=== PATIENT | male | born 1935 | race Caucasian/White ===

== ENCOUNTER → 2020-03-15 09:49 | Outpatient (CLI) | payer MEDICARE, BC, SELFPAY ==
--- NOTE | 2020-03-15 09:55 | US_ITS ---
PROCEDURE: US SOFT TISSUE HEAD AND NECK CLINICAL INDICATION: RT NECK MASS COMPARISON: No exams were available for comparison FINDINGS: A large palpable mass within the area of the right anterior cervical triangle demonstrated a nonvascular solid echogenic lesion measuring 52 millimeters x 24 millimeters x 35 millimeters. 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
== END ==
PROVIDERS: PCP Internal Medicine Adolescent Medicine; Visit Provider Nurse Practitioner Family
DX: R22.1 Localized swelling, mass and lump, neck (principal)
CPT/HCPCS: 76536

== ENCOUNTER → 2022-06-25 10:18 | Outpatient (CLI) | payer MEDICARE, BC, SELFPAY ==
[2022-06-26 13:00] LABS: Hemoglobin A1C 7.1 % (4.0-6.0)
== END ==
PROVIDERS: PCP Family Medicine; Visit Provider Nurse Practitioner Family
DX: R73.09 Other abnormal glucose (principal)
CPT/HCPCS: 83036

== ENCOUNTER → 2022-06-25 11:23 | Outpatient (CLI) | payer MEDICARE, BC, SELFPAY ==
--- NOTE | 2022-06-25 11:34 | XR_ITS ---
FINAL REPORT CLINICAL HISTORY: neck pain FINDINGS: CERVICAL SPINE 2 views were obtained. There is no acute fracture. There is no malalignment. There are moderate and severe degenerative changes with large disc osteophyte complexes at C5-6 and C6-7. There is no soft tissue abnormality. IMPRESSION: Moderate and severe degenerative changes at C5-6 and C6-7. No acute bony abnormality. Reviewed, Interpreted and Dictated by Jabier Santana III, MD Transcribed by Delmy Rodriguez Authenticated and [facility]
--- NOTE | 2022-06-25 11:34 | XR_ITS ---
FINAL REPORT CLINICAL HISTORY: Mid and upper back pain FINDINGS: THORACIC SPINE 2 views were obtained. There is no acute fracture. There is mild rightward curvature. There are moderate degenerative changes with osteophytes. There is no soft tissue abnormality. IMPRESSION: Degenerative change with no acute bony abnormality. Reviewed, Interpreted and Dictated by Jabier Santana III, MD Transcribed by Delmy Rodriguez Authenticated and [facility]
[2022-06-25 18:10] LABS: MANUAL DIFFERENTIAL MANUAL DIFFERENTIAL (MANUAL DIFF)
[2022-06-25 18:18] LABS: Chloride 103 mmol/L (98-107); Potassium 4.7 mmoL/L (3.5-5.1); Sodium 137 mmol/L (136-145)
[2022-06-25 18:21] LABS: Alanine Aminotransferase 24 U/L (12-78); Albumin Level 4.2 g/dl (3.5-5.0); Alkaline Phosphatase 139 U/L (38-126); Anion Gap 13.7 mEq/L (5-15); Aspartate Amino Transferase 35 U/L (17-59); Bilirubin,Total 0.5 mg/dl (0.2-1.3); Blood Urea Nitrogen 13 mg/dl (9-20); Carbon Dioxide 25 mmol/L (22.0-30.0); Estimated Glomerular Filt Rate 92 ml/min (>60); GFR (African American) 111 ML/MIN (>60); Globulin 2.1 g/dL (1.3-3.2); Total Protein,Serum 6.3 g/dl (6.3-8.2)
[2022-06-25 18:22] LABS: Glucose 144 mg/dl (74-100)
[2022-06-25 18:38] LABS: Basophils % 0.5 % (0.1-2.0); Eosinophils # 0.1 K/mm3 (0.0-0.4); Eosinophils % 0.5 % (0.1-12.0); Hematocrit 46.7 % (42.0-52.0); Hemoglobin 15.3 g/dL (14.1-18.0); Lymphocytes % 11.9 % (10-50); Mean Corpuscular HGB Conc 32.8 g/dL (31.8-35.4); Mean Corpuscular Hemoglobin 31.3 pg (27.0-31.2); Mean Corpuscular Volume 95.6 fl (80-94); Mean Platelet Volume 11.6 fl (7.4-10.4); Monocytes # 0.7 K/mm3 (0.1-1.0); Monocytes % 8.8 % (1.7-9.3); Neutrophils # 6.6 K/mm3 (1.8-7.8); Neutrophils % 78.3 % (37.0-80.0); Platelet Count 208 K/mm3 (142-424); Red Blood Count 4.88 M/mm3 (4.60-6.20); White Blood Count 8.4 K/mm3 (4.8-10.8)
[2022-06-25 20:26] LABS: Eosinophils % 2 % (0-3); Lymphocytes % 19 % (10-50); Monocytes % 7 % (2-9); Neutrophils % 72 % (42-76); Platelet Estimate Normal; RBC Morphology Normal; Total Cells Counted 100
== END ==
PROVIDERS: Nurse Practitioner Family; PCP Internal Medicine Adolescent Medicine; Visit Provider Family Medicine
DX: M54.2 Cervicalgia (principal); R73.09 Other abnormal glucose
CPT/HCPCS: 72040; 72070; 80053; 83036; 85007; 85014; 85018; 85048; 85049

== ENCOUNTER → 2022-07-02 08:16 | Outpatient (CLI) | payer MEDICARE, BC, SELFPAY ==
--- NOTE | 2022-07-02 08:16 | CT_ITS ---
FINAL REPORT CLINICAL HISTORY: neck pain, severe degenerative changes on x ray FINDINGS: Axial CT images of the cervical spine were obtained without contrast. Sagittal and coronal reformatted images were also obtained. This study was performed with techniques to keep radiation doses as low as reasonably achievable (ALARA). Individualized dose reduction techniques using automated exposure control or adjustment of mA and/or kV according to the patient's size were employed. There is no evidence of fracture or dislocation. There is mild anterolisthesis of C3 on C4. There are moderate and severe degenerative changes are seen. There are disc osteophyte complexes at C4-5, C5-6, and C6-7 with moderate to severe neural foraminal narrowing at these levels. There is no evidence of canal stenosis. No paraspinous soft tissue abnormality is seen. Limited images of the upper thorax are unremarkable. IMPRESSION: Multilevel degenerative disc disease and spondylosis as above. Reviewed, Interpreted and Dictated by Jabier Santana III, MD Transcribed by Delmy Rodriguez Authenticated and [facility]
== END ==
PROVIDERS: PCP Family Medicine; Visit Provider Nurse Practitioner Family
DX: M54.2 Cervicalgia (principal)
CPT/HCPCS: 72125

== ENCOUNTER 2024-07-08 10:00 | Outpatient (RCR) | payer MEDICARE, BC, SELFPAY | END 2024-07-28 15:00 | disposition home or self-care (01) | LOC: PT 10:00 | PROVIDERS: Visit Provider Nurse Practitioner Family | DX: M54.6 Pain in thoracic spine (principal) | CPT/HCPCS: 97110; 97140; 97163; 97164; 97530 ==

== ENCOUNTER 2025-02-08 15:10 | Outpatient (CLI) | payer MEDICARE, OTHER, SELFPAY ==
--- NOTE | 2025-02-08 15:30 | CT_ITS ---
FINAL REPORT TECHNIQUE: multiple axial CT images were performed from the foramen magnum to the vertex without enhancement. This study was performed with techniques to keep radiation doses as low as reasonably achievable (ALARA). Individualized dose reduction techniques using automated exposure control or adjustment of mA and/or kV according to the patient's size were employed. CLINICAL HISTORY: Encephalopathy COMPARISON: None FINDINGS: The ventricles are enlarged. There is moderate diffuse atrophy. There is periventricular white matter change likely related to small vessel disease. There is no evidence of hemorrhage. No masses are identified. No extra-axial fluid is seen. The sinuses are normal. IMPRESSION: Moderate atrophy and chronic changes without acute process. Reviewed, Interpreted and Dictated by Rainer Drew MD Transcribed by Isabella Machuca Authenticated and . [facility]
[2025-02-08 15:50] LABS: Basophils % 0.5 % (0.1-2.0); Eosinophils # 0.1 Kmm3 (0.0-0.4); Eosinophils % 1.4 % (0.1-12.0); Hematocrit 42.2 % (42.0-52.0); Hemoglobin 13.6 g/dL (14.1-18.0); Immature Granulocytes # 0.02 10^3uL; Immature Granulocytes % 0.4 %; Lymphocytes # 0.9 K/mm3 (0.7-4.5); Lymphocytes % 16.7 % (10-50); Mean Corpuscular HGB Conc 32.2 g/dL (31.8-35.4); Mean Corpuscular Hemoglobin 28.4 pg (27.0-31.2); Mean Corpuscular Volume 88.1 fl (80-94); Mean Platelet Volume 11.7 fl (7.4-10.4); Monocytes # 0.8 K/mm3 (0.1-1.0); Monocytes % 13.9 % (1.7-9.3); Neutrophils # 3.8 K/mm3 (1.8-7.8); Neutrophils % 67.1 % (37.0-80.0); Nucleated Red Blood Cells # 0 10^3/uL; Nucleated Red Blood Cells % 0 %; Platelet Count 184 K/mm3 (142-424); Red Blood Count 4.79 M/mm3 (4.60-6.20); Red Cell Distribution Width 14.3 % (11.5-17.5); Red Cell Distribution Width-SD 45.6 fL; White Blood Count 5.6 K/mm3 (4.8-10.8)
[2025-02-08 15:59] LABS: Alanine Aminotransferase 19 U/L (12-78); Albumin/Globulin Ratio 2.1 (1.1-1.8); Alkaline Phosphatase 109 U/L (38-126); Anion Gap 10.8 mEq/L (5-15); Aspartate Amino Transferase 26 U/L (17-59); Bilirubin,Total 0.6 mg/dl (0.2-1.3); Blood Urea Nitrogen 16 mg/dl (9-20); Calcium 9.4 mg/dl (8.4-10.2); Carbon Dioxide 27 mmol/L (22.0-30.0); Chloride 104 mmol/L (98-107); Estimated Glomerular Filt Rate 48 ml/min (>60); GFR (African American) 58 ML/MIN (>60); Globulin 1.9 g/dL (1.3-3.2); Glucose 108 mg/dl (74-100); Potassium 4.8 mmoL/L (3.5-5.1); Sodium 137 mmol/L (136-145); Total Protein,Serum 5.9 g/dl (6.3-8.2)
[2025-02-08 16:31] LABS: Thyroid Stimulating Hormone 2.78 uIU/mL (0.465-4.68)
[2025-02-08 16:37] LABS: RPR W/RFX Titers Nonreactive (Nonreactive)
[2025-02-08 16:50] LABS: Vitamin B12 603 pg/mL (239-931)
[2025-02-08 16:51] LABS: Erythrocyte Sedimentation Rate 10 mm/hr (0-20)
[2025-02-08 19:03] LABS: Folate 7.19 ng/mL
[2025-02-09 13:17] LABS: Anti-Centromere B Antibodies <0.2 AI (0.0-0.9); Anti-DNA (DS) Ab Qn <1 IU/mL (0-9); Anti-Jo-1 <0.2 AI (0.0-0.9); Anti-Smith Antibody <0.2 AI (0.0-0.9); Antichromatin Antibodies <0.2 AI (0.0-0.9); Antiscleroderma-70 Antibodies <0.2 AI (0.0-0.9); RNP Antibodies <0.2 AI (0.0-0.9); Sjogren's Anti-SS-A <0.2 AI (0.0-0.9); Sjogren's Anti-SS-B <0.2 AI (0.0-0.9)
== END 2025-02-08 23:59 | disposition home or self-care (01) ==
LOC: RAD 15:11
PROVIDERS: PCP Nurse Practitioner Family; Visit Provider Specialist
DX: G31.9 Degenerative disease of nervous system, unspecified (principal); G93.40 Encephalopathy, unspecified; I10 Essential (primary) hypertension
CPT/HCPCS: 36415; 70450; 80053; 82607; 82746; 84443; 85025; 85651; 86225; 86235; 86592

== ENCOUNTER 2025-09-11 09:44 | Inpatient (IN) | payer MEDICARE, OTHER, SELFPAY ==
--- OUTSIDE RECORDS SUMMARY | 2025-07-26 08:56 | XMS_ITS | Continuity of Care Document ---
Author Organization [facility] Phone Care Team Providers Care Support Services Specialist Name Role Phone MIMI ORTEGA Unavailable MIMI ORTEGA Primary Attending [phone] MIMI ORTEGA Admitting JESUS DAVEY Primary Care ALLERGIES AND ADVERSE REACTIONS ALLERGIES AND ADVERSE REACTIONS Code System Allergy Substance Adverse Reaction Date Reaction (Severity) Comment Status Reported By Updated [place] [id number] SNOMED CT Penicillins Adverse reaction to substance Not Specified active [id number] on July 23, 2025 4:40:24 PM [place] [id number] SNOMED CT Penicillins Adverse reaction to substance Not Specified active [id number] on July 23, 2025 4:40:24 PM UTC statins (Free Text Allergy) Adverse reaction to substance Not Specified active [id number] on July 23, 2025 4:40:23 PM UTC RESULTS Patient: VICE FRANCI NATION Date of : [birth year] LABORATORY RESULTS ORDER 100: CBC AUTO W DIFF ( LOINC: 72526-5) ORDER DATE: July 23, 2025 4:36:00 PM UTC Specimen Source: Whole Blood Specimen Type: Whole blood s ample PERFORMING LAB: [address] [id number] Result Comment: Final Result Date: July 23, 2025 4:42:00 PM UTC (TECH: LT) LOINC TEST FLAG RESULT REFERENCE RANGE UPDA FITZ BY 6690-2 Leukocytes [#/volume] in Blood by Automated count N 5.0 10^3/uL 4.5 10^3/uL - 11.5 10^3/uL July 23, 2025 4:42:00 PM UTC (TECH: LT) 789-8 Erythrocytes [#/volume] in Blood by Automated count N 4.28 10^6/uL 4.25 10^6/uL - 5.57 10^6/uL July 23, 2025 4:42:00 PM UTC (TECH: LT) 718-7 Hemoglobin [Mass/volume] in Blood L 12.2 g/dL 13.5 g/dL - 17.2 g/dL July 23, 2025 4:42:00 PM UTC (TECH: LT) 39068-5 Hematocrit [Volume Fraction] of Blood L 37.4 % 42.0 % - 52.0 % July 23, 2025 4:42:00 PM UTC (TECH: LT) 787-2 Erythrocyte mean corpuscular volume [Entitic volume] by Automated count N 87.4 fl 80 fl - 95 fl July 23, 2025 4:42:00 PM UTC (TECH: LT) 40160-1 Erythrocyte mean corpuscular hemoglobin [Entitic mass] in Blood from Fetus by Automated count N 28.5 pg 27.0 pg - 34.0 pg July 23, 2025 4:42:00 PM UTC (TECH: LT) 60696-7 Erythrocyte mean corpuscular hemoglobin concentration [Mass/volume] in Blood from Fetus by Automated count N 32.6 g/dL 32.0 g/dL - 36.0 g/dL July 23, 2025 4:42:00 PM UTC (TECH: LT) 78267-1 Platelets [#/volume] in Blood N 174 10^3/uL 150 10^3/uL - 450 10^3/uL July 23, 2025 4:42:00 PM UTC (TECH: LT) 66642-2 Erythrocyte distribution width [Ratio] N 14.1 % 12.3 % - 15.1 % July 23, 2025 4:42:00 PM UTC (TECH: LT) 75169-3 Platelet mean volume [Entitic volume] in Blood by Automated count H 11.6 fl 7.4 fl - 10.4 fl July 23, 2025 4:42:00 PM UTC (TECH: LT) 18410-1 Granulocytes/100 leukocytes in Blood by Automated count N 72.7 % 40 % - 75 % July 23, 2025 4:42:00 PM UTC (TECH: LT) 736-9 Lymphocytes/100 leukocytes in Blood by Automated count L 14.9 % 15 % - 57 % July 23, 2025 4:42:00 PM UTC (TECH: LT) 5905-5 Monocytes/100 leukocytes in Blood by Automated count N 10.4 % 4.0 % - 12.0 % July 23, 2025 4:42:00 PM UTC (TECH: LT) 713-8 Eosinophils/100 leukocytes in Blood by Automated count N 1.4 % 0.0 % - 4.0 % July 23, 2025 4:42:00 PM UTC (TECH: LT) 706-2 Basophils/100 leukocytes in Blood by Automated count N 0.4 % 0.0 % - 1.0 % July 23, 2025 4:42:00 PM UTC (TECH: LT) 46476-2 Immature granulocytes [#/volume] in Blood N 0.2 % 0.0 % - 0.8 % July 23, 2025 4:42:00 PM UTC (TECH: LT) 52138-4 Granulocytes [#/volume] in Blood by Automated count N 3.62 10^3/uL July 23, 2025 4:42:00 PM UTC (TECH: LT) 731-0 Lymphocytes [#/volume] in Blood by Automated count N 0.74 10^3/uL July 23, 2025 4:42:00 PM UTC (TECH: LT) 742-7 Monocytes [#/volume] in Blood by Automated count N 0.52 10^3/uL July 23, 2025 4:42:00 PM UTC (TECH: LT) 711-2 Eosinophils [#/volume] in Blood by Automated count N 0.07 10^3/uL July 23, 2025 4:42:00 PM UTC (TECH: LT) 704-7 Basophils [#/volume] in Blood by Automated count N 0.02 10^3/uL July 23, 2025 4:42:00 PM UTC (TECH: LT) 65646-0 Immature granulocytes [#/volume] in Blood N 0.01 10^3/uL July 23, 2025 4:42:00 PM UTC (TECH: LT) 63343-4 Manual differential performed [Presence] in Blood N NO July 23, 2025 4:42:00 PM UTC (TECH: LT) ORDER 200: COMP METABOLIC PA SONIA (LOINC: 45428-4) ORDER DATE: July 23, 2025 4:36:00 PM UTC Specimen Source: Plasma Specimen Type: Plasma specim en PERFORMING LAB: [address] [id number] Result Comment: Final Result Date: July 23, 2025 4:55:00 PM UTC (TECH: LT) LOINC TEST FLAG RESULT REFERENCE RANGE UPDA FITZ BY 2951-2 Sodium [Moles/volume ] in Serum or Plasma N 141 mmol/L 136 mmol/L - 145 mmol/L July 23, 2025 4:55:00 PM UTC (TECH: LT) 2823-3 Potassium [Moles/volume] in Serum or Plasma N 4.2 mmol/L 3.5 mmol/L - 5.1 mmol/L July 23, 2025 4:55:00 PM UTC (TECH: LT) 2075-0 Chloride [Moles/volu me] in Serum or Plasma N 107 mmol/L 98 mmol/L - 107 mmol/L July 23, 2025 4:55:00 PM UTC (TECH: LT) 8-9 Carbon dioxide, tota l [Moles/volume] in Serum or Plasma N 26 mmol/L 21 mmol/L - 32 mmol/L July 23, 2025 4:55:00 PM UTC (TECH: LT) 99985-8 Anion gap 3 in Serum or Plasma N 8.0 July 23, 2025 4:55:00 PM UTC (TECH: LT) 2345-7 Glucose [Mass/volume ] in Serum or Plasma H 137 mg/dL 70 mg/dL - 110 mg/dL July 23, 2025 4:55:00 PM UTC (TECH: LT) 3094-0 Urea nitrogen [Mass/volume] in Serum or Plasma N 15 mg/dL 7 mg/dL - 18 mg/dL July 23, 2025 4:55:00 PM UTC (TECH: LT) 2160-0 Creatinine [Mass/volume] in Serum or Plasma N 1.0 mg/dL 0.8 mg/dL - 1.3 mg/dL July 23, 2025 4:55:00 PM UT (TECH: LT) 3097-3 Urea nitrogen/Creatinine [Mass Ratio] in Serum or Plasma N 15.0 9 - July 23, 2025 4:55:00 PM UT (TECH: LT) 61225-5 Glomerular filtratio n rate/1.73 sq M.predicted by Creatinine-based formula (MDRD) N 73 mL/min >60 July 23, 2025 4:55:00 PM UT (TECH: LT) 65276-3 Osmolality of Serum or Plasma by calculated by sum of electrolytes N 296 mosm/kg 275 mosm/kg - 301 mosm/kg July 23, 2025 4:55:00 PM UT (TECH: LT) 2885-2 Protein [Mass/volume ] in Serum or Plasma N 6.4 g/dL 6.4 g/dL - 8.2 g/dL July 23, 2025 4:55:00 PM UT (TECH: LT) 1751-7 Albumin [Mass/volume ] in Serum or Plasma N 3.7 g/dL 3.4 g/dL - 5.0 g/dL July 23, 2025 4:55:00 PM UT (TECH: LT) 34758-7 Calcium [Mass/volume ] in Serum or Plasma N 9.2 mg/dL 8.5 mg/dL - 10.1 mg/dL July 23, 2025 4:55:00 PM UT (TECH: LT) 24556-5 Calcium [Mass/volume ] corrected for total protein in Serum or Plasma N 9.4 mg/dL 8.5 mg/dL - 10.1 mg/dL July 23, 2025 4:55:00 PM UT (TECH: LT) 1975-2 Bilirubin.total [Mass/volume] in Serum or Plasma N 0.8 mg/dL 0.4 mg/dL - 1.5 mg/dL July 23, 2025 4:55:00 PM UT (TECH: LT) 1920-8 Aspartate aminotransferase [Enzymatic activity/volume] in Serum or Plasma N 16 U/L 15 U/L - 37 U/L July 23, 2025 4:55:00 PM UTC (TECH: LT) 1742-6 Alanine aminotransferase [Enzymatic activity/volume] in Serum or Plasma N 18 U/L 12 U/L - 78 U/L July 23, 2025 4:55:00 PM UTC (TECH: LT) 6768-6 Alkaline phosphatase [Enzymatic activity/volume] in Serum or Plasma N 137 U/L July 23, 2025 4:55:00 PM UTC (TECH: LT) ORDER 300: TROPONIN QUANT (L OINC: 35273-7) ORDER DATE: July 23, 2025 4:36:00 PM UTC Specimen Source: Plasma Specimen Type: Plasma specim en PERFORMING LAB: [address] [id number] Result Comment: Final Result Date: July 23, 2025 4:55:00 PM UTC (TECH: LT) LOINC TEST [place] [address]-6 Troponin I.cardiac panel - Serum or Plasma by High sensitivity method N 15 ng/L 0 ng/L - 76 ng/L July 23, 2025 4:55:00 PM UTC (TECH: LT) ORDER 800: GLUCOSE BLD METER (LOINC: 01292-2) ORDER DATE: July 23, 2025 4:51:00 PM UTC Specimen Source: Whole Blood Specimen Type: Whole blood s ample PERFORMING LAB: [address] [id number] Result Comment: July 23, 2025 4:52:00 PM UTC Test performed by: [id number] ; Instrument: [id number] Final Result Date: July 23, 2025 4:51:00 PM UTC (TECH: HL7) LOINC TEST FLAG [place] [address]-8 Glucose [Mass/volume ] in Capillary blood by Glucometer H 134 mg/dl 70 mg/dl - 115 mg/dl July 23, 2025 4:51:00 PM UTC (TECH: HL7) LABORATORY NARRATIVE RESULTS Information is not available RADIOLOGY RESULTS ORDER 400: CT BRAIN HEAD WO (LOINC: 76672-4) ORDER DATE: July 23, 2025 4:36:00 PM UTC PERFORMING LAB: [address] [id number] Final Result Date: June 252024 5:39:43 PM UTC [address] [place] [address] Name: FRANCI MCGOWAN Exam Date: 07/23/2025 : 1935 Age 89 years Gender: M Physician: MIMI ORTEGA Facility: [facility] Facility HSV: Outpatient Exam: CT BRAIN HEAD WO EXAM DESCRIPTION: CT BRAIN HEAD WO CLINICAL HISTORY: 89 years Male, Dizziness COMPARISON: None. TECHNIQUE: Helical CT was performed from skull base to vertex without contrast. One or more of the following dose-optimizing techniques was utilized for this exam: automated exposure control, adjustment of the mA and/or kV according to patient size, and/or use of iterative reconstruction technique. FINDINGS:Ventricle size and sulcal pattern show central greater than cortical atrophy. Intracranial vascular calcifications are present. No intracranial mass, mass effect, hemorrhage, or established acute cortical infarct is demonstrated. No calvarial fracture is identified. The included paranasal sinuses and mastoid air cells are grossly aerated. IMPRESSION: 1. No acute brain abnormality is identified. 2. Cerebral atrophy. Electronically signed by: Daniel Russo MD 07/23/2025 01:43 PM EDT RP Dictated By: Daniel Russo Transcribed By: Transcribed On: 07/23/2025 1:39 PM Electronically signed by: Daniel Russo 07/23/2025 Thank you for referring FRANCI MCGOWAN to [facility]. Legally authenticated by BHAVIK VALENTE MD 2025-07-23 13:39:43 ORDER 900: CT ANGIO CHEST (L OINC: 37314-8) ORDER DATE: July 23, 2025 5:29:00 PM [facility] PERFORMING LAB: [address] [id number] Final Result Date: June 252024 5:45:[address] [place] [address] Name: FRANCI MCGOWAN Exam Date: 07/23/2025 : 1935 Age 89 years Gender: M Physician: MIMI ORTEGA Facility: [facility] Facility HSV: Outpatient Exam: CT ANGIO CHEST EXAMINATION: CTA chest and abdomen CLINICAL INDICATION: Dizziness, near syncope. Rule out aortic dissection. TECHNIQUE: This examination was performed according to an angiographic protocol with 3D post-processing. This involves 3D reconstructions, MIPs, volume rendered images and/or shaded surface rendering. One or more of the following dose reduction techniques were used: Automated exposure control, adjustment of the mA and/or kV according to patient size, and/or iterative reconstruction. Unless otherwise specified, incidental findings do not require dedicated imaging follow-up. [id number]. COMPARISON: CT scan of the chest from 03/05/2020 FINDINGS: CHEST: LUNGS AND AIRWAYS: No nodules or infiltrates. No airspace disease or consolidation. No pleural effusion or pneumothorax. Central airways are patent. MEDIASTINUM AND LYMPH NODES: No mediastinal, hilar or axillary lymphadenopathy. THORACIC AORTA: The thoracic aorta appears to be of normal caliber without evidence of aneurysmal dilatation. No aortic dissection. There is 3 vessel configuration of the aortic arch with marked tortuosity of the proximal brachiocephalic artery. PULMONARY ARTERIES: The pulmonary trunk appears unremarkable. No evidence of pulmonary emboli to the level of the subsegmental arteries. HEART: The heart is not enlarged and without evidence of pericardial effusion. Patient status post CABG. No evidence of right heart strain. Left-sided pacemaker. There is reflux of the contrast into the inferior vena cava and right hepatic veins suggestive of right heart dysfunction. OSSEOUS STRUCTURES AND CHEST WALL: No acute osseous abnormalities are seen. Mild degenerative changes of the risk spine. Abdomen: Mild diffuse hypoattenuation of the liver which appears normal in shape, size and contour. No focal masses are seen. Gallbladder: Calcified stone in the gallbladder. No intrahepatic or extrahepatic biliary dilatation. Pancreas: Unremarkable. Spleen: Unremarkable. Adrenal glands: Unremarkable. Kidneys: No renal stones or hydronephrosis bilaterally. Large renal cyst project at the lateral aspect of the right mid to lower kidney measuring 11 cm Legally authenticated by DAVID LEE MD 2025-07-23 13:45:19 x 8.3 cm. GI system: Small hiatal hernia. No bowel obstruction. No bowel wall thickening. Colonic diverticulosis is seen without CT scan evidence of diverticulitis. Small fat-containing umbilical hernia. No ascites. Lymphatics: No lymphadenopathy. Blood vessels: The abdominal aorta appears to be of normal caliber without evidence of aneurysmal dilatation or dissection. The celiac artery, superior mesenteric artery, inferior mesenteric artery and bilateral renal arteries are patent. Musculoskeletal: No acute osseous abnormalities are seen. Mild degenerative changes of the lumbar spine. IMPRESSION: No evidence of thoracic and abdominal aortic aneurysmal dilatation or dissection. No acute abnormalities are seen. Reflux of the contrast from the heart into the right hepatic vein suggestive of right heart dysfunction. Please correlate clinically. Fatty liver. Cholelithiasis. Large right renal cyst. Colonic diverticulosis. Small fat-containing umbilical hernia. Other chronic and incidental findings as described above. Electronically signed by: William Marquis MD 07/23/2025 02:00 PM EDT RP Dictated By: William Marquis Transcribed By: Transcribed On: 07/23/2025 1:45 PM Electronically signed by: William Marquis 07/23/2025 Thank you for referring FRANCI MCGOWAN to [facility]. Legally authenticated by DAVID LEE MD 2025-07-23 13:45:19 ORDER 1000: CT ANGIO ABDOMEN (LOINC: 80469-5) ORDER DATE: July 23, 2025 5:29:00 PM [facility] PERFORMING LAB: [address] [id number] Final Result Date: June 252024 5:41:[address] [place] [address] Name: FRANCI MCGOWAN Exam Date: 07/23/2025 : 1935 Age 89 years Gender: M Physician: MIMI ORTEGA Facility: [facility] Facility HSV: Outpatient Exam: CT ANGIO ABDOMEN EXAMINATION: CTA chest and abdomen CLINICAL INDICATION: Dizziness, near syncope. Rule out aortic dissection. TECHNIQUE: This examination was performed according to an angiographic protocol with 3D post-processing. This involves 3D reconstructions, MIPs, volume rendered images and/or shaded surface rendering. One or more of the following dose reduction techniques were used: Automated exposure control, adjustment of the mA and/or kV according to patient size, and/or iterative reconstruction. Unless otherwise specified, incidental findings do not require dedicated imaging follow-up. [id number]. COMPARISON: CT scan of the chest from 03/05/2020 FINDINGS: CHEST: LUNGS AND AIRWAYS: No nodules or infiltrates. No airspace disease or consolidation. No pleural effusion or pneumothorax. Central airways are patent. MEDIASTINUM AND LYMPH NODES: No mediastinal, hilar or axillary lymphadenopathy. THORACIC AORTA: The thoracic aorta appears to be of normal caliber without evidence of aneurysmal dilatation. No aortic dissection. There is 3 vessel configuration of the aortic arch with marked tortuosity of the proximal brachiocephalic artery. PULMONARY ARTERIES: The pulmonary trunk appears unremarkable. No evidence of pulmonary emboli to the level of the subsegmental arteries. HEART: The heart is not enlarged and without evidence of pericardial effusion. Patient status post CABG. No evidence of right heart strain. Left-sided pacemaker. There is reflux of the contrast into the inferior vena cava and right hepatic veins suggestive of right heart dysfunction. OSSEOUS STRUCTURES AND CHEST WALL: No acute osseous abnormalities are seen. Mild degenerative changes of the risk spine. Abdomen: Mild diffuse hypoattenuation of the liver which appears normal in shape, size and contour. No focal masses are seen. Gallbladder: Calcified stone in the gallbladder. No intrahepatic or extrahepatic biliary dilatation. Pancreas: Unremarkable. Spleen: Unremarkable. Adrenal glands: Unremarkable. Kidneys: No renal stones or hydronephrosis bilaterally. Large renal cyst project at the lateral aspect of the right mid to lower kidney measuring 11 cm Legally authenticated by DAVID LEE MD 2025-07-23 13:41:59 x 8.3 cm. GI system: Small hiatal hernia. No bowel obstruction. No bowel wall thickening. Colonic diverticulosis is seen without CT scan evidence of diverticulitis. Small fat-containing umbilical hernia. No ascites. Lymphatics: No lymphadenopathy. Blood vessels: The abdominal aorta appears to be of normal caliber without evidence of aneurysmal dilatation or dissection. The celiac artery, superior mesenteric artery, inferior mesenteric artery and bilateral renal arteries are patent. Musculoskeletal: No acute osseous abnormalities are seen. Mild degenerative changes of the lumbar spine. IMPRESSION: No evidence of thoracic and abdominal aortic aneurysmal dilatation or dissection. No acute abnormalities are seen. Reflux of the contrast from the heart into the right hepatic vein suggestive of right heart dysfunction. Please correlate clinically. Fatty liver. Cholelithiasis. Large right renal cyst. Colonic diverticulosis. Small fat-containing umbilical hernia. Other chronic and incidental findings as described above. Electronically signed by: William Marquis MD 07/23/2025 02:00 PM EDT RP Dictated By: William Marquis Transcribed By: Transcribed On: 07/23/2025 1:41 PM Electronically signed by: William Marquis 07/23/2025 Thank you for referring FRANCI MCGOWAN to [facility]. Legally authenticated by DAVID LEE MD 2025-07-23 13:41:59 PATHOLOGY NARRATIVE RESULTS Information is not available MICROBIOLOGY RESULTS No Micro Labs/Results Exist for Patient BLOOD ADMIN RESULTS Information is not available MEDICATIONS HOME MEDICATIONS Status RXNORM NDC Medication Dose Route Frequency Dates Comments Reported By Updated By Active [id number] [id number] 4002 aspirin 81 mg tablet 0.0 ORAL Last Dose: [id number] on July 23, 2025 4:40:26 PM [facility] Active 021506 4713735 1900 carvedilol 25 mg tablet 0.0 ORAL Last Dose: [id number] on July 23, 2025 4:40:26 PM [facility] Active 635110 7609291 4011 tamsulosin 0.4 mg capsule 0.0 MG ORAL Last Dose: [id number] on July 23, 2025 4:40:26 PM [facility] Active FreeTex tMed Aricept oral unknown 0.0 Last Dose: [id number] on July 23, 2025 4:40:26 PM [facility] DISCHARGE MEDICATIONS Status RXNORM NDC Medication Dose Route Frequency Dates Dis pense Data Comments Physician Updated By No Discharge Medication Info rmation Available INPATIENT MEDICATIONS Status RXNORM NDC Medication Dose Route Frequency Rat e Quantity Dates Indication Dispense Data Comments Physician Updated By No Inpatient Medication Info rmation Available SOCIAL HISTORY SOCIAL HISTORY - Smoking Status SNOMED-CT Social History Element Description Effective Dates Offered Cessation Comment Updated By [id number] Current Tobacco smoking status Never Smoked [id number] on July 23, 2025 4:41:31 PM [facility] SOCIAL HISTORY - Gender Sex: Male SOCIAL HISTORY - Status : status i nformation is not available Intention in Next Year: intention information is not available SOCIAL HISTORY - Assessments Code System Description Status Date Value of Assessment Updated By Comment Assessment Information is no t available SOCIAL HISTORY - [place] Affiliation [place] information is not av ailable SOCIAL HISTORY - Legal Sex Legal Sex information is not available SOCIAL HISTORY - Sexual Behavior Sexual Orientation Gender Identity SNOMED-CT Description SNO MED -CT Description Activity Level No of Partners Partner Type UpdatedBy Information is not available SOCIAL HISTORY - Occupation Occupation information is no t available VITAL SIGNS PATIENT VITAL SIGNS This section displays the mo st recent value for each vital sign as of July 26, 2025 1:56:14 PM UTC Loinc Code Vital Sign Activity Date Result Updated By 8310-5 Body temperature July 23 4:17:00 PM UTC 98.4 [degF] 46453-5 Body weight Measured July 23, 2025 4:34:44 PM UTC 68.2 kg (150.0 lb) [id number] on July 23, 2025 4:34:44 PM UTC 8462-4 Diastolic blood pressure July 23, 2025 7:00:00 PM UTC 74.0 mm[Hg] 8867-4 Heart rate July 23, 2025 7:02:00 PM UTC 81 /min 31169-3 Oxygen saturation in Arterial blood by Pulse oximetry July 23, 2025 7:02:00 PM UTC 100.0 % 9279-1 Respiratory rate July 23 4:17:00 PM UTC 18 /min 8480-6 Systolic blood pressure July 23, 2025 7:00:00 PM UTC 156.0 mm[Hg] PEDIATRIC GROWTH CHART - VITAL SIGNS This section displays Head C ircumference Percentile, Weight for Length Percentile and BMI Percentile Loinc Code Pediatric Measure Age (Months) Result Updat ed By No Pediatric Growth Chart Pe rcentile Information Available. HEALTH CONCERNS Problems Concern Status Health Concern problem infor mation not available. Smoking Status Status Years Used Consumed packs p er day Health Concern smoking histo ry information not available. Family History Concern Status Health Concern family histor y information not available. ENCOUNTERS ENCOUNTER INFORMATION Reason for Visit WEAKNESS Admission July 23, 2025 4:16:[address] [id number] Discharge July 23, 2025 7:24:00 PM [facility] DISCHARGED TO HOME OR SELF CARE ENCOUNTER DIAGNOSES Notes information is not marcial ilable. Code System Diagnosis Onset Date Diagnosis information is not available. 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 QHI3 291 on July 26, 2025 1:55:52 PM UTC I10 ICD10 ESSENTIAL (PRIMA RY) HYPERTENSION [id number] on July 26, 2025 1:55:52 PM UTC Z88.0 ICD10 ALLERGY STATUS TO PENICILLIN [id number] on July 26, 2025 1:55:52 PM UTC Z79.899 ICD10 OTHER [facility] (CURRENT) DRUG THERAPY [id number] on July 26, 2025 1:55:52 PM UTC CARE TEAM Care Support Services Specialist Role MIMI ORTEGA Referring MIMI ORTEGA Primary Attending MIMI ORTEGA Admitting JESUS DAVEY Primary Care CARE TEAM CARE marketer Role on Team Location Telecom Status Start Date End Thang e Updated By JORDAN LE MD, MD Referring normal July 23, 2025 4:59:39 PM UTC July 23, 2025 7:24:00 PM UTC [id number] on July 23, 2025 4:59:39 PM UTC JORDAN LE MD, MD Attending normal July 23, 2025 4:59:39 PM UTC July 23, 2025 7:24:00 PM UTC [id number] on July 23, 2025 4:59:39 PM UTC JORDAN LE MD, MD Admitting normal July 23, 2025 4:59:39 PM UTC July 23, 2025 7:24:00 PM UTC [id number] on July 23, 2025 4:59:39 PM UTC PETAR NORIEGA APRN PCP normal July 23, 2025 4:16:46 PM UTC July 23, 2025 7:24:00 PM UTC [id number] on July 23, 2025 4:59:39 PM UTC
--- OUTSIDE RECORDS SUMMARY | 2025-07-27 11:30 | XMS_ITS | Encounter Summary ---
[facility] Address [address] [place] [address] Care Team Providers Care Drug Safety Data Management Specialist Name Role Phone Danisha Nguyen Kimberlyn TR Primary Care Provider [phone] Reason for Visit * Reason Comments Hypertension Encounter Details Date Type Department Care Team (Late st Contact Info) Description 07/27/2025 11:30 AM EST Office Visit [facility] [address] [place] [address] Eliza Sandhu APRN [address] [place], [place] [id number] Persistent atrial fibrillation (Primary Dx); Coronary artery disease involving chickahominy indian tribe heart without angina pectoris, unspecified vessel or lesion type; Pacemaker [Z95.0]; Nonrheumatic mitral valve regurgitation; Hypertension, essential; Pure hypercholesterolemia, unspecified Social History Tobacco Use Types Packs/Day Years Used Date Smoking Tobacco: Former Cigarettes 1 20 Passive Smoke Exposure: Past Smokeless Tobacco: Never Alcohol Use Standard Drinks/Week Comments Never 0 (1 standard drink = 0.6 oz pur e alcohol) Sex and Gender Information Value Date Recorded Sex Assigned at Not on file Legal Sex Male 1:10 PM EST Gender Identity Not on file Sexual Orientation Not on file documented as of this encounter Last Filed Vital Signs Vital Sign Reading Time Taken Comments Blood Pressure 110/68 07/27/2025 11:15 AM EST Pulse 59 07/27/2025 11:15 AM EST Temperature - - Respiratory Rate - - Oxygen Saturation 100% 07/27/2025 11:15 AM EST Inhaled Oxygen Concentration - - Weight 66.2 kg (146 lb) 07/27/2025 11:15 AM EST Height 165.1 cm (5' 5 ) 07/27/2025 11:15 AM EST Body Mass Index 24.3 07/27/2025 11:15 AM EST documented in this encounter Progress Notes * Eliza Sandhu APRN - 07/27/2025 11:30 AM ESTAssociated Problem(s): CAD (coronary artery disease) {Coronary Artery Disease (OPTIONAL):64694} * Eliza Sandhu APRN - 07/27/2025 11:30 AM ESTAssociated Problem(s): Pacemaker * Eliza Sandhu APRN - 07/27/2025 11:30 AM ESTAssociated Problem(s): Nonrheumatic mitral valve regurgitation * Eliza Sandhu APRN - 07/27/2025 11:30 AM ESTAssociated Problem(s): Hypertension, essential {Hypertension is (optional):0020875388} * Eliza Sandhu APRN - 07/27/2025 11:30 AM ESTAssociated Problem(s): Pure hypercholesterolemia, unspecified {Hyperlipidemia A/P Block (Optional):9340951899} Atrial fibrillation - Remote transmission on 07/20/2025 revealed new onset A-fib rate 70s to 90s -Remote transmission today reveals patient continues to be in A-fib rate 70s to 90s - Continue Eliquis 5 mg twice daily and Carvedilol 37.5 mg bid 2. Coronary artery disease - He denies any chest pain or shortness of breath - Continue aspirin 81 mg daily, Eliquis 5 mg twice daily, carvedilol 37.5 mg twice daily 3. Pacemaker - Remote today revealed patient continues to be in A-fib rate 70s to 90s - Patient has a follow-up scheduled on 09/06/2025 for pacemaker interrogation 4. Mitral valve regurgitation - Echo was updated on 03/08/2025 revealed moderate mitral valve regurgitation 5. Hypertension - Blood pressure today 110/68 - Continue carvedilol 37.5 mg twice daily 6. Hypercholesterolemia - Lipid panel in 03/08/2025 revealed LDL 21, total cholesterol 77, and triglycerides 65 - Continue Repatha * Eliza Sandhu APRN - 07/27/2025 11:30 AM EST Images from the original note were not included. [facility] Provider Note Date: 07/27/2025 Name: Valdez Grier : 1935 PCP: Danisha Nguyen APRN Chief Complaint Patient presents with Hypertension Subjective History of Present Illness Valdez Grier is a 89 y.o. male who presents today for followu p of Afib and hospital follow up. Remote transmission on 07/20/2025 revealed new onset atrial fibs with rate 70-90. Patient was started on Eliquis 5 mg twice daily. Patient went to [facility] on 07/23/2025 with weakness via EMS. On arrival to ER symptoms had improved. CT of the brain revealed no acute brain abnormality, cerebral atrophy noted. CT of the chest and abdomen was done revealing reflux of the contrast from the heart into the right hepatic vein suggestive of right heart dysfunction. Patient with history of coronary artery disease, pacemaker, moderate mitral regurgitation, HTN, andHLD. He denies any chest pain, shortness of breath, dizziness, or lower extremity swelling. Patient with dementia, has seen neurologist with started on Aricept. Pt lives at home by himself. Pts ex- is here with pt at visit. Lipid panel in 03/08/2025 revealed LDL 21, total cholesterol 77, triglycerides was 65. reports patient has a history of sleep apnea that was diagnosed years ago however he was not tolerant to PAP therapy. Cardiology History -Coronary artery disease with history of CABG in 1986 and stenting to mid LAD in 2005 and XIMENA to distal SVG-PDA and PTCA to proximal ISR of SVG-PDA in 2018. -[facility] 07/20/22 LMCA: Distal smooth plaque with mild stenosis 25-50%. LAD: Proximal segment pre-existing stent with mild diffuse ISR and associated mild in-stent and in-segment stenosis 0-25%. LCx: [id number] stenosis 70-90%. This a small-moderate sized artery with there are 2 acute angulations proximal to the artery. Circumflex continuation is a small artery with proximal focal stenosis 70-90%. RCA: Proximal occlusion. Coronary Grafts There is a Vein graft that originates at the Aorta Left and attaches to the 1st Ob Olga. Graft is occluded in proximal segment. There is a Vein graft that originates at the Aorta Right and attaches to the R PDA. Pre-existing stents in the proximal, middle and distal segments are patent. There is mild ISR of the proximal stent with mild diffuse stenosis 25-50% (this is identical to 2018). Target artery has a large distribution and no significant antegradestenosis. There is a AMES graft that originates at the AMES and attaches to the Dist LAD. AMES known to be occluded so was not engaged. -St Jl pacemaker implanted 2016 for sick sinus syndrome/sinus node dysfunction. -moderate mitral regurgitation - last echo 03/08/25 *Carotid duplex 02/05/24 - mild bilateral <50% Allergies Allergen Reactions Niacin Unknown - Low Severity Penicillins Unknown - Low Severity 1per pt to RN pt states that he hasn't taken it for 50 years, but it caused a high temp & high fever Pitavastatin Unknown - Low Severity Other reaction(s): Muscle spasm, Muscle stiffness 3Info obtained from Dr Pitts' office [place], [place] Pravastatin Unknown - Low Severity Other reaction(s): muscle weakness, muscle weakness Rosuvastatin Unknown - Low Severity Other reaction(s): Muscle spasm, Muscle stiffness 2Info obtained from Dr Castillo office [place], [place] Simvastatin Unknown - Low Severity Other reaction(s): elevated lft s, elevated lft s Tetracycline Nausea And Vomiting Welchol [Colesevelam] Unknown - Low Severity Current Outpatient Medications: alfuzosin (UROXATRAL) 10 MG 24 hr tablet, Take 1 tablet by mouth Daily., Disp: , Rfl: apixaban (ELIQUIS) 5 MG tablet tablet, Take 1 tablet by mouth 2 (Two) Times a Day., Disp: 60 tablet, Rfl: 3 aspirin 81 MG EC tablet, Take 1 tablet by mouth Daily., Disp: , Rfl: carvedilol (COREG) 25 MG tablet, TAKE 1 AND 1/2 TABLETS TWICE DAILY, Disp: 270 tablet, Rfl: 3 donepezil (ARICEPT) 5 MG tablet, TAKE ONE TABLET BY MOUTH EVERY DAY FOR memory loss, Disp: , Rfl: Evolocumab (Repatha SureClick) solution auto-injector SureClick injection, INJECT 140MG (1 PEN) SUBCUTANEOUSLY EVERY TWO WEEKS, Disp: 2 mL, Rfl: 11 nitroglycerin (NITROSTAT) 0.4 MG SL tablet, Place 1 tablet under the tongue Every 5 (Five) Minutes As Needed for Chest Pain., Disp: 30 tablet, Rfl: 5 tamsulosin (FLOMAX) 0.4 MG capsule 24 hr capsule, , Disp: , Rfl: Past Medical History: Diagnosis Date Anemia CAD (coronary artery disease) Hyperlipidemia Hypertension Mitral valve prolapse Pacemaker Sleep apnea ABH 9; intolerant to CPAP/BiPAP Past Surgical History: Procedure Laterality Date CAROTID STENT CORONARY ARTERY BYPASS GRAFT CYSTOSCOPY W/ LASER LITHOTRIPSY HERNIA REPAIR Family History Problem Relation Name Age of Onset Alzheimer's disease Mother Social History Socioeconomic History Marital status: Tobacco Use Smoking status: Former Current packs/day: 1.00 Average packs/day: 1 pack/day for 20.0 years (20.0 ttl pk-yrs) Types: Cigarettes Passive exposure: Past Smokeless tobacco: Never Vaping Use Vaping status: Never Used Substance and Sexual Activity Alcohol use: Never Drug use: Never Sexual activity: Defer Objective Vital Signs: BP 110/68 (BP Location: Right arm, Patient Position: Sitting, Cuff Size: Adult) Pulse 59 Ht 165.1 cm (65 ) Wt 66.2 kg (146 lb) SpO2 100% BMI 24.30 kg/m?? Estimated body mass index is 24.3 kg/m?? as calculated from the following: Height as of this encounter: 165.1 cm (65 ). Weight as of this encounter: 66.2 kg (146 lb). Physical Exam Constitutional: Appearance: Normal appearance. He is well-developed. HENT: Head: Normocephalic and atraumatic. Eyes: General: No scleral icterus. Pupils: Pupils are equal, round, and reactive to light. Cardiovascular: Rate and Rhythm: Normal rate. Rhythm irregular. Heart sounds: Normal heart sounds. No murmur heard. Pulmonary: Breath sounds: Normal breath sounds. No wheezing or rhonchi. Musculoskeletal: Right lower leg: No edema. Left lower leg: No edema. Skin: Capillary Refill: Capillary refill takes less than 2 seconds. Coloration: Skin is not cyanotic. Nails: There is no clubbing. Neurological: Mental Status: He is alert and oriented to person, place, and time. Motor: No weakness. Gait: Gait normal. Psychiatric: Mood and Affect: Mood normal. Behavior: Behavior is cooperative. Thought Content: Thought content normal. Cognition and Memory: Memory normal. Assessment and Plan Assessment & Plan Persistent atrial fibrillation Coronary artery disease involving chick[place]om[place] indian tribe heart without angina pectoris, unspecified vessel or lesion type Pacemaker [Z95.0] Nonrheumatic mitral valve regurgitation Hypertension, essential Pure hypercholesterolemia, unspecified Atrial fibrillation - Remote transmission on 07/20/2025 revealed new onset A-fib rate 70s to 90s -Remote transmission today reveals patient continues to be in A-fib rate 70s to 90s - Continue Eliquis 5 mg twice daily and Carvedilol 37.5 mg bid 2. Coronary artery disease - He denies any chest pain or shortness of breath - Continue aspirin 81 mg daily, Eliquis 5 mg twice daily, carvedilol 37.5 mg twice daily 3. Pacemaker - Remote today revealed patient continues to be in A-fib rate 70s to 90s - Patient has a follow-up scheduled on 09/06/2025 for pacemaker interrogation 4. Mitral valve regurgitation - Echo was updated on 03/08/2025 revealed moderate mitral valve regurgitation 5. Hypertension - Blood pressure today 110/68 - Continue carvedilol 37.5 mg twice daily 6. Hypercholesterolemia - Lipid panel in 03/08/2025 revealed LDL 21, total cholesterol 77, and triglycerides 65 - Continue Repatha Recommendations: Report if any new/changing symptoms immediately Follow Up No follow-ups on file. Eliza Sandhu APRN Cardiology and Sleep [facility] 07/27/2025 Please note that this explicitly excludes time spent on other separate billable services such as performing procedures or test interpretation, when applicable. documented in this encounter Plan of Treatment Upcoming Encounters Date Type Department Care Team (Late st Contact Info) Description 09/20/2025 1:15 PM EST Office Visit [facility] [address] [place] [address] [place] [id number] Huang Valdez MD [address] [place] [address] [place] [address] 09/29/2025 2:45 PM EST Office Visit [facility] C[facility] [address] [place] [address] [place] [phone] Willow Rodgers APRN [address] [place] [id number] 09/29/2025 2:45 PM EST Clinical Support No Requirements [facility] [address] [place] [address] [place] [address] documented as of this encounter Visit Diagnoses Diagnosis Persistent atrial fibrillation- Primary Atrial fibrillation Coronary artery disease involving chickahominy indian tribe heart without angina pectoris, unspecified vessel or lesion type Pacemaker [Z95.0] Cardiac pacemaker in situ Nonrheumatic mitral valve regurgitation Hypertension, essential Unspecified essential hypertension Pure hypercholesterolemia, unspecified documented in this encounter Care Teams Drug Safety Data Management Specialist Relationship Specialty Start Date End Date Danisha Nguyen APRN [address] [place], [place] [id number] PCP - General Family Medicine 02/05/24 documented as of this encounter
--- OUTSIDE RECORDS SUMMARY | 2025-08-19 14:44 | XMS_ITS | Encounter Summary ---
Author Organization [facility] Address [address] [place] [address] Care Team Providers Care Emergency Room Tech Name Role Phone Danisha Nguyen TR Primary Care Provider [phone] Reason for Visit * Reason Comments Syncope * Auth/Cert Specialty Diagnoses / Procedures Referred By Contac t Referred To Contact Referral ID Status Reason Start Date Expiration Date Visits Re quested Visits Authorized [id number] 1 1 Encounter Details Date Type Department Care Team (Late st Contact Info) Description 08/19/2025 2:44 PM EST - 08/25/2025 11:37 AM EST Hospital Encounter [address] [place] [id number] Daniel Mackey MD [address] [place] [address] Nancy Vail MD [address] [place] [address] James Tineo MD [address] [place] [address] Thomas Segura MD [address] [place] [address] Brandon Clements MD [address] [facility] [place] [address] [place] [address] Acute GI bleeding (Primary Dx); Acute blood loss anemia; Hypotension, unspecified hypotension type; Anticoagulated Discharge Disposition: Home or Self Care Social History Tobacco Use Types Packs/Day Years Used Date Smoking Tobacco: Former Cigarettes 1 20 Passive Smoke Exposure: Past Smokeless Tobacco: Never Alcohol Use Standard Drinks/Week Comments Never 0 (1 standard drink = 0.6 oz pur e alcohol) AUDIT-C Answer Date Recorded Q1: How often do you have a drink containing alcohol? Never 08/19/2025 Q2: How many drinks containi ng alcohol do you have on a typical day when you are drinking? Patient does not drink Q3: How often do you have si x or more drinks on one occasion? Never 08/19/2025 Abuse Screen Answer Date Recorded Feels Unsafe at Home or Work/School no 08/19/2025 Feels Threatened by Someone no 07/25 Does Anyone Try to Keep You From Having Contact with Others or Doing Things Outside Your Home? no 08/19/2025 Physical Signs of Abuse Present no 08/19/2025 Housing Stability Answer Date Recorded Current Living Arrangements home 10/2024 Potentially Unsafe Housing Conditions Not on bryce e 08/24/2025 Disabilities Answer Date Recorded Difficulty Concentrating, Remembering or Making Decisions yes 08/19/2025 Difficulty Managing Errands Independently yes 08/19/2025 Education Answer Date Recorded Help with school or training? Not on file Preferred Language Finnish 08/23/2025 Sex and Gender Information Value Date Recorded Sex Assigned at Not on file Legal Sex Male 1:10 PM EST Gender Identity Not on file Sexual Orientation Not on file documented as of this encounter Last Filed Vital Signs Vital Sign Reading Time Taken Comments Blood Pressure 126/76 08/25/2025 4:30 AM EST Pulse 82 08/25/2025 4:30 AM EST Temperature 36.9 C (98.4 F) 08/25/2025 4:30 AM EST Respiratory Rate 18 08/25/2025 4:30 AM EST Oxygen Saturation 93% 08/25/2025 4:30 AM EST Inhaled Oxygen Concentration - - Weight 65.1 kg (143 lb 8 oz) 08/25/2025 5:45 AM EST Height 167.6 cm (5' 6 ) 08/19/2025 2:51 PM EST Body Mass Index 23.16 08/19/2025 2:51 PM EST documented in this encounter Functional Status * AUDIT-C (Alcohol Use Disorders Identification Test) Question Answer Date of Assessment Author AUDIT-C Score 0 08/19/2025 10:52 PM Rosario Lea RN Q1: How often do you have a drink containing alcohol? Never 08/19/2025 10:52 PM Rosario Lea RN Q2: How many drinks containing alcohol do you have on a typical day when you are drinking? Patient does not drink 08/19/2025 10:52 PM Rosario Lea RN Q3: How often do you have six or more drinks on one occasion? Never 08/19/2025 10:52 PM Rosario Lea RN * Calculated C-SSRS Risk Score (Lifetime/Recent) Answer Date of Assessment Author No Risk Indicated 08/19/2025 2:55 PM Briseida Carter RN * [place] Suicide Severity Rating Scale (Screener/Recent Self-Report) Question Answer Date of Assessment Author 1. Wish to be (Past 1 Month) No 025 2:55 PM Michelle Carter RN 2. Non-Specific Active Suici laurel Thoughts (Past 1 Month) No 08/19/2025 2:55 PM Michelle Carter RN 6. Suicidal Behavior (Lifetime) No 2:55 PM Michelle Carter RN documented as of this encounter Discharge Summaries * Brandon Clements MD - 08/25/2025 8:24 AM EST Images from the original note were not included. [facility] DISCHARGE SUMMARY Patient Name: Valdez Grier : 1935 Date of Admission: 08/19/2025 2:44 PM Date of Discharge: 08/25/2025 Primary Care Physician: Danisha Nguyen APRN Consults Date and Time Order Name Status Description 08/19/2025 5:55 PM Inpatient Gastroenterology Consult Completed Hospital Course Presenting Problem: GIB Active Hospital Problems Diagnosis POA GI bleed [K92.2] Yes Resolved Hospital Problems No resolved problems to display. Hospital Course: Valdez Grier is an 89-year-old male with a history of coronary artery disease status post CABG, hypertension, dyslipidemia, atrial fibrillation, sick sinus syndrome status post pacemaker, and obstructive sleep apnea intolerant of CPAP, who was admitted with acute gastrointestinal bleeding after presenting with multiple episodes of melena and a near syncopal episode at home. On admission, he wasfound to have severe anemia with hemoglobin as low as 5.7 g/dL, and was hypotensive, prompting ICU admission. Initial evaluation included laboratory studies confirming acute blood loss anemia and mild thrombocytopenia, as well as CT imaging of the chest, abdomen, and pelvis, which excluded aortic dissection and other acute intra-abdominal pathology but noted several incidental findings including groundglass pulmonary nodules, cholelithiasis, and prostatomegaly. He received volume resuscitation, Kcentra, and transfusion of two units of packed red blood cells, with subsequent stabilization of hemoglobin above 7 g/dL. Anticoagulation and aspirin were held on admission. Gastroenterology was consulted, and esophagogastroduodenoscopy (EGD) was performed, revealing a non- obstructing Schatzki ring, small hiatal hernia, a single angioectasia in the stomach with contact bleeding (treated with argon beam coagulation and hemostatic clips), duodenal erosions without bleeding, and a single non-bleeding angioectasia in the duodenum (also treated with argon beam coagulation). He was managed with intravenous PPI transitioned to oral pantoprazole and sucralfate following endoscopic therapy. Following an appropriate observation period his apixaban was resumed with stability of his anemia noted. He will be discharged on PPI/carafate with PCP follow up. Discharge Follow Up Recommendations for outpatient labs/diagnostics: As written Day of Discharge HPI: Denies pain. No bleeding. Tolerating PO. Review of Systems As abvoe Vital Signs: Temp: [97.9 ??F (36.6 ??C)-98.4 ??F (36.9 ??C)] 98.4 ??F (36.9 ??C) Heart Rate: [82-129] 82 Resp: [16-18] 18 BP: (111-163)/(55-125) 126/76 Physical Exam: NAD, alert OP clear, dry MM Neck supple RRR CTAB +BS, soft ADAMS Normal affect Pertinent and/or Most Recent Results LAB RESULTS: Lab 08/25/25 0548 08/24/25 0536 08/23/25 0722 08/23/25 0257 08/22/25 1912 08/21/25 1231 08/21/25 0314 08/20/25 1218 08/20/25 0735 08/20/25 0033 08/19/25 1833 08/19/25 1814 08/19/25 1508 WBC 7.91 5.94 -- 6.73 -- -- 6.69 -- 6.49 5.88 -- -- 7.47 HEMOGLOBIN 8.7* 8.2* 7.7* 7.3* 8.0* < > 7.7* < > 7.4* 6.8* 5.9* < > 6.8* HEMATOCRIT 27.9* 26.1* 24.1* 23.5* 26.9* < > 23.9* < > 23.3* 22.7* 19.4* < > 22.1* PLATELETS 175 150 -- 141 -- -- 130* -- 130* 137* -- -- 201 NEUTROS ABS 5.36 4.12 -- 4.32 -- -- 4.66 -- 4.71 -- -- -- 5.93 IMMATURE GRANS (ABS) 0.02 0.03 -- 0.03 -- -- 0.02 -- 0.03 -- -- -- 0.02 LYMPHS ABS 1.12 0.80 -- 1.05 -- -- 1.00 -- 0.80 -- -- -- 0.74 MONOS ABS 1.23* 0.82 -- 1.18* -- -- 0.90 -- 0.93* -- -- -- 0.75 EOS ABS 0.15 0.15 -- 0.13 -- -- 0.08 -- 0.01 -- -- -- 0.02 MCV 90.0 88.8 -- 89.7 -- -- 89.8 -- 88.3 90.4 -- -- 87.0 PROCALCITONIN -- -- -- -- -- -- -- -- -- -- -- -- 0.05 LACTATE -- -- -- -- -- -- -- -- -- 1.3 2.3* -- 3.5* PROTIME -- -- -- -- -- -- -- -- -- -- -- -- 23.8* < > = values in this interval not displayed. Lab 08/24/25 0536 08/23/25 0257 08/22/25 1611 08/22/25 0638 08/21/25 0314 08/20/25 0735 08/20/25 0033 SODIUM 140 140 -- 140 144 142 143 POTASSIUM 3.9 4.1 4.8 3.6 4.2 4.3 4.4 CHLORIDE 107 109* -- 109* 114* 113* 113* CO2 25.1 24.1 -- 22.6 20.5* 19.5* 21.4* ANION GAP 7.9 6.9 -- 8.4 9.5 9.5 8.6 BUN 12.1 13.0 -- 11.4 19.5 22.9 24.9* CREATININE 0.75* 0.90 -- 0.85 0.98 0.95 1.05 EGFR 87.3 82.7 -- 84.1 74.6 77.5 68.7 GLUCOSE 97 100* -- 122* 80 87 98 CALCIUM 8.8 8.5* -- 8.8 8.6 8.8 9.0 IONIZED CALCIUM -- -- -- -- -- -- 1.22 MAGNESIUM -- 2.2 -- 2.1 2.4 2.1 2.1 PHOSPHORUS -- -- -- 2.5 3.2 3.3 3.7 Lab 08/20/25 0735 08/19/25 1508 TOTAL PROTEIN 4.9* 5.6* ALBUMIN 3.6 3.8 GLOBULIN 1.3 1.8 ALT (SGPT) 8 9 AST (SGOT) 16 20 BILIRUBIN 2.1* 0.9 ALK PHOS 86 116 Lab 08/19/25 1608 08/19/25 1508 HSTROP T 24* 25* PROTIME -- 23.8* INR -- 1.98* Lab 08/19/25 1717 08/19/25 1600 ABO TYPING A A RH TYPING Negative Negative ANTIBODY SCREEN -- Negative Brief Urine Lab Results (Last result in the past 365 days) Color Clarity Blood Leuk Est Nitrite Protein CREAT Urine HCG 08/19/25 1825 Dark Yellow Cloudy Negative Trace Negative Trace Microbiology Results (last 10 days) Procedure Component Value - Date/Time Blood Culture - Blood, Arm, Right [[id number]] (Normal) Collected: 08/19/251725 Lab Status: Final result Specimen: Blood from Arm, Right Updated: 08/24/251945 Blood Culture No growth at 5 days Blood Culture - Blood, Hand, Right [[id number]] (Normal) Collected: 08/19/251716 Lab Status: Final result Specimen: Blood from Hand, Right Updated: 08/24/251945 Blood Culture No growth at 5 days Narrative: Aerobic Bottle Only CT Angiogram Chest Result Date: 08/19/2025 CT ANGIOGRAM CHEST, CT ANGIOGRAM ABDOMEN PELVIS Date of Exam: 08/19/2025 3:28 PM EST Indication: Suspect Dissection. Comparison: None available. Technique: CTA of the chest was performed after the uneventful intravenous administration of iodinated contrast. Reconstructed coronal and sagittal imageswere also obtained. In addition, a 3-D volume rendered image was created for interpretation. Automated exposure control and iterative reconstruction methods were used. Findings: Chest: Initial noncontrast imaging demonstrates no aortic intramural hematoma. Hypodense cardiac blood pool compatible with anemia. Left-sided AICD noted. 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 Subsequently postcontrast images obtained. Normal opacification of the aortic arch without aortic dissection. Aortic arch branch vasculature patent. No pericardial or pleural effusion. Negative for mediastinal, hilar, or axillary adenopathy. No pulmonary embolus. Moderate atherosclerotic calcification of the aortic arch and descending thoracic aorta. Negative for pneumothorax. The tra gray and mainstem bronchi are patent. No hemothorax. No consolidation or findings to indicate pneumonia. There are few scattered areas of groundglass opacity for example in the right upper lobe measuring 16 mm (5/39 and the right lower lobe measuring 9 mm (5/51). Groundglass area of nodularity in the left upper lobe measures 18 mm (5/22). No suspicious solid pulmonary nodule. Thoracic vertebral bodies are maintained in height. The posterior spinous processes are intact. No aggressive osseous lesion or acute fracture. Abdomen and pelvis: Initial noncontrast imaging of the abdomen and pelvis demonstrates no renal calculus or ureteral calculus. Pelvic calcifications compatible with phleboliths. Small calcified gallstones. Subsequently postcontrast images were obtained. Liver is normal in size and contour. Reflux of contrast to the hepatic veins likely related to right heart insufficiency. Normal caliber common bile duct. No pericholecystic inflammation. Normal spleen. Normal adrenal glands. No abnormality of the pancreas. There is a large exophytic cyst at the lateral aspect of the right kidney which measures up to 10 cm. Negative for hydronephrosis or hydroureter. Bladder unremarkable. Prostatomegaly with the prostate measuring 6 cm in transverse diameter. Negative for pneumoperitoneum. No bowel obstruction. Colonic diverticulosis without diverticulitis. No findings of appendicitis. Moderate atherosclerotic calcification of the abdominal aorta. The celiac artery is patent. Thesuperior mesenteric artery is patent. Bilateral renal arteries are patent. Moderate atheroscleroticcalcification of the proximal right renal artery. The inferior mesenteric artery is patent. Negative for abdominal aortic aneurysm or dissection. The bilateral common and external iliac arteries are patent. Left and right internal iliac branches are diminutive., Femoral arteries patent bilaterally.Visualized proximal portions of the superficial femoral and deep profunda femoral arteries are patent. The lumbar vertebral bodies are maintained in height. No aggressive osseous lesion or acute fracture. The posterior spinous processes are intact. The transverse spinous processes are intact. Moderate bilateral hip osteoarthritis. No pelvic fracture. Impression: 1. Negative for aortic dissection. 2. No acute traumatic findings in the chest, abdomen, or pelvis. 3. Several groundglass pulmonary nodules largest 18 mm in the left upper lobe. These are nonspecific, correlation with any prior outside imaging recommended if available, otherwise consider 6-month follow-up. 4. Prostatomegaly, cholelithiasis and additional incidental findings above. Chr onic findings above. Electronically Signed: Dion Rai MD 08/19/2025 4:24 PM EST Workstation ID: [id number] CT Angiogram Abdomen Pelvis Result Date: 08/19/2025 CT ANGIOGRAM CHEST, CT ANGIOGRAM ABDOMEN PELVIS Date of Exam: 08/19/2025 3:28 PM EST Indication: Suspect Dissection. Comparison: None available. Technique: CTA of the chest was performed after the uneventful intravenous administration of iodinated contrast. Reconstructed coronal and sagittal imageswere also obtained. In addition, a 3-D volume rendered image was created for interpretation. Automated exposure control and iterative reconstruction methods were used. Findings: Chest: Initial noncontrast imaging demonstrates no aortic intramural hematoma. Hypodense cardiac blood pool compatible with anemia. Left-sided AICD noted. 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 Subsequently postcontrast images obtained. Normal opacification of the aortic arch without aortic dissection. Aortic arch branch vasculature patent. No pericardial or pleural effusion. Negative for mediastinal, hilar, or axillary adenopathy. No pulmonary embolus. Moderate atherosclerotic calcification of the aortic arch and descending thoracic aorta. Negative for pneumothorax. The tra gray and mainstem bronchi are patent. No hemothorax. No consolidation or findings to indicate pneumonia. There are few scattered areas of groundglass opacity for example in the right upper lobe measuring 16 mm (5/39 and the right lower lobe measuring 9 mm (5/51). Groundglass area of nodularity in the left upper lobe measures 18 mm (5/22). No suspicious solid pulmonary nodule. Thoracic vertebral bodies are maintained in height. The posterior spinous processes are intact. No aggressive osseous lesion or acute fracture. Abdomen and pelvis: Initial noncontrast imaging of the abdomen and pelvis demonstrates no renal calculus or ureteral calculus. Pelvic calcifications compatible with phleboliths. Small calcified gallstones. Subsequently postcontrast images were obtained. Liver is normal in size and contour. Reflux of contrast to the hepatic veins likely related to right heart insufficiency. Normal caliber common bile duct. No pericholecystic inflammation. Normal spleen. Normal adrenal glands. No abnormality of the pancreas. There is a large exophytic cyst at the lateral aspect of the right kidney which measures up to 10 cm. Negative for hydronephrosis or hydroureter. Bladder unremarkable. Prostatomegaly with the prostate measuring 6 cm in transverse diameter. Negative for pneumoperitoneum. No bowel obstruction. Colonic diverticulosis without diverticulitis. No findings of appendicitis. Moderate atherosclerotic calcification of the abdominal aorta. The celiac artery is patent. Thesuperior mesenteric artery is patent. Bilateral renal arteries are patent. Moderate atheroscleroticcalcification of the proximal right renal artery. The inferior mesenteric artery is patent. Negative for abdominal aortic aneurysm or dissection. The bilateral common and external iliac arteries are patent. Left and right internal iliac branches are diminutive., Femoral arteries patent bilaterally.Visualized proximal portions of the superficial femoral and deep profunda femoral arteries are patent. The lumbar vertebral bodies are maintained in height. No aggressive osseous lesion or acute fracture. The posterior spinous processes are intact. The transverse spinous processes are intact. Moderate bilateral hip osteoarthritis. No pelvic fracture. Impression: 1. Negative for aortic dissection. 2. No acute traumatic findings in the chest, abdomen, or pelvis. 3. Several groundglass pulmonary nodules largest 18 mm in the left upper lobe. These are nonspecific, correlation with any prior outside imaging recommended if available, otherwise consider 6-month follow-up. 4. Prostatomegaly, cholelithiasis and additional incidental findings above. Chr onic findings above. Electronically Signed: Dion Rai MD 08/19/2025 4:24 PM EST Workstation ID: [id number] CT Head Without Contrast Result Date: 08/19/2025 CT HEAD WO CONTRAST, CT CERVICAL SPINE WO CONTRAST Date of Exam: 08/19/2025 3:36 PM EST Indication:fall, head injury. Comparison: None available. Technique: Axial CT images were obtained of the headand cervical spine without contrast administration. Automated exposure control and iterative construction methods were used. Findings: Head: Generalized cerebral volume loss. Dilatation of the lateral ventricles most compatible with central atrophy. Mild white matter findings suggesting chronic microvascular disease. No intraventricular hemorrhage. No abnormal extra-axial fluid collection. The posterior fossa is without acute abnormality. The globes are intact and symmetric. There is no retro-orbital abnormality. The mastoid air cells are well-aerated. Negative for calvarial fracture. Visualized sinuses are clear. Cervical spine: Straightening of the cervical lordosis. Negative for acute fracture. Severe disc narrowing at C4-5, C5-6 and C6-7. Posterior spinous processes are intact. No locked or perched facet. The dens is intact. The occipital condyles are intact bilaterally. Lateral masses of C1 are normally aligned on C2. Small posterior disc osteophytes noted at C4-5, C5-6 and C6-7 contribute to mild canal stenosis. Uncovertebral spurring and facet contributes to moderate bilateral foraminal stenosis at C4-5, C5-6 and C6-7. The included lung apices are clear. No apical pneumothorax. Bilateral carotid bulb atherosclerotic calcifications. Noncontrast soft tissues of the neck arewithout acute abnormality. Impression: HEAD: 1.No intracranial hemorrhage or acute intracranial abnormality. 2.Generalized cerebral atrophy with white matter findings of chronic microvascular disease. CERVICAL SPINE: 3.Negative for cervical spine fracture. 4.Multilevel cervical spondylosis above. Electronically Signed: Dion uribe MD 08/19/2025 4:00 PM EST Workstation ID: [id number] CT Cervical Spine Without Contrast Result Date: 08/19/2025 CT HEAD WO CONTRAST, CT CERVICAL SPINE WO CONTRAST Date of Exam: 08/19/2025 3:36 PM EST Indication:fall, head injury. Comparison: None available. Technique: Axial CT images were obtained of the headand cervical spine without contrast administration. Automated exposure control and iterative construction methods were used. Findings: Head: Generalized cerebral volume loss. Dilatation of the lateral ventricles most compatible with central atrophy. Mild white matter findings suggesting chronic microvascular disease. No intraventricular hemorrhage. No abnormal extra-axial fluid collection. The posterior fossa is without acute abnormality. The globes are intact and symmetric. There is no retro-orbital abnormality. The mastoid air cells are well-aerated. Negative for calvarial fracture. Visualized sinuses are clear. Cervical spine: Straightening of the cervical lordosis. Negative for acute fracture. Severe disc narrowing at C4-5, C5-6 and C6-7. Posterior spinous processes are intact. No locked or perched facet. The dens is intact. The occipital condyles are intact bilaterally. Lateral masses of C1 are normally aligned on C2. Small posterior disc osteophytes noted at C4-5, C5-6 and C6-7 contribute to mild canal stenosis. Uncovertebral spurring and facet contributes to moderate bilateral foraminal stenosis at C4-5, C5-6 and C6-7. The included lung apices are clear. No apical pneumothorax. Bilateral carotid bulb atherosclerotic calcifications. Noncontrast soft tissues of the neck arewithout acute abnormality. Impression: HEAD: 1.No intracranial hemorrhage or acute intracranial abnormality. 2.Generalized cerebral atrophy with white matter findings of chronic microvascular disease. CERVICAL SPINE: 3.Negative for cervical spine fracture. 4.Multilevel cervical spondylosis above. Electronically Signed: Dion uribe MD 08/19/2025 4:00 PM EST Workstation ID: [id number] Results for orders placed in visit on 02/05/24 Duplex Carotid Ultrasound CAR 02/07/2024 3:44 PM Interpretation Summary Right internal carotid artery demonstrates a less than 50% stenosis. Left internal carotid artery demonstrates a less than 50% stenosis. Normal vertebral artery doppler flow bilaterally. Results for orders placed in visit on 02/05/24 Duplex Carotid Ultrasound CAR 02/07/2024 3:44 PM Interpretation Summary Right internal carotid artery demonstrates a less than 50% stenosis. Left internal carotid artery demonstrates a less than 50% stenosis. Normal vertebral artery doppler flow bilaterally. Results for orders placed in visit on 03/08/25 Adult Transthoracic Echo Complete W/ Cont if Necessary Per Protocol 03/08/2025 12:46 PM Interpretation Summary Left ventricular systolic function is normal. Calculated left ventricular EF = 60.4% Left ventricular ejection fraction appears to be 56 - 60%. Left ventricular diastolic function is consistent with (grade III w/high LAP) reversible restrictive pattern. Moderate mitral valve regurgitation is present. Moderate pulmonary hypertension is present. I have personally reviewed the therapy plans: [] PT/OT/ ST Therapy Plans Plan for Follow-up of Pending Labs/Results: Reviewed Discharge Details Discharge Medications New Medications Instructions Start Date pantoprazole 40 MG EC tablet Commonly known as: PROTONIX 40 mg, Oral, Daily sucralfate 1 g tablet Commonly known as: CARAFATE 1 g, Oral, 4 Times Daily Before Meals & Nightly Continue These Medications Instructions Start Date alfuzosin 10 MG 24 hr tablet Commonly known as: UROXATRAL 10 mg, Daily aspirin 81 MG EC tablet 81 mg, Daily carvedilol 25 MG tablet Commonly known as: COREG 37.5 mg, Oral, 2 Times Daily donepezil 5 MG tablet Commonly known as: ARICEPT TAKE ONE TABLET BY MOUTH EVERY DAY FOR memory loss nitroglycerin 0.4 MG SL tablet Commonly known as: NITROSTAT 0.4 mg, Sublingual, Every 5 Minutes PRN Repatha SureClick solution auto-injector SureClick injection Generic drug: Evolocumab INJECT 140MG (1 PEN) SUBCUTANEOUSLY EVERY TWO WEEKS tamsulosin 0.4 MG capsule 24 hr capsule Commonly known as: FLOMAX ASK your doctor about these medications Instructions Start Date apixaban 5 MG tablet tablet Commonly known as: ELIQUIS 5 mg, Oral, 2 Times Daily Allergies Allergen Reactions Niacin Unknown - Low Severity Penicillins Unknown - Low Severity 1per pt to RN pt states that he hasn't taken it for 50 years, but it caused a high temp & high fever Pitavastatin Unknown - Low Severity Other reaction(s): Muscle spasm, Muscle stiffness 3Info obtained from Dr Pitts' office [place] Pravastatin Unknown - Low Severity Other reaction(s): muscle weakness, muscle weakness Rosuvastatin Unknown - Low Severity Other reaction(s): Muscle spasm, Muscle stiffness 2Info obtained from Dr [facility] [place] [place] Simvastatin Unknown - Low Severity Other reaction(s): elevated lft s, elevated lft s Tetracycline Nausea And Vomiting Welchol [Colesevelam] Unknown - Low Severity Discharge Disposition: Home or Self Care Diet: Hospital: Diet Order Procedures Diet: Gastrointestinal; Fiber-Restricted; Texture: Soft to Chew (NDD 3); Soft to Chew: Whole Meat; Fluid Consistency: Thin (IDDSI 0) Standing Status: Standing Number of Occurrences: 1 Diets:: Gastrointestinal Gastrointestinal Diet:: Fiber-Restricted Texture:: Soft to Chew (NDD 3) Soft to Chew:: Whole Meat Fluid Consistency:: Thin (IDDSI 0) Activity: Restrictions or Other Recommendations: CODE STATUS: There are no questions and answers to display. Future Appointments Date Time Provider Department Center 09/06/2025 12:30 PM Anita Alvaregna MD [facility] 09/06/2025 12:30 PM [facility] DEVICE [facility] Additional Instructions for the Follow-ups that You Need to Schedule Discharge Follow-up with PCP As directed Currently Documented PCP: Danisha Nguyen APRN PCP Follow Up Details: Next week with BLAS Clements MD 08/25/25 Time Spent on Discharge: I spent 40 minutes on this discharge activity which included: [id number] with the patient, reviewing the data in the system, coordination of the care with the nursing staff as well as consultants, documentation, and entering orders. documented in this encounter Medications at Time of Discharge alfuzosin (UROXATRAL) 10 MG 24 hr tabletIndication s:Pure hypercholesterol emia, unspecified Take 1 tablet by mouth Daily. 06/14/2023 apixaban (ELIQUIS) 5 MG tablet tablet Take 1 tablet by mouth 2 (Two) Times a Day. 180 tablet 3 08/13/2025 aspirin 81 MG EC tabletIndication s:Pure hypercholesterol emia, unspecified Take 1 tablet by mouth Daily. carvedilol (COREG) 25 MG tablet TAKE 1 AND 1/2 TABLETS TWICE DAILY 270 tablet 3 02/17/2025 nitroglycerin (NITROSTAT) 0.[address] 1 tablet under the tongue Every 5 (Five) Minutes As Needed for Chest Pain. 30 tablet 5 03/19/2023 pantoprazole (PROTONIX) 40 MG EC tablet Take 1 tablet by mouth Daily for 90 days. 30 tablet 2 08/25/2025 10:49 AM EST 08/25/2025 11/24/19 26 tamsulosin (FLOMAX) 0.4 MG capsule 24 hr capsule 12/28/2024 Evolocumab (Repatha SureClick) solution auto-injector SureClick injectionIndicat ions:Pure hypercholesterol emia, unspecified INJECT 140MG (1 PEN) SUBCUTANEOUSLY EVERY TWO WEEKS 2 mL 11 11/09/2024 09/06/20 25 sucralfate (CARAFATE) 1 g tablet Take 1 tablet by mouth 4 (Four) Times a Day Before Meals & at Bedtime for 10 doses. 10 tablet 08/25/2025 10:49 AM EST 08/25/2025 08/28/20 25 donepezil (ARICEPT) 5 MG tablet TAKE ONE TABLET BY MOUTH EVERY DAY FOR memory loss 01/26/2025 09/06/20 25 documented as of this encounter Progress Notes * Brandon Clements MD - 08/24/2025 8:56 AM EST Images from the original note were not included. [facility] PROGRESS NOTE Patient Name: Valdez Grier : 1935 Date of Admission: 08/19/2025 Primary Care Physician: Danisha Nguyen APRN Subjective Subjective CC: GIB HPI: No issues. Constipated now. Objective Objective Vital Signs: Temp: [96.8 ??F (36 ??C)-98.1 ??F (36.7 ??C)] 97.9 ??F (36.6 ??C) Heart Rate: [81-131] 101 Resp: [18] 18 BP: (92-163)/(60-87) 163/87 Physical Exam: NAD, alert, POA/caregiver at bedside OP clear, dry MM Neck supple Tachy CTAB +BS, soft ADAMS Results Reviewed: LAB RESULTS: Lab 08/24/25 0536 08/23/25 0722 08/23/25 0257 08/22/25 1912 08/22/25 0638 08/21/25 1231 08/21/25 0314 08/20/25 1218 08/20/25 0735 08/20/25 0033 08/19/25 1833 08/19/25 1814 08/19/25 1608 08/19/25 1508 WBC 5.94 -- 6.73 -- -- -- 6.69 -- 6.49 5.88 -- -- -- 7.47 HEMOGLOBIN 8.2* 7.7* 7.3* 8.0* 8.5* < > 7.7* < > 7.4* 6.8* 5.9* < > -- 6.8* HEMATOCRIT 26.1* 24.1* 23.5* 26.9* 26.9* < > 23.9* < > 23.3* 22.7* 19.4* < > -- 22.1* PLATELETS 150 -- 141 -- -- -- 130* -- 130* 137* -- -- -- 201 NEUTROS ABS 4.12 -- 4.32 -- -- -- 4.66 -- 4.71 -- -- -- -- 5.93 IMMATURE GRANS (ABS) 0.03 -- 0.03 -- -- -- 0.02 -- 0.03 -- -- -- -- 0.02 LYMPHS ABS 0.80 -- 1.05 -- -- -- 1.00 -- 0.80 -- -- -- -- 0.74 MONOS ABS 0.82 -- 1.18* -- -- -- 0.90 -- 0.93* -- -- -- -- 0.75 EOS ABS 0.15 -- 0.13 -- -- -- 0.08 -- 0.01 -- -- -- -- 0.02 MCV 88.8 -- 89.7 -- -- -- 89.8 -- 88.3 90.4 -- -- -- 87.0 PROCALCITONIN -- -- -- -- -- -- -- -- -- -- -- -- -- 0.05 LACTATE -- -- -- -- -- -- -- -- -- 1.3 2.3* -- -- 3.5* PROTIME -- -- -- -- -- -- -- -- -- -- -- -- -- 23.8* HSTROP T -- -- -- -- -- -- -- -- -- -- -- -- 24* 25* < > = values in this interval not displayed. Lab 08/24/25 0536 08/23/25 0257 08/22/25 1611 08/22/25 0638 08/21/25 0314 08/20/25 0735 08/20/25 0033 SODIUM 140 140 -- 140 144 142 143 POTASSIUM 3.9 4.1 4.8 3.6 4.2 4.3 4.4 CHLORIDE 107 109* -- 109* 114* 113* 113* CO2 25.1 24.1 -- 22.6 20.5* 19.5* 21.4* ANION GAP 7.9 6.9 -- 8.4 9.5 9.5 8.6 BUN 12.1 13.0 -- 11.4 19.5 22.9 24.9* CREATININE 0.75* 0.90 -- 0.85 0.98 0.95 1.05 EGFR 87.3 82.7 -- 84.1 74.6 77.5 68.7 GLUCOSE 97 100* -- 122* 80 87 98 CALCIUM 8.8 8.5* -- 8.8 8.6 8.8 9.0 IONIZED CALCIUM -- -- -- -- -- -- 1.22 MAGNESIUM -- 2.2 -- 2.1 2.4 2.1 2.1 PHOSPHORUS -- -- -- 2.5 3.2 3.3 3.7 Lab 08/20/25 0735 08/19/25 1508 TOTAL PROTEIN 4.9* 5.6* ALBUMIN 3.6 3.8 GLOBULIN 1.3 1.8 ALT (SGPT) 8 9 AST (SGOT) 16 20 BILIRUBIN 2.1* 0.9 ALK PHOS 86 116 Lab 08/19/25 1608 08/19/25 1508 HSTROP T 24* 25* PROTIME -- 23.8* INR -- 1.98* Lab 08/19/25 1717 08/19/25 1600 ABO TYPING A A RH TYPING Negative Negative ANTIBODY SCREEN -- Negative Brief Urine Lab Results (Last result in the past 365 days) Color Clarity Blood Leuk Est Nitrite Protein CREAT Urine HCG 08/19/25 1825 Dark Yellow Cloudy Negative Trace Negative Trace Microbiology Results Abnormal None No radiology results from the last 24 hrs Results for orders placed in visit on 03/08/25 Adult Transthoracic Echo Complete W/ Cont if Necessary Per Protocol 03/08/2025 12:46 PM Interpretation Summary Left ventricular systolic function is normal. Calculated left ventricular EF = 60.4% Left ventricular ejection fraction appears to be 56 - 60%. Left ventricular diastolic function is consistent with (grade III w/high LAP) reversible restrictive pattern. Moderate mitral valve regurgitation is present. Moderate pulmonary hypertension is present. I have personally reviewed the therapy plans: [] PT/OT/ ST Therapy Plans Current medications: Scheduled Meds:carvedilol, 12.5 mg, Oral, BID With Meals donepezil, 5 mg, Oral, Nightly pantoprazole, 40 mg, Oral, Q AM sucralfate, 1 g, Oral, 4x Daily AC & at Bedtime Continuous Infusions: PRN Meds:. acetaminophen OR [DISCONTINUED] acetaminophen senna-docusate sodium AND polyethylene glycol AND bisacodyl AND bisacodyl melatonin nitroglycerin ondansetron Potassium Replacement - Follow Nurse / BPA Driven Protocol Assessment & Plan Assessment & Plan Active Hospital Problems Diagnosis POA GI bleed [K92.2] Yes Resolved Hospital Problems No resolved problems to display. Brief Hospital Course to date: Valdez Grier is an 89-year-old male with a history of coronary artery disease status post CABG, hypertension, dyslipidemia, atrial fibrillation, sick sinus syndrome status post pacemaker, and obstructive sleep apnea intolerant of CPAP, who presented with acute gastrointestinal bleeding GIB -EGD on 08/20 revealed a non-obstructing Schatzki ring, small hiatal hernia, a single angioectasia in the stomach with contact bleeding treated with argon beam coagulation and hemostatic clips, duodenal erosions without bleeding, and a single non-bleeding angioectasia in the duodenum also treated with argon beam coagulation -PPI/carafate Anemia -stable Atrial fibrillation -resume apixaban and monitor H&H HTN SSS/PPM DL MCI/on aricept Expected Discharge Location and Transportation: Home Expected Discharge TBD Expected discharge date/ time has not been documented. VTE Prophylaxis: No VTE prophylaxis order currently exists. AM-PAC 6 Clicks Score (PT): 23 (08/23/25 1806) CODE STATUS: There are no questions and answers to display. Brandon Clements MD 08/24/25 * Thomas Segura MD - 08/23/2025 8:36 AM EST Images from the original note were not included. 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 male is followed for: Syncope GI bleed As an [employer], we have completed an accredited Critical Care program and maintain Board Certification and dedicate most of our professional work to critical/intensive care. We serve as the sales floor team leader or member of an interprofessional team, coordinating and guiding healthcare professionals to pr ovide specialized care for critically ill patients. We manage and resuscitate patients with, or at risk for, critical illness and organ failure and initiate interventions to prevent imminent deterioration. (2023 Consensus Statement from the Society of Critical Care Medicine Defining Reconnaissance Man Task Force. [facility] 2024. DOI: 10.1097/[facility].[id number] Interval History: POD: 3 Days Post-Op Procedure(s) (LRB): ESOPHAGOGASTRODUODENOSCOPY (N/A) Doing well. Walking with PT/RN. No active bleeding. Temp Min: 97.7 ??F (36.5 ??C) Max: 98.3 ??F (36.8 ??C) History Last Reviewed by Thomas Segura MD on 08/23/2025 at 8:36 AM Sections Reviewed Medical, Surgical, Family, Tobacco, Alcohol, Drug Use, Sexual Activity, Social Documentation Problem list reviewed by Thomas Segura MD on 08/23/2025 at 8:36 AM Medicines reviewed by Thomas Segura MD on 08/23/2025 at 8:36 AM Allergies reviewed by Thomas Segura MD on 08/23/2025 at 8:36 AM The patient's relevant past medical, surgical and social history were reviewed and updated in Epic as appropriate. OBJECTIVE Physical Examination Vitals: Temp: 97.7 ??F (36.5 ??C) (08/23/25399) Temp Min: 97.7 ??F (36.5 ??C) Max: 98.3 ??F (36.8 ??C) Temp core: BP: 130/93 (08/23/25826) BP Min: 94/61 Max: 159/99 MAP (non-invasive) Noninvasive MAP (mmHg): 105 (08/23/25599) Noninvasive MAP (mmHg) Av.4 Min: 56 Max: 122 Pulse: 93 (08/23/25826) Pulse Min: 80 Max: 138 Resp: 20 (08/23/25399) Resp Min: 16 Max: 20 SpO2: 100 % (08/23/25599) SpO2 Min: 87 % Max: 100 % Device: room air (08/23/25599) Flow Rate: 3 (08/20/252299) No data recorded Intake/Ouptut 24 hrs (7:00AM - 6:59 AM) Intake & Output (last 2 days) 08/21 P.O. 420 380 I.V. (mL/kg) 46.3 (0.7) Total Intake(mL/kg) 466.3 (6.9) 380 (6) Urine (mL/kg/hr) 2175 (1.3) 1450 (1) Total Output 2175 1450 Net -1708.7 -1070 Medications (drips): 08/20/2559908/23/25526 Weight: 67.3 kg (148 lb 5.9 oz) 63.5 kg (139 lb 15.9 oz) Telemetry: Rhythm: atrial rhythm, paced rhythm (08/23/25599) Atrial Rhythm: atrial fibrillation (08/23/25599) Constitutional: No acute distress. Cardiovascular: RRR. Respiratory: Normal breath sounds No adventitious sounds Abdominal: Soft with no tenderness. Extremities: No Edema Neurological: Alert, Oriented, Cooperative. Best Eye Response: 4-->(E4) spontaneous (08/23/25599) Best Motor Response: 6-->(M6) obeys commands (08/23/25599) Best Verbal Response: 4-->(V4) confused (08/23/25599) Marlen Coma Scale Score: 14 (08/23/25599) Lines, Drains & Airways Active LDAs Name Placement date Placement time Site Days Peripheral IV 08/22/25 1010 20 G Distal;Posterior;Right Forearm 08/22/25 1010 Forearm less than 1 Results Reviewed: Laboratory Microbiology Radiology Pathology Hematology: Results from last 7 days Lab Units 08/23/25 0722 08/23/2525608/22/25 1912 08/21/25 1231 08/21/25 0314 08/20/25 1218 08/20/25 0735 WBC 10*3/mm3 -- 6.73 -- -- 6.69 -- 6.49 HEMOGLOBIN g/dL 7.7* 7.3* 8.0* < > 7.7* < > 7.4* MCV fL -- 89.7 -- -- 89.8 -- 88.3 PLATELETS 10*3/mm3 -- 141 -- -- 130* -- 130* < > = values in this interval not displayed. Results from last 7 days Lab Units 08/23/2525608/21/25 0314 08/20/25 0735 NEUTROS ABS 10*3/mm3 4.32 4.66 4.71 LYMPHS ABS 10*3/mm3 1.05 1.00 0.80 EOS ABS 10*3/mm3 0.13 0.08 0.01 Chemistry: Estimated Creatinine Clearance: 51.9 mL/min (by C-G formula based on SCr of 0.9 mg/dL). Results from last 7 days Lab Units 08/23/2525608/22/25 1611 08/22/25 0638 SODIUM mmol/L 140 -- 140 POTASSIUM mmol/L 4.1 4.8 3.6 CHLORIDE mmol/L 109* -- 109* CO2 mmol/L 24.1 -- 22.6 BUN mg/dL 13.0 -- 11.4 CREATININE mg/dL 0.90 -- 0.85 GLUCOSE mg/dL 100* -- 122* Results from last 7 days Lab Units 08/23/25 0257 08/22/25 0638 08/21/25 0314 08/20/25 0735 08/20/25 0033 IONIZED CALCIUM mmol/L -- -- -- -- 1.22 CALCIUM mg/dL 8.5* 8.8 8.6 < > 9.0 MAGNESIUM mg/dL 2.2 2.1 2.4 < > 2.1 PHOSPHORUS mg/dL -- 2.5 3.2 < > 3.7 < > = values in this interval not displayed. Hepatic Panel: Results from last 7 days Lab Units 08/20/25 0735 08/19/25 1508 ALBUMIN g/dL 3.6 3.8 TOTAL PROTEIN g/dL 4.9* 5.6* BILIRUBIN mg/dL 2.1* 0.9 AST (SGOT) U/L 16 20 ALT (SGPT) U/L 8 9 ALK PHOS U/L 86 116 Coagulation Labs: Results from last 7 days Lab Units 08/19/25 1508 PROTIME Seconds 23.8* INR 1.98* Cardiac Labs: Results from last 7 days Lab Units 08/19/25 1608 08/19/25 1508 HSTROP T ng/L 24* 25* Biomarkers: Results from last 7 days Lab Units 08/20/25 0033 08/19/25 1833 08/19/25 1508 LACTATE mmol/L 1.3 2.3* 3.5* PROCALCITONIN ng/mL -- -- 0.05 U/A Results from last 7 days Lab Units 08/19/25 1825 COLOR UA Dark Yellow* CLARITY UA Cloudy* PH, URINE 5.5 SPECIFIC GRAVITY, URINE >1.030* GLUCOSE UA Negative KETONES UA Trace* BILIRUBIN UA Negative PROTEIN UA Trace* BLOOD UA Negative LEUKOCYTES UA Trace* NITRITE UA Negative UROBILINOGEN UA 2.0 E.U./dL* Results from last 7 days Lab Units 08/19/25 1825 RBC UA /HPF 3-5* WBC UA /HPF 0-2 BACTERIA UA /HPF None Seen SQUAM EPITHEL UA /HPF 0-2 HYALINE CASTS UA /LPF 13-20 Images: No radiology results for the last day Echo: Results for orders placed in visit on 03/08/25 Adult Transthoracic Echo Complete W/ Cont if Necessary Per Protocol Interpretation Summary Left ventricular systolic function is normal. Calculated left ventricular EF = 60.4% Left ventricular ejection fraction appears to be 56 - 60%. Left ventricular diastolic function is consistent with (grade III w/high LAP) reversible restrictive pattern. Moderate mitral valve regurgitation is present. Moderate pulmonary hypertension is present. Results: Reviewed. I reviewed the patient's new laboratory and imaging results. I independently reviewed the patient's new images. Medications: Reviewed. Assessment A/P Assessment/Management/Treatment Plan: Hospital: LOS: 4 days ICU: 3d 11h Active Hospital Problems Diagnosis POA GI bleed [K92.2] Yes Valdez is a 89 y.o. male admitted on 08/19/2025 with GI bleed [K92.2] 2 days prior to admission, he had multiple episodes of black tarry stools. He had a near syncopal episode at home and was brought to the emergency room. Initial hemoglobin was 6.8, and then dropped to 5.7. In February of this year his hemoglobin was 13. He received fluids, Kcentra and PRBCs. CT Chest and A/P: some gallstones without cholecystitis and an enlarged prostate. He did have a left upper lobe lung nodule. He denies fever. He denies abdominal pain or hematemesis. He does take a baby aspirin every day. Hedoes not consume alcohol. He has a remote history of tobacco abuse. He denies a previous history ofulcer disease. Comorbidities: hypertension, dyslipidemia, sick sinus syndrome status post pacer, atrial fibrillation, sleep apnea intolerant of CPAP, who was placed on Eliquis 1 week prior to admission for atrial fibrillation. GIB EGD 08/20: Non-obstructing Schatzki ring. Small hiatal hernia. A single angioectasia in the stomach with contact bleeding. Treated with argon beam coagulation. Clips (MR conditional) were placed. Duodenal erosions without bleeding. A single non-bleeding angioectasia in the duodenum. Treated with argon beam coagulation. Sleep Medicine ADAM, intolerant to CPAP. Cardiovascular A Fib, recently started on APIxaban (currently on hold). HTN Dyslipidemia SSS s/p PPM Cognitive impairment on Donepezil. Endocrine Body mass index is 22.6 kg/m??. Normal: 18.5-24.9kg/m2 No history of Diabetes No results found for: HGBA1C Results from last 7 days Lab Units 08/22/25 0531 08/21/25 0520 08/20/25 2314 08/20/25 1723 08/20/25 1204 08/20/25 0621 08/19/25 2357 08/19/25 1519 GLUCOSE mg/dL 110 86 95 81 88 86 96 138* VTE Prophylaxis: No VTE prophylaxis order currently exists. Diet: Diet: Gastrointestinal; Fiber-Restricted; Texture: Soft to Chew (NDD 3); Soft to Chew: Whole Meat; Fluid Consistency: Thin (IDDSI 0) In brief: Follow up Hb in AM PPI and carafate as per Dr. Wagner. Goal: Glucose < 180 mg/dL. Disposition: Transfer to Telemetry Unit Need to re-start APIxaban, tomorrow if not signs of bleeding. Plan of care and goals reviewed during interdisciplinary rounds. I discussed the patient's findings and my recommendations with patient and nursing staff MDM: Problem(s) High due to: Acute or Chronic illness or injury that may poses a threat to life or bodily function Data: Moderate due to: Review of prior external records from each unique source, Review or results of each unique test, and Ordering of each unique test Moderate [x] Primary Attending Intensive Care Medicine - Nutrition Support [] Maintenance Helper Copied text in this note has been reviewed and is accurate as of 08/23/25 * James Tineo MD - 08/22/2025 11:29 AM EST Images from the original note were not included. Intensive Care Follow-up Hospital: LOS: 3 days Mr. Vadlez Grier, 89 y.o. male is followed for: GI bleed History of present illness: 89 y.o. male with hypertension, dyslipidemia, sick sinus syndrome status post pacer, atrial fibrillation, sleep apnea intolerant of CPAP, who was placed on Eliquis 1 week ago for atrial fibrillation.Over the last 2 days he has had multiple episodes of black tarry stools. He had a near syncopal episode at home and was brought to the emergency room. Initial hemoglobin was 6.8, and then dropped to 5.7. In February of this year his hemoglobin was 13. He received fluids, Kcentra and 2 units of packed cells has been ordered. He was having some rigors so CT of the chest and abdomen was done. He has no pneumonia, some gallstones without cholecystitis and an enlarged prostate. He did have a left upper lobe lung nodule. He denies fever. He denies abdominal pain or hematemesis. He does take a baby aspirin every day. He does not consume alcohol. He has a remote history of tobacco abuse. He denies a previous history of ulcer disease. Subjective Interval History: Overnight had rapid ventricular rate. Also apparently was delirious per family and did not sleep well last night. Today morning calm and cooperative. No further bleeding noted. Hemoglobin is stable. Blood pressure is acceptable. The patient's past medical, surgical and social history were reviewed and updated in [facility] as appropriate. Objective Infusions: Medications: donepezil, 5 mg, Oral, Nightly mupirocin, 1 Application, Each Nare, BID pantoprazole, 40 mg, Oral, Q AM potassium chloride, 40 mEq, Oral, Q4H sucralfate, 1 g, Oral, 4x Daily AC & at Bedtime Vital Sign Min/Max for last 24 hours Temp Min: 98 ??F (36.7 ??C) Max: 98.8 ??F (37.1 ??C) BP Min: 104/52 Max: 149/91 Pulse Min: 73 Max: 126 Resp Min: 16 Max: 18 SpO2 Min: 81 % Max: 100 % No data recorded Input/Output for last 24 hour shift 08/21 0701 - 08/22 0700 In: 466.3 [P.O.:420; I.V.:46.3] Out: 2175 [Urine:2175] Objective: Vital signs: (most recent): Blood pressure 127/82, pulse 98, temperature 98.8 ??F (37.1 ??C), temperature source Axillary, resp. rate 16, height 167.6 cm (66 ), weight 67.3 kg (148 lb 5.9 oz), SpO2 98%. General Appearance: Awake, alert, in no acute distress Lungs: B/L Breath sounds present with decreased breath sounds on bases, no wheezing heard, no crackles. Heart: S1 and S2 present, no murmur Abdomen: Soft, nontender, no guarding or rigidity, bowel sounds positive. Extremities: no edema, warm to touch. Neurologic: Moving all four extremities. Good strength bilaterally. Psychological: Normal affect, Cooperative Results from last 7 days Lab Units 08/22/25 0638 08/21/25 2340 08/21/25 1814 08/21/25 1231 08/21/25 0314 08/20/25 1218 08/20/25 0735 08/20/25 0033 WBC 10*3/mm3 -- -- -- -- 6.69 -- 6.49 5.88 HEMOGLOBIN g/dL 8.5* 8.0* 7.9* < > 7.7* < > 7.4* 6.8* PLATELETS 10*3/mm3 -- -- -- -- 130* -- 130* 137* < > = values in this interval not displayed. Results from last 7 days Lab Units 08/22/25 0638 08/21/25 0314 08/20/25 0735 SODIUM mmol/L 140 144 142 POTASSIUM mmol/L 3.6 4.2 4.3 CO2 mmol/L 22.6 20.5* 19.5* BUN mg/dL 11.4 19.5 22.9 CREATININE mg/dL 0.85 0.98 0.95 MAGNESIUM mg/dL 2.1 2.4 2.1 PHOSPHORUS mg/dL 2.5 3.2 3.3 GLUCOSE mg/dL 122* 80 87 Estimated Creatinine Clearance: 58.3 mL/min (by C-G formula based on SCr of 0.85 mg/dL). Images: CT chest abdomen pelvis reviewed Impression: 1. Negative for aortic dissection. 2. No acute traumatic findings in the chest, abdomen, or pelvis. 3. Several groundglass pulmonary nodules largest 18 mm in the left upper lobe. These are nonspecific, correlation with any prior outside imaging recommended if available, otherwise consider 6-month follow-up. 4. Prostatomegaly, cholelithiasis and additional incidental findings above. Chronic findings above. Electronically Signed: Dion Rai MD 08/19/2025 4:24 PM EST ... I reviewed the patient's results and images. CT head reviewed CT Head Without Contrast Final result 08/19/2025 CT HEAD WO CONTRAST, CT CERVICAL SPINE WO CONTRAST Date of Exam: 08/19/2025 3:36 PM EST Indication: fall, head injury. Comparison: None available. Technique: Axial CT images were obtained of the head and cervical spine without contrast administration. Automated exposure control and iterative construction methods were used. ... Impression: HEAD: 1.No intracranial hemorrhage or acute intracranial abnormality. 2.Generalized cerebral atrophy with white matter findings of chronic microvascular disease. CERVICAL SPINE: 3.Negative for cervical spine fracture. 4.Multilevel cervical spondylosis above. Assessment & Plan Impression GI bleed Plan 1. Patient presented with severe symptomatic anemia resulting in syncopal episode and fall. No intracranial pathology noted otherwise. Symptomatically getting better after blood transfusion. Continueto monitor closely. Change hemoglobin checks to every 12 hours. No further bleeding noted. 2. Recent start of Eliquis and now presenting with black tarry stools suggesting upper GI source ofbleeding. Patient was given Kcentra and fluids as well as antibiotics. No indication to continue antibiotics at this point. Underwent endoscopy and found to have 2 angioectasia which were treated. Nofurther bleeding. Continue PPI. If remained stable hopefully Eliquis can be started tomorrow with close monitoring. 3. Mild thrombocytopenia likely consumptive thrombocytopenia. Stable. 4. Patient having issues with A-fib with rapid ventricular rate. Has been on carvedilol at home andwe will go ahead and slowly resume that as tolerated hemodynamically. 5. Underlying cognitive impairment and has been on donepezil. Continue donepezil. Having problems sleeping at night will use as needed melatonin. Continue to reorient frequently. 6. Tolerating full liquid diet. Will Lopez to soft diet today. Discussed plan of care with patient and family. Will continue close monitoring in ICU. Plan of care and goals reviewed with multidisciplinary/antibiotic stewardship team during rounds. I discussed the patient's findings and my recommendations with patient and nursing staff Time spent 34min (exclusive of procedure time) including high complexity decision making to assess,manipulate, and support vital organ system failure in this individual who has impairment of one or more vital organ systems such that there is a high probability of imminent or life threatening deterioration in the patient???s condition. Above documentation reviewed and reflect accurate information as of 08/22/2025 including copied elements of the note. James Tineo MD, [facility] Pulmonary, Critical care and Sleep Medicine * James Tineo MD - 08/21/2025 11:18 AM EST Images from the original note were not included. Intensive Care Follow-up Hospital: LOS: 2 days Mr. Valdez Grier, 89 y.o. male is followed for: GI bleed History of present illness: 89 y.o. male with hypertension, dyslipidemia, sick sinus syndrome status post pacer, atrial fibrillation, sleep apnea intolerant of CPAP, who was placed on Eliquis 1 week ago for atrial fibrillation.Over the last 2 days he has had multiple episodes of black tarry stools. He had a near syncopal episode at home and was brought to the emergency room. Initial hemoglobin was 6.8, and then dropped to 5.7. In February of this year his hemoglobin was 13. He received fluids, Kcentra and 2 units of packed cells has been ordered. He was having some rigors so CT of the chest and abdomen was done. He has no pneumonia, some gallstones without cholecystitis and an enlarged prostate. He did have a left upperlobe lung nodule. He denies fever. He denies abdominal pain or hematemesis. He does take a baby aspirin every day. He does not consume alcohol. He has a remote history of tobacco abuse. He denies a previous history of ulcer disease. Subjective Interval History: Overnight no acute events. No further episodes of bleeding. Patient received 2 units of blood transfusion on arrival. 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 Argon beam coagulation for hemostasis was done and 3 hemostatic clips were placed as well. Another angioectasia and second portion of duodenum was noted and argon beam hemostasis wasachieved. The patient's past medical, surgical and social history were reviewed and updated in [facility] as appropriate. Objective Infusions: lactated ringers, 9 mL/hr, Last Rate: 9 mL/hr (08/21/25 0307) Medications: mupirocin, 1 Application, Each Nare, BID pantoprazole, 40 mg, Oral, Q AM sucralfate, 1 g, Oral, 4x Daily AC & at Bedtime Vital Sign Min/Max for last 24 hours Temp Min: 97.8 ??F (36.6 ??C) Max: 98.6 ??F (37 ??C) BP Min: 102/73 Max: 159/93 Pulse Min: 73 Max: 137 Resp Min: 16 Max: 20 SpO2 Min: 82 % Max: 100 % Flow (L/min) (Oxygen Therapy) Min: 2 Max: 3 Input/Output for last 24 hour shift 08/20 701 - 08/21 700 In: 1084 [P.O.:880; I.V.:204] Out: 725 [Urine:725] Objective: Vital signs: (most recent): Blood pressure 102/73, pulse 89, temperature 97.8 ??F (36.6 ??C), temperature source Axillary, resp. rate 18, height 167.6 cm (66 ), weight 67.3 kg (148 lb 5.9 oz), SpO2 98%. General Appearance: Awake, alert, in no acute distress Lungs: B/L Breath sounds present with decreased breath sounds on bases, no wheezing heard, no crackles. Heart: S1 and S2 present, no murmur Abdomen: Soft, nontender, no guarding or rigidity, bowel sounds positive. Extremities: no edema, warm to touch. Neurologic: Moving all four extremities. Good strength bilaterally. Psychological: Normal affect, Cooperative Results from last 7 days Lab Units 08/21/2531308/21/25 0026 08/20/25 1940 08/20/25 1218 08/20/2535 08/20/25 0033 WBC 10*3/mm3 6.69 -- -- -- 6.49 5.88 HEMOGLOBIN g/dL 7.7* 7.2* 7.6* < > 7.4* 6.8* PLATELETS 10*3/mm3 130* -- -- -- 130* 137* < > = values in this interval not displayed. Results from last 7 days Lab Units 08/21/2531308/20/25 0735 08/20/25 0033 SODIUM mmol/L 144 142 143 POTASSIUM mmol/L 4.2 4.3 4.4 CO2 mmol/L 20.5* 19.5* 21.4* BUN mg/dL 19.5 22.9 24.9* CREATININE mg/dL 0.98 0.95 1.05 MAGNESIUM mg/dL 2.4 2.1 2.1 PHOSPHORUS mg/dL 3.2 3.3 3.7 GLUCOSE mg/dL 80 87 98 Estimated Creatinine Clearance: 50.6 mL/min (by C-G formula based on SCr of 0.98 mg/dL). Images: CT chest abdomen pelvis reviewed Impression: 1. Negative for aortic dissection. 2. No acute traumatic findings in the chest, abdomen, or pelvis. 3. Several groundglass pulmonary nodules largest 18 mm in the left upper lobe. These are nonspecific, correlation with any prior outside imaging recommended if available, otherwise consider 6-month follow-up. 4. Prostatomegaly, cholelithiasis and additional incidental findings above. Chronic findings above. Electronically Signed: Dion Rai MD 08/19/2025 4:24 PM EST ... I reviewed the patient's results and images. CT head reviewed CT Head Without Contrast Final result 08/19/2025 CT HEAD WO CONTRAST, CT CERVICAL SPINE WO CONTRAST Date of Exam: 08/19/2025 3:36 PM EST Indication: fall, head injury. Comparison: None available. Technique: Axial CT images were obtained of the head and cervical spine without contrast administration. Automated exposure control and iterative construction methods were used. ... Impression: HEAD: 1.No intracranial hemorrhage or acute intracranial abnormality. 2.Generalized cerebral atrophy with white matter findings of chronic microvascular disease. CERVICAL SPINE: 3.Negative for cervical spine fracture. 4.Multilevel cervical spondylosis above. Assessment & Plan Impression GI bleed Plan 1. Patient presented with severe symptomatic anemia resulting in syncopal episode and fall. No intracranial pathology noted otherwise. Symptomatically getting better after blood transfusion. Continueto monitor closely. Follow H&H every 6 hours. Hemoglobin remained stable no further bleeding. 2. Recent start of Eliquis and now presenting with black tarry stools suggesting upper GI source ofbleeding. Patient was given Kcentra and fluids as well as antibiotics. No indication to continue antibiotics at this point. Underwent endoscopy and found to have 2 angioectasia which were treated. Nofurther bleeding. Continue PPI. Recommendation is to hold anticoagulation for 48 to 72 hours and ifremains stable will resume anticoagulation and monitor closely. 3. Mild thrombocytopenia likely consumptive thrombocytopenia. Will trend for now. Levels are stable. 4. Patient has been on carvedilol at home. Will resume once hemodynamically more stable. 5. Underlying cognitive impairment and has been on donepezil. Resume donepezil today. 6. Tolerating full liquid diet. Further advancement as per GI team. Discussed plan of care with patient and family. Will continue close monitoring in ICU. Plan of care and goals reviewed with multidisciplinary/antibiotic stewardship team during rounds. I discussed the patient's findings and my recommendations with patient and nursing staff Time spent 32 min (exclusive of procedure time) including high complexity decision making to assess, manipulate, and support vital organ system failure in this individual who has impairment of one ormore vital organ systems such that there is a high probability of imminent or life threatening deterioration in the patient???s condition. Above documentation reviewed and reflect accurate information as of 08/21/2025 including copied elements of the note. James Tineo MD, [facility] Pulmonary, Critical care and Sleep Medicine * James Tineo MD - 08/20/2025 1:02 PM EST Images from the original note were not included. Intensive Care Follow-up Hospital: LOS: 1 day Mr. Valdez Grier, 89 y.o. male is followed for: GI bleed History of present illness: 89 y.o. male with hypertension, dyslipidemia, sick sinus syndrome status post pacer, atrial fibrillation, sleep apnea intolerant of CPAP, who was placed on Eliquis 1 week ago for atrial fibrillation.Over the last 2 days he has had multiple episodes of black tarry stools. He had a near syncopal episode at home and was brought to the emergency room. Initial hemoglobin was 6.8, and then dropped to 5.7. In February of this year his hemoglobin was 13. He received fluids, Kcentra and 2 units of packed cells has been ordered. He was having some rigors so CT of the chest and abdomen was done. He has no pneumonia, some gallstones without cholecystitis and an enlarged prostate. He did have a left upper lobe lung nodule. He denies fever. He denies abdominal pain or hematemesis. He does take a baby aspirin every day. He does not consume alcohol. He has a remote history of tobacco abuse. He denies a previous history of ulcer disease. Subjective Interval History: Overnight no acute events. No further episodes of bleeding. 2 units of PRBC given and hemoglobin improved above 7. Patient is hemodynamically stable. Plan is for endoscopy today. The patient's past medical, surgical and social history were reviewed and updated in [facility] as appropriate. Objective Infusions: [START ON 08/21/2025] lactated ringers, 9 mL/hr pantoprazole, 8 mg/hr, Last Rate: 8 mg/hr (08/20/25 1144) Medications: famotidine, 20 mg, Intravenous, Once famotidine, 20 mg, Oral, Once mupirocin, 1 Application, Each Nare, BID Vital Sign Min/Max for last 24 hours Temp Min: 97.4 ??F (36.3 ??C) Max: 98.6 ??F (37 ??C) BP Min: 78/51 Max: 160/71 Pulse Min: 73 Max: 102 Resp Min: 16 Max: 20 SpO2 Min: 95 % Max: 100 % Flow (L/min) (Oxygen Therapy) Min: 2 Max: 2 Input/Output for last 24 hour shift 08/19 0701 - 08/20 0700 In: 2589.9 [I.V.:786] Out: 700 [Urine:700] Objective: Vital signs: (most recent): Blood pressure 122/87, pulse 80, temperature 97.8 ??F (36.6 ??C), temperature source Oral, resp. rate 18, height 167.6 cm (66 ), weight 67.3 kg (148 lb 5.9 oz), SpO2 98%. General Appearance: Awake, alert, in no acute distress Lungs: B/L Breath sounds present with decreased breath sounds on bases, no wheezing heard, no crackles. Heart: S1 and S2 present, no murmur Abdomen: Soft, nontender, no guarding or rigidity, bowel sounds positive. Extremities: no edema, warm to touch. Neurologic: Moving all four extremities. Good strength bilaterally. Psychological: Normal affect, Cooperative Results from last 7 days Lab Units 08/20/25 1218 08/20/25 0735 08/20/25 0033 08/19/25 1814 08/19/25 1508 WBC 10*3/mm3 -- 6.49 5.88 -- 7.47 HEMOGLOBIN g/dL 7.8* 7.4* 6.8* < > 6.8* PLATELETS 10*3/mm3 -- 130* 137* -- 201 < > = values in this interval not displayed. Results from last 7 days Lab Units 08/20/25 0735 08/20/25 0033 08/19/25 1516 08/19/25 1508 SODIUM mmol/L 142 143 -- 141 POTASSIUM mmol/L 4.3 4.4 -- 5.4* CO2 mmol/L 19.5* 21.4* -- 20.1* BUN mg/dL 22.9 24.9* -- 27.2* CREATININE mg/dL 0.95 1.05 1.20 1.23 MAGNESIUM mg/dL 2.1 2.1 -- 2.3 PHOSPHORUS mg/dL 3.3 3.7 -- -- GLUCOSE mg/dL 87 98 -- 165* Estimated Creatinine Clearance: 52.1 mL/min (by C-G formula based on SCr of 0.95 mg/dL). Images: CT chest abdomen pelvis reviewed Impression: 1. Negative for aortic dissection. 2. No acute traumatic findings in the chest, abdomen, or pelvis. 3. Several groundglass pulmonary nodules largest 18 mm in the left upper lobe. These are nonspecific, correlation with any prior outside imaging recommended if available, otherwise consider 6-month follow-up. 4. Prostatomegaly, cholelithiasis and additional incidental findings above. Chronic findings above. Electronically Signed: Dion Rai MD 08/19/2025 4:24 PM EST ... I reviewed the patient's results and images. CT head reviewed CT Head Without Contrast Final result 08/19/2025 CT HEAD WO CONTRAST, CT CERVICAL SPINE WO CONTRAST Date of Exam: 08/19/2025 3:36 PM EST Indication: fall, head injury. Comparison: None available. Technique: Axial CT images were obtained of the head and cervical spine without contrast administration. Automated exposure control and iterative construction methods were used. ... Impression: HEAD: 1.No intracranial hemorrhage or acute intracranial abnormality. 2.Generalized cerebral atrophy with white matter findings of chronic microvascular disease. CERVICAL SPINE: 3.Negative for cervical spine fracture. 4.Multilevel cervical spondylosis above. Assessment & Plan Impression GI bleed Plan 1. Patient presented with severe symptomatic anemia resulting in syncopal episode and fall. No intracranial pathology noted otherwise. Symptomatically getting better after blood transfusion. Continueto monitor closely. Follow H&H every 6 hours. 2. Recent start of Eliquis and now presenting with black tarry stools suggesting upper GI source ofbleeding. Patient was given Kcentra and fluids as well as antibiotics. No indication to continue antibiotics at this point. Continue PPI infusion. GI team has been consulted and plan is for endoscopytoday. 3. Depending on endoscopy finding will need resumption of anticoagulation. 4. Mild thrombocytopenia likely consumptive thrombocytopenia. Will trend for now. 5. Patient has been on carvedilol at home. Will resume once hemodynamically more stable. 6. Underlying cognitive impairment and has been on donepezil. Will resume after endoscopy. 7. N.p.o. for now. Discussed plan of care with patient and nursing staff. Remains at risk of decline. continue close monitoring in ICU Plan of care and goals reviewed with multidisciplinary/antibiotic stewardship team during rounds. I discussed the patient's findings and my recommendations with patient and nursing staff Time spent 35 min (exclusive of procedure time) including high complexity decision making to assess, manipulate, and support vital organ system failure in this individual who has impairment of one ormore vital organ systems such that there is a high probability of imminent or life threatening deterioration in the patient???s condition. James Tineo MD, [facility] Pulmonary, Critical care and Sleep Medicine documented in this encounter H&P Notes * Nancy Vail MD - 08/19/2025 6:24 PM EST Images from the original note were not included. ICU ADMISSION NOTE Chief complaint Acute GI bleed Sick sinus syndrome status post pacemaker Atrial fibrillation on Eliquis Coronary artery disease with previous CABG Subjective Patient is a 89 y.o. male with hypertension, dyslipidemia, sick sinus syndrome status post pacer, atrial fibrillation, sleep apnea intolerant of CPAP, who was placed on Eliquis 1 week ago for atrial fibrillation. Over the last 2 days he has had multiple episodes of black tarry stools. He had a nearsyncopal episode at home and was brought to the emergency room. Initial hemoglobin was 6.8, and then dropped to 5.7. In February of this year his hemoglobin was 13. He received fluids, Kcentra and 2 units of packed cells has been ordered. He was having some rigors so CT of the chest and abdomen was done. He has no pneumonia, some gallstones without cholecystitis and an enlarged prostate. He did have a left upper lobe lung nodule. He denies fever. He denies abdominal pain or hematemesis. He does take a baby aspirin every day. He does not consume alcohol. He has a remote history of tobacco abuse. He denies a previous history of ulcer disease. Review of Systems Review of Systems Constitutional: Positive for activity change and chills. Negative for fever. HENT: Negative for congestion, sore throat and trouble swallowing. Eyes: Negative for visual disturbance. Respiratory: Negative for chest tightness, shortness of breath and wheezing. Cardiovascular: Positive for palpitations. Negative for chest pain and leg swelling. Gastrointestinal: Positive for nausea. Negative for abdominal pain and vomiting. Endocrine: Positive for cold intolerance. Genitourinary: Positive for difficulty urinating. Musculoskeletal: Positive for arthralgias. Skin: Negative for rash. Allergic/Immunologic: Negative for immunocompromised state. Neurological: Positive for light-headedness. Negative for headaches. Hematological: Bruises/bleeds easily. Psychiatric/Behavioral: Negative. Home Medications (Not in a hospital admission) Prior to Admission medications Medication Sig Start Date End Date Taking? Authorizing Provider alfuzosin (UROXATRAL) 10 MG 24 hr tablet Take 1 tablet by mouth Daily. 06/14/23 Citlali Bhandari MD apixaban (ELIQUIS) 5 MG tablet tablet Take 1 tablet by mouth 2 (Two) Times a Day. 08/13/25 Eliza Sandhu APRN aspirin 81 MG EC tablet Take 1 tablet by mouth Daily. Citlali Bhandari MD carvedilol (COREG) 25 MG tablet TAKE 1 AND 1/2 TABLETS TWICE DAILY 02/17/25 Anita Alvarenga MD donepezil (ARICEPT) 5 MG tablet TAKE ONE TABLET BY MOUTH EVERY DAY FOR memory loss 01/26/25 Citlali Bhandari MD Evolocumab (Repatha SureClick) solution auto-injector SureClick injection INJECT 140MG (1 PEN) SUBCUTANEOUSLY EVERY TWO WEEKS 11/09/24 Anita Alvarenga MD nitroglycerin (NITROSTAT) 0.[address] 1 tablet under the tongue Every 5 (Five) Minutes As Needed for Chest Pain. 03/19/23 Anita Alvarenga MD tamsulosin (FLOMAX) 0.4 MG capsule 24 hr capsule 12/28/24 Citlali Bhandari MD History Past Medical History: Diagnosis Date Anemia CAD (coronary artery disease) Hyperlipidemia Hypertension Mitral valve prolapse Pacemaker Sleep apnea ABH 9; intolerant to CPAP/BiPAP Past Surgical History: Procedure Laterality Date CAROTID STENT CORONARY ARTERY BYPASS GRAFT CYSTOSCOPY W/ LASER LITHOTRIPSY HERNIA REPAIR Family History Problem Relation Name Age of Onset Alzheimer's disease Mother Social History Tobacco Use Smoking status: Former Current packs/day: 1.00 Average packs/day: 1 pack/day for 20.0 years (20.0 ttl pk-yrs) Types: Cigarettes Passive exposure: Past Smokeless tobacco: Never Vaping Use Vaping status: Never Used Substance Use Topics Alcohol use: Never Drug use: Never (Not in a hospital admission) Allergies: Niacin, Penicillins, Pitavastatin, Pravastatin, Rosuvastatin, Simvastatin, Tetracycline,and Welchol [colesevelam] Objective Vital Signs Blood pressure 117/70, pulse 84, temperature 97.4 ??F (36.3 ??C), temperature source Oral, resp. rate 16, height 167.6 cm (66 ), weight 72.6 kg (160 lb), SpO2 100%. Physical Exam: General Appearance: Thin elderly gentleman on the stretcher covered in blankets Head: Alopecia Eyes: Conjunctiva pale Ears: Throat: No thrush Neck: Trachea midline Back: Lungs: Clear to auscultation Heart: Irregular rhythm, S1, S2 auscultated Abdomen: Nondistended, bowel sounds present, soft Rectal: Deferred Extremities: No pretibial edema Pulses: Palpable distal pulses though thready Skin: No rash Lymph nodes: Neurologic: Alert, speech fluent, face symmetric, country manager equal Results Review: Lab Results (last 24 hours) Procedure Component Value Units Date/Time Lactic Acid, Plasma [[id number]] (Abnormal) Collected: 08/19/25 1508 Specimen: Blood Updated: 08/19/25 1823 Lactate 3.5 mmol/L Comment: Falsely depressed results may occur on samples drawn from patients receiving N-Acetylcysteine (NAC) or Metamizole. Hemoglobin & Hematocrit, Blood [[id number]] Collected: 08/19/25 1814 Specimen: Blood Updated: 08/19/25 1819 Protime-INR [[id number]] (Abnormal) Collected: 08/19/25 1508 Specimen: Blood Updated: 08/19/25 1802 Protime 23.8 Seconds INR 1.98 Procalcitonin [[id number]] Collected: 08/19/25 1508 Specimen: Blood Updated: 08/19/25 1753 High Sensitivity Troponin T 1Hr [[id number]] (Abnormal) Collected: 08/19/25 1608 Specimen: Blood Updated: 08/19/25 1636 HS Troponin T 24 ng/L Troponin T Numeric Delta -1 ng/L Troponin T % Delta -4 Narrative: High Sensitive Troponin T Reference Range: <14.0 ng/L- Negative Female for AMI <22.0 ng/L- Negative Male for AMI >=14 - Abnormal Female indicating possible myocardial injury. >=22 - Abnormal Male indicating possible myocardial injury. Clinicians would have to utilize clinical acumen, EKG, Troponin, and serial changes to determine if it is an Acute Myocardial Infarctionor myocardial injury due to an underlying chronic condition. Comprehensive Metabolic Panel [[id number]] (Abnormal) Collected: 08/19/25 1508 Specimen: Blood Updated: 08/19/25 1543 Glucose 165 mg/dL BUN 27.2 mg/dL Creatinine 1.23 mg/dL Sodium 141 mmol/L Potassium 5.4 mmol/L Comment: Specimen hemolyzed. Result may be falsely elevated. Chloride 109 mmol/L CO2 20.1 mmol/L Calcium 9.1 mg/dL Total Protein 5.6 g/dL Albumin 3.8 g/dL ALT (SGPT) 9 U/L AST (SGOT) 20 U/L Comment: Specimen hemolyzed. Result may be falsely elevated. Alkaline Phosphatase 116 U/L Total Bilirubin 0.9 mg/dL Globulin 1.8 gm/dL Comment: Calculated Result A/G Ratio 2.1 g/dL BUN/Creatinine Ratio 22.1 Anion Gap 11.9 mmol/L eGFR 56.8 mL/min/1.73 Narrative: GFR Categories in Chronic Kidney Disease (CKD) GFR Category GFR (mL/min/1.73) Interpretation G1 90 or greater Normal or high (1) G2 60-89 Mild decrease (1) G3a 45-59 Mild to moderate decrease G3b 30-44 Moderate to severe decrease G4 15-29 Severe decrease G5 14 or less Kidney failure (1)In the absence of evidence of kidney disease, neither GFR category G1 or G2 fulfill the criteriafor CKD. eGFR calculation 2020 CKD-EPI creatinine equation, which does not include race as a factor Magnesium [[id number]] (Normal) Collected: 08/19/25 150 Specimen: Blood Updated: 08/19/25 154 Magnesium 2.3 mg/dL High Sensitivity Troponin T [[id number]] (Abnormal) Collected: 08/19/25 150 Specimen: Blood Updated: 08/19/25 154 HS Troponin T 25 ng/L Narrative: High Sensitive Troponin T Reference Range: <14.0 ng/L- Negative Female for AMI <22.0 ng/L- Negative Male for AMI >=14 - Abnormal Female indicating possible myocardial injury. >=22 - Abnormal Male indicating possible myocardial injury. Clinicians would have to utilize clinical acumen, EKG, Troponin, and serial changes to determine if it is an Acute Myocardial Infarctionor myocardial injury due to an underlying chronic condition. POC Creatinine [[id number]] (Normal) Collected: 08/19/25 1516 Specimen: Blood Updated: 08/19/25 153 Creatinine 1.20 mg/dL Comment: Serial Number: [id number] [place] Draw [[id number]] Collected: 08/19/25 150 Specimen: Blood Updated: 08/19/25 1531 Narrative: The following orders were created for panel order [place] Draw. Procedure Abnormality Status --------- ------ Green Top (Gel)[[id number]] Final result Lavender Top[[id number]] Final result Gold Top - SST[[id number]] Final result Hwang Top[[id number]] Final result Light Blue Top[[id number]] Final result Please view results for these tests on the individual orders. Green Top (Gel) [[id number]] Collected: 08/19/25 1508 Specimen: Blood Updated: 08/19/25 1531 Extra Tube Hold for add-ons. Comment: Auto resulted. Lavender Top [[id number]] Collected: 08/19/25 1508 Specimen: Blood Updated: 08/19/25 1531 Extra Tube hold for add-on Comment: Auto resulted Gold Top - SST [[id number]] Collected: 08/19/25 1508 Specimen: Blood Updated: 08/19/25 1531 Extra Tube Hold for add-ons. Comment: Auto resulted. Hwang Top [[id number]] Collected: 08/19/25 1508 Specimen: Blood Updated: 08/19/25 1531 Extra Tube Hold for add-ons. Comment: Auto resulted. Light Blue Top [[id number]] Collected: 08/19/25 1508 Specimen: Blood Updated: 08/19/25 1531 Extra Tube Hold for add-ons. Comment: Auto resulted CBC & Differential [[id number]] (Abnormal) Collected: 08/19/25 1508 Specimen: Blood Updated: 08/19/25 1526 Narrative: The following orders were created for panel order CBC & Differential. Procedure Abnormality Status --------- ------ CBC Auto Differential[[id number]] Abnormal Final result Please view results for these tests on the individual orders. CBC Auto Differential [[id number]] (Abnormal) Collected: 08/19/25 1508 Specimen: Blood Updated: 08/19/25 1526 WBC 7.47 10*3/mm3 RBC 2.54 10*6/mm3 Hemoglobin 6.8 g/dL Hematocrit 22.1 % MCV 87.0 fL MCH 26.8 pg MCHC 30.8 g/dL RDW 14.4 % RDW-SD 45.7 fl MPV 12.2 fL Platelets 201 10*3/mm3 Neutrophil % 79.4 % Lymphocyte % 9.9 % Monocyte % 10.0 % Eosinophil % 0.3 % Basophil % 0.1 % Immature Grans % 0.3 % Neutrophils, Absolute 5.93 10*3/mm3 Lymphocytes, Absolute 0.74 10*3/mm3 Monocytes, Absolute 0.75 10*3/mm3 Eosinophils, Absolute 0.02 10*3/mm3 Basophils, Absolute 0.01 10*3/mm3 Immature Grans, Absolute 0.02 10*3/mm3 nRBC 0.3 /100 WBC POC Glucose Once [[id number]] (Abnormal) Collected: 08/19/25 1519 Specimen: Blood Updated: 08/19/25 1521 Glucose 138 mg/dL Comment: Serial Number: [id number]: [id number] Angie Comment 1 Follow unit protocol Imaging Results (Last 24 Hours) Procedure Component Value Units Date/Time CT Angiogram Chest [[id number]] Collected: 08/19/25 1600 Updated: 08/19/25 1627 Narrative: CT ANGIOGRAM CHEST, CT ANGIOGRAM ABDOMEN PELVIS Date of Exam: 08/19/2025 3:28 PM EST Indication: Suspect Dissection. Comparison: None available. Technique: CTA of the chest was performed after the uneventful intravenous administration of iodinated contrast. Reconstructed coronal and sagittal images were also obtained. In addition, a 3-D volume rendered image was created for interpretation. Automated exposure control and iterative reconstruction methods were used. Findings: Chest: Initial noncontrast imaging demonstrates no aortic intramural hematoma. Hypodense cardiac blood pool compatible with anemia. Left-sided AICD noted. 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 Subsequently postcontrast images obtained. Normal opacification of the aortic arch without aortic dissection. Aortic arch branch vasculature patent. No pericardial or pleural effusion. Negative for mediastinal, hilar, or axillary adenopathy. No pulmonary embolus. Moderate atherosclerotic calcification of the aortic arch and descending thoracic aorta. Negative for pneumothorax. The trachea and mainstem bronchi are patent. No hemothorax. No consolidation or findings to indicate pneumonia. There are few scattered areas of groundglass opacity for example in the right upper lobe measuring 16 mm (5/39 and the right lower lobe measuring 9 mm (5/51). Gr oundglass area of nodularity in the left upper lobe measures 18 mm (5/22). No suspicious solid pulmonary nodule. Thoracic vertebral bodies are maintained in height. The posterior spinous processes are intact. No aggressive osseous lesion or acute fracture. Abdomen and pelvis: Initial noncontrast imaging of the abdomen and pelvis demonstrates no renal calculus or ureteral calculus. Pelvic calcifications compatible with phleboliths. Small calcified gallstones. Subsequently postcontrast images were obtained. Liver is normal in size and contour. Reflux of contrast to the hepatic veins likely related to right heart insufficiency. Normal caliber common bile duct. No pericholecystic inflammation. Normal spleen. Normal adrenal glands. No abnormality of the pancreas. There is a large exophytic cyst at the lateral aspect of the right kidney which measures up to 10 cm. Negative for hydronephrosis or hydroureter. Bladder unremarkable. Prostatomegaly with the prostate measuring 6 cm in transverse diameter. Negative for pneumoperitoneum. No bowel obstruction. Colonic diverticulosis without diverticulitis.No findings of appendicitis. Moderate atherosclerotic calcification of the abdominal aorta. The celiac artery is patent. The superior mesenteric artery is patent. Bilateral renal arteries are patent. Moderate atherosclerotic calcification of the proximal right renal artery. The inferior mesenteric artery is patent. Negative for abdominal aortic aneurysm or dissection. The bilateral common and external iliac arteries are patent. Left and right internal iliac branches are diminutive., Femoral arteries patent bilaterally. Visualized proximal portions of the superficial femoral and deep profunda femoral arteries are patent. The lumbar vertebral bodies are maintained in height. No aggressive osseous lesion or acute fracture. The posterior spinous processes are intact. The transverse spinous processes are intact. Moderatebilateral hip osteoarthritis. No pelvic fracture. Impression: Impression: 1. Negative for aortic dissection. 2. No acute traumatic findings in the chest, abdomen, or pelvis. 3. Several groundglass pulmonary nodules largest 18 mm in the left upper lobe. These are nonspecific, correlation with any prior outside imaging recommended if available, otherwise consider 6-month follow-up. 4. Prostatomegaly, cholelithiasis and additional incidental findings above. Chronic findings above. Electronically Signed: Dion Rai MD 08/19/2025 4:24 PM EST Workstation ID: [id number] CT Angiogram Abdomen Pelvis [[id number]] Collected: 08/19/25 1600 Updated: 08/19/25 162 Narrative: CT ANGIOGRAM CHEST, CT ANGIOGRAM ABDOMEN PELVIS Date of Exam: 08/19/2025 3:28 PM EST Indication: Suspect Dissection. Comparison: None available. Technique: CTA of the chest was performed after the uneventful intravenous administration of iodinated contrast. Reconstructed coronal and sagittal images were also obtained. In addition, a 3-D volume rendered image was created for interpretation. Automated exposure control and iterative reconstruction methods were used. Findings: Chest: Initial noncontrast imaging demonstrates no aortic intramural hematoma. Hypodense cardiac blood pool compatible with anemia. Left-sided AICD noted. 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 Subsequently postcontrast images obtained. Normal opacification of the aortic arch without aortic dissection. Aortic arch branch vasculature patent. No pericardial or pleural effusion. Negative for mediastinal, hilar, or axillary adenopathy. No pulmonary embolus. Moderate atherosclerotic calcification of the aortic arch and descending thoracic aorta. Negative for pneumothorax. The trachea and mainstem bronchi are patent. No hemothorax. No consolidation or findings to indicate pneumonia. There are few scattered areas of groundglass opacity for example in the right upper lobe measuring 16 mm (5/39 and the right lower lobe measuring 9 mm (5/51). Gr oundglass area of nodularity in the left upper lobe measures 18 mm (5/22). No suspicious solid pulmonary nodule. Thoracic vertebral bodies are maintained in height. The posterior spinous processes are intact. No aggressive osseous lesion or acute fracture. Abdomen and pelvis: Initial noncontrast imaging of the abdomen and pelvis demonstrates no renal calculus or ureteral calculus. Pelvic calcifications compatible with phleboliths. Small calcified gallstones. Subsequently postcontrast images were obtained. Liver is normal in size and contour. Reflux of contrast to the hepatic veins likely related to right heart insufficiency. Normal caliber common bile duct. No pericholecystic inflammation. Normal spleen. Normal adrenal glands. No abnormality of the pancreas. There is a large exophytic cyst at the lateral aspect of the right kidney which measures up to 10 cm. Negative for hydronephrosis or hydroureter. Bladder unremarkable. Prostatomegaly with the prostate measuring 6 cm in transverse diameter. Negative for pneumoperitoneum. No bowel obstruction. Colonic diverticulosis without diverticulitis.No findings of appendicitis. Moderate atherosclerotic calcification of the abdominal aorta. The celiac artery is patent. The superior mesenteric artery is patent. Bilateral renal arteries are patent. Moderate atherosclerotic calcification of the proximal right renal artery. The inferior mesenteric artery is patent. Negative for abdominal aortic aneurysm or dissection. The bilateral common and external iliac arteries are patent. Left and right internal iliac branches are diminutive., Femoral arteries patent bilaterally. Visualized proximal portions of the superficial femoral and deep profunda femoral arteries are patent. The lumbar vertebral bodies are maintained in height. No aggressive osseous lesion or acute fracture. The posterior spinous processes are intact. The transverse spinous processes are intact. Moderatebilateral hip osteoarthritis. No pelvic fracture. Impression: Impression: 1. Negative for aortic dissection. 2. No acute traumatic findings in the chest, abdomen, or pelvis. 3. Several groundglass pulmonary nodules largest 18 mm in the left upper lobe. These are nonspecific, correlation with any prior outside imaging recommended if available, otherwise consider 6-month follow-up. 4. Prostatomegaly, cholelithiasis and additional incidental findings above. Chronic findings above. Electronically Signed: Dion Rai MD 08/19/2025 4:24 PM EST Workstation ID: [id number] CT Head Without Contrast [[id number]] Collected: 08/19/25 1549 Updated: 08/19/25 1603 Narrative: CT HEAD WO CONTRAST, CT CERVICAL SPINE WO CONTRAST Date of Exam: 08/19/2025 3:36 PM EST Indication: fall, head injury. Comparison: None available. Technique: Axial CT images were obtained of the head and cervical spine without contrast administration. Automated exposure control and iterative construction methods were used. Findings: Head: Generalized cerebral volume loss. Dilatation of the lateral ventricles most compatible with centralatrophy. Mild white matter findings suggesting chronic microvascular disease. No intraventricular hemorrhage. No abnormal extra-axial fluid collection. The posterior fossa is without acute abnormality. The globes are intact and symmetric. There is no retro-orbital abnormality. The mastoid air cellsare well-aerated. Negative for calvarial fracture. Visualized sinuses are clear. Cervical spine: Straightening of the cervical lordosis. Negative for acute fracture. Severe disc narrowing at C4-5,C5-6 and C6-7. Posterior spinous processes are intact. No locked or perched facet. The dens is intact. The occipital condyles are intact bilaterally. Lateral masses of C1 are normally aligned on C2. Small posterior disc osteophytes noted at C4-5, C5-6 and C6-7 contribute to mild canal stenosis. Uncovertebral spurring and facet contributes to moderate bilateral foraminal stenosis at C4-5, C5-6 and C6-7. The included lung apices are clear. No apical pneumothorax. Bilateral carotid bulb atherosclerotic calcifications. Noncontrast soft tissues of the neck are without acute abnormality. Impression: Impression: HEAD: 1.No intracranial hemorrhage or acute intracranial abnormality. 2.Generalized cerebral atrophy with white matter findings of chronic microvascular disease. CERVICAL SPINE: 3.Negative for cervical spine fracture. 4.Multilevel cervical spondylosis above. Electronically Signed: Dion Rai MD 08/19/2025 4:00 PM EST Workstation ID: [id number] CT Cervical Spine Without Contrast [[id number]] Collected: 08/19/25 1549 Updated: 08/19/25 1603 Narrative: CT HEAD WO CONTRAST, CT CERVICAL SPINE WO CONTRAST Date of Exam: 08/19/2025 3:36 PM EST Indication: fall, head injury. Comparison: None available. Technique: Axial CT images were obtained of the head and cervical spine without contrast administration. Automated exposure control and iterative construction methods were used. Findings: Head: Generalized cerebral volume loss. Dilatation of the lateral ventricles most compatible with centralatrophy. Mild white matter findings suggesting chronic microvascular disease. No intraventricular hemorrhage. No abnormal extra-axial fluid collection. The posterior fossa is without acute abnormality. The globes are intact and symmetric. There is no retro-orbital abnormality. The mastoid air cellsare well-aerated. Negative for calvarial fracture. Visualized sinuses are clear. Cervical spine: Straightening of the cervical lordosis. Negative for acute fracture. Severe disc narrowing at C4-5,C5-6 and C6-7. Posterior spinous processes are intact. No locked or perched facet. The dens is intact. The occipital condyles are intact bilaterally. Lateral masses of C1 are normally aligned on C2. Small posterior disc osteophytes noted at C4-5, C5-6 and C6-7 contribute to mild canal stenosis. Uncovertebral spurring and facet contributes to moderate bilateral foraminal stenosis at C4-5, C5-6 and C6-7. The included lung apices are clear. No apical pneumothorax. Bilateral carotid bulb atherosclerotic calcifications. Noncontrast soft tissues of the neck are without acute abnormality. Impression: Impression: HEAD: 1.No intracranial hemorrhage or acute intracranial abnormality. 2.Generalized cerebral atrophy with white matter findings of chronic microvascular disease. CERVICAL SPINE: 3.Negative for cervical spine fracture. 4.Multilevel cervical spondylosis above. Electronically Signed: Dion Rai MD 08/19/2025 4:00 PM EST Workstation ID: [id number] PROBLEM LIST Upper GI bleed Acute blood loss anemia Atrial fibrillation on Eliquis Coronary disease with previous CABG Assessment & Plan Chronically ill 89-year-old gentleman with coronary artery disease, hypertension, dyslipidemia, atrial fibrillation, sick sinus syndrome with pacemaker presenting with black tarry stools and syncope.Hemoglobin is now 5.7 after volume resuscitation. He received Kcentra, 1 L of fluid, Zosyn in the em ergency room. This is likely an upper GI source. Differential includes erosive esophagitis, peptic ulcer disease, gastritis. He had some chills in the emergency room but no fever. White count is normal. Imaging of his chest and abdomen was benign. He did receive a dose of Zosyn. I will monitor and if he becomes febrile will continue antibiotics. I am still waiting on a urinalysis Transfused 2 units of packed red cells H&H after transfusion and every 6 hours Continue transfusion for hemoglobin less than 7 Protonix drip GI consult Hold anticoagulation Hold antihypertensive medications Hold aspirin Patient has lost over half his blood volume and is hypotensive and at risk for hemorrhagic shock and in need of ongoing ICU monitoring and care I discussed the patients findings and my recommendations with patient, Nancy Goins. MD Genna 08/19/25 18:24 EST Time: Critical care 40 min Please note that portions of this note were completed with a voice recognition program. documented in this encounter Consult Notes * Yair Wagner MD - 08/20/2025 11:50 AM ESTAssociated Order(s): IP CONSULT TO GASTROENTEROLOGY [facility] [place] Gastroenterology Consult Referring Provider: No ref. provider found PCP: Danisha Nguyen APRN Reason for Consultation: melena Chief complaint: Melena History of present illness: Valdez Grier is a 89 y.o. male with history of sick sinus syndrome status post pacemaker, A-fib recently started on Eliquis a week ago (per admitting HPI, although patient reports he has been Eliquis longer than this) who presents with near syncopal episode at home along with melena. Patient reports he noticed black stools about a week ago. He denies any abdominal pain nausea or vomiting. He denies any heartburn or reflux. Outside of aspirin he denies any NSAID use. He denies any history of GIbleeding. He denies any previous upper endoscopy. He reports having a colonoscopy remotely and doesnot recall any significant findings. He denies any known family history of GI related cancers. He does not drink alcohol. CT angiogram chest abdomen pelvis obtained on presentation with ground glass area nodularity left upper lobe, few scattered areas of ground glass opacity in the right upper lobe, normal size liver with normal contour, noted reflux of contrast into hepatic veins likely related to right heart insufficiency, colonic diverticulosis without diverticulitis, moderate atherosclerotic calcification of the abdominal aorta, patent celiac and superior mesenteric artery as well as inferior mesenteric artery. He was hypotensive on presentation and required admission to the ICU. He is not on pressors this morning. He received 2 units of blood for hemoglobin of 5.9 with posttransfusion hemoglobin 7.4 this morning. He also received Kcentra on presentation. Allergies: Niacin, Penicillins, Pitavastatin, Pravastatin, Rosuvastatin, Simvastatin, Tetracycline, and Welchol [colesevelam] Scheduled Meds: famotidine, 20 mg, Intravenous, Once famotidine, 20 mg, Oral, Once mupirocin, 1 Application, Each Nare, BID Infusions: [START ON 08/21/2025] lactated ringers, 9 mL/hr pantoprazole, 8 mg/hr, Last Rate: 8 mg/hr (08/20/25 1144) PRN Meds: acetaminophen OR acetaminophen albuterol senna-docusate sodium AND polyethylene glycol AND bisacodyl AND bisacodyl Calcium Replacement - Follow Nurse / BPA Driven Protocol lidocaine PF 1% Magnesium Standard Dose Replacement - Follow Nurse / BPA Driven Protocol midazolam nitroglycerin ondansetron Phosphorus Replacement - Follow Nurse / BPA Driven Protocol Potassium Replacement - Follow Nurse / BPA Driven Protocol sodium chloride Home Meds: Medications Prior to Admission Medication Sig Dispense Refill Last Dose/Taking alfuzosin (UROXATRAL) 10 MG 24 hr tablet Take 1 tablet by mouth Daily. apixaban (ELIQUIS) 5 MG tablet tablet Take 1 tablet by mouth 2 (Two) Times a Day. 180 tablet 3 aspirin 81 MG EC tablet Take 1 tablet by mouth Daily. carvedilol (COREG) 25 MG tablet TAKE 1 AND 1/2 TABLETS TWICE DAILY 270 tablet 3 donepezil (ARICEPT) 5 MG tablet TAKE ONE TABLET BY MOUTH EVERY DAY FOR memory loss Evolocumab (Repatha SureClick) solution auto-injector SureClick injection INJECT 140MG (1 PEN) SUBCUTANEOUSLY EVERY TWO WEEKS 2 mL 11 nitroglycerin (NITROSTAT) 0.[address] 1 tablet under the tongue Every 5 (Five) Minutes As Needed for Chest Pain. 30 tablet 5 tamsulosin (FLOMAX) 0.4 MG capsule 24 hr capsule ROS: Review of Systems Constitutional: Negative for chills and fever. Respiratory: Negative for cough and shortness of breath. Gastrointestinal: Positive for blood in stool. Negative for abdominal distention, abdominal pain, nausea and vomiting. Skin: Negative for color change and rash. All other systems reviewed and are negative. PAST MED HX: Past Medical History: Diagnosis Date Anemia CAD (coronary artery disease) Hyperlipidemia Hypertension Mitral valve prolapse Pacemaker Sleep apnea ABH 9; intolerant to CPAP/BiPAP PAST SURG HX: Past Surgical History: Procedure Laterality Date CAROTID STENT CORONARY ARTERY BYPASS GRAFT CYSTOSCOPY W/ LASER LITHOTRIPSY HERNIA REPAIR FAM HX: Family History Problem Relation Name Age of Onset Alzheimer's disease Mother SOC HX: Social History Socioeconomic History Marital status: Tobacco Use Smoking status: Former Current packs/day: 1.00 Average packs/day: 1 pack/day for 20.0 years (20.0 ttl pk-yrs) Types: Cigarettes Passive exposure: Past Smokeless tobacco: Never Vaping Use Vaping status: Never Used Substance and Sexual Activity Alcohol use: Never Drug use: Never Sexual activity: Defer PHYSICAL EXAM BP 141/89 Pulse 85 Temp 97.8 ??F (36.6 ??C) (Oral) Resp 18 Ht 167.6 cm (66 ) Wt 67.3 kg (148 lb 5.9 oz) SpO2 98% BMI 23.95 kg/m?? Wt Readings from Last 3 Encounters: 08/20/25 67.3 kg (148 lb 5.9 oz) 07/27/25 66.2 kg (146 lb) 03/08/25 70.8 kg (156 lb) ,body mass index is 23.95 kg/m??. Physical Exam General: Patient awake, alert and cooperative Eyes: Normal lids and lashes, no scleral icterus Neck: Supple, normal ROM Skin: Warm and dry, not jaundiced Cardiovascular: Regular rate, well-perfused extremities Pulm: Equal expansion bilaterally, no increased WOB Abdomen: Soft, nontender, nondistended; Extremities: No rash or edema Neuro: A&O to person and situation Psychiatric: Normal mood and behavior; Results Review: I reviewed the patient's new clinical results. Lab Results Component Value Date WBC 6.49 08/20/2025 HGB 7.4 (L) 08/20/2025 HGB 6.8 (C) 08/20/2025 HGB 5.9 (C) 08/19/2025 HCT 23.3 (L) 08/20/2025 MCV 88.3 08/20/2025 PLT 130 (L) 08/20/2025 Lab Results Component Value Date INR 1.98 (H) 08/19/2025 Lab Results Component Value Date GLUCOSE 87 08/20/2025 BUN 22.9 08/20/2025 CREATININE 0.95 08/20/2025 BCR 24.1 08/20/2025 NA 142 08/20/2025 K 4.3 08/20/2025 CO2 19.5 (L) 08/20/2025 CALCIUM 8.8 08/20/2025 ALBUMIN 3.6 08/20/2025 ALKPHOS 86 08/20/2025 BILITOT 2.1 (H) 08/20/2025 ALT 8 08/20/2025 AST 16 08/20/2025 Impression: Impression: 1. Negative for aortic dissection. 2. No acute traumatic findings in the chest, abdomen, or pelvis. 3. Several groundglass pulmonary nodules largest 18 mm in the left upper lobe. These are nonspecific, correlation with any prior outside imaging recommended if available, otherwise consider 6-month follow-up. 4. Prostatomegaly, cholelithiasis and additional incidental findings above. Chronic findings above. ASSESSMENTS/PLANS Impression: Melena Near syncope Normocytic anemia, acute blood loss Mild thrombocytopenia CT image findings suggestive of right-sided heart insufficiency Sick sinus syndrome status post pacemaker A-fib on Eliquis Mildly Elevated Bilirubin (following transfusion) Plan: - Monitor H&H, transfuse keep hemoglobin above 7 unless cardiology feels a higher threshold of 8 is warranted - IV PPI drip - N.p.o. - Plan for EGD today I discussed the patient's findings and my recommendations with patient and nursing staff Yair Wagner MD 08/20/25 11:50 EST documented in this encounter Nursing Notes * Joe Vickers RN - 08/25/2025 5:31 AM EST Problem: Adult Inpatient Plan of Care Goal: Plan of Care Review Outcome: Progressing Goal: Patient-Specific Goal (Individualized) Outcome: Progressing Goal: Absence of Hospital-Acquired Illness or Injury Outcome: Progressing Intervention: Identify and Manage Fall Risk Recent Flowsheet Documentation Taken 08/25/2025 0400 by Joe Vickers RN Safety Promotion/Fall Prevention: activity supervised assistive device/personal items within reach clutter free environment maintained fall prevention program maintained nonskid shoes/slippers when out of bed safety round/check completed toileting scheduled Taken 08/25/2025 0000 by Joe Vickers RN Safety Promotion/Fall Prevention: activity supervised assistive device/personal items within reach clutter free environment maintained fall prevention program maintained nonskid shoes/slippers when out of bed safety round/check completed toileting scheduled room organization consistent Taken 08/24/2025 193 by Joe Vickers RN Safety Promotion/Fall Prevention: activity supervised assistive device/personal items within reach clutter free environment maintained fall prevention program maintained nonskid shoes/slippers when out of bed room organization consistent safety round/check completed Intervention: Prevent Skin Injury Recent Flowsheet Documentation Taken 08/25/2025 0400 by Joe Vickers RN Body Position: position changed independently Skin Protection: incontinence pads utilized protective footwear used silicone border foam - sacrum/coccyx Taken 08/25/2025 0000 by Joe Vickers RN Body Position: position changed independently Skin Protection: incontinence pads utilized protective footwear used Taken 08/24/2025 193 by Joe Vickers RN Body Position: position changed independently Skin Protection: incontinence pads utilized protective footwear used Intervention: Prevent and Manage VTE (Venous Thromboembolism) Risk Recent Flowsheet Documentation Taken 08/24/20251934 by Joe Vickers RN VTE Prevention/Management: SCDs (sequential compression devices) off Intervention: Prevent Infection Recent Flowsheet Documentation Taken 08/25/2025 0400 by Joe Vickers RN Infection Prevention: rest/sleep promoted environmental surveillance performed Taken 08/25/2025 0000 by Joe Vickers RN Infection Prevention: rest/sleep promoted environmental surveillance performed Taken 08/24/2025 193 by Joe Vickers RN Infection Prevention: environmental surveillance performed rest/sleep promoted Goal: Optimal Comfort and Wellbeing Outcome: Progressing Intervention: Provide Person-Centered Care Recent Flowsheet Documentation Taken 08/24/20251934 by Joe Vickers RN Trust Relationship/Rapport: care explained choices provided Goal: Readiness for Transition of Care Outcome: Progressing Problem: Skin Injury Risk Increased Goal: Skin Health and Integrity Outcome: Progressing Intervention: Optimize Skin Protection Recent Flowsheet Documentation Taken 08/25/2025 0400 by Joe Vickers RN Activity Management: activity encouraged Pressure Reduction Techniques: frequent weight shift encouraged positioned off wounds pressure points protected rest period provided between sit times Head of Bed (HOB) Positioning: HOB elevated Pressure Reduction Devices: heel offloading device utilized positioning supports utilized pressure-redistributing mattress utilized Skin Protection: incontinence pads utilized protective footwear used silicone border foam - sacrum/coccyx Taken 08/25/2025 0000 by Joe Vickers RN Activity Management: activity encouraged Pressure Reduction Techniques: frequent weight shift encouraged pressure points protected Head of Bed (HOB) Positioning: HOB elevated Pressure Reduction Devices: pressure-redistributing mattress utilized Skin Protection: incontinence pads utilized protective footwear used Taken 08/24/20251934 by Joe Vickers RN Activity Management: activity encouraged Pressure Reduction Techniques: frequent weight shift encouraged pressure points protected Head of Bed (HOB) Positioning: HOB elevated Pressure Reduction Devices: pressure-redistributing mattress utilized Skin Protection: incontinence pads utilized protective footwear used Problem: Fall Injury Risk Goal: Absence of Fall and Fall-Related Injury Outcome: Progressing Intervention: Identify and Manage Contributors Recent Flowsheet Documentation Taken 08/25/2025 0400 by Joe Vickers RN Self-Care Promotion: independence encouraged BADL personal objects within reach Taken 08/25/2025 0000 by Joe Vickers RN Self-Care Promotion: independence encouraged BADL personal objects within reach Taken 08/24/20251934 by Joe Vickers RN Self-Care Promotion: independence encouraged BADL personal objects within reach Intervention: Promote Injury-Free Environment Recent Flowsheet Documentation Taken 08/25/2025 0400 by Joe Vickers RN Safety Promotion/Fall Prevention: activity supervised assistive device/personal items within reach clutter free environment maintained fall prevention program maintained nonskid shoes/slippers when out of bed safety round/check completed toileting scheduled Taken 08/25/2025 0000 by Joe Vickers RN Safety Promotion/Fall Prevention: activity supervised assistive device/personal items within reach clutter free environment maintained fall prevention program maintained nonskid shoes/slippers when out of bed safety round/check completed toileting scheduled room organization consistent Taken 08/24/20251934 by Joe Vickers RN Safety Promotion/Fall Prevention: activity supervised assistive device/personal items within reach clutter free environment maintained fall prevention program maintained nonskid shoes/slippers when out of bed room organization consistent safety round/check completed Problem: Self-Care Deficit Goal: Improved Ability to Complete Activities of Daily Living Outcome: Progressing Intervention: Promote Activity and Functional [place] Recent Flowsheet Documentation Taken 08/25/2025 0400 by Joe Vickers RN Activity Assistance Provided: assistance, 1 person Self-Care Promotion: independence encouraged BADL personal objects within reach Taken 08/25/2025 0000 by Joe Vickers RN Activity Assistance Provided: assistance, 1 person Self-Care Promotion: independence encouraged BADL personal objects within reach Taken 08/24/20251934 by Joe Vickers RN Activity Assistance Provided: assistance, 1 person Self-Care Promotion: independence encouraged BADL personal objects within reach Problem: Dementia Signs/Symptoms Goal: Improved Behavioral Control (Dementia Signs/Symptoms) Outcome: Progressing Intervention: Manage Behavior Recent Flowsheet Documentation Taken 08/24/20251934 by Joe Vickers RN Environmental Support: calm environment promoted Goal: Optimized Cognitive Function (Dementia Signs/Symptoms) Outcome: Progressing Goal: Optimized Oral Intake (Dementia Signs/Symptoms) Outcome: Progressing Goal: Improved Sleep (Dementia Signs/Symptoms) Outcome: Progressing Goal: Enhanced Social or Functional Skills and Ability (Dementia Signs/Symptoms) Outcome: Progressing Intervention: Promote Social and Functional Ability Recent Flowsheet Documentation Taken 08/24/20251934 by Joe Vickers RN Trust Relationship/Rapport: care explained choices provided Goal Outcome Evaluation: * Phillip Ordonez, PT - 08/24/2025 10:55 AM EST Goal Outcome Evaluation: Plan of Care Reviewed With: patient Progress: no change Outcome Evaluation: PT initial eval completed. Pt amb 250' with RW and 50' without AD. pt present below baseline with deficits in endurance and strength. Further IPPT warranted to progress pt towardsbaseline. PT rec d/c home with HHPT for improvement back to baseline Anticipated Discharge Disposition (PT): home with home health * Heydi Montano RN - 08/23/2025 5:58 PM EST Goal Outcome Evaluation: Plan of Care Reviewed With: patient Progress: improving Outcome Evaluation: Hgb remains greater than 7. A&Ox2-4 this shift. AFib/ paced on tele with controlled rates. Bowel regimen given. No s/s of bleeding. Transfer to telemetry, report given to Cece SOTO. * Chaitanya Bourgeois RN - 08/23/2025 6:06 AM EST Problem: Adult Inpatient Plan of Care Goal: Plan of Care Review Outcome: Progressing Flowsheets (Taken 08/23/2025 0605) Progress: improving Outcome Evaluation: Pt on RA. A&Ox1-3 throughout shift. Remains Afib/paced on tele. Continues to experience HR: 90s-110s w/ nonsustained HR: 120s-140s. PRN melatonin given, rested well during night. UOP: 475. No BM during shift. Plan of Care Reviewed With: patient * Heydi Montano RN - 08/22/2025 6:01 PM EST Goal Outcome Evaluation: Plan of Care Reviewed With: patient Progress: improving Outcome Evaluation: Afib/paced on tele, HR 90-100s with nonsustained HR 120- 130s, home coreg restarted this evening. Diet advanced, tolerating well. Bowel regimen started. H&H stable.Patient moslty A&Ox4, some intermittent confusion to place and situation. Potassium replaced, 4.8 when rechecked. Ambulated in murillo with minimal assist. * Yari Cardenas RN - 08/22/2025 6:16 AM EST Goal Outcome Evaluation: Progress: no change Outcome Evaluation: Pt continues to be in Afib with paced and paused beats. H&H currenlty stable and no signs of bleeding. * Heydi Montano RN - 08/21/2025 6:42 PM EST Goal Outcome Evaluation: Plan of Care Reviewed With: patient Progress: no change H&H stable, no s/s of bleeding, no bm or reported abdominal discomfort. A&Ox4 throughout the day. BP stable. Afib/paced rhythm on tele. Back pain relieved with heating pad. * Rosario Murillo RN - 08/20/2025 5:03 AM EST Goal Outcome Evaluation: Plan of Care Reviewed With: patient Outcome Evaluation: VSS overnight, pt received 2 units PRBC, continues to be in Afib with pauses and paced beats. No bowel movement overnight or signs of bleeding noted.. Awaiting AM H&H post transfusion. documented in this encounter ED Notes * Dainel Mackey MD - 08/19/2025 2:51 PM EST Images from the original note were not included. [facility] Pt Name: Valdez Grier Birthdate: 1935 Date of evaluation: 08/19/2025 Provider: Daniel Mackey MD CHIEF COMPLAINT Chief Complaint Patient presents with Syncope HISTORY OF PRESENT ILLNESS History of Present Illness The patient is an 89-year-old male who presents after a syncopal episode that occurred just prior to arrival. He reports that he was ambulating when he experienced lightheadedness, prompting him to sit down marlo chair where he subsequently lost consciousness for a brief period. This episode was witnessed, and there were no reports of any convulsive activity or falls. He does not report any preceding symptoms such as chest pain or discomfort, respiratory distress, abdominal pain, headache, visual disturban therese, peripheral weakness or numbness, or difficulty with speech or swallowing. He currently feels back to his baseline health status. He has a known history of coronary artery disease and is equipped with a pacemaker. He is also on anticoagulation therapy with Eliquis. He has been experiencing persistent sharp back pain localized between his shoulder blades for several months, but notes no change in the intensity of this pain today. Nursing notes were reviewed. REVIEW OF SYSTEMS ROS: A chief complaint appropriate review of systems was completed and is negative except as noted in the HPI. PAST MEDICAL HISTORY Past Medical History: Diagnosis Date Anemia CAD (coronary artery disease) Hyperlipidemia Hypertension Mitral valve prolapse Pacemaker Sleep apnea ABH 9; intolerant to CPAP/BiPAP SURGICAL HISTORY Past Surgical History: Procedure Laterality Date CAROTID STENT CORONARY ARTERY BYPASS GRAFT CYSTOSCOPY W/ LASER LITHOTRIPSY HERNIA REPAIR CURRENT MEDICATIONS Current Facility-Administered Medications: albumin human 5 % solution 500 mL, 500 mL, Intravenous, Once, Nancy Vail MD pantoprazole (PROTONIX) injection 40 mg, 40 mg, Intravenous, Once AND pantoprazole (PROTONIX) 40 mg in sodium chloride 0.9 % 100 mL (0.4 mg/mL) MBP, 8 mg/hr, Intravenous, Continuous, Nancy Vail MD piperacillin-tazobactam (ZOSYN) 3.375 g IVPB in 100 mL NS MBP (CD), 3.375 g, Intravenous, Once, Daniel Mackey MD, 3.375 g at 08/19/25 1810 sodium chloride 0.9 % flush 10 mL, 10 mL, Intravenous, PRN, Daniel Mackey MD sodium chloride 0.9 % flush 10 mL, 10 mL, Intravenous, PRN, Nancy Vail MD Current Outpatient Medications: alfuzosin (UROXATRAL) 10 MG 24 hr tablet, Take 1 tablet by mouth Daily., Disp: , Rfl: apixaban (ELIQUIS) 5 MG tablet tablet, Take 1 tablet by mouth 2 (Two) Times a Day., Disp: 180 tablet, Rfl: 3 aspirin 81 MG EC [...] 24 hr capsule, , Disp: , Rfl: ALLERGIES Niacin, Penicillins, Pitavastatin, Pravastatin, Rosuvastatin, Simvastatin, Tetracycline, and Welchol [colesevelam] FAMILY HISTORY Family History Problem Relation Name Age of Onset Alzheimer's disease Mother SOCIAL HISTORY Social History Socioeconomic History Marital status: Tobacco Use Smoking status: Former Current packs/day: 1.00 Average packs/day: 1 pack/day for 20.0 years (20.0 ttl pk-yrs) Types: Cigarettes Passive exposure: Past Smokeless tobacco: Never Vaping Use Vaping status: Never Used Substance and Sexual Activity Alcohol use: Never Drug use: Never Sexual activity: Defer PHYSICAL EXAM (up to 7 for level 4, 8 or more for level 5) Vitals: 08/19/25 1630 08/19/25 1700 08/19/25 1730 08/19/25 1800 BP: 102/81 (!) 78/51 103/56 117/70 BP Location: Patient Position: Pulse: 86 74 78 84 Resp: Temp: TempSrc: SpO2: 100% 100% 98% 100% Weight: Height: Neurological: Patient is normocephalic and atraumatic. Pupils are equal and reactive. Full range ofextraocular movements is maintained. Cranial nerves are grossly intact. Strength is 5 out of 5 in all four extremities with intact sensation throughout. HEENT: Normocephalic and atraumatic. Pupils are equal and reactive. Full range of extraocular movements is maintained. Cardiovascular: Heart rate and rhythm are regular with no appreciable murmur. Respiratory: Lungs are clear to auscultation bilaterally with no focal lung findings. Gastrointestinal: Abdomen is soft and nontender without any distention. Musculoskeletal: Neck is supple with no midline cervical spinal tenderness. Back, including midline, thoracic, and lumbar spine, is nontender. DIAGNOSTIC RESULTS EKG: All EKGs are interpreted by the Emergency Department Physician who either signs or Co-signs this chart in the absence of a outside residential sales professional. ECG 12 Lead Syncope Preliminary Result Test Reason : Syncope Blood Pressure : */* mmHG Vent. Rate : 89 BPM Atrial Rate : 227 BPM P-R Int : * ms QRS Dur : 80 ms QT Int : 382 ms P-R-T Axes : * 52 244 degrees QTcB Int : 464 ms Suspect unspecified pacemaker failure Atrial fibrillation with occasional ventricular-paced complexes ST & T wave abnormality, consider inferior ischemia ST & T wave abnormality, consider anterolateral ischemia Prolonged QT Abnormal ECG When compared with ECG of 19-Aug-2025 15:01, (Unconfirmed) Vent. rate has increased by 3 bpm Referred By: ED Confirmed By: ECG 12 Lead Syncope Preliminary Result Test Reason : Syncope Blood Pressure : */* mmHG Vent. Rate : 86 BPM Atrial Rate : 75 BPM P-R Int : * ms QRS Dur : 76 ms QT Int : 380 ms P-R-T Axes : * 21 250 degrees QTcB Int : 454 ms Atrial fibrillation with occasional ventricular-paced complexes ST & T wave abnormality, consider inferior ischemia ST & T wave abnormality, consider anterolateral ischemia Abnormal ECG No previous ECGs available Referred By: ED Confirmed By: Telemetry Scan Final Result RADIOLOGY: [x] Radiologist's Report Reviewed: CT Angiogram Chest Final Result Impression: 1. Negative for aortic dissection. 2. No acute traumatic findings in the chest, abdomen, or pelvis. 3. Several groundglass pulmonary nodules largest 18 mm in the left upper lobe. These are nonspecific, correlation with any prior outside imaging recommended if available, otherwise consider 6-month follow-up. 4. Prostatomegaly, cholelithiasis and additional incidental findings above. Chronic findings above. Electronically Signed: Dion Rai MD 08/19/2025 4:24 PM EST Workstation ID: [id number] CT Angiogram Abdomen Pelvis Final Result Impression: 1. Negative for aortic dissection. 2. No acute traumatic findings in the chest, abdomen, or pelvis. 3. Several groundglass pulmonary nodules largest 18 mm in the left upper lobe. These are nonspecific, correlation with any prior outside imaging recommended if available, otherwise consider 6-month follow-up. 4. Prostatomegaly, cholelithiasis and additional incidental findings above. Chronic findings above. Electronically Signed: Dion Rai MD 08/19/2025 4:24 PM EST Workstation ID: [id number] CT Head Without Contrast Final Result Impression: HEAD: 1.No intracranial hemorrhage or acute intracranial abnormality. 2.Generalized cerebral atrophy with white matter findings of chronic microvascular disease. CERVICAL SPINE: 3.Negative for cervical spine fracture. 4.Multilevel cervical spondylosis above. Electronically Signed: Dion Rai MD 08/19/2025 4:00 PM EST Workstation ID: [id number] CT Cervical Spine Without Contrast Final Result Impression: HEAD: 1.No intracranial hemorrhage or acute intracranial abnormality. 2.Generalized cerebral atrophy with white matter findings of chronic microvascular disease. CERVICAL SPINE: 3.Negative for cervical spine fracture. 4.Multilevel cervical spondylosis above. Electronically Signed: Dion Rai MD 08/19/2025 4:00 PM EST Workstation ID: [id number] I ordered and independently reviewed the above noted radiographic studies. LABS: I have reviewed and interpreted all of the currently available lab results from this visit (if applicable): Results for orders placed or performed during the hospital encounter of 08/19/25 ECG 12 Lead Syncope Collection Time: 08/19/25 3:01 PM Result Value Ref Range QT Interval 380 ms QTC Interval 454 ms Comprehensive Metabolic Panel Collection Time: 08/19/25 3:08 PM Specimen: Blood Result Value Ref Range Glucose 165 (H) 65 - 99 mg/dL BUN 27.2 (H) 8.0 - 23.0 mg/dL Creatinine 1.23 0.76 - 1.27 mg/dL Sodium 141 136 - 145 mmol/L Potassium 5.4 (H) 3.5 - 5.2 mmol/L Chloride 109 (H) 98 - 107 mmol/L CO2 20.1 (L) 22.0 - 29.0 mmol/L Calcium 9.1 8.6 - 10.5 mg/dL Total Protein 5.6 (L) 6.0 - 8.5 g/dL Albumin 3.8 3.5 - 5.2 g/dL ALT (SGPT) 9 1 - 41 U/L AST (SGOT) 20 1 - 40 U/L Alkaline Phosphatase 116 39 - 117 U/L Total Bilirubin 0.9 0.0 - 1.2 mg/dL Globulin 1.8 gm/dL A/G Ratio 2.1 g/dL BUN/Creatinine Ratio 22.1 7.0 - 25.0 Anion Gap 11.9 5.0 - 15.0 mmol/L eGFR 56.8 (L) >60.0 mL/min/1.73 Magnesium Collection Time: 08/19/25 3:08 PM Specimen: Blood Result Value Ref Range Magnesium 2.3 1.6 - 2.4 mg/dL High Sensitivity Troponin T Collection Time: 08/19/25 3:08 PM Specimen: Blood Result Value Ref Range HS Troponin T 25 (H) <22 ng/L CBC Auto Differential Collection Time: 08/19/25 3:08 PM Specimen: Blood Result Value Ref Range WBC 7.47 3.40 - 10.80 10*3/mm3 RBC 2.54 (L) 4.14 - 5.80 10*6/mm3 Hemoglobin 6.8 (C) 13.0 - 17.7 g/dL Hematocrit 22.1 (L) 37.5 - 51.0 % MCV 87.0 79.0 - 97.0 fL MCH 26.8 26.6 - 33.0 pg MCHC 30.8 (L) 31.5 - 35.7 g/dL RDW 14.4 12.3 - 15.4 % RDW-SD 45.7 37.0 - 54.0 fl MPV 12.2 (H) 6.0 - 12.0 fL Platelets 201 140 - 450 10*3/mm3 Neutrophil % 79.4 (H) 42.7 - 76.0 % Lymphocyte % 9.9 (L) 19.6 - 45.3 % Monocyte % 10.0 5.0 - 12.0 % Eosinophil % 0.3 0.3 - 6.2 % Basophil % 0.1 0.0 - 1.5 % Immature Grans % 0.3 0.0 - 0.5 % Neutrophils, Absolute 5.93 1.70 - 7.00 10*3/mm3 Lymphocytes, Absolute 0.74 0.70 - 3.10 10*3/mm3 Monocytes, Absolute 0.75 0.10 - 0.90 10*3/mm3 Eosinophils, Absolute 0.02 0.00 - 0.40 10*3/mm3 Basophils, Absolute 0.01 0.00 - 0.20 10*3/mm3 Immature Grans, Absolute 0.02 0.00 - 0.05 10*3/mm3 nRBC 0.3 (H) 0.0 - 0.2 /100 WBC Protime-INR Collection Time: 08/19/25 3:08 PM Specimen: Blood Result Value Ref Range Protime 23.8 (H) 12.2 - 15.3 Seconds INR 1.98 (H) 0.89 - 1.12 Green Top (Gel) Collection Time: 08/19/25 3:08 PM Result Value Ref Range Extra Tube Hold for add-ons. Lavender Top Collection Time: 08/19/25 3:08 PM Result Value Ref Range Extra Tube hold for add-on Gold Top - SST Collection Time: 08/19/25 3:08 PM Result Value Ref Range Extra Tube Hold for add-ons. Hwang Top Collection Time: 08/19/25 3:08 PM Result Value Ref Range Extra Tube Hold for add-ons. Light Blue Top Collection Time: 08/19/25 3:08 PM Result Value Ref Range Extra Tube Hold for add-ons. POC Creatinine Collection Time: 08/19/25 3:16 PM Specimen: Blood Result Value Ref Range Creatinine 1.20 0.60 - 1.30 mg/dL POC Glucose Once Collection Time: 08/19/25 3:19 PM Specimen: Blood Result Value Ref Range Glucose 138 (H) 70 - 130 mg/dL Nova Comment 1 Follow unit protocol Type & Screen Collection Time: 08/19/25 4:00 PM Specimen: Blood Result Value Ref Range ABO Type A RH type Negative Antibody Screen Negative T&S Expiration Date 08/22/2025 11:59:59 PM High Sensitivity Troponin T 1Hr Collection Time: 08/19/25 4:08 PM Specimen: Blood Result Value Ref Range HS Troponin T 24 (H) <22 ng/L Troponin T Numeric Delta -1 ng/L Troponin T % Delta -4 Abnormal if >/= 20% ECG 12 Lead Syncope Collection Time: 08/19/25 4:09 PM Result Value Ref Range QT Interval 382 ms QTC Interval 464 ms ABO RH Specimen Verification Collection Time: 08/19/25 5:17 PM Specimen: Blood Result Value Ref Range ABO Type A RH type Negative Prepare RBC, 2 Units Collection Time: 08/19/25 5:42 PM Result Value Ref Range Product Code Y3976P79 Unit Number [id number] UNIT ABO A UNIT RH NEG Crossmatch Interpretation Compatible Dispense Status XM Blood Expiration Date Blood Type Barcode 0600 Product Code I0588B06 Unit Number [id number] UNIT ABO A UNIT RH NEG Crossmatch Interpretation Compatible Dispense Status XM Blood Expiration Date Blood Type Barcode 0600 If labs were ordered, I independently reviewed the results and considered them in treating the patient. EMERGENCY DEPARTMENT COURSE and DIFFERENTIAL DIAGNOSIS/MDM: Vitals: OF 18:21 EST BP - 117/70 HR - 84 TEMP - 97.4 ??F (36.3 ??C) (Oral) O2 SATS - 100% Discussion below represents my analysis of pertinent findings related to patient's condition, differential diagnosis, treatment plan and final disposition. Differential diagnosis: The differential diagnosis associated with the patient's presentation includes: Gastritis, PUD, ACS, dysrhythmia, anemia, pneumonia, pneumothorax, bacteremia, UTI, pneumonia Independent interpretations (ECG/rhythm strip/X-ray/US/CT scan): I independently interpreted the patient's head CT and CTA chest. There is no evidence of pulmonary embolism or dissection, no evidenceof ICA ED Course: ED Course as of 08/19/251820 [facility] Aug 19, 2025 1530 The last hemoglobin value I can find for this patient in our system was from 2021 and was 14. [NS] 1818 This patient presented with syncope, black stools over the course the past several days, hypotension in the ED, significant anemia. Suspect upper GI source. Given his hypotension, provided 1 L of fluids, have ordered blood transfusion, also ordered emergent reversal of Eliquis with Kcentra. During the course of patient's ED stay, he developed rigors with intense shaking but no fever or leukocytosis. I empirically collected blood cultures on him as well, again given his hypotension associated with this, and empirically ordered Zosyn. CT head, chest, abdomen/pelvis demonstrate no acute pathology. Patient is being admitted to the ICU for further management. [NS] ED Course User Index [NS] Daniel Mackey MD CRITICAL CARE TIME Approximately 75 minutes of discontinuous critical care time was provided to this patient by myselfabsent of any time spent performing procedures. Patient presents critically ill with acute GI bleeding with hypotension in the setting of underlying anticoagulation on Eliquis with a history of significant cardiac disease placing the cardiovascular, respiratory, neurologic, renal systems at risk requiring the following interventions: IV fluids, blood transfusion, emergent reversal of Eliquis withKcentra, interpretation of lab/ECG/imaging, frequent reassessment, coordination of ICU admission with the following response: Hemodynamic stabilization. Patient at high risk of deterioration and possibly without these interventions. FINAL IMPRESSION 1. Acute GI bleeding 2. Acute blood loss anemia 3. Hypotension, unspecified hypotension type 4. Anticoagulated DISPOSITION/PLAN ED Disposition ED Disposition Decision to Admit Condition -- Comment Level of Care: Critical Care [6] Admitting Physician: NANCY VAIL [[id number]] Attending Physician: NANCY VAIL [[id number]] Comment: Please note this report has been produced using speech recognition software. Daniel Mackey MD Attending Emergency Physician Daniel Mackey MD 08/19/251820 documented in this encounter Miscellaneous Notes * Case Management/Social Work - Leila Fernandez MSW - 08/25/2025 11:27 AM EST Case Management Discharge Note Final Note: SW met with pt at bedside this morning. He hopes to discharge home today. Pt stated hisfamily will provide his transportation. Pt denies having any discharge needs. IMM was delivered on 08/23/25. Selected Continued Care - Admitted Since 08/19/2025 Destination No services have been selected for the patient. Durable Medical Equipment No services have been selected for the patient. Dialysis/Infusion No services have been selected for the patient. Home Medical Care No services have been selected for the patient. Therapy No services have been selected for the patient. Community & DME No services have been selected for the patient. Community Resources No active community resources. Final Discharge Disposition Code: 01 - home or self-care * Case Management/Social Work - Neri Marion RN - 08/24/2025 12:21 PM EST Continued Stay Note [facility] Patient Name: Valdez Grier Today's Date: 08/24/2025 Admit Date: 08/19/2025 Plan: Home Discharge Plan Row Name 08/24/25 1216 Plan Plan Home Patient/Family in Agreement with Plan yes Plan Comments I met w/Mr. Grier in room w/his POA/ex spouse as well to discuss d/c planning. She states that it is mainly her who assists him, they have a daughter but she is disabled. She described Mr. Grier as very private does not do well w/strange people coming in home like HH or caregivers. Maribelhave discussed selling both of their homes and moving in together, but he does not want to leave his home. PT saw today and recs are home w/HH, they want to hold off @ this time. I explained that once they get home, and f/u w/his PCP, if they feel there is a need, PCP can arrange @ that time. I provided his exspouse a Roadmap to Recovery to describe all types of facilities and what is private payvs insurance coverage. I also provided contact information for [facility] for any assistance if needed in the future. DC plan @ this time is home, ex spouse will transport. No other d/c needs expressed @ this time. Final Discharge Disposition Code 01 - home or self-care Discharge Codes No documentation. Expected Discharge Date and Time Expected Discharge Date Expected Discharge Time Aug 26, 2025 Neri Marion RN * Therapy Evaluation - Phillip Ordonez, PT - 08/24/2025 10:55 AM EST Images from the original note were not included. Patient Name: Valdez Grier : 1935 Today's Date: 08/24/2025 Admit Date: 08/19/2025 Visit Dx: ICD-10-CM ICD-9-CM 1. Acute GI bleeding K92.2 578.9 2. Acute blood loss anemia D62 285.1 3. Hypotension, unspecified hypotension type I95.9 458.9 4. Anticoagulated Z79.01 V58.61 Patient Active Problem List Diagnosis Sleep apnea Hypertension Hyperlipidemia CAD (coronary artery disease) Encounter for pre-operative cardiovascular clearance Pacemaker Nonrheumatic mitral valve regurgitation Bilateral carotid artery stenosis Hypertension, essential Pure hypercholesterolemia, unspecified GI bleed Past Medical History: Diagnosis Date Anemia CAD (coronary artery disease) Hyperlipidemia Hypertension Mitral valve prolapse Pacemaker Sleep apnea ABH 9; intolerant to CPAP/BiPAP Past Surgical History: Procedure Laterality Date CAROTID STENT CORONARY ARTERY BYPASS GRAFT CYSTOSCOPY W/ LASER LITHOTRIPSY ENDOSCOPY N/A 08/20/2025 Procedure: ESOPHAGOGASTRODUODENOSCOPY; Surgeon: Yair Wagner MD; Location: [facility]; Service: Gastroenterology; Laterality: N/A; APC to stomach - effect 2, max knapp 30. APC to small bowel - effect 2, max knapp 20. HERNIA REPAIR General Information Row Name 08/24/25 1128 Physical Therapy Time and Intention Document Type evaluation -AG Mode of Treatment physical therapy -AG Row Name 08/24/25 1127 General Information Patient Profile Reviewed yes -AG Prior Level of Function independent:;all household mobility;community mobility;gait;transfer;bed mobility;driving -AG Existing Precautions/Restrictions no known precautions/restrictions -AG Barriers to Rehab none identified -AG Row Name 08/24/25 1121 Living Environment Current Living Arrangements home -AG People in Home alone -AG Row Name 08/24/25 1128 Home Main Entrance Number of Stairs, Main Entrance one -AG Row Name 08/24/25 1128 Cognition Orientation Status (Cognition) oriented x 3 -AG Row Name 08/24/25 1128 Safety Issues/Impairments Affecting Functional Mobility Safety Issues Affecting Function (Mobility) safety precaution awareness;positioning of assistive device -AG Impairments Affecting Function (Mobility) endurance/activity tolerance -AG User Woodard (r) = Recorded By, (t) = Taken By, (c) = Cosigned By Initials Name Provider Type AG Phillip Ordonez PT Physical Therapist Mobility Row Name 08/24/25 1129 Bed Mobility Bed Mobility supine-sit;sit-supine;scooting/bridging -AG Scooting/Bridging Kinney (Bed Mobility) supervision;verbal cues -AG Supine-Sit Kinney (Bed Mobility) standby assist -AG Sit-Supine Kinney (Bed Mobility) standby assist -AG Assistive Device (Bed Mobility) bed rails;head of bed elevated -AG Comment, (Bed Mobility) SBA for supine<>sit. Vc for improved sequencing for scooting up in bed. -AG Row Name 08/24/25 1129 Sit-Stand Transfer Sit-Stand Kinney (Transfers) contact guard -AG Assistive Device (Sit-Stand Transfers) walker, front-wheeled -AG Comment, (Sit-Stand Transfer) EOBx2 -AG Row Name 08/24/25 1129 Gait/Stairs (Locomotion) Kinney Level (Gait) contact guard -AG Assistive Device (Gait) walker, front-wheeled -AG Patient was able to Ambulate yes -AG Distance in Feet (Gait) 300 -AG Comment, (Gait/Stairs) pt amb 250' c RW and 50' c no AD. CGA d/t pt coming in for fall from anemia.Pt amb with sstep through gait pattern at a normal pace. -AG User Woodard (r) = Recorded By, (t) = Taken By, (c) = Cosigned By Initials Name Provider Type Phillip De La Cruz PT Physical Therapist Obj/Interventions Row Name 08/24/25 1132 Range of Motion Comprehensive General Range of Motion bilateral lower extremity ROM WFL -AG Row Name 08/24/25 1132 Strength Comprehensive (MMT) General Manual Muscle Testing (MMT) Assessment lower extremity strength deficits identified -AG Comment, General Manual Muscle Testing (MMT) Assessment BLE grossly 4/5 -AG Row Name 08/24/25 1132 Balance Balance Assessment sitting static balance;sitting dynamic balance;standing static balance;standing dynamic balance -AG Static Sitting Balance standby assist -AG Dynamic Sitting Balance standby assist -AG Position, Sitting Balance unsupported;sitting edge of bed -AG Static Standing Balance contact guard -AG Dynamic Standing Balance contact guard -AG Position/Device Used, Standing Balance supported;unsupported -AG Balance Interventions sitting;standing;sit to stand;supported;static;dynamic;occupation based/functional task -AG Comment, Balance no overt LOB or buckling -AG User Woodard (r) = Recorded By, (t) = Taken By, (c) = Cosigned By Initials Name Provider Type Phillip De La Cruz, PT Physical Therapist Goals/Plan Row Name 08/24/25 113 Bed Mobility Goal 1 (PT) Activity/Assistive Device (Bed Mobility Goal 1, PT) sit to supine/supine to sit;scooting -AG Kinney Level/Cues Needed (Bed Mobility Goal 1, PT) independent -AG Time Frame (Bed Mobility Goal 1, PT) short term goal (STG);5 days -AG Row Name 08/24/25 113 Transfer Goal 1 (PT) Activity/Assistive Device (Transfer Goal 1, PT) [id number]-[id number]-is-lpi;ifd-pc-rwuyb/phvzl-yt-lwu-AG Kinney Level/Cues Needed (Transfer Goal 1, PT) standby assist -AG Time Frame (Transfer Goal 1, PT) longterm goal (LTG);10 days -AG Row Name 08/24/25 113 Gait Training Goal 1 (PT) Activity/Assistive Device (Gait Training Goal 1, PT) gait (walking locomotion);improve balance and speed;increase endurance/gait distance -AG Kinney Level (Gait Training Goal 1, PT) standby assist -AG Distance (Gait Training Goal 1, PT) 500' -AG Time Frame (Gait Training Goal 1, PT) longterm goal (LTG);10 days -AG Row Name 08/24/25 1135 Stairs Goal 1 (PT) Activity/Assistive Device (Stairs Goal 1, PT) ascending stairs;descending stairs -AG Kinney Level/Cues Needed (Stairs Goal 1, PT) standby assist -AG Number of Stairs (Stairs Goal 1, PT) 1 -AG Time Frame (Stairs Goal 1, PT) terminologist goal (LTG);10 days -AG Row Name 08/24/25 1139 Therapy Assessment/Plan (PT) Planned Therapy Interventions (PT) balance training;bed mobility training;gait training;home exercise program;patient/family education;postural re- education;stair training;strengthening;stretching;transfer training -AG User Woodard (r) = Recorded By, (t) = Taken By, (c) = Cosigned By Initials Name Provider Type AG Phillip Ordonez PT Physical Therapist Clinical Impression Row Name 08/24/25 1134 Pain Pretreatment Pain Rating 0/10 - no pain -AG Posttreatment Pain Rating 0/10 - no pain -AG Row Name 08/24/25 1134 Plan of Care Review Plan of Care Reviewed With patient -AG Progress no change -AG Outcome Evaluation PT initial eval completed. Pt amb 250' with RW and 50' without AD. pt present below baseline with deficits in endurance and strength. Further IPPT warranted to progress pt towards baseline. PT rec d/c home with HHPT for improvement back to baseline -AG Row Name 08/24/25 1134 Therapy Assessment/Plan (PT) Patient/Family Therapy Goals Statement (PT) to go home -AG Rehab Potential (PT) good -AG Criteria for Skilled Interventions Met (PT) no;no problems identified which require skilled intervention -AG Row Name 08/24/25 1134 Vital Signs Post Systolic BP Rehab 150 -AG Post Treatment Diastolic BP 125 RN notified -AG Pretreatment Heart Rate (beats/min) 107 -AG O2 Delivery Pre Treatment room air -AG O2 Delivery Intra Treatment room air -AG Post SpO2 (%) 99 -AG O2 Delivery Post Treatment room air -AG Pre Patient Position Supine -AG Intra Patient Position Standing -AG Post Patient Position Supine -AG Row Name 08/24/25 1134 Positioning and Restraints Pre-Treatment Position in bed -AG Post Treatment Position bed -AG In Bed notified nsg;call light within reach;encouraged to call for assist;exit alarm on;with family/caregiver;side rails up x3;supine -AG User Woodard (r) = Recorded By, (t) = Taken By, (c) = Cosigned By Initials Name Provider Type Phillip De La Cruz PT Physical Therapist Outcome Measures Row Name 08/24/25 1140 How much help from another person do you currently need... Turning from your back to your side while in flat bed without using bedrails? 4 -AG Moving from lying on back to sitting on the side of a flat bed without bedrails? 4 -AG Moving to and from a bed to a chair (including a wheelchair)? 3 -AG Standing up from a chair using your arms (e.g., wheelchair, bedside chair)? 3 -AG Climbing 3-5 steps with a railing? 3 -AG To walk in hospital room? 3 -AG AM-PAC 6 Clicks Score (PT) 20 -AG Highest Level of Mobility Goal Walk 10 Steps or More-6 -AG Row Name 08/24/25 1140 Functional Assessment Outcome Measure Options AM-PAC 6 Clicks Basic Mobility (PT) - User Woodard (r) = Recorded By, (t) = Taken By, (c) = Cosigned By Initials Name Provider Type Phillip Ordonez PT Physical Therapist Physical Therapy Education Title: PT OT CONSUMER EDUCATOR Therapies (In Progress) Topic: Physical Therapy (In Progress) Point: Mobility training (Done) Learning Progress Summary Patient Acceptance, E, VU by at 08/24/2025 1140 Family Acceptance, E, VU by at 08/24/2025 1140 Point: Home exercise program (Not Started) Learner Progress: Not documented in this visit. Point: Body mechanics (Done) Learning Progress Summary Patient Acceptance, E, VU by at 08/24/2025 1140 Family Acceptance, E, VU by at 08/24/2025 1140 Point: Precautions (Done) Learning Progress Summary Patient Acceptance, E, VU by at 08/24/2025 1140 Family Acceptance, E, VU by at 08/24/2025 1140 User Woodard Initials Effective Dates Name Provider Type Discipline 06/15/25 - Phillip Ordonez PT Physical Therapist PT PT Recommendation and Plan Recommended discharge disposition is based on the functional assessment performed by PT/OT/Speech therapy (as applicable) and may not reflect the medical necessity determined by your provider or services covered by an individual patient's insurance plan or patient resource. Planned Therapy Interventions (PT): balance training, bed mobility training, gait training, home exercise program, patient/family education, postural re- education, stair training, strengthening, stretching, transfer training Progress: no change Outcome Evaluation: PT initial eval completed. Pt amb 250' with RW and 50' without AD. pt present below baseline with deficits in endurance and strength. Further IPPT warranted to progress pt towardsbaseline. PT rec d/c home with HHPT for improvement back to baseline Time Calculation: PT Evaluation Complexity History, PT Evaluation Complexity: 1-2 personal factors and/or comorbidities Examination of Body Systems (PT Eval Complexity): total of 3 or more elements Clinical Presentation (PT Evaluation Complexity): stable Clinical Decision Making (PT Evaluation Complexity): low complexity Overall Complexity (PT Evaluation Complexity): low complexity PT Charges Row Name 08/24/25 1141 Time Calculation Start Time 1055 -AG PT Received On 08/24/25 -AG PT Goal Re-Cert Due Date 09/03/25 -AG Untimed Charges PT Eval/Re-eval Minutes 55 -AG Total Minutes Untimed Charges Total Minutes 55 -AG Total Minutes 55 -AG User Woodard (r) = Recorded By, (t) = Taken By, (c) = Cosigned By Initials Name Provider Type AG Phillip Ordonez PT Physical Therapist Therapy Charges for Today Code Description Service Date Service Provider Modifiers Qty [id number] HC PT EVAL LOW COMPLEXITY 4 08/24/2025 Phillip Ordonez, PT GP 1 PT G-Codes Outcome Measure Options: AM-PAC 6 Clicks Basic Mobility (PT) AM-PAC 6 Clicks Score (PT): 20 PT Discharge Summary Anticipated Discharge Disposition (PT): home with home health Phillip Ordonez PT 08/24/2025 * Case Management/Social Work - Madonna Steinberg RN - 08/23/2025 3:02 PM EST Images from the original note were not included. Discharge Planning Assessment [place] Patient Name: Valdez Grier Today's Date: 08/23/2025 Admit Date: 08/19/2025 Plan: Home Discharge Needs Assessment Row Name 08/23/25 1450 Living Environment People in Home alone Current Living Arrangements home Primary Care Provided by self Provides Primary Care For no one Family Caregiver if Needed other (see comments) Ex and POA Arabella Grier Quality of Family Relationships supportive Able to Return to Prior Arrangements yes Resource/Environmental Concerns Transportation Concerns none Transition Planning Patient/Family Anticipates Transition to home Transportation Anticipated family or friend will provide Discharge Needs Assessment Readmission Within the Last 30 Days no previous admission in last 30 days Equipment Currently Used at Home none Discharge Plan Row Name 08/23/25 1457 Plan Plan Home Patient/Family in Agreement with Plan yes Plan Comments Spoke with Mr. Grier and Caregiver (POA) at the bedside to complete IDP. Mr. Grier [facility]. Patient's (POA) assists Mr. Grier when needed and checks on him daily. Heis independent with ADL's and still drives. He has a CPAP machine at home, but does not use. He does not use home health services. He has advance directives filed. His preferred Pharmacy is [facility]. His PCP is Danisha Nguyen and he has Medicare A and B and [employer] insurance. Discharge plan is home. CM will continue to follow and assist with discharge needs as recommendations become available. Final Discharge Disposition Code 01 - home or self-care Continued Care and Services - Admitted Since 08/19/2025 No active coordination exists. 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 Abuse/Neglect No documentation. Legal No documentation. Substance Abuse No documentation. Patient Forms No documentation. Madonna Steinberg RN documented in this encounter Plan of Treatment Upcoming Encounters Date Type Department Care Team (Late st Contact Info) Description 09/20/2025 1:15 PM EST Office Visit [facility] [address] [place] [address] [place] [phone] Huang aVldez MD [address] [place] [address] [place] [id number] 09/29/2025 2:45 PM EST Office Visit [facility] [address] [place] [address] [address] [place], [place] [phone] Willow Rodgers APRN [address] [place] [id number] 09/29/2025 2:45 PM EST Clinical Support No Requirements [facility] [address] [place] [address] [address] [place], [place] [phone] Pending Results Name Type Priority Associated Diagnoses Date /Time ECG 12 Lead Rhythm Change ECG STAT 08/25/2025 2:40 AM EST documented as of this encounter Procedures Procedure Name Priority Date/Time Associated Diagnosis Comments CBC WITH AUTO DIFFERENTIAL Routine 08/25 5:48 AM EST CBC AND DIFFERENTIAL Routine 08/25/2025 5:48 AM EST ECG 12-LEAD STAT 08/25/2025 2:40 AM EST Procedure Note - 08/25/2025 2:40 AM ESTThis note is in progress. Test Reason : Rhythm Change Blood Pressure : */* mmHG Vent. Rate : 98 BPM Atrial Rate : 73 BPM P-R Int : * ms QRS Dur : 76 ms QT Int : 328 ms P-R-T Axes : * 11 -66 degrees QTcB Int : [address] & T wave abnormality, consider lateral ischemia Abnormal ECG When compared with ECG of 22-Aug-2025 03:03, T wave inversion less evident in Lateral leads Referred By: Confirmed By: CBC WITH AUTO DIFFERENTIAL Routine 08/24 5:36 AM EST CBC AND DIFFERENTIAL Routine 08/24/2025 5:36 AM EST BASIC METABOLIC PANEL Routine 08/24/2025 5:36 AM EST SCANNED - TELEMETRY 08/23/2025 10:05 AM EST HEMOGLOBIN AND HEMATOCRIT, BLOOD Timed 08/23/2025 7:22 AM EST CBC WITH AUTO DIFFERENTIAL Routine 08/23 2:57 AM EST CBC AND DIFFERENTIAL Routine 08/23/2025 2:57 AM EST MAGNESIUM Routine 08/23/2025 2:57 AM EST BASIC METABOLIC PANEL Routine 08/23/2025 2:57 AM EST SCANNED - TELEMETRY 08/22/2025 7:19 PM EST HEMOGLOBIN AND HEMATOCRIT, BLOOD Timed 08/22/2025 7:12 PM EST SCANNED - TELEMETRY 08/22/2025 5:21 PM EST POTASSIUM Timed 08/22/2025 4:11 PM EST HEMOGLOBIN AND HEMATOCRIT, BLOOD Timed 08/22/2025 6:38 AM EST PHOSPHORUS Routine 08/22/2025 6:38 AM EST MAGNESIUM Routine 08/22/2025 6:38 AM EST BASIC METABOLIC PANEL Routine 08/22/2025 6:38 AM EST POCT GLUCOSE FINGERSTICK Routine 025 5:31 AM EST ECG 12-LEAD Routine 08/22/2025 3:03 AM EST HEMOGLOBIN AND HEMATOCRIT, BLOOD Timed 08/21/2025 11:40 PM EST HEMOGLOBIN AND HEMATOCRIT, BLOOD Timed 08/21/2025 6:14 PM EST HEMOGLOBIN AND HEMATOCRIT, BLOOD Timed 08/21/2025 12:31 PM EST PREPARE RBC STAT 08/21/2025 12:10 PM EST SCANNED - TELEMETRY 08/21/2025 9:42 AM EST POCT GLUCOSE FINGERSTICK Routine 025 5:20 AM EST CBC WITH AUTO DIFFERENTIAL Routine 08/21 3:14 AM EST CBC AND DIFFERENTIAL Routine 08/21/2025 3:14 AM EST PHOSPHORUS Routine 08/21/2025 3:14 AM EST MAGNESIUM Routine 08/21/2025 3:14 AM EST BASIC METABOLIC PANEL Routine 08/21/2025 3:14 AM EST HEMOGLOBIN AND HEMATOCRIT, BLOOD Timed 08/21/2025 12:26 AM EST POCT GLUCOSE FINGERSTICK Routine 11:14 PM EST HEMOGLOBIN AND HEMATOCRIT, BLOOD Timed 08/20/2025 7:40 PM EST POCT GLUCOSE FINGERSTICK Routine 5:23 PM EST MD ESOPHAGOGASTRODUODENOSCOP Y TRANSORAL DIAGNOSTIC 08/20/2025 3:28 PM EST UPPER GI ENDOSCOPY 08/20/2025 3:03 PM EST HEMOGLOBIN AND HEMATOCRIT, BLOOD Timed 08/20/2025 12:18 PM EST POCT GLUCOSE FINGERSTICK Routine 12:04 PM EST CBC WITH AUTO DIFFERENTIAL STAT 08/20 7:35 AM EST CBC AND DIFFERENTIAL STAT 08/20/2025 7:35 AM EST PHOSPHORUS Routine 08/20/2025 7:35 AM EST MAGNESIUM Routine 08/20/2025 7:35 AM EST COMPREHENSIVE METABOLIC PANEL Routine 7:35 AM EST POCT GLUCOSE FINGERSTICK Routine 025 6:21 AM EST TRANSFUSE RED BLOOD CELLS STAT 2024 1:39 AM EST LACTIC ACID, REFLEX STAT 08/20/2025 12:33 AM EST CBC (NO DIFF) STAT 08/20/2025 12:33 AM EST PHOSPHORUS STAT 08/20/2025 12:33 AM EST MAGNESIUM STAT 08/20/2025 12:33 AM EST CALCIUM, IONIZED STAT 08/20/2025 12:33 AM EST BASIC METABOLIC PANEL STAT 08/20/2025 12:33 AM EST POCT GLUCOSE FINGERSTICK Routine 025 11:57 PM EST TRANSFUSE RED BLOOD CELLS STAT 2024 7:33 PM EST LACTIC ACID, REFLEX STAT 08/19/2025 6:33 PM EST HEMOGLOBIN AND HEMATOCRIT, BLOOD STAT 08/19/2025 6:33 PM EST URINALYSIS, MICROSCOPIC ONLY STAT 6:25 PM EST URINALYSIS W/ MICROSCOPIC IF INDICATED (NO CULTURE) STAT 08/19/2025 6:25 PM EST HEMOGLOBIN AND HEMATOCRIT, BLOOD STAT 08/19/2025 6:14 PM EST BLOOD CULTURE STAT 08/19/2025 5:26 PM EST ABORH 2ND SPECIMEN VERIFICATION STAT 08/19/2025 5:17 PM EST BLOOD CULTURE STAT 08/19/2025 5:17 PM EST ECG 12-LEAD STAT 08/19/2025 4:09 PM EST HIGH SENSITIVITIY TROPONIN T 1HR STAT 08/19/2025 4:08 PM EST TYPE AND SCREEN STAT 08/19/2025 4:[address] ANGIOGRAM ABDOMEN PELVIS STAT 07/25 3:[address] ANGIOGRAM CHEST W WO CONTRAST STAT 08/19/2025 3:[address] CERVICAL SPINE WO CONTRAST STAT 3:[address] HEAD WO CONTRAST STAT 08/19/2025 3:47 PM EST POCT GLUCOSE FINGERSTICK STAT 025 3:19 PM EST POCT CREATININE STAT 08/19/2025 3:16 PM EST HWANG TOP STAT 08/19/2025 3:08 PM EST GOLD TOP - SST STAT 08/19/2025 3:08 PM EST DK GREEN TOP STAT 08/19/2025 3:08 PM EST PROCALCITONIN STAT 08/19/2025 3:08 PM EST CBC WITH AUTO DIFFERENTIAL STAT 08/19 3:08 PM EST LAVENDER TOP STAT 08/19/2025 3:08 PM EST LIGHT BLUE TOP STAT 08/19/2025 3:08 PM EST RAINBOW DRAW STAT 08/19/2025 3:08 PM EST TROPONIN STAT 08/19/2025 3:08 PM EST PROTIME-INR STAT 08/19/2025 3:08 PM EST CBC AND DIFFERENTIAL STAT 08/19/2025 3:08 PM EST MAGNESIUM STAT 08/19/2025 3:08 PM EST LACTIC ACID, PLASMA STAT 08/19/2025 3:08 PM EST COMPREHENSIVE METABOLIC PANEL STAT 3:08 PM EST ECG 12-LEAD STAT 08/19/2025 3:01 PM EST SCANNED - TELEMETRY 08/19/2025 3:01 PM EST documented in this encounter Results * (ABNORMAL) CBC Auto Differential (08/25/2025 5:48 AM EST) WBC 7.91 3.40 - 10.80 10*3/mm3 08/25/2025 6:19 AM EST [facility] RBC 3.10(L) 4.14 - 5.80 10*6/mm3 08/25/2025 6:19 AM [facility] Hemoglobin 8.7(L) 13.0 - 17.7 g/dL 08/25/2025 6:19 AM [facility] Hematocrit 27.9(L) 37.5 - 51.0 % 08/25/2025 6:19 AM [facility] MCV 90.0 79.0 - 97.0 fL 08/25/2025 6:19 AM [facility] MCH 28.1 26.6 - 33.0 pg 08/25/2025 6:19 AM [facility] MCHC 31.2(L) 31.5 - 35.7 g/dL 08/25/2025 6:19 AM [facility] RDW 15.0 12.3 - 15.4 % 08/25/2025 6:19 AM [facility] RDW-SD 48.2 37.0 - 54.0 fl 08/25/2025 6:19 AM [facility] MPV 12.2(H) 6.0 - 12.0 fL 08/25/2025 6:19 AM [facility] Platelets 175 140 - 450 10*3/mm3 08/25/2025 6:19 AM [facility] Neutrophil % 67.7 42.7 - 76.0 % 08/25/2025 6:19 AM [facility] Lymphocyte % 14.2(L) 19.6 - 45.3 % 08/25/2025 6:19 AM [facility] Monocyte % 15.5(H) 5.0 - 12.0 % 08/25/2025 6:19 AM [facility] Eosinophil % 1.9 0.3 - 6.2 % 08/25/2025 6:19 AM [facility] Basophil % 0.4 0.0 - 1.5 % 08/25/2025 6:19 AM [facility] Immature Grans % 0.3 0.0 - 0.5 % 08/25/2025 6:19 AM [facility] Neutrophils, Absolute 5.36 1.70 - 7.00 10*3/mm3 08/25/2025 6:19 AM [facility] Lymphocytes, Absolute 1.12 0.70 - 3.10 10*3/mm3 08/25/2025 6:19 AM [facility] Monocytes, Absolute 1.23(H) 0.10 - 0.90 10*3/mm3 08/25/2025 6:19 AM [facility] Eosinophils, Absolute 0.15 0.00 - 0.40 10*3/mm3 08/25/2025 6:19 AM [facility] Basophils, Absolute 0.03 0.00 - 0.20 10*3/mm3 08/25/2025 6:19 AM [facility] Immature Grans, Absolute 0.02 0.00 - 0.05 10*3/mm3 08/25/2025 6:19 AM [facility] nRBC 0.0 0.0 - 0.2 /100 WBC 08/25/2025 6:19 AM [facility] Blood Venipuncture / Unknown 08/25/2025 5:48 AM EST 08/25/2025 6:08 AM EST us Thomas Segura MD LAB BLOOD ORDERABLES Final Resu lt [facility]
[address] [place] [address], * (ABNORMAL) CBC Auto Differential (08/24/2025 5:36 AM EST) WBC 5.94 3.40 - 10.80 10*3/mm3 08/24/2025 6:47 AM EST [facility] RBC 2.94(L) 4.14 - 5.80 10*6/mm3 08/24/2025 6:47 AM [facility] Hemoglobin 8.2(L) 13.0 - 17.7 g/dL 08/24/2025 6:47 AM [facility] Hematocrit 26.1(L) 37.5 - 51.0 % 08/24/2025 6:47 AM [facility] MCV 88.8 79.0 - 97.0 fL 08/24/2025 6:47 AM [facility] MCH 27.9 26.6 - 33.0 pg 08/24/2025 6:47 AM [facility] MCHC 31.4(L) 31.5 - 35.7 g/dL 08/24/2025 6:47 AM [facility] RDW 15.0 12.3 - 15.4 % 08/24/2025 6:47 AM [facility] RDW-SD 47.2 37.0 - 54.0 fl 08/24/2025 6:47 AM [facility] MPV 12.4(H) 6.0 - 12.0 fL 08/24/2025 6:47 AM [facility] Platelets 150 140 - 450 10*3/mm3 08/24/2025 6:47 AM [facility] Neutrophil % 69.4 42.7 - 76.0 % 08/24/2025 6:47 AM [facility] Lymphocyte % 13.5(L) 19.6 - 45.3 % 08/24/2025 6:47 AM [facility] Monocyte % 13.8(H) 5.0 - 12.0 % 08/24/2025 6:47 AM [facility] Eosinophil % 2.5 0.3 - 6.2 % 08/24/2025 6:47 AM [facility] Basophil % 0.3 0.0 - 1.5 % 08/24/2025 6:47 AM [facility] Immature Grans % 0.5 0.0 - 0.5 % 08/24/2025 6:47 AM [facility] Neutrophils, Absolute 4.12 1.70 - 7.00 10*3/mm3 08/24/2025 6:47 AM [facility] Lymphocytes, Absolute 0.80 0.70 - 3.10 10*3/mm3 08/24/2025 6:47 AM [facility] Monocytes, Absolute 0.82 0.10 - 0.90 10*3/mm3 08/24/2025 6:47 AM [facility] Eosinophils, Absolute 0.15 0.00 - 0.40 10*3/mm3 08/24/2025 6:47 AM [facility] Basophils, Absolute 0.02 0.00 - 0.20 10*3/mm3 08/24/2025 6:47 AM [facility] Immature Grans, Absolute 0.03 0.00 - 0.05 10*3/mm3 08/24/2025 6:47 AM [facility] nRBC 0.0 0.0 - 0.2 /100 WBC 08/24/2025 6:47 AM [facility] Blood Venipuncture / Unknown 08/24/2025 5:36 AM EST 08/24/2025 6:36 AM EST us Thomas Segura MD LAB BLOOD ORDERABLES Final Resu lt [facility]
[address] [place] [address], * (ABNORMAL) Basic Metabolic Panel (08/24/2025 5:36 AM EST) Glucose 97 65 - 99 mg/dL 08/24/2025 7:08 AM EST [facility] BUN 12.1 8.0 - 23.0 mg/dL 08/24/2025 7:08 AM [facility] Creatinine 0.75(L) 0.76 - 1.27 mg/dL 08/24/2025 7:08 AM [facility] Sodium 140 136 - 145 mmol/L 08/24/2025 7:08 AM [facility] Potassium 3.9 3.5 - 5.2 mmol/L 08/24/2025 7:08 AM [facility] Chloride 107 98 - 107 mmol/L 08/24/2025 7:08 AM [facility] CO2 25.1 22.0 - 29.0 mmol/L 08/24/2025 7:08 AM [facility] Calcium 8.8 8.6 - 10.5 mg/dL 08/24/2025 7:08 AM [facility] LABORATORY BUN/Creatinine Ratio 16.1 7.0 - 25.0 08/24/2025 7:08 AM [facility] Anion Gap 7.9 5.0 - 15.0 mmol/L 08/24/2025 7:08 AM [facility] eGFR 87.3 >60.0 mL/min/1.7 3 08/24/2025 7:08 AM [facility] Blood Venipuncture / Unknown 08/24/2025 5:36 AM EST 08/24/2025 6:37 AM EST Narrative [facility] - 08/24/2025 7:08 AM EST GFR Categories in Chronic Kidney Disease (CKD) GFR Category GFR (mL/min/1.73) Interpretation G1 90 or greater Normal or high (1) G2 60-89 Mild decrease (1) G3a 45-59 Mild to moderate decrease G3b 30-44 Moderate to severe decrease G4 15-29 Severe decrease G5 14 or less Kidney failure (1)In the absence of evidence of kidney disease, neither GFR category G1 or G2 fulfill the criteria for CKD. eGFR calculation 2020 CKD-EPI creatinine equation, which does not include race as a factor Thomas Segura MD LAB BLOOD ORDERABLES Final Resu lt [facility]
[address] [place] [address], * Telemetry Scan (08/23/2025 10:05 AM EST) [facility] ECG ORDERABLES Final Result * (ABNORMAL) Hemoglobin & Hematocrit, Blood (08/23/2025 7:22 AM EST) Hemoglobin 7.7(L) 13.0 - 17.7 g/dL 08/23/2025 8:05 AM EST [facility] Hematocrit 24.1(L) 37.5 - 51.0 % 08/23/2025 8:05 AM EST [facility] Blood Venipuncture / Unknown 08/23/2025 7:22 AM EST 08/23/2025 8:01 AM EST James Tineo MD LAB BLOOD ORDERABLES Final Re sult [facility]
[address] [place] [address], * (ABNORMAL) CBC Auto Differential (08/23/2025 2:57 AM EST) WBC 6.73 3.40 - 10.80 10*3/mm3 08/23/2025 3:55 AM [facility] RBC 2.62(L) 4.14 - 5.80 10*6/mm3 08/23/2025 3:55 AM [facility] Hemoglobin 7.3(L) 13.0 - 17.7 g/dL 08/23/2025 3:55 AM [facility] Hematocrit 23.5(L) 37.5 - 51.0 % 08/23/2025 3:55 AM [facility] MCV 89.7 79.0 - 97.0 fL 08/23/2025 3:55 AM [facility] MCH 27.9 26.6 - 33.0 pg 08/23/2025 3:55 AM [facility] MCHC 31.1(L) 31.5 - 35.7 g/dL 08/23/2025 3:55 AM [facility] RDW 14.6 12.3 - 15.4 % 08/23/2025 3:55 AM [facility] RDW-SD 46.5 37.0 - 54.0 fl 08/23/2025 3:55 AM [facility] MPV 12.8(H) 6.0 - 12.0 fL 08/23/2025 3:55 AM [facility] Platelets 141 140 - 450 10*3/mm3 08/23/2025 3:55 AM [facility] Neutrophil % 64.3 42.7 - 76.0 % 08/23/2025 3:55 AM [facility] Lymphocyte % 15.6(L) 19.6 - 45.3 % 08/23/2025 3:55 AM [facility] Monocyte % 17.5(H) 5.0 - 12.0 % 08/23/2025 3:55 AM [facility] Eosinophil % 1.9 0.3 - 6.2 % 08/23/2025 3:55 AM [facility] Basophil % 0.3 0.0 - 1.5 % 08/23/2025 3:55 AM EST [facility] Immature Grans % 0.4 0.0 - 0.5 % 08/23/2025 3:55 AM EST [facility] Neutrophils, Absolute 4.32 1.70 - 7.00 10*3/mm3 08/23/2025 3:55 AM EST [facility] Lymphocytes, Absolute 1.05 0.70 - 3.10 10*3/mm3 08/23/2025 3:55 AM EST [facility] Monocytes, Absolute 1.18(H) 0.10 - 0.90 10*3/mm3 08/23/2025 3:55 AM EST [facility] Eosinophils, Absolute 0.13 0.00 - 0.40 10*3/mm3 08/23/2025 3:55 AM [facility] Basophils, Absolute 0.02 0.00 - 0.20 10*3/mm3 08/23/2025 3:55 AM EST [facility] Immature Grans, Absolute 0.03 0.00 - 0.05 10*3/mm3 08/23/2025 3:55 AM [facility] nRBC 0.0 0.0 - 0.2 /100 WBC 08/23/2025 3:55 AM [facility] Blood Venipuncture / Unknown 08/23/2025 2:57 AM EST 08/23/2025 3:48 AM EST us James Tineo MD LAB BLOOD ORDERABLES Final Re sult [facility]
[address] [place] [address], * Magnesium (08/23/2025 2:57 AM EST) Magnesium 2.2 1.6 - 2.4 mg/dL 08/23/2025 4:17 AM EST [facility] Blood Venipuncture / Unknown 08/23/2025 2:57 AM EST 08/23/2025 3:47 AM EST us James Tineo MD LAB BLOOD ORDERABLES Final Re sult [facility]
[address] [place] [address], * (ABNORMAL) Basic Metabolic Panel (08/23/2025 2:57 AM EST) Pathologist [facility] [place] Glucose 100(H) 65 - 99 mg/dL 08/23/2025 4:17 AM EST [facility] BUN 13.0 8.0 - 23.0 mg/dL 08/23/2025 4:17 AM EST [facility] Creatinine 0.90 0.76 - 1.27 mg/dL 08/23/2025 4:17 AM EST [facility] Sodium 140 136 - 145 mmol/L 08/23/2025 4:17 AM EST [facility] Potassium 4.1 3.5 - 5.2 mmol/L 08/23/2025 4:17 AM [facility] Chloride 109(H) 98 - 107 mmol/L 08/23/2025 4:17 AM EST [facility] CO2 24.1 22.0 - 29.0 mmol/L 08/23/2025 4:17 AM EST [facility] Calcium 8.5(L) 8.6 - 10.5 mg/dL 08/23/2025 4:17 AM EST [facility] BUN/Creatinine Ratio 14.4 7.0 - 25.0 08/23/2025 4:17 AM [facility] Anion Gap 6.9 5.0 - 15.0 mmol/L 08/23/2025 4:17 AM EST [facility] eGFR 82.7 >60.0 mL/min/1.7 3 08/23/2025 4:17 AM [facility] Blood Venipuncture / Unknown 08/23/2025 2:57 AM EST 08/23/2025 3:47 AM EST Narrative [facility] - 08/23/2025 4:17 AM EST GFR Categories in Chronic Kidney Disease (CKD) GFR Category GFR (mL/min/1.73) Interpretation G1 90 or greater Normal or high (1) G2 60-89 Mild decrease (1) G3a 45-59 Mild to moderate decrease G3b 30-44 Moderate to severe decrease G4 15-29 Severe decrease G5 14 or less Kidney failure (1)In the absence of evidence of kidney disease, neither GFR category G1 or G2 fulfill the criteria for CKD. eGFR calculation 2020 CKD-EPI creatinine equation, which does not include race as a factor James Tineo MD LAB BLOOD ORDERABLES Final Re sult [facility]
[address] [place] [address], * Telemetry Scan (08/22/2025 7:19 PM EST) [facility] ECG ORDERABLES Final Result * (ABNORMAL) Hemoglobin & Hematocrit, Blood (08/22/2025 7:12 PM EST) Hemoglobin 8.0(L) 13.0 - 17.7 g/dL 08/22/2025 7:21 PM EST [facility] Hematocrit 26.9(L) 37.5 - 51.0 % 08/22/2025 7:21 PM EST [facility] Blood Venipuncture / Unknown 08/22/2025 7:12 PM EST 08/22/2025 7:19 PM EST James Tineo MD LAB BLOOD ORDERABLES Final Re sult Performing Organization Address City/[facility]/ZIP Co de Phone Number [facility]
[address] [place] [address], * Telemetry Scan (08/22/2025 5:21 PM EST) [facility] ECG ORDERABLES Final Result * Potassium (08/22/2025 4:11 PM EST) Potassium 4.8 3.5 - 5.2 mmol/L 08/22/2025 4:47 PM EST [facility] Blood Venipuncture / Unknown 08/22/2025 4:11 PM EST 08/22/2025 4:19 PM EST James Tineo MD LAB BLOOD ORDERABLES Final Re sult Performing Organization Address City/[facility]/ZIP Co de Phone Number [facility]
[address] [place] [address], * (ABNORMAL) Hemoglobin & Hematocrit, Blood (08/22/2025 6:38 AM EST) Pathologist [facility] [place] Hemoglobin 8.5(L) 13.0 - 17.7 g/dL 08/22/2025 6:54 AM EST [facility] Hematocrit 26.9(L) 37.5 - 51.0 % 08/22/2025 6:54 AM EST [facility] Blood Venipuncture / Unknown 08/22/2025 6:38 AM EST 08/22/2025 6:49 AM EST Magalie Avery APRN LAB BLOOD ORDERABLES Final Result Performing Organization Address City/[facility]/ZIP Co de Phone Number [facility]
[address] [place] [address], * Phosphorus (08/22/2025 6:38 AM EST) Phosphorus 2.5 2.5 - 4.5 mg/dL 08/22/2025 7:14 AM EST [facility] Blood Venipuncture / Unknown 08/22/2025 6:38 AM EST 08/22/2025 6:49 AM EST us Yair Wagner MD LAB BLOOD ORDERABLES Final Resul t Performing Organization Address City/[facility] Co de Phone Number [facility]
[address] [place] [address], * Magnesium (08/22/2025 6:38 AM EST) Magnesium 2.1 1.6 - 2.4 mg/dL 08/22/2025 7:14 AM EST [facility] Blood Venipuncture / Unknown 08/22/2025 6:38 AM EST 08/22/2025 6:49 AM EST us Yair Wagner MD LAB BLOOD ORDERABLES Final Resul t Performing Organization Address [facility] de Phone Number [facility]
[address] [place] [address], * (ABNORMAL) Basic Metabolic Panel (08/22/2025 6:38 AM EST) Glucose 122(H) 65 - 99 mg/dL 08/22/2025 7:14 AM EST [facility] BUN 11.4 8.0 - 23.0 mg/dL 08/22/2025 7:14 AM EST [facility] Creatinine 0.85 0.76 - 1.27 mg/dL 08/22/2025 7:14 AM EST [facility] Sodium 140 136 - 145 mmol/L 08/22/2025 7:14 AM EST [facility] Potassium 3.6 3.5 - 5.2 mmol/L 08/22/2025 7:14 AM [facility] Chloride 109(H) 98 - 107 mmol/L 08/22/2025 7:14 AM EST [facility] CO2 22.6 22.0 - 29.0 mmol/L 08/22/2025 7:14 AM EST [facility] Calcium 8.8 8.6 - 10.5 mg/dL 08/22/2025 7:14 AM EST [facility] BUN/Creatinine Ratio 13.4 7.0 - 25.0 08/22/2025 7:14 AM EST [facility] Anion Gap 8.4 5.0 - 15.0 mmol/L 08/22/2025 7:14 AM EST [facility] eGFR 84.1 >60.0 mL/min/1.7 3 08/22/2025 7:14 AM EST [facility] Blood Venipuncture / Unknown 08/22/2025 6:38 AM EST 08/22/2025 6:49 AM EST Narrative [facility] - 08/22/2025 7:14 AM EST GFR Categories in Chronic Kidney Disease (CKD) GFR Category GFR (mL/min/1.73) Interpretation G1 90 or greater Normal or high (1) G2 60-89 Mild decrease (1) G3a 45-59 Mild to moderate decrease G3b 30-44 Moderate to severe decrease G4 15-29 Severe decrease G5 14 or less Kidney failure (1)In the absence of evidence of kidney disease, neither GFR category G1 or G2 fulfill the criteria for CKD. eGFR calculation 2020 CKD-EPI creatinine equation, which does not include race as a factor Yair Wagner MD LAB BLOOD ORDERABLES Final Resul t [facility]
[address] [place] [address], * POC Glucose Once (08/22/2025 5:31 AM EST) Glucose 110 70 - 130 mg/dL 08/22/2025 5:33 AM EST [facility] Comment:Serial Number: [id number] Blood 08/22/2025 5:31 AM EST 08/22/2025 5:33 AM EST us James Tineo MD POINT OF CARE TEST ORDERABLES Final Result [facility]
[address] [place] [address], * ECG 12 Lead Pre-Op / Pre-Procedure (08/22/2025 3:03 AM EST) QT Interval 322 ms BH ECG QTC Interval 431 ms ECG 08/22/2025 3:03 AM EST 08/22/2025 4:19 PM EST Narrative ECG - 08/22/2025 4:19 PM EST Test Reason : Pre-Op / Pre-Procedure Blood Pressure : */* mmHG Vent. Rate : 108 BPM Atrial Rate : * BPM P-R Int : * ms QRS Dur : 80 ms QT Int : 322 ms P-R-T Axes : * 24 251 degrees QTcB Int : 431 ms Atrial fibrillation with rapid ventricular response ST & T wave abnormality, consider inferior ischemia ST & T wave abnormality, consider anterolateral ischemia Abnormal ECG When compared with ECG of 19-Aug-2025 16:09, (Unconfirmed) Atrial fibrillation has replaced Electronic ventricular pacemaker Confirmed by RAMIN ZAPATA MD ([id number]) on 08/22/2025 4:19:06 PM Referred By: Confirmed By: RAMIN ZAPATA MD Procedure Note Ramin Zapata MD - 08/22/2025 Test Reason : Pre-Op / Pre-Procedure Blood Pressure : */* mmHG Vent. Rate : 108 BPM Atrial Rate : * BPM P-R Int : * ms QRS Dur : 80 ms QT Int : 322 ms P-R-T Axes : * 24 251 degrees QTcB Int : 431 ms Atrial fibrillation with rapid ventricular response ST & T wave abnormality, consider inferior ischemia ST & T wave abnormality, consider anterolateral ischemia Abnormal ECG When compared with ECG of 19-Aug-2025 16:09, (Unconfirmed) Atrial fibrillation has replaced Electronic ventricular pacemaker Confirmed by RAMIN ZAPATA MD ([id number]) on 08/22/2025 4:19:06 PM Referred By: Confirmed By: RAMIN ZAPATA MD Hao Fajardo MD ECG ORDERABLES Final Result Performing Organization Address City/[facility]/ZIP Co de Phone Number [facility] ECG * (ABNORMAL) Hemoglobin & Hematocrit, Blood (08/21/2025 11:40 PM EST) Hemoglobin 8.0(L) 13.0 - 17.7 g/dL 08/22/2025 12:40 AM EST [facility] Hematocrit 25.1(L) 37.5 - 51.0 % 08/22/2025 12:40 AM EST [facility] Blood Venipuncture / Unknown 08/21/2025 11:40 PM EST 08/22/2025 12:37 AM EST Magalie Avery APRN LAB BLOOD ORDERABLES Final Result Performing Organization Address [facility] Co de Phone Number [facility]
[address] [place] [address], * (ABNORMAL) Hemoglobin & Hematocrit, Blood (08/21/2025 6:14 PM EST) Hemoglobin 7.9(L) 13.0 - 17.7 g/dL 08/21/2025 6:51 PM EST [facility] Hematocrit 24.9(L) 37.5 - 51.0 % 08/21/2025 6:51 PM EST [facility] Blood Venipuncture / Unknown 08/21/2025 6:14 PM EST 08/21/2025 6:48 PM EST Magalie Avery [employer] LAB BLOOD ORDERABLES Final Result Performing Organization Address City/[facility] Co de Phone Number [facility]
[address] [place] [address], * (ABNORMAL) Hemoglobin & Hematocrit, Blood (08/21/2025 12:31 PM EST) Hemoglobin 8.2(L) 13.0 - 17.7 g/dL 08/21/2025 12:46 PM EST [facility] Hematocrit 26.2(L) 37.5 - 51.0 % 08/21/2025 12:46 PM EST [facility] Blood Venipuncture / Unknown 08/21/2025 12:31 PM EST 08/21/2025 12:41 PM EST Magalie Avery APRN LAB BLOOD ORDERABLES Final Result Performing Organization Address City/[facility] Co de Phone Number [facility]
[address] [phone] * Prepare RBC, 2 Units (08/21/2025 12:10 PM EST) Product Code [id number] [facility] LABORATORY Unit Number [id number] BA [facility] BB LABORATORY UNIT ABO A [facility] BB LABORATORY UNIT RH NEG [facility] LABORATORY Crossmatch Interpretation Compatible [facility] LABORATORY Dispense Status PT [facility] BB LABORATORY Blood Expiration Date [facility] LABORATORY Blood Type Barcode 0600 [facility] LABORATORY Product Code [id number] [facility] LABORATORY Unit Number [id number] [facility] BB LABORATORY UNIT ABO A [facility] BB LABORATORY UNIT NEG [facility] LABORATORY Crossmatch Interpretation Compatible [facility] LABORATORY Dispense Status PT [facility] BB LABORATORY Blood Expiration Date [facility] LABORATORY Blood Type Barcode 0600 [facility] LABORATORY Other Topography unknown / Unknown 08/19/2025 4:44 PM EST Daniel Mackey MD BLOOD BANK PRODUCT ORDERABLE S Edited Result - Final Performing Organization Address [facility] Co de Phone Number [facility] LABORATORY
[address] [place] [address], * Telemetry Scan (08/21/2025 9:42 AM EST) [facility] Onbase ECG ORDERABLES Final Result * POC Glucose Once (08/21/2025 5:20 AM EST) Pathologist [facility] Glucose 86 70 - 130 mg/dL 08/21/2025 5:22 AM [facility] Comment:Serial Number: [id number] Blood 08/21/2025 5:20 AM EST 08/21/2025 5:22 AM EST James Tineo MD POINT OF CARE TEST ORDERABLES Final Result [facility]
[address] [place] [address], * (ABNORMAL) CBC Auto Differential (08/21/2025 3:14 AM EST) Pathologist [facility] WBC 6.69 3.40 - 10.80 10*3/mm3 08/21/2025 4:01 AM [facility] RBC 2.66(L) 4.14 - 5.80 10*6/mm3 08/21/2025 4:01 AM [facility] Hemoglobin 7.7(L) 13.0 - 17.7 g/dL 08/21/2025 4:01 AM [facility] Hematocrit 23.9(L) 37.5 - 51.0 % 08/21/2025 4:01 AM [facility] MCV 89.8 79.0 - 97.0 fL 08/21/2025 4:01 AM [facility] MCH 28.9 26.6 - 33.0 pg 08/21/2025 4:01 AM [facility] MCHC 32.2 31.5 - 35.7 g/dL 08/21/2025 4:01 AM [facility] RDW 14.2 12.3 - 15.4 % 08/21/2025 4:01 AM [facility] RDW-SD 45.6 37.0 - 54.0 fl 08/21/2025 4:01 AM [facility] MPV 12.6(H) 6.0 - 12.0 fL 08/21/2025 4:01 AM [facility] Platelets 130(L) 140 - 450 10*3/mm3 08/21/2025 4:01 AM [facility] Neutrophil % 69.7 42.7 - 76.0 % 08/21/2025 4:01 AM [facility] Lymphocyte % 14.9(L) 19.6 - 45.3 % 08/21/2025 4:01 AM [facility] Monocyte % 13.5(H) 5.0 - 12.0 % 08/21/2025 4:01 AM [facility] Eosinophil % 1.2 0.3 - 6.2 % 08/21/2025 4:01 AM [facility] Basophil % 0.4 0.0 - 1.5 % 08/21/2025 4:01 AM [facility] Immature Grans % 0.3 0.0 - 0.5 % 08/21/2025 4:01 AM [facility] Neutrophils, Absolute 4.66 1.70 - 7.00 10*3/mm3 08/21/2025 4:01 AM [facility] Lymphocytes, Absolute 1.00 0.70 - 3.10 10*3/mm3 08/21/2025 4:01 AM [facility] Monocytes, Absolute 0.90 0.10 - 0.90 10*3/mm3 08/21/2025 4:01 AM [facility] Eosinophils, Absolute 0.08 0.00 - 0.40 10*3/mm3 08/21/2025 4:01 AM [facility] Basophils, Absolute 0.03 0.00 - 0.20 10*3/mm3 08/21/2025 4:01 AM EST [facility] Immature Grans, Absolute 0.02 0.00 - 0.05 10*3/mm3 08/21/2025 4:01 AM EST [facility] nRBC 0.0 0.0 - 0.2 /100 WBC 08/21/2025 4:01 AM EST [facility] Blood Venipuncture / Unknown 08/21/2025 3:14 AM EST 08/21/2025 3:49 AM EST James Tineo MD LAB BLOOD ORDERABLES Final Re sult Performing Organization Address City/[facility] de Phone Number [facility]
[address] [place] [address], * Phosphorus (08/21/2025 3:14 AM EST) Phosphorus 3.2 2.5 - 4.5 mg/dL 08/21/2025 4:21 AM EST [facility] Blood Venipuncture / Unknown 08/21/2025 3:14 AM EST 08/21/2025 3:51 AM EST Yair Wagner MD LAB BLOOD ORDERABLES Final Resul t Performing Organization Address [facility] de Phone Number [facility]
[address] [place] [address], * Magnesium (08/21/2025 3:14 AM EST) Magnesium 2.4 1.6 - 2.4 mg/dL 08/21/2025 4:21 AM EST [facility] Blood Venipuncture / Unknown 08/21/2025 3:14 AM EST 08/21/2025 3:51 AM EST us Yair Wagner MD LAB BLOOD ORDERABLES Final Resul t [facility]
[address] [place] [address], * (ABNORMAL) Basic Metabolic Panel (08/21/2025 3:14 AM EST) Glucose 80 65 - 99 mg/dL 08/21/2025 4:21 AM EST [facility] BUN 19.5 8.0 - 23.0 mg/dL 08/21/2025 4:21 AM EST [facility] Creatinine 0.98 0.76 - 1.27 mg/dL 08/21/2025 4:21 AM EST [facility] Sodium 144 136 - 145 mmol/L 08/21/2025 4:21 AM EST [facility] Potassium 4.2 3.5 - 5.2 mmol/L 08/21/2025 4:21 AM EST [facility] Chloride 114(H) 98 - 107 mmol/L 08/21/2025 4:21 AM EST [facility] CO2 20.5(L) 22.0 - 29.0 mmol/L 08/21/2025 4:21 AM EST [facility] Calcium 8.6 8.6 - 10.5 mg/dL 08/21/2025 4:21 AM EST [facility] BUN/Creatinine Ratio 19.9 7.0 - 25.0 08/21/2025 4:21 AM EST [facility] Anion Gap 9.5 5.0 - 15.0 mmol/L 08/21/2025 4:21 AM EST [facility] eGFR 74.6 >60.0 mL/min/1.7 3 08/21/2025 4:21 AM [facility] Blood Venipuncture / Unknown 08/21/2025 3:14 AM EST 08/21/2025 3:51 AM EST [facility] LABORATORY - 08/21/2025 4:21 AM EST GFR Categories in Chronic Kidney Disease (CKD) GFR Category GFR (mL/min/1.73) Interpretation G1 90 or greater Normal or high (1) G2 60-89 Mild decrease (1) G3a 45-59 Mild to moderate decrease G3b 30-44 Moderate to severe decrease G4 15-29 Severe decrease G5 14 or less Kidney failure (1)In the absence of evidence of kidney disease, neither GFR category G1 or G2 fulfill the criteria for CKD. eGFR calculation 2020 CKD-EPI creatinine equation, which does not include race as a factor Yair Wagner MD LAB BLOOD ORDERABLES Final Resul t Performing Organization Address City/[facility] de Phone Number [facility]
[address] [place] [address], * (ABNORMAL) Hemoglobin & Hematocrit, Blood (08/21/2025 12:26 AM EST) Hemoglobin 7.2(L) 13.0 - 17.7 g/dL 08/21/2025 12:40 AM EST [facility] Hematocrit 23.0(L) 37.5 - 51.0 % 08/21/2025 12:40 AM EST [facility] Blood Venipuncture / Unknown 08/21/2025 12:26 AM EST 08/21/2025 12:35 AM EST us Yair Wagner MD LAB BLOOD ORDERABLES Final Resul t Performing Organization Address [facility] de Phone Number [facility]
[address] [place] [address], * POC Glucose Once (08/20/2025 11:14 PM EST) Glucose 95 70 - 130 mg/dL 08/20/2025 11:16 PM EST [facility] Comment:Serial Number: [id number]: [id number] Blood 08/20/2025 11:1 4 PM EST 08/20/2025 11:16 PM EST James Tineo MD POINT OF CARE TEST ORDERABLES Final Result Performing Organization Address City/[facility] de Phone Number [facility]
[address] [place] [address], * (ABNORMAL) Hemoglobin & Hematocrit, Blood (08/20/2025 7:40 PM EST) Hemoglobin 7.6(L) 13.0 - 17.7 g/dL 08/20/2025 8:17 PM EST [facility] Hematocrit 24.1(L) 37.5 - 51.0 % 08/20/2025 8:17 PM EST [facility] Blood Venipuncture / Unknown 08/20/2025 7:40 PM EST 08/20/2025 8:14 PM EST Yair Wagner MD LAB BLOOD ORDERABLES Final Resul t Performing Organization Address City/[facility] Co de Phone Number [facility]
[address] [place], [place] [id number], * POC Glucose Once (08/20/2025 5:23 PM EST) Glucose 81 70 - 130 mg/dL 08/20/2025 5:28 PM EST [facility] Comment:Serial Number: [id number] Blood 08/20/2025 5:23 PM EST 08/20/2025 5:28 PM EST James Tineo MD POINT OF CARE TEST ORDERABLES Final Result Performing Organization Address City/[facility]/ZIP Co de Phone Number [facility]
[address] [place] [address], * Upper GI Endoscopy (08/20/2025 3:03 PM EST) us Yair Wagner MD INTERFACE NEEDS Final Result * (ABNORMAL) Hemoglobin & Hematocrit, Blood (08/20/2025 12:18 PM EST) Pathologist [facility] [place] Hemoglobin 7.8(L) 13.0 - 17.7 g/dL 08/20/2025 12:36 PM EST [facility] Hematocrit 25.0(L) 37.5 - 51.0 % 08/20/2025 12:36 PM EST [facility] Blood Venipuncture / Unknown 08/20/2025 12:18 PM EST 08/20/2025 12:32 PM EST Yair Wagner MD LAB BLOOD ORDERABLES Final Resul t [facility]
[address] [place] [address], * POC Glucose Once (08/20/2025 12:04 PM EST) Pathologist [facility] [place] Glucose 88 70 - 130 mg/dL 08/20/2025 12:06 PM EST [facility] Comment:Serial Number: [id number] Blood 08/20/2025 12:0 4 PM EST 08/20/2025 12:06 PM EST James Tineo MD POINT OF CARE TEST ORDERABLES Final Result [facility]
[address] [place] [address], * (ABNORMAL) CBC Auto Differential (08/20/2025 7:35 AM EST) Pathologist [facility] [place] WBC 6.49 3.40 - 10.80 10*3/mm3 08/20/2025 8:42 AM EST [facility] RBC 2.64(L) 4.14 - 5.80 10*6/mm3 08/20/2025 8:42 AM EST [facility] Hemoglobin 7.4(L) 13.0 - 17.7 g/dL 08/20/2025 8:42 AM [facility] Hematocrit 23.3(L) 37.5 - 51.0 % 08/20/2025 8:42 AM [facility] MCV 88.3 79.0 - 97.0 fL 08/20/2025 8:42 AM [facility] MCH 28.0 26.6 - 33.0 pg 08/20/2025 8:42 AM [facility] MCHC 31.8 31.5 - 35.7 g/dL 08/20/2025 8:42 AM [facility] RDW 13.9 12.3 - 15.4 % 08/20/2025 8:42 AM [facility] RDW-SD 44.7 37.0 - 54.0 fl 08/20/2025 8:42 AM [facility] MPV 12.9(H) 6.0 - 12.0 fL 08/20/2025 8:42 AM [facility] Platelets 130(L) 140 - 450 10*3/mm3 08/20/2025 8:42 AM [facility] Neutrophil % 72.5 42.7 - 76.0 % 08/20/2025 8:42 AM [facility] Lymphocyte % 12.3(L) 19.6 - 45.3 % 08/20/2025 8:42 AM [facility] Monocyte % 14.3(H) 5.0 - 12.0 % 08/20/2025 8:42 AM [facility] Eosinophil % 0.2(L) 0.3 - 6.2 % 08/20/2025 8:42 AM [facility] Basophil % 0.2 0.0 - 1.5 % 08/20/2025 8:42 AM [facility] Immature Grans % 0.5 0.0 - 0.5 % 08/20/2025 8:42 AM [facility] Neutrophils, Absolute 4.71 1.70 - 7.00 10*3/mm3 08/20/2025 8:42 AM [facility] Lymphocytes, Absolute 0.80 0.70 - 3.10 10*3/mm3 08/20/2025 8:42 AM EST [facility] Monocytes, Absolute 0.93(H) 0.10 - 0.90 10*3/mm3 08/20/2025 8:42 AM EST [facility] Eosinophils, Absolute 0.01 0.00 - 0.40 10*3/mm3 08/20/2025 8:42 AM EST [facility] Basophils, Absolute 0.01 0.00 - 0.20 10*3/mm3 08/20/2025 8:42 AM EST [facility] Immature Grans, Absolute 0.03 0.00 - 0.05 10*3/mm3 08/20/2025 8:42 AM EST [facility] nRBC 0.3(H) 0.0 - 0.2 /100 WBC 08/20/2025 8:42 AM EST [facility] Blood Venipuncture / Unknown 08/20/2025 7:35 AM EST 08/20/2025 7:39 AM EST Magalie Avery APRN LAB BLOOD ORDERABLES Final Result Performing Organization Address City/[facility]/ZIP Co de Phone Number [facility]
[address] [place] [address], * Phosphorus (08/20/2025 7:35 AM EST) Phosphorus 3.3 2.5 - 4.5 mg/dL 08/20/2025 7:59 AM EST [facility] Blood Venipuncture / Unknown 08/20/2025 7:35 AM EST 08/20/2025 7:39 AM EST Yair Wagner MD LAB BLOOD ORDERABLES Final Resul t Performing Organization Address City/[facility]/ZIP Co de Phone Number [facility]
[address] [place] [address], * Magnesium (08/20/2025 7:35 AM EST) Magnesium 2.1 1.6 - 2.4 mg/dL 08/20/2025 7:59 AM EST [facility] Blood Venipuncture / Unknown 08/20/2025 7:35 AM EST 08/20/2025 7:39 AM EST Yair Wagner MD LAB BLOOD ORDERABLES Final Resul t [facility]
[address] [place] [address], * (ABNORMAL) Comprehensive Metabolic Panel (08/20/2025 7:35 AM EST) Pathologist [facility] [place] Glucose 87 65 - 99 mg/dL 08/20/2025 7:59 AM [facility] BUN 22.9 8.0 - 23.0 mg/dL 08/20/2025 7:59 AM [facility] Creatinine 0.95 0.76 - 1.27 mg/dL 08/20/2025 7:59 AM [facility] Sodium 142 136 - 145 mmol/L 08/20/2025 7:59 AM [facility] Potassium 4.3 3.5 - 5.2 mmol/L 08/20/2025 7:59 AM [facility] Chloride 113(H) 98 - 107 mmol/L 08/20/2025 7:59 AM [facility] CO2 19.5(L) 22.0 - 29.0 mmol/L 08/20/2025 7:59 AM [facility] Calcium 8.8 8.6 - 10.5 mg/dL 08/20/2025 7:59 AM [facility] Total Protein 4.9(L) 6.0 - 8.5 g/dL 08/20/2025 7:59 AM [facility] Albumin 3.6 3.5 - 5.2 g/dL 08/20/2025 7:59 AM [facility] ALT (SGPT) 8 1 - 41 U/L 08/20/2025 7:59 AM EST [facility] AST (SGOT) 16 1 - 40 U/L 08/20/2025 7:59 AM [facility] Alkaline Phosphatase 86 39 - 117 U/L 08/20/2025 7:59 AM [facility] Total Bilirubin 2.1(H) 0.0 - 1.2 mg/dL 08/20/2025 7:59 AM [facility] Globulin 1.3 gm/dL 08/20/2025 7:59 AM [facility] Comment:Calculated Result A/G Ratio 2.8 g/dL 08/20/2025 7:59 AM [facility] BUN/Creatinine Ratio 24.1 7.0 - 25.0 08/20/2025 7:59 AM [facility] Anion Gap 9.5 5.0 - 15.0 mmol/L 08/20/2025 7:59 AM [facility] eGFR 77.5 >60.0 mL/min/1.7 3 08/20/2025 7:59 AM [facility] Blood Venipuncture / Unknown 08/20/2025 7:35 AM EST 08/20/2025 7:39 AM EST [facility] - 08/20/2025 7:59 AM EST GFR Categories in Chronic Kidney Disease (CKD) GFR Category GFR (mL/min/1.73) Interpretation G1 90 or greater Normal or high (1) G2 60-89 Mild decrease (1) G3a 45-59 Mild to moderate decrease G3b 30-44 Moderate to severe decrease G4 15-29 Severe decrease G5 14 or less Kidney failure (1)In the absence of evidence of kidney disease, neither GFR category G1 or G2 fulfill the criteria for CKD. eGFR calculation 2020 CKD-EPI creatinine equation, which does not include race as a factor us Nancy Vail MD LAB BLOOD ORDERABLES Fin al Result [facility]
[address] [place] [address], * POC Glucose Once (08/20/2025 6:21 AM EST) [facility] Glucose 86 70 - 130 mg/dL 08/20/2025 6:23 AM EST [facility] Comment:Serial Number: [id number] Blood 08/20/2025 6:21 AM EST 08/20/2025 6:23 AM EST Nancy Vail MD POINT OF CARE TEST ORDER AURA Final Result Performing Organization Address City/[facility]/ZIP Co de Phone Number [facility]
[address] [place] [address], * Transfuse RBC Infuse Each Unit Over: 2H (08/20/2025 3:50 AM EST) Daniel Mackey MD BLOOD TRANSFUSION ORDERABLES Final Result * Transfuse RBC, 2 Units Infuse Each Unit Over: 2H (08/20/2025 3:50 AM EST) Daniel Mackey MD BLOOD TRANSFUSION ORDERABLES Edited Result - Final * Calcium, Ionized (08/20/2025 12:33 AM EST) [facility] Ionized Calcium 1.22 1.15 - 1.30 mmol/L 08/20/2025 1:46 AM EST [facility] Blood Venipuncture / Unknown 08/20/2025 12:33 AM EST 08/20/2025 12:49 AM EST Marcela Graves MD LAB BLOOD ORDERABLES Final Result Performing Organization Address City/[facility]/ZIP Co de Phone Number [facility]
[address] [place] [address], * Phosphorus (08/20/2025 12:33 AM EST) [facility] Phosphorus 3.7 2.5 - 4.5 mg/dL 08/20/2025 1:18 AM EST [facility] Blood Venipuncture / Unknown 08/20/2025 12:33 AM EST 08/20/2025 12:49 AM EST Marcela Graves MD LAB BLOOD ORDERABLES Final Result [facility]
[address] [place] [address], * Magnesium (08/20/2025 12:33 AM EST) [facility] Magnesium 2.1 1.6 - 2.4 mg/dL 08/20/2025 1:18 AM EST [facility] Blood Venipuncture / Unknown 08/20/2025 12:33 AM EST 08/20/2025 12:49 AM EST Marcela Graves MD LAB BLOOD ORDERABLES Final Result Performing Organization Address City/[facility]/ZIP Co de Phone Number [facility]
[address] [place] [address], * (ABNORMAL) Basic Metabolic Panel (08/20/2025 12:33 AM EST) [facility] Glucose 98 65 - 99 mg/dL 08/20/2025 1:18 AM EST [facility] BUN 24.9(H) 8.0 - 23.0 mg/dL 08/20/2025 1:18 AM EST [facility] Creatinine 1.05 0.76 - 1.27 mg/dL 08/20/2025 1:18 AM EST [facility] Sodium 143 136 - 145 mmol/L 08/20/2025 1:18 AM EST [facility] Potassium 4.4 3.5 - 5.2 mmol/L 08/20/2025 1:18 AM EST [facility] Chloride 113(H) 98 - 107 mmol/L 08/20/2025 1:18 AM EST [facility] CO2 21.4(L) 22.0 - 29.0 mmol/L 08/20/2025 1:18 AM EST [facility] Calcium 9.0 8.6 - 10.5 mg/dL 08/20/2025 1:18 AM EST [facility] BUN/Creatinine Ratio 23.7 7.0 - 25.0 08/20/2025 1:18 AM EST [facility] Anion Gap 8.6 5.0 - 15.0 mmol/L 08/20/2025 1:18 AM EST [facility] eGFR 68.7 >60.0 mL/min/1.7 3 08/20/2025 1:18 AM EST [facility] Blood Venipuncture / Unknown 08/20/2025 12:33 AM EST 08/20/2025 12:49 AM EST [facility] - 08/20/2025 1:18 AM EST GFR Categories in Chronic Kidney Disease (CKD) GFR Category GFR (mL/min/1.73) Interpretation G1 90 or greater Normal or high (1) G2 60-89 Mild decrease (1) G3a 45-59 Mild to moderate decrease G3b 30-44 Moderate to severe decrease G4 15-29 Severe decrease G5 14 or less Kidney failure (1)In the absence of evidence of kidney disease, neither GFR category G1 or G2 fulfill the criteria for CKD. eGFR calculation 2020 CKD-EPI creatinine equation, which does not include race as a factor us Marcela Graves MD LAB BLOOD ORDERABLES Final Result [facility]
[address] [place] [address], * (ABNORMAL) CBC (No Diff) (08/20/2025 12:33 AM EST) WBC 5.88 3.40 - 10.80 10*3/mm3 08/20/2025 1:00 AM EST [facility] RBC 2.51(L) 4.14 - 5.80 10*6/mm3 08/20/2025 1:00 AM [facility] Hemoglobin 6.8(LL) 13.0 - 17.7 g/dL 08/20/2025 1:00 AM [facility] Hematocrit 22.7(L) 37.5 - 51.0 % 08/20/2025 1:00 AM [facility] MCV 90.4 79.0 - 97.0 fL 08/20/2025 1:00 AM [facility] MCH 27.1 26.6 - 33.0 pg 08/20/2025 1:00 AM [facility] MCHC 30.0(L) 31.5 - 35.7 g/dL 08/20/2025 1:00 AM [facility] RDW 14.2 12.3 - 15.4 % 08/20/2025 1:00 AM [facility] RDW-SD 46.2 37.0 - 54.0 fl 08/20/2025 1:00 AM [facility] MPV 12.1(H) 6.0 - 12.0 fL 08/20/2025 1:00 AM [facility] Platelets 137(L) 140 - 450 10*3/mm3 08/20/2025 1:00 AM [facility] Blood Venipuncture / Unknown 08/20/2025 12:33 AM EST 08/20/2025 12:50 AM EST us Marcela Graves MD LAB BLOOD ORDERABLES Final Result [facility]
[address] [place] [address], * STAT Lactic Acid, Reflex (08/20/2025 12:33 AM EST) Lactate 1.3 0.5 - 2.0 mmol/L 08/20/2025 1:17 AM [facility] Comment:Falsely depressed re sults may occur on samples drawn from patients receiving N-Acetylcysteine (NAC) or Metamizole. Blood Venipuncture / Unknown 08/20/2025 12:33 AM EST 08/20/2025 12:49 AM EST Daniel Mackey MD LAB BLOOD ORDERABLES Final R esult Performing Organization Address City/[facility]/ZIP Co de Phone Number [facility]
[address] [place] [address], * POC Glucose Once (08/19/2025 11:57 PM EST) Glucose 96 70 - 130 mg/dL 08/19/2025 11:59 PM EST [facility] Comment:Serial Number: [id number] Blood 08/19/2025 11:5 7 PM EST 08/19/2025 11:59 PM EST Nancy Vail MD POINT OF CARE TEST ORDER AURA Final Result Performing Organization Address City/[facility] Co de Phone Number [facility]
[address] [place] [address], * Transfuse RBC Infuse Each Unit Over: 2H (08/19/2025 11:00 PM EST) Daniel Mackey MD BLOOD TRANSFUSION ORDERABLES Final Result * (ABNORMAL) STAT Lactic Acid, Reflex (08/19/2025 6:33 PM EST) Lactate 2.3(HH) 0.5 - 2.0 mmol/L 08/19/2025 7:19 PM EST [facility] Comment:Falsely depressed re sults may occur on samples drawn from patients receiving N-Acetylcysteine (NAC) or Metamizole. Blood Venipuncture / Unknown 08/19/2025 6:33 PM EST 08/19/2025 6:42 PM EST Daniel Mackey MD LAB BLOOD ORDERABLES Final R esult Performing Organization Address City/[facility]/ZIP Co de Phone Number [facility]
[address] [place] [address], * (ABNORMAL) Hemoglobin & Hematocrit, Blood (08/19/2025 6:33 PM EST) Hemoglobin 5.9(LL) 13.0 - 17.7 g/dL 08/19/2025 6:57 PM EST [facility] Hematocrit 19.4(LL) 37.5 - 51.0 % 08/19/2025 6:57 PM EST [facility] Blood Venipuncture / Unknown 08/19/2025 6:33 PM EST 08/19/2025 6:42 PM EST Yair Wagner MD LAB BLOOD ORDERABLES Final Resul t Performing Organization Address [facility]/ZIP Co de Phone Number [facility]
[address] [place] [address], * (ABNORMAL) Urinalysis, Microscopic Only - Urine, Catheter (08/19/2025 6:25 PM EST) RBC, UA 3-5(A) None Seen, 0-2 /HPF 08/19/2025 7:22 PM EST [facility] WBC, UA 0-2 None Seen, 0-2 /HPF 08/19/2025 7:22 PM EST [facility] Bacteria, UA None Seen None Seen /HPF 08/19/2025 7:22 PM EST [facility] Squamous Epithelial Cells, UA 0-2 None Seen, 0-2 /HPF 08/19/2025 7:22 PM EST [facility] Hyaline Casts, UA 13-20 None Seen /LPF 08/19/2025 7:22 PM EST [facility] Mucus, UA Moderate/2+(A) None Seen, Trace /HPF 08/19/2025 7:22 PM [facility] Methodology Manual Light Microscopy 08/19/2025 7:22 PM [facility] Urine Urinary catheter / Unknown Collection / Unknown 08/19/2025 6:25 PM EST 08/19/2025 6:42 PM EST us Daniel Mackey MD URINE ORDERABLES Final Resul t [facility]
[address] [place] [address], * (ABNORMAL) Urinalysis With Microscopic If Indicated (No Culture) - Urine, Catheter (08/19/2025 6:25PM EST) Color, UA Dark Yellow(A) Yellow, Straw 08/19/2025 7:12 PM [facility] Appearance, UA Cloudy(A) Clear 08/19/2025 7:12 PM [facility] pH, UA 5.5 5.0 - 8.0 08/19/2025 7:12 PM [facility] Specific [place], UA >1.030(H) 1.005 - 1.030 08/19/2025 7:12 PM [facility] Glucose, UA Negative Negative 08/19/2025 7:12 PM [facility] Ketones, UA Trace(A) Negative 08/19/2025 7:12 PM [facility] Bilirubin, UA Negative Negative 08/19/2025 7:12 PM [facility] Blood, UA Negative Negative 08/19/2025 7:12 PM [facility] Protein, UA Trace(A) Negative 08/19/2025 7:12 PM [facility] Leuk Esterase, UA Trace(A) Negative 08/19/2025 7:12 PM [facility] Nitrite, UA Negative Negative 08/19/2025 7:12 PM [facility] Urobilinogen, UA 2.0 E.U./dL(A) 0.2 - 1.0 E.U./dL 08/19/2025 7:12 PM EST [facility] Urine Urinary catheter / Unknown Collection / Unknown 08/19/2025 6:25 PM EST 08/19/2025 6:42 PM EST Daniel Mackey MD URINE ORDERABLES Final Resul t Performing Organization Address City/[facility]/ZIP Co de Phone Number [facility]
[address] [place] [address], * (ABNORMAL) Hemoglobin & Hematocrit, Blood (08/19/2025 6:14 PM EST) Hemoglobin 5.7(LL) 13.0 - 17.7 g/dL 08/19/2025 6:27 PM EST [facility] Hematocrit 18.8(LL) 37.5 - 51.0 % 08/19/2025 6:27 PM EST [facility] Blood Line / Unknown 08/19/2025 6: 14 PM EST 08/19/2025 6:19 PM EST Yair Wagner MD LAB BLOOD ORDERABLES Final Resul t Performing Organization Address [facility] de Phone Number [facility]
[address] [place] [address], * Blood Culture - Blood, Arm, Right (08/19/2025 5:26 PM EST) Blood Culture No growth at 5 days 08/24/2025 7:46 PM EST [facility] Blood Structure of right upper limb / Unknown Venipuncture / Unknown 08/19/2025 5:26 PM EST 08/19/2025 7:41 PM EST Daniel Mackey MD MICROBIOLOGY - GENERAL ORDER AURA Final Result Performing Organization Address City/[facility]/ZIP Co de Phone Number [facility]
[address] [place] [address], * Blood Culture - Blood, Hand, Right (08/19/2025 5:17 PM EST) Blood Culture No growth at 5 days 08/24/2025 7:46 PM EST [facility] Blood Structure of right hand / Unknown Venipuncture / Unknown 08/19/2025 5:17 PM EST 08/19/2025 7:38 PM EST Narrative [facility] - 08/24/2025 7:46 PM EST Aerobic Bottle Only Daniel Mackey MD MICROBIOLOGY - GENERAL ORDER AURA Final Result Performing Organization Address [facility] Phone Number [facility]
[address] [place] [address], * ABO RH Specimen Verification (08/19/2025 5:17 PM EST) Pathologist [facility] [place] ABO Type A 08/19/2025 5:41 PM EST [facility] RH type Negative 08/19/2025 5:41 PM EST [facility] Blood Venipuncture / Unknown 08/19/2025 5:17 PM EST 08/19/2025 5:31 PM EST Daniel Mackey MD BLOOD BANK TEST ORDERABLES F inal Result Performing Organization Address [facility] Co de Phone Number [facility]
[address] [place] [address], * ECG 12 Lead Syncope (08/19/2025 4:09 PM EST) QT Interval 382 ms BH ECG QTC Interval 464 ms ECG 08/19/2025 4:09 PM EST 08/23/2025 10:38 PM EST Narrative BH ECG - 08/23/2025 10:38 PM EST Test Reason : Syncope Blood Pressure : */* mmHG Vent. Rate : 89 BPM Atrial Rate : 227 BPM P-R Int : * ms QRS Dur : 80 ms QT Int : 382 ms P-R-T Axes : * 52 244 degrees QTcB Int : 464 ms Suspect unspecified pacemaker failure Atrial fibrillation with occasional ventricular-paced complexes ST & T wave abnormality, consider inferior ischemia ST & T wave abnormality, consider anterolateral ischemia Prolonged QT Abnormal ECG When compared with ECG of 19-Aug-2025 15:01, (Unconfirmed) Vent. rate has increased by 3 bpm Confirmed by DANIEL MACKEY ([id number]) on 08/23/2025 10:38:30 PM Referred By: NAHUM EDGAR Confirmed By: DANIEL MACKEY Procedure Note Daniel Mackey MD - 08/23/2025 Test Reason : Syncope Blood Pressure : */* mmHG Vent. Rate : 89 BPM Atrial Rate : 227 BPM P-R Int : * ms QRS Dur : 80 ms QT Int : 382 ms P-R-T Axes : * 52 244 degrees QTcB Int : 464 ms Suspect unspecified pacemaker failure Atrial fibrillation with occasional ventricular-paced complexes ST & T wave abnormality, consider inferior ischemia ST & T wave abnormality, consider anterolateral ischemia Prolonged QT Abnormal ECG When compared with ECG of 19-Aug-2025 15:01, (Unconfirmed) Vent. rate has increased by 3 bpm Confirmed by DANIEL MACKEY ([id number]) on 08/23/2025 10:38:30 PM Referred By: NAHUM EDGAR Confirmed By: DANIEL MACKEY us Daniel Mackey MD ECG ORDERABLES Final Result ECG * (ABNORMAL) High Sensitivity Troponin T 1Hr (08/19/2025 4:08 PM EST) HS Troponin T 24(H) <22 ng/L 08/19/2025 4:36 PM EST [facility] Troponin T Numeric Delta -1 ng/L 08/19/2025 4:36 PM EST [facility] Troponin T % Delta -4 Abnormal if >/= 20% 08/19/2025 4:36 PM EST [facility] Blood Venipuncture / Unknown 08/19/2025 4:08 PM EST 08/19/2025 4:14 PM EST Narrative [facility] - 08/19/2025 4:36 PM EST High Sensitive Troponin T Reference Range: <14.0 ng/L- Negative Female for AMI <22.0 ng/L- Negative Male for AMI >=14 - Abnormal Female indicating possible myocardial injury. >=22 - Abnormal Male indicating possible myocardial injury. Clinicians would have to utilize clinical acumen, EKG, Troponin, and serial changes to determine if it is an Acute Myocardial Infarction or myocardial injury due to an underlying chronic condition. Daniel Mackey MD LAB BLOOD ORDERABLES Final R esult Performing Organization Address [facility] Co de Phone Number [facility]
[address] [place] [address], * Type & Screen (08/19/2025 4:00 PM EST) ABO Type A 08/19/2025 5:15 PM EST [facility] RH type Negative 08/19/2025 5:15 PM EST [facility] Antibody Screen Negative 08/19/2025 5:15 PM EST [facility] T&S Expiration Date 08/22/2025 11:59:59 PM 08/19/2025 5:15 PM EST [facility] Blood Line / Unknown 08/19/2025 4: 00 PM EST 08/19/2025 4:44 PM EST Daniel Mackey MD BLOOD BANK TEST ORDERABLES E dited Result - Final Performing Organization Address [facility]/ZIP Co de Phone Number [facility]
[address] [place] [address], * CT Angiogram Abdomen Pelvis (08/19/2025 3:47 PM EST) Anatomical Region Laterality Modality Abdomen, Vascular, Pelvis N/A Comput ed Tomography 08/19/2025 4:00 PM EST Impressions 08/19/2025 4:24 PM EST Impression: 1. Negative for aortic dissection. 2. No acute traumatic findings in the chest, abdomen, or pelvis. 3. Several groundglass pulmonary nodules largest 18 mm in the left upper lobe. These are nonspecific, correlation with any prior outside imaging recommended if available, otherwise consider 6-month follow-up. 4. Prostatomegaly, cholelithiasis and additional incidental findings above. Chronic findings above. Electronically Signed: Dion Rai MD 08/19/2025 4:24 PM EST Workstation ID: [id number] Narrative 08/19/2025 4:[address] ANGIOGRAM CHEST, CT ANGIOGRAM ABDOMEN PELVIS Date of Exam: 08/19/2025 3:28 PM EST Indication: Suspect Dissection. Comparison: None available. Technique: CTA of the chest was performed after the uneventful intravenous administration of iodinated contrast. Reconstructed coronal and sagittal images were also obtained. In addition, a 3-D volume rendered image was created for interpretation. Automated exposure control and iterative reconstruction methods were used. Findings: Chest: Initial noncontrast imaging demonstrates no aortic intramural hematoma. Hypodense cardiac blood pool compatible with anemia. Left-sided AICD noted. 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 Subsequently postcontrast images obtained. Normal opacification of the aortic arch without aortic dissection. Aortic arch branch vasculature patent. No pericardial or pleural effusion. Negative for mediastinal, hilar, or axillary adenopathy. No pulmonary embolus. Moderate atherosclerotic calcification of the aortic arch and descending thoracic aorta. Negative for pneumothorax. The trachea and mainstem bronchi are patent. No hemothorax. No consolidation or findings to indicate pneumonia. There are few scattered areas of groundglass opacity for example in the right upper lobe measuring 16 mm (5/39 and the right lower lobe measuring 9 mm (5/51). Groundglass area of nodularity in the left upper lobe measures 18 mm (5/22). No suspicious solid pulmonary nodule. Thoracic vertebral bodies are maintained in height. The posterior spinous processes are intact. No aggressive osseous lesion or acute fracture. Abdomen and pelvis: Initial noncontrast imaging of the abdomen and pelvis demonstrates no renal calculus or ureteral calculus. Pelvic calcifications compatible with phleboliths. Small calcified gallstones. Subsequently postcontrast images were obtained. Liver is normal in size and contour. Reflux of contrast to the hepatic veins likely related to right heart insufficiency. Normal caliber common bile duct. No pericholecystic inflammation. Normal spleen. Normal adrenal glands. No abnormality of the pancreas. There is a large exophytic cyst at the lateral aspect of the right kidney which measures up to 10 cm. Negative for hydronephrosis or hydroureter. Bladder unremarkable. Prostatomegaly with the prostate measuring 6 cm in transverse diameter. Negative for pneumoperitoneum. No bowel obstruction. Colonic diverticulosis without diverticulitis. No findings of appendicitis. Moderate atherosclerotic calcification of the abdominal aorta. The celiac artery is patent. The superior mesenteric artery is patent. Bilateral renal arteries are patent. Moderate atherosclerotic calcification of the proximal right renal artery. The inferior mesenteric artery is patent. Negative for abdominal aortic aneurysm or dissection. The bilateral common and external iliac arteries are patent. Left and right internal iliac branches are diminutive., Femoral arteries patent bilaterally. Visualized proximal portions of the superficial femoral and deep profunda femoral arteries are patent. The lumbar vertebral bodies are maintained in height. No aggressive osseous lesion or acute fracture. The posterior spinous processes are intact. The transverse spinous processes are intact. Moderate bilateral hip osteoarthritis. No pelvic fracture. Procedure Note Mouser, Dion Goins MD - 08/19/2025 CT ANGIOGRAM CHEST, CT ANGIOGRAM ABDOMEN PELVIS Date of Exam: 08/19/2025 3:28 PM EST Indication: Suspect Dissection. Comparison: None available. Technique: CTA of the chest was performed after the uneventful intravenousadministration of iodinated contrast. Reconstructed coronal and sagittalimages were also obtained. In addition, a 3-D volume rendered image wascreated for interpretation. Automated exposure control and iterative reconstruction methods wereused. Findings: Chest: Initial noncontrast imaging demonstrates no aortic intramural hematoma.Hypodense cardiac blood pool compatible with anemia. Left-sided AICDnoted. Coronary calcifications with postsurgical changes of priorsternotomy and CABG. Subsequently postcontrast images obtained. Normal opacification of the aortic arch without aortic dissection. Aorticarch branch vasculature patent. No pericardial or pleural effusion.Negative for mediastinal, hilar, or axillary adenopathy. No pulmonaryembolus. Moderate atherosclerotic calcification of the aortic arch and descending thoracic aorta. Negative for pneumothorax. The trachea and mainstem bronchi are patent. Nohemothorax. No consolidation or findings to indicate pneumonia. There arefew scattered areas of groundglass opacity for example in the right upperlobe measuring 16 mm (5/39 and the right lower lobe measuring 9 mm (5/51). Groundglass area of nodularityin the left upper lobe measures 18 mm (5/22). No suspicious solidpulmonary nodule. Thoracic vertebral bodies are maintained in height. The posterior spinousprocesses are intact. No aggressive osseous lesion or acute fracture. Abdomen and pelvis: Initial noncontrast imaging of the abdomen and pelvis demonstrates norenal calculus or ureteral calculus. Pelvic calcifications compatible withphleboliths. Small calcified gallstones. Subsequently postcontrast imageswere obtained. Liver is normal in size and contour. 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 Normal caliber commonbile duct. No pericholecystic inflammation. Normal spleen. Normal adrenalglands. No abnormality of the pancreas. There is a large exophytic cyst at the lateral aspect of the right kidneywhich measures up to 10 cm. Negative for hydronephrosis or hydroureter.Bladder unremarkable. Prostatomegaly with the prostate measuring 6 cm intransverse diameter. Negative for pneumoperitoneum. No bowel obstruction. Colonicdiverticulosis without diverticulitis. No findings of appendicitis. Moderate atherosclerotic calcification of the abdominal aorta. The celiacartery is patent. The superior mesenteric artery is patent. Bilateralrenal arteries are patent. Moderate atherosclerotic calcification of theproximal right renal artery. The inferior mesenteric artery is patent. Negative for abdominal aorticaneurysm or dissection. The bilateral common and external iliac arteriesare patent. Left and right internal iliac branches are diminutive.,Femoral arteries patent bilaterally. Visualized proximal portions of the superficial femoral and deep profundafemoral arteries are patent. The lumbar vertebral bodies are maintained in height. No aggressiveosseous lesion or acute fracture. The posterior spinous processes areintact. The transverse spinous processes are intact. Moderate bilateralhip osteoarthritis. No pelvic fracture. IMPRESSION: Impression: 1. Negative for aortic dissection. 2. No acute traumatic findings in the chest, abdomen, or pelvis. 3. Several groundglass pulmonary nodules largest 18 mm in the left upperlobe. These are nonspecific, correlation with any prior outside imagingrecommended if available, otherwise consider 6-month follow-up. 4. Prostatomegaly, cholelithiasis and additional incidental findingsabove. Chronic findings above. Electronically Signed: Dion Rai MD 08/19/2025 4:24 PM EST Workstation ID: [id number] us Daniel Mackey MD IMG CT ORDERABLES Final Resu lt * CT Angiogram Chest (08/19/2025 3:47 PM EST) Anatomical Region Laterality Modality Chest, Vascular N/A Computed Tomogra phy 08/19/2025 4:00 PM EST Impressions 08/19/2025 4:24 PM EST Impression: 1. Negative for aortic dissection. 2. No acute traumatic findings in the chest, abdomen, or pelvis. 3. Several groundglass pulmonary nodules largest 18 mm in the left upper lobe. These are nonspecific, correlation with any prior outside imaging recommended if available, otherwise consider 6-month follow-up. 4. Prostatomegaly, cholelithiasis and additional incidental findings above. Chronic findings above. Electronically Signed: Dion Rai MD 08/19/2025 4:24 PM EST Workstation ID: [id number] Narrative 08/19/2025 4:[address] ANGIOGRAM CHEST, CT ANGIOGRAM ABDOMEN PELVIS Date of Exam: 08/19/2025 3:28 PM EST Indication: Suspect Dissection. Comparison: None available. Technique: CTA of the chest was performed after the uneventful intravenous administration of iodinated contrast. Reconstructed coronal and sagittal images were also obtained. In addition, a 3-D volume rendered image was created for interpretation. Automated exposure control and iterative reconstruction methods were used. Findings: Chest: Initial noncontrast imaging demonstrates no aortic intramural hematoma. Hypodense cardiac blood pool compatible with anemia. Left-sided AICD noted. 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 Subsequently postcontrast images obtained. Normal opacification of the aortic arch without aortic dissection. Aortic arch branch vasculature patent. No pericardial or pleural effusion. Negative for mediastinal, hilar, or axillary adenopathy. No pulmonary embolus. Moderate atherosclerotic calcification of the aortic arch and descending thoracic aorta. Negative for pneumothorax. The trachea and mainstem bronchi are patent. No hemothorax. No consolidation or findings to indicate pneumonia. There are few scattered areas of groundglass opacity for example in the right upper lobe measuring 16 mm (5/39 and the right lower lobe measuring 9 mm (5/51). Groundglass area of nodularity in the left upper lobe measures 18 mm (5/22). No suspicious solid pulmonary nodule. Thoracic vertebral bodies are maintained in height. The posterior spinous processes are intact. No aggressive osseous lesion or acute fracture. Abdomen and pelvis: Initial noncontrast imaging of the abdomen and pelvis demonstrates no renal calculus or ureteral calculus. Pelvic calcifications compatible with phleboliths. Small calcified gallstones. Subsequently postcontrast images were obtained. Liver is normal in size and contour. Reflux of contrast to the hepatic veins likely related to right heart insufficiency. Normal caliber common bile duct. No pericholecystic inflammation. Normal spleen. Normal adrenal glands. No abnormality of the pancreas. There is a large exophytic cyst at the lateral aspect of the right kidney which measures up to 10 cm. Negative for hydronephrosis or hydroureter. Bladder unremarkable. Prostatomegaly with the prostate measuring 6 cm in transverse diameter. Negative for pneumoperitoneum. No bowel obstruction. Colonic diverticulosis without diverticulitis. No findings of appendicitis. Moderate atherosclerotic calcification of the abdominal aorta. The celiac artery is patent. The superior mesenteric artery is patent. Bilateral renal arteries are patent. Moderate atherosclerotic calcification of the proximal right renal artery. The inferior mesenteric artery is patent. Negative for abdominal aortic aneurysm or dissection. The bilateral common and external iliac arteries are patent. Left and right internal iliac branches are diminutive., Femoral arteries patent bilaterally. Visualized proximal portions of the superficial femoral and deep profunda femoral arteries are patent. The lumbar vertebral bodies are maintained in height. No aggressive osseous lesion or acute fracture. The posterior spinous processes are intact. The transverse spinous processes are intact. Moderate bilateral hip osteoarthritis. No pelvic fracture. Procedure Note Mouser, Dion Goins MD - 08/19/2025 CT ANGIOGRAM CHEST, CT ANGIOGRAM ABDOMEN PELVIS Date of Exam: 08/19/2025 3:28 PM EST Indication: Suspect Dissection. Comparison: None available. Technique: CTA of the chest was performed after the uneventful intravenousadministration of iodinated contrast. Reconstructed coronal and sagittalimages were also obtained. In addition, a 3-D volume rendered image wascreated for interpretation. Automated exposure control and iterative reconstruction methods wereused. Findings: Chest: Initial noncontrast imaging demonstrates no aortic intramural hematoma.Hypodense cardiac blood pool compatible with anemia. Left-sided AICDnoted. Coronary calcifications with postsurgical changes of priorsternotomy and CABG. Subsequently postcontrast images obtained. Normal opacification of the aortic arch without aortic dissection. Aorticarch branch vasculature patent. No pericardial or pleural effusion.Negative for mediastinal, hilar, or axillary adenopathy. No pulmonaryembolus. Moderate atherosclerotic calcification of the aortic arch and descending thoracic aorta. Negative for pneumothorax. The trachea and mainstem bronchi are patent. Nohemothorax. No consolidation or findings to indicate pneumonia. There arefew scattered areas of groundglass opacity for example in the right upperlobe measuring 16 mm (5/39 and the right lower lobe measuring 9 mm (5/51). Groundglass area of nodularityin the left upper lobe measures 18 mm (5/22). No suspicious solidpulmonary nodule. Thoracic vertebral bodies are maintained in height. The posterior spinousprocesses are intact. No aggressive osseous lesion or acute fracture. Abdomen and pelvis: Initial noncontrast imaging of the abdomen and pelvis demonstrates norenal calculus or ureteral calculus. Pelvic calcifications compatible withphleboliths. Small calcified gallstones. Subsequently postcontrast imageswere obtained. Liver is normal in size and contour. 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 Normal caliber commonbile duct. No pericholecystic inflammation. Normal spleen. Normal adrenalglands. No abnormality of the pancreas. There is a large exophytic cyst at the lateral aspect of the right kidneywhich measures up to 10 cm. Negative for hydronephrosis or hydroureter.Bladder unremarkable. Prostatomegaly with the prostate measuring 6 cm intransverse diameter. Negative for pneumoperitoneum. No bowel obstruction. Colonicdiverticulosis without diverticulitis. No findings of appendicitis. Moderate atherosclerotic calcification of the abdominal aorta. The celiacartery is patent. The superior mesenteric artery is patent. Bilateralrenal arteries are patent. Moderate atherosclerotic calcification of theproximal right renal artery. The inferior mesenteric artery is patent. Negative for abdominal aorticaneurysm or dissection. The bilateral common and external iliac arteriesare patent. Left and right internal iliac branches are diminutive.,Femoral arteries patent bilaterally. Visualized proximal portions of the superficial femoral and deep profundafemoral arteries are patent. The lumbar vertebral bodies are maintained in height. No aggressiveosseous lesion or acute fracture. The posterior spinous processes areintact. The transverse spinous processes are intact. Moderate bilateralhip osteoarthritis. No pelvic fracture. IMPRESSION: Impression: 1. Negative for aortic dissection. 2. No acute traumatic findings in the chest, abdomen, or pelvis. 3. Several groundglass pulmonary nodules largest 18 mm in the left upperlobe. These are nonspecific, correlation with any prior outside imagingrecommended if available, otherwise consider 6-month follow-up. 4. Prostatomegaly, cholelithiasis and additional incidental findingsabove. Chronic findings above. Electronically Signed: Dion Rai MD 08/19/2025 4:24 PM EST Workstation ID: [id number] us Daniel Mackey MD IMG CT ORDERABLES Final Resu lt * CT Cervical Spine Without Contrast (08/19/2025 3:47 PM EST) Anatomical Region Laterality Modality C-spine N/A Computed Tomogra phy 08/19/2025 3:49 PM EST Impressions 08/19/2025 4:00 PM EST Impression: HEAD: 1.No intracranial hemorrhage or acute intracranial abnormality. 2.Generalized cerebral atrophy with white matter findings of chronic microvascular disease. CERVICAL SPINE: 3.Negative for cervical spine fracture. 4.Multilevel cervical spondylosis above. Electronically Signed: Dion Rai MD 08/19/2025 4:00 PM EST Workstation ID: [id number] Narrative 08/19/2025 4:[address] HEAD WO CONTRAST, CT CERVICAL SPINE WO CONTRAST Date of Exam: 08/19/2025 3:36 PM EST Indication: fall, head injury. Comparison: None available. Technique: Axial CT images were obtained of the head and cervical spine without contrast administration. Automated exposure control and iterative construction methods were used. Findings: Head: Generalized cerebral volume loss. Dilatation of the lateral ventricles most compatible with central atrophy. Mild white matter findings suggesting chronic microvascular disease. No intraventricular hemorrhage. No abnormal extra-axial fluid collection. The posterior fossa is without acute abnormality. The globes are intact and symmetric. There is no retro-orbital abnormality. The mastoid air cells are well-aerated. Negative for calvarial fracture. Visualized sinuses are clear. Cervical spine: Straightening of the cervical lordosis. Negative for acute fracture. Severe disc narrowing at C4-5, C5-6 and C6-7. Posterior spinous processes are intact. No locked or perched facet. The dens is intact. The occipital condyles are intact bilaterally. Lateral masses of C1 are normally aligned on C2. Small posterior disc osteophytes noted at C4-5, C5-6 and C6-7 contribute to mild canal stenosis. Uncovertebral spurring and facet contributes to moderate bilateral foraminal stenosis at C4-5, C5-6 and C6-7. The included lung apices are clear. No apical pneumothorax. Bilateral carotid bulb atherosclerotic calcifications. Noncontrast soft tissues of the neck are without acute abnormality. Procedure Note Mouser, Dion Goins MD - 08/19/2025 CT HEAD WO CONTRAST, CT CERVICAL SPINE WO CONTRAST Date of Exam: 08/19/2025 3:36 PM EST Indication: fall, head injury. Comparison: None available. Technique: Axial CT images were obtained of the head and cervical spinewithout contrast administration. Automated exposure control and iterativeconstruction methods were used. Findings: Head: Generalized cerebral volume loss. Dilatation of the lateral ventriclesmost compatible with central atrophy. Mild white matter findingssuggesting chronic microvascular disease. No intraventricular hemorrhage.No abnormal extra-axial fluid collection. The posterior fossa is without acute abnormality. The globes are intactand symmetric. There is no retro-orbital abnormality. The mastoid aircells are well-aerated. Negative for calvarial fracture. Visualizedsinuses are clear. Cervical spine: Straightening of the cervical lordosis. Negative for acute fracture.Severe disc narrowing at C4-5, C5-6 and C6-7. Posterior spinous processesare intact. No locked or perched facet. The dens is intact. The occipitalcondyles are intact bilaterally. Lateral masses of C1 are normally aligned on C2. Small posterior disc osteophytes noted at C4-5, C5-6 and C6-7 contributeto mild canal stenosis. Uncovertebral spurring and facet contributes tomoderate bilateral foraminal stenosis at C4-5, C5-6 and C6-7. The includedlung apices are clear. No apical pneumothorax. Bilateral carotid bulb atherosclerotic calcifications.Noncontrast soft tissues of the neck are without acute abnormality. IMPRESSION: Impression: HEAD: 1.No intracranial hemorrhage or acute intracranial abnormality. 2.Generalized cerebral atrophy with white matter findings of chronicmicrovascular disease. CERVICAL SPINE: 3.Negative for cervical spine fracture. 4.Multilevel cervical spondylosis above. Electronically Signed: Dion Rai MD 08/19/2025 4:00 PM EST Workstation ID: [id number] us Daniel Mackey MD IMG CT ORDERABLES Final Resu lt * CT Head Without Contrast (08/19/2025 3:47 PM EST) Anatomical Region Laterality Modality Head N/A Computed Tomogra phy 08/19/2025 3:49 PM EST Impressions 08/19/2025 4:00 PM EST Impression: HEAD: 1.No intracranial hemorrhage or acute intracranial abnormality. 2.Generalized cerebral atrophy with white matter findings of chronic microvascular disease. CERVICAL SPINE: 3.Negative for cervical spine fracture. 4.Multilevel cervical spondylosis above. Electronically Signed: Dion Rai MD 08/19/2025 4:00 PM EST Workstation ID: [id number] Narrative 08/19/2025 4:[address] HEAD WO CONTRAST, CT CERVICAL SPINE WO CONTRAST Date of Exam: 08/19/2025 3:36 PM EST Indication: fall, head injury. Comparison: None available. Technique: Axial CT images were obtained of the head and cervical spine without contrast administration. Automated exposure control and iterative construction methods were used. Findings: Head: Generalized cerebral volume loss. Dilatation of the lateral ventricles most compatible with central atrophy. Mild white matter findings suggesting chronic microvascular disease. No intraventricular hemorrhage. No abnormal extra-axial fluid collection. The posterior fossa is without acute abnormality. The globes are intact and symmetric. There is no retro-orbital abnormality. The mastoid air cells are well-aerated. Negative for calvarial fracture. Visualized sinuses are clear. Cervical spine: Straightening of the cervical lordosis. Negative for acute fracture. Severe disc narrowing at C4-5, C5-6 and C6-7. Posterior spinous processes are intact. No locked or perched facet. The dens is intact. The occipital condyles are intact bilaterally. Lateral masses of C1 are normally aligned on C2. Small posterior disc osteophytes noted at C4-5, C5-6 and C6-7 contribute to mild canal stenosis. Uncovertebral spurring and facet contributes to moderate bilateral foraminal stenosis at C4-5, C5-6 and C6-7. The included lung apices are clear. No apical pneumothorax. Bilateral carotid bulb atherosclerotic calcifications. Noncontrast soft tissues of the neck are without acute abnormality. Procedure Note MouserDion MD - 08/19/2025 CT HEAD WO CONTRAST, CT CERVICAL SPINE WO CONTRAST Date of Exam: 08/19/2025 3:36 PM EST Indication: fall, head injury. Comparison: None available. Technique: Axial CT images were obtained of the head and cervical spinewithout contrast administration. Automated exposure control and iterativeconstruction methods were used. Findings: Head: Generalized cerebral volume loss. Dilatation of the lateral ventriclesmost compatible with central atrophy. Mild white matter findingssuggesting chronic microvascular disease. No intraventricular hemorrhage.No abnormal extra-axial fluid collection. The posterior fossa is without acute abnormality. The globes are intactand symmetric. There is no retro-orbital abnormality. The mastoid aircells are well-aerated. Negative for calvarial fracture. Visualizedsinuses are clear. Cervical spine: Straightening of the cervical lordosis. Negative for acute fracture.Severe disc narrowing at C4-5, C5-6 and C6-7. Posterior spinous processesare intact. No locked or perched facet. The dens is intact. The occipitalcondyles are intact bilaterally. Lateral masses of C1 are normally aligned on C2. Small posterior disc osteophytes noted at C4-5, C5-6 and C6-7 contributeto mild canal stenosis. Uncovertebral spurring and facet contributes tomoderate bilateral foraminal stenosis at C4-5, C5-6 and C6-7. The includedlung apices are clear. No apical pneumothorax. Bilateral carotid bulb atherosclerotic calcifications.Noncontrast soft tissues of the neck are without acute abnormality. IMPRESSION: Impression: HEAD: 1.No intracranial hemorrhage or acute intracranial abnormality. 2.Generalized cerebral atrophy with white matter findings of chronicmicrovascular disease. CERVICAL SPINE: 3.Negative for cervical spine fracture. 4.Multilevel cervical spondylosis above. Electronically Signed: iDon Rai MD 08/19/2025 4:00 PM EST Workstation ID: [id number] us Daniel Mackey MD IMG CT ORDERABLES Final Resu lt * (ABNORMAL) POC Glucose Once (08/19/2025 3:19 PM EST) Glucose 138(H) 70 - 130 mg/dL 08/19/2025 3:21 PM EST [facility] Comment:Serial Number: [id number]: [id number] Nova Comment 1 Follow unit protocol 08/19/2025 3:21 PM EST [facility] Blood 08/19/2025 3:19 PM EST 08/19/2025 3:21 PM EST us Daniel Mackey MD POINT OF CARE TEST ORDERABLE S Final Result Performing Organization Address [facility] Co de Phone Number [facility]
[address] [place] [address], * POC Creatinine (08/19/2025 3:16 PM EST) Creatinine 1.20 0.60 - 1.30 mg/dL 08/19/2025 3:33 PM EST [facility] Comment:Serial Number: [id number] 1Operator: [id number] Blood 08/19/2025 3:16 PM EST 08/19/2025 3:33 PM EST us Daniel Mackey MD POINT OF CARE TEST ORDERABLE S Final Result Performing Organization Address City/[facility] Co de Phone Number [facility]
[address] [place] [address], * (ABNORMAL) Protime-INR (08/19/2025 3:08 PM EST) Protime 23.8(H) 12.2 - 15.3 Seconds 08/19/2025 6:02 PM EST [facility] INR 1.98(H) 0.89 - 1.12 08/19/2025 6:02 PM EST [facility] Blood Venipuncture / Unknown 08/19/2025 3:08 PM EST 08/19/2025 3:20 PM EST Nancy Vail MD LAB BLOOD ORDERABLES Fin al Result [facility]
[address] [place] [address], * Procalcitonin (08/19/2025 3:08 PM EST) Pathologist [facility] [place] Procalcitonin 0.05 0.00 - 0.25 ng/mL 08/19/2025 7:35 PM EST [facility] Blood Venipuncture / Unknown 08/19/2025 3:08 PM EST 08/19/2025 3:20 PM EST Narrative [facility] - 08/19/2025 7:35 PM EST As a Marker for Sepsis (Non-Neonates): 1. <0.5 ng/mL represents a low risk of severe sepsis and/or septic shock. 2. >2 ng/mL represents a high risk of severe sepsis and/or septic shock. As a Marker for Lower Respiratory Tract Infections that require antibiotic therapy: PCT on Admission Antibiotic Therapy 6-12 Hrs later >0.5 Strongly Recommended >0.25 - <0.5 Recommended 0.1 - 0.25 Discouraged Remeasure/reassess PCT <0.1 Strongly Discouraged Remeasure/reassess PCT As 28 day mortality risk marker: Change in Procalcitonin Result (>80% or <=80%) if Day 0 (or Day 1) and Day 4 values are available. Refer to http://www.cingmo-bwb-pmkncnzlfo.com Change in PCT <=80% A decrease of PCT levels below or equal to 80% defines a positive change in PCT test result representing a higher risk for 28-day all-cause mortality of patients diagnosed with severe sepsis for septic shock. Change in PCT >80% A decrease of PCT levels of more than 80% defines a negative change in PCT result representing a lower risk for 28-day all-cause mortality of patients diagnosed with severe sepsis or septic shock. Daniel Mackey MD LAB BLOOD ORDERABLES Final R esult Performing Organization Address [facility] de Phone Number [facility]
[address] [place] [address], * (ABNORMAL) Lactic Acid, Plasma (08/19/2025 3:08 PM EST) [facility] Lactate 3.5(HH) 0.5 - 2.0 mmol/L 08/19/2025 6:23 PM EST [facility] Comment:Falsely depressed re sults may occur on samples drawn from patients receiving N-Acetylcysteine (NAC) or Metamizole. Blood Venipuncture / Unknown 08/19/2025 3:08 PM EST 08/19/2025 3:20 PM EST Daniel Mackey MD LAB BLOOD ORDERABLES Final R esult Performing Organization Address [facility] de Phone Number [facility]
[address] [place] [address], * (ABNORMAL) CBC Auto Differential (08/19/2025 3:08 PM EST) [facility] WBC 7.47 3.40 - 10.80 10*3/mm3 08/19/2025 3:26 PM EST [facility] RBC 2.54(L) 4.14 - 5.80 10*6/mm3 08/19/2025 3:26 PM [facility] Hemoglobin 6.8(LL) 13.0 - 17.7 g/dL 08/19/2025 3:26 PM [facility] Hematocrit 22.1(L) 37.5 - 51.0 % 08/19/2025 3:26 PM [facility] MCV 87.0 79.0 - 97.0 fL 08/19/2025 3:26 PM [facility] MCH 26.8 26.6 - 33.0 pg 08/19/2025 3:26 PM [facility] MCHC 30.8(L) 31.5 - 35.7 g/dL 08/19/2025 3:26 PM [facility] RDW 14.4 12.3 - 15.4 % 08/19/2025 3:26 PM [facility] RDW-SD 45.7 37.0 - 54.0 fl 08/19/2025 3:26 PM [facility] MPV 12.2(H) 6.0 - 12.0 fL 08/19/2025 3:26 PM [facility] Platelets 201 140 - 450 10*3/mm3 08/19/2025 3:26 PM [facility] Neutrophil % 79.4(H) 42.7 - 76.0 % 08/19/2025 3:26 PM [facility] Lymphocyte % 9.9(L) 19.6 - 45.3 % 08/19/2025 3:26 PM [facility] Monocyte % 10.0 5.0 - 12.0 % 08/19/2025 3:26 PM [facility] Eosinophil % 0.3 0.3 - 6.2 % 08/19/2025 3:26 PM [facility] Basophil % 0.1 0.0 - 1.5 % 08/19/2025 3:26 PM [facility] Immature Grans % 0.3 0.0 - 0.5 % 08/19/2025 3:26 PM [facility] Neutrophils, Absolute 5.93 1.70 - 7.00 10*3/mm3 08/19/2025 3:26 PM EST [facility] Lymphocytes, Absolute 0.74 0.70 - 3.10 10*3/mm3 08/19/2025 3:26 PM EST [facility] Monocytes, Absolute 0.75 0.10 - 0.90 10*3/mm3 08/19/2025 3:26 PM EST [facility] Eosinophils, Absolute 0.02 0.00 - 0.40 10*3/mm3 08/19/2025 3:26 PM EST [facility] Basophils, Absolute 0.01 0.00 - 0.20 10*3/mm3 08/19/2025 3:26 PM EST [facility] Immature Grans, Absolute 0.02 0.00 - 0.05 10*3/mm3 08/19/2025 3:26 PM [facility] nRBC 0.3(H) 0.0 - 0.2 /100 WBC 08/19/2025 3:26 PM EST [facility] Blood Venipuncture / Unknown 08/19/2025 3:08 PM EST 08/19/2025 3:20 PM EST Daniel Mackey MD LAB BLOOD ORDERABLES Final R esult [facility]
[address] [place] [address], * Light Blue Top (08/19/2025 3:08 PM EST) Extra Tube Hold for add-ons. 08/19/2025 3:31 PM EST [facility] Comment:Auto resulted Blood Venipuncture / Unknown 08/19/2025 3:08 PM EST 08/19/2025 3:20 PM EST us Daniel Mackey MD LAB BLOOD ORDER ONLY Final R esult [facility]
[address] [place] [address], * Hwang Top (08/19/2025 3:08 PM EST) Extra Tube Hold for add-ons. 08/19/2025 3:31 PM EST [facility] Comment:Auto resulted. Blood Venipuncture / Unknown 08/19/2025 3:08 PM EST 08/19/2025 3:20 PM EST Daniel Mackey MD LAB BLOOD ORDER ONLY Final R esult Performing Organization Address City/[facility]/ZIP Co de Phone Number [facility]
[address] [place] [address], * Gold Top - SST (08/19/2025 3:08 PM EST) Extra Tube Hold for add-ons. 08/19/2025 3:31 PM EST [facility] Comment:Auto resulted. Blood Venipuncture / Unknown 08/19/2025 3:08 PM EST 08/19/2025 3:20 PM EST Daniel Mackey MD LAB BLOOD ORDER ONLY Final R esult Performing Organization Address City/[facility]/ZIP Co de Phone Number [facility]
[address] [place] [address], * Lavender Top (08/19/2025 3:08 PM EST) Extra Tube hold for add-on 08/19/2025 3:31 PM EST [facility] Comment:Auto resulted Blood Venipuncture / Unknown 08/19/2025 3:08 PM EST 08/19/2025 3:20 PM EST us Daniel aMckey MD LAB BLOOD ORDER ONLY Final R esult [facility]
[address] [place] [address], * Green Top (Gel) (08/19/2025 3:08 PM EST) Pathologist [facility] [place] Extra Tube Hold for add-ons. 08/19/2025 3:31 PM EST [facility] Comment:Auto resulted. Blood Venipuncture / Unknown 08/19/2025 3:08 PM EST 08/19/2025 3:20 PM EST us Daniel Mackey MD LAB BLOOD ORDER ONLY Final R esult Performing Organization Address [facility] Phone Number [facility]
[address] [place] [address], * (ABNORMAL) High Sensitivity Troponin T (08/19/2025 3:08 PM EST) Pathologist [facility] [place] HS Troponin T 25(H) <22 ng/L 08/19/2025 3:41 PM EST [facility] Blood Venipuncture / Unknown 08/19/2025 3:08 PM EST 08/19/2025 3:20 PM EST Narrative [facility] - 08/19/2025 3:41 PM EST High Sensitive Troponin T Reference Range: <14.0 ng/L- Negative Female for AMI <22.0 ng/L- Negative Male for AMI >=14 - Abnormal Female indicating possible myocardial injury. >=22 - Abnormal Male indicating possible myocardial injury. Clinicians would have to utilize clinical acumen, EKG, Troponin, and serial changes to determine if it is an Acute Myocardial Infarction or myocardial injury due to an underlying chronic condition. us Daniel Mackey MD LAB BLOOD ORDERABLES Final R esult Performing Organization Address [facility] Co de Phone Number [facility]
[address] [place] [address], * Magnesium (08/19/2025 3:08 PM EST) Magnesium 2.3 1.6 - 2.4 mg/dL 08/19/2025 3:43 PM EST [facility] Blood Venipuncture / Unknown 08/19/2025 3:08 PM EST 08/19/2025 3:20 PM EST Daniel Mackey MD LAB BLOOD ORDERABLES Final R esult [facility]
[address] [place] [address], * (ABNORMAL) Comprehensive Metabolic Panel (08/19/2025 3:08 PM EST) Pathologist [facility] [place] Glucose 165(H) 65 - 99 mg/dL 08/19/2025 3:43 PM EST [facility] BUN 27.2(H) 8.0 - 23.0 mg/dL 08/19/2025 3:43 PM EST [facility] Creatinine 1.23 0.76 - 1.27 mg/dL 08/19/2025 3:43 PM EST [facility] Sodium 141 136 - 145 mmol/L 08/19/2025 3:43 PM EST [facility] Potassium 5.4(H) 3.5 - 5.2 mmol/L 08/19/2025 3:43 PM EST [facility] Comment:Specimen hemolyzed. Result may be falsely elevated. Chloride 109(H) 98 - 107 mmol/L 08/19/2025 3:43 PM EST [facility] CO2 20.1(L) 22.0 - 29.0 mmol/L 08/19/2025 3:43 PM EST [facility] Calcium 9.1 8.6 - 10.5 mg/dL 08/19/2025 3:43 PM EST [facility] Total Protein 5.6(L) 6.0 - 8.5 g/dL 08/19/2025 3:43 PM EST [facility] Albumin 3.8 3.5 - 5.2 g/dL 08/19/2025 3:43 PM [facility] ALT (SGPT) 9 1 - 41 U/L 08/19/2025 3:43 PM [facility] AST (SGOT) 20 1 - 40 U/L 08/19/2025 3:43 PM [facility] Comment:Specimen hemolyzed. Result may be falsely elevated. Alkaline Phosphatase 116 39 - 117 U/L 08/19/2025 3:43 PM EST [facility] Total Bilirubin 0.9 0.0 - 1.2 mg/dL 08/19/2025 3:43 PM [facility] Globulin 1.8 gm/dL 08/19/2025 3:43 PM [facility] Comment:Calculated Result A/G Ratio 2.1 g/dL 08/19/2025 3:43 PM [facility] BUN/Creatinine Ratio 22.1 7.0 - 25.0 08/19/2025 3:43 PM [facility] Anion Gap 11.9 5.0 - 15.0 mmol/L 08/19/2025 3:43 PM [facility] eGFR 56.8(L) >60.0 mL/min/1.7 3 08/19/2025 3:43 PM [facility] Blood Venipuncture / Unknown 08/19/2025 3:08 PM EST 08/19/2025 3:20 PM EST [facility] - 08/19/2025 3:43 PM EST GFR Categories in Chronic Kidney Disease (CKD) GFR Category GFR (mL/min/1.73) Interpretation G1 90 or greater Normal or high (1) G2 60-89 Mild decrease (1) G3a 45-59 Mild to moderate decrease G3b 30-44 Moderate to severe decrease G4 15-29 Severe decrease G5 14 or less Kidney failure (1)In the absence of evidence of kidney disease, neither GFR category G1 or G2 fulfill the criteria for CKD. eGFR calculation 2020 CKD-EPI creatinine equation, which does not include race as a factor Daniel Mackey MD LAB BLOOD ORDERABLES Final R esult [facility]
[address] [id number], * ECG 12 Lead Syncope (08/19/2025 3:01 PM EST) QT Interval 380 ms ECG QTC Interval 454 ms ECG 08/19/2025 3:01 PM EST 08/23/2025 10:38 PM EST Narrative ECG - 08/23/2025 10:38 PM EST Test Reason : Syncope Blood Pressure : */* mmHG Vent. Rate : 86 BPM Atrial Rate : 75 BPM P-R Int : * ms QRS Dur : 76 ms QT Int : 380 ms P-R-T Axes : * 21 250 degrees QTcB Int : 454 ms Atrial fibrillation with occasional ventricular-paced complexes ST & T wave abnormality, consider inferior ischemia ST & T wave abnormality, consider anterolateral ischemia Abnormal ECG No previous ECGs available Confirmed by DANIEL MACKEY ([id number]) on 08/23/2025 10:38:24 PM Referred By: NAHUM EDGAR Confirmed By: DANIEL MACKEY Procedure Note Daniel Mackey MD - 08/23/2025 Test Reason : Syncope Blood Pressure : */* mmHG Vent. Rate : 86 BPM Atrial Rate : 75 BPM P-R Int : * ms QRS Dur : 76 ms QT Int : 380 ms P-R-T Axes : * 21 250 degrees QTcB Int : 454 ms Atrial fibrillation with occasional ventricular-paced complexes ST & T wave abnormality, consider inferior ischemia ST & T wave abnormality, consider anterolateral ischemia Abnormal ECG No previous ECGs available Confirmed by DANIEL MACKEY ([id number]) on 08/23/2025 10:38:24 PM Referred By: NAHUM EDGAR Confirmed By: DANIEL MACKEY Daniel Mackey MD ECG ORDERABLES Final Result ECG * Telemetry Scan (08/19/2025 3:01 PM EST) [facility] ECG ORDERABLES Final Result documented in this encounter Visit Diagnoses Diagnosis GI bleed- Primary Unspecified, hemorrhage of gastrointestinal tract Acute GI bleeding Unspecified, hemorrhage of gastrointestinal tract Acute blood loss anemia Acute posthemorrhagic anemia Hypotension, unspecified hypotension type Anticoagulated Encounter for long-term (current) use of anticoagulants documented in this encounter Admitting Diagnoses Diagnosis GI bleed Unspecified, hemorrhage of gastrointestinal tract documented in this encounter Administered Medications Inactive Administered Medications - up to 3 most recent administrations Medication Order MAR Action Action Date Dose Rate Site acetaminophen (TYLENOL) tablet 650 mg 650 mg, Oral, Every 4 Hours PRN, Fever, fever greater than 100.4 F or headache, Starting on Sat08/20/25 at 0142, If given for fever, use fever parameter: fever greater than 100.4 F Based on patient request - if ordered for moderate or severe pain, provider allows for administration of a medication prescribed for a lower pain scale. Do not exceed 4 grams of acetaminophen in a 24 hr period. Max dose of 2gm for AST/ALT greater than 120 units/L. 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 New Bag 08/19/2025 9:09 PM EST 500 mL apixaban (ELIQUIS) tablet 5 mg 5 mg, Oral, Every 12 Hours Scheduled, First dose on Sat08/24/25 at 1000, Tablet may be crushed and suspended in 60 mL of water or D5W and immediately delivered via NG tube., Indications: Atrial Fibrillation - requiring full anticoagulationIndications:Atrial Fibrillation - requiring full anticoagulation Given 08/25/2025 8:24 AM EST 5 mg Given 08/24/2025 8:29 PM EST 5 mg Given 08/24/2025 10:22 AM EST 5 mg bisacodyl (DULCOLAX) EC tablet 5 mg 5 mg, Oral, Daily PRN, Constipation, Use if polyethylene glycol is ineffective, Starting on Sat08/20/25 at 0820, Use if no bowel movement after 12 hours. Swallow whole. Do not crush, split, or chew tablet. bisacodyl (DULCOLAX) suppository 10 mg 10 mg, Rectal, Daily PRN, Constipation, Use if bisacodyl oral is ineffective, Starting on Sat08/20/25 at 0820, Use if no bowel movement after 12 hours. Hold for diarrhea calcium gluconate 2000-675 MG/100ML NACL IVPB 2,000 mg, Intravenous, Once, On Mayi 08/19/25 at 2330, For 1 dose New Bag 08/20/2025 12:08 AM EST 2,000 mg carvedilol (COREG) tablet 12.5 mg 12.5 mg, Oral, 2 Times Daily With Meals, First dose on Sat08/22/25 at 1800, Hold for SBP less than 100, DBP less than 60, or heart rate less than 50. If a dose is held, please contact the provider. Give with food. Given 08/23/2025 5:11 PM EST 12.5 mg Given 08/23/2025 8:27 AM EST 12.5 mg Given 08/22/2025 5:13 PM EST 12.5 mg carvedilol (COREG) tablet 25 mg 25 mg, Oral, 2 Times Daily With Meals, First dose (after last modification) on Sat08/24/25 at 1800, Hold for SBP less than 100, DBP less than 60, or heart rate less than 50. If a dose is held, please contact the provider. Give with food. Given 08/25/2025 8:24 AM EST 25 mg donepezil (ARICEPT) tablet 5 mg 5 mg, Oral, Nightly, First dose on 08/21/25 at 2100 Given 08/24/2025 8:29 PM EST 5 mg Given 08/23/2025 9:31 PM EST 5 mg Given 08/22/2025 9:00 PM EST 5 mg hydrALAZINE (APRESOLINE) tablet 25 mg 25 mg, Oral, Once, On Sat08/24/25 at 1215, For 1 dose, Hold for SBP less than 100, DBP less than 60. Caution: Look alike/sound alike drug alert Given 08/24/2025 11:49 AM EST 25 mg iopamidol (ISOVUE-370) 76 % injection 100 mL 100 mL, Intravenous, Once in Imaging, On Mayi 08/19/25 at 1607, For 1 dose Given 08/19/2025 3:51 PM EST 100 mL lactated ringers infusion 9 mL/hr, Intravenous, Continuous, Starting on 08/21/25 at 0000, For 1 day, May switch to NS IV at KVO if renal / if indicated New Bag 08/21/2025 3:07 AM EST 9 mL/hr 9 mL/hr melatonin tablet 5 mg 5 mg, Oral, Nightly PRN, Sleep, Starting on 08/22/25 at 2053 Given 08/22/2025 9:00 PM EST 5 mg mupirocin (BACTROBAN) 2 % nasal ointment 1 Application 1 Application, Each Nare, 2 Times Daily, First dose on 08/20/25 at 0245, For 5 days, Begin on day 1 of ICU admission and continue for 5 days, even if patient transferred out of critical care. MUPIROCIN APPLICATION: 1. Place patient's bed at 30 degrees, if tolerated. 2. Wash your hands with warm soapy water or use hand wire walker. 3. Open the tube of mupirocin 2%. 4. Squeeze about 0.5 g (blueberry-size) of mupirocin from the tube onto a sterile applicator or a cotton swab. 5. Apply the swab directly into nostril. Ensure coating of the sides of the nostril. 6. Repeat with second sterile applicator for other nostril. 7. Gently press the sides of the nostrils together and massage gently for 60 seconds. (BK) Given 08/23/2025 8:27 AM EST 1 Application Given 08/22/2025 9:01 PM EST 1 Application Given 08/22/2025 8:09 AM EST 1 Application nitroglycerin (NITROSTAT) SL tablet 0.4 mg 0.4 mg, Sublingual, Every 5 Minutes PRN, Chest Pain, Starting on Sat08/20/25 at 0140, If Pain Unrelieved After 3 Doses Notify MD May administer up to 3 doses per episode. Hold if SBP less than 100. ondansetron (ZOFRAN) injection 4 mg 4 mg, Intravenous, Every 6 Hours PRN, Nausea, Vomiting, Starting on Sat08/20/25 at 0142, If BOTH ondansetron (ZOFRAN) & promethazine (PHENERGAN) Ordered, Use ondansetron First & THEN promethazine IF ondansetron Ineffective. pantoprazole (PROTONIX) 40 mg in sodium chloride 0.9 % 100 mL (0.4 mg/mL) MBP 8 mg/hr (20 mL/hr), Intravenous, Continuous, Starting on Mayi 08/19/25 at 1930, For 72 hours, Indications: GI BleedIndications:GI Bleed New Bag 08/20/2025 11:44 AM EST 8 mg/hr 20 m L/hr New Bag 08/20/2025 5:42 AM EST 8 mg/hr 20 mL/hr New Bag 08/20/2025 1:25 AM EST 8 mg/hr 20 mL/hr pantoprazole (PROTONIX) EC tablet 40 mg 40 mg, Oral, Every [employer], First dose on Sat08/21/25 at 0600, For 30 doses, Do not crush or chew the capsules or tablets. The drug may not work as designed if the capsule or tablet is crushed or chewed. Swallow whole. Swallow whole; do not crush, split, or chew. Given 08/24/2025 6:38 AM EST 40 mg Given 08/23/2025 5:19 AM EST 40 mg Given 08/22/2025 6:30 AM EST 40 mg pantoprazole (PROTONIX) EC tablet 40 mg 40 mg, Oral, 2 Times Daily Before Meals, First dose (after last modification) on Sat08/24/25 at 1730, For 26 doses, Do not crush or chew the capsules or tablets. The drug may not work as designed if the capsule or tablet is crushed or chewed. Swallow whole. Swallow whole; do not crush, split, or chew. Given 08/25/2025 8:24 AM EST 40 mg Given 08/24/2025 5:04 PM EST 40 mg pantoprazole (PROTONIX) injection 80 mg 80 mg, Intravenous, Once, On Mayi 08/19/25 at 1627, For 1 dose, Dilute with 10 mL of 0.9% NaCl and give IV push over 2 minutes., Indications: GI BleedIndications:GI Bleed Given 08/19/2025 4:54 PM EST 80 mg piperacillin-tazobactam (ZOSYN) 3.375 g IVPB in 100 mL NS MBP (CD) 3.375 g, Intravenous, Administer over 30 Minutes, Once, On Mayi 08/19/25 at 1726, For 1 dose, Indications: EmpiricIndications:Empiric New Bag 08/19/2025 6:10 PM EST 3.375 g polyethylene glycol (MIRALAX) packet 17 g 17 g, Oral, Daily PRN, Constipation, Use if senna-docusate is ineffective, Starting on Sat08/20/25 at 0820, Use if no bowel movement after 12 hours. Mix in 6-8 ounces of water. Use 4-8 ounces of water, tea, or juice for each 17 gram dose. Given 08/23/2025 4:51 PM EST 17 g potassium chloride (KLOR-CON) packet 40 mEq 40 mEq, Oral, Every 4 Hours, First dose on Sat08/22/25 at 0815, For 2 doses, For use with a feeding tube. Mix in at least 4 oz. of liquid. Given 08/22/2025 11:27 AM EST 40 mEq Given 08/22/2025 8:09 AM EST 40 mEq Potassium Replacement - Follow Nurse / BPA Driven Protocol Open Order & [facility] Electrolyte Replacement Protocol Algorithm to View Details prothrombin complex conc human (KCentra) IV solution 2,229 Units 2,229 Units, Intravenous, Administer over 10 Minutes, Once, On Mayi 08/19/25 at 1728, For 1 dose, (BKC) Infuse at rate of 3 units/kg/minute (0.12 mL/kg/minute); max rate of 8.4 mL/minute Given 08/19/2025 5:47 PM EST 2,229 Units sennosides-docusate (PERICOLACE) 8.6-50 MG per tablet 2 tablet 2 tablet, Oral, 2 Times Daily PRN, Constipation, Starting on Sat08/20/25 at 0820, HOLD MEDICATION IF PATIENT HAS HAD BOWEL MOVEMENT. Start bowel management regimen if patient has not had a bowel movement after 12 hours. Given 08/22/2025 11:27 AM EST 2 tablets sodium chloride 0.9 % bolus 1,000 mL 1,000 mL, Intravenous, at 2,000 mL/hr, Administer over 0.5 Hours, Once, On Mayi 08/19/25 at 1545, For 1 dose New Bag 08/19/2025 3:56 PM EST 1,000 mL 2000 mL/hr sodium chloride 0.9 % flush 10 mL 10 mL, Intravenous, Every 12 Hours Scheduled, First dose on Sat08/20/25 at 0245 Given 08/20/2025 3:51 AM EST 10 mL sucralfate (CARAFATE) tablet 1 g 1 g, Oral, 4 Times Daily Before Meals & Nightly, First dose on Sat08/20/25 at 1730, For 7 days, If for oral administration, take on empty stomach. If for rectal enema, dissolve 1 tablet in 10 ml water. Retain enema for as long as possible or for at least 5 minutes. For nasogastric or slurry administration: 1. Remove the cap and plunger from a [address] the sucralfate tablet inside the syringe 3. Replace the plunger so that minimal airspace exists around the tablet 4. Draw up approximately 20 mL water into the syringe 5. Replace the syringe cap 6. Allow the syringe to stand for ~5 minutes, shaking occasionally 7. Shake the suspension and administer directly from the syringe into the tube Flush tube before and after administration Given 08/25/2025 8:24 AM EST 1 g Given 08/24/2025 8:29 PM EST 1 g Given 08/24/2025 5:03 PM EST 1 g documented in this encounter Active and Recently Administered Medications Times are shown in EST. Scheduled Medication Order 08/23/2025 08/24/2025 08/25/2025 apixaban (ELIQUIS) tablet 5 mg 5 mg, Oral, Every 12 Hours Scheduled, First dose on Sat08/24/25 at 1000, Tablet may be crushed and suspended in 60 mL of water or D5W and immediately delivered via NG tube., Indications: Atrial Fibrillation - requiring full anticoagulation 1021 (Given - Provider: Chelly Mancia RN)2028 (Given - Provider: Joe Vickers RN) 0824 (Given - Provider: Ceci Tafoya RN) carvedilol (COREG) tablet 12.5 mg (CANCELED) 12.5 mg, Oral, 2 Times Daily With Meals, First dose on Sat08/22/25 at 1800, Hold for SBP less than 100, DBP less than 60, or heart rate less than 50. If a dose is held, please contact the provider. Give with food. 0827 (Given - Provider: Heydi Montano RN)1711 (Given - Provider: Heydi Montano RN) 1151 (Not Given - Provider: Chelly Mancia RN - Reason: Medication not available) carvedilol (COREG) tablet 25 mg 25 mg, Oral, 2 Times Daily With Meals, First dose (after last modification) on Sat08/24/25 at 1800, Hold for SBP less than 100, DBP less than 60, or heart rate less than 50. If a dose is held, please contact the provider. Give with food. 1800 (Due) 0824 (Given - Provider: Ceci Tafoya RN) donepezil (ARICEPT) tablet 5 mg 5 mg, Oral, Nightly, First dose on 08/21/25 at 2100 2131 (Given - Provider: Luz Lira RN) 2028 (Given - Provider: Joe Vickers RN) hydrALAZINE (APRESOLINE) tablet 25 mg (COMPLETED) 25 mg, Oral, Once, On Sat08/24/25 at 1215, For 1 dose, Hold for SBP less than 100, DBP less than 60. Caution: Look alike/sound alike drug alert 1149 (Given - Provider: Chelly Mancia, BRITTANY) mupirocin (BACTROBAN) 2 % nasal ointment 1 Application (CANCELED) 1 Application, Each Nare, 2 Times Daily, First dose on Sat08/20/25 at 0245, For 5 days, Begin on day 1 of ICU admission and continue for 5 days, even if patient transferred out of critical care. MUPIROCIN APPLICATION: 1. Place patient's bed at 30 degrees, if tolerated. 2. Wash your hands with warm soapy water or use hand wire walker. 3. Open the tube of mupirocin 2%. 4. Squeeze about 0.5 g (blueberry-size) of mupirocin from the tube onto a sterile applicator or a cotton swab. 5. Apply the swab directly into nostril. Ensure coating of the sides of the nostril. 6. Repeat with second sterile applicator for other nostril. 7. Gently press the sides of the nostrils together and massage gently for 60 seconds. ([facility]) 9088 (Given - Provider: Heydi oMntano RN) pantoprazole (PROTONIX) EC tablet 40 mg (CANCELED) 40 mg, Oral, Every [employer], First dose on Sat08/21/25 at 0600, For 30 doses, Do not crush or chew the capsules or tablets. The drug may not work as designed if the capsule or tablet is crushed or chewed. Swallow whole. Swallow whole; do not crush, split, or chew. 0519 (Given - Provider: Chaitanya Bourgeois RN) 0638 (Given - Provider: Luz Lira RN) pantoprazole (PROTONIX) EC tablet 40 mg 40 mg, Oral, 2 Times Daily Before Meals, First dose (after last modification) on Sat08/24/25 at 1730, For 26 doses, Do not crush or chew the capsules or tablets. The drug may not work as designed if the capsule or tablet is crushed or chewed. Swallow whole. Swallow whole; do not crush, split, or chew. 1704 (Given - Provider: Chelly Mancia RN) 0824 (Given - Provider: Ceci Tafoya RN) sucralfate (CARAFATE) tablet 1 g 1 g, Oral, 4 Times Daily Before Meals & Nightly, First dose on Sat08/20/25 at 1730, For 7 days, If for oral administration, take on empty stomach. If for rectal enema, dissolve 1 tablet in 10 ml water. Retain enema for as long as possible or for at least 5 minutes. For nasogastric or slurry administration: 1. Remove the cap and plunger from a [address] the sucralfate tablet inside the syringe 3. Replace the plunger so that minimal airspace exists around the tablet 4. Draw up approximately 20 mL water into the syringe 5. Replace the syringe cap 6. Allow the syringe to stand for ~5 minutes, shaking occasionally 7. Shake the suspension and administer directly from the syringe into the tube Flush tube before and after administration 0827 (Given - Provider: Heydi Montano RN)1239 (Given - Provider: Heydi Montano RN)1651 (Given - Provider: Heydi Montano RN)2130 (Given - Provider: Luz Lira RN) 1022 (Given - Provider: Chelly Mancia, BRITTANY)1149 (Given - Provider: Chelly Mancia RN)170 (Given - Provider: Chelly Mancia RN)2028 (Given - Provider: Joe Vickers RN) 0824 (Given - Provider: Ceci Tafoya RN)1130 (Due) PRN Medication Order 08/23/2025 08/24/2025 08/25/2025 acetaminophen (TYLENOL) tablet 650 mg(Linked Group 1) 650 mg, Oral, Every 4 Hours PRN, Fever, fever greater than 100.4 F or headache, Starting on Sat08/20/25 at 0142, If given for fever, use fever parameter: fever greater than 100.4 F Based on patient request - if ordered for moderate or severe pain, provider allows for administration of a medication prescribed for a lower pain scale. Do not exceed 4 grams of acetaminophen in a 24 hr period. Max dose of 2gm for AST/ALT greater than 120 units/L. If given for pain, use the following pain scale: Mild Pain = Pain Score of 1-3, CPOT 1-2 Moderate Pain = Pain Score of 4-6, CPOT 3-4 Severe Pain = Pain Score of 7-10, CPOT 5-8 bisacodyl (DULCOLAX) EC tablet 5 mg(Linked Group 2) 5 mg, Oral, Daily PRN, Constipation, Use if polyethylene glycol is ineffective, Starting on Sat08/20/25 at 0820, Use if no bowel movement after 12 hours. Swallow whole. Do not crush, split, or chew tablet. bisacodyl (DULCOLAX) suppository 10 mg(Linked Group 2) 10 mg, Rectal, Daily PRN, Constipation, Use if bisacodyl oral is ineffective, Starting on Sat08/20/25 at 0820, Use if no bowel movement after 12 hours. Hold for diarrhea melatonin tablet 5 mg 5 mg, Oral, Nightly PRN, Sleep, Starting on 08/22/25 at 205 nitroglycerin (NITROSTAT) SL tablet 0.4 mg 0.4 mg, Sublingual, Every 5 Minutes PRN, Chest Pain, Starting on Sat08/20/25 at 0140, If Pain Unrelieved After 3 Doses Notify MD May administer up to 3 doses per episode. Hold if SBP less than 100. ondansetron (ZOFRAN) injection 4 mg 4 mg, Intravenous, Every 6 Hours PRN, Nausea, Vomiting, Starting on Sat08/20/25 at 0142, If BOTH ondansetron (ZOFRAN) & promethazine (PHENERGAN) Ordered, Use ondansetron First & THEN promethazine IF ondansetron Ineffective. polyethylene glycol (MIRALAX) packet 17 g(Linked Group 2) 17 g, Oral, Daily PRN, Constipation, Use if senna-docusate is ineffective, Starting on Sat08/20/25 at 0820, Use if no bowel movement after 12 hours. Mix in 6-8 ounces of water. Use 4-8 ounces of water, tea, or juice for each 17 gram dose. 1650 (Given - Provider: Heydi Montano RN) Potassium Replacement - Follow Nurse / BPA Driven Protocol Open Order & [facility] Electrolyte Replacement Protocol Algorithm to View Details sennosides-docusate (PERICOLACE) 8.6-50 MG per tablet 2 tablet(Linked Group 2) 2 tablet, Oral, 2 Times Daily PRN, Constipation, Starting on Sat08/20/25 at 0820, HOLD MEDICATION IF PATIENT HAS HAD BOWEL MOVEMENT. Start bowel management regimen if patient has not had a bowel movement after 12 hours. Linked Groups Order Group 1: acetaminophen (TYLENOL) tablet 650 mgJump to med 650 mg, Oral, Every 4 Hours PRN, Fever, fever greater than 100.4 F or headache, Starting on Sat08/20/25 at 0142, If given for fever, use fever parameter: fever greater than 100.4 F Based on patient request - if ordered for moderate or severe pain, provider allows for administration of a medication prescribed for a lower pain scale. Do not exceed 4 grams of acetaminophen in a 24 hr period. Max dose of 2gm for AST/ALT greater than 120 units/L. If given for pain, use the following pain scale: Mild Pain = Pain Score of 1-3, CPOT 1-2 Moderate Pain = Pain Score of 4-6, CPOT 3-4 Severe Pain = Pain Score of 7-10, CPOT 5-8 Or acetaminophen (TYLENOL) suppository 650 mg (CANCELED) 650 mg, Rectal, Every 4 Hours PRN, Mild Pain, Fever, temperature greater than 100.4 F, Starting on Sat08/20/25 at 0142, If given for fever, use fever parameter: fever greater than 100.4 F Based on patient request - if ordered for moderate or severe pain, provider allows for administration of a medication prescribed for a lower pain scale. Do not exceed 4 grams of acetaminophen in a 24 hr period. Max dose of 2gm for AST/ALT greater than 120 units/L. If given for pain, use the following pain scale: Mild Pain = Pain Score of 1-3, CPOT 1-2 Moderate Pain = Pain Score of 4-6, CPOT 3-4 Severe Pain = Pain Score of 7-10, CPOT 5-8 Group 2: sennosides-docusate (PERICOLACE) 8.6-50 MG per tablet 2 tabletJump to med 2 tablet, Oral, 2 Times Daily PRN, Constipation, Starting on Sat08/20/25 at 0820, HOLD MEDICATION IF PATIENT HAS HAD BOWEL MOVEMENT. Start bowel management regimen if patient has not had a bowel movement after 12 hours. And polyethylene glycol (MIRALAX) packet 17 gJump to med 17 g, Oral, Daily PRN, Constipation, Use if senna-docusate is ineffective, Starting on Sat08/20/25 at 0820, Use if no bowel movement after 12 hours. Mix in 6-8 ounces of water. Use 4-8 ounces of water, tea, or juice for each 17 gram dose. And bisacodyl (DULCOLAX) EC tablet 5 mgJump to med 5 mg, Oral, Daily PRN, Constipation, Use if polyethylene glycol is ineffective, Starting on Sat08/20/25 at 0820, Use if no bowel movement after 12 hours. Swallow whole. Do not crush, split, or chew tablet. And bisacodyl (DULCOLAX) suppository 10 mgJump to med 10 mg, Rectal, Daily PRN, Constipation, Use if bisacodyl oral is ineffective, Starting on Sat08/20/25 at 0820, Use if no bowel movement after 12 hours. Hold for diarrhea documented in this encounter Care Teams Emergency Room Tech Relationship Specialty Start Date End Date Danisha Nguyen, [employer] [address] [place] [address] PCP - General Family Medicine 02/05/24 documented as of this encounter
--- OUTSIDE RECORDS SUMMARY | 2025-08-20 13:29 | XMS_ITS | Encounter Summary ---
[facility] Address [address] [place] [address] Care Team Providers Care Ward Aide Name Role Phone Danisha Nguyen TR Primary Care Provider [phone] Reason for Visit * Reason Comments Syncope * Auth/Cert Specialty Diagnoses / Procedures Referred By Contac t Referred To Contact Referral ID Status Reason Start Date Expiration Date Visits Re quested Visits Authorized [id number] 1 1 Encounter Details Date Type Department Care Team (Late st Contact Info) Description 08/20/2025 1:29 PM EST - 08/20/2025 2:06 PM EST Surgery [facility] [address] [place] [address] Yair Wagner MD [address] [facility] [address] [place] [address] ESOPHAGOGASTRODUODENOSCOPY [86818 (CPT )] Social History Tobacco Use Types Packs/Day Years [...] Answer Date Recorded Current Living Arrangements home 07/25 Potentially Unsafe Housing Conditions Not on bryce e 08/19/2025 Disabilities Answer Date Recorded Difficulty Concentrating, Remembering or Making Decisions yes 08/19/2025 Difficulty Managing Errands Independently yes 08/19/2025 Sex and Gender Information Value Date Recorded Sex Assigned at Not on file Legal Sex Male 1:10 PM EST Gender Identity Not on file Sexual Orientation Not on file documented as of this encounter Last Filed Vital Signs Vital Sign Reading Time Taken Comments Blood Pressure 128/107 08/20/2025 2:00 PM EST Pulse 93 08/20/2025 2:00 PM EST Temperature 36.7 C (98 F) 08/20/2025 12:00 PM EST Respiratory Rate 18 08/20/2025 2:00 PM EST Oxygen Saturation 97% 08/20/2025 2:00 PM EST Inhaled Oxygen Concentration - - Weight 67.3 kg (148 lb 5.9 oz) 08/20/2025 6:00 A M EST Height 167.6 cm (5' 6 ) [...] 08/19/2025 2:55 PM Briseida Carter RN * Nolan Suicide Severity Rating Scale (Screener/Recent Self-Report) Question [...] from the original note were not included. [facility] Medicine Services DISCHARGE SUMMARY Patient Name: Valdez [...] Date/Time Blood Culture - Blood, Arm, Right [[id number]] (Normal) Collected: 08/19/251725 Lab Status: Final result Specimen: Blood from Arm, Right Updated: 08/24/251945 Blood Culture No growth at 5 days Blood Culture - Blood, Hand, Right [[id number]] (Normal) Collected: 08/19/251716 Lab Status: Final result [...] MD 08/19/2025 4:24 PM EST Workstation ID: [id number] CT Angiogram Abdomen Pelvis Result Date: 08/19/2025 [...] MD 08/19/2025 4:24 PM EST Workstation ID: [id number] CT Head Without Contrast Result Date: 08/19/2025 [...] MD 08/19/2025 4:00 PM EST Workstation ID: [id number] CT Cervical Spine Without Contrast Result Date: [...] MD 08/19/2025 4:00 PM EST Workstation ID: [id number] Results for orders placed in visit on [...] stiffness 3Info obtained from Dr Pitts' office [place], [place] Pravastatin Unknown - Low Severity Other reaction(s): muscle weakness, muscle weakness Rosuvastatin Unknown - Low Severity Other reaction(s): Muscle spasm, Muscle stiffness 2Info obtained from Dr Pitts' office [place], [place] Simvastatin Unknown - Low Severity Other [...] Provider Department Center 09/06/2025 12:30 PM Anita Alvarenga MD [facility] 09/06/2025 12:30 PM [facility] DEVICE CHECK E [facility] Additional Instructions for the Follow-ups that You Need to Schedule Discharge Follow-up with PCP As directed Currently Documented PCP: Danisha Nguyen APRN PCP Follow Up Details: Next week with CBC Brandon Clements MD 08/25/25 Time Spent on Discharge: I spent 40 minutes on this discharge activity which included: kflq-zb-[id number] with the patient, reviewing the data in [...] 2 08/25/2025 10:49 AM EST 08/25/2025 11/24/19 tamsulosin (FLOMAX) 0.4 MG capsule 24 hr capsule 12/28/2024 Evolocumab (Repatha SureClick) solution auto-injector SureClick injectionIndicat ions:Pure hypercholesterol emia, unspecified INJECT 140MG (1 PEN) SUBCUTANEOUSLY EVERY TWO WEEKS 2 mL 11 11/09/2024 09/06/20 sucralfate (CARAFATE) 1 g tablet Take 1 tablet by mouth 4 (Four) Times a Day Before Meals & at Bedtime for 10 doses. 10 tablet 08/25/2025 10:49 AM EST 08/25/2025 08/28/20 donepezil (ARICEPT) 5 MG tablet TAKE ONE TABLET BY MOUTH EVERY DAY FOR memory loss 01/26/2025 09/06/20 documented as of this encounter Progress Notes * Brandon Clements MD - 08/24/2025 8:56 AM EST Images from the original note were not included. [facility] Medicine Services PROGRESS NOTE Patient Name: Valdez [...] exists. AM-PAC 6 Clicks Score (PT): 23 (08/23/251805) CODE STATUS: There are no questions and answers to display. Brandon Clements MD 08/24/25 * Thomas Segura MD - 08/23/2025 8:36 AM EST Images from the original note were not included. INCLUSION INTERN PROGRESS NOTE SUBJECTIVE Valdez 89 y.o. 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 We serve as the steam shovel operator or member of an interprofessional team, coordinating and guiding healthcare professionals to pr ovide specialized care for critically ill patients. We manage and resuscitate patients with, or at risk for, critical illness and organ failure and initiate interventions to prevent imminent deterioration. (2023 Consensus Statement from the Society of Critical Care Medicine Defining Slusher Operator Task Force. [facility] 2024. DOI: 10.1097/[facility].[id number] Interval History: POD: 3 Days Post-Op Procedure(s) [...] Examination Vitals: Temp: 97.7 ??F (36.5 ??C) (08/23/25 0400) Temp Min: 97.7 ??F (36.5 ??C) Max: 98.3 ??F (36.8 ??C) Temp core: BP: 130/93 (08/23/25 0827) BP Min: 94/61 Max: 159/99 MAP (non-invasive) Noninvasive MAP (mmHg): 105 (08/23/25 0600) Noninvasive MAP (mmHg) Av.4 Min: 56 Max: 122 Pulse: 93 (08/23/25 08) Pulse Min: 80 Max: 138 Resp: 20 (08/23/25 0400) Resp Min: 16 Max: 20 SpO2: 100 % (08/23/25599) SpO2 Min: 87 % Max: 100 % Device: room air (08/23/25599) Flow Rate: 3 (08/20/25 2300) No data recorded Intake/Ouptut 24 hrs (7:00AM [...] (08/23/25599) Best Verbal Response: 4-->(V4) confused (08/23/25599) [place] Coma Scale Score: 14 (08/23/25599) Lines, Drains & Airways Active LDAs Name Placement date Placement time Site Days Peripheral IV 08/22/25 1010 20 G Distal;Posterior;Right Forearm 08/22/25 1010 Forearm less than 1 Results Reviewed: Laboratory Microbiology Radiology Pathology Hematology: Results from last 7 days Lab Units 08/23/25 0722 12/0125608/22/25 1912 08/21/25 1231 08/21/25 0314 08/20/25 1218 08/20/25 0735 WBC 10*3/mm3 -- 6.73 -- -- 6.69 -- 6.49 HEMOGLOBIN g/dL 7.7* 7.3* 8.0* < > 7.7* < > 7.4* MCV fL -- 89.7 -- -- 89.8 -- 88.3 PLATELETS 10*3/mm3 -- 141 -- -- 130* -- 130* < > = values in this interval not displayed. Results from last 7 days Lab Units 08/23/2525608/21/2531308/20/25 0735 NEUTROS ABS 10*3/mm3 4.32 4.66 4.71 [...] from last 7 days Lab Units 08/23/2525608/22/25 0638 08/21/2531308/20/25 0735 08/20/25 0033 IONIZED CALCIUM mmol/L -- [...] Intensive Care Medicine - Nutrition Support [] Sausage Cooker Copied text in this note has been reviewed and is accurate as of 08/23/25 * James Tineo MD - 08/22/2025 11:29 AM EST Images from the original note were not included. Intensive Care Follow-up Hospital: LOS: 3 days Mr. Valdez Grier, 89 y.o. male [...] social history were reviewed and updated in [facility] as appropriate. Objective Infusions: Medications: donepezil, [...] elements of the note. James Tineo MD, [facility] Pul[facility], Critical care and Sleep Medicine * [...] social history were reviewed and updated in [facility] as appropriate. Objective Infusions: lactated ringers, [...] Input/Output for last 24 hour shift 08/20 0701 - 08/21 0700 In: 1084 [P.O.:880; I.V.:204] Out: 725 [Urine:725] [...] Results from last 7 days Lab Units 08/21/25 0314 08/21/25 0026 08/20/25 1940 08/20/25 1218 08/20/25 0735 08/20/25 0033 WBC 10*3/mm3 6.69 -- -- -- 6.49 5.88 HEMOGLOBIN g/dL 7.7* 7.2* 7.6* < > 7.4* 6.8* PLATELETS 10*3/mm3 130* -- -- -- 130* 137* < > = values in this interval not displayed. Results from last 7 days Lab Units 08/21/25 0314 08/20/25 0735 08/20/25 0033 SODIUM mmol/L 144 142 [...] elements of the note. James Tineo MD, [facility] Pulmonary, Critical care and Sleep Medicine * [...] social history were reviewed and updated in [facility] as appropriate. Objective Infusions: [START ON [...] Input/Output for last 24 hour shift 08/19 701 - 08/20 07 In: 2589.9 [I.V.:786] Out: 700 [Urine:700] Objective: [...] in the patient???s condition. James Tineo MD, [facility] Pulmonary, Critical care and Sleep Medicine documented [...] cholecystitis and an enlarged prostate. He did havea left upper lobe lung nodule. He denies [...] nodes: Neurologic: Alert, speech fluent, face symmetric, incident response manager equal Results Review: Lab Results (last 24 hours) Procedure Component Value Units Date/Time Lactic Acid, Plasma [[id number]] (Abnormal) Collected: 08/19/25 1508 Specimen: Blood Updated: 08/19/25 1823 Lactate 3.5 mmol/L Comment: Falsely depressed results may occur on samples drawn from patients receiving N-Acetylcysteine (NAC) or Metamizole. Hemoglobin & Hematocrit, Blood [[id number]] Collected: 08/19/25 1814 Specimen: Blood Updated: 08/19/25 1819 Protime-INR [[id number]] (Abnormal) Collected: 08/19/25 1508 Specimen: Blood Updated: 08/19/25 1802 Protime 23.8 Seconds INR 1.98 Procalcitonin [[id number]] Collected: 08/19/25 1508 Specimen: Blood Updated: 08/19/25 1753 High Sensitivity Troponin T 1Hr [[id number]] (Abnormal) Collected: 08/19/25 1608 Specimen: Blood Updated: [...] an underlying chronic condition. Comprehensive Metabolic Panel [[id number]] (Abnormal) Collected: 08/19/251507 Specimen: Blood Updated: 08/19/25 154 Glucose 165 mg/dL BUN 27.2 mg/dL Creatinine [...] not include race as a factor Magnesium [[id number]] (Normal) Collected: 08/19/25 150 Specimen: Blood Updated: 08/19/25 154 Magnesium 2.3 mg/dL High Sensitivity Troponin T [[id number]] (Abnormal) Collected: 08/19/25 150 Specimen: Blood Updated: 08/19/25 1541 HS Troponin T 25 ng/L Narrative: High [...] to an underlying chronic condition. POC Creatinine [[id number]] (Normal) Collected: 08/19/25 1516 Specimen: Blood Updated: 08/19/25 153 Creatinine 1.20 mg/dL Comment: Serial Number: [id number]: [id number] [place] Draw [[id number]] Collected: 08/19/25 1508 Specimen: Blood Updated: 08/19/25 153 Narrative: The following orders were created for panel order [place] Draw. Procedure Abnormality Status --------- ------ Green Top (Gel)[[id number]] Final result Lavender Top[[id number]] Final result Gold Top - SST[[id number]] Final result Hwang Top[[id number]] Final result Light Blue Top[[id number]] Final result Please view results for these tests on the individual orders. Green Top (Gel) [[id number]] Collected: 08/19/25 1508 Specimen: Blood Updated: 08/19/25 1531 Extra Tube Hold for add-ons. Comment: Auto resulted. Lavender Top [[id number]] Collected: 08/19/25 1508 Specimen: Blood Updated: 08/19/25 1531 Extra Tube hold for add-on Comment: Auto resulted Gold Top - SST [[id number]] Collected: 08/19/25 1508 Specimen: Blood Updated: 08/19/25 1531 Extra Tube Hold for add-ons. Comment: Auto resulted. Hwang Top [[id number]] Collected: 08/19/25 1508 Specimen: Blood Updated: 08/19/25 1531 Extra Tube Hold for add-ons. Comment: Auto resulted. Light Blue Top [[id number]] Collected: 08/19/25 1508 Specimen: Blood Updated: 08/19/25 1531 Extra Tube Hold for add-ons. Comment: Auto resulted CBC & Differential [[id number]] (Abnormal) Collected: 08/19/25 1508 Specimen: Blood Updated: 08/19/25 1526 Narrative: The following orders were created for panel order CBC & Differential. Procedure Abnormality Status --------- ------ CBC Auto Differential[[id number]] Abnormal Final result Please view results for these tests on the individual orders. CBC Auto Differential [[id number]] (Abnormal) Collected: 08/19/25 1508 Specimen: Blood Updated: [...] nRBC 0.3 /100 WBC POC Glucose Once [[id number]] (Abnormal) Collected: 08/19/25 1519 Specimen: Blood Updated: 08/19/25 1521 Glucose 138 mg/dL Comment: Serial Number: [id number]: [id number] Angie Comment 1 Follow unit protocol Imaging Results (Last 24 Hours) Procedure Component Value Units Date/Time CT Angiogram Chest [[id number]] Collected: 08/19/25 1600 Updated: 08/19/25 1627 Narrative: [...] MD 08/19/2025 4:24 PM EST Workstation ID: [id number] CT Angiogram Abdomen Pelvis [[id number]] Collected: 08/19/25 1600 Updated: 08/19/251626 Narrative: CT ANGIOGRAM CHEST, CT ANGIOGRAM ABDOMEN [...] MD 08/19/2025 4:24 PM EST Workstation ID: [id number] CT Head Without Contrast [[id number]] Collected: 08/19/25 1549 Updated: 08/19/25 1603 Narrative: [...] MD 08/19/2025 4:00 PM EST Workstation ID: [id number] CT Cervical Spine Without Contrast [[id number]] Collected: 08/19/25 1549 Updated: 08/19/25 1603 Narrative: [...] MD 08/19/2025 4:00 PM EST Workstation ID: [id number] PROBLEM LIST Upper GI bleed Acute blood [...] AM ESTAssociated Order(s): IP CONSULT TO [facility] Referring Provider: No ref. provider [...] Flowsheet Documentation Taken 08/25/2025 0400 by Joe Vickers, RN Safety Promotion/Fall Prevention: activity supervised assistive [...] Prevention: rest/sleep promoted environmental surveillance performed Taken 08/24/20251934 by Joe Vickers RN Infection Prevention: environmental [...] encouraged BADL personal objects within reach Taken 08/24/2025 193 by Joe Vickers RN Self-Care Promotion: independence [...] Outcome: Progressing Intervention: Promote Activity and Functional Mccormick Recent Flowsheet Documentation Taken 08/25/2025 0400 by [...] documented in this encounter ED Notes * Daniel Mackey MD - 08/19/2025 2:51 PM EST Images from the original note were not included. [facility] E[facility]OUN[facility] Pt Name: Valdez Grier [...] this chart in the absence of a golf cart repairer. ECG 12 Lead Syncope Preliminary Result Test [...] increased by 3 bpm Referred By: ED MD Confirmed By: ECG 12 Lead Syncope Preliminary [...] MD 08/19/2025 4:24 PM EST Workstation ID: [id number] CT Angiogram Abdomen Pelvis Final Result Impression: [...] MD 08/19/2025 4:24 PM EST Workstation ID: [id number] CT Head Without Contrast Final Result Impression: HEAD: 1.No intracranial hemorrhage or acute intracranial abnormality. 2.Generalized cerebral atrophy with white matter findings of chronic microvascular disease. CERVICAL SPINE: 3.Negative for cervical spine fracture. 4.Multilevel cervical spondylosis above. Electronically Signed: Dion Rai MD 08/19/2025 4:00 PM EST Workstation ID: [id number] CT Cervical Spine Without Contrast Final Result Impression: HEAD: 1.No intracranial hemorrhage or acute intracranial abnormality. 2.Generalized cerebral atrophy with white matter findings of chronic microvascular disease. CERVICAL SPINE: 3.Negative for cervical spine fracture. 4.Multilevel cervical spondylosis above. Electronically Signed: Dion Rai MD 08/19/2025 4:00 PM EST Workstation ID: [id number] I ordered and independently reviewed the above [...] PM Result Value Ref Range Product Code I4225N53 Unit Number [id number] UNIT ABO A UNIT RH NEG Crossmatch Interpretation Compatible Dispense Status XM Blood Expiration Date Blood Type Barcode 0600 Product Code X5110V85 Unit Number [id number] UNIT ABO A UNIT RH NEG Crossmatch [...] ICA ED Course: ED Course as of 08/19/25 182 Mayi Aug 19, 2025 1530 The last hemoglobin [...] 08/24/2025 12:21 PM EST Continued Stay Note Ro Patient Name: Valdez Grier Today's Date: 08/24/2025 [...] coming in home like HH or caregivers. Theyhave discussed selling both of their homes and [...] Marion RN * Therapy Evaluation - Phillip Ordonez PT - 08/24/2025 10:55 AM EST Images [...] Procedure: ESOPHAGOGASTRODUODENOSCOPY; Surgeon: Yair Wagner MD; Location: [facility]; Service: Gastroenterology; Laterality: N/A; APC to stomach - effect 2, max knapp 30. APC to small bowel - effect 2, max knapp 20. HERNIA REPAIR General Information Row Name 08/24/25 1128 Physical Therapy Time and Intention Document Type evaluation -AG Mode of Treatment physical therapy -AG Row Name 08/24/25 1128 General Information Patient Profile Reviewed yes -AG Prior Level of Function independent:;all household mobility;community mobility;gait;transfer;bed mobility;driving -AG Existing Precautions/Restrictions no known precautions/restrictions - Barriers to Rehab none identified -AG Row Name 08/24/25 1128 Living Environment Current Living Arrangements home -AG [...] Bed Mobility Bed Mobility supine-sit;sit-supine;scooting/bridging -AG Scooting/Bridging Mccormick (Bed Mobility) supervision;verbal cues -AG Supine-Sit Mccormick (Bed Mobility) standby assist -AG Sit-Supine Mccormick (Bed Mobility) standby assist -AG Assistive Device (Bed Mobility) bed rails;head of bed elevated -AG Comment, (Bed Mobility) SBA for supine<>sit. Vc for improved sequencing for scooting up in bed. -AG Row Name 08/24/25 1129 Sit-Stand Transfer Sit-Stand Mccormick (Transfers) contact guard -AG Assistive Device (Sit-Stand Transfers) walker, front-wheeled -AG Comment, (Sit-Stand Transfer) EOBx2 -AG Row Name 08/24/25 1129 Gait/Stairs (Locomotion) Mccormick Level (Gait) contact guard -AG Assistive Device [...] Phillip De La Cruz PT Physical Therapist Goals/Plan Row Name 08/24/25 1139 Bed Mobility Goal 1 (PT) Activity/Assistive Device (Bed Mobility Goal 1, PT) sit to supine/supine to sit;scooting -AG Mccormick Level/Cues Needed (Bed Mobility Goal 1, PT) independent -AG Time Frame (Bed Mobility Goal 1, PT) short term goal (STG);5 days -AG Row Name 08/24/25 1139 Transfer Goal 1 (PT) Activity/Assistive Device (Transfer Goal 1, PT) zgq-nm-szudf/skvwq-ly-pxp;qab-ny-jezgc/celut-il-vwb-AG Mccormick Level/Cues Needed (Transfer Goal 1, PT) standby assist -AG Time Frame (Transfer Goal 1, PT) longterm goal (LTG);10 days -AG Row Name 08/24/25 113 Gait Training Goal 1 (PT) Activity/Assistive Device (Gait Training Goal 1, PT) gait (walking locomotion);improve balance and speed;increase endurance/gait distance -AG Mccormick Level (Gait Training Goal 1, PT) standby assist -AG Distance (Gait Training Goal 1, PT) 500' -AG Time Frame (Gait Training Goal 1, PT) longterm goal (LTG);10 days -AG Row Name 08/24/25 113 Stairs Goal 1 (PT) Activity/Assistive Device (Stairs Goal 1, PT) ascending stairs;descending stairs -AG Mccormick Level/Cues Needed (Stairs Goal 1, PT) standby assist -AG Number of Stairs (Stairs Goal 1, PT) 1 -AG Time Frame (Stairs Goal 1, PT) intermodal truck driver goal (LTG);10 days -AG Row Name 08/24/25 113 Therapy Assessment/Plan (PT) Planned Therapy Interventions (PT) balance training;bed mobility training;gait training;home exercise program;patient/family education;postural re- education;stair training;strengthening;stretching;transfer training -AG User Woodard (r) = Recorded By, (t) = Taken By, (c) = Cosigned By Initials Name Provider Type Phillip De La Cruz PT Physical Therapist Clinical Impression Row Name [...] Phillip De La Cruz, PT Physical Therapist Outcome Measures Row Name [...] Options AM-PAC 6 Clicks Basic Mobility (PT) -AG User Woodard (r) = Recorded By, (t) = Taken By, (c) = Cosigned By Initials Name Provider Type AG Phillip Ordonez PT Physical Therapist Physical Therapy Education Title: PT OT SAND ANALYST Therapies (In Progress) Topic: Physical Therapy (In Progress) Point: Mobility training (Done) Learning Progress Summary Patient Acceptance, E, VU by AG at 08/24/2025 1140 Family Acceptance, E, VU by AG at 08/24/2025 1140 Point: Home exercise program (Not Started) Learner Progress: Not documented in this visit. Point: Body mechanics (Done) Learning Progress Summary Patient Acceptance, E, VU by AG at 08/24/2025 1140 Family Acceptance, E, VU by AG at 08/24/2025 1140 Point: Precautions (Done) Learning Progress Summary Patient Acceptance, E, VU by at 08/24/2025 1140 Family Acceptance, E, VU by AG at 08/24/2025 1140 User Woodard Initials Effective Dates Name Provider Type On license of [facility] 06/15/25 - Phillip Ordonez PT Physical Therapist [...] -AG PT Goal Re-Cert Due Date 09/03/25 - Untimed Charges PT Eval/Re-eval Minutes 55 -AG Total Minutes Untimed Charges Total Minutes 55 -AG Total Minutes 55 -AG User Woodard (r) = Recorded By, (t) = Taken By, (c) = Cosigned By Initials Name Provider Type Phillip De La Cruz PT Physical Therapist Therapy Charges for Today Code Description Service Date Service Provider Modifiers Qty [id number] HC PT EVAL LOW COMPLEXITY 4 08/24/2025 Phillip Ordonez PT GP 1 PT G-Codes Outcome Measure Options: AM-PAC 6 Clicks Basic Mobility (PT) AM-PAC 6 Clicks Score (PT): 20 PT Discharge Summary Anticipated Discharge Disposition (PT): home with home health Phillip Ordonez PT 08/24/2025 * Case Management/Social Work - Madonna Steinberg RN - 08/23/2025 3:02 PM EST Images from the original note were not included. Discharge Planning Assessment [facility] Patient Name: Valdez Grier Today's Date: 08/23/2025 Admit Date: 08/19/2025 Plan: Home Discharge Needs Assessment Row Name 08/23/25 1450 Living Environment People in Home alone Current Living Arrangements home Primary Care Provided by self Provides Primary Care For no one Family Caregiver if Needed other (see comments) Ex and OSCAR Grier Quality of Family Relationships supportive Able [...] complete IDP. Mr. Grier lives alone in [facility]. Patient's (POA) assists Mr. Grier when needed and checks on him daily. Heis independent with ADL's and still drives. He has a CPAP machine at home, but does not use. He does not use home health services. He has advance directives filed. His preferred Pharmacy is [facility]. His PCP is Danisha [...] Reason for Consult discharge planning Preferred Language Northern Irish Contact Information Permission Granted to Share Info With gearcase assemblerfood production manager Status Row Name 08/23/25 1450 Functional [...] Description 09/20/2025 1:15 PM EST Office Visit [facility] [address] [place] [address] [place] [address] Huang Valdez MD [address] [place] [address] [place] [address] 09/29/2025 2:45 PM EST Office Visit [facility] [address] [place] [address] [place] [phone] Willow Rodgers APRN [address] [place] [address] 09/29/2025 2:45 PM EST Clinical Support No Requirements [facility] [address] [facility] [place] [phone] Pending Results Name Type Priority Associated [...] 12:26 AM EST POCT GLUCOSE FINGERSTICK Routine 025 11:14 PM EST HEMOGLOBIN AND HEMATOCRIT, BLOOD Timed 08/20/2025 7:40 PM EST POCT GLUCOSE FINGERSTICK Routine 025 5:23 PM EST MI ESOPHAGOGASTRODUODENOSCOP Y TRANSORAL DIAGNOSTIC 08/20/2025 3:28 PM EST UPPER GI ENDOSCOPY 08/20/2025 3:03 PM EST HEMOGLOBIN AND HEMATOCRIT, BLOOD Timed 08/20/2025 12:18 PM EST POCT GLUCOSE FINGERSTICK Routine 025 12:04 PM EST CBC WITH AUTO DIFFERENTIAL [...] 3:47 PM EST POCT GLUCOSE FINGERSTICK STAT 11/27/2 025 3:19 PM EST POCT CREATININE STAT [...] 3.40 - 10.80 10*3/mm3 08/25/2025 6:19 AM [facility] RBC 3.10(L) 4.14 - 5.80 10*6/mm3 08/25/2025 6:19 AM [facility] Hemoglobin 8.7(L) 13.0 - 17.7 g/dL 08/25/2025 6:19 AM [facility] Hematocrit 27.9(L) 37.5 - 51.0 % 08/25/2025 6:19 AM [facility] MCV 90.0 79.0 - 97.0 fL 08/25/2025 6:19 AM [facility] MCH 28.1 26.6 - 33.0 pg 08/25/2025 6:19 AM [facility] MCHC 31.2(L) 31.5 - 35.7 g/dL 08/25/2025 6:19 AM [facility] RDW 15.0 12.3 - 15.4 % 08/25/2025 6:19 AM [facility] RDW-SD 48.2 37.0 - 54.0 fl 08/25/2025 6:19 AM [facility] MPV 12.2(H) 6.0 - 12.0 fL 08/25/2025 6:19 AM [facility] Platelets 175 140 - 450 10*3/mm3 08/25/2025 6:19 AM [facility] Neutrophil % 67.7 42.7 - 76.0 % 08/25/2025 6:19 AM [facility] Lymphocyte % 14.2(L) 19.6 - 45.3 % 08/25/2025 6:19 AM [facility] Monocyte % 15.5(H) 5.0 - 12.0 % 08/25/2025 6:19 AM [facility] Eosinophil % 1.9 0.3 - 6.2 % 08/25/2025 6:19 AM [facility] Basophil % 0.4 0.0 - 1.5 % 08/25/2025 6:19 AM [facility] Immature Grans % 0.3 0.0 - 0.5 % 08/25/2025 6:19 AM EST [facility] Neutrophils, Absolute 5.36 1.70 - 7.00 10*3/mm3 08/25/2025 6:19 AM EST [facility] Lymphocytes, Absolute 1.12 0.70 - 3.10 10*3/mm3 08/25/2025 6:19 AM [facility] Monocytes, Absolute 1.23(H) 0.10 - 0.90 10*3/mm3 08/25/2025 6:19 AM [facility] Eosinophils, Absolute 0.15 0.00 - 0.40 10*3/mm3 08/25/2025 6:19 AM [facility] Basophils, Absolute 0.03 0.00 - 0.20 10*3/mm3 08/25/2025 6:19 AM [facility] Immature Grans, Absolute 0.02 0.00 - 0.05 10*3/mm3 08/25/2025 6:19 AM [facility] nRBC 0.0 0.0 - 0.2 /100 WBC 08/25/2025 6:19 AM [facility] Blood Venipuncture / Unknown 08/25/2025 5:48 AM EST 08/25/2025 6:08 AM EST us Thomas Segura MD LAB BLOOD ORDERABLES Final Resu lt [facility]
[address] [place] [address], * (ABNORMAL) CBC Auto Differential (08/24/2025 5:36 AM EST) WBC 5.94 3.40 - 10.80 10*3/mm3 08/24/2025 6:47 AM EST [facility] RBC 2.94(L) 4.14 - 5.80 10*6/mm3 08/24/2025 6:47 AM [facility] Hemoglobin 8.2(L) 13.0 - 17.7 g/dL 08/24/2025 6:47 AM [facility] Hematocrit 26.1(L) 37.5 - 51.0 % 08/24/2025 6:47 AM [facility] MCV 88.8 79.0 - 97.0 fL 08/24/2025 6:47 AM [facility] MCH 27.9 26.6 - 33.0 pg 08/24/2025 6:47 AM [facility] MCHC 31.4(L) 31.5 - 35.7 g/dL 08/24/2025 6:47 AM [facility] RDW 15.0 12.3 - 15.4 % 08/24/2025 6:47 AM [facility] RDW-SD 47.2 37.0 - 54.0 fl 08/24/2025 6:47 AM [facility] MPV 12.4(H) 6.0 - 12.0 fL 08/24/2025 6:47 AM [facility] Platelets 150 140 - 450 10*3/mm3 08/24/2025 6:47 AM [facility] Neutrophil % 69.4 42.7 - 76.0 % 08/24/2025 6:47 AM [facility] Lymphocyte % 13.5(L) 19.6 - 45.3 % 08/24/2025 6:47 AM [facility] Monocyte % 13.8(H) 5.0 - 12.0 % 08/24/2025 6:47 AM [facility] Eosinophil % 2.5 0.3 - 6.2 % 08/24/2025 6:47 AM [facility] Basophil % 0.3 0.0 - 1.5 % 08/24/2025 6:47 AM [facility] Immature Grans % 0.5 0.0 - 0.5 % 08/24/2025 6:47 AM [facility] Neutrophils, Absolute 4.12 1.70 - 7.00 10*3/mm3 08/24/2025 6:47 AM EST [facility] Lymphocytes, Absolute 0.80 0.70 - 3.10 10*3/mm3 08/24/2025 6:47 AM EST [facility] Monocytes, Absolute 0.82 0.10 - 0.90 10*3/mm3 08/24/2025 6:47 AM EST [facility] Eosinophils, Absolute 0.15 0.00 - 0.40 10*3/mm3 08/24/2025 6:47 AM [facility] Basophils, Absolute 0.02 0.00 - 0.20 10*3/mm3 08/24/2025 6:47 AM EST [facility] Immature Grans, Absolute 0.03 0.00 - 0.05 10*3/mm3 08/24/2025 6:47 AM [facility] nRBC 0.0 0.0 - 0.2 /100 WBC 08/24/2025 6:47 AM [facility] Blood Venipuncture / Unknown 08/24/2025 5:36 AM EST 08/24/2025 6:36 AM EST us Thomas Segura MD LAB BLOOD ORDERABLES Final Resu lt [facility]
[address] [place] [address], * (ABNORMAL) Basic Metabolic Panel (08/24/2025 5:36 AM EST) Glucose 97 65 - 99 mg/dL 08/24/2025 7:08 AM EST [facility] BUN 12.1 8.0 - 23.0 mg/dL 08/24/2025 7:08 AM [facility] Creatinine 0.75(L) 0.76 - 1.27 mg/dL 08/24/2025 7:08 AM EST [facility] Sodium 140 136 - 145 mmol/L 08/24/2025 7:08 AM [facility] Potassium 3.9 3.5 - 5.2 mmol/L 08/24/2025 7:08 AM [facility] Chloride 107 98 - 107 mmol/L 08/24/2025 7:08 AM [facility] CO2 25.1 22.0 - 29.0 mmol/L 08/24/2025 7:08 AM EST [facility] Calcium 8.8 8.6 - 10.5 mg/dL 08/24/2025 7:08 AM EST [facility] BUN/Creatinine Ratio 16.1 7.0 - 25.0 08/24/2025 7:08 AM [facility] Anion Gap 7.9 5.0 - 15.0 mmol/L 08/24/2025 7:08 AM [facility] eGFR 87.3 >60.0 mL/min/1.7 3 08/24/2025 7:08 AM [facility] Blood Venipuncture / Unknown 08/24/2025 5:36 AM EST 08/24/2025 6:37 AM EST [facility] - 08/24/2025 7:08 AM EST GFR [...] not include race as a factor us Thomas Segura MD LAB BLOOD ORDERABLES Final Resu lt [facility]
[address] [place] [address], * Telemetry Scan (08/23/2025 10:05 AM EST) [facility] Onbase ECG ORDERABLES Final Result * (ABNORMAL) Hemoglobin & Hematocrit, Blood (08/23/2025 7:22 AM EST) Pathologist [facility] [place] Hemoglobin 7.7(L) 13.0 - 17.7 g/dL 08/23/2025 8:05 AM EST [facility] Hematocrit 24.1(L) 37.5 - 51.0 % 08/23/2025 8:05 AM [facility] Blood Venipuncture / Unknown 08/23/2025 7:22 AM EST 08/23/2025 8:01 AM EST James Tineo MD LAB BLOOD ORDERABLES Final Re sult [facility]
[address] [place] [address], * (ABNORMAL) CBC Auto Differential (08/23/2025 2:57 AM EST) Pathologist [facility] WBC 6.73 3.40 - 10.80 10*3/mm3 08/23/2025 3:55 AM [facility] RBC 2.62(L) 4.14 - 5.80 10*6/mm3 08/23/2025 3:55 AM EST [facility] Hemoglobin 7.3(L) 13.0 - 17.7 g/dL 08/23/2025 3:55 AM [facility] Hematocrit 23.5(L) 37.5 - 51.0 % 08/23/2025 3:55 AM [facility] MCV 89.7 79.0 - 97.0 fL 08/23/2025 3:55 AM [facility] MCH 27.9 26.6 - 33.0 pg 08/23/2025 3:55 AM [facility] MCHC 31.1(L) 31.5 - 35.7 g/dL 08/23/2025 3:55 AM [facility] RDW 14.6 12.3 - 15.4 % 08/23/2025 3:55 AM [facility] RDW-SD 46.5 37.0 - 54.0 fl 08/23/2025 3:55 AM [facility] MPV 12.8(H) 6.0 - 12.0 fL 08/23/2025 3:55 AM [facility] Platelets 141 140 - 450 10*3/mm3 08/23/2025 3:55 AM [facility] Neutrophil % 64.3 42.7 - 76.0 % 08/23/2025 3:55 AM [facility] Lymphocyte % 15.6(L) 19.6 - 45.3 % 08/23/2025 3:55 AM [facility] Monocyte % 17.5(H) 5.0 - 12.0 % 08/23/2025 3:55 AM [facility] Eosinophil % 1.9 0.3 - 6.2 % 08/23/2025 3:55 AM [facility] Basophil % 0.3 0.0 - 1.5 % 08/23/2025 3:55 AM [facility] Immature Grans % 0.4 0.0 - 0.5 % 08/23/2025 3:55 AM [facility] Neutrophils, Absolute 4.32 1.70 - 7.00 10*3/mm3 08/23/2025 3:55 AM [facility] Lymphocytes, Absolute 1.05 0.70 - 3.10 10*3/mm3 08/23/2025 3:55 AM [facility] Monocytes, Absolute 1.18(H) 0.10 - 0.90 10*3/mm3 08/23/2025 3:55 AM [facility] Eosinophils, Absolute 0.13 0.00 - 0.40 10*3/mm3 08/23/2025 3:55 AM [facility] Basophils, Absolute 0.02 0.00 - 0.20 10*3/mm3 08/23/2025 3:55 AM EST [facility] Immature Grans, Absolute 0.03 0.00 - 0.05 10*3/mm3 08/23/2025 3:55 AM EST [facility] nRBC 0.0 0.0 - 0.2 /100 WBC 08/23/2025 3:55 AM EST [facility] Blood Venipuncture / Unknown 08/23/2025 2:57 AM EST 08/23/2025 3:48 AM EST James Tineo MD LAB BLOOD ORDERABLES Final Re sult [facility]
[address] [place] [address], * Magnesium (08/23/2025 2:57 AM EST) Magnesium 2.2 1.6 - 2.4 mg/dL 08/23/2025 4:17 AM EST [facility] Blood Venipuncture / Unknown 08/23/2025 2:57 AM EST 08/23/2025 3:47 AM EST James Tineo MD LAB BLOOD ORDERABLES Final Re sult Performing Organization Address City/[facility]/ZIP Co de Phone Number [facility]
[address] [place] [address], * (ABNORMAL) Basic Metabolic Panel (08/23/2025 2:57 AM EST) Glucose 100(H) 65 - 99 mg/dL 08/23/2025 4:17 AM EST [facility] BUN 13.0 8.0 - 23.0 mg/dL 08/23/2025 4:17 AM EST [facility] Creatinine 0.90 0.76 - 1.27 mg/dL 08/23/2025 4:17 AM EST [facility] Sodium 140 136 - 145 mmol/L 08/23/2025 4:17 AM EST [facility] Potassium 4.1 3.5 - 5.2 mmol/L 08/23/2025 4:17 AM [facility] Chloride 109(H) 98 - 107 mmol/L 08/23/2025 4:17 AM [facility] CO2 24.1 22.0 - 29.0 mmol/L 08/23/2025 4:17 AM [facility] Calcium 8.5(L) 8.6 - 10.5 mg/dL 08/23/2025 4:17 AM [facility] BUN/Creatinine Ratio 14.4 7.0 - 25.0 08/23/2025 4:17 AM [facility] Anion Gap 6.9 5.0 - 15.0 mmol/L 08/23/2025 4:17 AM [facility] eGFR 82.7 >60.0 mL/min/1.7 3 08/23/2025 4:17 AM [facility] Blood Venipuncture / Unknown 08/23/2025 2:57 AM EST 08/23/2025 3:47 AM EST [facility] - 08/23/2025 4:17 AM EST GFR [...] not include race as a factor us James Tineo MD LAB BLOOD ORDERABLES Final Re sult [facility]
[address] [place] [address], * Telemetry Scan (08/22/2025 7:19 PM EST) [facility] ECG ORDERABLES Final Result * (ABNORMAL) Hemoglobin & Hematocrit, Blood (08/22/2025 7:12 PM EST) Hemoglobin 8.0(L) 13.0 - 17.7 g/dL 08/22/2025 7:21 PM EST [facility] Hematocrit 26.9(L) 37.5 - 51.0 % 08/22/2025 7:21 PM EST [facility] Blood Venipuncture / Unknown 08/22/2025 7:12 PM EST 08/22/2025 7:19 PM EST James Tineo MD LAB BLOOD ORDERABLES Final Re sult Performing Organization Address City/[facility]/ZIP Co de Phone Number [facility]
[address] [place] [address], * Telemetry Scan (08/22/2025 5:21 PM EST) [facility] ECG ORDERABLES Final Result * Potassium (08/22/2025 4:11 PM EST) Pathologist [facility] [place] Potassium 4.8 3.5 - 5.2 mmol/L 08/22/2025 4:47 PM EST [facility] Blood Venipuncture / Unknown 08/22/2025 4:11 PM EST 08/22/2025 4:19 PM EST James Tineo MD LAB BLOOD ORDERABLES Final Re sult Performing Organization Address City/[facility]/ZIP Co de Phone Number [facility]
[address] [place] [address], [place] [phone] * (ABNORMAL) Hemoglobin & Hematocrit, Blood (08/22/2025 6:38 AM EST) Hemoglobin 8.5(L) 13.0 - 17.7 g/dL 08/22/2025 6:54 AM EST [facility] Hematocrit 26.9(L) 37.5 - 51.0 % 08/22/2025 6:54 AM EST [facility] Blood Venipuncture / Unknown 08/22/2025 6:38 AM EST 08/22/2025 6:49 AM EST Magalie Avery APRN LAB BLOOD ORDERABLES Final Result [facility]
[address] [place] [address], * Phosphorus (08/22/2025 6:38 AM EST) Phosphorus 2.5 2.5 - 4.5 mg/dL 08/22/2025 7:14 AM EST [facility] Blood Venipuncture / Unknown 08/22/2025 6:38 AM EST 08/22/2025 6:49 AM EST us Yair Wagner MD LAB BLOOD ORDERABLES Final Resul t [facility]
[address] [place] [address], * Magnesium (08/22/2025 6:38 AM EST) Magnesium 2.1 1.6 - 2.4 mg/dL 08/22/2025 7:14 AM EST [facility] Blood Venipuncture / Unknown 08/22/2025 6:38 AM EST 08/22/2025 6:49 AM EST us Yair Wagner MD LAB BLOOD ORDERABLES Final Resul t [facility]
[address] [place] [address], * (ABNORMAL) Basic Metabolic Panel (08/22/2025 6:38 AM EST) Glucose 122(H) 65 - 99 mg/dL 08/22/2025 7:14 AM EST [facility] BUN 11.4 8.0 - 23.0 mg/dL 08/22/2025 7:14 AM EST [facility] Creatinine 0.85 0.76 - 1.27 mg/dL 08/22/2025 7:14 AM EST [facility] Sodium 140 136 - 145 mmol/L 08/22/2025 7:14 AM EST [facility] Potassium 3.6 3.5 - 5.2 mmol/L 08/22/2025 7:14 AM EST [facility] Chloride 109(H) 98 - 107 mmol/L 08/22/2025 7:14 AM EST [facility] CO2 22.6 22.0 - 29.0 mmol/L 08/22/2025 7:14 AM EST [facility] Calcium 8.8 8.6 - 10.5 mg/dL 08/22/2025 7:14 AM EST [facility] BUN/Creatinine Ratio 13.4 7.0 - 25.0 08/22/2025 7:14 AM EST [facility] Anion Gap 8.4 5.0 - 15.0 mmol/L 08/22/2025 7:14 AM EST [facility] eGFR 84.1 >60.0 mL/min/1.7 3 08/22/2025 7:14 AM EST [facility] Blood Venipuncture / Unknown 08/22/2025 6:38 AM EST 08/22/2025 6:49 AM EST [facility] - 08/22/2025 7:14 AM EST GFR [...] ORDERABLES Final Resul t Performing Organization Address City/[facility] Co de Phone Number [facility]
[address] [place] [address], * POC Glucose Once (08/22/2025 5:31 AM EST) Pathologist [facility] [place] Glucose 110 70 - 130 mg/dL 08/22/2025 5:33 AM EST [facility] Comment:Serial Number: [id number]: [id number] Blood 08/22/2025 5:31 AM EST 08/22/2025 5:33 AM EST James Tineo MD POINT OF CARE TEST ORDERABLES Final Result Performing Organization Address [facility] de Phone Number [facility]
[address] [place] [address], * ECG 12 Lead Pre-Op / Pre-Procedure (08/22/2025 3:03 AM EST) QT Interval 322 ms BH ECG QTC Interval 431 ms BH ECG 08/22/2025 3:03 AM EST 08/22/2025 4:19 PM EST Narrative BH ECG - 08/22/2025 4:19 PM EST Test [...] ventricular pacemaker Confirmed by RAMIN ZAPATA MD ([id number]) on 08/22/2025 4:19:06 PM Referred By: Confirmed [...] ventricular pacemaker Confirmed by RAMIN ZAPATA MD ([id number]) on 08/22/2025 4:19:06 PM Referred By: Confirmed By: RAMIN ZAPATA MD us Hao Fajardo MD ECG ORDERABLES Final Result ECG * (ABNORMAL) Hemoglobin & Hematocrit, Blood (08/21/2025 11:40 PM EST) Hemoglobin 8.0(L) 13.0 - 17.7 g/dL 08/22/2025 12:40 AM EST [facility] Hematocrit 25.1(L) 37.5 - 51.0 % 08/22/2025 12:40 AM EST [facility] Blood Venipuncture / Unknown 08/21/2025 11:40 PM EST 08/22/2025 12:37 AM EST us Magalie Avery APRN LAB BLOOD ORDERABLES Final Result [facility]
[address] [place] [address], * (ABNORMAL) Hemoglobin & Hematocrit, Blood (08/21/2025 6:14 PM EST) Pathologist [facility] Hemoglobin 7.9(L) 13.0 - 17.7 g/dL 08/21/2025 6:51 PM EST [facility] Hematocrit 24.9(L) 37.5 - 51.0 % 08/21/2025 6:51 PM EST [facility] Blood Venipuncture / Unknown 08/21/2025 6:14 PM EST 08/21/2025 6:48 PM EST Magalie Avery APRN LAB BLOOD ORDERABLES Final Result Performing Organization Address City/[facility]/ZIP Co de Phone Number [facility]
[address] [place] [address], * (ABNORMAL) Hemoglobin & Hematocrit, Blood (08/21/2025 12:31 PM EST) [facility] Hemoglobin 8.2(L) 13.0 - 17.7 g/dL 08/21/2025 12:46 PM EST [facility] Hematocrit 26.2(L) 37.5 - 51.0 % 08/21/2025 12:46 PM EST [facility] Blood Venipuncture / Unknown 08/21/2025 12:31 PM EST 08/21/2025 12:41 PM EST Magalie Avery APRN LAB BLOOD ORDERABLES Final Result [facility]
[address] [place] [address], * Prepare RBC, 2 Units (08/21/2025 12:10 PM EST) Pathologist [facility] [place] Product Code [id number] [facility] Unit Number [id number] BA [facility] BB LABORATORY UNIT ABO A [facility] LABORATORY UNIT RH NEG [facility] Crossmatch Interpretation Compatible [facility] Dispense Status PT [facility] LABORATORY Blood Expiration Date [facility] Blood Type Barcode 0600 [facility] Product Code [id number] [facility] Unit Number [id number] BA [facility] BB LABORATORY UNIT ABO A [facility] BB LABORATORY UNIT RH NEG [facility] Crossmatch Interpretation Compatible [facility] Dispense Status PT [facility] LABORATORY Blood Expiration Date [facility] Blood Type Barcode 0600 [facility] Other Topography unknown / Unknown 08/19/2025 4:44 PM EST Daniel Mackey MD BLOOD BANK PRODUCT ORDERABLE S Edited Result - Final Performing Organization Address City/[facility] Co de Phone Number [facility]
[address] [place] [address], * Telemetry Scan (08/21/2025 9:42 AM EST) [facility] Final Result * POC Glucose Once (08/21/2025 5:20 AM EST) Glucose 86 70 - 130 mg/dL 08/21/2025 5:22 AM EST [facility] Comment:Serial Number: [id number]: [id number] Blood 08/21/2025 5:20 AM EST 08/21/2025 5:22 AM EST James Tineo MD POINT OF CARE TEST ORDERABLES Final Result [facility]
[address] [place] [address], * (ABNORMAL) CBC Auto Differential (08/21/2025 3:14 AM EST) [facility] Signature WBC 6.69 3.40 - 10.80 10*3/mm3 08/21/2025 4:01 AM EST [facility] RBC 2.66(L) 4.14 - 5.80 10*6/mm3 08/21/2025 4:01 AM [facility] Hemoglobin 7.7(L) 13.0 - 17.7 g/dL 08/21/2025 4:01 AM [facility] Hematocrit 23.9(L) 37.5 - 51.0 % 08/21/2025 4:01 AM [facility] MCV 89.8 79.0 - 97.0 fL 08/21/2025 4:01 AM [facility] MCH 28.9 26.6 - 33.0 pg 08/21/2025 4:01 AM [facility] MCHC 32.2 31.5 - 35.7 g/dL 08/21/2025 4:01 AM [facility] RDW 14.2 12.3 - 15.4 % 08/21/2025 4:01 AM [facility] RDW-SD 45.6 37.0 - 54.0 fl 08/21/2025 4:01 AM [facility] MPV 12.6(H) 6.0 - 12.0 fL 08/21/2025 4:01 AM [facility] Platelets 130(L) 140 - 450 10*3/mm3 08/21/2025 4:01 AM [facility] Neutrophil % 69.7 42.7 - 76.0 % 08/21/2025 4:01 AM [facility] Lymphocyte % 14.9(L) 19.6 - 45.3 % 08/21/2025 4:01 AM [facility] Monocyte % 13.5(H) 5.0 - 12.0 % 08/21/2025 4:01 AM [facility] Eosinophil % 1.2 0.3 - 6.2 % 08/21/2025 4:01 AM [facility] Basophil % 0.4 0.0 - 1.5 % 08/21/2025 4:01 AM [facility] Immature Grans % 0.3 0.0 - 0.5 % 08/21/2025 4:01 AM [facility] Neutrophils, Absolute 4.66 1.70 - 7.00 10*3/mm3 08/21/2025 4:01 AM [facility] Lymphocytes, Absolute 1.00 0.70 - 3.10 10*3/mm3 08/21/2025 4:01 AM [facility] Monocytes, Absolute 0.90 0.10 - 0.90 10*3/mm3 08/21/2025 4:01 AM [facility] Eosinophils, Absolute 0.08 0.00 - 0.40 10*3/mm3 08/21/2025 4:01 AM [facility] Basophils, Absolute 0.03 0.00 - 0.20 10*3/mm3 08/21/2025 4:01 AM [facility] Immature Grans, Absolute 0.02 0.00 - 0.05 10*3/mm3 08/21/2025 4:01 AM [facility] nRBC 0.0 0.0 - 0.2 /100 WBC 08/21/2025 4:01 AM [facility] Blood Venipuncture / Unknown 08/21/2025 3:14 AM EST 08/21/2025 3:49 AM EST us James Tineo MD LAB BLOOD ORDERABLES Final Re sult [facility]
[address] [place] [address], * Phosphorus (08/21/2025 3:14 AM EST) Phosphorus 3.2 2.5 - 4.5 mg/dL 08/21/2025 4:21 AM EST [facility] Blood Venipuncture / Unknown 08/21/2025 3:14 AM EST 08/21/2025 3:51 AM EST us Yair Wagner MD LAB BLOOD ORDERABLES Final Resul t Performing Organization Address City/[facility] Co de Phone Number [facility]
[address] [place] [address], * Magnesium (08/21/2025 3:14 AM EST) Pathologist [facility] [place] Magnesium 2.4 1.6 - 2.4 mg/dL 08/21/2025 4:21 AM EST [facility] Blood Venipuncture / Unknown 08/21/2025 3:14 AM EST 08/21/2025 3:51 AM EST us Yair Wagner MD LAB BLOOD ORDERABLES Final Resul t Performing Organization Address City/[facility] de Phone Number [facility]
[address] [place] [address], * (ABNORMAL) Basic Metabolic Panel (08/21/2025 3:14 AM EST) Pathologist [facility] [place] Glucose 80 65 - 99 mg/dL 08/21/2025 4:21 AM EST [facility] BUN 19.5 8.0 - 23.0 mg/dL 08/21/2025 4:21 AM EST [facility] Creatinine 0.98 0.76 - 1.27 mg/dL 08/21/2025 4:21 AM EST [facility] Sodium 144 136 - 145 mmol/L 08/21/2025 4:21 AM EST [facility] Potassium 4.2 3.5 - 5.2 mmol/L 08/21/2025 4:21 AM EST [facility] Chloride 114(H) 98 - 107 mmol/L 08/21/2025 4:21 AM EST [facility] CO2 20.5(L) 22.0 - 29.0 mmol/L 08/21/2025 4:21 AM EST [facility] Calcium 8.6 8.6 - 10.5 mg/dL 08/21/2025 4:21 AM EST [facility] BUN/Creatinine Ratio 19.9 7.0 - 25.0 08/21/2025 4:21 AM EST [facility] Anion Gap 9.5 5.0 - 15.0 mmol/L 08/21/2025 4:21 AM [facility] eGFR 74.6 >60.0 mL/min/1.7 3 08/21/2025 4:21 AM [facility] Blood Venipuncture / Unknown 08/21/2025 3:14 AM EST 08/21/2025 3:51 AM EST [facility] - 08/21/2025 4:21 AM EST [...] not include race as a factor us Yair Wagner MD LAB BLOOD ORDERABLES Final Resul t [facility]
[address] [place] [address], * (ABNORMAL) Hemoglobin & Hematocrit, Blood (08/21/2025 12:26 AM EST) Hemoglobin 7.2(L) 13.0 - 17.7 g/dL 08/21/2025 12:40 AM EST [facility] Hematocrit 23.0(L) 37.5 - 51.0 % 08/21/2025 12:40 AM EST [facility] Blood Venipuncture / Unknown 08/21/2025 12:26 AM EST 08/21/2025 12:35 AM EST us Yair Wagner MD LAB BLOOD ORDERABLES Final Resul t Performing Organization Address [facility] de Phone Number [facility]
[address] [place] [address], * POC Glucose Once (08/20/2025 11:14 PM EST) Glucose 95 70 - 130 mg/dL 08/20/2025 11:16 PM EST [facility] Comment:Serial Number: [id number] Blood 08/20/2025 11:1 4 PM EST 08/20/2025 11:16 PM EST James Tineo MD POINT OF CARE TEST ORDERABLES Final Result Performing Organization Address [facility] de Phone Number [facility]
[address] [place] [address], * (ABNORMAL) Hemoglobin & Hematocrit, Blood (08/20/2025 7:40 PM EST) Hemoglobin 7.6(L) 13.0 - 17.7 g/dL 08/20/2025 8:17 PM EST [facility] Hematocrit 24.1(L) 37.5 - 51.0 % 08/20/2025 8:17 PM EST [facility] Blood Venipuncture / Unknown 08/20/2025 7:40 PM EST 08/20/2025 8:14 PM EST us Yair Wagner MD LAB BLOOD ORDERABLES Final Resul t Performing Organization Address [facility]/ZIP Co de Phone Number [facility]
[address] [place] [address], * POC Glucose Once (08/20/2025 5:23 PM EST) Pathologist [facility] [place] Glucose 81 70 - 130 mg/dL 08/20/2025 5:28 PM EST [facility] Comment:Serial Number: [id number]: [id number] Blood 08/20/2025 5:23 PM EST 08/20/2025 5:28 PM EST James Tineo MD POINT OF CARE TEST ORDERABLES Final Result Performing Organization Address [facility] Co de Phone Number [facility]
[address] [place] [address], * Upper GI Endoscopy (08/20/2025 3:03 PM EST) us Yair Wagner MD INTERFACE NEEDS Final Result * (ABNORMAL) Hemoglobin & Hematocrit, Blood (08/20/2025 12:18 PM EST) Pathologist [facility] [place] Hemoglobin 7.8(L) 13.0 - 17.7 g/dL 08/20/2025 12:36 PM EST [facility] Hematocrit 25.0(L) 37.5 - 51.0 % 08/20/2025 12:36 PM EST [facility] Blood Venipuncture / Unknown 08/20/2025 12:18 PM EST 08/20/2025 12:32 PM EST us Yair Wagner MD LAB BLOOD ORDERABLES Final Resul t Performing Organization Address [facility] Co de Phone Number [facility]
[address] [place] [address], * POC Glucose Once (08/20/2025 12:04 PM EST) Pathologist [facility] [place] Glucose 88 70 - 130 mg/dL 08/20/2025 12:06 PM EST [facility] Comment:Serial Number: [id number]: [id number] Blood 08/20/2025 12:0 4 PM EST 08/20/2025 12:06 PM EST James Tineo MD POINT OF CARE TEST ORDERABLES Final Result [facility]
[address] [place] [address], * (ABNORMAL) CBC Auto Differential (08/20/2025 7:35 AM EST) Pathologist [facility] [place] WBC 6.49 3.40 - 10.80 10*3/mm3 08/20/2025 8:42 AM EST [facility] RBC 2.64(L) 4.14 - 5.80 10*6/mm3 08/20/2025 8:42 AM [facility] Hemoglobin 7.4(L) 13.0 - 17.7 g/dL 08/20/2025 8:42 AM [facility] Hematocrit 23.3(L) 37.5 - 51.0 % 08/20/2025 8:42 AM [facility] MCV 88.3 79.0 - 97.0 fL 08/20/2025 8:42 AM EST [facility] MCH 28.0 26.6 - 33.0 pg 08/20/2025 8:42 AM [facility] MCHC 31.8 31.5 - 35.7 g/dL 08/20/2025 8:42 AM EST [facility] RDW 13.9 12.3 - 15.4 % 08/20/2025 8:42 AM [facility] RDW-SD 44.7 37.0 - 54.0 fl 08/20/2025 8:42 AM [facility] MPV 12.9(H) 6.0 - 12.0 fL 08/20/2025 8:42 AM [facility] Platelets 130(L) 140 - 450 10*3/mm3 08/20/2025 8:42 AM [facility] Neutrophil % 72.5 42.7 - 76.0 % 08/20/2025 8:42 AM [facility] Lymphocyte % 12.3(L) 19.6 - 45.3 % 08/20/2025 8:42 AM [facility] Monocyte % 14.3(H) 5.0 - 12.0 % 08/20/2025 8:42 AM [facility] Eosinophil % 0.2(L) 0.3 - 6.2 % 08/20/2025 8:42 AM [facility] Basophil % 0.2 0.0 - 1.5 % 08/20/2025 8:42 AM [facility] Immature Grans % 0.5 0.0 - 0.5 % 08/20/2025 8:42 AM [facility] Neutrophils, Absolute 4.71 1.70 - 7.00 10*3/mm3 08/20/2025 8:42 AM [facility] Lymphocytes, Absolute 0.80 0.70 - 3.10 10*3/mm3 08/20/2025 8:42 AM [facility] Monocytes, Absolute 0.93(H) 0.10 - 0.90 10*3/mm3 08/20/2025 8:42 AM [facility] Eosinophils, Absolute 0.01 0.00 - 0.40 10*3/mm3 08/20/2025 8:42 AM [facility] Basophils, Absolute 0.01 0.00 - 0.20 10*3/mm3 08/20/2025 8:42 AM [facility] Immature Grans, Absolute 0.03 0.00 - 0.05 10*3/mm3 08/20/2025 8:42 AM [facility] nRBC 0.3(H) 0.0 - 0.2 /100 WBC 08/20/2025 8:42 AM EST [facility] Blood Venipuncture / Unknown 08/20/2025 7:35 AM EST 08/20/2025 7:39 AM EST Magalie Avery APRN LAB BLOOD ORDERABLES Final Result Performing Organization Address City/[facility] Co de Phone Number [facility]
[address] [place] [address], * Phosphorus (08/20/2025 7:35 AM EST) Phosphorus 3.3 2.5 - 4.5 mg/dL 08/20/2025 7:59 AM EST [facility] Blood Venipuncture / Unknown 08/20/2025 7:35 AM EST 08/20/2025 7:39 AM EST us Yair Wagner MD LAB BLOOD ORDERABLES Final Resul t Performing Organization Address [facility] Co de Phone Number [facility]
[address] [place] [address], * Magnesium (08/20/2025 7:35 AM EST) Magnesium 2.1 1.6 - 2.4 mg/dL 08/20/2025 7:59 AM EST [facility] Blood Venipuncture / Unknown 08/20/2025 7:35 AM EST 08/20/2025 7:39 AM EST us Yair Wagner MD LAB BLOOD ORDERABLES Final Resul t Performing Organization Address City/[facility] de Phone Number [facility]
[address] [place] [address], * (ABNORMAL) Comprehensive Metabolic Panel (08/20/2025 7:35 AM EST) Glucose 87 65 - 99 mg/dL 08/20/2025 7:59 AM [facility] BUN 22.9 8.0 - 23.0 mg/dL 08/20/2025 7:59 AM [facility] Creatinine 0.95 0.76 - 1.27 mg/dL 08/20/2025 7:59 AM [facility] Sodium 142 136 - 145 mmol/L 08/20/2025 7:59 AM [facility] Potassium 4.3 3.5 - 5.2 mmol/L 08/20/2025 7:59 AM [facility] Chloride 113(H) 98 - 107 mmol/L 08/20/2025 7:59 AM [facility] CO2 19.5(L) 22.0 - 29.0 mmol/L 08/20/2025 7:59 AM [facility] Calcium 8.8 8.6 - 10.5 mg/dL 08/20/2025 7:59 AM [facility] Total Protein 4.9(L) 6.0 - 8.5 g/dL 08/20/2025 7:59 AM [facility] Albumin 3.6 3.5 - 5.2 g/dL 08/20/2025 7:59 AM [facility] ALT (SGPT) 8 1 - 41 U/L 08/20/2025 7:59 AM [facility] AST (SGOT) 16 1 - 40 U/L 08/20/2025 7:59 AM [facility] Alkaline Phosphatase 86 39 - 117 U/L 08/20/2025 7:59 AM [facility] Total Bilirubin 2.1(H) 0.0 - 1.2 mg/dL 08/20/2025 7:59 AM [facility] Globulin 1.3 gm/dL 08/20/2025 7:59 AM [facility] Comment:Calculated Result A/G Ratio 2.8 g/dL 08/20/2025 7:59 AM [facility] BUN/Creatinine Ratio 24.1 7.0 - 25.0 08/20/2025 7:59 AM EST [facility] Anion Gap 9.5 5.0 - 15.0 mmol/L 08/20/2025 7:59 AM EST [facility] eGFR 77.5 >60.0 mL/min/1.7 3 08/20/2025 7:59 AM EST [facility] Blood Venipuncture / Unknown 08/20/2025 7:35 AM EST 08/20/2025 7:39 AM EST Narrative [facility] - 08/20/2025 7:59 AM EST GFR [...] MD LAB BLOOD ORDERABLES Fin al Result [facility]
[address] [place] [address], * POC Glucose Once (08/20/2025 6:21 AM EST) Glucose 86 70 - 130 mg/dL 08/20/2025 6:23 AM EST [facility] Comment:Serial Number: [id number] Blood 08/20/2025 6:21 AM EST 08/20/2025 6:23 AM EST us Nancy Vail MD POINT OF CARE TEST ORDER AURA Final Result Performing Organization Address City/[facility]/ZIP Co de Phone Number [facility]
[address] [place] [address], * Transfuse RBC Infuse Each Unit Over: 2H (08/20/2025 3:50 AM EST) Daniel Mackey MD BLOOD TRANSFUSION ORDERABLES Final Result * Transfuse RBC, 2 Units Infuse Each Unit Over: 2H (08/20/2025 3:50 AM EST) Daniel Mackey MD BLOOD TRANSFUSION ORDERABLES Edited Result - Final * Calcium, Ionized (08/20/2025 12:33 AM EST) Ionized Calcium 1.22 1.15 - 1.30 mmol/L 08/20/2025 1:46 AM EST [facility] Blood Venipuncture / Unknown 08/20/2025 12:33 AM EST 08/20/2025 12:49 AM EST Marcela Graves MD LAB BLOOD ORDERABLES Final Result [facility]
[address] [place] [address], * Phosphorus (08/20/2025 12:33 AM EST) Phosphorus 3.7 2.5 - 4.5 mg/dL 08/20/2025 1:18 AM EST [facility] Blood Venipuncture / Unknown 08/20/2025 12:33 AM EST 08/20/2025 12:49 AM EST Marcela Graves MD LAB BLOOD ORDERABLES Final Result [facility]
[address] [place] [address], * Magnesium (08/20/2025 12:33 AM EST) Magnesium 2.1 1.6 - 2.4 mg/dL 08/20/2025 1:18 AM EST [facility] Blood Venipuncture / Unknown 08/20/2025 12:33 AM EST 08/20/2025 12:49 AM EST Marcela Graves MD LAB BLOOD ORDERABLES Final Result [facility]
[address] [place] [address], * (ABNORMAL) Basic Metabolic Panel (08/20/2025 12:33 AM EST) [facility] Glucose 98 65 - 99 mg/dL 08/20/2025 1:18 AM EST [facility] BUN 24.9(H) 8.0 - 23.0 mg/dL 08/20/2025 1:18 AM EST [facility] Creatinine 1.05 0.76 - 1.27 mg/dL 08/20/2025 1:18 AM EST [facility] Sodium 143 136 - 145 mmol/L 08/20/2025 1:18 AM EST [facility] Potassium 4.4 3.5 - 5.2 mmol/L 08/20/2025 1:18 AM EST [facility] Chloride 113(H) 98 - 107 mmol/L 08/20/2025 1:18 AM EST [facility] CO2 21.4(L) 22.0 - 29.0 mmol/L 08/20/2025 1:18 AM EST [facility] Calcium 9.0 8.6 - 10.5 mg/dL 08/20/2025 1:18 AM EST [facility] BUN/Creatinine Ratio 23.7 7.0 - 25.0 08/20/2025 1:18 AM EST [facility] Anion Gap 8.6 5.0 - 15.0 mmol/L 08/20/2025 1:18 AM EST [facility] eGFR 68.7 >60.0 mL/min/1.7 3 08/20/2025 1:18 AM EST [facility] Blood Venipuncture / Unknown 08/20/2025 12:33 AM EST 08/20/2025 12:49 AM EST [facility] - 08/20/2025 1:18 AM EST [...] Graves MD LAB BLOOD ORDERABLES Final Result [facility]
[address] [place] [address], * (ABNORMAL) CBC (No Diff) (08/20/2025 12:33 AM EST) WBC 5.88 3.40 - 10.80 10*3/mm3 08/20/2025 1:00 AM EST [facility] RBC 2.51(L) 4.14 - 5.80 10*6/mm3 08/20/2025 1:00 AM EST [facility] Hemoglobin 6.8(LL) 13.0 - 17.7 g/dL 08/20/2025 1:00 AM EST [facility] Hematocrit 22.7(L) 37.5 - 51.0 % 08/20/2025 1:00 AM EST [facility] MCV 90.4 79.0 - 97.0 fL 08/20/2025 1:00 AM EST [facility] MCH 27.1 26.6 - 33.0 pg 08/20/2025 1:00 AM EST [facility] MCHC 30.0(L) 31.5 - 35.7 g/dL 08/20/2025 1:00 AM EST [facility] RDW 14.2 12.3 - 15.4 % 08/20/2025 1:00 AM [facility] RDW-SD 46.2 37.0 - 54.0 fl 08/20/2025 1:00 AM [facility] MPV 12.1(H) 6.0 - 12.0 fL 08/20/2025 1:00 AM [facility] Platelets 137(L) 140 - 450 10*3/mm3 08/20/2025 1:00 AM [facility] Blood Venipuncture / Unknown 08/20/2025 12:33 AM EST 08/20/2025 12:50 AM EST Marcela Graves MD LAB BLOOD ORDERABLES Final Result Performing Organization Address [facility] Co de Phone Number [facility]
[address] [place] [address], * STAT Lactic Acid, Reflex (08/20/2025 12:33 AM EST) Lactate 1.3 0.5 - 2.0 mmol/L 08/20/2025 1:17 AM EST [facility] Comment:Falsely depressed re sults may occur on samples drawn from patients receiving N-Acetylcysteine (NAC) or Metamizole. Blood Venipuncture / Unknown 08/20/2025 12:33 AM EST 08/20/2025 12:49 AM EST Daniel Mackey MD LAB BLOOD ORDERABLES Final R esult Performing Organization Address City/[facility]/ZIP Co de Phone Number [facility]
[address] [place] [address], * POC Glucose Once (08/19/2025 11:57 PM EST) Glucose 96 70 - 130 mg/dL 08/19/2025 11:59 PM EST [facility] Comment:Serial Number: [id number] Blood 08/19/2025 11:5 7 PM EST 08/19/2025 11:59 PM EST Nancy Vail MD POINT OF CARE TEST ORDER AURA Final Result Performing Organization Address [facility] de Phone Number [facility]
[address] [place] [address] * Transfuse RBC Infuse Each Unit Over: 2H (08/19/2025 11:00 PM EST) Daniel Mackey MD BLOOD TRANSFUSION ORDERABLES Final Result * (ABNORMAL) STAT Lactic Acid, Reflex (08/19/2025 6:33 PM EST) Lactate 2.3(HH) 0.5 - 2.0 mmol/L 08/19/2025 7:19 PM EST [facility] Comment:Falsely depressed re sults may occur on samples drawn from patients receiving N-Acetylcysteine (NAC) or Metamizole. Blood Venipuncture / Unknown 08/19/2025 6:33 PM EST 08/19/2025 6:42 PM EST Daniel Mackey MD LAB BLOOD ORDERABLES Final R esult Performing Organization Address [facility] de Phone Number [facility]
[address] [place] [address], * (ABNORMAL) Hemoglobin & Hematocrit, Blood (08/19/2025 6:33 PM EST) Hemoglobin 5.9(LL) 13.0 - 17.7 g/dL 08/19/2025 6:57 PM EST [facility] Hematocrit 19.4(LL) 37.5 - 51.0 % 08/19/2025 6:57 PM EST [facility] Blood Venipuncture / Unknown 08/19/2025 6:33 PM EST 08/19/2025 6:42 PM EST Yair Wagner MD LAB BLOOD ORDERABLES Final Resul t [facility]
[address] [place] [address], * (ABNORMAL) Urinalysis, Microscopic Only - Urine, Catheter (08/19/2025 6:25 PM EST) RBC, UA 3-5(A) None Seen, 0-2 /HPF 08/19/2025 7:22 PM EST [facility] WBC, UA 0-2 None Seen, 0-2 /HPF 08/19/2025 7:22 PM EST [facility] Bacteria, UA None Seen None Seen /HPF 08/19/2025 7:22 PM EST [facility] Squamous Epithelial Cells, UA 0-2 None Seen, 0-2 /HPF 08/19/2025 7:22 PM EST [facility] Hyaline Casts, UA 13-20 None Seen /LPF 08/19/2025 7:22 PM EST [facility] Mucus, UA Moderate/2+(A) None Seen, Trace /HPF 08/19/2025 7:22 PM EST [facility] Methodology Manual Light Microscopy 08/19/2025 7:22 PM EST [facility] Urine Urinary catheter / Unknown Collection / Unknown 08/19/2025 6:25 PM EST 08/19/2025 6:42 PM EST Daniel Mackey MD URINE ORDERABLES Final Resul t [facility]
[address] [place] [address], * (ABNORMAL) Urinalysis With Microscopic If Indicated (No Culture) - Urine, Catheter (08/19/2025 6:25PM EST) Color, UA Dark Yellow(A) Yellow, Straw 08/19/2025 7:12 PM EST [facility] Appearance, UA Cloudy(A) Clear 08/19/2025 7:12 PM EST [facility] pH, UA 5.5 5.0 - 8.0 08/19/2025 7:12 PM EST [facility] Specific [place], UA >1.030(H) 1.005 - 1.030 08/19/2025 7:12 PM EST [facility] Glucose, UA Negative Negative 08/19/2025 7:12 PM EST [facility] Ketones, UA Trace(A) Negative 08/19/2025 7:12 PM EST [facility] Bilirubin, UA Negative Negative 08/19/2025 7:12 PM EST [facility] Blood, UA Negative Negative 08/19/2025 7:12 PM EST [facility] Protein, UA Trace(A) Negative 08/19/2025 7:12 PM EST [facility] Leuk Esterase, UA Trace(A) Negative 08/19/2025 7:12 PM EST [facility] Nitrite, UA Negative Negative 08/19/2025 7:12 PM EST [facility] Urobilinogen, UA 2.0 E.U./dL(A) 0.2 - 1.0 E.U./dL 08/19/2025 7:12 PM EST [facility] Urine Urinary catheter / Unknown Collection / Unknown 08/19/2025 6:25 PM EST 08/19/2025 6:42 PM EST us Daniel Mackey MD URINE ORDERABLES Final Resul t [facility]
[address] [place] [address], * (ABNORMAL) Hemoglobin & Hematocrit, Blood (08/19/2025 6:14 PM EST) Hemoglobin 5.7(LL) 13.0 - 17.7 g/dL 08/19/2025 6:27 PM EST [facility] Hematocrit 18.8(LL) 37.5 - 51.0 % 08/19/2025 6:27 PM EST [facility] Blood Line / Unknown 08/19/2025 6: 14 PM EST 08/19/2025 6:19 PM EST Yair Wagner MD LAB BLOOD ORDERABLES Final Resul t Performing Organization Address City/[facility]/ZIP Co de Phone Number [facility]
[address] [place] [address], * Blood Culture - Blood, Arm, Right (08/19/2025 5:26 PM EST) Blood Culture No growth at 5 days 08/24/2025 7:46 PM EST [facility] Blood Structure of right upper limb / Unknown Venipuncture / Unknown 08/19/2025 5:26 PM EST 08/19/2025 7:41 PM EST Daniel Mackey MD MICROBIOLOGY - GENERAL ORDER AURA Final Result Performing Organization Address City/[facility] Co de Phone Number [facility]
[address] [place] [address], * Blood Culture - Blood, Hand, Right (08/19/2025 5:17 PM EST) Blood Culture No growth at 5 days 08/24/2025 7:46 PM EST [facility] Blood Structure of right hand / Unknown Venipuncture / Unknown 08/19/2025 5:17 PM EST 08/19/2025 7:38 PM EST Narrative [facility] - 08/24/2025 7:46 PM EST Aerobic Bottle Only Daniel Mackey MD MICROBIOLOGY - GENERAL ORDER AURA Final Result Performing Organization Address City/[facility]/ZIP Co de Phone Number [facility]
[address] [place] [address], [place] [phone] * ABO RH Specimen Verification (08/19/2025 5:17 PM EST) ABO Type A 08/19/2025 5:41 PM EST [facility] RH type Negative 08/19/2025 5:41 PM EST [facility] Blood Venipuncture / Unknown 08/19/2025 5:17 PM EST 08/19/2025 5:31 PM EST Daniel Mackey MD BLOOD BANK TEST ORDERABLES F inal Result [facility]
[address] [place] [address], * ECG 12 Lead Syncope (08/19/2025 4:09 [...] ([id number]) on 08/23/2025 10:38:30 PM Referred By: ANHUM EDGAR Confirmed By: DANIEL MACKEY Procedure Note [...] has increased by 3 bpm Confirmed by DAINEL MACKEY ([id number]) on 08/23/2025 10:38:30 PM Referred By: NAHUM EDGAR Confirmed By: DANIEL MACKEY Daniel Mackey MD ECG ORDERABLES Final Result Performing Organization Address City/[facility] Co de Phone Number ECG * (ABNORMAL) High Sensitivity Troponin T 1Hr (08/19/2025 4:08 PM EST) HS Troponin T 24(H) <22 ng/L 08/19/2025 4:36 PM EST [facility] Troponin T Numeric Delta -1 ng/L 08/19/2025 4:36 PM EST [facility] Troponin T % Delta -4 Abnormal if >/= 20% 08/19/2025 4:36 PM EST [facility] Blood Venipuncture / Unknown 08/19/2025 4:08 PM EST 08/19/2025 4:14 PM EST [facility] - 08/19/2025 4:36 PM EST High [...] ORDERABLES Final R esult Performing Organization Address [facility]/ZIP Co de Phone Number [facility]
[address] [place] [address], * Type & Screen (08/19/2025 4:00 PM EST) ABO Type A 08/19/2025 5:15 PM EST [facility] RH type Negative 08/19/2025 5:15 PM EST [facility] Antibody Screen Negative 08/19/2025 5:15 PM EST [facility] T&S Expiration Date 08/22/2025 11:59:59 PM 08/19/2025 5:15 PM EST [facility] Blood Line / Unknown 08/19/2025 4: 00 PM EST 08/19/2025 4:44 PM EST Daniel Mackey MD BLOOD BANK TEST ORDERABLES E dited Result - Final Performing Organization Address [facility] Co de Phone Number [facility]
[address] [place] [address], * CT Angiogram Abdomen Pelvis (08/19/2025 3:47 [...] MD 08/19/2025 4:24 PM EST Workstation ID: [id number] Narrative 08/19/2025 4:[address] ANGIOGRAM [...] MD 08/19/2025 4:24 PM EST Workstation ID: [id number] us Daniel Mackey MD IM CT ORDERABLES Final Resu lt * CT [...] MD 08/19/2025 4:24 PM EST Workstation ID: [id number] Narrative 08/19/2025 4:[address] ANGIOGRAM [...] MD 08/19/2025 4:24 PM EST Workstation ID: [id number] us Danile Mackey MD IMG CT ORDERABLES Final Resu [...] MD 08/19/2025 4:00 PM EST Workstation ID: [id number] Narrative 08/19/2025 4:[address] HEAD [...] neck are without acute abnormality. Procedure Note Dion Rai MD - 08/19/2025 CT HEAD WO CONTRAST, [...] MD 08/19/2025 4:00 PM EST Workstation ID: [id number] us Daniel Mackey MD IMG CT ORDERABLES [...] MD 08/19/2025 4:00 PM EST Workstation ID: [id number] Narrative 08/19/2025 4:[address] HEAD [...] neck are without acute abnormality. Procedure Note Dion Rai MD - 08/19/2025 CT HEAD WO CONTRAST, [...] MD 08/19/2025 4:00 PM EST Workstation ID: [id number] us Daniel Mackey MD IM CT ORDERABLES Final Resu lt * (ABNORMAL) POC Glucose Once (08/19/2025 3:19 PM EST) [facility] Signature Glucose 138(H) 70 - 130 mg/dL 08/19/2025 3:21 PM EST [facility] Comment:Serial Number: [id number]: [id number] [place] Comment 1 Follow unit protocol 08/19/2025 3:21 PM EST [facility] Blood 08/19/2025 3:19 PM EST 08/19/2025 3:21 PM EST Daniel Mackey MD POINT OF CARE TEST ORDERABLE S Final Result Performing Organization Address City/[facility]/ZIP Co de Phone Number [facility]
[address] [place] [address], * POC Creatinine (08/19/2025 3:16 PM EST) Creatinine 1.20 0.60 - 1.30 mg/dL 08/19/2025 3:33 PM EST [facility] Comment:Serial Number: [id number] 1Operator: [id number] Blood 08/19/2025 3:16 PM EST 08/19/2025 3:33 PM EST Daniel Mackey MD POINT OF CARE TEST ORDERABLE S Final Result Performing Organization Address City/[facility] Co de Phone Number [facility] [place] [address], * (ABNORMAL) Protime-INR (08/19/2025 3:08 PM EST) Protime 23.8(H) 12.2 - 15.3 Seconds 08/19/2025 6:02 PM EST [facility] INR 1.98(H) 0.89 - 1.12 08/19/2025 6:02 PM EST [facility] Blood Venipuncture / Unknown 08/19/2025 3:08 PM EST 08/19/2025 3:20 PM EST Nancy Vail MD LAB BLOOD ORDERABLES Fin al Result [facility]
[address] [place] [address], * Procalcitonin (08/19/2025 3:08 PM EST) Procalcitonin 0.05 0.00 - 0.25 ng/mL 08/19/2025 7:35 PM EST [facility] Blood Venipuncture / Unknown 08/19/2025 3:08 PM EST 08/19/2025 3:20 PM EST Narrative [facility] - 08/19/2025 7:35 PM [...] Day 4 values are available. Refer to [email or web address]-imk-[email or web address] Change in PCT <=80% A decrease of [...] MD LAB BLOOD ORDERABLES Final R esult [facility]
[address] [place] [address], * (ABNORMAL) Lactic Acid, Plasma (08/19/2025 3:08 PM EST) Pathologist [facility] Lactate 3.5(HH) 0.5 - 2.0 mmol/L 08/19/2025 6:23 PM EST [facility] Comment:Falsely depressed re sults may occur on samples drawn from patients receiving N-Acetylcysteine (NAC) or Metamizole. Blood Venipuncture / Unknown 08/19/2025 3:08 PM EST 08/19/2025 3:20 PM EST Daniel Mackey MD LAB BLOOD ORDERABLES Final R esult [facility]
[address] [place] [address], * (ABNORMAL) CBC Auto Differential (08/19/2025 3:08 PM EST) [facility] WBC 7.47 3.40 - 10.80 10*3/mm3 08/19/2025 3:26 PM EST [facility] RBC 2.54(L) 4.14 - 5.80 10*6/mm3 08/19/2025 3:26 PM EST [facility] Hemoglobin 6.8(LL) 13.0 - 17.7 g/dL 08/19/2025 3:26 PM [facility] Hematocrit 22.1(L) 37.5 - 51.0 % 08/19/2025 3:26 PM EST [facility] MCV 87.0 79.0 - 97.0 fL 08/19/2025 3:26 PM [facility] MCH 26.8 26.6 - 33.0 pg 08/19/2025 3:26 PM EST [facility] MCHC 30.8(L) 31.5 - 35.7 g/dL 08/19/2025 3:26 PM [facility] RDW 14.4 12.3 - 15.4 % 08/19/2025 3:26 PM [facility] RDW-SD 45.7 37.0 - 54.0 fl 08/19/2025 3:26 PM [facility] MPV 12.2(H) 6.0 - 12.0 fL 08/19/2025 3:26 PM [facility] Platelets 201 140 - 450 10*3/mm3 08/19/2025 3:26 PM [facility] Neutrophil % 79.4(H) 42.7 - 76.0 % 08/19/2025 3:26 PM [facility] Lymphocyte % 9.9(L) 19.6 - 45.3 % 08/19/2025 3:26 PM [facility] Monocyte % 10.0 5.0 - 12.0 % 08/19/2025 3:26 PM [facility] Eosinophil % 0.3 0.3 - 6.2 % 08/19/2025 3:26 PM [facility] Basophil % 0.1 0.0 - 1.5 % 08/19/2025 3:26 PM [facility] Immature Grans % 0.3 0.0 - 0.5 % 08/19/2025 3:26 PM [facility] Neutrophils, Absolute 5.93 1.70 - 7.00 10*3/mm3 08/19/2025 3:26 PM [facility] Lymphocytes, Absolute 0.74 0.70 - 3.10 10*3/mm3 08/19/2025 3:26 PM [facility] Monocytes, Absolute 0.75 0.10 - 0.90 10*3/mm3 08/19/2025 3:26 PM [facility] Eosinophils, Absolute 0.02 0.00 - 0.40 10*3/mm3 08/19/2025 3:26 PM [facility] Basophils, Absolute 0.01 0.00 - 0.20 10*3/mm3 08/19/2025 3:26 PM [facility] Immature Grans, Absolute 0.02 0.00 - 0.05 10*3/mm3 08/19/2025 3:26 PM [facility] nRBC 0.3(H) 0.0 - 0.2 /100 WBC 08/19/2025 3:26 PM EST [facility] Blood Venipuncture / Unknown 08/19/2025 3:08 PM EST 08/19/2025 3:20 PM EST Daniel Mackey MD LAB BLOOD ORDERABLES Final R esult [facility]
[address] [place] [address], * Light Blue Top (08/19/2025 3:08 PM EST) Extra Tube Hold for add-ons. 08/19/2025 3:31 PM EST [facility] Comment:Auto resulted Blood Venipuncture / Unknown 08/19/2025 3:08 PM EST 08/19/2025 3:20 PM EST Daniel Mackey MD LAB BLOOD ORDER ONLY Final R esult Performing Organization Address City/[facility]/ZIP Co de Phone Number [facility]
[address] [place] [address], * Hwang Top (08/19/2025 3:08 PM EST) Extra Tube Hold for add-ons. 08/19/2025 3:31 PM EST [facility] Comment:Auto resulted. Blood Venipuncture / Unknown 08/19/2025 3:08 PM EST 08/19/2025 3:20 PM EST us Daniel Mackey MD LAB BLOOD ORDER ONLY Final R esult Performing Organization Address City/[facility]/ZIP Co de Phone Number [facility]
[address] [place] [address], * Gold Top - SST (08/19/2025 3:08 PM EST) Extra Tube Hold for add-ons. 08/19/2025 3:31 PM EST [facility] Comment:Auto resulted. Blood Venipuncture / Unknown 08/19/2025 3:08 PM EST 08/19/2025 3:20 PM EST Daniel Mackey MD LAB BLOOD ORDER ONLY Final R esult Performing Organization Address City/[facility]/ZIP Co de Phone Number [facility]
[address] [place] [address], [place] [phone] * Lavender Top (08/19/2025 3:08 PM EST) Extra Tube hold for add-on 08/19/2025 3:31 PM EST [facility] Comment:Auto resulted Blood Venipuncture / Unknown 08/19/2025 3:08 PM EST 08/19/2025 3:20 PM EST us Daniel Mackey MD LAB BLOOD ORDER ONLY Final R esult Performing Organization Address [facility] Co de Phone Number [facility]
[address] [place] [address], [place] [phone] * Green Top (Gel) (08/19/2025 3:08 PM EST) Extra Tube Hold for add-ons. 08/19/2025 3:31 PM EST [facility] Comment:Auto resulted. Blood Venipuncture / Unknown 08/19/2025 3:08 PM EST 08/19/2025 3:20 PM EST us Daniel Mackey MD LAB BLOOD ORDER ONLY Final R esult Performing Organization Address City/[facility] Co de Phone Number [facility]
[address] [place] [address], [place] [phone] * (ABNORMAL) High Sensitivity Troponin T (08/19/2025 3:08 PM EST) [facility] HS Troponin T 25(H) <22 ng/L 08/19/2025 3:41 PM EST [facility] Blood Venipuncture / Unknown 08/19/2025 3:08 PM EST 08/19/2025 3:20 PM EST Narrative [facility] - 08/19/2025 3:41 PM [...] MD LAB BLOOD ORDERABLES Final R esult [facility]
[address] [place] [address], * Magnesium (08/19/2025 3:08 PM EST) [facility] Magnesium 2.3 1.6 - 2.4 mg/dL 08/19/2025 3:43 PM EST [facility] Blood Venipuncture / Unknown 08/19/2025 3:08 PM EST 08/19/2025 3:20 PM EST Daniel Mackey MD LAB BLOOD ORDERABLES Final R esult Performing Organization Address City/[facility]/ZIP Co de Phone Number [facility]
[address] [place] [address], * (ABNORMAL) Comprehensive Metabolic Panel (08/19/2025 3:08 PM EST) [facility] Glucose 165(H) 65 - 99 mg/dL 08/19/2025 3:43 PM [facility] BUN 27.2(H) 8.0 - 23.0 mg/dL 08/19/2025 3:43 PM [facility] Creatinine 1.23 0.76 - 1.27 mg/dL 08/19/2025 3:43 PM [facility] Sodium 141 136 - 145 mmol/L 08/19/2025 3:43 PM [facility] Potassium 5.4(H) 3.5 - 5.2 mmol/L 08/19/2025 3:43 PM [facility] Comment:Specimen hemolyzed. Result may be falsely elevated. Chloride 109(H) 98 - 107 mmol/L 08/19/2025 3:43 PM [facility] CO2 20.1(L) 22.0 - 29.0 mmol/L 08/19/2025 3:43 PM [facility] Calcium 9.1 8.6 - 10.5 mg/dL 08/19/2025 3:43 PM [facility] Total Protein 5.6(L) 6.0 - 8.5 g/dL 08/19/2025 3:43 PM [facility] Albumin 3.8 3.5 - 5.2 g/dL 08/19/2025 3:43 PM [facility] ALT (SGPT) 9 1 - 41 U/L 08/19/2025 3:43 PM [facility] AST (SGOT) 20 1 - 40 U/L 08/19/2025 3:43 PM [facility] Comment:Specimen hemolyzed. Result may be falsely elevated. Alkaline Phosphatase 116 39 - 117 U/L 08/19/2025 3:43 PM [facility] Total Bilirubin 0.9 0.0 - 1.2 mg/dL 08/19/2025 3:43 PM [facility] Globulin 1.8 gm/dL 08/19/2025 3:43 PM [facility] Comment:Calculated Result A/G Ratio 2.1 g/dL 08/19/2025 3:43 PM EST [facility] BUN/Creatinine Ratio 22.1 7.0 - 25.0 08/19/2025 3:43 PM EST [facility] Anion Gap 11.9 5.0 - 15.0 mmol/L 08/19/2025 3:43 PM EST [facility] eGFR 56.8(L) >60.0 mL/min/1.7 3 08/19/2025 3:43 PM EST [facility] Blood Venipuncture / Unknown 08/19/2025 3:08 PM EST 08/19/2025 3:20 PM EST Narrative [facility] - 08/19/2025 3:43 PM EST GFR [...] MD LAB BLOOD ORDERABLES Final R esult [facility]
[address] [place] [address], * ECG 12 Lead Syncope (08/19/2025 3:01 [...] * Telemetry Scan (08/19/2025 3:01 PM EST) [facility] ORDERABLES Final Result documented in this encounter Visit Diagnoses Not on filedocumented in this encounter Admitting Diagnoses Diagnosis GI [...] Given 08/20/2025 10:19 PM EST 650 mg apixaban (ELIQUIS) tablet 5 mg 5 mg, [...] movement after 12 hours. Hold for diarrhea carvedilol (COREG) tablet 25 mg 25 mg, [...] 5 mg, Oral, Nightly, First dose on Sat08/21/25 at 2100 Given 08/24/2025 8:29 PM EST 5 mg Given 08/23/2025 9:31 PM EST 5 mg Given 08/22/2025 9:00 PM EST 5 mg melatonin tablet 5 mg 5 mg, Oral, Nightly PRN, Sleep, Starting on 08/22/25 at 205 Given 08/22/2025 9:00 PM EST 5 mg nitroglycerin (NITROSTAT) SL tablet 0.4 mg 0.4 [...] THEN promethazine IF ondansetron Ineffective. pantoprazole (PROTONIX) EC tablet 40 mg 40 [...] Given 08/24/2025 5:04 PM EST 40 mg polyethylene glycol (MIRALAX) packet 17 g 17 g, Oral, Daily PRN, Constipation, Use if senna-docusate is ineffective, Starting on Sat08/20/25 at 0820, Use if no bowel movement after 12 hours. Mix in 6-8 ounces of water. Use 4-8 ounces of water, tea, or juice for each 17 gram dose. Given 08/23/2025 4:51 PM EST 17 g Potassium Replacement - Follow Nurse / BPA Driven Protocol Open Order & Select [facility] Electrolyte Replacement Protocol Algorithm to View Details sennosides-docusate (PERICOLACE) 8.6-50 MG per tablet 2 tablet 2 tablet, Oral, 2 Times Daily PRN, Constipation, Starting on Sat08/20/25 at 0820, HOLD MEDICATION IF PATIENT HAS HAD BOWEL MOVEMENT. Start bowel management regimen if patient has not had a bowel movement after 12 hours. Given 08/22/2025 11:27 AM EST 2 tablets sucralfate (CARAFATE) tablet 1 g 1 g, [...] Indications: Atrial Fibrillation - requiring full anticoagulation 102 (Given - Provider: Chelly Mancia RN)2028 (Given [...] RN) 1151 (Not Given - Provider: Chelly Macnia RN - Reason: Medication not available) carvedilol (COREG) tablet 25 mg 25 mg, Oral, 2 Times Daily With Meals, First dose (after last modification) on Sat08/24/25 at 1800, Hold for SBP less than 100, DBP less than 60, or heart rate less than 50. If a dose is held, please contact the provider. Give with food. 1800 (Due) 0824 (Given - Provider: Ceci Tafoya, BRITTANY) donepezil (ARICEPT) tablet 5 mg 5 mg, Oral, Nightly, First dose on Sat08/21/25 at 2100 2131 (Given - Provider: Luz Lira, BRITTANY) 2028 (Given - Provider: Joe Vickers RN) hydrALAZINE (APRESOLINE) tablet 25 mg (COMPLETED) 25 mg, Oral, Once, On Sat08/24/25 at 1215, For 1 dose, Hold for SBP less than 100, DBP less than 60. Caution: Look alike/sound alike drug alert 1149 (Given - Provider: Chelly Mancia RN) mupirocin (BACTROBAN) 2 % nasal ointment 1 [...] with warm soapy water or use hand draw bench operator. 3. Open the tube of mupirocin 2%. [...] together and massage gently for 60 seconds. ([facility]) 8576 (Given - Provider: Heydi Montano RN) pantoprazole (PROTONIX) EC tablet 40 mg (CANCELED) 40 mg, Oral, Every Hydrodynamicist, First dose on Sat08/21/25 at 0600, For 30 doses, Do not crush or chew the capsules or tablets. The drug may not work as designed if the capsule or tablet is crushed or chewed. Swallow whole. Swallow whole; do not crush, split, or chew. 0519 (Given - Provider: Chaitanya Bourgeosi RN) 0638 (Given - Provider: Luz Lira [...] whole; do not crush, split, or chew. 1703 (Given - Provider: Chelly Mancia RN) 08 (Given - Provider: Ceci Tafoya RN) sucralfate [...] Lira RN) 1022 (Given - Provider: Chelly Mancia RN)1149 (Given - Provider: Chelly Mancia RN)170 (Given [...] PRN, Sleep, Starting on 08/22/25 at 2053 nitroglycerin (NITROSTAT) SL tablet 0.4 mg 0.4 [...] BPA Driven Protocol Open Order & Select [facility] Electrolyte Replacement Protocol Algorithm to View Details [...] diarrhea documented in this encounter Care Teams Ward Aide Relationship Specialty Start Date End Date Danisha Nguyen APRN [address] [place], [place] [id number] PCP - General Family Medicine 02/05/24 documented as of this encounter
--- OUTSIDE RECORDS SUMMARY | 2025-08-20 15:28 | XMS_ITS | Encounter Summary ---
[facility] Address [address] [place] [address] Care Team Providers Care Inbound Ingredient Logistics Specialist Name Role Phone Danisha Nguyen TR Primary Care Provider [phone] Reason for Visit * Auth/Cert Specialty Diagnoses / Procedures Referred By Contac t Referred To Contact Referral ID Status Reason Start Date Expiration Date Visits Re quested Visits Authorized [id number] 1 1 Encounter Details Date Type Department Care Team (Late st Contact Info) Description 08/20/2025 3:28 PM EST Anesthesia Event [facility] [address] [place] [address] Luc Pedroza MD [address] [place] [address] Hao Fajardo MD [address] [place] [address] Anesthesia Record Procedure Summary Procedure Name Responsible Anesthesiologist Anesthesia Start Time Anesthesia Stop Time ESOPHAGOGASTRODUODENOSCOPY Luc Pedroza MD 08/20/25 1 528 08/20/25 1623 Events Date Time Event Comment 08/20/2025 0703 1528 AN Equip Check 1528 An Start The patient was reevaluated immediately before moderate or deep sedation use and before anesthesia induction. 1528 An Start Data 1540 An Induction 1623 an stop data 1623 Handoff to RN The following has been completed: 1. Identification of Patient, carbajal family member(s) or patient surrogate 2. Identification of the responsible Practitioner (primary service) 3. Discussion of the pertinent/attainable medical history 4. Discussion of the surgical/procedure course (procedure, reason for surgery, procedure performed) 5. Intraoperative anesthetic management and issue/concerns to include things such as airway, hemodynamics, narcotic, sedation level and paralytic management and intravenous fluids/blood products and urine output during the procedure 6. Expectations/Plans for the early post-procedure period to include things such as anticipated course (anticipatory guidance), complications, need for laboratory or ECG and medication administration 7. Opportunity for questions and acknowledgment of understanding of report from the receiving PACU/ICU team 1623 An Stop Meds Name Total lidocaine PF 1% 1 % 50 mg Propofol 500 MG/50ML 90.86 mg lactated ringers infusion 0 mL * Agents Name O2 N2O Air Sevoflurane Inspired Sevoflurane * Blood No blood administrations on file. Lines, Drains, and Airways Type Details Placement Removal Peripheral IV Placement Date: 07/25 04/16; Placement Time: 152; Catheter Size: 20 G; Orientation: Left; Location: Antecubital; Site Prep: Chlorhexidine; Technique: Anatomical landmarks; Insertion Attempts: 1; Patient Tolerance: Tolerated well; Removal Date: 08/22/25; Removal Time: 1000 08/19/25 1521 by Michelle Escobar RN 08/22/25 1000 by Heydi Montano RN Peripheral IV Placement Date: 07/25 04/16; Placement Time: 1940; Catheter Size: 20 G; Orientation: Right; Location: Antecubital; Site Prep: Chlorhexidine; Technique: Anatomical landmarks; Insertion Attempts: 1; Patient Tolerance: Tolerated well; Removal Date: 08/21/25; Removal Time: 17308/19/25 194 by Michelle Escobar RN 08/21/251729 by Heydi Montano RN Peripheral IV Placement Date: 07/25 04/16; Placement Time: 2108; Catheter Size: 20 G; Orientation: Anterior, Left; Location: Forearm; Site Prep: Chlorhexidine; Technique: Anatomical landmarks; Inserted by: Cece SOTO; Insertion Attempts: 1; Patient Tolerance: Tolerated well; Removal Date: 08/20/25; Removal Time: 199908/19/252108 by Rosario Sales RN 08/20/251999 by Yari Cardenas RN documented in this encounter Social History Tobacco Use Types Packs/Day Years [...] on file documented as of this encounter OR Notes * Anesthesia Postprocedure Evaluation - Olya Pham CRNA - 08/20/2025 4:24 PM EST Patient: Valdez Grier Procedure Summary Date: 08/20/25 Room / Location: [facility] Anesthesia Start: 1528 Anesthesia Stop: 1622 Procedure: ESOPHAGOGASTRODUODENOSCOPY Diagnosis: Surgeons: Yair Wagner MD Provider: Luc Pedroza MD Anesthesia Type: general ASA Status: 4 Anesthesia Type: general Vitals Vitals Value Taken Time BP 145/65 08/20/25 16:13 Temp 97.2 Pulse 87 08/20/25 16:13 Resp 18 08/20/25 16:13 SpO2 95 % 08/20/25 16:13 Post Anesthesia Care and Evaluation Patient location during evaluation: PACU Patient participation: complete - patient participated Level of consciousness: awake and alert Pain score: 0 Pain management: adequate Airway patency: patent Anesthetic complications: No anesthetic complications PONV Status: none Cardiovascular status: hemodynamically stable and acceptable Respiratory status: nonlabored ventilation, acceptable and nasal cannula Hydration status: acceptable * Anesthesia Preprocedure Evaluation - Luc Pedroza MD - 08/20/2025 7:02 AM EST Anesthesia Evaluation Patient summary reviewed and Nursing notes reviewed NPO Solid Status: Waived due to emergency NPO Liquid Status: Waived due to emergency Airway Mallampati: I TM distance: >3 FB Neck ROM: full No difficulty expected Dental Pulmonary (+) ,sleep apnea Cardiovascular ECG reviewed PT is on anticoagulation therapy (+) pacemaker pacemaker, hypertension, valvular problems/murmurs MR, CAD, CABG, hyperlipidemia, carotid artery disease Neuro/Psych (+) dizziness/light headedness, syncope (-) CVA GI/Hepatic/Renal/Endo (+) GI bleeding Musculoskeletal 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 Plan discussed with RIANNA. CODE STATUS: documented in this encounter Plan of Treatment Upcoming Encounters Date Type Department Care Team (Late st Contact Info) Description 09/20/2025 1:15 PM EST Office Visit [facility] [address] [place] [address] [place] [phone] Huang Valdez MD [address] [place] [address] [place] [phone] 09/29/2025 2:45 PM EST Office Visit [facility] [address] [place] [address] [place] [phone] Willow Rodgers APRN [address] [place] [id number] 09/29/2025 2:45 PM EST Clinical Support No Requirements [facility] [address] [facility] [place] [phone] documented as of this encounter Visit Diagnoses Not on filedocumented in this encounter Administered Medications Inactive Administered Medications - up to 3 most recent administrations Medication Order MAR Action Action Date Dose Rate Site lactated ringers infusion Intravenous, Continuous PRN, Starting on Sat08/20/25 at 1528 New Bag 08/20/2025 3:28 PM EST lidocaine PF 1% (XYLOCAINE) injection Intravenous, As Needed, Starting on Sat08/20/25 at 1540 Given 08/20/2025 3:40 PM EST 50 mg Propofol (DIPRIVAN) injection Intravenous, Continuous PRN, Starting on Sat08/20/25 at 1540 New Bag 08/20/2025 3:40 PM EST 50 mcg/kg/min 20.19 mL/hr documented in this encounter Care Teams Inbound Ingredient Logistics Specialist Relationship Specialty Start Date End Date Danisha Nguyen APRN [address] [place] [phone] PCP - General Family Medicine 02/05/24 documented as of this encounter
--- OUTSIDE RECORDS SUMMARY | 2025-08-27 13:30 | XMS_ITS | Encounter Summary ---
Author Organization Healthcare Address [address] 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 (CMS/HCC) Social History Tobacco Use Types Packs/Day Years Used Date Smoking Tobacco: Former Cigarettes Smokeless Tobacco: Never Alcohol Use Standard Drinks/Week Comments Not Currently 0 (1 standard drink = 0.6 oz pur e alcohol) Sex and Gender Information Value Date Recorded Sex Assigned at Not on file Legal Sex Male 7:36 PM EDT Gender Identity Not on file Sexual Orientation Not on file documented as of this encounter Last Filed Vital Signs Vital Sign Reading Time Taken Comments Blood Pressure 116/69 08/27/2025 1:33 PM EST Pulse 107 08/27/2025 1:33 PM EST Temperature - - Respiratory Rate 18 08/27/2025 1:33 PM EST Oxygen Saturation 100% 08/27/2025 1:33 PM EST Inhaled Oxygen Concentration - - Weight 64.4 kg (142 lb) 08/27/2025 1:33 PM EST Height 165.1 cm (5' 5 ) 08/27/2025 1:33 PM EST Body Mass Index 23.63 08/27/2025 1:33 PM EST documented in this encounter Miscellaneous Notes * Patient Instructions - Huang Solis MD - 08/27/2025 1:30 PM EST 1. Anemia. He received 2 units of blood due to anemia, which has contributed to his weakness and falls. His blood count was 8.7 on Saturday morning. He did not eat or drink much yesterday, exacerbating his weakness. 2. Atrial fibrillation. He has a history of atrial fibrillation and is scheduled to see his linux developer on the of this month for a 6-month follow-up and pacemaker check. 3. Alzheimer's disease. 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 He has been on donepezil since January 2025 but has not been taking it consistently. A prescription for donepezil 10 mg orally for a year, with a 90-day supply, will be sent to his mail-order pharmacy ([facility] in [place], [place]). Information packets will be provided to help get involved with community resources and support systems. In about 3 to 4 months, memantine (Namenda) will be added to his treatment regimen. documented in this encounter Plan of Treatment Upcoming Encounters Date Type Department Care Team (Late st Contact Info) Description 12/31/2025 3:00 PM EDT Office Visit [facility] [place] [facility] [address] [place] [id number] Huang Solis MD [address] [place] [id number] documented as of this encounter Visit Diagnoses Diagnosis Major neurocognitive disorder (CMS/HCC)- Primary Late onset Alzheimer's disease without behavioral disturbance (CMS/HCC) documented in this encounter Additional Health Concerns Assessment Noted Time A fall risk assessment has been complete d for the patient 04/22/2025 2:17 PM EDT A Body Mass Index follow-up plan has been documented for the patient 08/27/2025 2:12 PM EST documented as of this encounter Care Teams Slab Inspector Relationship Specialty Start Date End Date Danisha Nguyen APRN [address] [place] [address] PCP - General 08/26/25 documented as of this encounter
--- OUTSIDE RECORDS SUMMARY | 2025-09-06 12:30 | XMS_ITS | Encounter Summary ---
Author Organization [facility] Address [address] [place] [address] Care Team Providers Care Head Screen Worker Name Role Phone Dansiha Nguyen Kimberlyn ARMANDO Primary Care Provider [phone] Reason for Referral * Consultation (Routine) - Authorized Specialty Diagnoses / Procedures Referred By Contradha t Referred To Contact Hematology and Oncology Diagnoses Pulmonary nodule 1 cm or greater in diameter Iron deficiency anemia due to chronic blood loss Procedures AK OFFICE/OUTPATIENT NEW MODERATE MDM 45 MINUTES Anita Alvarenga MD [address] [place] [address] Phone: tel: fax: Robert Thakur MD [address] [address] Phone: tel: fax: Referral ID Status Reason Start Date Expiration Date V isits Requested Visits Authorized [id number] Authorized 09/06/2025 12/06/2026 1 1 Reason for Visit * Reason Comments Pacemaker Check Hospital Follow Up Visit Pt states he wa s recently in the hospital on 08/19/25 at for GI bleeding. He is having black stools the past 2 days. Also had labs drawn at [facility] in [place] last wk. Also has mid back pain that started about 2 yrs ago. He was seeing Dr. Juares. Pain has never gotten better. Arabella also states that the pt received a letter from about an abnormal CT scan chest that he had done while in the hosp. Edema Pt states he is here today for swelling bilateral legs and feet for the past 3 days. 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 Not on file Preferred Language Macedonian 08/23/2025 Sex and Gender Information Value Date Recorded Sex Assigned at Not on file Legal Sex Male 1:10 PM EST Gender Identity Not on file Sexual Orientation Not on file documented as of this encounter Last Filed Vital Signs Vital Sign Reading Time Taken Comments Blood Pressure 118/64 09/06/2025 12:37 PM EST Pulse 76 09/06/2025 12:37 PM EST Temperature - - Respiratory Rate - - Oxygen Saturation 98% 09/06/2025 12:37 PM EST Inhaled Oxygen Concentration - - Weight 64.9 kg (143 lb) 09/06/2025 12:37 PM EST Height 167.6 cm (5' 6 ) 09/06/2025 12:37 PM EST Body Mass Index 23.08 09/06/2025 12:37 PM EST documented in this encounter Patient Instructions * Patient Instructions* Anita Alvarenga MD - 09/06/2025 12:30 PM EST Lab work at [facility] [place], get done later this week for blood counts and iron studies and following dehydration Referral to Dr. Thakur, hematology/oncology, for pulmonary nodules and monitoring to see if he needs iron infusion. Go ahead and stop repatha as his cholesterol looked good and its hard to remember Try to stay on eliquis for now, but stop aspirin. documented in this encounter Progress Notes * Anita Alvarenga MD - 09/06/2025 12:30 PM EST Images from the original note were not included. [facility] Provider Note Date: 09/06/2025 Name: Valdez Cordero : 1935 PCP: Danisha Nguyen APRN Chief Complaint Patient presents with ??? Pacemaker Check ??? Hospital Follow Up Visit Pt states he was recently in the hospital on 08/19/25 at for GI bleeding. He is having black stools the past 2 days. Also had labs drawn at [facility] in [place] last wk. Also has mid back pain that started about 2 yrs ago. He was seeing Dr. Juares. Pain has never gotten better. Arabella also states that the pt received a letter from about an abnormal CT scan chest that he had done while inthe hosp. ??? Edema Pt states he is here today for swelling bilateral legs and feet for the past 3 days. Subjective History of Present Illness Valdez Grier is a 89 y.o. male who presents today for CAD, a-fib Pacemaker interrogation today Has been in the hospital at [facility] recently for GI bleed. Currently states that he has black stools for past 2 days.Had 2 pints of blood. Eliquis was stopped but was started back before coming home.Labs drawn at [facility] in [place] last week.Called and they should be sending results however did report hemoglobin at 8.6 and was 8.7 when discharged. Having terrible back pain.Last 2 years states that she does not know who to go to. Thinks he may need injections. No Chest pain does have occasional palpitations No Shortness of air Lightheadedness, syncope or falls Swelling for past 3 days in legs and feet. Was slick and firm all the way up to knees. Reports thatthe left seemed worse than the other. Did have a fall due to weakness. That is when he was found to be anemic. Is not eating and drinking very little. Was started on Aricept and is wondering if this could be a side effect of that medication Ex and POA is wondering with memory problems if can come off Repatha. He had been out for a while and was not taking but did not tell her. She figured out that they was not sending and did call and got more but thinks that it would be better if he did not have to keep up with that. is having to stay with him now due to his memory. Would like [place] 09/06/2025 Updated with all issues addressed. Cardiology History -Coronary artery disease with history of CABG in 1986 and stenting to mid LAD in 2005 and XIMENA to distal SVG-PDA and PTCA to proximal ISR of SVG-PDA in 2018. -[facility] 07/20/22 LMCA: Distal smooth plaque with mild stenosis 25-50%. LAD: Proximal segment pre-existing stent with mild diffuse ISR and associated mild in-stent and in-segment stenosis 0-25%. LCx: MD1itgufbgy stenosis 70-90%. This a small-moderate sized artery [...] was not engaged. -St Jl pacemaker implanted 2017 for sick sinus syndrome/sinus node dysfunction. -moderate mitral regurgitation - last echo 03/08/25 -persistent a fib- on eliquis -GI bleed 07/2025 requiring hospitalization Allergies Allergen Reactions ??? Niacin Unknown - Low Severity ??? Penicillins Unknown - Low Severity 1per pt to RN pt states that he hasn't taken it for 50 years, but it caused a high temp & high fever ??? Pitavastatin Unknown - Low Severity Other reaction(s): Muscle spasm, Muscle stiffness 3Info obtained from Dr Pitts' office [place], [place] ??? Pravastatin Unknown - Low Severity Other reaction(s): muscle weakness, muscle weakness ??? Rosuvastatin Unknown - Low Severity Other reaction(s): Muscle spasm, Muscle stiffness 2Info obtained from Dr Pitts' office [place], [place] ??? Simvastatin Unknown - Low Severity Other reaction(s): elevated lft s, elevated lft s ??? Tetracycline Nausea And Vomiting ??? Welchol [Colesevelam] Unknown - Low Severity Current Outpatient Medications: ??? alfuzosin (UROXATRAL) 10 MG 24 hr tablet, Take 1 tablet by mouth Daily., Disp: , Rfl: ??? apixaban (ELIQUIS) 5 MG tablet tablet, Take 1 tablet by mouth 2 (Two) Times a Day., Disp: 180 tablet, Rfl: 3 ??? aspirin 81 MG EC tablet, Take 1 tablet by mouth Daily., Disp: , Rfl: ??? carvedilol (COREG) 25 MG tablet, TAKE 1 AND 1/2 TABLETS TWICE DAILY, Disp: 270 tablet, Rfl: 3 ??? donepezil (ARICEPT) 10 MG tablet, Take 1 tablet by mouth., Disp: , Rfl: ??? nitroglycerin (NITROSTAT) 0.4 MG SL tablet, Place 1 tablet under the tongue Every 5 (Five) Minutes As Needed for Chest Pain., Disp: 30 tablet, Rfl: 5 ??? pantoprazole (PROTONIX) 40 MG EC tablet, Take 1 tablet by mouth Daily for 90 days., Disp: 30 tablet, Rfl: 2 ??? tamsulosin (FLOMAX) 0.4 MG capsule 24 hr capsule, , Disp: , Rfl: ??? ferrous sulfate 325 (65 FE) MG tablet, Take 1 tablet by mouth Daily With Breakfast., Disp: 30 tablet, Rfl: 11 Past Medical History: Diagnosis Date ??? Anemia ??? CAD (coronary artery disease) ??? GI bleed ??? Hyperlipidemia ??? Hypertension ??? Mitral valve prolapse ??? Pacemaker ??? Sleep apnea ABH 9; intolerant to CPAP/BiPAP Past Surgical History: Procedure Laterality Date ??? CAROTID STENT ??? CORONARY ARTERY BYPASS GRAFT ??? CYSTOSCOPY W/ LASER LITHOTRIPSY ??? ENDOSCOPY N/A 08/20/2025 Procedure: ESOPHAGOGASTRODUODENOSCOPY; Surgeon: Yair Wagner MD; Location: [facility]; Service: Gastroenterology; Laterality: N/A; APC to stomach - effect 2, max knapp 30. APC to small bowel - effect 2, max knapp 20. ??? HERNIA REPAIR Family History Problem Relation Name Age of Onset ??? Alzheimer's disease Mother Social History Socioeconomic History ??? Marital status: Tobacco Use ??? Smoking status: Former Current packs/day: 1.00 Average packs/day: 1 pack/day for 20.0 years (20.0 ttl pk-yrs) Types: Cigarettes Passive exposure: Past ??? Smokeless tobacco: Never Vaping Use ??? Vaping status: Never Used Substance and Sexual Activity ??? Alcohol use: Never ??? Drug use: Never ??? Sexual activity: Defer Objective Vital Signs: BP 118/64 (BP Location: Right arm, Patient Position: Sitting, Cuff Size: Adult) Pulse 76 Ht 167.6 cm (66 ) Wt 64.9 kg (143 lb) SpO2 98% BMI 23.08 kg/m?? Estimated body mass index is 23.08 kg/m?? as calculated from the following: Height as of this encounter: 167.6 cm (66 ). Weight as of this encounter: 64.9 kg (143 lb). Physical Exam Constitutional: Appearance: Normal appearance. He is well-developed. HENT: Head: Normocephalic and atraumatic. Eyes: General: No scleral icterus. Pupils: Pupils are equal, round, and reactive to light. Cardiovascular: Rate and Rhythm: Normal rate and regular rhythm. Heart sounds: Normal heart sounds. No murmur [...] and Memory: Memory normal. Assessment and Plan Diagnoses and all orders for this visit: 1. Persistent atrial fibrillation (Primary) 2. 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 Pacemaker [Z95.0] 4. Hypertension, essential 5. Gastrointestinal hemorrhage, unspecified gastrointestinal hemorrhage type - CBC & Differential; Future - Iron; Future - Ferritin; Future - ferrous sulfate 325 (65 FE) MG tablet; Take 1 tablet by mouth Daily With Breakfast. Dispense: 30 tablet; Refill: 11 6. Chronic hypernatremia - Comprehensive Metabolic Panel; Future 7. Pulmonary nodule 1 cm or greater in diameter - Ambulatory Referral to Hematology / Oncology 8. Iron deficiency anemia due to chronic blood loss - Ambulatory Referral to Hematology / Oncology PLAN: -BP well controlled. CAD stable. On medical therapy. -stop repatha as he is forgetting this and LDL /12 was great, 66 -a fib has been persistent since hospitalization per PM. Would like to keep eliquis on if at all able. -pacemaker has good battery life and lead function -will recheck hgb this week as he is still having black stools and is back on eliquis after bleeding. -will start iron tablets, may need IV infusions, will refer to heme -also new pulmonary nodules noted and not seen a month prior in [facility], will refer to oncology for further work up. History of enlarge prostate, and prostate was enlarged on CT scan as well. Has folllowed PSA with Dr. Gamez before. Follow Up Return in about 4 weeks (around 10/04/2025) for Next scheduled follow up, PM/ICD check. Anita Alvarenga MD 09/06/2025 Please note that this explicitly excludes time spent on other separate billable services such as performing procedures or test interpretation, when applicable. This note was created using dictation software which occasionally transcribes nonsensical phrases. Please contact the provider if any clarification is needed. documented in this encounter Plan of Treatment Upcoming Encounters Date Type Department Care Team (Late st Contact Info) Description 09/20/2025 1:15 PM EST Office Visit [facility] [address] [place] [address] [place] [phone] Huang Valdez MD [address] [place] [address] [place] [address] 09/29/2025 2:45 PM EST Office Visit [facility] CARDIOLOG[facility] [address] [place] [address] [place] [phone] Willow Rodgers APRN [address] [place] [address] [place] [address] 09/29/2025 2:45 PM EST Clinical Support No Requirements [facility] [address] [place] [address] [place] [phone] Scheduled Orders Name Type Priority Associated Diagnoses Orde r Schedule CBC & Differential Lab Panel Routine Gastrointestinal hemorrhage, unspecified gastrointestinal hemorrhage type Expected: 09/20/2025 (Approximate), Expires: 09/06/2026 Iron Lab Routine Gastrointestinal hemorrhage, unspecified gastrointestinal hemorrhage type Expected: 09/20/2025 (Approximate), Expires: 09/06/2026 Ferritin Lab Routine Gastrointestinal hemorrhage, unspecified gastrointestinal hemorrhage type Expected: 09/20/2025 (Approximate), Expires: 09/06/2026 Comprehensive Metabolic Panel Lab Routine Chronic hypernatremia Expected: 09/20/2025 (Approximate), Expires: 09/06/2026 documented as of this encounter Visit Diagnoses Diagnosis Persistent atrial fibrillation- Primary Atrial fibrillation 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, unspecified vessel or lesion type Pacemaker [Z95.0] Cardiac pacemaker in situ Hypertension, essential Unspecified essential hypertension Gastrointestinal hemorrhage, unspecified gastrointestinal hemorrhage type Chronic hypernatremia Hyperosmolality and/or hypernatremia Pulmonary nodule 1 cm or greater in diameter Iron deficiency anemia due to chronic blood loss Iron deficiency anemia secondary to blood loss (chronic) documented in this encounter Care Teams Head Screen Worker Relationship Specialty Start Date End Date Danisha Nguyen APRN [address] [place] [address] PCP - General Family Medicine 02/05/24 documented as of this encounter
[2025-09-11] VITALS (26 sets, daily range): BP systolic 123–153; BP diastolic 58–100; PULSE 73–104; RESP 9–23; TEMP 36.4–36.8; O2SAT 94–100; BMI 25.7; BMI 22.8
--- NOTE | 2025-09-11 09:39 | HMH.EDGENADL ---
Discharge Plan Disposition Patient Disposition: Admitted Condition: Fair Prescriptions Prescriptions: No Action Repatha SureClick 140 mg/mL pen injector SQ carvedilol 25 mg tablet 25 mg PO BID aspirin 81 mg tablet,delayed release (DR/EC) 81 mg PO DAILY tamsulosin 0.4 mg capsule PO donepezil 5 mg tablet 5 mg PO DAILY Qty: 90 3RF thiamine HCl (vitamin B1) 250 mg tablet 250 mg PO DAILY Qty: 90 11RF Referrals Follow up/Referrals: Danisha Nguyen APRN [Primary Care Provider, Medical] - See instructions Clinical Impressions Clinical Impression: Anemia, GI (gastrointestinal bleed) Instructions Patient Instructions: DI for Gastrointestinal Bleeding Print Language Print Language: Trinidadian Discharge ED Provider: Gustavo Pfeiffer JR General Adult HPI General Chief complaint: GI Bleed Stated complaint: abnormal lab, weakness, poss GI bleed Time Seen by Provider: 09/11/25 10:00 Mode of Arrival: EMS History of Present Illness HPI narrative: 89-year-old male with history of CABG, cardiac pacemaker, hypertension, on aspirin presents Emergency Department with EMS from home. Patient reportedly presents for abnormal lab. Unknown what the abnormal lab is currently. Had labs drawn recently. Patient endorses generalized weakness and dark tarry stool over the last several days. He is alert and oriented to person and place only. He does not know the year. Does have underlying dementia. Vital signs stable upon arrival. No further complaints at this time. No history of liver disease. Further history limited by patient's underlying dementia. Related Data Home Medications ?Medication ?Instructions ?Recorded ?Confirmed carvedilol 25 mg tablet 25 mg PO BID 06/25/22 01/25/25 evolocumab 140 mg/mL subcutaneous mg SQ 06/25/22 01/25/25 pen injector (Repatha SureClick) aspirin 81 mg tablet,delayed 81 mg PO DAILY 10/15/22 01/25/25 release tamsulosin 0.4 mg capsule mg PO 09/06/23 01/25/25 Previous Rx's ?Medication ?Instructions ?Recorded donepezil 5 mg tablet 5 mg PO DAILY Memory loss #90 tabs 01/26/25 thiamine HCl (vitamin B1) 250 mg 250 mg PO DAILY #90 tabs 01/26/25 tablet Allergies Allergy/AdvReac Type Severity Reaction Status Date / Time diclofenac Allergy Palpitation Verified 01/25/25 10:46 s Penicillins Allergy Verified 01/25/25 10:46 [id number] Reductase AdvReac Verified 01/25/25 10:46 Inhibitor PFSH PFS Disclaimer: The information contained in this section may have been updated after the patient was seen, as this information can be updated by other users. Medical History (Updated 09/11/25 @ 11:14 by Gustavo Pfeiffer JR, DO) History of arthritis History of hyperlipidemia History of cardiac pacemaker History of memory loss History of back pain CAD (coronary artery disease) Hypertension Surgical History History of hernia surgery H/O heart bypass surgery H/O heart artery stent Family History Mother Hypertension Coronary artery disease Father Hypertension Coronary artery disease Other Alzheimer's dementia Arthritis Kidney disease Social History Smoking Status: Former smoker tobacco type: cigarettes packs per day: 1 pack-years: 27 smoking status stop date: 16+ years ago second hand exposure: No alcohol intake: never substance use type: denies use current occupational status: other details: [employer] Travel in the last 8 weeks?: None housing: house marital status: Have you lived/traveled outside US in past 30 days?: No Contact w/someone who lives/traveled outside US past 30 days?: No Exposure to someone with infectious disease in past 14 days?: No Do you have a fever (greater than 100.4 F or 38 C)?: No Have you tested positive for COVID-19?: No Exposed to someone with COVID-19 in past 14 days?: No Do you have a sore throat?: No Do you have a cough?: No Do you have any weakness?: No Do you have any diarrhea?: No Are you experiencing any unusual bleeding?: No Do you have any muscle aches/pain?: No Do you have any abdominal pain?: No Are you experiencing loss of taste or smell?: No Other Medical History Have you received the Pneumonia Vaccine: No ROS Obtained: Yes All systems reviewed & no additional complaints except as documented and Yes Systems reviewed as appropriate & no additional complaints except as documented Constitutional Constitutional: Reports system reviewed and no additional complaints, except as documented, Reports as per HPI and Reports weakness Eyes Eyes: Reports system reviewed and no additional complaints, except as documented and Reports as per HPI ENT Ears, Nose, Mouth, and Throat: Reports system reviewed and no additional complaints, except as documented and Reports as per HPI Cardiovascular Cardiovascular: Reports system reviewed and no additional complaints, except as documented, Reports as per HPI and Denies chest pain Respiratory Respiratory: Reports system reviewed and no additional complaints, except as documented, Reports as per HPI and Denies shortness of breath Gastrointestinal Gastrointestingal: Reports system reviewed and no additional complaints, except as documented, as per HPI and melena; Denies abdominal pain Genitourinary Male Genitourinary: Reports system reviewed and no additional complaints, except as documented and Reports as per HPI Musculoskeletal Musculoskeletal: Reports system reviewed and no additional complaints, except as documented and Reports as per HPI Neurologic Neurologic: Reports system reviewed and no additional complaints, except as documented, Reports as per HPI and Reports weakness Physical Exam General General appearance: alert and in no apparent distress Head Head exam: atraumatic and normocephalic Eye Eye exam: Present normal appearance, PERRL and EOMI; Absent scleral icterus Neck Neck exam: Present normal inspection Chest Chest inspection: Present normal inspection and symmetric chest wall rise Respiratory Respiratory exam: Present normal lung sounds bilaterally; Absent respiratory distress, wheezes, stridor, accessory muscle use or prolonged expiratory phase Cardiovascular Cardiovascular exam: Present regular rate and normal rhythm Abdominal Exam Abdominal exam: Present soft; Absent tenderness, guarding, rebound or rigidity exam: Present other (Positive fecal occult blood) Back Exam Back exam: Present normal inspection and full ROM Neurological Exam Neurological exam: Present alert and other (Oriented to person and place only, at baseline) Medical Decision Making Medical Records Screening: Per USPSTF and CDC recommendations, given the prevalence of disease in our region, it is our hospital?s policy to screen for HIV and viral Hepatitis for all patients aged 18 and over and those with ongoing risk factors. Cam Inquiry Pt receiving controlled substance: No Vital Signs: 09/11/25 09:47 09/11/25 09:55 09/11/25 09:55 Temperature 97.8 F 97.8 F Temperature Source Oral Oral Pulse Rate 82 89 Pulse Rate [Right] 89 Respiratory Rate 16 16 Blood Pressure 127/76 127/76 Blood Pressure [Right Arm] 127/76 Blood Pressure Mean Blood Pressure Mean [Right Arm] 93 Blood Pressure Source Automatic Cuff Blood Pressure Source [Right Arm] Automatic Cuff Blood Pressure Position Supine Blood Pressure Position [Right Arm] Supine 02 Sat by Pulse Oximetry 99 98 98 Oxygen Delivery Method Room Air Room Air 09/11/25 10:12 09/11/25 10:20 09/11/25 10:30 Temperature Temperature Source Pulse Rate 73 Pulse Rate [Right] Respiratory Rate 14 19 Blood Pressure 153/80 H 132/76 Blood Pressure [Right Arm] Blood Pressure Mean 104 Blood Pressure Mean [Right Arm] Blood Pressure Source Blood Pressure Source [Right Arm] Blood Pressure Position Blood Pressure Position [Right Arm] 02 Sat by Pulse Oximetry 98 99 Oxygen Delivery Method Room Air 09/11/25 11:00 Temperature Temperature Source Pulse Rate 83 Pulse Rate [Right] Respiratory Rate 13 Blood Pressure 134/71 Blood Pressure [Right Arm] Blood Pressure Mean 92 Blood Pressure Mean [Right Arm] Blood Pressure Source Blood Pressure Source [Right Arm] Blood Pressure Position Blood Pressure Position [Right Arm] 02 Sat by Pulse Oximetry 99 Oxygen Delivery Method Lab Data Lab Results 09/11/25 09:58: Stool Occult Blood Positive A 09/11/25 10:30: WBC 4.4 L, RBC 2.67 L, Hgb 6.7 L*, Hct 23.4 L, MCV 87.6, MCH 25.1 L, MCHC 28.6 L, RDW 15.8, Plt Count 155, MPV 12.6 H, Neut % (Auto) 71.0, Lymph % (Auto) 14.9, [place] % (Auto) 12.0 H, Eos % (Auto) 1.4, Baso % (Auto) 0.2, Neut # (Auto) 3.2, Lymph # (Auto) 0.7, [place] # (Auto) 0.5, Eos # (Auto) 0.1, Baso # (Auto) 0.0, PT 13.2 H, INR 1.21 H, Sodium 140, Potassium 4.2, Chloride 112 H, Carbon Dioxide 21 L, Anion Gap 11.2, BUN 19, Creatinine 1.00, Estimated Creat Clear 53, Estimated GFR 71, Est GFR ( Amer) 86, Glucose 119 H, Calcium 9.4, Total Bilirubin 0.7, AST 18, ALT 12, Alkaline Phosphatase 86, Total Protein 5.7 L, Albumin 3.8, Globulin 1.9, Albumin/Globulin Ratio 2.0 H 09/11/25 10:30 09/11/25 10:30 Orders (Tests/Meds): ED MEDICATIONS Generic Name Dose Route Start Last Admin Trade Name Soraya PRN Reason Stop Dose Admin Sodium Chloride 10 ml 09/11/25 09:59 09/11/25 10:32 Sodium Chloride 0.9% 10ml Vial IV 10/11/25 09:58 10 ml NEEDED PRN Administration dilute protonix Discontinued Medications Generic Name Dose Route Start Last Admin Trade Name Soraya PRN Reason Stop Dose Admin Lactated Ringer's 1,000 mls @ 999 mls/hr 09/11/25 09:52 09/11/25 10:30 Lactated Ringer's 1000 Ml Bag IV 09/11/25 10:52 999 mls/hr .Q1H1M ONE Administration Pantoprazole Sodium 40 mg 09/11/25 09:59 09/11/25 10:32 Pantoprazole 40mg Vial IV 09/11/25 10:00 40 mg ONCE ONE Administration ORDERS Category Date Time Status Type and Screen Stat BBK 09/11/25 10:30 Received Complete Blood Count Auto Diff Stat Lab 09/11/25 10:30 Completed Comprehensive Metabolic Panel Stat Lab 09/11/25 10:30 Completed HIV Combo Stat Lab 09/11/25 10:30 Received Hepatitis C Ab Qual. W/ RFX Stat Lab 09/11/25 10:30 Received Occult Blood,Stool Stat Lab 09/11/25 09:58 Completed Prothrombin Time INR Stat Lab 09/11/25 10:30 Completed Medical Decision Narrative: 89-year-old male presents to the emergency department for evaluation of abnormal lab, black tarry stool. We will send fecal occult testing. Fecal occult positive. Will give fluids and PPI. No liver disease. No need for Rocephin or octreotide. Low concern for variceal bleeding. EKG reviewed and interpreted, significant for atrial fibrillation. No ST elevation. No STEMI. Patient does have history of atrial fibrillation. Occult blood positive. Hemoglobin 6.7. We will transfuse with blood. [place] score of 32 [place] score 0-1?% Probability of safe discharge (absence of rebleeding, blood transfusion, therapeutic intervention, 28 day readmission, or ). Discharge NOT recommended. Consider admission with further workup and resuscitation as necessary. Discussing case with gastroenterology and surgery. Discussed patient case with hospital medicine. To be admitted for blood transfusion, hemoglobin recheck, and potentially scope for upper GI bleed given black tarry stool and anemia requiring transfusion. Patient remains hemodynamically stable and overall well-appearing in no acute distress. Critical Care Critical Care Time Critical Care Time: No
--- NOTE | 2025-09-11 10:03 | ECG_ITS ---
APPROVED REPORT Exam: Resting ECG HR:101 bpm ECG Measurements Heart Rate 101 AXES QRSd 82 QRS 64 QT 347 T -47 QTc 405 Conclusion ATRIAL FIBRILLATION WITH RAPID VENTRICULAR RESPONSE ST DEVIATION AND MODERATE T-WAVE ABNORMALITY, CONSIDER ANTEROLATERAL ISCHEMIA [-0.1+ mV T-WAVE IN V3-V6] ABNORMAL ECG UNCONFIRMED REPORT Electronically signed by : JOSSELYN BARBOUR, 09/12/2025 05:41:21
[2025-09-11 10:08] LABS: Occult Blood,Stool Positive (Negative)
--- NOTE | 2025-09-11 10:09 | PC.NURSE ---
lab called for type and screen
[2025-09-11] MEDS: LACTATED RINGERS 1000ML 1,000 ML 999 ML IV (10:30)
[2025-09-11] MEDS: SODIUM CHLORIDE 0.9% 10ML VIAL 10 ML IV ×2 (10:32→20:14)
[2025-09-11] MEDS: PANTOPRAZOLE 40MG VIAL 40 MG IV ×2 (10:32→20:14)
[2025-09-11 10:52] LABS: Hematocrit 23.4 % (42.0-52.0); Immature Granulocytes % 0.5 %; Mean Corpuscular HGB Conc 28.6 g/dL (31.8-35.4); Mean Corpuscular Hemoglobin 25.1 pg (27.0-31.2); Mean Corpuscular Volume 87.6 fl (80-94); Nucleated Red Blood Cells % 0 %; Platelet Count 155 K/mm3 (142-424); Red Blood Count 2.67 M/mm3 (4.60-6.20); Red Cell Distribution Width-SD 50.4 fL; White Blood Count 4.4 K/mm3 (4.8-10.8)
[2025-09-11 10:54] LABS: Albumin Level 3.8 g/dl (3.5-5.0); Chloride 112 mmol/L (98-107); Potassium 4.2 mmoL/L (3.5-5.1); Sodium 140 mmol/L (136-145)
[2025-09-11 10:55] LABS: Hemoglobin 6.7 g/dL (14.1-18.0)
--- NOTE | 2025-09-11 10:56 | PC.NURSE ---
QUINN was paged for Dr. Pfeiffer.
[2025-09-11 10:57] LABS: Alanine Aminotransferase 12 U/L (12-78); Albumin/Globulin Ratio 2.0 (1.1-1.8); Alkaline Phosphatase 86 U/L (38-126); Anion Gap 11.2 mEq/L (5-15); Aspartate Amino Transferase 18 U/L (17-59); Bilirubin,Total 0.7 mg/dl (0.2-1.3); Blood Urea Nitrogen 19 mg/dl (9-20); Calcium 9.4 mg/dl (8.4-10.2); Carbon Dioxide 21 mmol/L (22.0-30.0); Creatinine Clearance Estimated 53 mL/min (50-200); Creatinine,Serum 1.00 mg/dl (0.66-1.25); Estimated Glomerular Filt Rate 71 ml/min (>60); GFR (African American) 86 ML/MIN (>60); Globulin 1.9 g/dL (1.3-3.2); Glucose 119 mg/dl (74-100); Total Protein,Serum 5.7 g/dl (6.3-8.2)
[2025-09-11 10:58] LABS: INR 1.21 (0.9-1.1); Prothrombin Time 13.2 seconds (10.1-12.5)
--- NOTE | 2025-09-11 11:00 | PC.NURSE ---
on phone with QUINN
--- NOTE | 2025-09-11 11:00 | PC.NURSE ---
instructional coordinator surgeon paged for provider
--- NOTE | 2025-09-11 11:02 | PC.NURSE ---
md on phone with surgeon
--- NOTE | 2025-09-11 11:07 | PC.NURSE ---
on phone with hospitalist
--- NOTE | 2025-09-11 11:10 | PC.NURSE ---
call made to apartment house manager for bed assignment
--- NOTE | 2025-09-11 11:14 | EXP.HP ---
History of Present Illness *Admission Date: 09/11/25 *Reason for visit:: black stools, weak *History of present illness: Mr. Grier is a pleasant 89-year-old male with history of dementia who presented to the ER with concern for black stools and weakness. Initial workup showed concern for anemia with hemoglobin of 6.7. Of note he had labs obtained by his PCP in the past 2 days and they came back abnormal. Patient was informed to come to the ER for evaluation for his recurrent anemia. Given his anemia, ER consulted medicine for admission and further management of possible GI bleed. After arriving to the unit, patient significant other is available to provide additional history as patient is a very poor historian. She states he was actually admitted to [facility] on 1128 after arriving to the ER due to concern for black stools. He was there for approximately a week. EGD was performed that found duodenal erosions with no active bleeding. Had ectasia in the duodenum and stomach. 3 areas were cauterized with argon laser and 2 clips were placed. Received blood transfusion during that admission and was discharged with a hemoglobin of 8.7. His Eliquis had been resumed on 08/24 at 5 mg twice daily. His last dose was yesterday morning. He is not currently on iron supplementation as an outpatient. She has had previous discussions with his network security analyst about risk of bleeding versus risk of stroke and need for anticoagulation. Discussed decreasing dosage and holding dosage as options. She denies that he has had any fever, vomiting, bright red blood per rectum. [facility] Disclaimer: The information contained in this section may have been updated after the patient was seen, as this information can be updated by other users. Medical History History of arthritis History of hyperlipidemia History of cardiac pacemaker History of memory loss History of back pain CAD (coronary artery disease) Hypertension Surgical History History of hernia surgery H/O heart bypass surgery H/O heart artery stent Family History Mother Hypertension Coronary artery disease Father Hypertension Coronary artery disease Other Alzheimer's dementia Arthritis Kidney disease Social History Smoking Status: Former smoker tobacco type: cigarettes packs per day: 1 pack-years: 27 smoking status stop date: 16+ years ago second hand exposure: No alcohol intake: never substance use type: denies use current occupational status: other details: [employer] Travel in the last 8 weeks?: None housing: house marital status: Have you lived/traveled outside US in past 30 days?: No Contact w/someone who lives/traveled outside US past 30 days?: No Exposure to someone with infectious disease in past 14 days?: No Do you have a fever (greater than 100.4 F or 38 C)?: No Have you tested positive for COVID-19?: No Exposed to someone with COVID-19 in past 14 days?: No Do you have a sore throat?: No Do you have a cough?: No Do you have any weakness?: No Do you have any diarrhea?: No Are you experiencing any unusual bleeding?: No Do you have any muscle aches/pain?: No Do you have any abdominal pain?: No Are you experiencing loss of taste or smell?: No Other Medical History Have you received the Pneumonia Vaccine: No Review of Systems Review of Systems Review of systems (narrative): 14 point review of systems performed, pertinent positives and negatives as per HPI Constitutional Constitutional: Reports weakness *Neurologic Neurologic: Reports system reviewed and no additional complaints, except as documented, Reports as per HPI and Reports weakness Meds Home Medications and Allergies Home Medications ?Medication ?Instructions ?Recorded ?Confirmed ?Type carvedilol 25 mg tablet 25 mg PO BID 06/25/22 01/25/25 History evolocumab 140 mg/mL subcutaneous mg SQ 06/25/22 01/25/25 History pen injector (Mehul Yu) aspirin 81 mg tablet,delayed 81 mg PO DAILY 10/15/22 01/25/25 History release tamsulosin 0.4 mg capsule mg PO 09/06/23 01/25/25 History donepezil 5 mg tablet 5 mg PO DAILY Memory loss #90 tabs 01/26/25 Rx thiamine HCl (vitamin B1) 250 mg 250 mg PO DAILY #90 tabs 01/26/25 Rx tablet New Prescriptions to Start Prescriptions: Allergies Allergy/AdvReac Type Severity Reaction Status Date / Time diclofenac Allergy Palpitation Verified 01/25/25 10:46 s Penicillins Allergy Verified 01/25/25 10:46 [id number] Reductase AdvReac Verified 01/25/25 10:46 Inhibitor Exam Data for Last 24 hours Vital signs and Labs for Last 24 Hours: Temp Pulse Resp BP Pulse Ox O2 Del Method 97.8 F 83 13 134/71 99 Room Air 09/11/25 09:55 09/11/25 11:00 09/11/25 11:00 09/11/25 11:00 09/11/25 11:00 09/11/25 10:12 Laboratory Results - last 24 hr 09/11/25 09:58: Stool Occult Blood Positive A 09/11/25 10:30: WBC 4.4 L, RBC 2.67 L, Hgb 6.7 L*, Hct 23.4 L, MCV 87.6, MCH 25.1 L, MCHC 28.6 L, RDW 15.8, Plt Count 155, MPV 12.6 H, Neut % (Auto) 71.0, Lymph % (Auto) 14.9, [place] % (Auto) 12.0 H, Eos % (Auto) 1.4, Baso % (Auto) 0.2, Neut # (Auto) 3.2, Lymph # (Auto) 0.7, [place] # (Auto) 0.5, Eos # (Auto) 0.1, Baso # (Auto) 0.0, PT 13.2 H, INR 1.21 H, Sodium 140, Potassium 4.2, Chloride 112 H, Carbon Dioxide 21 L, Anion Gap 11.2, BUN 19, Creatinine 1.00, Estimated Creat Clear 53, Estimated GFR 71, Est GFR ( Amer) 86, Glucose 119 H, Calcium 9.4, Total Bilirubin 0.7, AST 18, ALT 12, Alkaline Phosphatase 86, Total Protein 5.7 L, Albumin 3.8, Globulin 1.9, Albumin/Globulin Ratio 2.0 H I & O for Last 24 hours: Intake & Output 09/08/25 09/09/25 09/10/25 09/11/25 23:59 23:59 23:59 23:59 Weight 72.575 kg Constitutional Constitutional: no acute distress, average body habitus, chronically ill appearing and cooperative *Routine HEENT Exam Head: Present normocephalic Eye: Present EOMI and PERRL ENT: Present mucous membranes moist *Routine Neck Exam Neck: Present supple; Absent lymphadenopathy *Routine Respiratory Exam Respiratory: Present CTA bilaterally; Absent rhonchi or wheezes *Routine Cardiovascular Exam Cardiovascular: Present RRR *Routine Abdominal Exam Abdominal: Present soft and normoactive bowel sounds; Absent tenderness *Routine Rectal Exam Rectal:: deferred *Routine Genitalia Exam Genitalia:: deferred *Routine Extremities Exam Extremities: Absent cyanosis, clubbing or edema *Routine Skin Exam Skin: Present warm; Absent rash *Routine Neurological Exam Neurological: Present alert and moving all extremities; Absent altered mental status Comments: Oriented to self, this is baseline per family at bedside. Answers questions appropriately. Poor historian Assessment and Plan *Assessment and plan (1) GI (gastrointestinal bleed): Status: Acute Qualifiers: GI bleed type/associated pathology: unspecified gastrointestinal hemorrhage type Qualified Code(s): K92.2 - Gastrointestinal hemorrhage, unspecified Category: Medical Code(s): K92.2 - Gastrointestinal hemorrhage, unspecified (2) Anemia: Status: Acute Qualifiers: Anemia type: unspecified type Qualified Code(s): D64.9 - Anemia, unspecified Category: Medical Code(s): D64.9 - Anemia, unspecified (3) CABG (coronary artery bypass graft) planned: Status: Chronic Category: Medical Code(s): Z78.9 - Other specified health status (4) Hypertension: Status: Chronic Qualifiers: Hypertension type: primary hypertension Qualified Code(s): I10 - Essential (primary) hypertension Category: Medical Code(s): I10 - Essential (primary) hypertension (5) Atrial fibrillation: Status: Chronic Category: Medical Code(s): I48.91 - Unspecified atrial fibrillation (6) Chronic anticoagulation: Status: Chronic Category: Medical Code(s): Z79.01 - retirement (current) use of anticoagulants (7) Dementia: Status: Chronic Category: Medical Code(s): F03.90 - Unspecified dementia, unspecified severity, without behavioral disturbance, psychotic disturbance, mood disturbance, and anxiety Plan 89-year-old male with worsening anemia in the setting of GI bleed. Recently worked up for similar presentation within the past month. Discussed case with ER physician, request admission for transfusion and further evaluation by surgery or GI if patient's condition worsens. I decided to admit for further care. 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 - Hemoglobin 6.7 on admission. Goal hemoglobin greater than 7. Will transfuse 1 unit. Repeat H&H 2 hours later - Given significant blood loss over the past few months per chart review, will administer 1 dose of Venofer 200 mg IV in the morning - Reviewed records from patient's visit to [facility] the end of July that showed EGD with duodenal erosions, angioectasia, and argon laser cauterization along with placement of 2 clips on large stomach angiectasia that bled with manipulation. - Holding on further EGD at this time after discussion with family due to concern for effect of anesthesia on patient's mentation. - Discussed case with on-call surgeon, recommends conservative management at this time. Will hold on any scope given recent findings and known presence of angioectasia. Medically manage and transfuse. Further consideration of intervention in the next day or 2 A-fib HTN - Holding anticoagulation due to GI bleed - Appears rate controlled at this time with heart rate in the 80s. Continue carvedilol 25 mg twice daily - Will have further discussions about risks and benefits of anticoagulation prior to discharge Dementia: Resume donepezil 5 mg nightly BPH: Continue tamsulosin 0.4 mg nightly Full code SCDs Clear liquid diet
--- NOTE | 2025-09-11 11:19 | PC.NURSE ---
Pt admitted to room 264 for upper GI bleed
--- NOTE | 2025-09-11 11:19 | PC.NURSE ---
preparation department supervisor just called with the bed assignment. 264 ICU, this was relayed to Charge Nurse Sarah.
--- NOTE | 2025-09-11 11:19 | PC.NURSE ---
Attempted to call report. Nurse will call back.
--- NOTE | 2025-09-11 11:38 | PC.NURSE ---
report called to BRITTANY Parada in the ICU.
--- NOTE | 2025-09-11 12:06 | PC.NURSE ---
Patient arrived to the ICU with [employer]
--- NOTE | 2025-09-11 12:17 | EXP.SURG.CON ---
History of Present Illness *Admission Date: 09/11/25 *Reason for visit:: Upper GI bleed . *History of present illness: Patient is an 89-year-old male from [facility] with history of coronary artery disease with previous coronary artery bypass graft, hypertension, cardiac pacemaker, some dementia reportedly. He presented to the emergency department today via EMS due to abnormal laboratory evaluation. He apparently had recent routine laboratory studies. Evaluation in the emergency department revealed a hemoglobin of 6.7. Recent baseline hemoglobin 13.6 in January. BUN and creatinine are normal. He was admitted for inpatient management for transfusion and surgical consultation for upper endoscopy. Of note, patient recently was admitted to [facility] with symptomatic anemia and melena. He underwent upper endoscopy on 08/20/2025 which revealed small hiatal hernia, gastric and duodenal AVMs which underwent argon beam coagulation and clipping of the gastric AVM. He was just discharged from [facility] on 09/02/2025 with a hemoglobin of 8.6. Patient resumed Eliquis at a dose of 5 mg twice daily subsequently. [facility] Disclaimer: The information contained in this section may have been updated after the patient was seen, as this information can be updated by other users. Medical History (Updated 09/11/25 @ 12:58 by Austin Arauz MD) History of arthritis History of hyperlipidemia History of cardiac pacemaker History of memory loss History of back pain CAD (coronary artery disease) Hypertension Surgical History History of hernia surgery H/O heart bypass surgery H/O heart artery stent Family History Mother Hypertension Coronary artery disease Father Hypertension Coronary artery disease Other Alzheimer's dementia Arthritis Kidney disease Social History Smoking Status: Former smoker tobacco type: cigarettes packs per day: 1 pack-years: 27 smoking status stop date: 16+ years ago second hand exposure: No alcohol intake: never substance use type: denies use current occupational status: other details: [employer] Travel in the last 8 weeks?: None housing: house marital status: Have you lived/traveled outside [place] in past 30 days?: No Contact w/someone who lives/traveled outside US past 30 days?: No Exposure to someone with infectious disease in past 14 days?: No Do you have a fever (greater than 100.4 F or 38 C)?: No Have you tested positive for COVID-19?: No Exposed to someone with COVID-19 in past 14 days?: No Do you have a sore throat?: No Do you have a cough?: No Do you have any weakness?: No Do you have any diarrhea?: No Are you experiencing any unusual bleeding?: No Do you have any muscle aches/pain?: No Do you have any abdominal pain?: No Are you experiencing loss of taste or smell?: No Review of Systems Constitutional Constitutional: Reports weakness *Neurologic Neurologic: Reports system reviewed and no additional complaints, except as documented, Reports as per HPI and Reports weakness Meds Home Medications and Allergies Home Medications ?Medication ?Instructions ?Recorded ?Confirmed ?Type carvedilol 25 mg tablet 25 mg PO BID 06/25/22 01/25/25 History evolocumab 140 mg/mL subcutaneous mg SQ 06/25/22 01/25/25 History pen injector (Mehul Yu) aspirin 81 mg tablet,delayed 81 mg PO DAILY 10/15/22 01/25/25 History release tamsulosin 0.4 mg capsule mg PO 09/06/23 01/25/25 History donepezil 5 mg tablet 5 mg PO DAILY Memory loss #90 tabs 01/26/25 Rx thiamine HCl (vitamin B1) 250 mg 250 mg PO DAILY #90 tabs 01/26/25 Rx tablet New Prescriptions to Start Prescriptions: Allergies Allergy/AdvReac Type Severity Reaction Status Date / Time diclofenac Allergy Palpitation Verified 01/25/25 10:46 s Penicillins Allergy Verified 01/25/25 10:46 [id number] Reductase AdvReac Verified 01/25/25 10:46 Inhibitor Exam (Inpt) Vital signs and Labs for Last 24 Hours: Temp Pulse Resp BP Pulse Ox O2 Del Method 97.8 F 98 H 12 144/77 H 99 Room Air 09/11/25 12:02 09/11/25 12:02 09/11/25 12:02 09/11/25 12:02 09/11/25 11:00 09/11/25 12:02 Laboratory Results - last 24 hr 09/11/25 09:58: Stool Occult Blood Positive A 09/11/25 10:30: WBC 4.4 L, RBC 2.67 L, Hgb 6.7 L*, Hct 23.4 L, MCV 87.6, MCH 25.1 L, MCHC 28.6 L, RDW 15.8, Plt Count 155, MPV 12.6 H, Neut % (Auto) 71.0, Lymph % (Auto) 14.9, [place] % (Auto) 12.0 H, Eos % (Auto) 1.4, Baso % (Auto) 0.2, Neut # (Auto) 3.2, Lymph # (Auto) 0.7, [place] # (Auto) 0.5, Eos # (Auto) 0.1, Baso # (Auto) 0.0, PT 13.2 H, INR 1.21 H, Sodium 140, Potassium 4.2, Chloride 112 H, Carbon Dioxide 21 L, Anion Gap 11.2, BUN 19, Creatinine 1.00, Estimated Creat Clear 53, Estimated GFR 71, Est GFR ( Amer) 86, Glucose 119 H, Calcium 9.4, Total Bilirubin 0.7, AST 18, ALT 12, Alkaline Phosphatase 86, Total Protein 5.7 L, Albumin 3.8, Globulin 1.9, Albumin/Globulin Ratio 2.0 H I & O for Labs for Last 24 Hours: Intake & Output 09/09/25 09/10/25 09/11/25 09/12/25 11:59 11:59 11:59 11:59 Intake Total 1000 / 1000 Balance 1000 / 1000 Weight 160 lb Constitutional: no acute distress Results Labs 09/11/25 10:30 09/11/25 10:30 Labs: Laboratory Results - last 24 hr 09/11/25 09:58: Stool Occult Blood Positive A 09/11/25 10:30: WBC 4.4 L, RBC 2.67 L, Hgb 6.7 L*, Hct 23.4 L, MCV 87.6, MCH 25.1 L, MCHC 28.6 L, RDW 15.8, Plt Count 155, MPV 12.6 H, Neut % (Auto) 71.0, Lymph % (Auto) 14.9, [place] % (Auto) 12.0 H, Eos % (Auto) 1.4, Baso % (Auto) 0.2, Neut # (Auto) 3.2, Lymph # (Auto) 0.7, [place] # (Auto) 0.5, Eos # (Auto) 0.1, Baso # (Auto) 0.0, PT 13.2 H, INR 1.21 H, Sodium 140, Potassium 4.2, Chloride 112 H, Carbon Dioxide 21 L, Anion Gap 11.2, BUN 19, Creatinine 1.00, Estimated Creat Clear 53, Estimated GFR 71, Est GFR ( Amer) 86, Glucose 119 H, Calcium 9.4, Total Bilirubin 0.7, AST 18, ALT 12, Alkaline Phosphatase 86, Total Protein 5.7 L, Albumin 3.8, Globulin 1.9, Albumin/Globulin Ratio 2.0 H Assessment and Plan *Assessment and plan (1) Anemia: Status: Acute Qualifiers: Anemia type: unspecified type Qualified Code(s): D64.9 - Anemia, unspecified Category: Medical Code(s): D64.9 - Anemia, unspecified Plan Currently no need for emergent upper endoscopy for therapeutic purposes. Agree with admission, transfusion, treatment with proton pump inhibitors. Withhold anticoagulation. If patient shows poor response to transfusion or hemodynamic instability upper endoscopy may need EGD.
[2025-09-11 12:56] LABS: Hepatitis C Ab Qual. W/ RFX NEGATIVE (Negative)
[2025-09-11] MEDS: 0.9 % SODIUM CHLORIDE 250 ML 25 ML IV (13:00)
[2025-09-11 17:43] LABS: Hematocrit 26.4 % (42.0-52.0)
--- NOTE | 2025-09-11 18:10 | PC.NURSE ---
Urinary retention Patient endorses emptying his bladder prior to arrival to the unit around noon today. Patient denies sensation to void, abdomen is soft, non-tender to palpation, no distension noted to bladder. Patient declining bladder scan at this time. Agreeable to have one completed if he is unable to void in a few more hours. Patient is oriented to name only at this time, baseline. Family at Bedside. Will communicate patient wishes in report.
[2025-09-11 18:42] LABS: Hemoglobin 7.7 g/dL (14.1-18.0)
[2025-09-11] MEDS: SUCRALFATE 1GM/10ML SUSP UDC 1 GM NG-TUBE (20:14)
[2025-09-11] MEDS: CARVEDILOL 25MG TABLET 25 MG PO (20:17)
[2025-09-11] MEDS: TAMSULOSIN 0.4MG CAPSULE 0.4 MG PO (20:34)
[2025-09-12] VITALS (12 sets, daily range): BP systolic 124–132; BP diastolic 64–74; PULSE 78–117; RESP 14–22; TEMP 36.3–36.6; O2SAT 94–100; BMI 22.5
[2025-09-12] MEDS: MELATONIN 5MG TABLET 5 MG PO (00:41)
[2025-09-12 07:20] LABS: Hematocrit 24.8 % (42.0-52.0); Hemoglobin 7.5 g/dL (14.1-18.0); Immature Granulocytes % 0.4 %; Mean Corpuscular HGB Conc 30.2 g/dL (31.8-35.4); Mean Corpuscular Hemoglobin 26.1 pg (27.0-31.2); Mean Corpuscular Volume 86.4 fl (80-94); Nucleated Red Blood Cells % 0 %; Platelet Count 134 K/mm3 (142-424); Red Blood Count 2.87 M/mm3 (4.60-6.20); Red Cell Distribution Width-SD 49.6 fL; White Blood Count 4.8 K/mm3 (4.8-10.8)
--- NOTE | 2025-09-12 07:20 | EXP.ACUTE.PN ---
Subjective *Date: 09/12/25 *Time: 09:11 Interval history: Patient with no melenic stool overnight. Stable on room air. Denies any abdominal pain. Hemoglobin stable this morning. Afebrile overnight. N.p.o. pending surgical eval for possible scope. If no scope, will advance diet Medical Exam Vital signs and Labs for Last 24 Hours: Vital Signs Temp Pulse Pulse Resp BP BP Pulse Ox 09/12/25 06:46 09/12/25 05:00 09/12/25 04:24 97.3 F L 88 14 132/65 98 09/12/25 04:00 110 H 09/12/25 03:00 09/12/25 01:00 09/12/25 00:30 18 09/12/25 00:15 21 09/12/25 00:00 92 H 09/11/25 23:55 98.2 F 97 H 13 134/80 99 09/11/25 23:00 09/11/25 21:00 09/11/25 20:00 79 09/11/25 20:00 09/11/25 20:00 98.3 F 80 14 137/85 100 09/11/25 17:51 09/11/25 17:00 139/71 09/11/25 16:54 100 H 09/11/25 16:52 09/11/25 16:39 98.2 F 88 16 138/78 100 09/11/25 15:59 98.2 F 87 16 135/93 H 100 09/11/25 15:59 98.2 F 94 H 16 135/93 H 100 09/11/25 15:37 98.2 F 92 H 16 146/78 H 100 09/11/25 15:00 09/11/25 15:00 98.2 F 93 H 16 149/75 H 100 09/11/25 14:00 98.0 F 101 H 19 136/69 100 09/11/25 14:00 98.0 F 101 H 19 137/82 100 09/11/25 13:45 98.0 F 101 H 18 136/69 100 09/11/25 13:30 98.0 F 89 19 147/71 H 100 09/11/25 13:15 98.0 F 91 H 23 133/79 100 09/11/25 13:10 98.0 F 79 20 133/96 H 100 09/11/25 13:05 98.0 F 96 H 18 123/58 L 100 09/11/25 13:00 09/11/25 13:00 98.3 F 85 16 135/72 100 09/11/25 12:59 98.3 F 89 19 125/100 H 100 09/11/25 12:19 97.5 F L 104 H 13 123/83 94 L 09/11/25 12:02 97.8 F 98 H 12 144/77 H 09/11/25 11:30 9 L 139/66 09/11/25 11:21 98 09/11/25 11:00 83 13 134/71 99 09/11/25 10:30 19 132/76 09/11/25 10:20 73 14 153/80 H 99 09/11/25 10:12 98 09/11/25 09:55 97.8 F 89 16 127/76 98 09/11/25 09:55 97.8 F 89 16 127/76 98 09/11/25 09:47 82 127/76 99 O2 Del Method 09/12/25 06:46 Room Air 09/12/25 05:00 Room Air 09/12/25 04:24 Room Air 09/12/25 04:00 09/12/25 03:00 Room Air 09/12/25 01:00 Room Air 09/12/25 00:30 09/12/25 00:15 09/12/25 00:00 09/11/25 23:55 Room Air 09/11/25 23:00 Room Air 09/11/25 21:00 Room Air 09/11/25 20:00 09/11/25 20:00 Room Air 09/11/25 20:00 Room Air 09/11/25 17:51 Room Air 09/11/25 17:00 09/11/25 16:54 09/11/25 16:52 Room Air 09/11/25 16:39 09/11/25 15:59 Room Air 09/11/25 15:59 Room Air 09/11/25 15:37 09/11/25 15:00 Room Air 09/11/25 15:00 09/11/25 14:00 09/11/25 14:00 09/11/25 13:45 09/11/25 13:30 09/11/25 13:15 09/11/25 13:10 09/11/25 13:05 09/11/25 13:00 Room Air 09/11/25 13:00 09/11/25 12:59 09/11/25 12:19 Room Air 09/11/25 12:02 Room Air 09/11/25 11:30 09/11/25 11:21 Room Air 09/11/25 11:00 09/11/25 10:30 09/11/25 10:20 09/11/25 10:12 Room Air 09/11/25 09:55 Room Air 09/11/25 09:55 Room Air 09/11/25 09:47 Intake and Output 09/11/25 09/11/25 09/12/25 15:59 23:59 07:59 Intake Total 1410 / 2140 730 / 2140 Output Total 0 / 0 0 / 0 Balance 1410 / 2140 730 / 2140 Intake: Intake, Oral Amount 160 / 640 480 / 640 Intake, Total IV Amount 1000 / 1250 250 / 1250 0.9 % Sodium Chloride 250 ml @ 250 / 250 25 mls/hr IV .Q10H [facility] Rx#: [id number] Lactated Ringers 1000ML 1,000 1000 / 1000 ml @ 999 mls/hr IV .Q1H1M ONE Rx#:[id number] Intake (Blood Product) Amt 250 / 250 Red Blood Cells Unit 250 / 250 [id number] Output: Output, Urine Amount 0 / 0 0 / 0 Other: Number of Unmeasured Voids 0 1 Number of Urine Attends/Diapers 1 Weight 64.07 kg 63.639 kg Patient Weight 09/12/25 23:59 Weight 63.639 kg Laboratory Results - last 24 hr 09/11/25 09:58: Stool Occult Blood Positive A 09/11/25 10:00: Blood Type Confirm A Negative 09/11/25 10:30: WBC 4.4 L, RBC 2.67 L, Hgb 6.7 L*, Hct 23.4 L, MCV 87.6, MCH 25.1 L, MCHC 28.6 L, RDW 15.8, Plt Count 155, MPV 12.6 H, Neut % (Auto) 71.0, Lymph % (Auto) 14.9, [place] % (Auto) 12.0 H, Eos % (Auto) 1.4, Baso % (Auto) 0.2, Neut # (Auto) 3.2, Lymph # (Auto) 0.7, [place] # (Auto) 0.5, Eos # (Auto) 0.1, Baso # (Auto) 0.0, PT 13.2 H, INR 1.21 H, Sodium 140, Potassium 4.2, Chloride 112 H, Carbon Dioxide 21 L, Anion Gap 11.2, BUN 19, Creatinine 1.00, Estimated Creat Clear 53, Estimated GFR 71, Est GFR ( Amer) 86, Glucose 119 H, Calcium 9.4, Total Bilirubin 0.7, AST 18, ALT 12, Alkaline Phosphatase 86, Total Protein 5.7 L, Albumin 3.8, Globulin 1.9, Albumin/Globulin Ratio 2.0 H, HCV Ab CHANTEL w/Rflx PCR Qn Negative, HIV Ag/Ab Combo Qual Negative, Blood Type A Negative, Antibody Screen Negative, Crossmatch (AHG) See Detail 09/11/25 17:40: Hgb 7.7 L D, Hct 26.4 L I & O for Labs for Last 24 Hours: Intake & Output 09/09/25 09/10/25 09/11/25 09/12/25 23:59 23:59 23:59 23:59 Intake Total 2139 / 2139 Output Total 0 / 0 Balance 2139 / 2139 Weight 64.07 kg 63.639 kg Constitutional: Present no acute distress, chronically ill appearing and cooperative Respiratory: Present normal respiratory effort; Absent respiratory distress, stridor or wheezes Cardiac: Present Reg Rate and Rhythm GI: Present soft; Absent distention or tenderness Extremities: Present normal inspection and full ROM Skin: Present intact; Absent erythema Neuro: Present Grossly Intact, alert, awake and moves all extremities Comment:: Oriented to self and place this morning Assessment and Plan *Assessment and plan (1) GI (gastrointestinal bleed): Problem Comment: Status post EGD with argon plasma coagulation and clip placement at outside facility approximately 3 weeks ago Status: Acute Qualifiers: GI bleed type/associated pathology: unspecified gastrointestinal hemorrhage type Qualified Code(s): K92.2 - Gastrointestinal hemorrhage, unspecified Category: Medical Code(s): K92.2 - Gastrointestinal hemorrhage, unspecified (2) Anemia: Status: Acute Qualifiers: Anemia type: unspecified type Qualified Code(s): D64.9 - Anemia, unspecified Category: Medical Code(s): D64.9 - Anemia, unspecified (3) CABG (coronary artery bypass graft) planned: Status: Chronic Category: Medical Code(s): Z78.9 - Other specified health status (4) Hypertension: Status: Chronic Qualifiers: Hypertension type: primary hypertension Qualified Code(s): I10 - Essential (primary) hypertension Category: Medical Code(s): I10 - Essential (primary) hypertension (5) Atrial fibrillation: Status: Chronic Category: Medical Code(s): I48.91 - Unspecified atrial fibrillation (6) Chronic anticoagulation: Status: Chronic Category: Medical Code(s): Z79.01 - vermin exterminator (current) use of anticoagulants (7) Dementia: Status: Chronic Category: Medical Code(s): F03.90 - Unspecified dementia, unspecified severity, without behavioral disturbance, psychotic disturbance, mood disturbance, and anxiety Plan 89-year-old male with worsening anemia in the setting of GI bleed. Recently worked up for similar presentation within the past month. Discussed case with ER physician, request admission for transfusion and further evaluation by surgery or GI if patient's condition worsens. I decided to admit for further care. Hemoglobin stable. No further signs of bleeding. Will slowly advance diet. 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 - Hemoglobin 6.7 on admission. Status post 1 unit packed red blood cells. White count 4.8, hemoglobin 7.5. Platelets 134. - Transfuse for goal hemoglobin greater than 7. - Given significant blood loss over the past few months per chart review, will administer 1 dose of Venofer 200 mg IV today - Reviewed records from patient's visit to [facility] the end of July that showed EGD with duodenal erosions, angioectasia, and argon laser cauterization along with placement of 2 clips on large stomach angiectasia that bled with manipulation. -Kidney function normal with BUN 18, creatinine 0.9. Repeat CBC, CMP, magnesium ordered for the morning - Holding on further EGD at this time after discussion with family due to concern for effect of anesthesia on patient's mentation. - Discussed case with on-call surgeon, recommends conservative management at this time. Will hold on any scope given recent findings and known presence of angioectasia. Medically manage and transfuse. Further consideration of intervention in the next day or 2 A-fib HTN - Holding anticoagulation due to GI bleed - Appears rate controlled at this time with heart rate in the 80s. Continue carvedilol 25 mg twice daily - Will have further discussions about risks and benefits of anticoagulation prior to discharge Dementia: Resume donepezil 5 mg nightly BPH: Continue tamsulosin 0.4 mg nightly Full code SCDs Clear liquid diet
[2025-09-12 07:28] LABS: Albumin Level 3.2 g/dl (3.5-5.0); Chloride 111 mmol/L (98-107); Potassium 4.2 mmoL/L (3.5-5.1); Sodium 136 mmol/L (136-145)
[2025-09-12 07:30] LABS: Blood Urea Nitrogen 18 mg/dl (9-20); Creatinine Clearance Estimated 47 mL/min (50-200); Creatinine,Serum 0.90 mg/dl (0.66-1.25); Estimated Glomerular Filt Rate 80 ml/min (>60); GFR (African American) 97 ML/MIN (>60)
[2025-09-12 07:31] LABS: Alanine Aminotransferase 13 U/L (12-78); Albumin/Globulin Ratio 1.7 (1.1-1.8); Alkaline Phosphatase 80 U/L (38-126); Anion Gap 9.2 mEq/L (5-15); Aspartate Amino Transferase 23 U/L (17-59); Bilirubin,Total 2.1 mg/dl (0.2-1.3); Calcium 8.8 mg/dl (8.4-10.2); Carbon Dioxide 20 mmol/L (22.0-30.0); Globulin 1.9 g/dL (1.3-3.2); Glucose 84 mg/dl (74-100); Magnesium 2.3 mg/dl (1.6-2.3); Total Protein,Serum 5.1 g/dl (6.3-8.2)
--- NOTE | 2025-09-12 08:14 | P.PN_ITS ---
Subjective Patient reports: no new complaints and feels better Exam Data for Last 24 hours Vital signs and Labs for Last 24 Hours: Temp Pulse Resp BP Pulse Ox O2 Del Method 97.3 F L 88 14 132/65 98 Room Air 09/12/25 04:24 09/12/25 04:24 09/12/25 04:24 09/12/25 04:24 09/12/25 04:24 09/12/25 06:46 Laboratory Results - last 24 hr 09/11/25 09:58: Stool Occult Blood Positive A 09/11/25 10:00: Blood Type Confirm A Negative 09/11/25 10:30: WBC 4.4 L, RBC 2.67 L, Hgb 6.7 L*, Hct 23.4 L, MCV 87.6, MCH 25.1 L, MCHC 28.6 L, RDW 15.8, Plt Count 155, MPV 12.6 H, Neut % (Auto) 71.0, Lymph % (Auto) 14.9, [place] % (Auto) 12.0 H, Eos % (Auto) 1.4, Baso % (Auto) 0.2, Neut # (Auto) 3.2, Lymph # (Auto) 0.7, [place] # (Auto) 0.5, Eos # (Auto) 0.1, Baso # (Auto) 0.0, PT 13.2 H, INR 1.21 H, Sodium 140, Potassium 4.2, Chloride 112 H, Carbon Dioxide 21 L, Anion Gap 11.2, BUN 19, Creatinine 1.00, Estimated Creat Clear 53, Estimated GFR 71, Est GFR ( Amer) 86, Glucose 119 H, Calcium 9.4, Total Bilirubin 0.7, AST 18, ALT 12, Alkaline Phosphatase 86, Total Protein 5.7 L, Albumin 3.8, Globulin 1.9, Albumin/Globulin Ratio 2.0 H, HCV Ab CHANTEL w/Rflx PCR Qn Negative, HIV Ag/Ab Combo Qual Negative, Blood Type A Negative, Antibody Screen Negative, Crossmatch (AHG) See Detail 09/11/25 17:40: Hgb 7.7 L D, Hct 26.4 L 09/12/25 06:52: WBC 4.8, RBC 2.87 L, Hgb 7.5 L, Hct 24.8 L, MCV 86.4, MCH 26.1 L , MCHC 30.2 L, RDW 15.8, Plt Count 134 L, MPV 12.8 H, Neut % (Auto) 64.2, Lymph % (Auto) 17.9, [place] % (Auto) 15.6 H, Eos % (Auto) 1.3, Baso % (Auto) 0.6, Neut # (Auto) 3.1, Lymph # (Auto) 0.9, [place] # (Auto) 0.7, Eos # (Auto) 0.1, Baso # (Auto) 0.0, Sodium 136, Potassium 4.2, Chloride 111 H, Carbon Dioxide 20 L, Anion Gap 9.2, BUN 18, Creatinine 0.90, Estimated Creat Clear 47, Estimated GFR 80, Est GFR ( Amer) 97, Glucose 84 D, Calcium 8.8, Magnesium 2.3, Total Bilirubin 2.1 H, AST 23 D, ALT 13, Alkaline Phosphatase 80, Total Protein 5.1 L , Albumin 3.2 L D, Globulin 1.9, Albumin/Globulin Ratio 1.7 I & O for Last 24 hours: Intake & Output 09/09/25 09/10/25 09/11/25 09/12/25 11:59 11:59 11:59 11:59 Intake Total 2140 / 2140 Output Total 0 / 0 0 / 0 Balance 0 / 0 2140 / 2140 Weight 160 lb 140 lb 4.8 oz Constitutional Constitutional: no acute distress *Routine Respiratory Exam Respiratory: Absent respiratory distress *Routine Cardiovascular Exam Cardiovascular: Absent tachycardia Progress Note: A&P Assessment and plan (1) GI (gastrointestinal bleed): Problem details: Status post EGD with argon plasma coagulation and clip placement at outside facility approximately 3 weeks ago Status: Acute (2) Anemia: Status: Acute (3) Atrial fibrillation: Status: Chronic (4) Chronic anticoagulation: Status: Chronic Assessment and Plan Assessment and Plan for All Diagnoses:: Hemoglobin this a.m. stable. Continue to hold anticoagulation just to the degree that is medically feasible Continue proton pump inhibition and Carafate Continue serial hemoglobin/hematocrit Diet as per primary service (n.p.o. after midnight once again pending results of follow-up hemoglobin/hematocrits)
[2025-09-12] MEDS: PANTOPRAZOLE 40MG VIAL 40 MG IV ×2 (09:08→20:46)
[2025-09-12] MEDS: SODIUM CHLORIDE 0.9% 10ML VIAL 10 ML IV (09:08)
[2025-09-12] MEDS: CARVEDILOL 25MG TABLET 25 MG PO ×2 (09:09→20:46)
[2025-09-12] MEDS: IRON SUCROSE COMPLEX 200 MG in 0.9 % SODIUM CHLORIDE 100 ML 220 MG IV (09:29)
[2025-09-12] MEDS: SUCRALFATE 1GM/10ML SUSP UDC 1 GM NG-TUBE ×3 (10:47→20:46)
[2025-09-12 14:09] LABS: Hematocrit 24.4 % (42.0-52.0); Hemoglobin 7.5 g/dL (14.1-18.0)
--- OUTSIDE RECORDS SUMMARY | 2025-09-12 16:01 | XMS_ITS | Data Portability ---
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 Back pain sounds largely muscular and not reproducible at this time. Will refer as noted. Patient appears appropriate in speech at this time during exam but does appear to have some challenge in recalling dates. Advised to follow-up in 3 months or sooner if needed. [email or web address] Not available 11/21/2023 10:34:16 05/20/2024 05/20/2024 XR as ordered. Medications as prescribed. Physical therapy as ordered. Provided samples of acetaminophen to patient and instructed r/t dosage and use. Keep appointment with cardiology as planned. Follow up if no improvement or worsening and as needed. Not available 05/20/2024 11:06:40 Plan of Treatment Reminders Order Date Submit Date Provider Last Modified By Organization Details Last Modified Time Details Appointments None recorded. Lab None recorded. Referral physical therapist referral - first available appt 2023 024 [facility], [address], [place], [address], 13:55:24 neurologist referral - first available appt 2023 024 [email or web address] Neurology Updated, [address] [facility], [address] [facility], [place], [address], 4 09:48:17 Procedures None recorded. Surgeries None recorded. Imaging XR, thoracic spine, 2 view 2023 [facility], [facility], [place], [address], 4 12:00:47 Medication Orders lidocaine 5 % topical patch 2023 [facility], [address] [place], [address], 4 08:57:27 Medrol (Toñito) 4 mg tablets in a dose pack 2023 [facility], [address] [place], [address], 4 08:57:25 Patient TargetsNo targets recorded. Patient Instructions Encounter Date Encounter Id Patient Instructions Last Modified By Organization Details Last Modified Time 05/20/2024 [id number] healthy upper back: exercises Not available 05/20/2024 08:56:52 Reason for Referral Neurologist Referral for Mem ory impairment first available appt Referring Physician: [facility]al [facility], Encounter Date: 11/21/2023 Physical Therapist Referral for Thoracic back pain first available appt Referring Physician: Danisha Nguyen [facility], Encounter Date: 05/20/2024 Results Created Date Observation Date Name Description Value Unit Range Abnormal Flag Note LastModifiedBy Organization Detail LastModifiedTime 09/02/2009/03/2025 CBC WITH DIFFE RENTI AL/PL ATELE T WBC 6.3 x10e3 /uL 3.4-10 .8 normal Not Available [facility] ([facility]) [address] [facility], [place], [address], 09/03/2025 04:08:10 09/02/20 25 09/03/2025 CBC WITH DIFFE RENTI AL/PL ATELE T RBC 3.19 x10e6 /uL 4.14-5 .80 below low normal Not Available [facility] ([facility]) [address] [place], [address], 09/03/2025 04:08:10 09/02/20 25 09/03/2025 CBC WITH DIFFE RENTI AL/PL ATELE T hemoglobin 8.6 g/dL 13.0-1 7.7 below low normal Not Available [facility] ([facility]) [address] [place], [address], 09/03/2025 04:08:10 09/02/20 25 09/03/2025 CBC WITH DIFFE RENTI AL/PL ATELE T hematocrit 28.1 % 37.5-5 1.0 below low normal Not Available [facility] ([facility]) [address] [place], [address], 09/03/2025 04:08:10 09/02/20 25 09/03/2025 CBC WITH DIFFE RENTI AL/PL ATELE T MCV 88 fL 79-97 normal Not Available [facility] ([facility]) [address] [place], [address], 09/03/2025 04:08:10 09/02/20 25 09/03/2025 CBC WITH DIFFE RENTI AL/PL ATELE T MCH 27.0 pg 26.6-3 3.0 normal Not Available [facility] ([facility]) [address] [place], [address], 09/03/2025 04:08:10 09/02/20 25 09/03/2025 CBC WITH DIFFE RENTI AL/PL ATELE T MCHC 30.6 g/dL 31.5-3 5.7 below low normal Not Available [facility] ([facility]) [address] [place], [address], 09/03/2025 04:08:10 09/02/20 25 09/03/2025 CBC WITH DIFFE RENTI AL/PL ATELE T RDW 14.8 % 11.6-1 5.4 Not Available [facility] ([facility]) [address] [facility], [place], [address], 09/03/2025 04:08:10 09/02/20 25 09/03/2025 CBC WITH DIFFE RENTI AL/PL ATELE T platelets 275 x10e3 /uL 150-45 0 normal Not Available [facility] ([facility]) [address] [facility], [place], [address], 09/03/2025 04:08:10 09/02/20 25 09/03/2025 CBC WITH DIFFE RENTI AL/PL ATELE T neutrophils 74 % not estab. normal Not Available [facility] ([facility]) [address] [facility], [place], [address], 09/03/2025 04:08:10 09/02/20 25 09/03/2025 CBC WITH DIFFE RENTI AL/PL ATELE T lymphs 13 % not estab. normal Not Available [facility] ([facility]) [address] [facility], [place], [address], 09/03/2025 04:08:10 09/02/20 25 09/03/2025 CBC WITH DIFFE RENTI AL/PL ATELE T monocytes 11 % not estab. normal Not Available [facility] ([facility]) [address] [facility], [place], [address], 09/03/2025 04:08:10 09/02/20 25 09/03/2025 CBC WITH DIFFE RENTI AL/PL ATELE T eos 1 % not estab. normal Not Available [facility] ([facility]) [address] [facility], [place], [address], 09/03/2025 04:08:10 09/02/20 25 09/03/2025 CBC WITH DIFFE RENTI AL/PL ATELE T basos 1 % not estab. 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 0 normal Not Available [facility] ([facility]) [address] [facility], [place], [address], 09/03/2025 04:08:10 09/02/20 25 09/03/2025 CBC WITH DIFFE RENTI AL/PL ATELE T lymphs (absolute) 0.8 x10e3 /uL 0.7-3. 1 normal Not Available [facility] ([facility]) [address] [place], [address], 09/03/2025 04:08:10 09/02/20 25 09/03/2025 CBC WITH DIFFE RENTI AL/PL ATELE T monocytes(ab solute) 0.7 x10e3 /uL 0.1-0. 9 normal Not Available [facility] ([facility]) [address] [place], [address], 09/03/2025 04:08:10 09/02/20 25 09/03/2025 CBC WITH DIFFE RENTI AL/PL ATELE T eos (absolute) 0.1 x10e3 /uL 0.0-0. 4 normal Not Available [facility] ([facility]) [address] [facility], [place], [address], 09/03/2025 04:08:10 09/02/20 25 09/03/2025 CBC WITH DIFFE RENTI AL/PL ATELE T baso (absolute) 0.0 x10e3 /uL 0.0-0. 2 normal Not Available [facility] ([facility]) [address] [facility], [place], [address], 09/03/2025 04:08:10 09/02/20 25 09/03/2025 CBC WITH DIFFE RENTI AL/PL ATELE T immature granulocytes 0 % not estab. Not Available [facility] ([facility]) [address] [facility], [place], [address], 09/03/2025 04:08:10 09/02/20 25 09/03/2025 CBC WITH DIFFE RENTI AL/PL ATELE T immature grans (abs) 0.0 x10e3 /uL 0.0-0. 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 METAB OLIC PANEL (14) glucose 121 mg/dL 70-99 above high normal Not Available [facility] ([facility]) [address] [facility], [place], [address], 09/03/2025 04:08:10 09/02/20 25 09/03/2025 COMP. METAB OLIC PANEL (14) BUN 18 mg/dL 8-27 normal Not Available [facility] ([facility]) [address] [facility] [place], [address], 09/03/2025 04:08:10 09/02/20 25 09/03/2025 COMP. METAB OLIC PANEL (14) creatinine 1.00 mg/dL 0.76-1 .27 normal Not Available [facility] ([facility]) [address] [place], [address], 09/03/2025 04:08:10 09/02/20 25 09/03/2025 COMP. METAB OLIC PANEL (14) eGFR 73 mL/mi n/1.7 3 >59 normal Not Available [facility] ([facility]) [address] [facility] [place], [address], 09/03/2025 04:08:10 09/02/20 25 09/03/2025 COMP. METAB OLIC PANEL (14) BUN/creatini ne ratio 18 10-24 normal Not Available [facility] ([facility]) [address] [facility] [place], [address], 09/03/2025 04:08:10 09/02/20 25 09/03/2025 COMP. METAB OLIC PANEL (14) sodium 147 mmol/ L 134-14 4 above high normal Not Available [facility] ([facility]) [address] [facility] [place], [address], 09/03/2025 04:08:10 09/02/20 25 09/03/2025 COMP. METAB OLIC PANEL (14) potassium 3.9 mmol/ L 3.5-5. 2 normal Not Available [facility] ([facility]) [address] [facility] [place], [address], 09/03/2025 04:08:10 09/02/20 25 09/03/2025 COMP. METAB OLIC PANEL (14) chloride 110 mmol/ L 96-106 above high normal Not Available [facility] ([facility]) [address] [place], [address], 09/03/2025 04:08:10 09/02/20 25 09/03/2025 COMP. METAB OLIC PANEL (14) carbon dioxide, total 19 mmol/ L 20-29 below low normal Not Available [facility] ([facility]) [address] [place], [address], 09/03/2025 04:08:10 09/02/20 25 09/03/2025 COMP. METAB OLIC PANEL (14) calcium 9.2 mg/dL 8.6-10 .2 normal Not Available [facility] ([facility]) [address] [place], [address], 09/03/2025 04:08:10 09/02/20 25 09/03/2025 COMP. METAB OLIC PANEL (14) protein, total 5.9 g/dL 6.0-8. 5 below low normal Not Available [facility] ([facility]) [address] [place], [address], 09/03/2025 04:08:10 09/02/20 25 09/03/2025 COMP. METAB OLIC PANEL (14) albumin 4.3 g/dL 3.7-4. 7 normal Not Available [facility] ([facility]) [address] [place], [address], 09/03/2025 04:08:10 09/02/20 25 09/03/2025 COMP. METAB OLIC PANEL (14) globulin, total 1.6 g/dL 1.5-4. 5 Not Available [facility] ([facility]) [address] [place], [address], 09/03/2025 04:08:10 09/02/20 25 09/03/2025 COMP. METAB OLIC PANEL (14) bilirubin, total 0.7 mg/dL 0.0-1. 2 normal Not Available [facility] ([facility]) [address], [place], [address], 09/03/2025 04:08:10 09/02/20 25 09/03/2025 COMP. METAB OLIC PANEL (14) alkaline phosphatase 100 IU/L 48-129 normal Not Available [facility] ([facility]) [address] [facility] [place], [address], 09/03/2025 04:08:10 09/02/20 25 09/03/2025 COMP. METAB OLIC PANEL (14) AST (SGOT) 15 IU/L 0-40 normal Not Available [facility] ([facility]) [address] [facility] [place], [address], 09/03/2025 04:08:10 09/02/20 25 09/03/2025 COMP. METAB OLIC PANEL (14) ALT (SGPT) 12 IU/L 0-44 normal Not Available [facility] ([facility]) [address] [facility], [place], [address], 09/03/2025 04:08:10 09/02/20 25 09/03/2025 LIPID PANEL cholesterol, total 116 mg/dL 100-19 9 normal Not Available [facility] ([facility]) [address] [facility] [place], [address], 09/03/2025 04:08:11 09/02/20 25 09/03/2025 LIPID PANEL triglyceride s 81 mg/dL 0-149 normal Not Available [facility] ([facility]) [address] [facility] [place], [address], 09/03/2025 04:08:11 09/02/20 25 09/03/2025 LIPID PANEL HDL cholesterol 39 mg/dL >39 below low normal Not Available [facility] ([facility]) [address] [facility] [place], [address], 09/03/2025 04:08:11 09/02/20 25 09/03/2025 LIPID PANEL VLDL cholesterol ericka 16 mg/dL 5-40 Not Available [facility] ([facility]) [address] [facility], [place], [address], 09/03/2025 04:08:11 09/02/20 25 09/03/2025 LIPID PANEL LDL chol calc ([facility]) 61 mg/dL 0-99 Not Available [facility] ([facility]) [address] [facility], [place], [address], 09/03/2025 04:08:11 09/02/20 25 09/03/2025 LIPID PANEL LDL calc comment: 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 [email or web address] [address], [address], 05/20/2024 15:19:14 02/09/20 25 02/08/2025 CT, head + brain , w/o contr ast No observ ation record ed. [address], [place], [address], 02/08/2025 17:19:10 06/15/20 25 06/15/2025 CT, brain , w/o contr ast No observ ation record ed. [address], [place], [address], 06/16/2025 08:17:36 09/12/20 25 09/11/2025 imagi ng/di kathrineos tic resul t No observ ation record ed. [facility] [address], [place], [address], 09/12/2025 05:43:58 Result Notes None recorded. Problems Name Problem SNOMED Code Status Onset Date Resolution Date Notes Provider Name and Address Organization Details Recorded Time Percutaneous coronary intervention Active 2023 Stents x [address]USS [address], [address], [employer] 4 09:38:51 Hypertensive disorder 55202469 Active 2023 MIKAL STRAUSS [address], [address], [employer] 4 09:39:10 Cardiac pacemaker procedure Active [address]23 [address]AUSS [address], [address], [employer] 4 09:42:31 Low back pain 004977139 Active 2023 MIKAL STRAUSS [address], [address], [employer] 4 09:45:47 Memory impairment 822349765 Active 2023 MIKAL STRAUSS [address], [address], [employer] 4 09:48:39 Thoracic back pain 970066235 Active 2023 Danisha Vazquezdayana ASSISTANT SPA MANAGER [address] [place] [address], [address], [employer] 4 08:55:10 Gastrointesti nal hemorrhage 56940129 Active 2024 Danisha Nguyen ASSISTANT SPA MANAGER [address] [place] [address], [address], [employer] 5 13:37:13 Hyperlipidemi a 47146722 Active 2024 Danisha Nguyen ASSISTANT SPA MANAGER [address] [place] [address], [address], [employer] 5 13:37:48 Problem Notes None recorded. Procedures Surgical History Date Name Laterality Status Provider Name and Address Organization Details Recorded Time Angioplasty completed NISHA CROWDER [employer] 11/21/2023 09:13:48 Cardiac Surgery completed NISHA CROWDER [employer] [facility], [employer]. 11/21/2023 09:13:48 Imaging Results None recorded. Procedure Notes None recorded. Medical Equipment None Reported. Allergies Allergen ID Allergen Name Allergen Category Reaction Reaction Severity Criticality Documentation Date Start Date Code Code System Note Provider Name and Address Organization Details Recorded Time 32082 Product containin g penicilli n (product) medicatio n other Not available Not available 11/21/2023 76535 8001 SNOMED NISHA CROWDER [facility], [employer] 09:13:47 01499 niacin medicatio n other Not available low 08/11/20252022 7393 RxNorm Not Available [employer] - External [employer] - prod 15:45:22 83186 pitavasta tin calcium medicatio n other Not available low 08/11/20252022 41342 0 RxNorm Other react ion(s ): Muscl e spasm , Muscl e stiff ness 3Info obtai ander from Dr Gisselle Cheng [place] Not Available [employer] - External Data Service - prod 5 15:45:22 56613 pravastat in medicatio n other Not available low 08/11/20252022 89293 RxNorm Other react ion(s ): muscl e weakn ess, muscl e weakn ess Not Available [employer]ad - External Data Service - prod 5 15:45:22 24541 rosuvasta tin medicatio n other Not available low 08/11/20252022 20606 2 RxNorm Other react ion(s ): Muscl e spasm , Muscl e stiff ness 2Info obtai ander from MANDI Bowers Not Available eyad - External Data Service - prod 5 15:45:22 51411 simvastat in medicatio n other Not available low 08/11/20252022 11218 RxNorm Other react ion(s ): eleva kady lft s, eleva kady lft s Not Available [facility]ad - External Data Service - prod 15:45:22 85701 tetracycl ine medicatio n Not available Not available low 08/11/20252021 18481 RxNorm unrec ogniz ed react ion (text : Nause a And Vomit ing, code: 41273 000) (from exter nal sourc e) Not Available eyad - External Data Service - prod 15:45:22 95338 colesevel am hydrochlo ride medicatio n other Not available low 08/11/20252022 11519 5 RxNorm Not Available eyad - External Data Service - prod 15:45:22 67039 pitavasta tin Not available Not available Not available Not available 09/01/20252022 03751 4 RxNorm Other react ion(s ): Muscl e spasm , Muscl e stiff ness 3Info obtai ander from Dr Gisselle streeter [place] Not Available eyad - External Data Service - prod 13:37:48 45193 Nicotinic acid (substanc e) Not available rash Not available low 09/01/20252022 25528 3001 SNOMED Not Available [employer]ad - External Data Service - prod 13:37:49 Medications Name Sig Start Date Stop Date Status Note LastModified by Organization Details LastModified Time carvedilol 25 mg tablet Take 1 tablet twice a day by oral route for 90 days. active Not Available Not Available No t Available Protonix 40 mg tablet,mahendra yed release Take 1 tablet every day by oral route. 2024 active Not Available Not Available Not Avai lable donepezil 5 mg tablet TAKE ONE TABLET BY MOUTH EVERY DAY FOR memory loss active Not Available Not Available No t Available valacyclovi r 1 gram tablet completed Not Available Not Available Not Available Medrol (Toñito) 4 mg tablets in a dose pack Take as directed 2023 active Not Available Not Available Not Avai lable prednisone 20 mg tablet completed Not Available Not Available Not Available sulfamethox azole 800 mg-trimetho prim 160 mg tablet TAKE 1 TABLET 2 TIMES EACH DAY FOR 10 DAYS completed Not Available Not Available Not Available aspirin 81 mg tablet,mahendra yed release Take 1 tablet every day by oral route. active Not Available Not Available No t Available tamsulosin 0.4 mg capsule Take 1 capsule every day by oral route for 90 days. active Not Available Not Available No t Available cephalexin 500 mg capsule completed Not Available Not Available Not Available dexamethaso ne 4 mg tablet completed Not Available Not Available Not Available lidocaine 5 % topical patch APPLY 1 PATCH BY TOPICAL ROUTE ONCE DAILY (MAY WEAR UP TO 12HOURS.) 2023 active Not Available Not Available Not Avai lable Ventolin HFA 90 mcg/actuati on aerosol inhaler completed Not Available Not Available Not Available alfuzosin ER 10 mg tablet,exte nded release 24 hr completed Not Available Not Available Not Available Eliquis 5 mg tablet TAKE 1 TABLET 2 TIMES EACH DAY active Not Available Not Available No t Available Repatha SureClick 140 mg/mL subcutaneou s pen injector Inject 140 mg every 2 weeks by sub-q route for 28 days. active Not Available Not Available No t Available Vitals Date Recorded Body weight Body mass index (BMI) Body height Heart rate Oxygen saturation Systolic And Diastolic Provider Name and Address Organization Details Last Updated DateTime 4 12668.3 7 g 26 kg/m2 167.64 cm 60 /min 94 % 135/75 mm[Hg] NISHA CROWDER [employer] 4 09:21:47 Date Recorded Body height Body mass index (BMI) Body weight Heart rate Oxygen saturation Systolic And Diastolic Systolic And Diastolic Systolic And Diastolic Provider Name and Address Organization Details Last Updated DateTime 4 167.64 cm 25.5 kg/m2 34037.9 9 g 62 /min 96 % 165/70 mm[Hg] 156/73 mm[Hg] 158/73 mm[Hg] Melina Russo [employer] 4 08:27:40 Social History Question Answer Notes LastModified by Organizat ion Details LastModified Time Tobacco Smoking Status Former Smoker NISHA ortiz [employer] 11/21/2023 09:13:48 Do You Have An Advance Directive? Yes [email or web address] Information not available 11/21/2023 Is Your Home Air Conditioned? Yes [email or web address] Information not available 11/21/2023 Do You Wear A Helmet When Biking? No [email or web address] Information not available 11/21/2023 Are You Blind Or Do You Have Difficulty Seeing? No [email or web address] Information not available 11/21/2023 What Is Your Level Of Caffeine Consumption? Occasional [email or web address] Information not available 11/21/2023 In The 14 Days Before Symptom Onset, Have You Had Close Contact With A Laboratory-confir med COVID-19 While That Case Was Ill? No [email or web address] Information not available 05/20/2024 In The 14 Days Before Symptom Onset, Have You Had Close Contact With A Person Who Is Under Investigation For COVID-19 While That Person Was Ill? No [email or web address] Information not available 05/20/2024 Have You Been To An Area Known To Be High Risk For COVID-19? No [email or web address] Information not available 05/20/2024 Are You Deaf Or Do You Have Serious Difficulty Hearing? No [email or web address] Information not available 11/21/2023 What Type Of Diet Are You Following? REGULAR [email or web address] Information not available 05/20/2024 How Many Days Of Moderate To Strenuous Exercise, Like A Brisk Walk, Did You Do In The Last 7 Days? 2 [email or web address] Information not available 11/21/2023 Have There Been Any Changes To Your Family Or Social Situation? No [email or web address] Information no t available 11/21/2023 When Did You Quit Smoking? 16+yearssincel jasmin Information not available 11/21/2023 Are There Any Guns Present In Your Home? No [email or web address] Information not available 11/21/2023 Which Of Your Hands Is Dominant? Right [email or web address] Information not available 11/21/2023 Do You Have A Medical Power Of Manager Banking? Yes [email or web address] Information not available 11/21/2023 What Was The Date Of Your Most Recent Tobacco Screening? 05/20/2024 [email or web address] Information not available 05/20/2024 What Is Your Current Pack Years? 20-29packyears [email or web address] Information not available 11/21/2023 Do You Have Any Pets? No [email or web address] Information not available 11/21/2023 What Is Your Relationship Status? [email or web address] Information not available 11/21/2023 Have You Repeated Any Grades? No [email or web address] Information not available 11/21/2023 Do You Use Your Seat Belt Or Car Seat Routinely? Yes Information not available 11/21/2023 Are You Sexually Active? No [email or web address] Information not available 11/21/2023 Do You Have Any Siblings? Two Sisters [email or web address] Information not available 11/21/2023 Do You Have Smoke And Carbon Monoxide Detectors In Your Home? Yes Information not available 11/21/2023 At What Age Did You Start Smoking Tobacco? 24 [email or web address] Information not available 11/21/2023 Are You Passively Exposed To Smoke? No [email or web address] Information no t available 11/21/2023 Are There Any Smokers In Your House? No [email or web address] Information not available 11/21/2023 How Much Tobacco Do You Smoke? No Information not available 11/21/2023 Do You Participate In Social Media? No [email or web address] Information not available 05/20/2024 What Types Of Sporting Activities Do You Participate In? 0 [email or web address] Information not available 11/21/2023 Do You Use Sunscreen Routinely? No [email or web address] Information not available 11/21/2023 Has Tobacco Cessation Counseling Been Provided? No Information not available 05/20/2024 How Many Years Have You Smoked Tobacco? 27 [email or web address] Information not available 11/21/2023 Have You Recently Traveled Abroad? No [email or web address] Information not available 05/20/2024 Do You Have Difficulty Walking Or Climbing Stairs? No [email or web address] Information not available 11/21/2023 Are You Currently In School? No [email or web address] Information not available 05/20/2024 Do You Have Any Dietary Restrictions? No Information not available 05/20/2024 Sex: Male Functional Status Question Answer Note LastModified by Organizat ion Details LastModified Time Do you use any illicit or recreational drugs? No [email or web address] Information not available 11/21/2023 Do you or have you ever used any other forms of tobacco or nicotine? No [email or web address] Information not available 11/21/2023 What is your level of alcohol consumption? None [email or web address] Information not available 11/21/2023 Are you currently employed? No [email or web address] Information not available 11/21/2023 Do you have transportation difficulties? No [email or web address] Information not available 05/20/2024 Are you able to walk independently without assistance or assistive devices? YESWOREST [email or web address] Information not available 11/21/2023 Do you have difficulty doing errands alone? No Information not available 11/21/2023 Are you able to care for yourself independently? Yes [email or web address] Information not available 11/21/2023 Do you have difficulty dressing, bathing, grooming, or toileting? No [email or web address] Information not available 11/21/2023 What is your exercise level? Occasional [email or web address] Information not available 11/21/2023 Mental Status Question Answer Note LastModified by Organizat ion Details LastModified Time Do you feel stressed (tense, restless, nervous, or anxious, or unable to sleep at night)? [id number] [email or web address] Information not available 05/20/2024 Do you have difficulty concentrating, remembering or making decisions? Yes [email or web address] Information no t available 11/21/2023 Are you or have you been involved with bullying? No [email or web address] Information not available 11/21/2023 Family History Relationship Description Onset Age of this Age Resolved Age Notes LastModified by Organization Details LastModified Time Mother Alzheimer's disease [email or web address] Not available 09:13:47 Mother Arthritis [email or web address] Not avai lable 11/21/2023 09:13:47 Mother Heart disease [email or web address] Not available 09:13:47 Sister Malignant neoplasm of lung [email or web address] Not available 09:13:47 Sister Kidney disease Not available 09:13:47 Father Alzheimer's disease [email or web address] Not available 09:13:47 Father Heart disease Not available 09:13:47 Father Kidney disease Not available 09:13:47 Medical History Condition Response Vision or Eye Problems Y Bladder or Kidney Problems Y Arthritis Y High Cholesterol Y Hospitalizations N Heart Disease Y Emergency room visit since last appointm ent. N Cancer Y Hypertension Y Kidney Disease Y Immunizations Vaccine Type Date Status Note Provider Nam e and Address Organization Details Recorded Time Influenza, high-dose, quadrivalent, PF 08/11/2021 completed Melina ortiz, [employer]. 05/20/2024 08:20:40 COVID-19, mRNA, LNP-S, PF, 100 mcg/0.5mL dose or 50 mcg/0.25mL dose 11/17/2020 completed Melina ortiz [employer]. 05/20/2024 08:20:40 COVID-19, mRNA, LNP-S, PF, 100 mcg/0.5mL dose or 50 mcg/0.25mL dose 12/15/2020 ruthy ortiz [employer]. 05/20/2024 08:20:40 COVID-19, mRNA, LNP-S, PF, 100 mcg/0.5mL dose or 50 mcg/0.25mL dose 08/11/2021 completed Melina ortiz [employer]. 05/20/2024 08:20:40 Past Encounters Encounter ID Performer Location Encounter Start Date Encounter Closed Date Diagnosis/Indication Diagnosis SNOMED-CT Code Diagnosis ICD10 Code Diagnosis IMO Codes Diagnosis Note [id number] MIKAL STRAUSS, OSTEOPATHIC NEUROLOGIST-[facility] [id number] 11/21/2023 09:00:55 11/21/2023 10:35:58 Low back pain 972489032 M54.50 Memory impairment 921159 006 R41.3 [id number] Danisha Nguyen APRN [facility] [employer] [place] [id number] 05/20/2024 08:00:10 05/20/2024 09:20:24 Thoracic back pain 566352517 M54.6 Health Concerns Section Related Observation LastModified by Organization [facility] LastModified Time None Recorded Concern Status LastModified by Organization Details LastModified Time None Recorded Advance Directives Directive Y: Payers Insurance Date Sequence Insurance Name Policy Number Policy Valadez Covered Member ID Valadez Member ID Guarantor Name 09/10/2025 1 [place] Valdez E Vice [id number] Valdez Vice 09/01/2025 [place] SOLUTIONS - [place] Valdez E Vice [id number] Valdez Vice 09/07/2025 2 [place] [id number] Valdez E Vice [id number] Valdez Vice Notes Date Note Type Note Provider Name and Address Organization Details Recorded Time 11/21/2023 text/html ROS as noted in the HPI Establish care: Lab work completed at [facility] recently for bronchitis. has concerns about memory changes. Has had increasing periods of forgetfulness. Would like him to be referred to Neurology at . Sees Dr. Alvarenga with cardiology in [place] for pacemaker and general cardiology care. Overall feels well today. Has had periods of back pain, centered below left scapula. No trauma. Intermittent. Has improved with the use of Tylenol. MIKAL STRAUSS, OSTEOPATHIC NEUROLOGIST-[facility] [address] [place], [address], [employer] 11/21/2023 10:35:45 05/20/2024 text/html Patient presents for evaluation of back pain. Thoracic back pain that affects left side of back. States it is a little better than it was but it still hurting. Hurts when he moves around. States nothing seems to make it better or worse. He took a couple of aspirins once and it helped for a little while but then it stopped helping. He does lift a lot. 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 He sees her again in the next month or so. No CP/SOA or DAVE. Danisha Nguyen APRN [address] [place], [address], [employer] 05/20/2024 11:06:49
--- OUTSIDE RECORDS SUMMARY | 2025-09-12 16:01 | XMS_ITS | Encounter Summary ---
Author Organization Healthcare Address [address] [place] [address] Care Team Providers Care Automation Specialist Name Role Phone Danisha Nguyen APRN Primary Care Provider [phone] Encounter Details Date Type Department Care Team (Latest Contact Info) Description 08/27/2025 Travel Social History Tobacco Use Types Packs/Day Years [...] on file documented as of this encounter Plan of Treatment Upcoming Encounters Date Type Department Care Team (Late st Contact Info) Description 12/31/2025 3:00 PM EDT Office Visit [facility] [place] [facility] [address] [place] [id number] Huang Solis MD [address] [place] [address] documented as of this encounter Visit Diagnoses Not on filedocumented in this encounter Additional Health Concerns Assessment Noted Time A fall risk assessment has been complete d for the patient 04/22/2025 2:17 PM EDT A Body Mass Index follow-up plan has been documented for the patient 08/27/2025 2:12 PM EST documented as of this encounter Care Teams Automation Specialist Relationship Specialty Start Date End Date Danisha Nguyen APRN [address] [place] [address] PCP - General 12/4/25 documented as of this encounter
--- OUTSIDE RECORDS SUMMARY | 2025-09-12 16:01 | XMS_ITS | Encounter Summary ---
Author Organization [facility] Address [address] [place] [address] Care Team Providers Care Cashier Receptionist Name Role Phone Danisha Nguyen TR Primary Care Provider [phone] Reason for Visit * Reason Onset Date Comments Med Refill 08/13/2025 Encounter Details Date Type Department Care Team (Late st Contact Info) Description 08/13/2025 Refill [facility] CARDIOLOGY [address] [place] [address] Eliza Sandhu APRN [address] [place] [address] Med Refill Social History Tobacco Use Types Packs/Day Years [...] Description 09/20/2025 1:15 PM EST Office Visit [facility] PRIMARY CARE [address] [place] [address] [place] [address] Huang Valdez MD [address] [place] [address] [place] [id number] 09/29/2025 2:45 PM EST Office Visit [facility] CARDIOLOGY [address] [place] [address] Willow Rodgers APRN [address] [place] [address] 09/29/2025 2:45 PM EST Clinical Support No Requirements [facility] CARDIOLOGY [address] [place] [address] documented as of this encounter Visit Diagnoses Not on filedocumented in this encounter Care Teams Cashier Receptionist Relationship Specialty Start Date End Date Danisha Nguyen, BRANCH LIBRARY CLERK [address] [place] [address] PCP - General Family Medicine 02/05/24 documented as of this encounter
--- OUTSIDE RECORDS SUMMARY | 2025-09-12 16:01 | XMS_ITS | Clinical Summary ---
Author Organization [facility] ([place], [place], [place], [place], [place]) Address [address] [place] [address] Care Team Providers Care Ukrainian Folk Arts Instructor Name Role Phone Cory Finley MD Primary Care Provider [phone] Allergies Active Allergy Reactions Criticality Noted Date Comments Penicillin 07/20/2022 Penicillins 11/24/2012 1per pt to RN pt states that he hasn't taken it for 50 years, but it caused a high temp & high fever Pitavastatin 01/21/2023 Other reaction(s): Muscle spasm, Muscle stiffness 3Info obtained from Dr Pitts' office [place], [place] Pravastatin 01/21/2023 Other reaction(s): muscle weakness, muscle weakness Rosuvastatin 01/21/2023 Other reaction(s): Muscle spasm, Muscle stiffness 2Info obtained from Dr Jonathan burgess [place], [place] Simvastatin 01/21/2023 Other reaction(s): elevated lft s, elevated lft s Tetracycline Nausea And Vomiting 08/15/2022 Medications carvediloL (COREG) 25 MG tablet Take 1 tablet (25 mg total) by mouth 2 (two) times daily with breakfast and dinner. Active Repatha SureClick 140 mg/mL PnIj Inject subcutaneously every 14 (fourteen) days. Active nitroglycerin (NITROSTAT) 0.[address] 1 tablet (0.4 mg total) under the tongue every 5 (five) minutes as needed for Chest pain Put 1 pill under tongue every 5min as needed for chest pain.No more than 3 doses in 15min.Call 911 if pain unrelieved 5min after 1st dose . Active aspirin 81 MG EC tablet Take 1 tablet (81 mg total) by mouth daily. 0 2 Active Active Problems Problem Noted Date Diagnosed Date Pacemaker 01/16/2023 Overview (01/22/2023): Last Assessment & Plan: Remote device check on 12/10/2022 revealed normal device function. Battery life is at 53%, 5.42 years remaining. 1 event noted which was a high atrial rate that lasted only 8 seconds. No other events noted Sleep apnea 01/16/2023 Overview (01/22/2023): ABH 9; intolerant to CPAP/BiPAP Last Assessment & Plan: Intolerant to CPAP/BiPAP therapy. He is not interested in restarting at this time. He denies excessive daytime sleepiness or napping. 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 Encounter for general adult medical examination without abnormal findings 07/20/2022 History of obstructive sleep apnea 07/20/2022 Hyperlipidemia 07/20/2022 Overview (07/20/2022): 1Statin intolerance Hypertension 07/20/2022 Rheumatic fever 07/20/2022 Status post coronary artery bypass graft 022 Stented coronary artery 07/20/2022 Constipation 06/03/2018 Renal calculus 08/09/2015 Family History Medical History Relation Name Comments Arthritis Father Hyperlipidemia Father Hypertension Father Relation Name Status Comments Father Social History Tobacco Use Types Packs/Day Years Used Date Smoking Tobacco: Former Cigarettes 1 20 1 967 - 1986 Passive Smoke Exposure: Past Smokeless Tobacco: Never Tobacco Cessation:Counseling Given: Not Answered Alcohol Use Standard Drinks/Week Comments Not Currently 0 (1 standard drink = 0.6 oz pur e alcohol) Family and Community Support Answer Thang e Recorded Help with Day to Day Activities Not on file 10/11/2023 Feeling Lonely or Isolated Not on file 10/11 Educational Attainment Answer Date Sarath rded Speak language other than Guyanese at home Not on file 10/11/2023 Want help with school or training Not on file 10/11/2023 Substance Use Answer Date Recorded Used prescription meds for non-medical reasons N ot on file 10/11/2023 Used illegal drugs past 12 months Not on file 10/11/2023 Sex and Gender Information Value Date Recorded Sex Assigned at Not on file Legal Sex Male 1:29 PM CDT Gender Identity Not on file Sexual Orientation Not on file Last Filed Vital Signs Vital Sign Reading Time Taken Comments Blood Pressure 165/72 11/19/2023 2:16 PM EST Pulse 76 11/19/2023 2:16 PM EST Temperature 36.1 C (97 F) 11/19/2023 2:16 PM EST Respiratory Rate 16 11/19/2023 2:16 PM EST Oxygen Saturation 100% 11/19/2023 2:16 PM EST Inhaled Oxygen Concentration - - Weight 72.6 kg (160 lb) 11/19/2023 2:16 PM EST Height 167.6 cm (5' 6 ) 11/19/2023 2:16 PM EST Body Mass Index 25.82 11/19/2023 2:16 PM EST Plan of Treatment Health Maintenance Due Date Last Done Comments Medicare Initial AWV G0438 Depression Screening (12+) 1949 DTAP/TDAP/TD VACCINES (1 - Tdap) 1956 Pneumococcal 50+ years (1 of 2 - PCV) 1956 Shingles Vaccine (Zoster) (1 of 2) 1987 Respiratory Syncytial Virus (RSV) Adult or (1 - 1-dose 75+ series) 2012 Falls Risk Screening 09/23/2024 Tobacco Cessation Counseling and Screening (12+) 11/19/2024 11/19/2023 COVID-19 VACCINE ( - 2024- season) 2025 08/11/2021, 12/15/2020, 11/17/2020 Influenza Vaccine (#1) 2025 08/11/2021 Medical Devices Implanted Type Area High School Coordinator Device Identifier Shelf Expiration Date Model / Serial / Lot Pacemakers Pacemakers JONES [id number] / / Description:St Jl [id number]..... RV [id number] Mynx-07/20/2022 Implanted:Qty: 1 on 07/20/2022 by Jorge Torres MD 01/21/2024 / / [id number] Insurance MEDICARE PART A B Advance Directives For more information, please contact: [phone] * Full Code (Latest Code Status on File) Date Activated Date Inactivated Comments 01/24/2023 7:57 AM 01/24/2023 7:02 PM Care Teams Ukrainian Folk Arts Instructor Relationship Specialty Start Date End Date Cory Finley MD [address] [place] [address] PCP - General Family Medicine 01/04/23
--- OUTSIDE RECORDS SUMMARY | 2025-09-12 16:01 | XMS_ITS | Referral Summary ---
Author Organization [facility] ([place], [place], [place], [place], [place]) Address [address] [place] [address] Care Team Providers Care Sorting Grapple Operator Name Role Phone Cory Finley MD Primary Care Provider [phone] Allergies Active Allergy Reactions Criticality Noted Date Comments Penicillin 07/20/2022 Penicillins 11/24/2012 1per pt to RN pt states that he hasn't taken it for 50 years, but it caused a high temp & high fever Pitavastatin 01/21/2023 Other reaction(s): Muscle spasm, Muscle stiffness 3Info obtained from Dr Pitts' office [place], [place] Pravastatin 01/21/2023 Other reaction(s): muscle weakness, muscle weakness Rosuvastatin 01/21/2023 Other reaction(s): Muscle spasm, Muscle stiffness 2Info obtained from Dr Jonathan burgess [place], [place] Simvastatin 01/21/2023 Other reaction(s): elevated lft [...] artery 07/20/2022 Constipation 06/03/2018 Renal calculus 08/09/2015 Social History Tobacco Use Types Packs/Day Years Used Date Smoking Tobacco: Former Cigarettes 1 20 1 967 - 1987 Passive Smoke Exposure: Past Smokeless Tobacco: Never Tobacco Cessation:Counseling Given: Not Answered Alcohol Use Standard Drinks/Week Comments Not Currently 0 (1 standard drink = 0.6 oz pur e alcohol) Family and Community Support Answer Thang e Recorded Help with Day to Day Activities Not on file 10/11/2023 Feeling Lonely or Isolated Not on file 01/19 /2024 Educational Attainment Answer Date Sarath rded Speak language other than Swedish at home Not on file 10/11/2023 Want [...] 11/19/2023 2:16 PM EST Plan of Treatment Not on file Medical Devices Implanted Type Area Loan Consultant Device Identifier Shelf Expiration Date Model / Serial / Lot Pacemakers Pacemakers [id number] / / Description:St Jl [id number]..... RV [id number] Mynx-07/20/2022 Implanted:Qty: 1 on 07/20/2022 by Jorge Torres MD 01/21/2024 / / [id number] Insurance [place] [address] [place] [address] MCR SUPP Advance Directives For more information, please contact: [phone] * Full Code (Latest Code Status on File) Date Activated Date Inactivated Comments 01/24/2023 7:57 AM 01/24/2023 7:02 PM Care Teams Sorting Grapple Operator Relationship Specialty Start Date End Date Cory Finley MD [address] [place] [address] PCP - General Family Medicine 01/04/23
--- OUTSIDE RECORDS SUMMARY | 2025-09-12 16:02 | XMS_ITS | Encounter Summary ---
Author Organization [facility] Address [address] [place] [address] Care Team Providers Care Starter Mechanic Name Role Phone Danisha Nguyen TR Primary Care Provider [phone] Reason for Visit * Reason Onset Date Comments Atrial Fibrillation 08/11/2025 Encounter Details Date Type Department Care Team (Late st Contact Info) Description 08/11/2025 Telephone [facility] CARDIOLOGY [address] [place] [address] Anita Alvarenga MD [address] [place], [place] [id number] Atrial Fibrillation Social History Tobacco Use Types Packs/Day Years [...] on file documented as of this encounter Miscellaneous Notes * Telephone Encounter - Kimberly Flores MA - 08/13/2025 8:20 AM EST Patient stopped in yesterday and got samples/paperwork. * Telephone Encounter - Jennifer Myers RN - 08/11/2025 12:55 PM EST Per remote transmission: Patient remains in afib since 07/26/2025. V-rate is 70 to 90 bpm. Called and spoke to caregiver to inquire on patient. She reports he was started on Eliquis at last office visit. However, he is missing multiple doses of his medication. She counted 6 days of missed dosages when she was at his home last week. She reports the Eliquis is very expensive. It is $114.00 a month on top of him paying $90.00 a month for the prescription coverage itself. She is inquiring if there is a cheaper option. She verbalizes that he is, insurance poor . Due to insurance and copay cost. documented in this encounter Plan of Treatment Upcoming Encounters Date Type Department Care Team (Late st Contact Info) Description 09/20/2025 1:15 PM EST Office Visit [facility] PRIMARY CARE [address] [place] [address] [place] [address] Huang Valdez MD [address] [place] [address] [place] [address] 09/29/2025 2:45 PM EST Office Visit [facility] [address] Willow Rodgers APRN [address] [place] [address] 09/29/2025 2:45 PM EST Clinical Support No Requirements [facility] CARDIOLOGY [address] [place] [address] documented as of this encounter Visit Diagnoses Not on filedocumented in this encounter Care Teams Starter Mechanic Relationship Specialty Start Date End Date Danisha Nguyen APRN [facility] [place], [place] [id number] PCP - General Family Medicine 02/05/24 documented as of this encounter
--- OUTSIDE RECORDS SUMMARY | 2025-09-12 16:02 | XMS_ITS | Encounter Summary ---
Author Organization [employer] ([place], [place], [place], [place], [place]) Address [address] [place] [address] Care Team Providers Care Sheriff'S Sergeant Name Role Phone Dillan Mejias MD Primary Care Provider [phone] Cory Finley MD Primary Care Provider [phone] Encounter Details Date Type Department Care Team (Late st Contact Info) Description 01/09/2019 Transcribed Document [facility] [place] [address] ProviderCitlali MD [address] [place] [address] [id number] Social History Tobacco Use Types Packs/Day Years Used Date Smoking Tobacco: Never Assessed Sex and Gender Information Value Date Recorded Sex Assigned at Not on file Legal Sex Male 1:29 PM CDT Gender Identity Not on file Sexual Orientation Not on file documented as of this encounter Miscellaneous Notes * Cerner Conversion Note - Citlali Bhandari MD - 01/09/2019 4:15 PM CDT Patient: VALDEZ MCGOWAN EAR Age: 83 years Sex: Male : 1935 Associated Diagnoses: Constipation; Dehydration Author: KATIUSKA ORTIZ MD Basic Information Time seen: Date & time 01/09/2019 15:23:00. History source: Patient, spouse. Arrival mode: Private vehicle. History limitation: None. Additional information: Chief Complaint from Nursing Triage Note : Chief Complaint 01/09/2019 15:17 EDT Chief Complaint pt c/o constipation, reports last BM a week ago . History of Present Illness The patient presents with constipation and 83-year-old male patient presents to emergency room complaining of constipation for the last 7 days. He only passed small BMs that day and since then has not had a full bowel movement. He does not feel rectal pressure, has had normal appetite, activity level. He denies abdominal pain, urinary dysuria, frequency, urgency or inability to urinate. He's had no fevers, chills, chest pain, shortness of breath. He's taken a bottle of magnesium citrate this morning without relief and no movement. He's had this happen in the past and took MiraLAX but has not resumed. He had tried a fleets enema yesterday and the day before without relief.. The onset was 7 days ago. The course/duration of symptoms is constant and fluctuating in intensity. Last bowel movement 1 week(s) ago. Character of constipation unable to defecate. The degree at present is moderate. The exacerbating factor is none. The relieving factor is none. Risk factors consist of none. Prior episodes: occasional. Therapy today: laxative(s), enema and over the counter medications. Review of Systems Constitutional symptoms: Negative except as documented in HPI. Skin symptoms: Negative except as documented in HPI. Eye symptoms: Negative except as documented in HPI. ENMT symptoms: Negative except as documented in HPI. Respiratory symptoms: Negative except as documented in HPI. Cardiovascular symptoms: Negative except as documented in HPI. Gastrointestinal symptoms: Negative except as documented in HPI. Genitourinary symptoms: Negative except as documented in HPI. Musculoskeletal symptoms: Negative except as documented in HPI. Neurologic symptoms: Negative except as documented in HPI. Psychiatric symptoms: Negative except as documented in HPI. Additional review of systems information: All other systems reviewed and otherwise negative. Health Status Allergies: Allergic Reactions (Selected) Severity Not Documented Crestor- Muscle spasm and muscle stiffness. Livalo- Muscle stiffness and muscle spasm. Penicillins- No reactions were documented. Pravastatin- Muscle weakness and muscle weakness. Simvastatin- Elevated lft s and elevated lft s. Tetracycline- Nausea and nausea.. Medications: (Selected) Documented Medications Documented MiraLax: 1 Gram, Oral, BID, 0 Refill(s) Plavix 75 mg oral tablet: 1 Tab, Oral, Daily, 0 Refill(s) aspirin: 81 mg, Oral, Daily, 0 Refill(s) carvedilol 12.5 mg oral tablet: 1 Tab, Oral, BID, 60 Tab, 0 Refill(s) nitroglycerin 0.4 mg sublingual spray: 1 [place], SubLINgual, Q5Min, PRN: for chest pain, 5 Gram, 0 Refill(s). Past Medical/ Family/ Social History Surgical history: CABG. Coronary artery stenting. Left inguinal hernia repair. Hydrocele repair.. Family history: Entire family history is negative.. Social history: Social & Psychosocial Habits Alcohol 08/05/2013 Alcohol Use in Last Twelve Months No Home/Environment 08/20/2018 Living situation: Home/Independent Substance Abuse 08/05/2013 Recreational Drug Use History No Recreational Drug Use Last 12 Months No Tobacco 03/08/2016 Smoking Status Former smoker 06/10/2017 Smoking Status Former smoker Years of Tobacco Use 20 Used Tobacco, but Quit Yes Month Tobacco Last Used quit in 1986 . Problem list: Active Problems (17) Angina Arthritis CABG - Coronary artery bypass graft CAD Coronary artery disease Disorder of prostate Diverticulosis History of obstructive sleep apnea HLD HTN Hyperlipidemia Hypertension Impaired vision Renal calculus Renal disease Skin cancer Stented coronary artery . Physical Examination Vital Signs Vital Signs/Vital Measures 01/09/2019 15:17 EDT Temperature Source Oral Temperature Mode Fahrenheit Temperature, Fahrenheit 97.9 Deg F Clinical Temperature, C 36.6 Deg C Peripheral Pulse Rate 70 bpm Respiratory Rate 16 Breaths/Min Systolic Blood Pressure 181 mmHg HI Diastolic Blood Pressure 87 mmHg Oxygen Saturation 96 % Oxygen Therapy Mode Room air . Measurements 01/09/2019 15:17 EDT Height Source Stated Height Entry Format [place] Height/Length, SAO TOMEAN (ft) 5 ft Height/Length SAO TOMEAN 6 Inch CLINICALHEIGHT 167.64 cm [place] Body Weight 62.88 kg Weight Source, ED Standing scale Weight Entry Format [place] Weight Serbian lb 154.2 lb CLINICALWEIGHT 70.09 kg Body Surface Area (BSA) 1.79 m2 Body Mass Index 24.9 kg/m2 HI . Oxygen Saturation 01/09/2019 15:17 EDT Oxygen Saturation 96 % . General: Alert, no acute distress. Skin: Warm, intact, no rash, Not pale, Head: Normocephalic. Neck: Supple, no JVD. Eye: Pupils are equal, round and reactive to light, extraocular movements are intact, Sclera: not icteric. Ears, nose, mouth and throat: Oral mucosa moist. Cardiovascular: Regular rate and rhythm, No murmur, Normal peripheral perfusion, No edema. Respiratory: Lungs are clear to auscultation, respirations are non-labored, breath sounds are equal. Chest wall: No tenderness. Back: Normal range of motion, No costovertebral angle tenderness, Musculoskeletal: Normal ROM. 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 social media & mobile manager Aakash. There was no stool impaction., no mass, no tenderness. Neurological: Alert and oriented to person, place, time, and situation, No focal neurological deficit observed. Lymphatics Psychiatric: Cooperative. Medical Decision Making Differential Diagnosis:: Constipation, obstipation, fecal impaction, bowel obstruction. Rationale: 83-year-old male patient presents to the emergency room the seven-day history of constipation. Laboratory studies were obtained and the patient was given a liter of normal saline IV fluids. The CT scan did not show acute abnormalities and did not even show constipation. In review the results with patient and his she reports he does not drink much water and today he took the magnesium citrate in the morning and really has not drank any water since then. He drinks a lot of iced tea. His laboratory studies did not show acute changes and his urinalysis was normal. I advised the patient he needs to drink more water to maintain hydration and could be the cause of the constipation. He was advised to use a bottle of magnesium citrate, MiraLAX, follow-up with PCP and return with any acutely worsening symptoms.. Documents reviewed: Emergency department nurses' notes. Orders Include Previous Orders (Selected) Inpatient Orders Ordered Saline Lock Insert: Ordered (In-Lab) .Urinalysis Microscopic: Urinalysis w Culture if Indicated: Cancelled (Canceled) NM Cardiac Stress: Completed .Automated Differential: CBC w/ Auto Diff: CMP Comprehensive Metabolic Panel: CT Abdomen Pelvis WO: ED Adult Fall Risk Assessment: ED Adult Triage: ED Clinical Reconciliation: ED humane officer: Lactic Acid Level with Reflex if Indicated: Sodium Chloride 0.9% bolus: 1,000 mL, 1,000 mL/Hr, IV Piggyback, 1-Time. Results review: Lab results : Lab Results 01/09/2019 18:15 EDT Urine Type. U CleanCatch Urine Color Yellow Urine Appearance Clear Urine Specific [place] 1.021 Urine pH Dipstick 5.5 LOW Urine Leukocyte Esterase Negative Urine Nitrite Negative Urine Protein Dipstick Negative Urine Glucose Dipstick Negative Urine Ketones Dipstick 40 Urine Urobilinogen Dipstick 0.2 EU/dL Urine Bilirubin Dipstick Negative Urine Blood Dipstick Negative Ur Mucous 2+ 01/09/2019 16:50 EDT WBC 6.2 K/uL RBC 4.56 Million/uL Hgb 14.1 g/dL Hct 42.7 % MCV 93.6 fL MCH 30.9 pg MCHC 33.0 Gram/dL Platelet Count 203 K/uL MPV 11.6 fL RDW 13.2 % Neut % 69.7 % Neut # 4.29 K/uL Lymph % 14.0 % LOW Lymph # 0.86 x10(3)/uL LOW Butts % 14.8 % HI Butts # 0.91 K/uL Eos % 0.7 % Eos # 0.04 x10(3)/uL Baso % 0.3 % Baso # 0.02 x10(3)/uL Slide Review No IG# 0.03 x10(3)/uL IG% 0.50 % 01/09/2019 15:46 EDT Sodium Level 141 mmol/L Potassium Level 4.4 mmol/L Chloride Level 108 mmol/L Carbon Dioxide Level 24 mmol/L Anion Gap 13 Glucose Level 99 mg/dL Blood Urea Nitrogen 16 mg/dL Creatinine Level 1.00 mg/dL eGFR >60 mL/min/1.73m2 eGFR NonAfrican >60 mL/min/1.73m2 Bun/Creatinine 16.0 Calcium Level 9.2 mg/dL Protein Total 6.7 Gram/dL Albumin Level 3.9 Gram/dL Globulin 2.8 Gram/dL A/G Ratio 1.4 Bilirubin Total 0.6 mg/dL Alk Phos 138 Units/Liter HI AST 23 Units/Liter ALT 34 Units/Liter Lactic Acid Level 1.1 mmol/L . Radiology results: Radiology Results (Last 48 hours) [id number] -- 01/09/2019 15:12 CT Abdomen Pelvis WO (01/09/2019 16:05) Result: CT SCAN OF THE ABDOMEN AND PELVIS WITHOUT CONTRAST 01/09/2019 3:23 PMHISTORY: Abdominal pain, constipation.COMPARISON: July 2018.PROCEDURE: Axial images were obtained from the lung bases to the pubicsymphysis by computed tomography. This study was performed withtechniques to keep radiation doses as low as reasonably achievable,(ALARA). Individualized dose reduction techniques using automatedexposure control or adjustment of mA and/or kV according to the patientsize were employed.FINDINGS: ABDOMEN: The lung bases are clear. The heart size is normal. The limitednon-contrast images of the liver demonstrate fatty infiltration. Thereare gallstones within the gallbladder. The spleen is unremarkable. Noadrenal masses are seen. The aorta is normal in caliber. There is nosignificant free fluid or adenopathy. There is a tiny stone within theleft kidney. There is no hydronephrosis. There is a 77 mm presumedexophytic right renal cyst. There is an umbilical hernia containingomental fat.PELVIS: There is diverticulosis of the left and sigmoid colon. Theappendix is remarkable for an appendicolith in the proximal portion. Theappendix is otherwise unremarkable. The urinary bladder is unremarkable.There is no fluid or adenopathy. IMPRESSION: Left nephrolithiasis, no hydronephrosis.Cholelithiasis.Presumed right renal cyst.There is diverticulosis with no evidence of diverticulitis. Images reviewed, interpreted, and dictated by Dr. Kwadwo Rodriges.Transcribed by Suni Garrison (R).I have personally viewed, interpreted and dictated the examination. Ihave read and agree with the above final transcribed report. . Impression and Plan Diagnosis Constipation - Discharge, Emergency medicine, Medical Dehydration - Discharge, Emergency medicine, Medical Plan Condition: Stable. Disposition: Discharged Admit/Transfer/Discharge: Discharge (Order): Start: 01/09/2019 18:58 EDT, Discharge to: Home. Patient was given the following educational materials: Dehydration, Adult, Constipation, Adult. Follow up with: Patient Resource Center Within 2 to 3 days Please contact the Patient Resource Center at if you need assistance finding a Primary Care Provider in the future. ; DILLAN MEJIAS Within 2 to 3 days Call for follow up appointment with your doctor. It is important you drink more water. Use a bottle of magnesium citrate tonight, repeat in a couple of days if no improvement. Make sure you hydrate using these medications. Use MiraLAX. Follow-up with PCP and return with any acutely worsening symptoms.. Counseled: Patient, Family, Regarding diagnosis, Regarding diagnostic results, Regarding treatment plan, Patient indicated understanding of instructions. Electronically signed by [facility], [facility] Conversion Linux Engineer Cerner at 01/08/2023 3:12 PM CDT documented in this encounter Plan of Treatment Not on file documented as of this encounter Visit Diagnoses Not on filedocumented in this encounter Care Teams Sheriff'S Sergeant Relationship Specialty Start Date End Date Dillan Mejias MD [address] [place] [facility] [address] [place] [address] PCP - General Adolescent Medicine 07/20/22 01/03/23 Cory Finley MD [address] [place] [address] [address] [place] [address] PCP - General Family Medicine 01/04/23 documented as of this encounter
--- OUTSIDE RECORDS SUMMARY | 2025-09-12 16:02 | XMS_ITS | Encounter Summary ---
Author Organization [employer] ([place], [place], [place], [place], [place]) Address [address] [place] [address] Care Team Providers Care Press Feeder Name Role Phone Dillan Donnelly MD Primary Care Provider [phone] Cory Finley MD Primary Care Provider [phone] Encounter Details Date Type Department Care Team (Late st Contact Info) Description 01/09/2019 Transcribed Document [facility] [place] [facility] [place] [address] ProviderCitlali MD [address] [place] [address] [id number] Social History Tobacco Use Types Packs/Day Years Used Date Smoking Tobacco: Never Assessed Sex and Gender Information Value Date Recorded Sex Assigned at Not on file Legal Sex Male 1:29 PM CDT Gender Identity Not on file Sexual Orientation Not on file documented as of this encounter Miscellaneous Notes * Cerner Conversion Note - Citlali Bhandari MD - 01/09/2019 7:46 PM CDT ED Discharge Entered On: 01/09/2019 19:46 EDT Performed On: 01/09/2019 19:46 EDT by Yair Hopson Rn-Resource Discharge Process Patient Disposition : Discharge Personal Belongings With Patient : Yes Patient Education Completed : Yes Teaching Evaluation : Verbalizes understanding IV Discontinued : Yes Nursing Documentation Completed : Yes Yair Hopson Rn-Resource - 01/09/2019 19:46 EDT ED Discharge Discharge To : Home without planned follow-up Mode Of Departure : Ambulatory Accompanied By : Spouse Discharge Instructions Reviewed With, Opportunity For Questions Given : Patient, Spouse Prescriptions Given to Patient : Yair Love Rn-Resource - 01/09/2019 19:46 EDT Electronically signed by Ivette [facility] Conversion Water Commissioner Cerner at 01/08/2023 3:20 PM CDT documented in this encounter Plan of Treatment Not on file documented as of this encounter Visit Diagnoses Not on filedocumented in this encounter Care Teams Press Feeder Relationship Specialty Start Date End Date Dillan Donnelly MD [address] [place] [address] [place] [address] PCP - General Adolescent Medicine 07/20/22 01/03/23 Cory Finley MD [address] [place] [address] [address] [place] [address] PCP - General Family Medicine 01/04/23 documented as of this encounter
--- OUTSIDE RECORDS SUMMARY | 2025-09-12 16:02 | XMS_ITS | Encounter Summary ---
Author Organization [employer] ([place], [place], [place], [place], [place]) Address [address] [place] [address] Care Team Providers Care Rental Boats Caretaker Name Role Phone Dillan Donnelly MD Primary Care Provider [phone] Cory Finley MD Primary Care Provider [phone] Encounter Details Date Type Department Care Team (Late st Contact Info) Description 01/13/2019 Transcribed Document [facility] [place] [facility] [place] [address] ProviderCitlali MD [address] [place] [address] Social History Tobacco Use Types Packs/Day Years Used Date Smoking Tobacco: Never Assessed Sex and Gender Information Value Date Recorded Sex Assigned at Not on file Legal Sex Male 1:29 PM CDT Gender Identity Not on file Sexual Orientation Not on file documented as of this encounter Miscellaneous Notes * Jess Conversion Note - Citlali ProviderMD - 01/13/2019 1:11 PM CDT Electronically signed by Ivette [facility] Conversion Chronic Disease Epidemiologist Jess at 01/08/2023 3:06 PM CDT documented in this encounter Plan of Treatment Not on file documented as of this encounter Visit Diagnoses Not on filedocumented in this encounter Care Teams Rental Boats Caretaker Relationship Specialty Start Date End Date Dillan Donnelly MD [address] [place] [address] [place] [address] PCP - General Adolescent Medicine 07/20/22 01/03/23 Cory Finley MD [address] [place] [address] PCP - General Family Medicine 01/04/23 documented as of this encounter
--- OUTSIDE RECORDS SUMMARY | 2025-09-12 16:02 | XMS_ITS | Encounter Summary ---
Author Organization [employer] ([place], [place], [place], [place], [place]) Address [address] [place] [address] Care Team Providers Care Accounts Receivable Supervisor Name Role Phone Dillan Donnelly MD Primary Care Provider [phone] Cory Finley MD Primary Care Provider [phone] Encounter Details Date Type Department Care Team (Late st Contact Info) Description 01/09/2019 Transcribed Document [facility] [place] [address] ProviderCitlali MD [address] [place] [address] Social History Tobacco Use Types Packs/Day Years Used Date Smoking Tobacco: Never Assessed Sex and Gender Information Value Date Recorded Sex Assigned at Not on file Legal Sex Male 1:29 PM CDT Gender Identity Not on file Sexual Orientation Not on file documented as of this encounter Miscellaneous Notes * Cerner Conversion Note - Citlali ProviderMD - 01/09/2019 3:12 PM CDT ED Triage Entered On: 01/09/2019 15:20 EDT Performed On: 01/09/2019 15:17 EDT by Rebecca Mackey Rn-Flex Team ED Triage Across the Room Triage Date/Time : 01/09/2019 15:17 EDT Chief Complaint : pt c/o constipation, reports last BM a week ago Rebecca Mackey Rn-Flex Team - 01/09/2019 15:17 EDT DCP GENERIC CODE Tracking Acuity : 3 - Urgent Tracking Group : [facility] ED Rebecca Mackey Rn-Flex Team - 01/09/2019 15:17 EDT Mode of Arrival : Ambulatory Transported to ED by : Private vehicle To Room Via : Ambulate Accompanied By : Spouse ED Vital Signs : Document Height & Weight : Document ED Allergies : Document ED Reason for Visit : Document Tetanus Immunization : Less than 5 years Rebecca Mackey Rn-Flex Team - 01/09/2019 15:17 EDT Infectious Disease History Infectious Disease History : Influenza, Measles, Mumps, Other: rehumatic fever Fever/Chills Last 48 Hours : No Travel To Regions with Travel Advisories : No Travel Outside [place] Within Last 30 Days : No Contact With Traveler to Advisory Region : No Tuberculosis Symptoms : None Rebecca Mackey Rn-Flex Team - 01/09/2019 15:17 EDT Vital Signs ED Temperature Source : Oral Temperature Mode : Fahrenheit Temperature, Fahrenheit : 97.9 Deg F ED Pain : No Clinical Temperature, C : 36.6 Deg C Oxygen Therapy Mode : Room air Peripheral Pulse Rate : 70 bpm Respiratory Rate : 16 Breaths/Min Systolic Blood Pressure : 181 mmHg (HI) Diastolic Blood Pressure : 87 mmHg Oxygen Saturation : 96 % Rebecca Mackey Rn-Flex Team - 01/09/2019 15:17 EDT Allergy (As Of: 01/09/2019 15:20:48 EDT) Allergies (Active) Crestor Estimated Onset Date: Unspecified ; Reactions: Muscle spasm, Muscle stiffness ; Comments: Comment 1: Info obtained from Dr Jonathan burgess [place], [place] ; Created By: ZAHRA ORTEZ RPh; Reaction Status: Active ; Category: Drug ; Substance: Crestor ; Type: Allergy ; Updated By: ZAHRA ORTEZ RPh; Source: Nurse ; Reviewed Date: 01/09/2019 15:17 EDT Livalo Estimated Onset Date: Unspecified ; Reactions: Muscle stiffness, Muscle spasm ; Comments: Comment 1: Info obtained from Dr Jonathan burgess [place], [place] ; Created By: ZAHRA ORTEZ RPh; Reaction Status: Active ; Category: Drug ; Substance: Livalo ; Type: Allergy ; Updated By: ZAHRA ORTEZ RPh; Source: Nurse ; Reviewed Date: 01/09/2019 15:17 EDT penicillins Estimated Onset Date: Unspecified ; Comments: Comment 1: per pt to RN pt states that he hasn't taken it for 50 years, but it caused a high temp & high fever ; Created By: DERIAN Nova; Reaction Status: Active ; Category: Drug ; Substance: penicillins ; Type: Allergy ; Updated By: DERIAN Nova; Reviewed Date: 01/09/2019 15:17 EDT pravastatin Estimated Onset Date: Unspecified ; Reactions: muscle weakness, muscle weakness ; Created By: DERIAN Nova; Reaction Status: Active ; Category: Drug ; Substance: pravastatin ; Type: Allergy ; Updated By: DERIAN Nova; Reviewed Date: 01/09/2019 15:17 EDT simvastatin Estimated Onset Date: Unspecified ; Reactions: elevated lft s, elevated lft s ; Created By: DERIAN Nova; Reaction Status: Active ; Category: Drug ; Substance: simvastatin ; Type: Allergy ; Updated By: DERIAN Nova; Reviewed Date: 01/09/2019 15:17 EDT tetracycline Estimated Onset Date: Unspecified ; Reactions: nausea, nausea ; Created By: DERIAN Nova; Reaction Status: Active ; Category: Drug ; Substance: tetracycline ; Type: Allergy ; Updated By: DERIAN Nova; Reviewed Date: 01/09/2019 15:17 EDT Diagnosis Control ED (As Of: 01/09/2019 15:20:48 EDT) Problems(Active) Angina (SNOMED CT :948719641 ) Name of Problem: Angina ; Recorder: HARI INFANTE RN; Confirmation: Confirmed ; Classification: Patient Stated ; Code: [id number] ; Contributor System: StudyEgg ; Last Updated: 03/09/2014 10:52 EDT ; Life Cycle Date: 08/07/2013 ; Life Cycle Status: Active ; Vocabulary: SNOMED CT Arthritis (SNOMED CT :8751146 ) Name of Problem: Arthritis ; Recorder: HARI INFANTE RN; Confirmation: Confirmed ; Classification: Patient Stated ; Code: 9136315 ; Contributor System: AppsemblerChart ; Last Updated: 03/04/2014 19:31 EDT ; Life Cycle Date: 08/07/2013 ; Life Cycle Status: Active ; Vocabulary: SNOMED CT CABG - Coronary artery bypass graft (SNOMED CT :203258728 ) Name of Problem: CABG - Coronary artery bypass graft ; Recorder: HARI INFANTE RN; Confirmation: Confirmed ; Classification: Patient Stated ; Code: 625653413 ; Contributor System: AppsemblerChart ; Last Updated: 03/09/2014 11:29 EDT ; Life Cycle Date: 08/07/2013 ; Life Cycle Status: Active ; Vocabulary: SNOMED CT CAD (SNOMED CT :27943100 ) Name of Problem: CAD ; Recorder: NANCY NUNES RN; Confirmation: Confirmed ; Classification: Medical ; Code: 07681174 ; Contributor System: PowerChart ; Last Updated: 06/27/2018 14:14 EDT ; Life Cycle Date: 04/21/2018 ; Life Cycle Status: Active ; Vocabulary: SNOMED CT Coronary artery disease (SNOMED CT :8817007575 ) Name of Problem: Coronary artery disease ; Recorder: HARI INFANTE RN; Confirmation: Confirmed ; Classification: Patient Stated ; Code: 2405438323 ; Contributor System: PowerChart ; Last Updated: 03/04/2014 19:31 EDT ; Life Cycle Date: 08/07/2013 ; Life Cycle Status: Active ; Vocabulary: SNOMED CT Disorder of prostate (SNOMED CT :37974450 ) Name of Problem: Disorder of prostate ; Recorder: HARI INFANTE RN; Confirmation: Confirmed ; Classification: Patient Stated ; Code: 70435171 ; Contributor System: AppsemblerChart ; Last Updated: 03/04/2014 19:31 EDT ; Life Cycle Date: 08/07/2013 ; Life Cycle Status: Active ; Vocabulary: SNOMED CT Diverticulosis (SNOMED CT :5376005498 ) Name of Problem: Diverticulosis ; Recorder: GODWIN BRENNAN RN; Confirmation: Confirmed ; Classification: Medical ; Code: 5737693385 ; Contributor System: PowerChart ; Last Updated: 03/08/2016 12:23 EDT ; Life Cycle Date: 03/08/2016 ; Life Cycle Status: Active ; Vocabulary: SNOMED CT History of obstructive sleep apnea (IMO :30966582 ) Name of Problem: History of obstructive sleep apnea ; Recorder: SYSTEM, SYSTEM; Confirmation: Confirmed ; Classification: Medical ; Code: 00389077 ; Last Updated: 04/20/2018 23:59 EDT ; Life Cycle Date: 04/20/2018 ; Life Cycle Status: Active ; Vocabulary: IMO HLD (SNOMED CT :13664803 ) Name of Problem: HLD ; Recorder: NANCY NUNES RN; Confirmation: Confirmed ; Classification: Medical ; Code: 86438291 ; Contributor System: PowerChart ; Last Updated: 05/30/2018 12:56 EDT ; Life Cycle Date: 04/21/2018 ; Life Cycle Status: Active ; Vocabulary: SNOMED CT ; Comments: 04/21/2018 8:36 - NANCY NUNES RN Statin intolerance HTN (SNOMED CT :8872688125 ) Name of Problem: HTN ; Recorder: NANCY NUNES RN; Confirmation: Confirmed ; Classification: Medical ; Code: 2450239191 ; Contributor System: PowerChart ; Last Updated: 05/30/2018 12:58 EDT ; Life Cycle Date: 04/21/2018 ; Life Cycle Status: Active ; Vocabulary: SNOMED CT Hyperlipidemia (SNOMED CT :72668800 ) Name of Problem: Hyperlipidemia ; Recorder: HARI INFANTE RN; Confirmation: Confirmed ; Classification: Patient Stated ; Code: 98592314 ; Contributor System: PowerChart ; Last Updated: 03/04/2014 19:31 EDT ; Life Cycle Date: 08/07/2013 ; Life Cycle Status: Active ; Vocabulary: SNOMED CT Hypertension (SNOMED CT :34727948 ) Name of Problem: Hypertension ; Recorder: HARI INFANTE RN; Confirmation: Confirmed ; Classification: Patient Stated ; Code: 15828330 ; Contributor System: PowerChart ; Last Updated: 03/04/2014 19:31 EDT ; Life Cycle Date: 08/07/2013 ; Life Cycle Status: Active ; Vocabulary: SNOMED CT Impaired vision (SNOMED CT :04179541 ) Name of Problem: Impaired vision ; Recorder: HARI INFANTE RN; Confirmation: Confirmed ; Classification: Patient Stated ; Code: 93915455 ; Contributor System: PowerChart ; Last Updated: 03/04/2014 19:31 EDT ; Life Cycle Date: 08/07/2013 ; Life Cycle Status: Active ; Vocabulary: SNOMED CT Renal calculus (SNOMED CT :681425503 ) Name of Problem: Renal calculus ; Recorder: HARI INFANTE RN; Confirmation: Confirmed ; Classification: Patient Stated ; Code: 054103018 ; Contributor System: PowerChart ; Last Updated: 03/04/2014 19:31 EDT ; Life Cycle Date: 08/07/2013 ; Life Cycle Status: Active ; Vocabulary: SNOMED CT Renal disease (SNOMED CT :272699766 ) Name of Problem: Renal disease ; Recorder: HARI INFANTE RN; Confirmation: Confirmed ; Classification: Patient Stated ; Code: 537193576 ; Contributor System: AppsemblerChart ; Last Updated: 03/04/2014 19:31 EDT ; Life Cycle Date: 08/07/2013 ; Life Cycle Status: Active ; Vocabulary: SNOMED CT Skin cancer (SNOMED CT :1103479009 ) Name of Problem: Skin cancer ; Recorder: HARI INFANTE RN; Confirmation: Confirmed ; Classification: Patient Stated ; Code: 0598196939 ; Contributor System: AppsemblerChart ; Last Updated: 03/04/2014 19:31 EDT ; Life Cycle Date: 08/07/2013 ; Life Cycle Status: Active ; Vocabulary: SNOMED CT Stented coronary artery (SNOMED CT :9719350041 ) Name of Problem: Stented coronary artery ; Recorder: HARI INFANTE RN; Confirmation: Confirmed ; Classification: Patient Stated ; Code: 5470505512 ; Contributor System: StudyEgg ; Last Updated: 03/04/2014 19:31 EDT ; Life Cycle Date: 08/07/2013 ; Life Cycle Status: Active ; Vocabulary: SNOMED CT Diagnoses(Active) Constipation Date: 01/09/2019 ; Diagnosis Type: Reason For Visit ; Confirmation: Complaint of ; Clinical Dx: Constipation ; Classification: Medical ; Clinical Service: Non-Specified ; Code: PNED ; Probability: 0 ; Diagnosis Code: [id number] ED Height and Weight Height Source : Stated Height Entry Format : Clark Height, Feet : 5 ft(Converted to: 152 cm, 60 Inch) Height, Inches : 6 Inch(Converted to: 0 ft 6 Inch, 15.24 cm) Clinical Height : 167.64 cm Weight Source, ED : Standing scale Weight Entry Format : Clark Weight, Pounds : 154.2 lb Clinical Dosing Weight : 70.09 kg Body Surface Area (BSA) : 1.79 m2 Body Mass Index : 24.9 kg/m2 (HI) [place] Body Weight (IBW) : 62.88 kg Rebecca Mackey Rn-Flex Team - 01/09/2019 15:17 EDT Electronically signed by Ivette, [facility] Conversion Radial Drill Press Operator Cerner at 01/08/2023 3:25 PM CDT documented in this encounter Plan of Treatment Not on file documented as of this encounter Visit Diagnoses Not on filedocumented in this encounter Care Teams Accounts Receivable Supervisor Relationship Specialty Start Date End Date Dillan Donnelly MD [address] [place] [address] [place] [id number] PCP - General Adolescent Medicine 07/20/22 01/03/23 Cory Finley MD [address] [place] [address] [address] [place] [address] PCP - General Family Medicine 01/04/23 documented as of this encounter
--- OUTSIDE RECORDS SUMMARY | 2025-09-12 16:02 | XMS_ITS | Clinical Summary ---
Author Organization Healthcare Address [address] [place] [address] Care Team Providers Care Slip Cover Operator Name Role Phone Danisha Nguyen APRN Primary Care Provider [phone] Allergies Active Allergy Reactions Criticality Noted Date Comments Colesevelam Rash Low 01/16/2023 Niacin Rash Low 01/16/2023 Penicillins Rash Low 11/24/2012 1per pt to RN pt states that he hasn't taken it for 50 years, but it caused a high temp & high fever Pitavastatin Rash Low 01/16/2023 Other reaction(s): Muscle spasm, Muscle stiffness 3Info obtained from Dr Pitts' office [place], [place] Tetracycline Nausea,Nausea And Vomiting Low 08/15/2022 Medications aspirin 81 MG EC tablet Take 1 tablet by mouth. Active carvedilol (Coreg) 25 MG tablet Take 1 tablet by mouth 2 times a day. Active Repatha SureClick 140 MG/ML solution auto-injector autoinjector Inject 140 mg every 2 weeks by sub-q route for 28 days. 5 Active nitroglycerin (Nitrostat) 0.[address] 1 tablet under the tongue. Active Evolocumab with Infusor (Repatha Pushtronex System) 420 MG/3.5ML solution cartridge A ctive pantoprazole (Protonix) 40 MG EC tablet Take 1 tablet by mouth daily. 5 026 Active apixaban (Eliquis) 5 MG tablet Take 1 tablet by mouth twice a day. 5 Active tamsulosin (Flomax) 0.4 MG 24 hr capsule TAKE 1 CAPSULE EVERY EVENING Active donepezil (Aricept) 10 MG tabletIndications: Major neurocognitive disorder (CMS/HCC),Late onset Alzheimer's disease without behavioral disturbance (CMS/HCC) Take 1 tablet by mouth nightly. Take one half tablet for one month, then take one tablet daily 90 tablet 3 5 026 Active donepezil (Aricept) 5 MG tablet TAKE ONE TABLET BY MOUTH EVERY DAY FOR memory loss 5 025 Discontinu ed(Dose adjustment ) sucralfate (Carafate) 1 g tablet Take 1 tablet by mouth. 5 025 Active Problems No known active problems Encounters Date Type Department Care Team Description 08/27/2025 1:30 PM EST [facility] [place] [facility] [address] [place] [phone] Huang Solis MD Major neurocognitive disorder (CMS/HCC) (Primary Dx); Late onset Alzheimer's disease without behavioral disturbance (CMS/HCC) 08/27/2025 Travel 06/15/2025 2:08 PM EDT - 06/15/2025 11:59 PM EDT Hospital Encounter [facility] [address] , [place] [address] Discharge Disposition: Home or Self Care 06/15/2025 2:04 PM EDT - 06/15/2025 2:07 PM EDT Hospital Encounter [facility] [address], [place] [address] Major neurocognitive disorder (CMS/HCC) Discharge Disposition: Home or Self Care 06/15/2025 Travel from Last 3 Months Social History Tobacco Use Types Packs/Day Years Used Date Smoking Tobacco: Former Cigarettes Smokeless Tobacco: Never Tobacco Cessation:Counseling Given: Not [...] Mass Index 23.63 08/27/2025 1:33 PM EST Plan of Treatment Upcoming Encounters Date Type Department Care Team (Late st Contact Info) Description 12/31/2025 3:00 PM EDT Office Visit [facility] [place] [facility] [address] [place] [address] Huang Solis MD [address] [place] [address] Health Maintenance Due Date Last Done Comments [facility]-Depression Screening 1937 [facility]-Medicare Annual Wellness (AWV) 1937 [facility]-/Child/Adol SDOH Screenings 1937 [facility]- SDOH Screenings 1955 [facility]-Adult SDOH Screenings 1955 [facility]-DTaP,Tdap,and Td Vaccines (1 - Tdap) 1956 [facility]-Pneumococcal Vaccine: 50+ Years (1 of 1 - PCV) 1987 [facility]-Zoster Vaccines (1 of 2) 1987 [facility]-RSV Vaccine: 60+ Years or (1 - 1-dose 75+ series) 2012 [id number] Vaccine (4 - season) 2025 08/11/2021, 12/15/2020, 11/17/2020 [facility]-Influenza Vaccine (#1) 2025 08/11/2021 HPV Vaccines (No Doses Required) Completed [facility]-HIB Vaccines Aged Out No longer e ligible based on patient's age to complete this topic [facility]-Hepatitis A Vaccines Aged Out No longer eligible based on patient's age to complete this topic [facility]-IPV Vaccines Aged Out No longer e ligible based on patient's age to complete this topic [facility]-Rotavirus Vaccines Aged Out No lo nger eligible based on patient's age to complete this topic Procedures Procedure Name Priority Date/Time Associated Diagnosis Comments PET/CT AMYLOID BRAIN Routine 06/15/2025 3:49 PM EDT Major neurocognitive disorder (CMS/HCC) from Last 3 Months Results * PET/CT Amyloid Brain (06/15/2025 3:49 PM EDT) Anatomical Region Laterality Modality Positron Emissio n Tomography (PET) Impressions 06/15/2025 5:22 PM EDT F-18 Amyvid scan demonstrates: 1. 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 2. Centiloid Scores > 26 suggest at least moderate amyloid burden. CRITICAL RESULT: No. COMMUNICATION: Per this written report. Drafted by Mina Byrd MD on 06/15/2025 5:15 PM Final report signed by Mina Byrd MD on 06/15/2025 5:22 PM Narrative 06/15/2025 5:22 PM EDT CLINICAL INDICATION: 89 [id number] Male diagnosed with major cognitive impairment, presenting for assessment of Alzheimer's disease. cannot get MR due to pacemaker. TECHNIQUE: Radiopharmaceutical: 8.9 mCi of F-18 (florbetapir) (Amyvid) administered intravenously at right hand at 1436. Incubation interval: 43 minutes. Positioning: Supine, arms by sides. PET/CT scanner: Siemens Biograph 40 mCT. PET/CT acquisition: Head (Brain). PET reconstruction method: Point Spread Function-Time of Flight (PSF-TOF), 4 iterations, 21 subsets, with and without CT-based attenuation correction. CT: Low-dose, [id number], without intravenous contrast. TOTAL DLP (Dose Length Product): 697.87 mGy.cm. Advanced quantitative analysis and both regional and global SUV ratios (SUVr) were reviewed as well as the Global Centiloid Score. COMPARISON/CORRELATION: No comparison. No recent correlative imaging. FINDINGS: Technical quality: Diagnostic. Interpretation: without knowledge of clinical information as directed in the F- 18 (florbetapir) (Amyvid) instructions. Cerebellar uptake: Slightly asymmetrical. Cerebral uptake: Slightly asymmetrical, left more than right. Mildly increased cerebral cortical uptake with loss of dillard/white matter differentiation involving temporal and parietal, with prominent involvement of the precuneus and posterior cingulate.. Global SUVr: 1.27 Centiloid score: 44.8 CT findings: No evidence of acute hemorrhage or ischemia. Mild cerebral atrophy. Mild periventricular supratentorial white matter low attenuation alterations, likely sequela of small vessel ischemic disease. No mass, mass effect, or midline displacement of structures. Normal ventricular size and configuration for age. Clear paranasal sinuses and mastoid air-cells. Procedure Note Mina Palomares MD - 06/15/2025 CLINICAL INDICATION: 89 [id number] Male diagnosed with major cognitive impairment,presenting for assessment of Alzheimer's disease. cannot get MR due topacemaker. TECHNIQUE: Radiopharmaceutical: 8.9 mCi of F-18 (florbetapir) (Amyvid) administeredintravenously at right hand at 1436. Incubation interval: 43 minutes. Positioning: Supine, arms by sides. PET/CT scanner: Siemens Biograph 40 mCT. PET/CT acquisition: Head (Brain). PET reconstruction method: Point Spread Function-Time of Flight (PSF-TOF),4 iterations, 21 subsets, with and without CT-based attenuationcorrection. CT: Low-dose, [id number]-[id number], without intravenous contrast. TOTAL DLP (Dose Length Product): 697.87 mGy.cm. Advanced quantitative analysis and both regional and global SUV ratios(SUVr) were reviewed as well as the Global Centiloid Score. COMPARISON/CORRELATION: No comparison. No recent correlative imaging. FINDINGS: Technical quality: Diagnostic. Interpretation: without knowledge of clinical information as directed inthe F-18 (florbetapir) (Amyvid) instructions. Cerebellar uptake: Slightly asymmetrical. Cerebral uptake: Slightly asymmetrical, left more than right. Mildly increased cerebral cortical uptake with loss of dillard/white matterdifferentiation involving temporal and parietal, with prominentinvolvement of the precuneus and posterior cingulate.. Global SUVr: 1.27 Centiloid score: 44.8 CT findings: No evidence of acute hemorrhage or ischemia. Mild cerebral atrophy. Mild periventricular supratentorial white matter low attenuationalterations, likely sequela of small vessel ischemic disease. No mass, mass effect, or midline displacement of structures. Normal ventricular size and configuration for age. Clear paranasal sinuses and mastoid air-cells. 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 2.Centiloid Scores > 26 suggest at least moderate amyloid burden. CRITICAL RESULT: No. COMMUNICATION: Per this written report. Drafted by Mina Byrd MD on 06/15/2025 5:15 PM Final report signed by Mina Byrd MD on 06/15/2025 5:22 PM Huang Solis MD IMG NM PROCEDURES Final Result from Last 3 Months [place] [address] [facility] Care Teams Slip Cover Operator Relationship Specialty Start Date End Date Danisha Nguyen APRN [address] [id number] PCP - General 08/26/25
--- OUTSIDE RECORDS SUMMARY | 2025-09-12 16:02 | XMS_ITS | Data Portability ---
Author Organization MANDI JENNY Diaz [place] [facility] Address [address] [place] [address] Care Team Providers Care Crown Ceramist Name Role Phone LUKE BUSTOS Primary Care Provider Assessment Encounter Date Assessment Date Assessment LastModified by Organization Details LastModified Time 03/11/2023 03/11/2023 Medical management of lower urinary symptoms with alfuzosin. We will reinitiate the medication and patient will follow-up later this week for voiding trial. [email or web address] Not available 03/17/2023 19:37:41 03/13/2023 03/13/2023 Catheter removed in office today. Medical management lower urinary symptoms with alfuzosin. [email or web address] Not available 03/17/2023 12:54:41 07/10/2023 07/10/2023 87-year-old white male with a history of urolithiasis, elevated PSA, hydrocele, BPH, urinary retention, and erectile dysfunction. He underwent ESWL and ureteroscopic stone extraction in 2004. He had negative prostate biopsies in 2008, 2012, in 2012, volume 54 mL. He underwent hydrocele repair in 2012. He started an alpha-jean carlos in 2020. He has used oral ED medications and Trimix. He had urinary retention and associated with shingles 02/2023. He is currently on tamsulosin and voiding well. The bladder scan residual is mild. The prostate exam is moderately enlarged and firm. He would like a screening PSA. We discussed a KUB but he declines. Plan: Continue tamsulosin. Check PSA. Follow-up in 1 year. [email or web address] Not available 07/10/2023 17:24:47 07/22/2023 07/22/2023 F/up 6 months FSE, discussed if unremarkable exam at that visit will do yearly f/up Not available 07/22/2023 15:14:04 08/19/2024 08/19/2024 [email or web address] year-old white male with a history of urolithiasis, elevated PSA, hydrocele, BPH, urinary retention, and erectile dysfunction. He underwent ESWL and ureteroscopic stone extraction in 2004. He had negative prostate biopsies in 2008, 2011, in 2012, volume 54 mL. He underwent hydrocele repair in 2012. He started an alpha-jean carlos in 2020. He has used oral ED medications and Trimix. He had urinary retention associated with shingles in 2022. He is voiding well on tamsulosin. Scan residual is moderate. The prostate exam is stable. He would like screening PSA and yearly follow-up. Plan: Continue tamsulosin. Check PSA. Follow-up in 1 year. [email or web address] Not available 08/19/2024 17:32:50 Plan of Treatment Reminders Order Date Submit Date Provider Last Modified By Organization Details Last Modified Time Details Appointments None recorded. Lab urinalysis panel, auto 2023 024 [facility]/ [address], [address], [place], [address], 4 16:31:13 PSA, serum or plasma 2023 024 [facility]/ [address], [address], [place], [address], 4 07:26:32 urinalysis, dipstick 2022 023 [email or web address] Not available 3 16:06:32 PSA, total, serum or plasma 2022 023 [facility], [address] [place] [address], [address], 3 17:47:10 Referral None recorded. Procedures None recorded. Surgeries None recorded. Imaging None recorded. Medication Orders tamsulosin 0.4 mg capsule 2022 023 EYAD [facility], [address] [place], [address], 16:08:52 alfuzosin ER 10 mg tablet,exte nded release 24 hr 2022 023 dwight [facility], [address] [place], [address], 16:07:24 Patient TargetsNo targets recorded. Patient Instructions Encounter Date Encounter Id Patient Instructions Last Modified By Organization Details Last Modified Time 03/13/2023 [id number] learning about healthy weight Not available 03/17/2023 12:54:41 07/22/2023 [id number] Education/alt/ri s ks/benefits/SE of Dx & Tx discussed. Daily UV protection with broad-spectrum SPF 30+ on exposed areas recommended. Pt encouraged to RTC with any new/changing lesions. Not available 04/17/2023 11:02:24 Reason for Referral None Reported. Results Created Date Observation Date Name Description Value Unit Range Abnormal Flag Note LastModifiedBy Organization Detail LastModifiedTime 07/10/2007/10/2023 PROST ATE SPECI FIC AG prostate specific Ag 6.240 NG/mL 0.000- 4.400 high Test metho d is based on WHO-s tanda rdize d calib ratio n using the Yesenia Darci E801 bernabe zer. PSA resul ts by diffe rent test proce dures canno t be direc tly dottie red with one anoth er. . Not Available [facility] [address] [place], [address], 07/10/2023 17:47:10 07/10/2007/10/2023 urina lysis , dipst ick Unknown Analyte Straw Not Available [facility] [address] [place], [address], 07/10/2023 15:07:15 07/10/2007/10/2023 urina lysis , dipst ick Unknown Analyte Clear Not Available [facility] [address] [place], [address], 07/10/2023 15:07:15 07/10/2007/10/2023 urina lysis , dipst ick Unknown Analyte 1.010 Not Available [facility] [address] [place] [address], [address], 07/10/2023 15:07:15 07/10/2007/10/2023 urina lysis , dipst ick Unknown Analyte 1.003 - 1.035 Not Available [facility] [address] [place] [address], [address], 07/10/2023 15:07:15 07/10/2007/10/2023 urina lysis , dipst ick Unknown Analyte 5.0 Not Available [facility] [address] [place] [address], [address], 07/10/2023 15:07:15 07/10/2007/10/2023 urina lysis , dipst ick Unknown Analyte 5.0 - 8.0 Not Available [facility] [address] [place] [address], [address], 07/10/2023 15:07:15 07/10/2007/10/2023 urina lysis , dipst ick Unknown Analyte Negati ve Not Available [facility] [address], [address], 07/10/2023 15:07:15 07/10/2007/10/2023 urina lysis , dipst ick Unknown Analyte Negati ve Not Available [facility] [address] [place] [address], [address], 07/10/2023 15:07:15 07/10/20 23 07/10/2023 urina lysis , dipst ick Unknown Analyte Negati ve Not Available [facility] [address] [place], [address], 07/10/2023 15:07:15 07/10/2007/10/2023 urina lysis , dipst ick Unknown Analyte Negati ve Not Available [facility] [address] [place] [address], [address], 07/10/2023 15:07:15 07/10/2007/10/2023 urina lysis , dipst ick Unknown Analyte Negati ve Not Available [facility] [address] [place] [address], [address], 07/10/2023 15:07:15 07/10/2007/10/2023 urina lysis , dipst ick Unknown Analyte Negati ve - Trace Not Available [facility] [address], [address], 07/10/2023 15:07:15 07/10/2007/10/2023 urina lysis , dipst ick Unknown Analyte 250 mg/dl Not Available [facility] [address], [address], 07/10/2023 15:07:15 07/10/2007/10/2023 urina lysis , dipst ick Unknown Analyte Normal Not Available [facility] [address] [place] [address], [address], 07/10/2023 15:07:15 07/10/2007/10/2023 urina lysis , dipst ick Unknown Analyte Negati ve Not Available [facility] [address], [address], 07/10/2023 15:07:15 07/10/2007/10/2023 urina lysis , dipst ick Unknown Analyte Negati ve Not Available [facility] [address], [address], 07/10/2023 15:07:15 07/10/2007/10/2023 urina lysis , dipst ick Unknown Analyte Normal Not Available [facility] [address] [place], [address], 07/10/2023 15:07:15 07/10/2007/10/2023 urina lysis , dipst ick Unknown Analyte Normal - 1mg/dl Not Available [facility] [address] [place], [address], 07/10/2023 15:07:15 07/10/2007/10/2023 urina lysis , dipst ick Unknown Analyte Negati ve Not Available [facility] [address] [place] [address], [address], 07/10/2023 15:07:15 07/10/2007/10/2023 urina lysis , dipst ick Unknown Analyte Negati ve Not Available [facility] [address] [place], [address], 07/10/2023 15:07:15 07/10/2007/10/2023 urina lysis , dipst ick Unknown Analyte Negati ve Not Available [facility] [address] [place], [address], 07/10/2023 15:07:15 07/10/2007/10/2023 urina lysis , dipst ick Unknown Analyte Negati ve Not Available [facility] [address] [place], [address], 07/10/2023 15:07:15 07/10/2007/10/2023 urina lysis , dipst ick Unknown Analyte Clean Catch Not Available [facility] [address] [place], [address], 07/10/2023 15:07:15 07/10/20 23 07/10/2023 urina lysis , dipst ick Unknown Analyte Automa kady Not Available [facility] [address] [facility], [place], [address], 07/10/2023 15:07:15 08/19/20 24 08/19/2024 urina lysis panel , auto Unknown Analyte Clean Catch Not Available [facility] [address] [place], [address], 08/19/2024 15:49:40 08/19/2008/19/2024 urina lysis panel , auto Unknown Analyte Yellow Not Available [facility] [address] [place], [address], 08/19/2024 15:49:40 08/19/2008/19/2024 urina lysis panel , auto Unknown Analyte Clear Not Available [facility] [address] [facility], [place], [address], 08/19/2024 15:49:40 08/19/20 24 08/19/2024 urina lysis panel , auto Unknown Analyte 1.015 Not Available [facility] [address] [place], [address], 08/19/2024 15:49:40 08/19/2008/19/2024 urina lysis panel , auto Unknown Analyte 6.0 Not Available [facility] [address] [facility], [place], [address], 08/19/2024 15:49:40 08/19/20 24 08/19/2024 urina lysis panel , auto Unknown Analyte Negati ve Not Available [facility] [address] [place], [address], 08/19/2024 15:49:40 08/19/20 24 08/19/2024 urina lysis panel , auto Unknown Analyte Negati ve Not Available [facility] [address] [facility], [place], [address], 08/19/2024 15:49:40 08/19/20 24 08/19/2024 urina lysis panel , auto Unknown Analyte Negati ve Not Available [facility] [address] [facility], [place], [address], 08/19/2024 15:49:40 08/19/2008/19/2024 urina lysis panel , auto Unknown Analyte 50 mg/dl Not Available [facility] [address] [facility], [place], [address], 08/19/2024 15:49:40 08/19/20 24 08/19/2024 urina lysis panel , auto Unknown Analyte Negati ve Not Available [facility] [address] [facility], [place], [address], 08/19/2024 15:49:40 08/19/20 24 08/19/2024 urina lysis panel , auto Unknown Analyte Normal Not Available [facility] [address] [facility], [place], [address], 08/19/2024 15:49:40 08/19/2008/19/2024 urina lysis panel , auto Unknown Analyte Negati ve Not Available [facility] [address] [facility], [place], [address], 08/19/2024 15:49:40 08/19/20 24 08/19/2024 urina lysis panel , auto Unknown Analyte Negati ve Not Available [facility] [address] [place], [address], 08/19/2024 15:49:40 08/21/20 24 08/21/2024 PSA, serum or plasm a PSA 9.2 NG/mL 0.0 - 4.0 Not Available [facility] [address] [address] [facility], [place], [address], 08/19/2024 16:31:41 04/22/20 25 04/22/2025 PROST ATE SPECI FIC AG prostate specific Ag 7.230 NG/mL 0.000- 4.400 high This test was perfo rmed using Yesenia e801 Elect yesenia milum inesc ent metho d. The test metho d is based on WHO-s tanda rdize d calib ratio n. Value s obtai ander from diffe rent assay metho ds or manuf actur ers may not be dottie rable . Not Available [facility] [address] [facility], [place], [address], 04/22/2025 17:18:24 10/29/19 25 09/22/2024 MRI, thora cic spine , w/o contr ast No observ ation record ed. [email or web address] Not Available 11/04 12:44:58 11/28/19 25 11/27/2024 US, retro perit oneum , limit ed [place] [facility] [address] [place] [address] Nadja pleitez Name: VALDEZ pleitez : 938 Nadja pleitez 6 Orderi ng Provid er: IVONNE MICHAUD EXAM DATE: 2024 EXAM: US KIDNEY BILAT WO [facility] R CLINIC AL INFORM ATION: Cyst TECHNI QUE: Multip le sonogr aphic images of both kidney s were obtain ed. COMPAR ALCIDES: None. FINDIN GS: RIGHT KIDNEY : Length = 10.8 cm. No hydron ephros is, mass or stone. Large cyst measur ing 11.3 cm. LEFT KIDNEY : Length = 10.8 cm. No hydron ephros is, mass or stone. IMPRES KARIME: Large benign -appea ring right renal cyst Interp reted By: Yair Valdez MD Electr onical ly Signed By: Yair Valdez MD on 11/28/19 2:49 PM [email or web address] [facility] [address] [place] [address], [place], [address], 12/31/2024 08:35:34 Result Notes None recorded. Problems Name Problem SNOMED Code Status Onset Date Resolution Date Notes Provider Name and Address Organization Details Recorded Time Lower urinary tract symptoms due to benign prostatic hypertrop hy 67815199561 101 Active 2014 From Automated Load;Prov ider: Yunior, Guadalupe;St atus: Active [facility] 15:30:42 Kidney stone 97289665 Active 2014 From Automated Load;Prov ider: Yunior, Guadalupe;St atus: Active Not Available [facility] 6 00:11:43 Hemosperm ia 83395568 Active 2015 From Automated Load;Prov ider: Yunior, Guadalupe;St atus: Active [facility] 15:30:42 Altered bowel function 37057453 Active 2017 [facility] 15:30:42 Constipat ion 68616957 Active 2017 [facility] 15:30:42 Problem Notes None recorded. Procedures Surgical History Date Name Laterality Status Provider Name and Address Organization Details Recorded Time 08/19/20 24 Post Void Residual; Ultrasound completed Jessie Pinto [facility] 08/19/2024 15:51:05 07/10/20 23 Post Void Residual; Ultrasound completed MAYNOR MICHAUD MD [address] [place] [address], [address], [facility] 07/10/2023 15:48:37 12/23/19 23 Neck Surgery completed Patrick Hendricks [facility] 03/13/2023 10:22:36 11/07/19 23 Destruction Premalignant Lesion(s) completed Peri Madsen [facility] 11/07/2022 14:59:38 09/28/19 23 Post Void Residual; Ultrasound completed Heydi Machuca [facility] 09/28/2022 10:52:15 12/26/19 22 Destruction MN Lesion; scalp, neck, hand, foot, genitalia completed [facility] 12/25/2021 12:22:40 12/26/19 22 Shave Lesion; scalp, neck, hand, foot, genitalia completed [facility] 12/25/2021 12:11:21 Heart Surgery completed [facility] 02/08/2017 12:30:08 Hernia Repair completed [facility] 02/08/2017 12:30:11 Kidney Stones completed MAYNOR MICHAUD MD [address] [place] [address], [address] 07/10/2023 16:07:16 Imaging Results None recorded. Procedure Notes None recorded. Medical Equipment None Reported. Allergies Allergen ID Allergen Name Allergen Category Reaction Reaction Severity Criticality Documentation Date Start Date Code Code System Note Provider Name and Address Organization Details Recorded Time 598186 Product containin g penicilli n (product) medicatio n Not available Not available Not available 08/17/20162012 34261 8001 SNOMED Comme nt: Creat ed By: Jona sortoCr eated Date: 013 9:47: 33 AM; Not Available [facility] 6 03:48:02 351117 tetracycl ine medicatio n Not available Not available Not available 02/02/2019 00233 RxNorm [facility] 15:30:41 142644 rosuvasta tin medicatio n Not available Not available Not available 02/02/2019 34791 2 RxNorm Other react ions and sever ities : 'Incr eased muscl e tone (find ing)' . [facility] 9 15:30:41 158913 pravastat in medicatio n Not available Not available Not available 02/02/2019 06746 RxNorm Melinda Wagner [facility] 9 15:30:41 836505 simvastat in medicatio n Not available Not available Not available 02/02/2019 91231 RxNorm [facility] 15:30:41 832365 pitavasta tin Not available Not available Not available Not available 08/26/20252022 34650 4 RxNorm Other react ion(s ): Muscl e spasm , Muscl e stiff ness 3Info obtai ander from Dr Gisselle Cheng [place], [place] Not Available [facility]ad - External Data Service - prod 11:39:38 543379 Nicotinic acid (substanc e) Not available rash Not available low 08/26/20252022 78803 3001 SNOMED Not Available [facility] - External Data Service - prod 11:40:58 525124 pitavasta tin calcium medicatio n rash Not available low 08/26/20252022 92603 0 RxNorm Other react ion(s ): Muscl e spasm , Muscl e stiff ness 3Info obtai ander from Dr Gisselle Cheng [place], [place] Not Available [facility] - External Data Service - prod 11:40:58 241592 niacin medicatio n Not available Not available low 08/26/20252022 7393 RxNorm Not Available [facility] - External Data Service - prod 11:46:57 495245 colesevel am hydrochlo ride medicatio n Not available Not available low 08/26/20252022 83810 5 RxNorm Not Available [facility] - External Data Service - prod 11:46:57 Medications Name Sig Start Date Stop Date Status Note LastModified by Organization Details LastModified Time Trimix 0.15-0.2 5 ml injectio n as needed 12/25 completed Not Available Not Available Not Available carvedilo l 25 mg tablet Take 1 tablet twice a day by oral route. active Not Available Not Available No t Available aspirin 325 mg tablet Daily 12/25 completed Duration : 30 days;Walt quency: daily;Me dication Descript ion: aspirin; Dosage:1 ; Route:or al; refills: 0; Quantity :30 tablet Not Available Not Available Not Available carvedilo l 3.125 mg tablet Daily 07/10 completed Medicati on Descript ion: carvedil ol; Route:or al; refills: 0 Not Available Not Available Not Available tamsulosi n 0.4 mg capsule TAKE 1 CAPSULE EVERY EVENING active Not Available Not Available No t Available alfuzosin ER 10 mg tablet,ex tended release 24 hr Take 1 tablet every day by oral route for 90 days. 07/10 completed Not Available Not Available Not Available Plavix 12/25 completed Not Available Not Available Not Available silodosin 8 mg capsule Take by oral route for 90 days. 07/10 completed Not Available Not Available Not Available Repatha Pushtrone x active Not Available Not Available Not Available aspirin 81 mg capsule Take 1 capsule every day by oral route. active Not Available Not Available No t Available Vitals Date Recorded Body height Body mass index (BMI) Body weight Provider Name and Address Organization Details Last Updated DateTime 03/11/2023 167.64 cm 25.8 kg/m2 51043.78 g Concha Marion [facility] 03/11/2023 16:22:23 Date Recorded Body height Body mass index (BMI) Body weight Provider Name and Address Organization Details Last Updated DateTime 03/13/2023 167.64 cm 25.8 kg/m2 24018.78 g Patrick Hendricks [facility] 03/13/2023 10:21:35 Social History Question Answer Notes LastModified by Organizat ion Details LastModified Time Tobacco Smoking Status Former Smoker [facility] 02/08/2017 12:29:52 How Much Tobacco Do You Chew? None Information not available 02/09/2019 What Was The Date Of Your Most Recent Tobacco Screening? 03/13/2023 Information not available 03/13/2023 Has Tobacco Cessation Counseling Been Provided? No [email or web address] Information not available 03/27/2022 Have You Recently Traveled Abroad? No [email or web address] Information not available 03/27/2022 Sex: Unknown Functional Status Question Answer Note LastModified by Organizat ion Details LastModified Time Do you use any illicit or recreational drugs? No Information not available 03/27/2022 Do you or have you ever used any other forms of tobacco or nicotine? No Information not available 03/27/2022 What is your level of alcohol consumption? None [email or web address] Information not available 02/08/2017 Mental Status None recorded. Family History Relationship Description Onset Age of this Age Resolved Age Notes LastModified by Organization Details LastModified Time Father No current problems or disability [email or web address] Not available 08/09 10:47:24 Mother No current problems or disability [email or web address] Not available 08/09 10:47:24 Notes:renal disorder, chroni c disabling disease Medical History Condition Response Kidney Stones Y BPH Y High Cholesterol Y Hypertension Y Past Encounters Encounter ID Performer Location Encounter Start Date Encounter Closed Date Diagnosis/Indication Diagnosis SNOMED-CT Code Diagnosis ICD10 Code Diagnosis IMO Codes Diagnosis Note [id number] GUADALUPE MOJICA MD [facility] [address],[place] [address] 02/08/2017 12:07:40 02/13/2017 09:40:29 Benign prostatic hyperplasia with outflow obstruction 054140017 N40.1 Impotence of organic origin 419474909 N52.9 [id number] GUADALUPE MOJICA MD [facility] [address] [place] [id number] 08/09/2017 10:11:22 08/12/2017 10:22:41 Benign prostatic hyperplasia with outflow obstruction 478257936 N40.1 [id number] GUADALUPE MOJICA MD [facility] [address] [address] 02/07/2018 09:39:33 02/07/2018 10:39:49 Benign prostatic hyperplasia with outflow obstruction 497837804 N40.1 [id number] MILAGRO EAGLE MD GASTRO [address] [facility], [address] [place] [id number] 06/03/2018 13:24:32 06/03/2018 14:11:23 Altered bowel function 82565018 R19.4 Probably secondary to recent hospitaliz ation but would recommend colonoscop y exam in view of age. Constipation 73699573 K5 9.00 Exacerbate d by hospitaliz ation and bed rest. Continue with Miralax therapy and recommend colonoscop y exam. [id number] MILAGRO EAGLE MD SURGERY SCHEDULE [address] [place] [address] 06/30/2018 11:39:17 06/30/2018 11:41:47 [id number] GUADALUPE MOJICA MD [facility] [address] [place], [place] [id number] 02/09/2019 13:48:21 02/09/2019 15:56:23 Kidney stone 20737231 N20.0 Benign pro static hyperplasia with outflow obstruction 222329326 N40.1 [id number] GUADALUPE MOJICA MD [facility] [address] [place], [place] [id number] 06/19/2021 14:54:30 06/19/2021 15:50:40 Benign prostatic hyperplasia with outflow obstruction 959450546 N40.1 Kidney stone 12294652 N2 0.0 [id number] GUADALUPE MOJICA MD [facility] [address] [place] [id number] 09/25/2021 13:01:27 09/25/2021 13:36:18 Benign prostatic hyperplasia with outflow obstruction 569049335 N40.1 Nocturia 066722125 R35.1 Kidney stone 58794072 N2 0.0 [id number] GARRETT SIM PA-C [facility] [address] [place] [address] 12/25/2021 10:48:58 12/25/2021 12:33:28 Patient advised about exposure to the sun 918386432 Z71.89 Counseled on sun protective clothing/h ats and daily UV protection with otc broad-spec trum SPF 30+ on exposed areas. Regular self-skin exams recommende d. Pt encouraged to RTC with any new/changi ng lesions. History of malignant basal cell neoplasm of skin 348025641 Z85.828 History of several BCCs per patient treated several years ago on face including L jaw line & L templePati ent under previous care of Dr. 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 Benign reassuranc e Hemangioma 791514376 D18 .00 Benign reassuranc e Multiple b enign melanocytic nevi 390717302 D22.9 Benign reassuranc e Raised boogie orrheic keratosis 3840158787 70424 L82.1 Benign reassuranc e Basal cell carcinoma of neck 237769110 C44.41 Clinically suspect BCC, history of several BCC on face 7 mm pink pearly papule on the L proximal lateral neck - r/o BCC Shave removal of lesion with EDC x3 todaySee procedure notesWound care was givenConse nt was signedPhot o takenF/up per path [id number] GUADALUPE MOJICA MD [facility] [address] [address] [place] [address] 03/27/2022 11:14:32 03/27/2022 12:09:10 Benign prostatic hyperplasia with outflow obstruction [id number] N40.1 Increased frequency of urination 320202300 R35.0 [id number] GARRETT SIM PA-C [facility] [address] [place] [address] 04/02/2022 11:38:05 04/02/2022 13:30:33 History of malignant basal cell neoplasm of skin [id number] Z85.828 History of several BCCs per patient, treated several years ago on face including L jaw line & L templePati ent under previous care of Dr. My Meadows at [facility] recurrence Most recently, L proximal lateral neck s/p EDC - No EOR, will continue to monitor Patient ad vised about exposure to the sun 101793663 Z71.89 Counseled on sun protective clothing/h ats and daily UV protection with otc broad-spec trum SPF 30+ on exposed areas. Regular self-skin exams recommende d. Pt encouraged to RTC with any new/changi ng lesions. Lentiginosis 375026445 L 81.4 Benign reassuranc e Multiple b enign melanocytic nevi 650154005 D22.9 Benign reassuranc e Raised boogie orrheic keratosis [id number] 81440 L82.1 Benign reassuranc e [id number] GARRETT SIM PA-C [facility] [address] [place] [address] 11/07/2022 14:50:29 11/07/2022 15:07:57 History of malignant basal cell neoplasm of skin [id number] Z85.828 History of several BCCs per patient, treated several years ago on face including L jaw line & L templePati ent under previous care of Dr. My Meadows at [facility] Dermatolog yNo recurrence Most recently, L proximal lateral neck s/p EDC - No EOR, will continue to monitor Patient ad vised about exposure to the sun 017041349 Z71.89 Counseled on sun protective clothing/h ats and daily UV protection with otc broad-spec trum SPF 30+ on exposed areas. Regular self-skin exams recommende d. Pt encouraged to RTC with any new/changi ng lesions. Actinic keratosis 066279 [address] x 1 (2FT cycles)see procedure notept tolerated wellafter care instructio ns were given Multiple b enign melanocytic nevi 435060752 D22.9 Benign reassuranc e Lentiginosis 160487125 L 81.4 Benign reassuranc e Raised boogie orrheic keratosis 1266116730 03405 L82.1 Benign reassuranc e Hemangioma 308436268 D18 .00 Benign reassuranc e [id number] MD AKIN W[facility] [address] [place] [address] 09/28/2022 10:25:57 09/28/2022 11:05:09 Benign prostatic hyperplasia with outflow obstruction 713776462 N40.1 Increased frequency of urination 405963405 R35.0 [id number] MD AKIN [facility] [address] [place] [address] 03/11/2023 13:16:41 03/11/2023 14:59:50 Benign prostatic hyperplasia with outflow obstruction 155954128 N40.1 Retention of urine 76149 4002 R33.9 [id number] GUADALUPE MOJICA MD [facility] [address] [address] 03/13/2023 09:56:13 03/18/2023 04:12:47 Benign prostatic hyperplasia with outflow obstruction 760773605 N40.1 Increased frequency of urination 867050856 R35.0 [id number] GARRETT SIM PA-C [facility] [address] [place] [address] 07/22/2023 14:26:39 07/22/2023 15:51:14 History of malignant basal cell neoplasm of skin 470216851 Z85.828 History of several BCCs per patient, treated several years ago on face including L jaw line & L templePati ent under previous care of Dr. 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 Regular self-skin exams recommende d. Pt encouraged to RTC with any new/changi ng lesions. [id number] MAYNOR MICHAUD MD UROLOGY [address] [place] [address] 07/10/2023 14:46:14 07/11/2023 19:54:09 Lower urinary tract symptoms due to benign prostatic hypertrophy 1027094690 9101 N40.1 Screening for malignant neoplasm of prostate 529233384 Z12.5 History of urinary stone 820641862 Z87.442 [id number] MAYNOR MICHAUD MD UROLOGY [facility] [address] [facility] [place] [address] 08/19/2024 15:11:20 08/19/2024 16:39:54 Lower urinary tract symptoms due to benign prostatic hypertrophy 3265282898 9101 N40.1 Screening for malignant neoplasm of prostate 963307426 Z12.5 History of urinary stone 946924709 Z87.442 Health Concerns Section Related Observation LastModified by Organization Detai ls LastModified Time None Recorded Concern Status LastModified by Organization Details LastModified Time None Recorded Advance Directives Directive None Recorded Payers Insurance Date Sequence Insurance Name Policy Number Policy Valadez Covered Member ID Valadez Member ID Guarantor Name 04/24/2025 1 [place] Valdez Grier [id number] Valdez Grier 04/24/2025 2 [place] [id number] Valdez Grier [id number] Valdez Grier Notes Date Note Type Note Provider Name and Address Organization Details Recorded Time 3 text/html 87-year-old male in office for an ER follow up visit. Patient was in the ER on the weekend of March 09, 2023. He had urinary retention requiring catheter placement. He has shingles breakout on his left hip. Before shingles breakout he denies bothersome urinary symptoms. Patient has not been taking his alfuzosin medication since September 2022. GUADALUPE MOJICA MD [address] [place] [address], [phone], [facility] 03/17/2023 19:37:52 3 text/html 87-year-old male in the office for follow-up evaluation of benign prostatic hyperplasia with lower urinary symptoms and history of urolithiasis. He had a catheter placed for urinary retention and is having it removed today. He has been taking alfuzosin. GUADALUPE MOJICA MD [address] [place] [address], [phone], [facility] 03/17/2023 12:54:57 3 text/html 87-year-old white male self-referred to establish a new urologist. He is here with his payroll accounting specialist Arabella who is a patient of mine and his daughter Viki. He was a patient of Dr. Isis Dodson and Dr. Mojica. He has a history of urolithiasis since he was a teenager. He passed several stones over the years. He underwent ESWL and ureteroscopic basket stone extraction in 2004. A Litholink 24-hour urine showed elevated calcium. He tried hydrochlorothiazide but had leg cramps. He was on potassium citrate. Stone analysis in 2014 and 2018 showed calcium oxalate. He has a history of elevated PSA. He had negative prostate biopsies in 2008, 2011, and 2012, volume 54 mL. He underwent hydrocelectomy in 2012. He has a history of BPH. He started alfuzosin in 2020 and switched to silodosin in 2021. He had urinary retention 02/2023 associated with shingles involving the left hip. He had been off alfuzosin a few months and it was restarted. He failed a voiding trial and had catheter replacement. He is currently on tamsulosin. He is voiding well. He has good flow, mild frequency, some urgency, and nocturia 1 time. The AUA symptom index is 10. He has a history of erectile dysfunction. He has used oral ED medications and Trimix. He quit smoking in 1986. He has a family history of kidney stones. He is a hendricks. He is . MAYNOR MICHAUD MD [address] [place] [address], [phone], [facility] 07/10/2023 17:25:06 3 text/html ROS as noted in the HPI Established Patient Patient presents to clinic today for 6 month FSE. History of multiple BCCs and AKs. Denies any other new, changing, or bleeding lesions, or other rashes, feels well, and has no family history of melanoma. GARRETT SIM PA-C [address] [place] [address], [phone], [facility] 07/22/2023 15:14:11 4 text/html Diagnoses: Urolithiasis, elevated PSA, hydrocele, BPH, urinary retention, erectile dysfunction 88 year-old white male who came here with his payroll accounting specialist Arabella who is a patient of mine and his daughter Viki. He was a patient of Dr. Isis Dodson and Dr. Mojica. He has a history of urolithiasis since he was a teenager. He passed several stones over the years. He underwent ESWL and ureteroscopic basket stone extraction in 2004. A Litholink 24-hour urine showed elevated calcium. He tried hydrochlorothiazide but had leg cramps. He was previously on potassium citrate. Stone analysis in 2014 and 2018 showed calcium oxalate. A KUB 05/2021 at [facility] showed no visible stones. He has a history of elevated PSA. He had negative prostate biopsies in 2008, 2011, and 2012, volume 54 mL. He underwent hydrocelectomy in 2012. He has a history of BPH. He started alfuzosin in 2020 and switched to silodosin in 2021. He had urinary retention in 2022 associated with shingles involving the left hip. He had been off alfuzosin a few months and it was restarted. He failed a voiding trial and had catheter replacement. He later switched to tamsulosin. He has a history of erectile dysfunction. He has used oral ED medications and Trimix. He quit smoking in 1986. He has a family history of kidney stones. He is a hendricks. He is . HPI: Patient is here with Arabella for yearly follow-up. He continues on tamsulosin. He is voiding well. He has good flow, no significant frequency or urgency, and nocturia 1 time. The AUA symptom index is 1. MAYNOR MICHAUD MD [facility] [place], [address], [facility] 08/19/2024 17:33:16
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
--- OUTSIDE RECORDS SUMMARY | 2025-09-12 16:02 | XMS_ITS | Encounter Summary ---
Author Organization [facility] ([place], [place], [place], [place], [place]) Address [address] [place] [address] Care Team Providers Care Optometry Assistant Name Role Phone Dillan Donnelly MD Primary Care Provider [phone] Cory Finley MD Primary Care Provider [phone] Encounter Details Date Type Department Care Team (Late st Contact Info) Description 01/09/2019 Transcribed Document [facility] [place] [address] ProviderCitlali MD [address] [place] [address] Social History Tobacco Use Types Packs/Day Years Used Date Smoking Tobacco: Never Assessed Sex and Gender Information Value Date Recorded Sex Assigned at Not on file Legal Sex Male 1:29 PM CDT Gender Identity Not on file Sexual Orientation Not on file documented as of this encounter Miscellaneous Notes * Jess Conversion Note - Citlali ProviderMD - 01/09/2019 6:58 PM CDT Electronically signed by [facility] Conversion Oceanology Teacher Jess at 01/08/2023 3:32 PM CDT documented in this encounter Plan of Treatment Not on file documented as of this encounter Visit Diagnoses Not on filedocumented in this encounter Care Teams Optometry Assistant Relationship Specialty Start Date End Date Dillan Donnelly MD [address] [place] [address] PCP - General Adolescent Medicine 07/20/22 01/03/23 Cory Finley MD [address] [place] [address] PCP - General Family Medicine 01/04/23 documented as of this encounter
--- OUTSIDE RECORDS SUMMARY | 2025-09-12 16:02 | XMS_ITS | Encounter Summary ---
Author Organization [employer] ([place], [place], [place], [place], [place]) Address [address] [place] [address] Care Team Providers Care Barrow Worker Helper Name Role Phone Dillan Mejias MD Primary Care Provider [phone] Cory Finley MD Primary Care Provider [phone] Encounter Details Date Type Department Care Team (Late st Contact Info) Description 01/13/2019 Transcribed Document [facility] Family Medicine [address] [place] [address] ProviderCitlali MD [address] [place] [address] Social History Tobacco Use Types Packs/Day Years Used Date Smoking Tobacco: Never Assessed Sex and Gender Information Value Date Recorded Sex Assigned at Not on file Legal Sex Male 1:29 PM CDT Gender Identity Not on file Sexual Orientation Not on file documented as of this encounter Miscellaneous Notes * Cerner Conversion Note - Citlali Bhandari MD - 01/13/2019 1:27 PM CDT [facility] [place] [address] VALDEZ MCGOWAN EAR :1935 Visit Time:01/13/2019 Your Visit Summary Your Care Team Admitting Physician - JANET PRO MD Attending Physician - JANET PRO MD Primary Care Physician - DILLAN MEJIAS (REF)MD-[facility] Referring Physician - JANET PRO MD Your Diagnosis Abdominal pain Constipation Constipation Patient Portal Reminder: Be sure to sign up for the [facility] patient portal, which gives you 15/04 access to your medical information ??? including these discharge instructions ??? using your computer, smartphone, or tablet. Just go to [employer] to get started. Questions? Call . You may also obtain a copy of your Emergency Department visit from Medical Records by calling the hospital phone number listed above and asking to be directed to the Medical Records Department. If you had special tests, such as EKG???s or X-rays, the interpretation of your tests given to you by the Emergency Department Physician is a preliminary report. Some fractures and illnesses fail to show up on preliminary tests. These will be reviewed again and we will call you if there are any new suggestions. If your symptoms continue notify your physician. After you leave, you should follow the instructions provided. What to do next Follow-Up Appointments Follow Up with [facility] When Within 2 to 3 days Comments Patient states Dillan Mejias is his Primary Care Provider. Please contact the Patient Resource Center at if you need assistance scheduling a Specialist or Primary Care Provider in the future. Follow Up with CHIQUI LONG When Within As needed Comments Referral information provided for Dr. Long with gastroenterology with worsening or ongoing constipation patient is advised make next available appointment Where: [address] [facility] [address] [place] [id number] Business (1) Follow Up with Return to Emergency Department When Within As needed Comments Follow-up as instructed Return if condition worsens Follow Up with DILLAN MEJIAS When Within 2 to 3 days Where: [address] [place] [address] Business (1) Allergies Crestor (Muscle spasm, Muscle stiffness) Livalo (Muscle spasm, Muscle stiffness) penicillins pravastatin (muscle weakness, muscle weakness) simvastatin (elevated lft s, elevated lft s) tetracycline (nausea, nausea) Immunizations This Visit No Immunizations Found Medications What How Much When Instructions Next Dose Unchanged aspirin 81 Milligram(s) Oral Every Day Unchanged carvedilol (carvedilol 12.5 mg oral tablet) 1 Tablet(s) Oral Two Times A Day Unchanged clopidogrel (Plavix 75 mg oral tablet) 1 Tablet(s) Oral Every Day Unchanged nitroglycerin (nitroglycerin 0.4 mg sublingual spray) 1 [place](s) SubLINgual Every 5 minutes as needed for for chest pain Unchanged polyethylene glycol 3350 (MiraLax) 1 Gram(s) Oral Two Times A Day The home medications listed are only as accurate as the information you provided. Please continue taking all of your medications prescribed by your Primary Care Provider unless specifically told to change or discontinue the medication. Please direct any questions regarding your home medications to your Primary Care Provider. Take your medications faithfully. Do NOT skip medication. Do NOT stop taking medications without the direction of a physician. Carry a list of your medications with you at all times, and take this medication list with you to your first follow up visit. Report any side effects. Avoid herbal remedies unless discussed with your physician. As part of your treatment plan, your physician may have prescribed a limited course of a controlled substance. This medication may be given to help people with moderate or severe pain or for other medical conditions, but there are risks involved with treatment. Common side effects may include nausea, constipation, drowsiness, sweating, itching, dry mouth, and rash. More serious side effects may include cognitive and motor impairment, like problems with thinking, concentrating, alertness, and movement (e.g. slowed reflexes), and driving and operating heavy machinery can be dangerous. It is important for you to talk to your physician if you have these side effects or questions. These controlled substances can produce physical dependence and be habit-forming if taken for an extended period of time, which means that the body has gotten used to them and may experience withdrawal symptoms if they are abruptly stopped. Withdrawal symptoms can include runny nose, sweating, goose bumps, diarrhea, abdominal cramping, rapid heartbeat, difficulty sleeping, and nervousness. Please dispose of unused and medications per pharmacy guidance. Test Results Laboratory or Other Results This Visit (last charted value for your 01/13/2019 visit) General Chemistry 01/13/19 10:38:00 Creatinine Level: 1.00 mg/dL -- Normal range between ( 0.70 and 1.30 ) Sodium Level: 141 mmol/L -- Normal range between ( 136 and 146 ) Potassium Level: 4.7 mmol/L -- Normal range between ( 3.5 and 5.1 ) Chloride Level: 108 mmol/L -- Normal range between ( 102 and 112 ) Carbon Dioxide Level: 26 mmol/L -- Normal range between ( 21 and 32 ) Anion Gap: 12 -- Normal range between ( 9 and 20 ) Bun/Creatinine: 10.9 -- Normal range between ( 8.0 and 20.0 ) Calcium Level: 9.1 mg/dL -- Normal range between ( 8.4 and 10.1 ) eGFR : >60 mL/min/1.73m2 eGFR NonAfrican: >60 mL/min/1.73m2 Glucose Level: 125 mg/dL -- Normal range between ( 74 and 106 ) Blood Urea Nitrogen: 12 mg/dL -- Normal range between ( 7 and 22 ) Diagnostic Radiology 01/13/19 10:36:00 CR Abdomen 1 Vw: CR Abdomen 1 Vw Education Materials Constipation, Adult Constipation is when a person: ??? Poops (has a bowel movement) fewer times in a week than normal. ??? Has a hard time pooping. ??? Has poop that is dry, hard, or bigger than normal. Follow these instructions at home: Eating and drinking ??? Eat foods that have a lot of fiber, such as: ? Fresh fruits and vegetables. ? Whole grains. ? Beans. ??? Eat less of foods that are high in fat, low in fiber, or overly processed, such as: ? [place]ish fries. ? Hamburgers. ? Cookies. ? Candy. ? Soda. ??? Drink enough fluid to keep your pee (urine) clear or pale yellow. General instructions ??? Exercise regularly or as told by your doctor. ??? Go to the restroom when you feel like you need to poop. Do not hold it in. ??? Take puzt-lbw-oghowmc and prescription medicines only as told by your doctor. These include any fiber supplements. ??? Do pelvic floor retraining exercises, such as: ? Doing deep breathing while relaxing your lower belly (abdomen). ? Relaxing your pelvic floor while pooping. ??? Watch your condition for any changes. ??? Keep all follow-up visits as told by your doctor. This is important. Contact a doctor if: ??? You have pain that gets worse. ??? You have a fever. ??? You have not pooped for 4 days. ??? You throw up (vomit). ??? You are not hungry. ??? You lose weight. ??? You are bleeding from the anus. ??? You have thin, pencil-like poop (stool). Get help right away if: ??? You have a fever, and your symptoms suddenly get worse. ??? You leak poop or have blood in your poop. ??? Your belly feels hard or bigger than normal (is bloated). ??? You have very bad belly pain. ??? You feel dizzy or you faint. This information is not intended to replace advice given to you by your health care provider. Make sure you discuss any questions you have with your health care provider. Document Released: 02/25/2009 Document Revised: 03/29/2017 Document Reviewed: 02/27/2017 [facility] Interactive Patient Education ?? 2017 [employer]. Emergency Awareness and Preventative Care STROKE is an EMERGENCY Every Minute Counts Act FAST and Check for these signs: FACE Does the face look uneven? ARM Does one arm drift down? SPEECH Does their speech sound strange? TIME Call at any sign of stroke Stroke Risk Factors Atrial Fibrillation (irregular heartbeat) Diabetes Family history of stroke Heart Disease Heavy alcohol use High Blood Pressure High Cholesterol Physical inactivity and obesity Smoking Cigarette Smoking The facts are clear, cigarette smoking will shorten your life. Smoking can cause many illnesses along the way. As a healthcare provider, we recommend that you stop smoking. Assistance with quitting is available by contacting 0-371-QXDL-NOW. This is a free resource providing counseling, support, and referral. Or you may contact your personal physician. National Suicide Prevention Lifeline: The National Suicide Prevention Lifeline is a national network of local crisis centers that provides free and confidential emotional support to people in suicidal crisis or emotional distress 24 hours a day, 7 days a week. Don't Wait! Stop a Heart Attack Before it Starts What is a heart attack? A heart attack is damage or to a part of the heart from severely decreased or lack of blood flow to the heart. Over time, arteries can become narrow from the buildup of fat and cholesterol, which is called plaque. The plaque can rupture causing a blood clot to form. When the blood clot forms, the artery can become severely narrowed or completely blocked, causing a heart attack. Heart attack is the leading cause of in the [place]. 85% of muscle damage occurs within the first 2 hours. Delay in the recognition of heart attack symptoms increases the chances of . Know the early symptoms of a heart attack: Nausea Feeling of fullness in chest Jaw Pain Pain that travels down one or both arms Fatigue/being tired Anxiety Back Pain Chest pressure, squeezing, or discomfort Shortness of breath Sweating, or a cold sweat Feeling of impending doom There are unusual signs of a heart attack, too! Women, the elderly, and diabetics may present with atypical symptoms: Fainting/dizziness Weakness Confusion Risk Factors for a Heart Attack Some heart disease risk factors, such as age and family history, cannot be changed. Others, like smoking and lack of exercise, can be changed. Smoking High Cholesterol High Blood Pressure Family History Obesity Age Gender (Males are at higher risk) Lack of Exercise Diabetes Diet Stress Excessive Alcohol Intake If you or someone you know is experiencing the signs and symptoms of a heart attack, DON???T DELAY. Call immediately and seek help. If someone collapses, perform CPR! Do not attempt to drive if you are having symptoms of heart attack. Hands-Only CPR Why Hands-Only CPR? Hands-Only CPR has been shown to be as effective as conventional CPR for cardiac arrests that occur outside of a hospital. Survival depends on immediately receiving CPR from someone nearby. How do you perform Hands-Only CPR? There are two easy steps: Call if you see a teen or adult collapse Push hard and fast in the center of the chest at a beat of 100 beats per minute. Save a life! 4 WAYS TO GET AHEAD OF SEPSIS SEPSIS is a MEDICAL EMERGENCY. Time matters! Infections put you and your family at risk for a life-threatening condition called sepsis. Sepsis is the body's extreme response to an infection. It is life-threatening, and without timely treatment, sepsis can rapidly lead to tissue damage, organ failure, and . Sepsis happens when an infection you already have-in your skin, lungs, urinary tract or somewhere else-triggers a chain reaction throughout your body. 1 PREVENT INFECTIONS Take good care of chronic conditions. Talk to your doctor about getting the recommended vaccines. 2 PRACTICE GOOD HYGIENE Wash your hands frequently. Keep cuts or open sores clean and covered until they are healed. 3 KNOW THE SYMPTOMS Confusion or disorientation Shortness of breath High heart rate Fever, shivering, or feeling very cold Extreme pain or discomfort Clammy or sweaty skin 4 ACT FAST Get medical care IMMEDIATELY if you suspect sepsis or if you have an infection that is not getting better or is getting worse. To learn more about sepsis and how to prevent infections, visit www.cdc.gov/sepsis. The examination and treatment you have received in the Emergency Department has been done to provide an appropriate evaluation and stabilizing treatment on an emergency basis only. Given the limited resources, it is not meant to be a substitute for complete medical care. The follow-up doctor you named will receive a copy of your records and all test reports. IT IS IMPORTANT THAT YOU SCHEDULE A FOLLOW-UP APPOINTMENT AND ARE RE-EVALUATED. You should report any new complaints, symptoms, or remaining problems at that time. IT IS IMPOSSIBLE FOR THE EMERGENCY DEPARTMENT TO RECOGNIZE AND TREAT ALL ELEMENTS OF INJURY OR ILLNESS IN A SINGLE VISIT. If you have been referred to a specialist physician, it means that we believe you may have a condition that requires the expertise of a specialist. These physicians work in partnership with the hospital and have agreed to see referred patients in their office for further evaluation. KEEP IN MIND THAT THE SPECIALIST HAS HIS/HER OWN OFFICE POLICIES WHICH MAY REQUIRE PROPER INSURANCE OR PAYMENT UP FRONT BEFORE THE SPECIALIST WILL SEE YOU. It is your responsibility to call the specialist physician to make an appointment. We do not have the ability to refer patients to specialists/physicians that work with specific insurance companies. Please be advised that all financial charges or billing practices are determined by that practice, not the hospital. If your insurance company requires that you see a specialist from their approved list, it is your responsibility to contact your insurance company to make those arrangements. It is also your responsibility to follow any other requirements of your insurance company necessary to obtain coverage for claims submitted. We will bill your insurance; however, you are responsible today for any co-pay amounts. You will receive a separate bill for any services you may have received including: emergency, radiology, or pathology physicians. Patient Name:VALDEZ MCGOWAN MALIK I have received this information and was given the opportunity to ask questions. Patient/Kiln Operator Name: Patient/Kiln Operator Signature: Relationship to Patient: Clinician/Hospital Kiln Operator Signature: Please Provide a Telephone Number Where You Can Be Reached: Is it Permissible To Leave a Message? Date: Electronically signed by [facility] Conversion Front Desk Admin Cerner at 01/08/2023 3:05 PM CDT documented in this encounter Plan of Treatment Not on file documented as of this encounter Visit Diagnoses Not on filedocumented in this encounter Care Teams Barrow Worker Helper Relationship Specialty Start Date End Date Dillan Mejias MD [address] [place] [address] PCP - General Adolescent Medicine 07/20/22 01/03/23 Cory Finley MD [address] [place], [place] [id number] PCP - General Family Medicine 01/04/23 documented as of this encounter
--- OUTSIDE RECORDS SUMMARY | 2025-09-12 16:02 | XMS_ITS | Encounter Summary ---
Author Organization [facility] Address [address] [place] [address] Care Team Providers Care Lease Attendant Name Role Phone Danisha Nguyen OFFICE MACHINES SALES REPRESENTATIVE Primary Care Provider [phone] Encounter Details Date Type Department Care Team (Late Contact Info) Description 07/27/2025 Telephone [facility] C[facility] [address] [place] [address] Anita Alvarenga MD [address] [place], [place] [id number] Social History Tobacco Use Types Packs/Day Years [...] encounter Miscellaneous Notes * Telephone Encounter - Jennifer Myers RN - 07/27/2025 8:16 AM EST Per office they are requesting a manual transmission. Spoke to caregiver and she will be at his residence later this morning prior to appointment. She will call me at that time and I will assist witha manual transmission. documented in this encounter Plan of Treatment Upcoming Encounters Date Type Department Care Team (Late Contact Info) Description 09/20/2025 1:15 PM EST Office Visit [facility] [address] [place] [address] [place] [address] Huang Valdez MD [address] [place] [address] [place] [address] 09/29/2025 2:45 PM EST Office Visit [facility] [address] [place] [address] [place] [address] Willow Rodgers APRN [address] [place] [address] 09/29/2025 2:45 PM EST Clinical Support No Requirements [facility] [address] [place] [address] [place] [address] documented as of this encounter Visit Diagnoses Not on filedocumented in this encounter Care Teams Lease Attendant Relationship Specialty Start Date End Date Danisha Nguyen APRN [address] [place] [id number] PCP - General Family Medicine 02/05/24 documented as of this encounter
--- OUTSIDE RECORDS SUMMARY | 2025-09-12 16:02 | XMS_ITS | Encounter Summary ---
Author Organization [facility] ([place], [place], [place], [place], [place]) Address [address] [place] [address] Care Team Providers Care Ceo & Co Founder Name Role Phone Dillan Mejias MD Primary Care Provider [phone] Cory Finley MD Primary Care Provider [phone] Encounter Details Date Type Department Care Team (Late st Contact Info) Description 01/09/2019 Transcribed Document [facility] [place] [address] ProviderCitlali MD [address] [place] [id number] Social History Tobacco Use Types Packs/Day Years Used Date Smoking Tobacco: Never Assessed Sex and Gender Information Value Date Recorded Sex Assigned at Not on file Legal Sex Male 1:29 PM CDT Gender Identity Not on file Sexual Orientation Not on file documented as of this encounter Miscellaneous Notes * Cerner Conversion Note - Citlali Bhandari MD - 01/09/2019 7:36 PM CDT [facility] [place] [address] [place] EAR :1935 Visit Time:01/09/2019 Your Visit Summary Your Care Team Admitting Physician - KATIUSKA ORTIZ MD Attending Physician - KATIUSKA ORTIZ MD Primary Care Physician - DILLAN MEJIAS (REF)[facility] Referring Physician - KATIUSKA ORTIZ MD Your Diagnosis Constipation Dehydration Patient Portal Reminder: Be sure to sign up for the My [facility] patient portal, which gives you 15/04 access to your medical information ??? including these discharge instructions ??? using your computer, smartphone, or tablet. Just go to Chatty to get started. Questions? Call . You [...] do next Follow-Up Appointments Follow Up with DILLAN MEJIAS When Within 2 to 3 days Comments Call for follow up appointment with your doctor. It is important you drink more water. Use a bottle of magnesium citrate tonight, repeat in a couple of days if no improvement. Make sure you hydrate using these medications. Use MiraLAX. Follow-up with PCP and return with any acutely worsening symptoms. Where: [address] [place] [address] [facility] (1) Follow Up with Patient Resource Center When Within 2 to 3 days Comments Please contact the Patient Resource Center at if you need assistance finding a Primary Care Provider in the future. Allergies Crestor (Muscle spasm, Muscle stiffness) Livalo [...] nitroglycerin (nitroglycerin 0.4 mg sublingual spray) 1 [place](s) SubLINgual Every 5 minutes as needed for [...] This Visit (last charted value for your 01/09/2019 visit) Hematology 01/09/19 16:50:00 WBC: 6.2 K/uL -- Normal range between ( 3.6 and 9.5 ) RBC: 4.56 Million/uL -- Normal range between ( 4.20 and 5.70 ) Hct: 42.7 % -- Normal range between ( 40.1 and 51.0 ) Hgb: 14.1 g/dL -- Normal range between ( 13.5 and 17.3 ) Platelet Count: 203 K/uL -- Normal range between ( 163 and 369 ) MCH: 30.9 pg -- Normal range between ( 25.6 and 32.2 ) MCHC: 33.0 Gram/dL -- Normal range between ( 32.2 and 36.5 ) MCV: 93.6 fL -- Normal range between ( 79.0 and 94.8 ) Slide Review: No Eos %: 0.7 % -- Normal range between ( 0.0 and 7.0 ) [place] #: 0.91 K/uL -- Normal range between ( 0.16 and 1.00 ) Eos #: 0.04 x10(3)/uL -- Normal range between ( 0.00 and 0.80 ) [place] %: 14.8 % -- Normal range between ( 3.0 and 9.0 ) Baso %: 0.3 % -- Normal range between ( 0.0 and 1.5 ) Baso #: 0.02 x10(3)/uL -- Normal range between ( 0.00 and 0.20 ) RDW: 13.2 % -- Normal range between ( 11.7 and 14.9 ) Neut %: 69.7 % -- Normal range between ( 34.0 and 71.0 ) Neut #: 4.29 K/uL -- Normal range between ( 1.56 and 6.13 ) Lymph %: 14.0 % -- Normal range between ( 19.3 and 53.1 ) Lymph #: 0.86 x10(3)/uL -- Normal range between ( 1.00 and 3.90 ) MPV: 11.6 fL -- Normal range between ( 9.4 and 12.4 ) IG#: 0.03 x10(3)/uL -- Normal range between ( 0.00 and 0.05 ) IG%: 0.50 % -- Normal range between ( 0.00 and 0.60 ) Urinalysis 01/09/19 18:15:00 Urine Nitrite: Negative Urine Leukocyte Esterase: Negative Urine Appearance: Clear Urine Glucose Dipstick: Negative Urine Blood Dipstick: Negative Urine Urobilinogen Dipstick: 0.2 EU/dL Urine Protein Dipstick: Negative Urine Color: Yellow Urine Ketones Dipstick: 40 Ur Mucous: 2+ Urine pH Dipstick: 5.5 -- Normal range between ( 6.0 and 8.0 ) Urine Bilirubin Dipstick: Negative Urine Specific [place]: 1.021 -- Normal range between ( 1.005 and 1.030 ) Urine Type.: [facility] 01/09/19 15:46:00 Creatinine Level: 1.00 mg/dL -- Normal range between ( 0.70 and 1.30 ) Sodium Level: 141 mmol/L -- Normal range between ( 136 and 146 ) Potassium Level: 4.4 mmol/L -- Normal range between ( 3.5 and 5.1 ) Chloride Level: 108 mmol/L -- Normal range between ( 102 and 112 ) Carbon Dioxide Level: 24 mmol/L -- Normal range between ( 21 and 32 ) Anion Gap: 13 -- Normal range between ( 9 and 20 ) Bilirubin Total: 0.6 mg/dL -- Normal range between ( 0.2 and 1.2 ) A/G Ratio: 1.4 -- Normal range between ( 1.1 and 2.5 ) ALT: 34 Units/Liter -- Normal range between ( 16 and 61 ) AST: 23 Units/Liter -- Normal range between ( 5 and 37 ) Globulin: 2.8 Gram/dL -- Normal range between ( 1.5 and 4.5 ) Alk Phos: 138 Units/Liter -- Normal range between ( 27 and 136 ) Bun/Creatinine: 16.0 -- Normal range between ( 8.0 and 20.0 ) Calcium Level: 9.2 mg/dL -- Normal range between ( 8.4 and 10.1 ) eGFR : >60 mL/min/1.73m2 eGFR NonAfrican: >60 mL/min/1.73m2 Glucose Level: 99 mg/dL -- Normal range between ( 74 and 106 ) Blood Urea Nitrogen: 16 mg/dL -- Normal range between ( 7 and 22 ) Lactic Acid Level: 1.1 mmol/L -- Normal range between ( 0.4 and 2.0 ) Protein Total: 6.7 Gram/dL -- Normal range between ( 6.4 and 8.2 ) Albumin Level: 3.9 Gram/dL -- Normal range between ( 3.4 and 5.0 ) Computed Tomography 01/09/19 16:05:02 CT Abdomen Pelvis WO: CT Abdomen Pelvis WO Education Materials Constipation, Adult Constipation is when a person has fewer bowel movements in a week than normal, has difficulty having a bowel movement, or has stools that are dry, hard, or larger than normal. Constipation may be caused by an underlying condition. It may become worse with age if a person takes certain medicines and does not take in enough fluids. Follow these instructions at home: Eating and drinking ??? Eat foods that have a lot of fiber, such as fresh fruits and vegetables, whole grains, and beans. ??? Limit foods that are high in fat, low in fiber, or overly processed, such as turkmen fries, hamburgers, cookies, candies, and soda. ??? Drink enough fluid to keep your urine clear or pale yellow. General instructions ??? Exercise regularly or as told by your health care provider. ??? Go to the restroom when you have the urge to go. Do not hold it in. ??? Take tfra-zve-hgqrmyu and prescription medicines only as told by your health care provider. These include any fiber supplements. ??? Practice pelvic floor retraining exercises, such as deep breathing while relaxing the lower abdomen and pelvic floor relaxation during bowel movements. ??? Watch your condition for any changes. ??? Keep all follow-up visits as told by your health care provider. This is important. Contact a health care provider if: ??? You have pain that gets worse. ??? You have a fever. ??? You do not have a bowel movement after 4 days. ??? You vomit. ??? You are not hungry. ??? You lose weight. ??? You are bleeding from the anus. ??? You have thin, pencil-like stools. Get help right away if: ??? You have a fever and your symptoms suddenly get worse. ??? You leak stool or have blood in your stool. ??? Your abdomen is bloated. ??? You have severe pain in your abdomen. ??? You feel dizzy or you faint. This information is not intended to replace advice given to you by your health care provider. Make sure you discuss any questions you have with your health care provider. Document Released: 06/07/2005 Document Revised: 03/29/2017 Document Reviewed: 02/27/2017 [employer] Interactive Patient Education ?? 2017 Else[employer] Inc. Dehydration, Adult Dehydration is a condition in which there is not enough fluid or water in the body. This happens when you lose more fluids than you take in. Important organs, such as the kidneys, brain, and heart, cannot function without a proper amount of fluids. Any loss of fluids from the body can lead to dehydration. Dehydration can range from mild to severe. This condition should be treated right away to prevent it from becoming severe. What are the causes? This condition may be caused by: ??? Vomiting. ??? Diarrhea. ??? Excessive sweating, such as from heat exposure or exercise. ??? Not drinking enough fluid, especially: ? When ill. ? While doing activity that requires a lot of energy. ??? Excessive urination. ??? Fever. ??? Infection. ??? Certain medicines, such as medicines that cause the body to lose excess fluid (diuretics). ??? Inability to access safe drinking water. ??? Reduced physical ability to get adequate water and food. What increases the risk? This condition is more likely to develop in people: ??? Who have a poorly controlled long-term (chronic) illness, such as diabetes, heart disease, or kidney disease. ??? Who are age 65 or older. ??? Who are disabled. ??? Who live in a place with high altitude. ??? Who play endurance sports. What are the signs or symptoms? Symptoms of mild dehydration may include: ??? Thirst. ??? Dry lips. ??? Slightly dry mouth. ??? Dry, warm skin. ??? Dizziness. Symptoms of moderate dehydration may include: ??? Very dry mouth. ??? Muscle cramps. ??? Dark urine. Urine may be the color of tea. ??? Decreased urine production. ??? Decreased tear production. ??? Heartbeat that is irregular or faster than normal (palpitations). ??? Headache. ??? Light-headedness, especially when you stand up from a sitting position. ??? Fainting (syncope). Symptoms of severe dehydration may include: ??? Changes in skin, such as: ? Cold and clammy skin. ? Blotchy (mottled) or pale skin. ? Skin that does not quickly return to normal after being lightly pinched and released (poor skin turgor). ??? Changes in body fluids, such as: ? Extreme thirst. ? No tear production. ? Inability to sweat when body temperature is high, such as in hot weather. ? Very little urine production. ??? Changes in vital signs, such as: ? Weak pulse. ? Pulse that is more than 100 beats a minute when sitting still. ? Rapid breathing. ? Low blood pressure. ??? Other changes, such as: ? Sunken eyes. ? Cold hands and feet. ? Confusion. ? Lack of energy (lethargy). ? Difficulty waking up from sleep. ? Short-term weight loss. ? Unconsciousness. How is this diagnosed? This condition is diagnosed based on your symptoms and a physical exam. Blood and urine tests may be done to help confirm the diagnosis. How is this treated? Treatment for this condition depends on the severity. Mild or moderate dehydration can often be treated at home. Treatment should be started right away. Do not wait until dehydration becomes severe. Severe dehydration is an emergency and it needs to be treated in a hospital. Treatment for mild dehydration may include: ??? Drinking more fluids. ??? Replacing salts and minerals in your blood (electrolytes) that you may have lost. Treatment for moderate dehydration may include: ??? Drinking an oral rehydration solution (ORS). This is a drink that helps you replace fluids and electrolytes (rehydrate). It can be found at pharmacies and retail stores. Treatment for severe dehydration may include: ??? Receiving fluids through an IV tube. ??? Receiving an electrolyte solution through a feeding tube that is passed through your nose and into your stomach (nasogastric tube, or NG tube). ??? Correcting any abnormalities in electrolytes. ??? Treating the underlying cause of dehydration. Follow these instructions at home: ??? If directed by your health care provider, drink an ORS: ? Make an ORS by following instructions on the package. ? Start by drinking small amounts, about ?? cup (120 mL) every 5???10 minutes. ? Slowly increase how much you drink until you have taken the amount recommended by your health care provider. ??? Drink enough clear fluid to keep your urine clear or pale yellow. If you were told to drink an ORS, finish the ORS first, then start slowly drinking other clear fluids. Drink fluids such as: ? Water. Do not drink only water. Doing that can lead to having too little salt (sodium) in the body (hyponatremia). ? Ice chips. ? Fruit juice that you have added water to (diluted fruit juice). ? Low-calorie sports drinks. ??? Avoid: ? Alcohol. ? Drinks that contain a lot of sugar. These include high-calorie sports drinks, fruit juice that is not diluted, and soda. ? Caffeine. ? Foods that are greasy or contain a lot of fat or sugar. ??? Take wivd-fax-cixknfw and prescription medicines only as told by your health care provider. ??? Do nottake sodium tablets. This can lead to having too much sodium in the body (hypernatremia). ??? Eat foods that contain a healthy balance of electrolytes, such as bananas, oranges, potatoes, tomatoes, and spinach. ??? Keep all follow-up visits as told by your health care provider. This is important. Contact a health care provider if: ??? You have abdominal pain that: ? Gets worse. ? Stays in one area (localizes). ??? You have a rash. ??? You have a stiff neck. ??? You are more irritable than usual. ??? You are sleepier or more difficult to wake up than usual. ??? You feel weak or dizzy. ??? You feel very thirsty. ??? You have urinated only a small amount of very dark urine over 6???8 hours. Get help right away if: ??? You have symptoms of severe dehydration. ??? You cannot drink fluids without vomiting. ??? Your symptoms get worse with treatment. ??? You have a fever. ??? You have a severe headache. ??? You have vomiting or diarrhea that: ? Gets worse. ? Does not go away. ??? You have blood or green matter (bile) in your vomit. ??? You have blood in your stool. This may cause stool to look black and tarry. ??? You have not urinated in 6???8 hours. ??? You faint. ??? Your heart rate while sitting still is over 100 beats a minute. ??? You have trouble breathing. This information is not intended to replace advice given to you by your health care provider. Make sure you discuss any questions you have with your health care provider. Document Released: 09/09/2006 Document Revised: 04/05/2017 Document Reviewed: 11/02/2016 [employer] Interactive Patient Education ?? 2017 How do you roll?. Emergency Awareness and Preventative Care STROKE is [...] Assistance with quitting is available by contacting 2-399-NOFUDynamicsNOW. This is a free resource providing counseling, support, and referral. Or you may contact your personal physician. [employer] Suicide Prevention Lifeline: The National Suicide Prevention [...] was given the opportunity to ask questions. Patient/[facility] Name: Patient/[facility] Signature: Relationship to Patient: Clinician/Hospital [facility] Signature: Please Provide a Telephone Number Where You Can Be Reached: Is it Permissible To Leave a Message? Date: Electronically signed by Ivette, [facility] Conversion Physicist [employer] Cerner at 01/08/2023 3:10 PM CDT documented in this encounter Plan of Treatment Not on file documented as of this encounter Visit Diagnoses Not on filedocumented in this encounter Care Teams Ceo & Co Founder Relationship Specialty Start Date End Date Dillan Mejias MD [address] [place] [facility] [address] [place] [address] PCP - General Adolescent Medicine 07/20/22 01/03/23 Cory Finley MD [address] [address] PCP - General Family Medicine 01/04/23 documented as of this encounter
--- OUTSIDE RECORDS SUMMARY | 2025-09-12 16:02 | XMS_ITS | Encounter Summary ---
Author Organization [facility] Address [address] [place] [address] Care Team Providers Care Undergraduate Internship Name Role Phone Danisha Nguyen TR Primary Care Provider [phone] Encounter Details Date Type Department Care Team (Late Contact Info) Description 07/21/2024 Telephone [facility] [address] [place] [phone] Anita Alvarenga MD [address] [place] [address] Social History Tobacco Use Types Packs/Day Years [...] Description 09/20/2025 1:15 PM EST Office Visit [facility] [address] [place] [address] [place] [phone] Huang Valdez MD [address] [place] [address] [place] [address] 09/29/2025 2:45 PM EST Office Visit [facility] [address] [place] [address] [place] [phone] Willow Rodgers APRN [address] [place] [address] 09/29/2025 2:45 PM EST Clinical Support No Requirements [facility] [address] [place] [address] documented as of this encounter Visit Diagnoses Not on filedocumented in this encounter Care Teams Undergraduate Internship Relationship Specialty Start Date End Date Danisha Nguyen APRN [address] [place], [place] [id number] PCP - General Family Medicine 02/05/24 documented as of this encounter
--- OUTSIDE RECORDS SUMMARY | 2025-09-12 16:02 | XMS_ITS | Encounter Summary ---
Author Organization [facility] Address [address] [place] [address] Care Team Providers Care Quality Assurance Lead Name Role Phone Danisha Nguyen TR Primary Care Provider [phone] Encounter Details Date Type Department Care Team (Latest Contact Info) Description 07/27/2025 Travel Social History Tobacco Use Types Packs/Day [...] 09/20/2025 1:15 PM EST Office Visit [facility] [address] [place] [address] [place] [phone] Huang Valdez MD [address] [place] [address] [place] [address] 09/29/2025 2:45 PM EST Office Visit [facility] [address] [place] [phone] Willow Rodgers APRN [address] [place] [address] 09/29/2025 2:45 PM EST Clinical Support No Requirements [facility] [address] [place] [phone] documented as of this encounter Visit Diagnoses Not on filedocumented in this encounter Care Teams Quality Assurance Lead Relationship Specialty Start Date End Date Danisha Nguyen APRN [facility] [place] [id number] PCP - General Family Medicine 02/05/24 documented as of this encounter
--- OUTSIDE RECORDS SUMMARY | 2025-09-12 16:02 | XMS_ITS | Encounter Summary ---
Author Organization [facility] Address [address] [place] [address] Care Team Providers Care Scaling Machine Operator Name Role Phone Danisha Nguyen TR Primary Care Provider [phone] Reason for Visit * Reason Onset Date Comments - [facility]I 07/23/2025 Encounter Details Date Type Department Care Team (Late st Contact Info) Description 07/23/2025 Telephone [facility] C[facility] [address] [place] [phone] Anita Alvarenga MD [address] [place] [address] - [facility] Social History Tobacco Use Types Packs/Day Years [...] or training? Not on file Preferred Language Afghan 08/23/2025 Sex and Gender Information Value Date Recorded Sex Assigned at Not on file Legal Sex Male 1:10 PM EST Gender Identity Not on file Sexual Orientation Not on file documented as of this encounter Miscellaneous Notes * Telephone Encounter - Jessie Walton MA - 07/26/2025 8:42 AM EST Flora, on verbal, called back this morning. She states Valdez had some type of spell on Saturday were he was dizzy and felt like he was going to pass out. Ambulance was called and pt was taken to [facility]. He has not yet started on Eliquis. Records are in [facility]. He does have an appt tomorrow. * Telephone Encounter - Jessie Walton MA - 07/23/2025 4:03 PM EDT Left message to call back. * Telephone Encounter - Ash Maxwell RegSched Rep - 07/23/2025 3:56 PM EDT Caller: FLORA VICE Relationship: Spouse Best call back number: [phone] What is the best time to reach you: ANY Who are you requesting to speak with (clinical staff, provider, specific staff member): CLINICAL What was the call regarding: PATIENT WAS IN ER FOUND NO ISSUES, BUT WAS FAINTING PLEASE ADVISE. Is it okay if the provider responds through MyChart: NO documented in this encounter Plan of Treatment Upcoming Encounters Date Type Department Care Team (Late st Contact Info) Description 09/20/2025 1:15 PM EST Office Visit [facility] [address] [place] [address] [place] [address] Huang Valdez MD [address] [place] [address] [place] [address] 09/29/2025 2:45 PM EST Office Visit [facility] [address] [place] [address] [place] [address] Willow Rodgers APRN [address] [place] [address] 09/29/2025 2:45 PM EST Clinical Support No Requirements [facility] [address] [place] [place] [address] [place] [address] documented as of this encounter Visit Diagnoses Not on filedocumented in this encounter Care Teams Scaling Machine Operator Relationship Specialty Start Date End Date Danisha Nguyen, TR [address] [place] [phone] PCP - General Family Medicine 02/05/24 documented as of this encounter
--- OUTSIDE RECORDS SUMMARY | 2025-09-12 16:03 | XMS_ITS | Encounter Summary ---
Author Organization [employer] ([place], [place], [place], [place], [place]) Address [address] [place] [address] Care Team Providers Care Patient Care Nursing Assistant Name Role Phone Dillan Donnelly MD Primary Care Provider [phone] Cory Finley MD Primary Care Provider [phone] Encounter Details Date Type Department Care Team (Late st Contact Info) Description 01/09/2019 Transcribed Document [facility] [place] Family [place] [facility] [place] [address] ProviderCitlali MD [address] [place] [id number] Social History Tobacco Use Types Packs/Day Years Used Date Smoking Tobacco: Never Assessed Sex and Gender Information Value Date Recorded Sex Assigned at Not on file Legal Sex Male 1:29 PM CDT Gender Identity Not on file Sexual Orientation Not on file documented as of this encounter Miscellaneous Notes * Cerner Conversion Note - Citlali ProviderMD - 01/09/2019 3:12 PM CDT ED Assessment Entered On: 01/09/2019 15:50 EDT Performed On: 01/09/2019 15:17 EDT by KAI ECHEVERRIA ED Quick Look Assessment Level of Consciousness : Alert, Awake Affect/Behavior : Appropriate, Calm, Cooperative Orientation : Oriented x 4 Skin Temperature : Warm Skin Description : Dry KAI ECHEVERRIA - 01/09/2019 15:49 EDT ED General-Functional Assess Information Obtained From : Patient Preferred Communication Mode : Verbal Communication Barrier : None Primary Language : Niuean Any Spiritual/Cultural Needs or Requests : No Currently in Unsafe Situation : No KAI ECHEVERRIA 01/09/2019 15:49 EDT Social Habits Smoking Status : Former smoker, quit more than 30 days ago Smokeless Tobacco Status : Never Desires Tobacco Cessation Calc : 0 KAI ECHEVERRIA 01/09/2019 15:49 EDT Social History (As Of: 01/09/2019 15:50:43 EDT) Tobacco: Smoking Status Former smoker. (Last Updated: 03/08/2016 12:25:27 EDT by GODWIN BRENNAN, BRITTANY) Smoking Status Former smoker. Years of Use: 20. Used Tobacco, but Quit Yes. Last Used: quit in 1986. (Last Updated: 06/10/2017 09:23:49 EDT by OSBALDO DEVRIES RN) Alcohol: Use in Last 12 Months: No. (Last Updated: 08/05/2013 18:55:49 EST by LUISA LONGORIA RN) Substance Abuse: Drug Use Hx: No. Use in Last 12 Months: No. (Last Updated: 08/05/2013 18:55:45 EST by LUISA LONGORIA RN) Home/Environment: Living situation: Home/Independent. (Last Updated: 08/20/2018 07:39:11 EST by LICHA MAYFIELD PA-C) Respiratory Breath Sounds Auscultated : Anterior, Laterally Cough : None KAI ECHEVERRIA 01/09/2019 15:49 EDT Breath Sounds Assessment Grid All Lobes Breath Sounds : Clear KALIN : Clear LLL : Clear RUL : Clear RML : Clear RLL : Clear KAI ECHEVERRIA 01/09/2019 15:49 EDT Gastrointestinal ED Gastrointestinal Assessment WDL : WDL with exceptions (Comment: pt c/o ongoing constipation x approx 10 days. abdomen, soft, non-distended. [KAI ECHEVERRIA 01/09/2019 15:49 EDT] ) Gastrointestinal Symptoms : Abdominal pain, Constipation KAI ECHEVERRIA 01/09/2019 15:49 EDT Bowel Sounds Bowel Sounds All Quadrants : Active KAI ECHEVERRIA 01/09/2019 15:49 EDT Neurologic ASMT, ED Neurologic Assessment WDL : WDL Pupils Equal, Round, Reactive to Light : Yes KAI ECHEVERRIA 01/09/2019 15:49 EDT Electronically signed by Ivette, [facility] Conversion Drum Sander Setter Cerner at 01/08/2023 3:14 PM CDT documented in this encounter Plan of Treatment Not on file documented as of this encounter Visit Diagnoses Not on filedocumented in this encounter Care Teams Patient Care Nursing Assistant Relationship Specialty Start Date End Date Dillan Donnelly MD [address] [facility] [address] [place] [address] PCP - General Adolescent Medicine 07/20/22 01/03/23 Cory Finley MD [address] [place] [address] [place] [address] PCP - General Family Medicine 01/04/23 documented as of this encounter
--- OUTSIDE RECORDS SUMMARY | 2025-09-12 16:03 | XMS_ITS | Encounter Summary ---
Author Organization [employer] ([place], [place], [place], [place], [place]) Address [address] [place] [address] Care Team Providers Care Repairer Resistance Welding Machines Name Role Phone Dillan Donnelly MD Primary Care Provider [phone] Cory Finley MD Primary Care Provider [phone] Encounter Details Date Type Department Care Team (Late st Contact Info) Description 01/27/2019 Transcribed Document [facility] [place] [facility] [place] [address] ProviderCitlali MD [address] [place] [address] Social History Tobacco Use Types Packs/Day Years Used Date Smoking Tobacco: Never Assessed Sex and Gender Information Value Date Recorded Sex Assigned at Not on file Legal Sex Male 1:29 PM CDT Gender Identity Not on file Sexual Orientation Not on file documented as of this encounter Miscellaneous Notes * Cerner Conversion Note - Citlali Bhandari MD - 01/27/2019 9:59 AM CDT Patient: VALDEZ MCGOWAN EAR Age: 83 Years Sex: Male : 1935 *Operation Colonoscopy, Colon Aspiration, Colon Polypectomy, Indication for Surgery Abdominal bloating Change in bowel last colonoscopy 1 year ago. *Preoperative Diagnosis K59.00 R19.4 *Postoperative Diagnosis Colon polyp Diverticulosis hemorrhoids. *Surgeon(s) Primary Surgeon CHIQUI CHUN MD (Surgeon/Proceduralist, First) *Estimated Blood Loss None. The colon prep was good. Stool was collected for study. *Findings Normal cecum. A 6-7mm polyp in the ascending colon, snared with cautery and sent to pathology. Severe sigmoid diverticulosis without inflammation. Stool was collected for study. Medium hemorrhoids. *Specimen(s) Ascending colon. Complications None Linzess 290mcg daily. Follow up colonoscopy in 5 years. Date of Service Date/Time of Service SN - Proc - Start Time: 01/27/19 09:25:00 (EDT) (01/27/19 09:28:59 EDT) Electronically signed by Ivette, [facility] Conversion Activity Aide Cerner at 01/08/2023 3:29 PM CDT documented in this encounter Plan of Treatment Not on file documented as of this encounter Visit Diagnoses Not on filedocumented in this encounter Care Teams Repairer Resistance Welding Machines Relationship Specialty Start Date End Date Dillan Donnelly MD [address] [place] [address] [place] [address] PCP - General Adolescent Medicine 07/20/22 01/03/23 Cory Finley MD [address] [facility] [address] [place] [address] PCP - General Family Medicine 01/04/23 documented as of this encounter
--- OUTSIDE RECORDS SUMMARY | 2025-09-12 16:03 | XMS_ITS | Encounter Summary ---
Author Organization [employer] ([place], [place], [place], [place], [place]) Address [address] [place] [address] Care Team Providers Care Exhibitions Curator Name Role Phone Dillan Donnelly MD Primary Care Provider [phone] Cory Finley MD Primary Care Provider [phone] Encounter Details Date Type Department Care Team (Late st Contact Info) Description 01/13/2019 Transcribed Document [facility] [place] [facility] [place] [address] ProviderCitlali MD [address] [place] [id number] Social History Tobacco Use Types Packs/Day Years Used Date Smoking Tobacco: Never Assessed Sex and Gender Information Value Date Recorded Sex Assigned at Not on file Legal Sex Male 1:29 PM CDT Gender Identity Not on file Sexual Orientation Not on file documented as of this encounter Miscellaneous Notes * Cerner Conversion Note - Citlali ProviderMD - 01/13/2019 9:58 AM CDT ED Assessment Entered On: 01/13/2019 10:22 EDT Performed On: 01/13/2019 10:19 EDT by Olimpia Abebe Rn ED Quick Look Assessment Level of Consciousness : Alert, Awake Affect/Behavior : Appropriate, Calm, Cooperative Orientation : Oriented x 4 Skin Temperature : Warm Skin Description : Normal for ethnicity Olimpia Abebe Rn - 01/13/2019 10:19 EDT ED General-Functional Assess Information Obtained From : Patient Preferred Communication Mode : Verbal Communication Barrier : None Primary Language : Icelandic Any Spiritual/Cultural Needs or Requests : No Currently in Unsafe Situation : No Olimpia Abebe Rn - 01/13/2019 10:19 EDT Social Habits Smoking Status : Former smoker, quit more than 30 days ago Smokeless Tobacco Status : Never Desires Tobacco Cessation Calc : 0 Olimpia Abebe Rn - 01/13/2019 10:19 EDT Social History (As Of: 01/13/2019 10:22:24 EDT) Tobacco: Smoking Status Former smoker. (Last [...] 08/20/2018 07:39:11 EST by LICHA MAYFIELD PA-C) Cardiovascular ASMT, ED Cardiovascular Assessment WDL : WDOlimpia Altamirano Rn - 01/13/2019 10:19 EDT Respiratory Respiratory Assessment WDL : WDL Olimpia Abebe Rn - 01/13/2019 10:19 EDT Gastrointestinal ED Gastrointestinal Assessment WDL : WDL with exceptions (Comment: pt c/o constipation for over a week . pt was seen on saturday for same. pt states he had a small soft bm this am. pt denies any blood in stool, any change in appetite, and n/v. [Olimpia Abebe Rn - 01/13/2019 10:19 EDT] ) Gastrointestinal Symptoms : Abdominal pain, Constipation Stool Description : Soft Bowel Movemen, Last Date : 01/13/2019 8:00 EDT Olimpia Abebe Rn - 01/13/2019 10:19 EDT documented in this encounter Plan of Treatment Not on file documented as of this encounter Visit Diagnoses Not on filedocumented in this encounter Care Teams Exhibitions Curator Relationship Specialty Start Date End Date Dillan Donnelly MD [address] [place] [address] PCP - General Adolescent Medicine 07/20/22 01/03/23 Cory Finley MD [address] [place] [address] [address] [place] [address] PCP - General Family Medicine 01/04/23 documented as of this encounter
--- OUTSIDE RECORDS SUMMARY | 2025-09-12 16:03 | XMS_ITS | Encounter Summary ---
Author Organization [employer] ([place], [place], [place], [place], [place]) Address [address] [place] [address] Care Team Providers Care Manugrapher Name Role Phone Dillan Mejias MD Primary Care Provider [phone] Cory Finley MD Primary Care Provider [phone] Encounter Details Date Type Department Care Team (Late st Contact Info) Description 02/01/2019 Transcribed Document [facility] [place] [address] ProviderCitlali MD [address] [place] [address] Social History Tobacco Use Types Packs/Day Years Used Date Smoking Tobacco: Never Assessed Sex and Gender Information Value Date Recorded Sex Assigned at Not on file Legal Sex Male 1:29 PM CDT Gender Identity Not on file Sexual Orientation Not on file documented as of this encounter Miscellaneous Notes * Cerner Conversion Note - Citlali Bhandari MD - 02/01/2019 11:08 PM CDT Patient: VALDEZ MCGOWAN EAR Age: 83 years Sex: Male : 1935 Associated Diagnoses: Ureterolithiasis Author: Theodora Garcia PA Basic Information Additional information: Chief Complaint from Nursing Triage Note : Chief Complaint 02/01/2019 21:46 EDT Chief Complaint c/o LLQ abdominal pain and left flank pain; feels like prior kidney stones; hx of BPH, HTN (did not take meds tonight) . History of Present Illness The patient presents with abdominal pain, flank pain and Patient is 83-year-old male with hypertension, CAD with open-heart and stents ??5, BPH, he presents emergency department with complaint of left sided flank pain and left lower quadrant abdominal pain that began around 4 PM. Patient reports the he has had some nausea, he says the pain is worse when he gets up and moves around he says it is mostly a dull pain but can be sharp with certain movements. Patient reports he has had kidney stones in the past. Patient also reports he had a colonoscopy last week, he says he is started on any medication for his chronic constipation, he says that his bowel movements have not gone back to normal that he is still having loose stools. Patient denies fever chills headache dizziness blurred vision cough shortness of breath chest pain vomiting dysuria hematuria numbness tingling decreased range of motion. Patient also reports that he did not take his blood pressure medicine tonight prior to arrival. The onset was 02/01/2019 16:00:00 . The course/duration of symptoms is constant and fluctuating in intensity. The character of symptoms is sharp. The degree at onset was minimal. The Location of pain at onset was left and flank. The degree at present is moderate. The Location of pain at present is left, lower, abdominal and flank. Radiating pain: none. The exacerbating factor is movement. The relieving factor is none. Therapy today: none. Risk factors consist of hypertension, age, coronary artery disease and Irritable bowel syndrome. Associated symptoms: nausea. Review of Systems Additional review of systems information: All other systems reviewed and otherwise negative. Health Status Allergies: Allergic Reactions (Selected) Severity Not Documented Crestor- Muscle spasm and muscle stiffness. Livalo- Muscle stiffness and muscle spasm. Penicillins- No reactions were documented. Pravastatin- Muscle weakness and muscle weakness. Simvastatin- Elevated lft s and elevated lft s. Tetracycline- Nausea and nausea.. Medications: (Selected) Documented Medications Documented Linzess 290 mcg oral capsule: Cap, Oral, Daily, 0 Refill(s) MiraLax: 1 Gram, Oral, BID, 0 Refill(s) Plavix 75 mg oral tablet: 1 Tab, Oral, Daily, 0 Refill(s) aspirin: 81 mg, Oral, Daily, 0 Refill(s) carvedilol 12.5 mg oral tablet: 1 Tab, Oral, BID, 60 Tab, 0 Refill(s) nitroglycerin 0.4 mg sublingual spray: 1 Julian, SubLINgual, Q5Min, PRN: for chest pain, 5 Gram, 0 Refill(s). Immunizations: Per nurse's notes. Past Medical/ Family/ Social History Medical history Reviewed as documented in chart. Surgical history: CABG. Coronary artery stenting. Left inguinal hernia repair. Hydrocele repair. Colonoscopy., Reviewed as documented in chart. Family history: Entire family history is negative., Reviewed as documented in chart. Social history: Social & Psychosocial Habits Alcohol 08/05/2013 Alcohol Use in Last Twelve Months No Home/Environment 08/20/2018 Living situation: Home/Independent Nutrition/Health 01/27/2019 Caffeine intake amount: not daily Substance Abuse 08/05/2013 Recreational Drug Use History No Recreational Drug Use Last 12 Months No Tobacco 03/08/2016 Smoking Status Former smoker 06/10/2017 Smoking Status Former smoker Years of Tobacco Use 20 Used Tobacco, but Quit Yes Month Tobacco Last Used quit in 1986 . Problem list: Active Problems (17) Arthritis CABG - Coronary artery bypass graft CAD Coronary artery disease Disorder of prostate Diverticulosis h/o Rheumatic fever History of obstructive sleep apnea HLD HTN Hyperlipidemia Hypertension Impaired vision Renal calculus Renal disease Skin cancer Stented coronary artery , per nurse's notes. Physical Examination Vital Signs Vital Signs/Vital Measures 02/01/2019 21:46 EDT Temperature Source Oral Temperature Mode Fahrenheit Temperature, Fahrenheit 98.5 Deg F Clinical Temperature, C 36.9 Deg C Peripheral Pulse Rate 60 bpm Respiratory Rate 16 Breaths/Min Systolic Blood Pressure 193 mmHg HI Diastolic Blood Pressure 84 mmHg Oxygen Saturation 98 % Oxygen Therapy Mode Room air . Measurements 02/01/2019 21:46 EDT Height Source Stated Height Entry Format [place] Height/Length, LITHUANIAN (ft) 5 ft Height/Length LITHUANIAN 6 Inch CLINICALHEIGHT 167.64 cm [place] Body Weight 62.88 kg Weight Source, ED Critical estimated dosing weight Weight Entry Format [place] Weight Greek lb 150 lb CLINICALWEIGHT 68.18 kg Body Surface Area (BSA) 1.77 m2 Body Mass Index 24.3 kg/m2 HI . Oxygen Saturation 02/01/2019 21:46 EDT Oxygen Saturation 98 % . General: Alert, no acute distress. Skin: Warm, dry, pink, intact. Head: Normocephalic, atraumatic. Neck: Supple, trachea midline. Eye: Normal conjunctiva. Ears, nose, mouth and throat: Oral mucosa moist. Cardiovascular: Regular rate and rhythm. Respiratory: Lungs are clear to auscultation, respirations are non-labored. Gastrointestinal: Soft, Non distended, Normal bowel sounds, Tenderness: Moderate, left flank, left lower quadrant, Guarding: Negative, Rebound: Negative. Musculoskeletal: Normal ROM, normal strength. Neurological: Alert and oriented to person, place, time, and situation, No focal neurological deficit observed, normal speech observed, normal coordination observed. Psychiatric: Cooperative, appropriate mood & affect. Medical Decision Making Differential Diagnosis: Abdominal pain, renal stone, ureteral stone, pancreatitis, urinary tract infection, pyelonephritis, gastroenteritis. Documents reviewed: Emergency department records, prior records. Electrocardiogram: Reviewed by NAHUM Brooke electronic atrial pacemaker at 60 bpm. Results review: Lab results : Lab Results 02/01/2019 23:00 EDT Urine Type. U CleanCatch Urine Color Yellow Urine Appearance Clear Urine Specific [place] 1.004 LOW Urine pH Dipstick 5.5 LOW Urine Leukocyte Esterase Negative Urine Nitrite Negative Urine Protein Dipstick Negative Urine Glucose Dipstick Negative Urine Ketones Dipstick Negative Urine Urobilinogen Dipstick 0.2 EU/dL Urine Bilirubin Dipstick Negative Urine Blood Dipstick Large Ur RBC 0-2 /HPF 02/01/2019 22:11 EDT Sodium Level 142 mmol/L Potassium Level 4.2 mmol/L Chloride Level 109 mmol/L Carbon Dioxide Level 24 mmol/L Anion Gap 13 Glucose Level 109 mg/dL HI Blood Urea Nitrogen 10 mg/dL Creatinine Level 0.80 mg/dL eGFR >60 mL/min/1.73m2 eGFR NonAfrican >60 mL/min/1.73m2 Bun/Creatinine 12.5 Calcium Level 8.9 mg/dL Protein Total 6.5 Gram/dL Albumin Level 3.9 Gram/dL Globulin 2.6 Gram/dL A/G Ratio 1.5 Bilirubin Total 0.5 mg/dL Alk Phos 132 Units/Liter AST 22 Units/Liter ALT 39 Units/Liter Lipase Level 136 Units/Liter Lactic Acid Level 0.9 mmol/L Troponin I Ultra <0.015 ng/mL ProBNP 460 pg/mL HI WBC 5.8 K/uL RBC 4.92 Million/uL Hgb 15.3 g/dL Hct 44.9 % MCV 91.3 fL MCH 31.1 pg MCHC 34.1 Gram/dL Platelet Count 206 K/uL MPV 11.8 fL RDW 13.0 % Neut % 69.1 % Neut # 3.97 K/uL Lymph % 16.7 % LOW Lymph # 0.96 x10(3)/uL LOW [place] % 12.0 % HI [place] # 0.69 K/uL Eos % 1.6 % Eos # 0.09 x10(3)/uL Baso % 0.3 % Baso # 0.02 x10(3)/uL Slide Review No IG# 0.02 x10(3)/uL IG% 0.30 % PT 10.2 Second(s) INR 0.9 PTT 27.8 Second(s) . Radiology results: Computed tomography, ABD, without contrast, reviewed radiologist's report, interpretation: There is a 2 mm distal left ureteral stone contributing to mild hydroureteronephrosis. Compared to January 09, 2019, no other significant interval change is demonstrated. No acute enteric, hepatobiliary, pancreatic, splenic or adrenal abnormalities are appreciated. There is redemonstration of a large circumscribed exophytic cystic right renal lesion, not well characterized without IV contrast. Tiny dependent gallstone again noted. Enlarged prostate redemonstrated. Signed by Donald Zazueta on 02/02/2019 2:03:06 AM, Eastern Time This. Impression and Plan Diagnosis Ureterolithiasis - Discharge, Medical Plan Condition: Improved, Stable. Disposition: Discharged Admit/Transfer/Discharge: Discharge (Order): Start: 02/02/2019 2:05 EDT, Discharge to: Home , Patient care transitioned to: Time: 02/02/2019 00:26:00, JANET PRO MD. Prescriptions: Prescription Morale Officer Pharmacy: Zofran 4 mg oral tablet (Prescribe): 1 Tab, Oral, Q8H, PRN: Nausea, 10 Tab, 0 Refill(s) [place] 5 mg-325 mg oral tablet (Prescribe): 1 Tab, Oral, Q4H, PRN: for pain, 12 Tab, 0 Refill(s) . Patient was given the following educational materials: Kidney Stones, Jtni-[id number]. Follow up with: DILLAN MEJIAS Within 2 to 3 days; UBALDO SMALLWOOD Within 2 to 3 days. Counseled: Patient, Regarding diagnosis, Regarding diagnostic results, Regarding treatment plan, Regarding prescription, Patient indicated understanding of instructions. Notes: L kidney stone. Pain controlled, tolerates po well. Dc'd home with rx norco and zofran, f/u with urology and clear return instructions. . Electronically signed by [facility], [facility] Conversion Plastic Technician Cerner at 01/08/2023 3:27 PM CDT documented in this encounter Plan of Treatment Not on file documented as of this encounter Visit Diagnoses Not on filedocumented in this encounter Care Teams Manugrapher Relationship Specialty Start Date End Date Dillan Mejias MD [address] [place] [address] [place] [address] PCP - General Adolescent Medicine 07/20/22 01/03/23 Cory Finley MD [address] [facility] [address] [place] [address] PCP - General Family Medicine 01/04/23 documented as of this encounter
--- OUTSIDE RECORDS SUMMARY | 2025-09-12 16:03 | XMS_ITS | Encounter Summary ---
Author Organization [employer] ([place], [place], [place], [place], [place]) Address [address] [place] [address] Care Team Providers Care Cleaner And Preparer Name Role Phone Dillan Donnelly MD Primary Care Provider [phone] Cory Finley MD Primary Care Provider [phone] Encounter Details Date Type Department Care Team (Late st Contact Info) Description 01/13/2019 Transcribed Document [facility] [place] [facility] [place] [address] ProviderCitlali MD [address] [place] [address] Social History Tobacco Use Types Packs/Day Years Used Date Smoking Tobacco: Never Assessed Sex and Gender Information Value Date Recorded Sex Assigned at Not on file Legal Sex Male 1:29 PM CDT Gender Identity Not on file Sexual Orientation Not on file documented as of this encounter Miscellaneous Notes * Cerner Conversion Note - Historical ProviderMD - 01/13/2019 4:12 PM CDT CR Abdomen 1 Vw Ordered: 01/13/2019 Auth (Verified) Reason for Exam: Constipation 01/13/2019 12:53 01/13/2019 16:12 (SITA HERNANDEZ) No further action required documented in this encounter Plan of Treatment Not on file documented as of this encounter Visit Diagnoses Not on filedocumented in this encounter Care Teams Cleaner And Preparer Relationship Specialty Start Date End Date Dillan Donnelly MD [address] [place] [address] [place] [address] PCP - General Adolescent Medicine 07/20/22 01/03/23 Cory Finley MD [address] [facility] [address] [place] [address] PCP - General Family Medicine 01/04/23 documented as of this encounter
--- OUTSIDE RECORDS SUMMARY | 2025-09-12 16:03 | XMS_ITS | Encounter Summary ---
Author Organization [facility] [facility] ([place], [place], [place], [place], [place]) Address [address] [place] [address] Care Team Providers Care Photovoltaic Fabrication Technician Name Role Phone Dillan Donnelly MD Primary Care Provider [phone] Cory Finley MD Primary Care Provider [phone] Encounter Details Date Type Department Care Team (Late st Contact Info) Description 01/26/2019 Transcribed Document [facility] Family Medicine [facility]ly [facility] [place] [address] ProviderCitlali MD [address] [place] [address] Social History Tobacco Use Types Packs/Day Years Used Date Smoking Tobacco: Never Assessed Sex and Gender Information Value Date Recorded Sex Assigned at Not on file Legal Sex Male 1:29 PM CDT Gender Identity Not on file Sexual Orientation Not on file documented as of this encounter Miscellaneous Notes * Cerner Conversion Note - Citlali Bhandari MD - 01/26/2019 3:55 PM CDT Pre Procedure Adult Entered On: 01/26/2019 15:59 EDT Performed On: 01/26/2019 15:55 EDT by Alesia Kulkarni Rn Height and Weight, Clinical Dosing Clinical Dosing Weight : 67.73 kg Weight, Pounds : 149 lb Body Surface Area (BSA) : 1.77 m2 Body Mass Index : 24.1 kg/m2 (HI) Luz Al RN - 01/27/2019 8:33 EDT Weight Source : Standing scale Weight Entry Format : Luz MaloneyBRITTANY - 01/27/2019 8:31 EDT Height Source : Stated Height Entry Format : [place] Height, Feet : 5 ft(Converted to: 152 cm, 60 Inch) Height, Inches : 6 Inch(Converted to: 0 ft 6 Inch, 15.24 cm) Clinical Height : 167.64 cm [place] Body Weight : 63 kg Alesia Kulkarni Rn - 01/26/2019 15:55 EDT Health Histories Smoking Status : Former smoker, quit more than 30 days ago Smokeless Tobacco Status : Never Alesia Kulkarni Rn - 01/26/2019 15:55 EDT Social History (As Of: 01/26/2019 15:59:54 EDT) Tobacco: Smoking Status Former smoker. (Last Updated: 03/08/2016 12:25:27 EDT by GODWIN BRENNAN RN) Smoking Status Former smoker. Years of Use: [...] 08/20/2018 07:39:11 EST by LICHA MAYFIELD PA-C) Infectious Disease History Infectious Disease History : Influenza, Measles, Mumps, Other: rehumatic fever Fever/Chills Last 48 Hours : No Travel To [place] with Travel Advisories : No Travel Outside [place] Within Last 30 Days : No Contact With Traveler to Advisory Region : No Tuberculosis Symptoms : None Alesia Kulkarni Rn - 01/26/2019 15:55 EDT Anesthesia/Transfusion History Family History of Anesthesia Reaction : Prior transfusion without reaction Transfusion History : Prior anesthesia without reaction Family History of Anesthesia Reaction : None Alesia Kulkarni Rn - 01/26/2019 15:55 EDT Functional Assessment Living Situation : Home Patient Lives With : Alone Current Home Treatments : CPAP Alesia Kulkarni Rn - 01/26/2019 15:55 EDT Psychosocial History Do You Have a History of the Following? : Patient denies history Currently in Unsafe Situation : No Tried to Harm Yourself in the Past? : No Thoughts of Harming/Killing Yourself : No Alesia Kulkarni Rn - 01/26/2019 15:55 EDT Advance Directive Patient has Advance Directive *Q : Yes, Advance Directive not with the patient Advance Directive Type : CPR directive, State form Copy Advance Directive Verified/on Chart : No Alesia Kulkarni Rn - 01/26/2019 15:55 EDT Teaching/Learning Assessment Barriers To Learning : None evident Individuals Taught : Patient Readiness to Learn : Cooperative Baseline Knowledge of Topic : Good Readiness to Learn : Explanation Learning Style Preferences Patient : None Learning Style Preferences Family : None Luz Al RN - 01/27/2019 8:33 EDT General Info Support Person/Patient Medical Practice Administrator : Yes Want Family/Rep/Phys Notified of Admit : No Emergency Contact #1 : Arabella Grier Emergency Contact #1 Emergency Contact #1 Relationship : ex Emergency Contact #2 : na Emergency Contact #2 Phone Number : na Emergency Contact #2 Relationship : na Primary Language : Malagasy Preferred Communication Mode : Verbal Communication Barrier : None Alesia Kulkarni Rn - 01/26/2019 15:55 EDT Sleep Apnea Risk Assmt BiPAP/CPAP Ordered for Home Use : Yes Hx of Obstructive Sleep Apnea Diagnosis : Yes BiPAP/CPAP Used at Home : No Reason BiPAP/CPAP Not Used at Home : unable to use Age over 50 Years Old : Yes Gender Male : Yes Alesia Kulkarni Rn - 01/26/2019 15:55 EDT Donny Scale Donny Sensory Perception : No impairment Donny Moisture : Rarely moist Donny Activity : Walks frequently Donny Mobility : No limitation Donny Nutrition : Adequate Donny Friction and Shear : No apparent problem Donny Score : 22 Alesia Kulkarni Rn - 01/26/2019 15:55 EDT Pain Assessment Pain Assessment : Initial assessment Pain Scale Goal : 0 Pain Scale Used : 0-10 Scale Luz Al RN - 01/27/2019 8:42 EDT Fall Risk Scales ABCs Fall Injury Risk Identification : None FISCHER Hx Falls Immediate/Within 3 Months : No Fischer Secondary Diagnosis : Yes FISCHER Use of Ambulatory Aid : None FISCHER IV Therapy or IV Access : Yes Fischer Gait/Transferring : Normal, bedrest, immobile Fischer Mental Status : Oriented to own ability Fischer Fall Risk Score : 35 FISCHER Fall Scale Risk Level : 25-45 Medium Risk Royal Fall Interventions : Adequate lighting, Call device within reach, Personal items within reach Shad Alesia, Rn - 01/26/2019 15:55 EDT Valuables and Belongings Valuables and Belongings : Clothing Clothing : Common streetwear Clothing Disposition : With family Luz Al RN - 01/27/2019 8:33 EDT Pain Scale Intensity : 0 Luz Al RN - 01/27/2019 8:42 EDT Image 4 - Images currently included in the form version of this document have not been included in the text rendition version of the form. Electronically signed by Ivette [facility] Conversion Air Analyst Cerner at 01/08/2023 3:08 PM CDT documented in this encounter Plan of Treatment Not on file documented as of this encounter Visit Diagnoses Not on filedocumented in this encounter Care Teams Photovoltaic Fabrication Technician Relationship Specialty Start Date End Date Dillan Donnelly MD [address] [place] [facility] [address] [place] [address] PCP - General Adolescent Medicine 07/20/22 01/03/23 Cory Finley MD [address] [place] [address] [address] [place] [address] PCP - General Family Medicine 01/04/23 documented as of this encounter
--- OUTSIDE RECORDS SUMMARY | 2025-09-12 16:03 | XMS_ITS | Encounter Summary ---
Author Organization [employer] ([place], [place], [place], [place], [place]) Address [address] [place] [address] Care Team Providers Care Oil Sprayer Name Role Phone Dillan Donnelly MD Primary Care Provider [phone] Cory Finley MD Primary Care Provider [phone] Encounter Details Date Type Department Care Team (Late st Contact Info) Description 01/13/2019 Transcribed Document [facility] Family Medicine [facility] [place] [address] ProviderCitlali MD [address] [place] [address] Social History Tobacco Use Types Packs/Day Years Used Date Smoking Tobacco: Never Assessed Sex and Gender Information Value Date Recorded Sex Assigned at Not on file Legal Sex Male 1:29 PM CDT Gender Identity Not on file Sexual Orientation Not on file documented as of this encounter Miscellaneous Notes * Cerner Conversion Note - Citlali ProviderMD - 01/13/2019 9:58 AM CDT ED Triage Entered On: 01/13/2019 10:06 EDT Performed On: 01/13/2019 10:01 EDT by Martinez Dinh RN ED Triage Across the Room Triage Date/Time : 01/13/2019 10:01 EDT Chief Complaint : pt here c/o constipation states that he was here Saturday for the same states LBM this am but very little Martinez Dinh RN - 01/13/2019 10:01 EDT DCP GENERIC CODE Tracking Acuity : 3 - Urgent Tracking Group : [facility] ED Martinez Dinh RN - 01/13/2019 10:01 EDT Mode of Arrival : Ambulatory Transported to ED by : Walk in To Room Via : Ambulate Accompanied By : Unaccompanied ED Vital Signs : Document Height & Weight : Document ED Allergies : Document ED Reason for Visit : Document Tetanus Immunization : Less than 5 years Martinez Dinh RN - 01/13/2019 10:01 EDT Infectious Disease History Infectious Disease History : Influenza, Measles, Mumps, Other: rehumatic fever Fever/Chills Last 48 Hours : No Travel To [place] with Travel Advisories : No Travel Outside [place] Within Last 30 Days : No Contact With Traveler to Advisory Region : No Tuberculosis Symptoms : None Martinez Dinh RN - 01/13/2019 10:01 EDT Vital Signs ED Temperature Source : Oral Temperature Mode : Fahrenheit Temperature, Fahrenheit : 98 Deg F Clinical Temperature, C : 36.7 Deg C Oxygen Therapy Mode : Room air Peripheral Pulse Rate : 61 bpm Respiratory Rate : 18 Breaths/Min Systolic Blood Pressure : 193 mmHg (HI) Diastolic Blood Pressure : 91 mmHg (HI) Oxygen Saturation : 98 % Martinez Dinh RN - 01/13/2019 10:01 EDT Allergy (As Of: 01/13/2019 10:06:10 EDT) Allergies (Active) Crestor Estimated Onset Date: Unspecified ; Reactions: Muscle spasm, Muscle stiffness ; Comments: Comment 1: Info obtained from Dr Jonathan burgess [place], [place] ; Created By: ZAHRA ORTEZ RPh; Reaction Status: Active ; Category: Drug ; Substance: Crestor ; Type: Allergy ; Updated By: ZAHRA ORTEZ RPh; Source: Nurse ; Reviewed Date: 01/13/2019 10:02 EDT Livalo Estimated Onset Date: Unspecified ; Reactions: Muscle stiffness, Muscle spasm ; Comments: Comment 1: Info obtained from Dr Jonathan burgess [place], [place] ; Created By: ZAHRA ORTEZ RPh; Reaction Status: Active ; Category: Drug ; Substance: Livalo ; Type: Allergy ; Updated By: ZAHRA ORTEZ RPh; Source: Nurse ; Reviewed Date: 01/13/2019 10:02 EDT penicillins Estimated Onset Date: Unspecified ; Comments: Comment 1: per pt to RN pt states that he hasn't taken it for 50 years, but it caused a high temp & high fever ; Created By: DERIAN VÁSQUEZ; Reaction Status: Active ; Category: Drug ; Substance: penicillins ; Type: Allergy ; Updated By: DERIAN VÁSQUEZ; Reviewed Date: 01/13/2019 10:02 EDT pravastatin Estimated Onset Date: Unspecified ; Reactions: muscle weakness, muscle weakness ; Created By: DERIAN VÁSQUEZ; Reaction Status: Active ; Category: Drug ; Substance: pravastatin ; Type: Allergy ; Updated By: DERIAN VÁSQUEZ; Reviewed Date: 01/13/2019 10:02 EDT simvastatin Estimated Onset Date: Unspecified ; Reactions: elevated lft s, elevated lft s ; Created By: DERIAN VÁSQUEZ; Reaction Status: Active ; Category: Drug ; Substance: simvastatin ; Type: Allergy ; Updated By: DERIAN VÁSQUEZ; Reviewed Date: 01/13/2019 10:02 EDT tetracycline Estimated Onset Date: Unspecified ; Reactions: nausea, nausea ; Created By: DERIAN VÁSQUEZ; Reaction Status: Active ; Category: Drug ; Substance: tetracycline ; Type: Allergy ; Updated By: EDRIAN VÁSQUEZ; Reviewed Date: 01/13/2019 10:02 EDT Diagnosis Control ED (As Of: 01/13/2019 10:06:10 EDT) Problems(Active) Angina (SNOMED CT :790231839 ) Name of Problem: Angina ; Recorder: HARI INFANTE RN; Confirmation: Confirmed ; Classification: Patient Stated ; Code: [id number] ; Contributor System: [employer] ; Last Updated: 03/09/2014 10:52 EDT ; Life Cycle Date: 08/07/2013 ; Life Cycle Status: Active ; Vocabulary: SNOMED CT Arthritis (SNOMED CT :0473804 ) Name of Problem: Arthritis ; Recorder: HARI INFANTE RN; Confirmation: Confirmed ; Classification: Patient Stated ; Code: [id number] ; Contributor System: [employer] ; Last Updated: 03/04/2014 19:31 EDT ; Life Cycle Date: 08/07/2013 ; Life Cycle Status: Active ; Vocabulary: SNOMED CT CABG - Coronary artery bypass graft (SNOMED CT :922662140 ) Name of Problem: CABG - Coronary artery bypass graft ; Recorder: HARI INFANTE RN; Confirmation: Confirmed ; Classification: Patient Stated ; Code: [id number] ; Contributor System: [employer] ; Last Updated: 03/09/2014 11:29 EDT ; Life Cycle Date: 08/07/2013 ; Life Cycle Status: Active ; Vocabulary: SNOMED CT CAD (SNOMED CT :22827165 ) Name of Problem: CAD ; Recorder: NANCY NUNES RN; Confirmation: Confirmed ; Classification: Medical ; Code: 54065296 ; Contributor System: PowerChart ; Last Updated: 06/27/2018 14:14 EDT ; Life Cycle Date: 04/21/2018 ; Life Cycle Status: Active ; Vocabulary: SNOMED CT Coronary artery disease (SNOMED CT :2337428054 ) Name of Problem: Coronary artery disease ; Recorder: HARI INFANTE RN; Confirmation: Confirmed ; Classification: Patient Stated ; Code: [id number] ; Contributor System: PowerChart ; Last Updated: 03/04/2014 19:31 EDT ; Life Cycle Date: 08/07/2013 ; Life Cycle Status: Active ; Vocabulary: SNOMED CT Disorder of prostate (SNOMED CT :80433720 ) Name of Problem: Disorder of prostate ; Recorder: HARI INFANTE RN; Confirmation: Confirmed ; Classification: Patient Stated ; Code: 68654272 ; Contributor System: PowerChart ; Last Updated: 03/04/2014 19:31 EDT ; Life Cycle Date: 08/07/2013 ; Life Cycle Status: Active ; Vocabulary: SNOMED CT Diverticulosis (SNOMED CT :7902532728 ) Name of Problem: Diverticulosis ; Recorder: GODWIN BRENNAN RN; Confirmation: Confirmed ; Classification: Medical ; Code: [id number] ; Contributor System: PowerChart ; Last Updated: 03/08/2016 12:23 EDT ; Life Cycle Date: 03/08/2016 ; Life Cycle Status: Active ; Vocabulary: SNOMED CT History of obstructive sleep apnea (IMO :70719759 ) Name of Problem: History of obstructive sleep apnea ; Recorder: SYSTEM, SYSTEM; Confirmation: Confirmed ; Classification: Medical ; Code: 22236915 ; Last Updated: 04/20/2018 23:59 EDT ; Life Cycle Date: 04/20/2018 ; Life Cycle Status: Active ; Vocabulary: IMO HLD (SNOMED CT :34184490 ) Name of Problem: HLD ; Recorder: NANCY NUNES RN; Confirmation: Confirmed ; Classification: Medical ; Code: 00503674 ; Contributor System: PowerChart ; Last Updated: 05/30/2018 12:56 EDT ; Life Cycle Date: 04/21/2018 ; Life Cycle Status: Active ; Vocabulary: SNOMED CT ; Comments: 04/21/2018 8:36 - NANCY NUNES RN Statin intolerance HTN (SNOMED CT :2480774832 ) Name of Problem: HTN ; Recorder: NANCY NUNES RN; Confirmation: Confirmed ; Classification: Medical ; Code: [id number] ; Contributor System: PowerChart ; Last Updated: 05/30/2018 12:58 EDT ; Life Cycle Date: 04/21/2018 ; Life Cycle Status: Active ; Vocabulary: SNOMED CT Hyperlipidemia (SNOMED CT :37544023 ) Name of Problem: Hyperlipidemia ; Recorder: HARI INFANTE RN; Confirmation: Confirmed ; Classification: Patient Stated ; Code: 55993825 ; Contributor System: PowerChart ; Last Updated: 03/04/2014 19:31 EDT ; Life Cycle Date: 08/07/2013 ; Life Cycle Status: Active ; Vocabulary: SNOMED CT Hypertension (SNOMED CT :46889086 ) Name of Problem: Hypertension ; Recorder: HARI INFANTE RN; Confirmation: Confirmed ; Classification: Patient Stated ; Code: 48925669 ; Contributor System: PowerChart ; Last Updated: 03/04/2014 19:31 EDT ; Life Cycle Date: 08/07/2013 ; Life Cycle Status: Active ; Vocabulary: SNOMED CT Impaired vision (SNOMED CT :32411777 ) Name of Problem: Impaired vision ; Recorder: HARI INFANTE RN; Confirmation: Confirmed ; Classification: Patient Stated ; Code: 49434305 ; Contributor System: PowerChart ; Last Updated: 03/04/2014 19:31 EDT ; Life Cycle Date: 08/07/2013 ; Life Cycle Status: Active ; Vocabulary: SNOMED CT Renal calculus (SNOMED CT :044050280 ) Name of Problem: Renal calculus ; Recorder: HARI INFANTE RN; Confirmation: Confirmed ; Classification: Patient Stated ; Code: 875247060 ; Contributor System: PowerChart ; Last Updated: 03/04/2014 19:31 EDT ; Life Cycle Date: 08/07/2013 ; Life Cycle Status: Active ; Vocabulary: SNOMED CT Renal disease (SNOMED CT :585662033 ) Name of Problem: Renal disease ; Recorder: HARI INFANTE RN; Confirmation: Confirmed ; Classification: Patient Stated ; Code: 823682625 ; Contributor System: PowerChart ; Last Updated: 03/04/2014 19:31 EDT ; Life Cycle Date: 08/07/2013 ; Life Cycle Status: Active ; Vocabulary: SNOMED CT Skin cancer (SNOMED CT :6116466575 ) Name of Problem: Skin cancer ; Recorder: HARI INFANTE RN; Confirmation: Confirmed ; Classification: Patient Stated ; Code: 9287458347 ; Contributor System: PowerChart ; Last Updated: 03/04/2014 19:31 EDT ; Life Cycle Date: 08/07/2013 ; Life Cycle Status: Active ; Vocabulary: SNOMED CT Stented coronary artery (SNOMED CT :5953882647 ) Name of Problem: Stented coronary artery ; Recorder: HARI INFANTE RN; Confirmation: Confirmed ; Classification: Patient Stated ; Code: [id number] ; Contributor System: [employer] ; Last Updated: 03/04/2014 19:31 EDT ; Life Cycle Date: 08/07/2013 ; Life Cycle Status: Active ; Vocabulary: SNOMED CT Diagnoses(Active) Constipation Date: 01/13/2019 ; Diagnosis Type: Reason For Visit ; Confirmation: Complaint of ; Clinical Dx: Constipation ; Classification: Medical ; Clinical Service: Emergency medicine ; Code: PNED ; Probability: 0 ; Diagnosis Code: [id number] ED Height and Weight Height Source : Stated Height Entry Format : [place] Height, Feet : 5 ft(Converted to: 152 cm, 60 Inch) Height, Inches : 6 Inch(Converted to: 0 ft 6 Inch, 15.24 cm) Clinical Height : 167.64 cm Weight Source, ED : Critical estimated dosing weight Weight Entry Format : [place] Weight, Pounds : 155 lb Clinical Dosing Weight : 70.45 kg Body Surface Area (BSA) : 1.8 m2 Body Mass Index : 25.1 kg/m2 (HI) [place] Body Weight (IBW) : 62.88 kg Martinez Dinh RN - 01/13/2019 10:01 EDT documented in this encounter Plan of Treatment Not on file documented as of this encounter Visit Diagnoses Not on filedocumented in this encounter Care Teams Oil Sprayer Relationship Specialty Start Date End Date Dillan Donnelly MD [address] [place] [address] [place] [address] PCP - General Adolescent Medicine 07/20/22 01/03/23 Cory Finley MD [address] [facility] [address] [place] [address] PCP - General Family Medicine 01/04/23 documented as of this encounter
--- OUTSIDE RECORDS SUMMARY | 2025-09-12 16:03 | XMS_ITS | Clinical Summary ---
Author Organization [facility] Address [address] [place] [address] Care Team Providers Care Camera Technician Name Role Phone Danisha Nguyen TR Primary Care Provider [phone] Allergies Active Allergy Reactions Criticality Noted Date Comments Niacin Unknown - Low Severity Low 01/16/2023 Penicillins Unknown - Low Severity Low 11/24/2012 1per pt to RN pt states that he hasn't taken it for 50 years, but it caused a high temp & high fever Pitavastatin Unknown - Low Severity Low 01/16/2023 Other reaction(s): Muscle spasm, Muscle stiffness 3Info obtained from Dr Pitts' office [place], [place] Pravastatin Unknown - Low Severity Low 01/16/2023 Other reaction(s): muscle weakness, muscle weakness Rosuvastatin Unknown - Low Severity Low 01/16/2023 Other reaction(s): Muscle spasm, Muscle stiffness 2Info obtained from Dr Pitts' office [place], [place] Simvastatin Unknown - Low Severity Low 01/16/2023 Other reaction(s): elevated lft s, elevated lft s Tetracycline Nausea And Vomiting Low 08/15/2022 Colesevelam Unknown - Low Severity Low 01/16/2023 Medications nitroglycerin (NITROSTAT) 0.[address] 1 tablet under the tongue Every 5 (Five) Minutes As Needed for Chest Pain. 30 tablet 5 023 Active aspirin 81 MG EC tabletIndications:P ure hypercholesterolemi a, unspecified Take 1 tablet by mouth Daily. Active alfuzosin (UROXATRAL) 10 MG 24 hr tabletIndications:P ure hypercholesterolemi a, unspecified Take 1 tablet by mouth Daily. 023 Active carvedilol (COREG) 25 MG tablet TAKE 1 AND 1/2 TABLETS TWICE DAILY 270 tablet 3 025 Active tamsulosin (FLOMAX) 0.4 MG capsule 24 hr capsule 025 Active apixaban (ELIQUIS) 5 MG tablet tablet Take 1 tablet by mouth 2 (Two) Times a Day. 180 tablet 3 025 Active pantoprazole (PROTONIX) 40 MG EC tablet Take 1 tablet by mouth Daily for 90 days. 30 tablet 2 08/25/20 25 10:49 AM EST 025 2025 Active donepezil (ARICEPT) 10 MG tablet Take 1 tablet by mouth. 025 2025 Active ferrous sulfate 325 (65 FE) MG tabletIndications:G astrointestinal hemorrhage, unspecified gastrointestinal hemorrhage type Take 1 tablet by mouth Daily With Breakfast. 30 tablet 11 Active Evolocumab (Repatha SureClick) solution auto-injector SureClick injectionIndication s:Pure hypercholesterolemi a, unspecified INJECT 140MG (1 PEN) SUBCUTANEOUSLY EVERY TWO WEEKS 2 mL 11 025 2024 Discontin ued(Stop Taking at Discharge ) donepezil (ARICEPT) 5 MG tablet TAKE ONE TABLET BY MOUTH EVERY DAY FOR memory loss 025 2024 Discontin ued(Dose adjustmen t) sucralfate (CARAFATE) 1 g tablet Take 1 tablet by mouth 4 (Four) Times a Day Before Meals & at Bedtime for 10 doses. 10 tablet 08/25/20 25 10:49 AM EST 025 2024 Active Problems Problem Noted Date Diagnosed Date GI bleed 08/20/2025 Hypertension, essential 07/27/2025 Assessment & Plan (07/27/2025 11:50 AM EST): {Hypertension is (optional):5546314067} Pure hypercholesterolemia, unspecified Assessment & Plan (07/27/2025 11:50 AM EST): {Hyperlipidemia A/P Block (Optional):4869397447} Atrial fibrillation - Remote transmission on 07/20/2025 [...] 77, and triglycerides 65 - Continue Repatha Nonrheumatic mitral valve regurgitation 02/07/20 Assessment & Plan (07/27/2025 11:50 AM EST): Bilateral carotid artery stenosis 02/06/2023 Sleep apnea 01/16/2023 Overview (01/16/2023): ABH 9; intolerant to CPAP/BiPAP Assessment & Plan (01/16/2023 3:48 PM EDT): Intolerant to CPAP/BiPAP therapy. He is not interested in restarting at this time. He denies excessive daytime sleepiness or napping. Hypertension 01/16/2023 Assessment & Plan (01/16/2023 3:47 PM EDT): Hypertension is well-controlled.. Continue current treatment regimen. Dietary sodium restriction. Blood pressure will be reassessed at the next regular appointment. Hyperlipidemia 01/16/2023 CAD (coronary artery disease) 01/16/2023 Assessment & Plan (07/27/2025 11:50 AM EST): {Coronary Artery Disease (OPTIONAL):57748} Assessment & Plan (07/30/2024 5:28 PM EST): Coronary Artery Disease (OPTIONAL): Coronary artery disease is stable. Continue current treatment regimen. Cardiac status will be reassessed in 6 months. Assessment & Plan (01/16/2023 3:45 PM EDT): Coronary artery disease is Stable. Continue current treatment regimen. Regular aerobic exercise. Continue current medications. Cardiac status will be reassessed at next office visit.. Encounter for pre-operative cardiovascular clear ance 01/16/2023 Assessment & Plan (01/16/2023 3:44 PM EDT): Patient is stable from a cardiac standpoint, may proceed with surgery without further cardiac testing.He has an acceptable cardiac risk for the planned procedure. Blockers should not be held in the perioperative period. Continue aspirin 81 mg. He has obstructive sleep apnea, appropriate anesthesia precautions should be taken. Pacemaker 01/16/2023 Assessment & Plan (07/27/2025 11:50 AM EST): Assessment & Plan (07/30/2024 5:28 PM EST): Good battery life and lead function. In remote monitoring. Can recheck again in 6 months. Assessment & Plan (01/16/2023 3:49 PM EDT): Remote device check on 12/10/2022 revealed normal device function. Battery life is at 53%, 5.42 years remaining. 1 event noted which was a high atrial rate that lasted only 8 seconds. No other events noted Encounters Date Type Department Care Team Description 5 Telephone [facility] [address] [place] [phone] Anita Alvarenga MD 5 12:30 PM EST Office Visit [facility] [address] [place] [place] [phone] Anita Alvarenga MD Persistent atrial fibrillation (Primary Dx); Coronary artery disease involving big sandy heart without angina pectoris, unspecified vessel or lesion type; Pacemaker [Z95.0]; Hypertension, essential; Gastrointestinal hemorrhage, unspecified gastrointestinal hemorrhage type; Chronic hypernatremia; Pulmonary nodule 1 cm or greater in diameter; Iron deficiency anemia due to chronic blood loss 5 Travel 5 Telephone [employer] [facility] DEPT [address] [place] [address] Navigator, Lung 5 Readmission Management [facility] [address] [place] [phone] Katina Matute RN 5 3:28 PM EST Anesthesia Event [facility] [address] [place] [phone] Luc Pedroza MD Kramer, David P., MD 5 1:29 PM EST - 5 2:06 PM EST Surgery [facility] [address] [place] [phone] Yair Wagner MD ESOPHAGOGASTRODUODENOSCOPY [76801 (CPT )] 5 2:44 PM EST - 5 11:37 AM EST Hospital Encounter [address] [place] [address] Daniel Mackey MD Gerhardstein, Donna C, MD Bansal, Arvind K, MD Villaran, Yuri, MD Russell, Marc P, MD Acute GI bleeding (Primary Dx); Acute blood loss anemia; Hypotension, unspecified hypotension type; Anticoagulated Discharge Disposition: Home or Self Care 5 Travel 5 Telephone [facility] [address] [place] [place] [phone] Jessie Walton MA 5 Refill [facility] [address] [place] [phone] Eliza Sandhu APRN Med Refill 5 Telephone [facility] [place] [phone] Anita Alvarenga MD Atrial Fibrillation 5 11:30 AM EST Office Visit [facility] [place] [phone] Eliza Sandhu APRN Persistent atrial fibrillation (Primary Dx); Coronary artery disease involving big sandy heart without angina pectoris, unspecified vessel or lesion type; Pacemaker [Z95.0]; Nonrheumatic mitral valve regurgitation; Hypertension, essential; Pure hypercholesterolemia, unspecified 5 Travel 5 Telephone [facility] [place] [phone] Anita Alvarenga MD 5 Telephone [facility] [address] [place] [address] [place] [phone]WAESPE- INFO 5 Telephone [facility] [place] [phone] Anita Alvarenga MD new onset afib from Last 3 Months Family History Medical History Relation Name Comments Alzheimer's disease Mother Relation Name Status Comments Father (Age 91) Mother (Age 94) Social History Tobacco Use Types Packs/Day Years [...] or training? Not on file Preferred Language Czech 08/23/2025 Sex and Gender Information Value Date Recorded Sex Assigned at Not on file Legal Sex Male 1:10 PM EST Gender Identity Not on file Sexual Orientation Not on file Last Filed Vital Signs Vital Sign Reading Time Taken Comments Blood Pressure 118/64 09/06/2025 12:37 PM EST Pulse 76 09/06/2025 12:37 PM EST Temperature 36.9 C (98.4 F) 08/25/2025 4:30 AM EST Respiratory Rate 18 08/25/2025 4:30 AM EST Oxygen Saturation 98% 09/06/2025 12:37 PM EST Inhaled Oxygen Concentration - - Weight 64.9 kg (143 lb) 09/06/2025 12:37 PM EST Height 167.6 cm (5' 6 ) 09/06/2025 12:37 PM EST Body Mass Index 23.08 09/06/2025 12:37 PM EST Plan of Treatment Upcoming Encounters Date Type Department Care Team (Late st Contact Info) Description 09/20/2025 1:15 PM EST Office Visit [facility] [address] [place] [address] [place] [phone] Huang Valdez MD [address] [place] [address] [place] [address] 09/29/2025 2:45 PM EST Office Visit [facility] [address] [facility] [place] [phone] Willow Rodgers APRN [address] [place] [address] 09/29/2025 2:45 PM EST Clinical Support No Requirements [facility] [address] [place] [phone] Health Maintenance Due Date Last Done Comments TDAP/TD VACCINES (1 - Tdap) 1954 Pneumococcal Vaccine 50+ (1 of 1 - PCV) 1987 ZOSTER VACCINE (1 of 2) 1987 RSV Vaccine - Adults (1 - 1- dose 75+ series) 2012 COVID-19 Vaccine (3 - Modern a risk series) 09/08/2021 08/11/2021, 12/15/2020, 11/17/2020 ANNUAL WELLNESS VISIT 10/21/2022 INFLUENZA VACCINE 04/23/2025 08/11/2021 LIPID PANEL 03/08/2026 03/08/2025, 08/07/2023 Medical Devices Implanted Type Area Immigration Attorney Device Identifier Shelf Expiration Date Model / Serial / Lot Dev Clip Endo [id number] Contrl Rot 235cm - [id number] Implanted:Qty : 1 on 08/20/2025 by Yair Wagner MD at [facility] Implant N/A: Stomach [employer] [id number] / / [id number] Dev Clip Endo [id number] Contrl Rot 235cm - [id number] Implanted:Qty : 1 on 08/20/2025 by Yair Wagner MD at [facility] Implant N/A: Stomach [employer] 05/07/2028 [id number] / / [id number] Dev Clip Endo [id number] Contrl Rot 235cm - [id number] Implanted:Qty : 1 on 08/20/2025 by Yair Wagner MD at [facility] Implant N/A: Stomach [employer] 03/15/2028 [id number] / / [id number] Procedures Procedure Name Priority Date/Time Associated Diagnosis Comments SCANNED - LABS 09/03/2025 CBC AND DIFFERENTIAL Routine 08/25/2025 5:48 AM EST CBC WITH AUTO DIFFERENTIAL Routine 08/25 5:48 AM EST ECG 12-LEAD STAT 08/25/2025 [...] Lateral leads Referred By: Confirmed By: CBC AND DIFFERENTIAL Routine 08/24/2025 5:36 AM EST CBC WITH AUTO DIFFERENTIAL Routine 08/24 5:36 AM EST BASIC METABOLIC PANEL Routine 08/24/2025 5:36 AM EST SCANNED - TELEMETRY 08/23/2025 10:05 AM EST HEMOGLOBIN AND HEMATOCRIT, BLOOD Timed 08/23/2025 7:22 AM EST CBC AND DIFFERENTIAL Routine 08/23/2025 2:57 AM EST CBC WITH AUTO DIFFERENTIAL Routine 08/23 2:57 AM EST MAGNESIUM Routine 08/23/2025 2:57 [...] FINGERSTICK Routine 025 5:20 AM EST CBC AND DIFFERENTIAL Routine 08/21/2025 3:14 AM EST CBC WITH AUTO DIFFERENTIAL Routine 08/21 3:14 AM EST PHOSPHORUS Routine 08/21/2025 3:14 AM EST MAGNESIUM Routine 08/21/2025 3:14 AM EST BASIC METABOLIC PANEL Routine 08/21/2025 3:14 AM EST HEMOGLOBIN AND HEMATOCRIT, BLOOD Timed 08/21/2025 12:26 AM EST POCT GLUCOSE FINGERSTICK Routine 025 11:14 PM EST HEMOGLOBIN AND HEMATOCRIT, BLOOD Timed 08/20/2025 7:40 PM EST POCT GLUCOSE FINGERSTICK Routine 025 5:23 PM EST IA ESOPHAGOGASTRODUODENOSCOP Y TRANSORAL DIAGNOSTIC 08/20/2025 3:28 PM EST UPPER GI ENDOSCOPY 08/20/2025 3:03 PM EST HEMOGLOBIN AND HEMATOCRIT, BLOOD Timed 08/20/2025 12:18 PM EST POCT GLUCOSE FINGERSTICK Routine 025 12:04 PM EST CBC AND DIFFERENTIAL STAT 08/20/2025 7:35 AM EST CBC WITH AUTO DIFFERENTIAL STAT 08/20 7:35 AM EST PHOSPHORUS Routine 08/20/2025 7:35 AM EST MAGNESIUM Routine 08/20/2025 7:35 AM EST COMPREHENSIVE METABOLIC PANEL Routine 7:35 AM EST POCT GLUCOSE FINGERSTICK Routine 025 6:21 AM EST TRANSFUSE RED BLOOD CELLS STAT 2024 1:39 AM EST CALCIUM, IONIZED STAT 08/20/2025 12:33 AM EST PHOSPHORUS STAT 08/20/2025 12:33 AM EST MAGNESIUM STAT 08/20/2025 12:33 AM EST BASIC METABOLIC PANEL STAT 08/20/2025 12:33 AM EST CBC (NO DIFF) STAT 08/20/2025 12:33 AM EST LACTIC ACID, REFLEX STAT 08/20/2025 12:33 AM EST POCT GLUCOSE [...] POCT CREATININE STAT 08/19/2025 3:16 PM EST LIGHT BLUE TOP STAT 08/19/2025 3:08 PM EST HWANG TOP STAT 08/19/2025 3:08 PM EST GOLD TOP - SST STAT 08/19/2025 3:08 PM EST LAVENDER TOP STAT 08/19/2025 3:08 PM EST DK GREEN TOP STAT 08/19/2025 3:08 PM EST CBC AND DIFFERENTIAL STAT 08/19/2025 3:08 PM EST PROTIME-INR STAT 08/19/2025 3:08 PM EST PROCALCITONIN STAT 08/19/2025 3:08 PM EST LACTIC ACID, PLASMA STAT 08/19/2025 3:08 PM EST CBC WITH AUTO DIFFERENTIAL STAT 08/19 3:08 PM EST TROPONIN STAT 08/19/2025 3:08 PM EST MAGNESIUM STAT 08/19/2025 3:08 PM EST COMPREHENSIVE METABOLIC PANEL STAT 3:08 PM EST RAINBOW DRAW STAT 08/19/2025 3:08 PM EST ECG 12-LEAD STAT 08/19/2025 3:01 PM EST SCANNED - TELEMETRY 08/19/2025 3:01 PM EST REMOTE DEVICE CHECK 08/11/2025 2:00 AM EST REMOTE DEVICE CHECK 08/04/2025 2:00 AM EST REMOTE DEVICE CHECK 07/27/2025 10:11 AM EST SCANNED EKG 07/23/2025 SCANNED - LABS 07/23/2025 SCANNED - IMAGING 07/23/2025 SCANNED - IMAGING 07/23/2025 REMOTE DEVICE CHECK 07/21/2025 2:00 AM EDT LIPID PANEL Routine 03/08/2025 Pure hypercholester olemia, unspecified Hypertension, essential Coronary artery disease involving big sandy heart without angina pectoris, unspecified vessel or lesion type from Last 3 Months or Most Recently Relevant to Health Maintenance Results * LABS SCANNED (09/03/2025) Only the most recent of2 resultswithin the time period is included. us Anita Alvarenga MD LAB BLOOD ORDERABLES Final R esult * (ABNORMAL) CBC Auto Differential (08/25/2025 5:48 AM EST) Only the most recent of6 resultswithin the time period is included. WBC 7.91 3.40 - 10.80 10*3/mm3 08/25/2025 6:19 AM EST [facility] RBC 3.10(L) 4.14 - 5.80 10*6/mm3 08/25/2025 6:19 AM EST [facility] Hemoglobin 8.7(L) 13.0 - 17.7 g/dL 08/25/2025 6:19 AM [facility] Hematocrit 27.9(L) 37.5 - 51.0 % 08/25/2025 6:19 AM EST [facility] MCV 90.0 79.0 - 97.0 fL 08/25/2025 6:19 AM EST [facility] MCH 28.1 26.6 - 33.0 pg 08/25/2025 6:19 AM EST [facility] MCHC 31.2(L) 31.5 - 35.7 g/dL 08/25/2025 6:19 AM EST [facility] RDW 15.0 12.3 - 15.4 % 08/25/2025 6:19 AM EST [facility] RDW-SD 48.2 37.0 - 54.0 fl 08/25/2025 6:19 AM [facility] MPV 12.2(H) 6.0 - 12.0 fL 08/25/2025 6:19 AM [facility] Platelets 175 140 - 450 10*3/mm3 08/25/2025 6:19 AM [facility] Neutrophil % 67.7 42.7 - 76.0 % 08/25/2025 6:19 AM [facility] Lymphocyte % 14.2(L) 19.6 - 45.3 % 08/25/2025 6:19 AM [facility] Monocyte % 15.5(H) 5.0 - 12.0 % 08/25/2025 6:19 AM [facility] Eosinophil % 1.9 0.3 - 6.2 % 08/25/2025 6:19 AM [facility] Basophil % 0.4 0.0 - 1.5 % 08/25/2025 6:19 AM [facility] Immature Grans % 0.3 0.0 - 0.5 % 08/25/2025 6:19 AM [facility] Neutrophils, Absolute 5.36 1.70 - 7.00 10*3/mm3 08/25/2025 6:19 AM [facility] Lymphocytes, Absolute 1.12 0.70 - 3.10 10*3/mm3 08/25/2025 6:19 AM [facility] Monocytes, Absolute 1.23(H) 0.10 - 0.90 10*3/mm3 08/25/2025 6:19 AM [facility] Eosinophils, Absolute 0.15 0.00 - 0.40 10*3/mm3 08/25/2025 6:19 AM [facility] Basophils, Absolute 0.03 0.00 - 0.20 10*3/mm3 08/25/2025 6:19 AM [facility] Immature Grans, Absolute 0.02 0.00 - 0.05 10*3/mm3 08/25/2025 6:19 AM [facility] nRBC 0.0 0.0 - 0.2 /100 WBC 08/25/2025 6:19 AM EST [facility] Blood Venipuncture / Unknown 08/25/2025 5:48 AM EST 08/25/2025 6:08 AM EST us Thomas Segura MD LAB BLOOD ORDERABLES Final Resu lt [facility]
[address] [place] [address], * (ABNORMAL) Basic Metabolic Panel (08/24/2025 5:36 AM EST) Only the most recent of5 resultswithin the time period is included. Glucose 97 65 - 99 mg/dL 08/24/2025 7:08 AM EST [facility] BUN 12.1 8.0 - 23.0 mg/dL 08/24/2025 7:08 AM [facility] Creatinine 0.75(L) 0.76 - 1.27 mg/dL 08/24/2025 7:08 AM [facility] Sodium 140 136 - 145 mmol/L 08/24/2025 7:08 AM [facility] Potassium 3.9 3.5 - 5.2 mmol/L 08/24/2025 7:08 AM [facility] Chloride 107 98 - 107 mmol/L 08/24/2025 7:08 AM [facility] CO2 25.1 22.0 - 29.0 mmol/L 08/24/2025 7:08 AM [facility] Calcium 8.8 8.6 - 10.5 mg/dL 08/24/2025 7:08 AM [facility] BUN/Creatinine Ratio 16.1 7.0 - 25.0 08/24/2025 7:08 AM [facility] Anion Gap 7.9 5.0 - 15.0 mmol/L 08/24/2025 7:08 AM [facility] eGFR 87.3 >60.0 mL/min/1.7 3 08/24/2025 7:08 AM EST [facility] Blood Venipuncture / Unknown 08/24/2025 5:36 AM EST 08/24/2025 6:37 AM EST Narrative [facility] - 08/24/2025 7:08 AM EST GFR [...] Segura MD LAB BLOOD ORDERABLES Final Resu [facility]
[address] [place] [address], * Telemetry Scan (08/23/2025 10:05 AM EST) Only the most recent of5 resultswithin the time period is included. [facility] ECG ORDERABLES Final Result * (ABNORMAL) Hemoglobin & Hematocrit, Blood (08/23/2025 7:22 AM EST) Only the most recent of11 resultswithin the time period is included. Hemoglobin 7.7(L) 13.0 - 17.7 g/dL 08/23/2025 8:05 AM EST [facility] Hematocrit 24.1(L) 37.5 - 51.0 % 08/23/2025 8:05 AM EST [facility] Blood Venipuncture / Unknown 08/23/2025 7:22 AM EST 08/23/2025 8:01 AM EST James Tineo MD LAB BLOOD ORDERABLES Final Re sult Performing Organization Address City/[facility] Co de Phone Number [facility]
[address] [place] [address], * Magnesium (08/23/2025 2:57 AM EST) Only the most recent of6 resultswithin the time period is included. Magnesium 2.2 1.6 - 2.4 mg/dL 08/23/2025 4:17 AM EST [facility] Blood Venipuncture / Unknown 08/23/2025 2:57 AM EST 08/23/2025 3:47 AM EST James Tineo MD LAB BLOOD ORDERABLES Final Re sult Performing Organization Address [facility] de Phone Number [facility]
[address] [place] [address], * Potassium (08/22/2025 4:11 PM EST) Potassium 4.8 3.5 - 5.2 mmol/L 08/22/2025 4:47 PM EST [facility] Blood Venipuncture / Unknown 08/22/2025 4:11 PM EST 08/22/2025 4:19 PM EST James Tineo MD LAB BLOOD ORDERABLES Final Re sult Performing Organization Address City/[facility] Co de Phone Number [facility]
[address] [place] [address], * Phosphorus (08/22/2025 6:38 AM EST) Only the most recent of4 resultswithin the time period is included. Phosphorus 2.5 2.5 - 4.5 mg/dL 08/22/2025 7:14 AM EST [facility] Blood Venipuncture / Unknown 08/22/2025 6:38 AM EST 08/22/2025 6:49 AM EST Yair Wagner MD LAB BLOOD ORDERABLES Final Resul t Performing Organization Address City/[facility] Co de Phone Number [facility]
[address] [place] [address], * POC Glucose Once (08/22/2025 5:31 AM EST) Only the most recent of8 resultswithin the time period is included. Glucose 110 70 - 130 mg/dL 08/22/2025 5:33 AM EST [facility] Comment:Serial Number: [id number]: [id number] Blood 08/22/2025 5:31 AM EST 08/22/2025 5:33 AM EST James Tineo MD POINT OF CARE TEST ORDERABLES Final Result Performing Organization Address [facility] de Phone Number [facility]
[address] [place] [address], * ECG 12 Lead Pre-Op / Pre-Procedure (08/22/2025 3:03 AM EST) Only the most recent of3 resultswithin the time period is included. QT Interval 322 ms BH ECG QTC [...] ventricular pacemaker Confirmed by RAMIN ZAPATA MD ([id number]) on 08/22/2025 4:19:06 PM Referred By: Confirmed [...] ventricular pacemaker Confirmed by RAMIN ZAPATA MD ([id number]) on 08/22/2025 4:19:06 PM Referred By: Confirmed By: RAMIN ZAPATA MD us Hao Fajardo MD ECG ORDERABLES Final Result ECG * Prepare RBC, 2 Units (08/21/2025 12:10 PM EST) Product Code [id number] [facility] Unit Number [id number] [facility] UNIT ABO A [facility] UNIT RH NEG [facility] Crossmatch Interpretation Compatible [facility] Dispense Status PT [facility] Blood Expiration Date [facility] Blood Type Barcode 0600 [facility] Product Code [id number] [facility] Unit Number [id number] [facility] UNIT ABO A [facility] UNIT RH NEG [facility] Crossmatch Interpretation Compatible [facility] Dispense Status PT [facility] Blood Expiration Date [id number] [facility] Blood Type Barcode 0600 [facility] Other Topography unknown / Unknown 08/19/2025 4:44 PM EST us Daniel Mackey MD BLOOD BANK PRODUCT ORDERABLE S Edited Result - Final [facility]
[address] [place] [address], * Upper GI Endoscopy (08/20/2025 3:03 PM EST) us Yair Wagner MD INTERFACE NEEDS Final Result * (ABNORMAL) Comprehensive Metabolic Panel (08/20/2025 7:35 AM EST) Only the most recent of2 resultswithin the time period is included. Glucose 87 65 - 99 mg/dL 08/20/2025 7:59 AM EST [facility] BUN 22.9 8.0 - 23.0 mg/dL 08/20/2025 7:59 AM EST [facility] Creatinine 0.95 0.76 - 1.27 mg/dL 08/20/2025 7:59 AM EST [facility] Sodium 142 136 - 145 mmol/L 08/20/2025 7:59 AM EST [facility] Potassium 4.3 3.5 - 5.2 mmol/L 08/20/2025 7:59 AM EST [facility] Chloride 113(H) 98 - 107 mmol/L 08/20/2025 7:59 AM EST [facility] CO2 19.5(L) 22.0 - 29.0 mmol/L 08/20/2025 7:59 AM EST [facility] Calcium 8.8 8.6 - 10.5 mg/dL 08/20/2025 7:59 AM EST [facility] Total Protein 4.9(L) 6.0 - 8.5 g/dL 08/20/2025 7:59 AM [facility] Albumin 3.6 3.5 - 5.2 g/dL 08/20/2025 7:59 AM [facility] ALT (SGPT) 8 1 - 41 U/L 08/20/2025 7:59 AM [facility] AST (SGOT) 16 1 - 40 U/L 08/20/2025 7:59 AM [facility] Alkaline Phosphatase 86 39 - 117 U/L 08/20/2025 7:59 AM [facility] Total Bilirubin 2.1(H) 0.0 - 1.2 mg/dL 08/20/2025 7:59 AM [facility] Globulin 1.3 gm/dL 08/20/2025 7:59 AM [facility] Comment:Calculated Result A/G Ratio 2.8 g/dL 08/20/2025 7:59 AM [facility] BUN/Creatinine Ratio 24.1 7.0 - 25.0 08/20/2025 7:59 AM [facility] Anion Gap 9.5 5.0 - 15.0 mmol/L 08/20/2025 7:59 AM [facility] eGFR 77.5 >60.0 mL/min/1.7 3 08/20/2025 7:59 AM [facility] Blood Venipuncture / Unknown 08/20/2025 7:35 AM EST 08/20/2025 7:39 AM EST [facility] - 08/20/2025 7:59 AM EST [...] does not include race as a factor My V[facility] MD LAB BLOOD ORDERABLES Fin al Result [facility]
[address] [place] [address], * Transfuse RBC Infuse Each Unit Over: 2H (08/20/2025 3:50 AM EST) Only the most recent of2 resultswithin the time period is included. Daniel Mackey MD BLOOD TRANSFUSION ORDERABLES Final Result * STAT Lactic Acid, Reflex (08/20/2025 12:33 AM EST) Only the most recent of2 resultswithin the time period is included. Lactate 1.3 0.5 - 2.0 mmol/L 08/20/2025 1:17 AM EST [facility] Comment:Falsely depressed re sults may occur on samples drawn from patients receiving N-Acetylcysteine (NAC) or Metamizole. Blood Venipuncture / Unknown 08/20/2025 12:33 AM EST 08/20/2025 12:49 AM EST Daniel Mackey MD LAB BLOOD ORDERABLES Final R esult Performing Organization Address City/[facility]/ZIP Co de Phone Number [facility]
[address] [place] [address], * (ABNORMAL) CBC (No Diff) (08/20/2025 12:33 AM EST) WBC 5.88 3.40 - 10.80 10*3/mm3 08/20/2025 1:00 AM EST [facility] RBC 2.51(L) 4.14 - 5.80 10*6/mm3 08/20/2025 1:00 AM EST [facility] Hemoglobin 6.8(LL) 13.0 - 17.7 g/dL 08/20/2025 1:00 AM [facility] Hematocrit 22.7(L) 37.5 - 51.0 % 08/20/2025 1:00 AM [facility] MCV 90.4 79.0 - 97.0 fL 08/20/2025 1:00 AM [facility] MCH 27.1 26.6 - 33.0 pg 08/20/2025 1:00 AM [facility] MCHC 30.0(L) 31.5 - 35.7 g/dL 08/20/2025 1:00 AM [facility] RDW 14.2 12.3 - 15.4 % 08/20/2025 1:00 AM [facility] RDW-SD 46.2 37.0 - 54.0 fl 08/20/2025 1:00 AM [facility] MPV 12.1(H) 6.0 - 12.0 fL 08/20/2025 1:00 AM [facility] Platelets 137(L) 140 - 450 10*3/mm3 08/20/2025 1:00 AM [facility] Blood Venipuncture / Unknown 08/20/2025 12:33 AM EST 08/20/2025 12:50 AM EST Marcela Graves MD LAB BLOOD ORDERABLES Final Result [facility]
[address] [place] [address], * Calcium, Ionized (08/20/2025 12:33 AM EST) Ionized Calcium 1.22 1.15 - 1.30 mmol/L 08/20/2025 1:46 AM EST [facility] Blood Venipuncture / Unknown 08/20/2025 12:33 AM EST 08/20/2025 12:49 AM EST Marcela Graves MD LAB BLOOD ORDERABLES Final Result Performing Organization Address [facility] de Phone Number [facility]
[address] [phone] * (ABNORMAL) Urinalysis, Microscopic Only - Urine, Catheter (08/19/2025 6:25 PM EST) RBC, UA 3-5(A) None Seen, 0-2 /HPF 08/19/2025 7:22 PM EST [facility] WBC, UA 0-2 None Seen, 0-2 /HPF 08/19/2025 7:22 PM EST [facility] Bacteria, UA None Seen None Seen /HPF 08/19/2025 7:22 PM EST [facility] Squamous Epithelial Cells, UA 0-2 None Seen, 0-2 /HPF 08/19/2025 7:22 PM EST [facility] Hyaline Casts, UA 13-20 None Seen /LPF 08/19/2025 7:22 PM EST [facility] Mucus, UA Moderate/2+(A) None Seen, Trace /HPF 08/19/2025 7:22 PM EST [facility] Methodology Manual Light Microscopy 08/19/2025 7:22 PM EST [facility] Urine Urinary catheter / Unknown Collection / Unknown 08/19/2025 6:25 PM EST 08/19/2025 6:42 PM EST Daniel Mackey MD URINE ORDERABLES Final Resul t Performing Organization Address City/[facility] Co de Phone Number [facility]
[address] [place] [address], * (ABNORMAL) Urinalysis With Microscopic If Indicated (No Culture) - Urine, Catheter (08/19/2025 6:25PM EST) Color, UA Dark Yellow(A) Yellow, Straw 08/19/2025 7:12 PM EST [facility] Appearance, UA Cloudy(A) Clear 08/19/2025 7:12 PM EST [facility] pH, UA 5.5 5.0 - 8.0 08/19/2025 7:12 PM EST [facility] Specific [place], UA >1.030(H) 1.005 - 1.030 08/19/2025 7:12 PM EST [facility] Glucose, UA Negative Negative 08/19/2025 7:12 PM EST [facility] Ketones, UA Trace(A) Negative 08/19/2025 7:12 PM EST [facility] Bilirubin, UA Negative Negative 08/19/2025 7:12 PM EST [facility] Blood, UA Negative Negative 08/19/2025 7:12 PM EST [facility] Protein, UA Trace(A) Negative 08/19/2025 7:12 PM EST [facility] Leuk Esterase, UA Trace(A) Negative 08/19/2025 7:12 PM EST [facility] Nitrite, UA Negative Negative 08/19/2025 7:12 PM EST [facility] Urobilinogen, UA 2.0 E.U./dL(A) 0.2 - 1.0 E.U./dL 08/19/2025 7:12 PM EST [facility] Urine Urinary catheter / Unknown Collection / Unknown 08/19/2025 6:25 PM EST 08/19/2025 6:42 PM EST us Daniel Mackey MD URINE ORDERABLES Final Resul t [facility]
[address] [place] [address], * Blood Culture - Blood, Arm, Right (08/19/2025 5:26 PM EST) Only the most recent of2 resultswithin the time period is included. Blood Culture No growth at 5 days 08/24/2025 7:46 PM EST [facility] Blood Structure of right upper limb / Unknown Venipuncture / Unknown 08/19/2025 5:26 PM EST 08/19/2025 7:41 PM EST Daniel Mackey MD MICROBIOLOGY - GENERAL ORDER AURA Final Result Performing Organization Address City/[facility]/ZIP Co de Phone Number [facility]
[address] [place] [address], * ABO RH Specimen Verification (08/19/2025 5:17 PM EST) ABO Type A 08/19/2025 5:41 PM EST [facility] RH type Negative 08/19/2025 5:41 PM EST [facility] Blood Venipuncture / Unknown 08/19/2025 5:17 PM EST 08/19/2025 5:31 PM EST Daniel Mackey MD BLOOD BANK TEST ORDERABLES F inal Result Performing Organization Address City/[facility]/ZIP Co de Phone Number [facility]
[address] [place] [address], * (ABNORMAL) High Sensitivity Troponin T 1Hr (08/19/2025 4:08 PM EST) HS Troponin T 24(H) <22 ng/L 08/19/2025 4:36 PM EST [facility] Troponin T Numeric Delta -1 ng/L 08/19/2025 4:36 PM EST [facility] Troponin T % Delta -4 Abnormal if >/= 20% 08/19/2025 4:36 PM EST [facility] Blood Venipuncture / Unknown 08/19/2025 4:08 PM EST 08/19/2025 4:14 PM EST Narrative [facility] - 08/19/2025 4:36 PM EST High [...] ORDERABLES Final R esult Performing Organization Address City/[facility]/ZIP Co de Phone Number [facility]
[address] [place] [address], * Type & Screen (08/19/2025 4:00 PM EST) ABO Type A 08/19/2025 5:15 PM EST [facility] RH type Negative 08/19/2025 5:15 PM EST [facility] Antibody Screen Negative 08/19/2025 5:15 PM EST [facility] T&S Expiration Date 08/22/2025 11:59:59 PM 08/19/2025 5:15 PM EST [facility] Blood Line / Unknown 08/19/2025 4: 00 PM EST 08/19/2025 4:44 PM EST Daniel Mackey MD BLOOD BANK TEST ORDERABLES E dited Result - Final Performing Organization Address [facility] Co de Phone Number [facility]
[address] [place] [address], * CT Angiogram Abdomen Pelvis (08/19/2025 3:47 [...] MD 08/19/2025 4:24 PM EST Workstation ID: [id number] Kyle 08/19/2025 4:[address] ANGIOGRAM CHEST, [...] hip osteoarthritis. No pelvic fracture. Procedure Note MouserDion MD - 08/19/2025 CT ANGIOGRAM CHEST, CT [...] MD 08/19/2025 4:24 PM EST Workstation ID: [id number] us Daniel Mackey MD IMG CT ORDERABLES [...] MD 08/19/2025 4:24 PM EST Workstation ID: [id number] Narrative 08/19/2025 4:[address] ANGIOGRAM [...] hip osteoarthritis. No pelvic fracture. Procedure Note Dion Rai MD - 08/19/2025 CT ANGIOGRAM CHEST, CT [...] MD 08/19/2025 4:24 PM EST Workstation ID: [id number] us Daniel Mackey MD IMG CT ORDERABLES [...] MD 08/19/2025 4:00 PM EST Workstation ID: [id number] Narrative 08/19/2025 4:[address] HEAD [...] MD 08/19/2025 4:00 PM EST Workstation ID: [id number] us Daniel Mackey MD IM CT ORDERABLES [...] MD 08/19/2025 4:00 PM EST Workstation ID: [id number] Narrative 08/19/2025 4:[address] HEAD [...] MD 08/19/2025 4:00 PM EST Workstation ID: [id number] us Daniel Mackey MD IMG CT ORDERABLES Final Resu lt * POC Creatinine (08/19/2025 3:16 PM EST) Creatinine 1.20 0.60 - 1.30 mg/dL 08/19/2025 3:33 PM EST [facility] Comment:Serial Number: [id number] 1Operator: [id number] Blood 08/19/2025 3:16 PM EST 08/19/2025 3:33 PM EST Daniel Mackey MD POINT OF CARE TEST ORDERABLE S Final Result Performing Organization Address [facility]/ZIP Co de Phone Number [facility]
[address] [place] [address], * Hwang Top (08/19/2025 3:08 PM EST) Extra Tube Hold for add-ons. 08/19/2025 3:31 PM EST [facility] Comment:Auto resulted. Blood Venipuncture / Unknown 08/19/2025 3:08 PM EST 08/19/2025 3:20 PM EST Daniel Mackey MD LAB BLOOD ORDER ONLY Final R esult Performing Organization Address [facility] Co de Phone Number [facility]
[address] [place] [address], * Gold Top - SST (08/19/2025 3:08 PM EST) Extra Tube Hold for add-ons. 08/19/2025 3:31 PM EST [facility] Comment:Auto resulted. Blood Venipuncture / Unknown 08/19/2025 3:08 PM EST 08/19/2025 3:20 PM EST Daniel Mackey MD LAB BLOOD ORDER ONLY Final R esult Performing Organization Address City/[facility]/ZIP Co de Phone Number [facility]
[address] [place] [address], * Green Top (Gel) (08/19/2025 3:08 PM EST) Extra Tube Hold for add-ons. 08/19/2025 3:31 PM EST [facility] Comment:Auto resulted. Blood Venipuncture / Unknown 08/19/2025 3:08 PM EST 08/19/2025 3:20 PM EST Daniel Mackey MD LAB BLOOD ORDER ONLY Final R esult [facility]
[address] [place] [address], * Procalcitonin (08/19/2025 3:08 PM EST) Pathologist [facility] Procalcitonin 0.05 0.00 - 0.25 ng/mL 08/19/2025 7:35 PM EST [facility] Blood Venipuncture / Unknown 08/19/2025 3:08 PM EST 08/19/2025 3:20 PM EST Narrative [facility] - 08/19/2025 7:35 PM EST As [...] Day 4 values are available. Refer to http://www.sduedq-vpv-jiompipukx.com Change in PCT <=80% A decrease of [...] diagnosed with severe sepsis or septic shock. us Daniel Mackey MD LAB BLOOD ORDERABLES Final R esult Performing Organization Address City/[facility]/ZIP Co de Phone Number [facility]
[address] [place] [address], * Lavender Top (08/19/2025 3:08 PM EST) Extra Tube hold for add-on 08/19/2025 3:31 PM EST [facility] Comment:Auto resulted Blood Venipuncture / Unknown 08/19/2025 3:08 PM EST 08/19/2025 3:20 PM EST us Daniel Mackey MD LAB BLOOD ORDER ONLY Final R esult Performing Organization Address [facility] Co de Phone Number [facility]
[address] [place] [address], * Light Blue Top (08/19/2025 3:08 PM EST) Extra Tube Hold for add-ons. 08/19/2025 3:31 PM EST [facility] Comment:Auto resulted Blood Venipuncture / Unknown 08/19/2025 3:08 PM EST 08/19/2025 3:20 PM EST us Daniel Mackey MD LAB BLOOD ORDER ONLY Final R esult Performing Organization Address City/[facility] Co de Phone Number [facility]
[address] [place] [address], * (ABNORMAL) High Sensitivity Troponin T (08/19/2025 3:08 PM EST) HS Troponin T 25(H) <22 ng/L 08/19/2025 3:41 PM EST [facility] Blood Venipuncture / Unknown 08/19/2025 3:08 PM EST 08/19/2025 3:20 PM EST Narrative [facility] - 08/19/2025 3:41 PM EST High [...] Final R esult [facility]
[address] [place] [address], * (ABNORMAL) Protime-INR (08/19/2025 3:08 PM EST) Pathologist [facility] Protime 23.8(H) 12.2 - 15.3 Seconds 08/19/2025 6:02 PM EST [facility] INR 1.98(H) 0.89 - 1.12 08/19/2025 6:02 PM EST [facility] Blood Venipuncture / Unknown 08/19/2025 3:08 PM EST 08/19/2025 3:20 PM EST My [facility] MD LAB BLOOD ORDERABLES Fin al Result [facility]
[address] [place] [address], * (ABNORMAL) Lactic Acid, Plasma (08/19/2025 3:08 PM EST) Lactate 3.5(HH) 0.5 - 2.0 mmol/L 08/19/2025 6:23 PM EST [facility] Comment:Falsely depressed re sults may occur on samples drawn from patients receiving N-Acetylcysteine (NAC) or Metamizole. Blood Venipuncture / Unknown 08/19/2025 3:08 PM EST 08/19/2025 3:20 PM EST us Daniel Mackey MD LAB BLOOD ORDERABLES Final R esult [facility]
[address] [place] [address], * Remote Device Check (08/11/2025 2:00 AM EST) Only the most recent of4 resultswithin the time period is included. Date Time Interrogation Session [id number] [facility] Type Interrogation Session Remote Scheduled [facility] Implantable Pulse Generator Immigration Attorney [facility] Implantable Pulse Generator Type IPG [facility] Implantable Pulse Generator Model 2272 Assurity MRI(TM) [facility] Implantable Pulse Generator Serial Number [id number] [facility] Implantable Pulse Generator Implant Date [id number] [facility] Battery Remaining Percentage 28.00 % [facility] Battery Remaining Longevity 23.0 mo [facility] Battery Voltage 2.930 [facility] Battery BRICKLAYER SUPERVISOR Trigger 2.600 [facility] Battery Status Middle of Service [facility] Charly Statistic RA Percent Paced 92.00 [facility] Charly Statistic RV Percent Paced 3.10 [facility] Atrial Tachy Statistic AT/AF [place] Percent 7.00 [facility] Lead Channel RA Sensing Intrinsic Amplitude 2.300 [facility] Lead Channel Setting RA Sensing Sensitivity 0.50 [facility] Lead Channel RA Impedance Value 350 [facility] Lead Channel RA Pacing Threshold Amplitude 0.750 [facility] Lead Channel RA Pacing Threshold Pulse Width 0.5 [facility] [employer] [facility] Lead Channel RA Measurements Date and Time [id number] [facility] Lead Channel Setting RA Pacing Amplitude 1.750 [facility] Lead Channel Setting RA Pacing Pulse Width 0.5 [facility] Lead Channel RV Sensing Intrinsic Amplitude 12.000 [facility] Lead Channel Setting RV Sensing Sensitivity 2.00 [facility] Lead Channel RV Impedance Value 340 [facility] Lead Channel Setting RV Pacing Amplitude 5.000 [facility] Lead Channel Setting RV Pacing Pulse Width 0.5 [facility] Charly Setting Mode (NBG Code) DDDR [facility] Charly Setting Lower Rate Limit 60 [facility] Charly Setting AT Mode Switch Rate 180 [facility] Charly Setting Maximum Tracking Rate 120 [facility] Charly Setting Maximum Sensor Rate 120 [facility] Charly Setting PAV Delay 250 [facility] Charly Setting DAISY Delay 250 [facility] Lead Channel Setting RA Sensing Polarity Bipolar [facility] Lead Channel Setting RV Sensing Polarity Bipolar [facility] Lead Channel Setting RA Pacing Polarity Bipolar [facility] Lead Channel Setting RV Pacing Polarity Bipolar [facility] Lead Channel RA Pacing Threshold Polarity Bipolar [facility] Lead Channel RV Pacing Threshold Polarity Bipolar [facility] 08/11/2025 2:00 AM EST us Anita Alvarenga MD CV IMPLANTABLE CARDIAC DEVIC E Final Result [facility] * ECG Scan (07/23/2025) us Anita Alvarenga MD ECG ORDERABLES Final Result * IMAGING SCANNED (07/23/2025) Only the most recent of2 resultswithin the time period is included. Anatomical Region Laterality Modality Radiographic Sammie ging us Anita Alvarenga MD IMG DIAGNOSTIC IMAGING ORDER AURA Final Result * Lipid Panel (03/08/2025) Blood us Anita Alvarenga MD LAB BLOOD ORDERABLES Final R esult [facility]
[address] [place] [address], from Last 3 Months or Most Recently Relevant to Health Maintenance Insurance MEDICARE A & B Member Subscriber Plan / Payer ( fective 2002-Present) Name:Valdez Grier Member ID:[id number] Relation to Subscriber:Self Name:Valdez Grier Subscriber ID:[id number] Payer ID:[id number] Group ID:Not on file Type:Not on file Address: [facility] [id number] Advance Directives Documents on File Type Date Recorded Patient Railcar Carpenter Expl anation POWER OF COAL HAULER OPERATOR - SCAN 08/26/2025 1:23 PM DURABLE POWER OF COAL HAULER OPERATOR, BHLEX, 06/04/2017 POWER OF COAL HAULER OPERATOR - SCAN 07/29/2024 11:26 AM POWER OF COAL HAULER OPERATOR Care Teams Camera Technician Relationship Specialty Start Date End Date Danisha Nguyen APRN [address] [place] [address] PCP - General Family Medicine 02/05/24
--- OUTSIDE RECORDS SUMMARY | 2025-09-12 16:03 | XMS_ITS | Encounter Summary ---
Author Organization [employer] ([place], [place], [place], [place], [place]) Address [address] [place] [address] Care Team Providers Care Electric Refrigerator Preparer Name Role Phone Dillan Donnelly MD Primary Care Provider [phone] Cory Finley MD Primary Care Provider [phone] Encounter Details Date Type Department Care Team (Late st Contact Info) Description 02/02/2019 Transcribed Document [facility] [place] [facility] [place] [address] ProviderCitlali MD [address] [place] [address] [id number] Social History Tobacco Use Types Packs/Day Years Used Date Smoking Tobacco: Never Assessed Sex and Gender Information Value Date Recorded Sex Assigned at Not on file Legal Sex Male 1:29 PM CDT Gender Identity Not on file Sexual Orientation Not on file documented as of this encounter Miscellaneous Notes * Cerner Conversion Note - Citlali Bhandari MD - 02/02/2019 2:15 AM CDT ED Discharge Entered On: 02/02/2019 2:18 EDT Performed On: 02/02/2019 2:15 EDT by Chad Murphy Rn Discharge Process Patient Disposition : Discharge Personal Belongings With Patient : Yes Patient Education Completed : Yes Teaching Evaluation : Verbalizes understanding IV Discontinued : Yes Nursing Documentation Completed : Yes Chad Murphy Rn - 02/02/2019 2:15 EDT ED Discharge Discharge To : Home with ambulatory/outpatient follow-up Mode Of Departure : Private vehicle Accompanied By : Spouse Discharge Instructions Reviewed With, Opportunity For Questions Given : Patient, Spouse Prescriptions Given to Patient : Yes Number of Prescriptions Given : 2 Chad Murphy Rn - 02/02/2019 2:15 EDT documented in this encounter Plan of Treatment Not on file documented as of this encounter Visit Diagnoses Not on filedocumented in this encounter Care Teams Electric Refrigerator Preparer Relationship Specialty Start Date End Date Dillan Donnelly MD [address] [place] [facility] [address] [place] [address] PCP - General Adolescent Medicine 07/20/22 01/03/23 Cory Finley MD [address] [facility] [address] [place] [address] PCP - General Family Medicine 01/04/23 documented as of this encounter
--- OUTSIDE RECORDS SUMMARY | 2025-09-12 16:03 | XMS_ITS | Encounter Summary ---
Author Organization [facility] [employer] ([place], [place], [place], [place], [place]) Address [address] [place] [address] Care Team Providers Care Machine Shorthand Reporter Name Role Phone Dillan Donnelly MD Primary Care Provider [phone] Cory Finley MD Primary Care Provider [phone] Encounter Details Date Type Department Care Team (Late st Contact Info) Description 01/27/2019 Transcribed Document [facility] [place] [address] ProviderCitlali MD [address] [place] [address] [id number] Social History Tobacco Use Types Packs/Day Years Used Date Smoking Tobacco: Never Assessed Sex and Gender Information Value Date Recorded Sex Assigned at Not on file Legal Sex Male 1:29 PM CDT Gender Identity Not on file Sexual Orientation Not on file documented as of this encounter Miscellaneous Notes * Cerner Conversion Note - Citalli ProviderMD - 01/27/2019 9:30 AM CDT [facility] Endo PreOp Summary Primary Physician: CHIQUI CHUN MD Finalized Date/Time: 01/27/19 08:49:45 Pt. Name: VALDEZ MCGOWAN MALIK /Sex: 1935 Male Med Rec #: [id number] Physician: CHIQUI CHUN MD Financial #: [id number] Pt. Type: O Room/Bed: / Admit/Disch: 05/07/19 08:06:00 - Institution: [facility] Endo PreOp Case Times Entry 1 In Preop 01/27/19 08:30:00 Ready for Holding n/a Room Patient Ready for 01/27/19 08:49:00 Surgery Patient Out of Preop 01/27/19 08:49:00 Patient Out of n/a Holding Room Last Modified By: Luz Al RN 01/27/19 08:49:42 [facility] Endo PreOp Case Times Audit 01/27/19 08:49:42 Ground Water Technician: JASPREET Modifier: [email or web address] <+> 1 Patient Out of Preop <+> 1 Patient Ready for Surgery Finalized By: Luz Al, RN Document Signatures Signed By: Luz Al RN 01/27/19 08:49 Electronically signed by Ivette [facility] Conversion Charge Account Clerk Cerner at 01/08/2023 3:22 PM CDT documented in this encounter Plan of Treatment Not on file documented as of this encounter Visit Diagnoses Not on filedocumented in this encounter Care Teams Machine Shorthand Reporter Relationship Specialty Start Date End Date Dillan Donnelly MD [address] [place] [address] PCP - General Adolescent Medicine 07/20/22 01/03/23 Cory Finley MD [address] [facility] [address] [place] [address] PCP - General Family Medicine 01/04/23 documented as of this encounter
--- OUTSIDE RECORDS SUMMARY | 2025-09-12 16:03 | XMS_ITS | Encounter Summary ---
Author Organization [employer] ([place], [place], [place], [place], [place]) Address [address] [place] [address] Care Team Providers Care Lawn Care Professional Name Role Phone Dillan Donnelly MD Primary Care Provider [phone] Cory Finley MD Primary Care Provider [phone] Encounter Details Date Type Department Care Team (Late st Contact Info) Description 05/21/2021 Transcribed Document [facility] [place] [facility] [place] [address] ProviderCitlali MD [address] [place] [address] Social History Tobacco Use Types Packs/Day Years Used Date Smoking Tobacco: Never Assessed Sex and Gender Information Value Date Recorded Sex Assigned at Not on file Legal Sex Male 1:29 PM CDT Gender Identity Not on file Sexual Orientation Not on file documented as of this encounter Miscellaneous Notes * Cerner Conversion Note - Citlali Bhandari MD - 05/21/2021 2:38 AM CDT Patient: VALDEZ MCGOWAN Age: 85 years Sex: Male : 1935 Associated Diagnoses: Palpitations; Peripheral edema Author: RUSTAM MENDOZA MD-EMR Basic Information Time seen: Date 05/21/2021, Immediately upon arrival. History source: Patient. Arrival mode: Private vehicle, walking. History limitation: None. Additional information: Chief Complaint from Nursing Triage Note : Chief Complaint 05/21/2021 2:17 EDT Chief Complaint pt to ER c/o palpitations. states his heart feels like it is skipping beats . denies chest pain, soa at this time. has hx of triple bypass, 5 cardiac stents, pacemaker. (Modified) . History of Present Illness The patient presents with palpitations. The onset was 3 hours ago. The course/duration of symptoms is improving. Character of symptoms skipping beats. The degree at onset was moderate. The degree at present is minimal. The exacerbating factor is none. The relieving factor is none. Risk factors consist of hypertension, coronary artery disease, atrial fibrillation and pacemaker. Prior episodes: occasional. Therapy today: none. Associated symptoms: nausea, denies chest pain, denies dizziness and denies shortness of breath. Review of Systems Constitutional symptoms: Negative except as documented in HPI. Skin symptoms: Negative except as documented in HPI. Eye symptoms: Negative except as documented in HPI. ENMT symptoms: Negative except as documented in HPI. Respiratory symptoms: Negative except as documented in HPI. Cardiovascular symptoms: Palpitations. Gastrointestinal symptoms: Nausea. Genitourinary symptoms: Negative except as documented in HPI. Musculoskeletal symptoms: Negative except as documented in HPI. Neurologic symptoms: Negative except as documented in HPI. Psychiatric symptoms: Negative except as documented in HPI. Endocrine symptoms: Negative except as documented in HPI. Hematologic/Lymphatic symptoms: Negative except as documented in HPI. Allergy/immunologic symptoms: Negative except as documented in HPI. [...] s. Tetracycline- Nausea and nausea.. Medications: (Selected) Prescriptions Prescribed Zofran 4 mg oral tablet: 1 Tab, Oral, Q8H, PRN: Nausea, 10 Tab, 0 Refill(s) Documented Medications Documented Linzess 290 mcg oral capsule: Cap, Oral, Daily, 0 Refill(s) MiraLax: 1 Gram, Oral, BID, 0 Refill(s) Plavix 75 mg oral tablet: 1 Tab, Oral, Daily, 0 Refill(s) aspirin: 81 mg, Oral, Daily, 0 Refill(s) carvedilol 12.5 mg oral tablet: 1 Tab, Oral, BID, 60 Tab, 0 Refill(s) nitroglycerin 0.4 mg sublingual spray: 1 [place], SubLINgual, Q5Min, PRN: for chest pain, 5 Gram, 0 Refill(s). Past Medical/ Family/ Social History Surgical history: CABG. Coronary artery stenting. Left inguinal hernia repair. Hydrocele repair. Colonoscopy.. Family history: Entire family history is negative.. [...] Physical Examination Vital Signs Vital Signs/Vital Measures 05/21/2021 2:17 EDT Blood Pressure Location Arm, right upper Blood Pressure Source Non-Invasive BP Device Systolic Blood Pressure 153 mmHg HI Diastolic Blood Pressure 79 mmHg Temperature Source Oral Temperature Mode Fahrenheit Temperature, Fahrenheit 98.4 Deg F Clinical Temperature, C 36.9 Deg C Peripheral Pulse Rate 70 bpm Respiratory Rate 16 Breaths/Min Oxygen Saturation 97 % Oxygen Therapy Mode Room air . Measurements 05/21/2021 2:17 EDT Height Source Stated Height Entry Format Fabius Height/Length, DJIBOUTIAN (ft) 5 ft Height/Length DJIBOUTIAN 6 Inch CLINICALHEIGHT 167.64 cm [place] Body Weight 62.88 kg Weight Source, ED Critical estimated dosing weight Weight Entry Format Fabius Weight Faroese lb 160 lb CLINICALWEIGHT 72.73 kg Body Surface Area (BSA) 1.82 m2 Body Mass Index 25.9 kg/m2 HI . Oxygen Saturation 05/21/2021 2:17 EDT Oxygen Saturation 97 % . General: Alert, no acute distress. Skin: Warm, dry, pink, intact. Head: Normocephalic, atraumatic. Neck: Supple, trachea midline, no tenderness, no JVD, no carotid bruit. Cardiovascular: Regular rate and rhythm, No murmur, Normal peripheral perfusion, Edema: Bilateral, lower extremity, 1+, pitting. Respiratory: Lungs are clear to auscultation, respirations are non-labored, breath sounds are equal, Symmetrical chest wall expansion. Chest wall: No tenderness, No deformity. Gastrointestinal: Soft, Nontender, Non distended, Normal bowel sounds, No organomegaly. Neurological: Alert and oriented to person, place, time, and situation, No focal neurological deficit observed. Lymphatics: No lymphadenopathy. Psychiatric: Cooperative. Medical Decision Making Differential Diagnosis:: Atrial fibrillation, premature ventricular contraction, electrolyte abnormality. Documents reviewed: Emergency department nurses' notes. Electrocardiogram: Time 05/21/2021 02:16:00, rate 68, normal sinus rhythm, No ST changes, no ectopy, normal NH & QRS intervals, EP Interp, unchanged since 2019. Results review: Lab results : Lab Results 05/21/2021 2:35 EDT Sodium Level 140 mmol/L Potassium Level 4.1 mmol/L Chloride Level 112 mmol/L Carbon Dioxide Level 23 mmol/L Anion Gap 9 Glucose Level 135 mg/dL HI Blood Urea Nitrogen 18 mg/dL Creatinine Level 1.10 mg/dL eGFR >60 mL/min/1.73m2 eGFR NonAfrican >60 mL/min/1.73m2 Bun/Creatinine 16.4 Calcium Level 8.6 mg/dL Protein Total 6.2 Gram/dL LOW Albumin Level 3.4 Gram/dL Globulin 2.8 Gram/dL A/G Ratio 1.2 Bilirubin Total 0.3 mg/dL Alk Phos 100 Units/Liter AST 32 Units/Liter ALT 42 Units/Liter Magnesium Level 2.2 mg/dL Phosphorus 3.1 mg/dL Troponin I Ultra <0.015 ng/mL ProBNP 999 pg/mL HI WBC 6.1 K/uL RBC 3.62 Million/uL LOW Hgb 9.8 g/dL LOW Hct 31.7 % LOW MCV 87.6 fL MCH 27.1 pg MCHC 30.9 Gram/dL LOW Platelet Count 236 K/uL MPV 11.6 fL RDW 14.6 % . Chest X-Ray: Time reported 05/21/2021 02:53:00, no acute disease process, interpretation by Emergency Physician. Reexamination/ Reevaluation Time: 05/21/2021 03:22:00 . Notes: His maker interrogation with no acute findings. No palpitations seen here. Symptoms likely secondary to anxiety. Person who is with patient says he has been very anxious and gets more anxious at night. He has been dealing with back pain that has been secondary sciatica recently and this is made symptoms worse. He is asking for something to help with edema of his lower extremities. Plan short course of Lasix, recommend patient follow-up with his a operator and orthopedic surgeon.. Impression and Plan Diagnosis Palpitations - Discharge, Medical Peripheral edema - Discharge, Medical Plan Condition: Improved. Disposition: Discharged Admit/Transfer/Discharge: Discharge (Order): Start: 05/21/2021 3:23 EDT, Discharge to: Home. Prescriptions: Prescription [facility]: Lasix 20 mg oral tablet (Prescribe): 1 Tab, Oral, Daily, for 3 Day(s), 3 Tab, 0 Refill(s). Patient was given the following educational materials: Edema, Palpitations. Follow up with: ; ADRIANO MONTELONGO Within 2 to 3 days; LIVAN JAFFE Within 2 to 3 days. Counseled: Patient, Family, Regarding diagnosis, Regarding diagnostic results, Regarding treatment plan, Regarding prescription, Patient indicated understanding of instructions. documented in this encounter Plan of Treatment Not on file documented as of this encounter Visit Diagnoses Not on filedocumented in this encounter Care Teams Lawn Care Professional Relationship Specialty Start Date End Date Dillan Donnelly MD [address] [place] [address] [place] [address] PCP - General Adolescent Medicine 07/20/22 01/03/23 Cory Finley MD [address] [facility] [address] [place] [address] PCP - General Family Medicine 01/04/23 documented as of this encounter
--- OUTSIDE RECORDS SUMMARY | 2025-09-12 16:03 | XMS_ITS | Encounter Summary ---
Author Organization [facility] Address [address] [place] [address] Care Team Providers Care Repairer Welding [employer] Equipment Name Role Phone Danisha Nguyen TR Primary Care Provider [phone] Encounter Details Date Type Department Care Team (Latest Contact Info) Description 09/06/2025 Travel Social History Tobacco Use Types Packs/Day [...] or training? Not on file Preferred Language Jordanian 08/23/2025 Sex and Gender Information Value Date Recorded Sex Assigned at Not on file Legal Sex Male 1:10 PM EST Gender Identity Not on file Sexual Orientation Not on file documented as of this encounter Plan of Treatment Upcoming Encounters Date Type Department Care Team (Late st Contact Info) Description 09/20/2025 1:15 PM EST Office Visit [facility] PRIMARY CARE [address] [place] [address] [place] [address] Huang Valdez MD [address] [place] [address] [place] [address] 09/29/2025 2:45 PM EST Office Visit [facility] CARDIOLOGY [address] [place] [address] [place] [id number] Willow Rodgers APRN [address] [place] [address] 09/29/2025 2:45 PM EST Clinical Support No Requirements [facility] CARDIOLOGY [address] [place] [address] [place] [id number] documented as of this encounter Visit Diagnoses Not on filedocumented in this encounter Care Teams Repairer Welding Systems And Equipment Relationship Specialty Start Date End Date Danisha Nguyen APRN [address] [place] [address] PCP - General Family Medicine 02/05/24 documented as of this encounter
--- OUTSIDE RECORDS SUMMARY | 2025-09-12 16:03 | XMS_ITS | Encounter Summary ---
Author Organization [employer] ([place], [place], [place], [place], [place]) Address [address] [place] [address] Care Team Providers Care Conservation Assistant Name Role Phone Dillan Donnelly MD Primary Care Provider [phone] Cory Finley MD Primary Care Provider [phone] Encounter Details Date Type Department Care Team (Late st Contact Info) Description 02/01/2019 Transcribed Document [facility] [place] [address] ProviderCitlali MD [address] [place] [address] Social History Tobacco Use Types Packs/Day Years Used Date Smoking Tobacco: Never Assessed Sex and Gender Information Value Date Recorded Sex Assigned at Not on file Legal Sex Male 1:29 PM CDT Gender Identity Not on file Sexual Orientation Not on file documented as of this encounter Miscellaneous Notes * Cerner Conversion Note - Citlali Bhandari MD - 02/01/2019 9:38 PM CDT ED Triage Entered On: 02/01/2019 21:50 EDT Performed On: 02/01/2019 21:46 EDT by Piedad Morelos RN ED Triage Across the Room Triage Date/Time : 02/01/2019 21:46 EDT Chief Complaint : c/o LLQ abdominal pain and left flank pain; feels like prior kidney stones; hx of BPH, HTN (did not take meds tonight) Piedad Morelos RN - 02/01/2019 21:46 EDT DCP GENERIC CODE Tracking Acuity : 3 - Urgent Tracking Group : [facility] ED Piedad Morelos RN - 02/01/2019 21:46 EDT Mode of Arrival : Ambulatory Transported to ED by : Private vehicle To Room Via : Ambulate Accompanied By : Significant other ED Vital Signs : Document Height & Weight : Document ED Allergies : Document ED Reason for Visit : Document Tetanus Immunization : Less than 5 years Piedad Morelos RN - 02/01/2019 21:46 EDT Infectious Disease History Infectious Disease History : Influenza, Measles, Mumps, Other: rehumatic fever Fever/Chills Last 48 Hours : No Travel To Regions with Travel Advisories : No Travel Outside [place] Within Last 30 Days : No Contact With Traveler to Advisory Region : No Tuberculosis Symptoms : None Piedad Morelos RN - 02/01/2019 21:46 EDT Vital Signs ED Temperature Source : Oral Temperature Mode : Fahrenheit Temperature, Fahrenheit : 98.5 Deg F ED Pain : Yes Clinical Temperature, C : 36.9 Deg C Oxygen Therapy Mode : Room air Peripheral Pulse Rate : 60 bpm Respiratory Rate : 16 Breaths/Min Systolic Blood Pressure : 193 mmHg (HI) Diastolic Blood Pressure : 84 mmHg Oxygen Saturation : 98 % Piedad Morelos RN - 02/01/2019 21:46 EDT Allergy (As Of: 02/01/2019 21:50:22 EDT) Allergies (Active) Crestor Estimated Onset Date: Unspecified ; Reactions: Muscle spasm, Muscle stiffness ; Comments: Comment 1: Info obtained from Dr Jonathan burgess [place], [place] ; Created By: ZAHRA ORTEZ RPh; Reaction Status: Active ; Category: Drug ; Substance: Crestor ; Type: Allergy ; Updated By: ZAHRA ORTEZ RPh; Source: Nurse ; Reviewed Date: 02/01/2019 21:48 EDT Livalo Estimated Onset Date: Unspecified ; Reactions: Muscle stiffness, Muscle spasm ; Comments: Comment 1: Info obtained from Dr Jonathan burgess [place], [place] ; Created By: ZAHRA ORTEZ RPh; Reaction Status: Active ; Category: Drug ; Substance: Livalo ; Type: Allergy ; Updated By: ZAHRA ORTEZ RPh; Source: Nurse ; Reviewed Date: 02/01/2019 21:48 EDT penicillins Estimated Onset Date: Unspecified ; Comments: Comment 1: per pt to RN pt states that he hasn't taken it for 50 years, but it caused a high temp & high fever ; Created By: DERIAN VÁSQUEZ; Reaction Status: Active ; Category: Drug ; Substance: penicillins ; Type: Allergy ; Updated By: DERIAN VÁSQUEZ; Reviewed Date: 02/01/2019 21:48 EDT pravastatin Estimated Onset Date: Unspecified ; Reactions: muscle weakness, muscle weakness ; Created By: DERIAN VÁSQUEZ; Reaction Status: Active ; Category: Drug ; Substance: pravastatin ; Type: Allergy ; Updated By: DERIAN VÁSQUEZ; Reviewed Date: 02/01/2019 21:48 EDT simvastatin Estimated Onset Date: Unspecified ; Reactions: elevated lft s, elevated lft s ; Created By: DERIAN VÁSQUEZ; Reaction Status: Active ; Category: Drug ; Substance: simvastatin ; Type: Allergy ; Updated By: DERIAN VÁSQUEZ; Reviewed Date: 02/01/2019 21:48 EDT tetracycline Estimated Onset Date: Unspecified ; Reactions: nausea, nausea ; Created By: DERIAN VÁSQUEZ; Reaction Status: Active ; Category: Drug ; Substance: tetracycline ; Type: Allergy ; Updated By: DERIAN VÁSQUEZ; Reviewed Date: 02/01/2019 21:48 EDT Diagnosis Control ED (As Of: 02/01/2019 21:50:22 EDT) Problems(Active) Arthritis (SNOMED CT :4904942 ) Name of Problem: Arthritis ; Recorder: HARI INFANTE RN; Confirmation: Confirmed ; Classification: Patient Stated ; Code: [id number] ; Contributor System: ActionFlow ; Last Updated: 03/04/2014 19:31 EDT ; Life Cycle Date: 08/07/2013 ; Life Cycle Status: Active ; Vocabulary: SNOMED CT CABG - Coronary artery bypass graft (SNOMED CT :469008473 ) Name of Problem: CABG - Coronary artery bypass graft ; Recorder: HARI INFANTE RN; Confirmation: Confirmed ; Classification: Patient Stated ; Code: [id number] ; Contributor System: [employer]ral LabsChart ; Last Updated: 03/09/2014 11:29 EDT ; Life Cycle Date: 08/07/2013 ; Life Cycle Status: Active ; Vocabulary: SNOMED CT CAD (SNOMED CT :01973522 ) Name of Problem: CAD ; Recorder: NANCY NUNES RN; Confirmation: Confirmed ; Classification: Medical ; Code: [id number] ; Contributor System: PowerChart ; Last Updated: 06/27/2018 14:14 EDT ; Life Cycle Date: 04/21/2018 ; Life Cycle Status: Active ; Vocabulary: SNOMED CT Coronary artery disease (SNOMED CT :0162211698 ) Name of Problem: Coronary artery disease ; Recorder: HARI INFANTE RN; Confirmation: Confirmed ; Classification: Patient Stated ; Code: [id number] ; Contributor System: PowerChart ; Last Updated: 03/04/2014 19:31 EDT ; Life Cycle Date: 08/07/2013 ; Life Cycle Status: Active ; Vocabulary: SNOMED CT Disorder of prostate (SNOMED CT :15743173 ) Name of Problem: Disorder of prostate ; Recorder: HARI INFANTE RN; Confirmation: Confirmed ; Classification: Patient Stated ; Code: 84762915 ; Contributor System: PowerChart ; Last Updated: 03/04/2014 19:31 EDT ; Life Cycle Date: 08/07/2013 ; Life Cycle Status: Active ; Vocabulary: SNOMED CT Diverticulosis (SNOMED CT :2731933975 ) Name of Problem: Diverticulosis ; Recorder: GODWIN BRENNAN RN; Confirmation: Confirmed ; Classification: Medical ; Code: [id number] ; Contributor System: PowerChart ; Last Updated: 03/08/2016 12:23 EDT ; Life Cycle Date: 03/08/2016 ; Life Cycle Status: Active ; Vocabulary: SNOMED CT h/o Rheumatic fever (SNOMED CT :16025122 ) Name of Problem: h/o Rheumatic fever ; Recorder: Luz Al RN; Confirmation: Confirmed ; Classification: Medical ; Code: 95717318 ; Contributor System: PowerChart ; Last Updated: 01/27/2019 8:41 EDT ; Life Cycle Date: 01/27/2019 ; Life Cycle Status: Active ; Vocabulary: SNOMED CT History of obstructive sleep apnea (IMO :34086673 ) Name of Problem: History of obstructive sleep apnea ; Recorder: SYSTEM, SYSTEM; Confirmation: Confirmed ; Classification: Medical ; Code: 72303043 ; Last Updated: 04/20/2018 23:59 EDT ; Life Cycle Date: 04/20/2018 ; Life Cycle Status: Active ; Vocabulary: IMO HLD (SNOMED CT :67132852 ) Name of Problem: HLD ; Recorder: NANCY NUNES RN; Confirmation: Confirmed ; Classification: Medical ; Code: 43915985 ; Contributor System: PowerChart ; Last Updated: 05/30/2018 12:56 EDT ; Life Cycle Date: 04/21/2018 ; Life Cycle Status: Active ; Vocabulary: SNOMED CT ; Comments: 04/21/2018 8:36 - NANCY NUNES RN Statin intolerance HTN (SNOMED CT :7444627691 ) Name of Problem: HTN ; Recorder: NANCY NUNES RN; Confirmation: Confirmed ; Classification: Medical ; Code: 4827709244 ; Contributor System: PowerChart ; Last Updated: 05/30/2018 12:58 EDT ; Life Cycle Date: 04/21/2018 ; Life Cycle Status: Active ; Vocabulary: SNOMED CT Hyperlipidemia (SNOMED CT :77303898 ) Name of Problem: Hyperlipidemia ; Recorder: HARI INFANTE RN; Confirmation: Confirmed ; Classification: Patient Stated ; Code: 55644980 ; Contributor System: PowerChart ; Last Updated: 03/04/2014 19:31 EDT ; Life Cycle Date: 08/07/2013 ; Life Cycle Status: Active ; Vocabulary: SNOMED CT Hypertension (SNOMED CT :39102973 ) Name of Problem: Hypertension ; Recorder: HARI INFANTE RN; Confirmation: Confirmed ; Classification: Patient Stated ; Code: 07383928 ; Contributor System: PowerChart ; Last Updated: 03/04/2014 19:31 EDT ; Life Cycle Date: 08/07/2013 ; Life Cycle Status: Active ; Vocabulary: SNOMED CT Impaired vision (SNOMED CT :64180526 ) Name of Problem: Impaired vision ; Recorder: HARI INFANTE RN; Confirmation: Confirmed ; Classification: Patient Stated ; Code: 24834445 ; Contributor System: PowerChart ; Last Updated: 03/04/2014 19:31 EDT ; Life Cycle Date: 08/07/2013 ; Life Cycle Status: Active ; Vocabulary: SNOMED CT Renal calculus (SNOMED CT :823956062 ) Name of Problem: Renal calculus ; Recorder: HARI INFANTE RN; Confirmation: Confirmed ; Classification: Patient Stated ; Code: 166577072 ; Contributor System: [employer] ; Last Updated: 03/04/2014 19:31 EDT ; Life Cycle Date: 08/07/2013 ; Life Cycle Status: Active ; Vocabulary: SNOMED CT Renal disease (SNOMED CT :423721988 ) Name of Problem: Renal disease ; Recorder: HARI INFANTE RN; Confirmation: Confirmed ; Classification: Patient Stated ; Code: 226197121 ; Contributor System: [employer] ; Last Updated: 03/04/2014 19:31 EDT ; Life Cycle Date: 08/07/2013 ; Life Cycle Status: Active ; Vocabulary: SNOMED CT Skin cancer (SNOMED CT :1593885601 ) Name of Problem: Skin cancer ; Recorder: HARI INFANTE RN; Confirmation: Confirmed ; Classification: Patient Stated ; Code: 8755699566 ; Contributor System: PowerChart ; Last Updated: 03/04/2014 19:31 EDT ; Life Cycle Date: 08/07/2013 ; Life Cycle Status: Active ; Vocabulary: SNOMED CT Stented coronary artery (SNOMED CT :6214355958 ) Name of Problem: Stented coronary artery ; Recorder: HARI INFANTE RN; Confirmation: Confirmed ; Classification: Patient Stated ; Code: 4874155354 ; Contributor System: ActionFlow ; Last Updated: 03/04/2014 19:31 EDT ; Life Cycle Date: 08/07/2013 ; Life Cycle Status: Active ; Vocabulary: SNOMED CT Diagnoses(Active) Abdominal pain Date: 01/13/2019 ; Diagnosis Type: Reason For Visit ; Confirmation: Complaint of ; Clinical Dx: Abdominal pain ; Classification: Medical ; Clinical Service: Emergency medicine ; Code: PNED ; Probability: 0 ; Diagnosis Code: [id number] ED Height and Weight Height Source : Stated Height Entry Format : [place] Height, Feet : 5 ft(Converted to: 152 cm, 60 Inch) Height, Inches : 6 Inch(Converted to: 0 ft 6 Inch, 15.24 cm) Clinical Height : 167.64 cm Weight Source, ED : Critical estimated dosing weight Weight Entry Format : [place] Weight, Pounds : 150 lb Clinical Dosing Weight : 68.18 kg Body Surface Area (BSA) : 1.77 m2 Body Mass Index : 24.3 kg/m2 (HI) [place] Body Weight (IBW) : 62.88 kg Piedad Morelos RN - 02/01/2019 21:46 EDT Pain Assessment Pain Assessment : Initial assessment Pain Scale Used : 0-10 Scale Location : Abdomen, left lower Piedad Morelos RN - 02/01/2019 21:46 EDT Pain Scale Intensity : 7 Piedad Morelos RN - 02/01/2019 21:46 EDT Image 4 - Images currently included in the form version of this document have not been included in the text rendition version of the form. documented in this encounter Plan of Treatment Not on file documented as of this encounter Visit Diagnoses Not on filedocumented in this encounter Care Teams Conservation Assistant Relationship Specialty Start Date End Date Dillan Donnelly MD [address] [place] [address] PCP - General Adolescent Medicine 07/20/22 01/03/23 Cory Finley MD [address] [place] [address] [address] [place] [address] PCP - General Family Medicine 01/04/23 documented as of this encounter
--- OUTSIDE RECORDS SUMMARY | 2025-09-12 16:03 | XMS_ITS | Encounter Summary ---
Author Organization [employer] ([place], [place], [place], [place], [place]) Address [address] [place] [address] Care Team Providers Care Single Needle Operator Name Role Phone Dillan Donnelly MD Primary Care Provider [phone] Cory Finley MD Primary Care Provider [phone] Encounter Details Date Type Department Care Team (Late st Contact Info) Description 01/27/2019 Transcribed Document [facility] [place] Family Medicine [facility] [place] [address] ProviderCitlali MD [address] [place] [address] Social History Tobacco Use Types Packs/Day Years Used Date Smoking Tobacco: Never Assessed Sex and Gender Information Value Date Recorded Sex Assigned at Not on file Legal Sex Male 1:29 PM CDT Gender Identity Not on file Sexual Orientation Not on file documented as of this encounter Miscellaneous Notes * Cerner Conversion Note - Citlali ProviderMD - 01/27/2019 9:56 AM CDT [facility] [address] [place] [id number] VALDEZ MCGOWAN EAR :1935 Visit Time:01/27/2019 What to do next Follow-Up Appointments Follow Up with CHIQUI CHUN When Comments follow up colonoscopy in 5 years Where: [address] [facility] [address] [place] [address]- Business (1) Medications What How Much When Instructions Next Dose aspirin 81 Milligram(s) Oral Every Day carvedilol (carvedilol 12.5 mg oral tablet) 1 Tablet(s) Oral Two Times A Day clopidogrel (Plavix 75 mg oral tablet) 1 Tablet(s) Oral Every Day nitroglycerin (nitroglycerin 0.4 mg sublingual spray) 1 Strawberry Point(s) SubLINgual Every 5 minutes as needed for for chest pain polyethylene glycol 3350 (MiraLax) 1 Gram(s) Oral Two Times A Day Take your medications faithfully. Do NOT skip [...] of unused and medications per pharmacy guidance. Education Materials High-Fiber Diet Fiber, also called dietary fiber, is a type of carbohydrate found in fruits, vegetables, whole grains, and beans. A high-fiber diet can have many health benefits. Your health care provider may recommend a high-fiber diet to help: ??? Prevent constipation. Fiber can make your bowel movements more regular. ??? Lower your cholesterol. ??? Relieve hemorrhoids, uncomplicated diverticulosis, or irritable bowel syndrome. ??? Prevent overeating as part of a weight-loss plan. ??? Prevent heart disease, type 2 diabetes, and certain cancers. What is my plan? The recommended daily intake of fiber includes: ??? 38 grams for men under age 50. ??? 30 grams for men over age 50. ??? 25 grams for women under age 50. ??? 21 grams for women over age 50. You can get the recommended daily intake of dietary fiber by eating a variety of fruits, vegetables, grains, and beans. Your health care provider may also recommend a fiber supplement if it is not possible to get enough fiber through your diet. What do I need to know about a high-fiber diet? Fiber supplements have not been widely studied for their effectiveness, so it is better to get fiber through food sources. ??? Always check the fiber content on the nutrition facts label of any prepackaged food. Look for foods that contain at least 5 grams of fiber per serving. ??? Ask your dietitian if you have questions about specific foods that are related to your condition, especially if those foods are not listed in the following section. ??? Increase your daily fiber consumption gradually. Increasing your intake of dietary fiber too quickly may cause bloating, cramping, or gas. ??? Drink plenty of water. Water helps you to digest fiber. What foods can I eat? GrainsWhole-grain breads. Multigrain cereal. Oats and oatmeal. Brown rice. Barley. Bulgur wheat. Millet. Bran muffins. Popcorn. [place]ittier wafer crackers. VegetablesSweet potatoes. Spinach. Kale. Artichokes. Cabbage. Broccoli. Green peas. Carrots. Squash. FruitsBerries. Pears. Apples. Oranges. Avocados. Prunes and raisins. Dried figs. Meats and Other Protein SourcesNavy, kidney, travis, and soy beans. Split peas. Lentils. Nuts and seeds. DairyFiber-fortified yogurt. BeveragesFiber-fortified soy milk. Fiber-fortified orange juice. OtherFiber bars. The items listed above may not be a complete list of recommended foods or beverages. Contact your dietitian for more options. What foods are not recommended? GrainsWhite bread. Pasta made with refined flour. White rice. VegetablesFried potatoes. Canned vegetables. Well-cooked vegetables. FruitsFruit juice. Cooked, strained fruit. Meats and Other Protein SourcesFatty cuts of meat. Fried poultry or fried fish. DairyMilk. Yogurt. Cream cheese. Sour cream. BeveragesSoft drinks. OtherCakes and pastries. Butter and oils. The items listed above may not be a complete list of foods and beverages to avoid. Contact your dietitian for more information. What are some tips for including high-fiber foods in my diet? Eat a wide variety of high-fiber foods. ??? Make sure that half of all grains consumed each day are whole grains. ??? Replace breads and cereals made from refined flour or white flour with whole-grain breads and cereals. ??? Replace white rice with brown rice, bulgur wheat, or millet. ??? Start the day with a breakfast that is high in fiber, such as a cereal that contains at least 5 grams of fiber per serving. ??? Use beans in place of meat in soups, salads, or pasta. ??? Eat high-fiber snacks, such as berries, raw vegetables, nuts, or popcorn. This information is not intended to replace advice given to you by your health care provider. Make sure you discuss any questions you have with your health care provider. Document Released: 09/09/2006 Document Revised: 02/14/2017 Document Reviewed: 02/22/2015 [employer] Interactive Patient Education ?? 2017 [employer] Colon Polyps Introduction Polyps are tissue growths inside the body. Polyps can grow in many places, including the large intestine (colon). A polyp may be a round bump or a mushroom-shaped growth. You could have one polyp or several. Most colon polyps are noncancerous (benign). However, some colon polyps can become cancerous over time. What are the causes? The exact cause of colon polyps is not known. What increases the risk? This condition is more likely to develop in people who: ??? Have a family history of colon cancer or colon polyps. ??? Are older than 50 or older than 45 if they are . ??? Have inflammatory bowel disease, such as ulcerative colitis or Crohn disease. ??? Are overweight. ??? Smoke cigarettes. ??? Do not get enough exercise. ??? Drink too much alcohol. ??? Eat a diet that is: ? High in fat and red meat. ? Low in fiber. ??? Had childhood cancer that was treated with abdominal radiation. What are the signs or symptoms? Most polyps do not cause symptoms. If you have symptoms, they may include: ??? Blood coming from your rectum when having a bowel movement. ??? Blood in your stool. The stool may look dark red or black. ??? A change in bowel habits, such as constipation or diarrhea. How is this diagnosed? This condition is diagnosed with a colonoscopy. This is a procedure that uses a lighted, flexible scope to look at the inside of your colon.How is this treated? Treatment for this condition involves removing any polyps that are found. Those polyps will then be tested for cancer. If cancer is found, your health care provider will talk to you about options for colon cancer treatment. Follow these instructions at home: Diet ??? Eat plenty of fiber, such as fruits, vegetables, and whole grains. ??? Eat foods that are high in calcium and vitamin D, such as milk, cheese, yogurt, eggs, liver, fish, and broccoli. ??? Limit foods high in fat, red meats, and processed meats, such as hot dogs, sausage, reyes, and lunch meats. ??? Maintain a healthy weight, or lose weight if recommended by your health care provider. General instructions ??? Do notsmoke cigarettes. ??? Do notdrink alcohol excessively. ??? Keep all follow-up visits as told by your health care provider. This is important. This includes keeping regularly scheduled colonoscopies. Talk to your health care provider about when you need a colonoscopy. ??? Exercise every day or as told by your health care provider. Contact a health care provider if: ??? You have new or worsening bleeding during a bowel movement. ??? You have new or increased blood in your stool. ??? You have a change in bowel habits. ??? You unexpectedly lose weight. This information is not intended to replace advice given to you by your health care provider. Make sure you discuss any questions you have with your health care provider. Document Released: 06/05/2005 Document Revised: 02/14/2017 Document Reviewed: 07/30/2016 ?? 2017 [employer] Colonoscopy, Adult, Care After This sheet gives you information about how to care for yourself after your procedure. Your health care provider may also give you more specific instructions. If you have problems or questions, contact your health care provider. What can I expect after the procedure? After the procedure, it is common to have: ??? A small amount of blood in your stool for 24 hours after the procedure. ??? Some gas. ??? Mild abdominal cramping or bloating. Follow these instructions at home: General instructions ??? For the first 24 hours after the procedure: ? Do notdrive or use machinery. ? Do notsign important documents. ? Do not drink alcohol. ? Do your regular daily activities at a slower pace than normal. ? Eat soft, rmkj-gv-aidugt foods. ? Rest often. ??? Take mbzw-kts-bmogiiu or prescription medicines only as told by your health care provider. ??? It is up to you to get the results of your procedure. Ask your health care provider, or the department performing the procedure, when your results will be ready. Relieving cramping and bloating ??? Try walking around when you have cramps or feel bloated. ??? Apply heat to your abdomen as told by your health care provider. Use a heat source that your health care provider recommends, such as a moist heat pack or a heating pad. ? Place a towel between your skin and the heat source. ? Leave the heat on for 20???30 minutes. ? Remove the heat if your skin turns bright red. This is especially important if you are unable to feel pain, heat, or cold. You may have a greater risk of getting burned. Eating and drinking ??? Drink enough fluid to keep your urine clear or pale yellow. ??? Resume your normal diet as instructed by your health care provider. Avoid heavy or fried foods that are hard to digest. ??? Avoid drinking alcohol for as long as instructed by your health care provider. Contact a health care provider if: ??? You have blood in your stool 2???3 days after the procedure. Get help right away if: ??? You have more than a small spotting of blood in your stool. ??? You pass large blood clots in your stool. ??? Your abdomen is swollen. ??? You have nausea or vomiting. ??? You have a fever. ??? You have increasing abdominal pain that is not relieved with medicine. This information is not intended to replace advice given to you by your health care provider. Make sure you discuss any questions you have with your health care provider. Document Released: 04/23/2005 Document Revised: 06/03/2017 Document Reviewed: 11/20/2016 [employer] Interactive Patient Education ?? 2017 [employer]. Emergency Awareness and Preventative Care STROKE is [...] Assistance with quitting is available by contacting 6-593-FOWL-NOW. This is a free resource providing counseling, [...] and how to prevent infections, visit www.cdc.gov/sepsis. Patient Portal Reminder: Be sure to sign up for the [facility] patient portal, which gives you 15/04 access to your medical information ??? including these discharge instructions ??? using your computer, smartphone, or tablet. Just go to [employer] to get started. Questions? Call . Test Results Laboratory or Other Results This Visit (last charted value for your 01/27/2019 visit) No Laboratory or Other Results This Visit Patient Name:VALDEZ MCGOWAN MALIK I have received this information and was given the opportunity to ask questions. Patient/Contract Loader Name: Patient/Contract Loader Signature: Relationship to Patient: Clinician/Hospital Contract Loader Signature: Date: documented in this encounter Plan of Treatment Not on file documented as of this encounter Visit Diagnoses Not on filedocumented in this encounter Care Teams Single Needle Operator Relationship Specialty Start Date End Date Dillan Donnelly MD [address] [place] [address] [place] [id number] PCP - General Adolescent Medicine 07/20/22 01/03/23 Cory Finley MD [address] [place] [address] [address] [place] [address] PCP - General Family Medicine 01/04/23 documented as of this encounter
--- OUTSIDE RECORDS SUMMARY | 2025-09-12 16:03 | XMS_ITS | Encounter Summary ---
Author Organization [employer] ([place], [place], [place], [place], [place]) Address [address] [place] [address] Care Team Providers Care Test Evaluator Name Role Phone Dillan Donnelly MD Primary Care Provider [phone] Cory Finley MD Primary Care Provider [phone] Encounter Details Date Type Department Care Team (Late st Contact Info) Description 05/21/2021 Transcribed Document [facility] [place] Family Medicine [facility] [place] [address] ProviderCitlali MD [address] [place] [address] Social History Tobacco Use Types Packs/Day Years Used Date Smoking Tobacco: Never Assessed Sex and Gender Information Value Date Recorded Sex Assigned at Not on file Legal Sex Male 1:29 PM CDT Gender Identity Not on file Sexual Orientation Not on file documented as of this encounter Miscellaneous Notes * Jess Conversion Note - Citlali Bhandari MD - 05/21/2021 3:24 AM CDT Electronically signed by Ivette [facility] Conversion Financial Aid Officer Jess at 01/08/2023 3:05 PM CDT documented in this encounter Plan of Treatment Not on file documented as of this encounter Visit Diagnoses Not on filedocumented in this encounter Care Teams Test Evaluator Relationship Specialty Start Date End Date Dillan Donnelly MD [address] [place] [address] PCP - General Adolescent Medicine 07/20/22 01/03/23 Cory Finley MD [address] [place] [address] PCP - General Family Medicine 01/04/23 documented as of this encounter
--- OUTSIDE RECORDS SUMMARY | 2025-09-12 16:03 | XMS_ITS | Encounter Summary ---
Author Organization [email or web address] ([place], [place], [place], [place], [place]) Address [address] [place] [address] Care Team Providers Care Balancing Machine Operator Name Role Phone Dillan Mejias MD Primary Care Provider [phone] Cory Finley MD Primary Care Provider [phone] Encounter Details Date Type Department Care Team (Late st Contact Info) Description 02/02/2019 Transcribed Document [facility] [place] [address] [place] [address] ProviderCitlali MD [address] [place] [address] Social History Tobacco Use Types Packs/Day Years Used Date Smoking Tobacco: Never Assessed Sex and Gender Information Value Date Recorded Sex Assigned at Not on file Legal Sex Male 1:29 PM CDT Gender Identity Not on file Sexual Orientation Not on file documented as of this encounter Miscellaneous Notes * Cerner Conversion Note - Citlali Bhandari MD - 02/02/2019 2:07 AM CDT [facility] [place] [place] [address] VALDEZ MCGOWAN EAR :1935 Visit Time:02/01/2019 Your Visit Summary Your Care Team Admitting Physician - JANET PRO MD Attending Physician - JANET PRO MD Primary Care Physician - DILLAN MEJIAS (REF)MD-[facility] Referring Physician - JANET PRO MD Your Diagnosis Abdominal pain Ureterolithiasis Patient Portal Reminder: Be sure to sign up for the [facility] patient portal, which gives you 15/04 access to your medical information ??? including these discharge instructions ??? using your computer, smartphone, or tablet. Just go to [employer] to get started. Questions? Call . You [...] do next Follow-Up Appointments Follow Up with UBALDO SMALLWOOD When Within 2 to 3 days Where: [address] [place] [address] [place] [address] Business (1) Follow Up with DILLAN MEJIAS When Within 2 to 3 days Where: [address] [place] [address] [facility] (1) Allergies Crestor (Muscle spasm, Muscle stiffness) Livalo (Muscle spasm, Muscle stiffness) penicillins pravastatin (muscle weakness, muscle weakness) simvastatin (elevated lft s, elevated lft s) tetracycline (nausea, nausea) Immunizations This Visit No Immunizations Found Medications What How Much When Instructions Next Dose acetaminophen-hydrocodone (Dana 5 mg-325 mg oral tablet) 1 Tablet(s) Oral Every 4 Hours as needed for for pain Printed Prescription ondansetron (Zofran 4 mg oral tablet) 1 Tablet(s) Oral Every 8 Hours as needed for Nausea Printed Prescription aspirin 81 Milligram(s) Oral Every Day carvedilol (carvedilol 12.5 mg oral tablet) 1 Tablet(s) Oral Two Times A Day clopidogrel (Plavix 75 mg oral tablet) 1 Tablet(s) Oral Every Day linaclotide (Linzess 290 mcg oral capsule) Oral Every Day nitroglycerin (nitroglycerin 0.4 mg sublingual spray) 1 Benton(s) SubLINgual Every 5 minutes as needed for [...] This Visit (last charted value for your 02/01/2019 visit) Hematology 02/01/19 22:11:00 WBC: 5.8 K/uL -- Normal range between ( 3.6 and 9.5 ) RBC: 4.92 Million/uL -- Normal range between ( 4.20 and 5.70 ) Hct: 44.9 % -- Normal range between ( 40.1 and 51.0 ) Hgb: 15.3 g/dL -- Normal range between ( 13.5 and 17.3 ) Platelet Count: 206 K/uL -- Normal range between ( 163 and 369 ) MCH: 31.1 pg -- Normal range between ( 25.6 and 32.2 ) MCHC: 34.1 Gram/dL -- Normal range between ( 32.2 and 36.5 ) MCV: 91.3 fL -- Normal range between ( 79.0 and 94.8 ) Slide Review: No Eos %: 1.6 % -- Normal range between ( 0.0 and 7.0 ) [place] #: 0.69 K/uL -- Normal range between ( 0.16 and 1.00 ) Eos #: 0.09 x10(3)/uL -- Normal range between ( 0.00 and 0.80 ) [place] %: 12.0 % -- Normal range between ( 3.0 and 9.0 ) Baso %: 0.3 % -- Normal range between ( 0.0 and 1.5 ) Baso #: 0.02 x10(3)/uL -- Normal range between ( 0.00 and 0.20 ) RDW: 13.0 % -- Normal range between ( 11.7 and 14.9 ) Neut %: 69.1 % -- Normal range between ( 34.0 and 71.0 ) Neut #: 3.97 K/uL -- Normal range between ( 1.56 and 6.13 ) Lymph %: 16.7 % -- Normal range between ( 19.3 and 53.1 ) Lymph #: 0.96 x10(3)/uL -- Normal range between ( 1.00 and 3.90 ) MPV: 11.8 fL -- Normal range between ( 9.4 and 12.4 ) IG#: 0.02 x10(3)/uL -- Normal range between ( 0.00 and 0.05 ) IG%: 0.30 % -- Normal range between ( 0.00 and 0.60 ) Urinalysis 02/01/19 23:00:00 Ur RBC: 0-2 /HPF Urine Nitrite: Negative Urine Leukocyte Esterase: Negative Urine Appearance: Clear Urine Glucose Dipstick: Negative Urine Blood Dipstick: Large Urine Urobilinogen Dipstick: 0.2 EU/dL Urine Protein Dipstick: Negative Urine Color: Yellow Urine Ketones Dipstick: Negative Urine pH Dipstick: 5.5 -- Normal range between ( 6.0 and 8.0 ) Urine Bilirubin Dipstick: Negative Urine Specific [place]: 1.004 -- Normal range between ( 1.005 and 1.030 ) Urine Type.: [facility] General Chemistry 02/01/19 22:11:00 Creatinine Level: 0.80 mg/dL -- Normal range between ( 0.70 and 1.30 ) Sodium Level: 142 mmol/L -- Normal range between ( 136 and 146 ) Potassium Level: 4.2 mmol/L -- Normal range between ( 3.5 and 5.1 ) Chloride Level: 109 mmol/L -- Normal range between ( 102 and 112 ) Carbon Dioxide Level: 24 mmol/L -- Normal range between ( 21 and 32 ) Anion Gap: 13 -- Normal range between ( 9 and 20 ) Bilirubin Total: 0.5 mg/dL -- Normal range between ( 0.2 and 1.2 ) A/G Ratio: 1.5 -- Normal range between ( 1.1 and 2.5 ) ALT: 39 Units/Liter -- Normal range between ( 16 and 61 ) AST: 22 Units/Liter -- Normal range between ( 5 and 37 ) Globulin: 2.6 Gram/dL -- Normal range between ( 1.5 and 4.5 ) Alk Phos: 132 Units/Liter -- Normal range between ( 27 and 136 ) Bun/Creatinine: 12.5 -- Normal range between ( 8.0 and 20.0 ) Calcium Level: 8.9 mg/dL -- Normal range between ( 8.4 and 10.1 ) eGFR : >60 mL/min/1.73m2 eGFR NonAfrican: >60 mL/min/1.73m2 Glucose Level: 109 mg/dL -- Normal range between ( 74 and 106 ) Blood Urea Nitrogen: 10 mg/dL -- Normal range between ( 7 and 22 ) Lactic Acid Level: 0.9 mmol/L -- Normal range between ( 0.4 and 2.0 ) Protein Total: 6.5 Gram/dL -- Normal range between ( 6.4 and 8.2 ) Albumin Level: 3.9 Gram/dL -- Normal range between ( 3.4 and 5.0 ) Lipase Level: 136 Units/Liter -- Normal range between ( 73 and 393 ) Cardiac Specific Markers 02/01/19 22:11:00 Troponin I Ultra: <0.015 ng/mL -- Normal range between ( 0.015 and 0.045 ) ProBNP: 460 pg/mL -- Normal range between ( 0 and 450 ) Coagulation 02/01/19 22:11:00 INR: 0.9 -- Normal range between ( 0.9 and 1.1 ) PTT: 27.8 Second(s) -- Normal range between ( 22.0 and 32.0 ) PT: 10.2 Second(s) -- Normal range between ( 9.6 and 12.0 ) Education Materials Kidney Stones Kidney stones (urolithiasis) are rock-like masses that form inside of the kidneys. Kidneys are organs that make pee (urine). A kidney stone can cause very bad pain and can block the flow of pee. The stone usually leaves your body (passes) through your pee. You may need to have a doctor take out the stone. Follow these instructions at home: Eating and drinking ??? Drink enough fluid to keep your pee clear or pale yellow. This will help you pass the stone. ??? If told by your doctor, change the foods you eat (your diet). This may include: ? Limiting how much salt (sodium) you eat. ? Eating more fruits and vegetables. ? Limiting how much meat, poultry, fish, and eggs you eat. ??? Follow instructions from your doctor about eating or drinking restrictions. General instructions ??? Collect pee samples as told by your doctor. You may need to collect a pee sample: ? 24 hours after a stone comes out. ? 8???12 weeks after a stone comes out, and every 6???12 months after that. ??? Strain your pee every time you pee (urinate), for as long as told. Use the strainer that your doctor recommends. ??? Do notthrow out the stone. Keep it so that it can be tested by your doctor. ??? Take [id number] and prescription medicines only as told by your doctor. ??? Keep all follow-up visits as told by your doctor. This is important. You may need follow-up tests. Preventing kidney stones To prevent another kidney stone: ??? Drink enough fluid to keep your pee clear or pale yellow. This is the best way to prevent kidney stones. ??? Eat healthy foods. ??? Avoid certain foods as told by your doctor. You may be told to eat less protein. ??? Stay at a healthy weight. Contact a doctor if: ??? You have pain that gets worse or does not get better with medicine. Get help right away if: ??? You have a fever or chills. ??? You get very bad pain. ??? You get new pain in your belly (abdomen). ??? You pass out (faint). ??? You cannot pee. This information is not intended to replace advice given to you by your health care provider. Make sure you discuss any questions you have with your health care provider. Document Released: 02/25/2009 Document Revised: 05/28/2017 Document Reviewed: 05/28/2017 [employer] Interactive Patient Education ?? 2017 [employer]. Emergency Awareness and Preventative Care STROKE is [...] Assistance with quitting is available by contacting 6-581-EUCT-NOW. This is a free resource providing counseling, [...] was given the opportunity to ask questions. Patient/Web Content Editor Name: Patient/Web Content Editor Signature: Relationship to Patient: Clinician/Hospital Web Content Editor Signature: Please Provide a Telephone Number Where You Can Be Reached: Is it Permissible To Leave a Message? Date: Electronically signed by Ivette [facility] Conversion Visual Education Director Cerner at 01/08/2023 3:10 PM CDT documented in this encounter Plan of Treatment Not on file documented as of this encounter Visit Diagnoses Not on filedocumented in this encounter Care Teams Balancing Machine Operator Relationship Specialty Start Date End Date Dillan Mejias MD [address] [facility] [address] [place] [address] PCP - General Adolescent Medicine 07/20/22 01/03/23 Cory Finley MD [address] [facility] [address] [place] [address] PCP - General Family Medicine 01/04/23 documented as of this encounter
--- OUTSIDE RECORDS SUMMARY | 2025-09-12 16:03 | XMS_ITS | Encounter Summary ---
Author Organization [employer] ([place], [place], [place], [place], [place]) Address [address] [place] [address] Care Team Providers Care Locker Operator Name Role Phone Dillan Donnelly MD Primary Care Provider [phone] Cory Finley MD Primary Care Provider [phone] Encounter Details Date Type Department Care Team (Late st Contact Info) Description 05/21/2021 Transcribed Document [facility] [place] [address] ProviderCitlali MD [address] [place] [address] Social History Tobacco Use Types Packs/Day Years Used Date Smoking Tobacco: Never Assessed Sex and Gender Information Value Date Recorded Sex Assigned at Not on file Legal Sex Male 1:29 PM CDT Gender Identity Not on file Sexual Orientation Not on file documented as of this encounter Miscellaneous Notes * Nikaner Conversion Note - Citlali ProviderMD - 05/21/2021 2:04 AM CDT ED Assessment Entered On: 05/21/2021 2:24 EDT Performed On: 05/21/2021 2:22 EDT by Kimberly Castaneda salad counter attendant Quick Look Assessment Level of Consciousness : Alert, Awake Affect/Behavior : Appropriate, Calm, Cooperative Orientation : Oriented x 4 Skin Temperature : Warm Skin Description : Normal for ethnicity Kimberly Castaneda Rn - 05/21/2021 2:22 EDT ED General-Functional Assess Information Obtained From : Patient Preferred Communication Mode : Verbal Communication Barrier : None Primary Language : Vietnamese Any Spiritual/Cultural Needs or Requests : No Currently in Unsafe Situation : No Kimberly Castaneda Rn - 05/21/2021 2:22 EDT Social Habits Smoking Status : Former smoker, quit more than 30 days ago Smokeless Tobacco Status : Never Desires Tobacco Cessation Calc : 0 Kimberly Castaneda Rn - 05/21/2021 2:22 EDT Social History (As Of: 05/21/2021 02:24:04 EDT) Tobacco: Smoking Status Former smoker. (Last Updated: 03/08/2016 12:25:27 EDT by GODWIN BRENNAN, BRITTANY) Smoking Status Former smoker. Years of Use: 20. Used Tobacco, but Quit Yes. Last Used: quit in 1986. (Last Updated: 06/10/2017 09:23:49 EDT by OSBALDO DEVRIES RN) Alcohol: Use in Last 12 Months: No. (Last Updated: 08/05/2013 18:55:49 EST by LUISA LONGORIA, BRITTANY) Substance Abuse: Drug Use Hx: No. Use in Last 12 Months: No. (Last Updated: 08/05/2013 18:55:45 EST by LUISA LONGORIA RN) Nutrition/Health: Caffeine intake amount: not daily. (Last Updated: 01/27/2019 08:44:37 EDT by Luz Croft RN) Home/Environment: Living situation: Home/Independent. (Last Updated: 08/20/2018 07:39:11 EST by LICHA MAYFIELD PA-C) Cardiovascular ASMT, ED Cardiovascular Assessment WDL : WDL with exceptions (Comment: pt c/o palpitations, feels like his heart is skipping beats. denies chest pain. reports nausea, and mild soa during episodes. hx of triple bypass, pacemaker, and 5 cardiac stents. also reports increased swelling in BLE [Kimberly Castaneda Rn - 05/21/2021 2:22 EDT] ) Cardiovascular Symptoms : Palpitations at rest, Palpitations with activity Nail Bed Color : Esto Chest Pain : No Kimberly Castaneda Rn - 05/21/2021 2:22 EDT Gastrointestinal ED Gastrointestinal Assessment WDL : WDL with exceptions Gastrointestinal Symptoms : Nausea Kimberly Castaneda Rn - 05/21/2021 2:22 EDT Neurologic ASMT, ED Neurologic Assessment WDL : Kimberly Herrera Rn - 05/21/2021 2:22 EDT Electronically signed by [facility] Conversion Material Checker Cerner at 01/08/2023 3:27 PM CDT documented in this encounter Plan of Treatment Not on file documented as of this encounter Visit Diagnoses Not on filedocumented in this encounter Care Teams Locker Operator Relationship Specialty Start Date End Date Dillan Donnelly MD [address] [place] [address] PCP - General Adolescent Medicine 07/20/22 01/03/23 Cory Finley MD [address] [facility] [address] [place] [address] PCP - General Family Medicine 01/04/23 documented as of this encounter
--- OUTSIDE RECORDS SUMMARY | 2025-09-12 16:03 | XMS_ITS | Encounter Summary ---
Author Organization [employer] ([place], [place], [place], [place], [place]) Address [address] [place] [address] Care Team Providers Care Paraeducator Name Role Phone Dillan Donnelly MD Primary Care Provider [phone] Cory Finley MD Primary Care Provider [phone] Encounter Details Date Type Department Care Team (Late st Contact Info) Description 02/01/2019 Transcribed Document [facility] [place] [facility] [place] [address] ProviderCitlali MD [address] [place] [id number] Social History Tobacco Use Types Packs/Day Years Used Date Smoking Tobacco: Never Assessed Sex and Gender Information Value Date Recorded Sex Assigned at Not on file Legal Sex Male 1:29 PM CDT Gender Identity Not on file Sexual Orientation Not on file documented as of this encounter Miscellaneous Notes * Cerner Conversion Note - Citlali Bhandari MD - 02/01/2019 9:38 PM CDT ED Assessment Entered On: 02/01/2019 22:26 EDT Performed On: 02/01/2019 22:24 EDT by Chad Murphy Rn ED Quick Look Assessment Level of Consciousness : Alert, Awake Affect/Behavior : Appropriate, Calm, Cooperative Orientation : Oriented x 4 Skin Temperature : Warm Chad Murphy Rn - 02/01/2019 22:24 EDT ED General-Functional Assess Information Obtained From : Patient Preferred Communication Mode : Verbal Communication Barrier : None Primary Language : East Timorese Any Spiritual/Cultural Needs or Requests : No Currently in Unsafe Situation : No Chad Mruphy Rn - 02/01/2019 22:24 EDT Social Habits Smoking Status : Former smoker, quit more than 30 days ago Smokeless Tobacco Status : Never Desires Tobacco Cessation Calc : 0 Chad Murphy Rn - 02/01/2019 22:24 EDT Social History (As Of: 02/01/2019 22:26:06 EDT) Tobacco: Smoking Status Former smoker. (Last Updated: 03/08/2016 12:25:27 EDT by GODWIN BRENNAN, BRITTANY) Smoking Status Former smoker. Years of Use: 20. Used Tobacco, but Quit Yes. Last Used: quit in 1986. (Last Updated: 06/10/2017 09:23:49 EDT by OSBALDO DEVRIES, RN) Alcohol: Use in Last 12 Months: No. (Last Updated: 08/05/2013 18:55:49 EST by LUISA LONGORIA, BRITTANY) Substance Abuse: Drug Use Hx: No. Use in Last 12 Months: No. (Last Updated: 08/05/2013 18:55:45 EST by LUISA LONGORIA, BRITTANY) Nutrition/Health: Caffeine intake amount: not daily. (Last Updated: 01/27/2019 08:44:37 EDT by Luz Al RN) Home/Environment: Living situation: Home/Independent. (Last Updated: 08/20/2018 07:39:11 EST by LICHA MAYFIEDL PA-C) Respiratory Respiratory Assessment WDL : WDL Chad Murphy Rn - 02/01/2019 22:24 EDT Gastrointestinal ED Gastrointestinal Assessment WDL : WDL with exceptions (Comment: pt startes that he has a colonoscopy with polyp removal on Saturday [Chad Murphy Rn - 02/01/2019 22:24 EDT] ) Chad Murphy Rn - 02/01/2019 22:24 EDT Genitourinary Assessment, ED Genitourinary Assessment WDL : WDL with exceptions Genitorurinary Notes : Left flank pain increased with ambualtion, states it feels like something is pulling. Chad Murphy Rn - 02/01/2019 22:24 EDT Electronically signed by Ivette [facility] Conversion Vacuum Plastic Forming Machine Operator Cerner at 01/08/2023 3:12 PM CDT documented in this encounter Plan of Treatment Not on file documented as of this encounter Visit Diagnoses Not on filedocumented in this encounter Care Teams Paraeducator Relationship Specialty Start Date End Date Dillan Donnelly MD [address] [place], [place] [id number] PCP - General Adolescent Medicine 07/20/22 01/03/23 Cory Finley MD [address] [place] [address] [address] [place] [address] PCP - General Family Medicine 01/04/23 documented as of this encounter
--- OUTSIDE RECORDS SUMMARY | 2025-09-12 16:03 | XMS_ITS | Encounter Summary ---
Author Organization [employer] ([place], [place], [place], [place], [place]) Address [address] [place] [address] Care Team Providers Care Sack Repairer Name Role Phone Dillan Donnelly MD Primary Care Provider [phone] Cory Finley MD Primary Care Provider [phone] Encounter Details Date Type Department Care Team (Late st Contact Info) Description 05/21/2021 Transcribed Document [facility] [place] [address] ProviderCitlali MD [address] [place] [address] Social History Tobacco Use Types Packs/Day Years Used Date Smoking Tobacco: Never Assessed Sex and Gender Information Value Date Recorded Sex Assigned at Not on file Legal Sex Male 1:29 PM CDT Gender Identity Not on file Sexual Orientation Not on file documented as of this encounter Miscellaneous Notes * [employer]ner Conversion Note - Citlali Bhandari MD - 05/21/2021 2:04 AM CDT [place] Suicide Severity Rating Scale (C-SSRS) Entered On: 05/21/2021 2:20 EDT Performed On: 05/21/2021 2:20 EDT by Kimberly Castaneda Rn [place] Suicide Severity Rating Scale (C-SSRS) CSSRS Past Month Wish to be : No CSSRS Past Month Suicidal Thoughts : No CSSRS Lifetime Suicide Behavior : No Suicide Severity Rating Score : 0 Suicide Severity Rating : No Additional Care Required at this time Kimberly Castaneda Rn - 05/21/2021 2:20 EDT Electronically signed by Ivette [facility] Conversion Cda Teacher Jess at 01/08/2023 3:16 PM CDT documented in this encounter Plan of Treatment Not on file documented as of this encounter Visit Diagnoses Not on filedocumented in this encounter Care Teams Sack Repairer Relationship Specialty Start Date End Date Dillan Donnelly MD [address] [place] [id number] PCP - General Adolescent Medicine 07/20/22 01/03/23 Cory Finley MD [address] [place] [address] [address] [place] [address] PCP - General Family Medicine 01/04/23 documented as of this encounter
--- OUTSIDE RECORDS SUMMARY | 2025-09-12 16:03 | XMS_ITS | Encounter Summary ---
Demographics Address [address] [place] [address] Home Phone Email Address Preferred Language Faroese Marital Status Restorationism Affiliation Unknown Race White Ethnic Group Not or Lati no [facility] Organization [facility] Address [address] [place] [address] Care Team Providers Care Air Analyst Name Role Phone Danisha Nguyen TR Primary Care Provider [phone] Encounter Details Date Type Department Care Team (Late st Contact Info) Description 08/17/2025 Telephone [facility] [address] [place] [address] Jessie Walton MA Social History Tobacco Use Types Packs/Day Years [...] Telephone Encounter - Kimberly Flores MA - 08/18/2025 9:13 AM EST I have called and spoke to [facility] pharmacy they stated they can not filled the Eliquis as of now because [facility] done processed it for fill. I have called and let Arabella ( verbal) know this and she is going to call the pharmacy to try to get it worked out. * Telephone Encounter - Kimberly Flores MA - 08/18/2025 8:55 AM EST Called and spoke to Arabella. Eliquis is going to cost over $400. I am going to call insurance company to see what they are needing to try to get it cheaper for the patient. Arabella is also going to fill out paperwork for assistance to see if they approve medication. * Telephone Encounter - Kimberly Flores MA - 08/17/2025 1:04 PM EST Called patient back, unable to leave . * Telephone Encounter - Jessie Walton MA - 08/17/2025 11:11 AM EST Arabella, on verbal, called requesting to talk to Danuta about one of pt's meds. She needs help with the ins and getting the med cheaper. Please call [phone] documented in this encounter Plan of Treatment Upcoming Encounters Date Type Department Care Team (Late st Contact Info) Description 09/20/2025 1:15 PM EST Office Visit [facility] [address] [place] [address] [place] [address] Huang Valdez MD [address] [place] [address] [place] [address] 09/29/2025 2:45 PM EST Office Visit [facility] [address] [place] [address] [place] [address] Willow Rodgers APRN [address] [place] [address] 09/29/2025 2:45 PM EST Clinical Support No Requirements [facility] [address] [place] [address] [place] [address] documented as of this encounter Visit Diagnoses Not on filedocumented in this encounter Care Teams Air Analyst Relationship Specialty Start Date End Date Danisha Nguyen APRN [address] [place] [id number] PCP - General Family Medicine 02/05/24 documented as of this encounter
--- OUTSIDE RECORDS SUMMARY | 2025-09-12 16:03 | XMS_ITS | Encounter Summary ---
Author Organization [employer] ([place], [place], [place], [place], [place]) Address [address] [place] [address] Care Team Providers Care Oxide Furnace Tender Name Role Phone Dillan Donnelly MD Primary Care Provider [phone] Cory Finley MD Primary Care Provider [phone] Encounter Details Date Type Department Care Team (Late st Contact Info) Description 01/27/2019 Transcribed Document [facility] [place] Family Medicine [facility] [place] [address] ProviderCitlali MD [address] [place] [id number] Social History Tobacco Use Types Packs/Day Years Used Date Smoking Tobacco: Never Assessed Sex and Gender Information Value Date Recorded Sex Assigned at Not on file Legal Sex Male 1:29 PM CDT Gender Identity Not on file Sexual Orientation Not on file documented as of this encounter Miscellaneous Notes * Cerner Conversion Note - Citlali ProviderMD - 01/27/2019 9:24 AM CDT [facility] Endo IntraOp Summary Primary Physician: CHIQUI CHUN MD Finalized Date/Time: 01/27/19 09:36:50 Pt. Name: VALDEZ MCGOWAN MALIK /Sex: 1935 Male Med Rec #: [id number] Physician: CHIQUI CHUN MD Financial #: [id number] Pt. Type: O Room/Bed: / Admit/Disch: 05/07/19 08:06:00 - Institution: [facility] Endo - Case Attendance Entry 1 Entry 2 Entry 3 Case Attendee CHIQUI CHUN MD RUBLE, AMY M., RN CARLO DENIS, COVERAGE SPECIALIST RN Role Performed Surgeon/Proceduralist, Classroom Assistant, First COVERAGE SPECIALIST RN/Nurse Synthetic Staple Extruder First Time In 01/27/19 09:17:00 01/27/19 09:17:00 01/27/19 09:17:00 Time Out 01/27/19 09:36:00 01/27/19 09:36:00 01/27/19 09:36:00 Procedure Colonoscopy, Colon Colonoscopy, Colon Colonoscopy, Colon Aspiration, Colon Aspiration, Colon Aspiration, Colon Polypectomy Polypectomy Polypectomy Other Attendee Superficial Wound Closed By: Last Modified By: CY BRYANT, RN CY BRYANT, CY DUFF, BRITTANY 01/27/19 09:36:46 01/27/19 09:36:46 01/27/19 09:36:46 Entry 4 Entry 5 Case Attendee Glen Avila MD OTHER, ATTENDEE #1 Role Performed Anesthesiologist of Scrub, First Record Time In 01/27/19 09:17:00 01/27/19 09:17:00 Time Out 01/27/19 09:36:00 01/27/19 09:36:00 Procedure Colonoscopy, Colon Colonoscopy, Colon Aspiration, Colon Aspiration, Colon Polypectomy Polypectomy Other Attendee Jerman Hyatt Superficial Wound Closed By: Last Modified By: CY BRYANT, RN CY BRYANT, RN 01/27/19 09:36:46 01/27/19 09:24:22 [facility] Endo - Case Attendance Audit 01/27/19 09:36:46 Rn Chemical Dependency: SPENCEAM Modifier: SPENCEAM 1 <+> Time Out 1 <*> Procedure Colonoscopy, Colon Aspiration, Colon Polypectomy 2 <+> Time Out 2 <*> Procedure Colonoscopy, Colon Aspiration, Colon Polypectomy 3 <+> Time Out 3 <*> Procedure Colonoscopy, Colon Aspiration, Colon Polypectomy 4 <+> Time Out 4 <*> Procedure Colonoscopy, Colon Aspiration, Colon Polypectomy 5 <+> Time Out 5 <*> Procedure Colonoscopy, Colon Aspiration, Colon Polypectomy 01/27/19 09:29:01 Rn Chemical Dependency: SPENCEAM Modifier: SPENCEAM 1 <*> Procedure Colonoscopy, Colon Aspiration 2 <*> Procedure Colonoscopy, Colon Aspiration 3 <*> Procedure Colonoscopy, Colon Aspiration 4 <*> Procedure Colonoscopy, Colon Aspiration 5 <*> Procedure Colonoscopy, Colon Aspiration 01/27/19 09:26:14 Rn Chemical Dependency: SPENCEAM Modifier: SPENCEAM 1 <*> Procedure Colonoscopy 2 <*> Procedure Colonoscopy 3 <*> Procedure Colonoscopy 4 <*> Procedure Colonoscopy 5 <+> Time In 5 <*> Procedure Colonoscopy 01/27/19 09:24:22 Rn Chemical Dependency: SPENCEAM Modifier: SPENCEAM <+> 5 Case Attendee <+> 5 Role Performed <+> 5 Procedure <+> 5 Other Attendee 01/27/19 09:23:25 Rn Chemical Dependency: SPENCEAM Modifier: SPENCEAM 1 <*> Procedure Colonoscopy 2 <+> Time In 2 <*> Procedure Colonoscopy 3 <+> Time In 3 <*> Procedure Colonoscopy 4 <+> Time In 4 <*> Procedure Colonoscopy 01/27/19 09:23:20 Rn Chemical Dependency: SPENCEAM Modifier: SPENCEAM 1 <+> Time In 1 <*> Procedure Colonoscopy <+> 2 Case Attendee <+> 2 Role Performed <+> 2 Procedure <+> 3 Case Attendee <+> 3 Role Performed <+> 3 Procedure <+> 4 Case Attendee <+> 4 Role Performed <+> 4 Procedure [facility] Endo - Case times Entry 1 Patient In Room Time 01/27/19 09:17:00 Out Room Time 01/27/19 09:36:00 Anesthesia Start Time 01/27/19 09:17:00 Stop Time 01/27/19 09:36:00 Surgery / Procedure Times Start Time 01/27/19 09:24:00 Stop Time 01/27/19 09:35:00 Last Modified By: CY BRYANT RN 01/27/19 09:35:45 [facility] Endo - Case times Audit 01/27/19 09:35:45 Rn Chemical Dependency: SPENCEAM Modifier: SPENCEAM <+> 1 Out Room Time <+> 1 Stop Time <+> 1 Stop Time 01/27/19 09:24:26 Rn Chemical Dependency: SPENCEAM Modifier: SPENCEAM <+> 1 Start Time [facility] Endo - Cautery Entry 1 ESU Identification Cautery Type Monopolar ESU ID Number Room 3 ID Type Hospital Number Cautery Settings Cut Setting 5 Coag Setting 30 ESU Grounding Pad Ground Pad Type Adult Grounding Pad Site Right Flank Grounding Pad OTHER, ATTENDEE #1 Applied By Grounding Pad Site Dry, Intact Skin Condition Before Cautery Grounding Pad Site Unchanged Skin Condition After Cautery Last Modified By: CY BRYANT RN 01/27/19 09:30:21 [facility] Endo - Cultures and Spec Summary Entry 1 Cultrures and Specimens Specimen Ordered: Yes Specimens Types Culture(s) Last Modified By: CY BRYANT RN 01/27/19 09:26:22 [facility] Endo - Delays Entry 1 Delay Reason Other Duration 0 Minute(s) Last Modified By: CY BRYANT RN 01/27/19 09:24:30 [facility] Endo - Departure from OR Entry 1 Integumentary Assessment Integumentary WDL Assessment WDL Transfer/Handoff Transfer to PACU Phase I Handoff Reported to Jackie Antonio Rn Post-op Transport Stretcher/Gurney Via Patient Transport CY BRYANT RN, Accompanied by CAROL DENIS CRNA Last Modified By: CY BRYANT RN 01/27/19 09:24:49 [facility] Endo - Endoscopy Details Entry 1 Abdomen Procedure Soft, Non-Tender Assessment Procedure Abdomen 01/27/19 09:24:00 Assessment D/T Radio Frequency Ablation Last Modified By: CY BRYANT RN 01/27/19 09:24:53 [facility] Endo - Fire Risk Assessment Entry 1 Fire Info Surgical Site or 0- No Incision Above the Xyphoid Open O2 Source 1- Yes (Mask or Cannula) Available Ignition 1- Yes (ESU, Laser, Light Source) Fire Risk 2 Assessment Score Fire Score Fire Risk Yes Assessment Complete Fire Risk CY BRYANT RN Assessment Verified By Fire Risk 01/27/19 09:24:00 Assessment Verified Date/Time Fire Risk High Risk Protocol Yes Implemented Standard Fire Yes Safety Precautions Followed Last Modified By: CY BRYANT RN 01/27/19 09:24:56 [facility] Endo - General Case Completion Supervisor 1 Case Information OR Endo 03 [facility] Case Level 1 Room Verified Yes Wound Class III - Contaminated Specialty SN Gastroenterology Anesthesia Type MAC ASA Class 4 Diagnosis Preop Diagnosis K59.00 R19.4 Postop Same As Preop Yes Postop Diagnosis K59.00 R19.4 Last Modified By: CY BRYANT RN 01/27/19 09:25:11 [facility] Endo - Intraoperative Assessment Entry 1 Valid History / Yes Physical in Chart Preoperative Yes Checklist Reviewed/Evaluated Patient is Latex No Sensitive Level of WDL Consciousness (WDL = Alert, Oriented to Person, Place, and Time) Present Upon IVs Arrival to OR Last Modified By: CY BRYANT RN 01/27/19 09:25:14 [facility] Endo - Intraoperative Equipment Entry 1 Equipment Intraop Monitoring Electrocardiogram Three lead placement (ECG) Electrode Placement Blood Pressure Arm, left upper Location Pulse Oximeter Hand, right Probe Site Antiembolic Devices Scopes Flexible Endoscopes Colonoscope, Peds Used Scope Serial Q Number/Identificatio n Number Photo/Video Documentation Photo Yes Video No Last Modified By: CY BRYANT RN 01/27/19 09:25:25 [facility] Endo - Patient Positioning Entry 1 Procedure Colonoscopy, Colon Aspiration, Colon Polypectomy Body Position Lateral, right side up Left Arm Position Resting at side Right Arm Position Resting at side Left Leg Position Other Right Leg Position Other Position Comments Right leg over left leg, uncrossed Feet Uncrossed Yes Pressure Points Yes Checked Positioned By CY BRYANT, RN Position Verified Positioning Yes Verified by Surgeon Last Modified By: CY BRYANT RN 01/27/19 09:25:29 [facility] Endo - Patient Positioning Audit 01/27/19 09:29:02 Rn Chemical Dependency: SPENCEAM Modifier: SPENCEAM 1 <*> Procedure Colonoscopy, Colon Aspiration 01/27/19 09:26:15 Rn Chemical Dependency: SPENCEAM Modifier: SPENCEAM 1 <*> Procedure Colonoscopy [facility] Endo - Sign In Entry 1 Patient, Site, Yes Procedure Identified Surgical Consent Yes Confirmed Surgical Site N/A Marked by person performing procedure Airway Hypothermia Risk No Warming Measures No Taken Last Modified By: CY BRYANT RN 01/27/19 09:25:38 [facility] Endo - Sign Out Entry 1 RN Confirmation Surgical Yes Procedure(s) Identified Instrument, Sponge N/A and Sharps Counts Correct/Documented Equipment Problems N/A Documented Specimen Labeled Yes Correctly Urinary Catheter N/A Documented in IView Safety Checklist Yes Elements Complete? RN Sign Out CY BRYANT, RN Signature RN Sign Out 01/27/19 09:37:00 Signature Date/Time Plan of Care Outcome - Fire Risk OUTCOME STATEMENT: Goal met Patient is free from injury related to surgical fire Plan of Care Outcome - Pt Positioning OUTCOME STATEMENT: Goal met Absence of signs and symptoms of positioning injury. Plan of Care Outcome - Skin Prep OUTCOME STATEMENT: Goal met Intraoperative care is consistent with measures to prevent infection Plan of Care Outcome - Xray/Images OUTCOME STATEMENT: N/A Absence of observable signs or symptoms of radiation injury Plan of Care Outcome - Counts OUTCOME STATEMENT: N/A Absence of signs and symptoms of injury related to extraneous objects Last Modified By: CY BRYANT RN 01/27/19 09:35:58 [facility] Endo - Surgical Procedures Entry 1 Entry 2 Entry 3 Procedure Colonoscopy Colon Aspiration Colon Polypectomy Modifiers Additional Procedure Description Primary Procedure Yes No No Primary Surgeon CHIQUI CHUN MD YONG, JUNE, MD YONG, JUNE, MD Start 01/27/19 09:24:00 01/27/19 09:25:00 01/27/19 09:25:00 Stop 01/27/19 09:35:00 01/27/19 09:35:00 01/27/19 09:35:00 Physician States 01/27/19 09:28:00 Cecum Reached Anesthesia Type MAC MAC MAC Specialty SN Gastroenterology SN Gastroenterology SN Gastroenterology Wound Class III - Contaminated III - Contaminated III - Contaminated Last Modified By: CY BRYANT, CY DUFF, CY DUFF RN 01/27/19 09:28:36 01/27/19 09:26:12 01/27/19 09:28:59 [facility] Endo - Surgical Procedures Audit 01/27/19 09:36:28 Rn Chemical Dependency: SPENCEAM Modifier: SPENCEAM <+> 1 Stop <+> 2 Stop 3 <*> Procedure Colon Polypectomy 3 <+> Stop 01/27/19 09:28:59 Rn Chemical Dependency: SPENCEAM Modifier: SPENCEAM <+> 3 Procedure <+> 3 Primary Procedure <+> 3 Primary Surgeon <+> 3 Specialty <+> 3 Start <+> 3 Wound Class <+> 3 Anesthesia Type 01/27/19 09:28:36 Rn Chemical Dependency: SPENCEAM Modifier: SPENCEAM 1 <*> Procedure Colonoscopy 1 <+> Physician States Cecum Reached 01/27/19 09:26:12 Rn Chemical Dependency: SPENCEAM Modifier: SPENCEAM 1 <*> Procedure Colonoscopy 1 <+> Specialty <+> 2 Procedure <+> 2 Primary Procedure <+> 2 Primary Surgeon <+> 2 Specialty <+> 2 Start <+> 2 Wound Class <+> 2 Anesthesia Type [facility] Endo - Time Out Entry 1 Procedure to be Colonoscopy, Colon Performed Aspiration, Colon Polypectomy Time Out Time Out Pause Time 01/27/19 09:23:00 All activity Yes suspended (unless life threatening emergency) Team Verbally Correct patient Confirms Information identity, Correct side and site are marked, Consent form is present and accurate, Agreement on the procedure to be done Antibiotic N/A Prophylaxis Administered Or In Progress Within the Last 60 Minutes Beta Fabian N/A Administered Venous N/A Thromboembolism Prophylaxis Required Anticipated Critical Events Surgeon None expected Last Modified By: CY BRYANT RN 01/27/19 09:29:02 [facility] Endo - Time Out Audit 01/27/19 09:29:02 Rn Chemical Dependency: SPENCEAM Modifier: SPENCEAM 1 <*> Procedure to be Performed Colonoscopy, Colon Aspiration 01/27/19 09:26:15 Rn Chemical Dependency: SPENCEAM Modifier: SPENCEAM 1 <*> Procedure to be Performed Colonoscopy Case Comments <None> Finalized By: CY BRYANT, RN Document Signatures Signed By: CY BRYANT RN 01/27/19 09:36 Electronically signed by Ivette [facility] Conversion Forge Tender Cerner at 01/08/2023 3:06 PM CDT documented in this encounter Plan of Treatment Not on file documented as of this encounter Visit Diagnoses Not on filedocumented in this encounter Care Teams Oxide Furnace Tender Relationship Specialty Start Date End Date Dillan Donnelly MD [address] [place] [address] PCP - General Adolescent Medicine 07/20/22 01/03/23 Cory Finley MD [address] [place] [address] [address] [place] [address] PCP - General Family Medicine 01/04/23 documented as of this encounter
--- OUTSIDE RECORDS SUMMARY | 2025-09-12 16:03 | XMS_ITS | Encounter Summary ---
Author Organization [email or web address] ([place], [place], [place], [place], [place]) Address [address] [place] [address] Care Team Providers Care Medical Service Representative Name Role Phone Dillan Donnelly MD Primary Care Provider [phone] Cory Finley MD Primary Care Provider [phone] Encounter Details Date Type Department Care Team (Late st Contact Info) Description 05/21/2021 Transcribed Document [facility] [place] [facility] [place] [address] ProviderCitlali MD [address] [place] [id number] Social History Tobacco Use Types Packs/Day Years Used Date Smoking Tobacco: Never Assessed Sex and Gender Information Value Date Recorded Sex Assigned at Not on file Legal Sex Male 1:29 PM CDT Gender Identity Not on file Sexual Orientation Not on file documented as of this encounter Miscellaneous Notes * Cerner Conversion Note - Historical ProviderMD - 05/21/2021 8:50 PM CDT CR Chest 1 Vw Portable Ordered: 05/21/2021 Modified Reason for Exam: SOA 05/21/2021 13:11 05/21/2021 20:50 (FILEMON BRADSHAW, MARISOL) Reviewed by Provider, No further action required X1 - no acute documented in this encounter Plan of Treatment Not on file documented as of this encounter Visit Diagnoses Not on filedocumented in this encounter Care Teams Medical Service Representative Relationship Specialty Start Date End Date Dillan Donnelly MD [address] [place] [id number] PCP - General Adolescent Medicine 07/20/22 01/03/23 Cory Finley MD [address] [facility] [address] [place] [address] PCP - General Family Medicine 01/04/23 documented as of this encounter
--- OUTSIDE RECORDS SUMMARY | 2025-09-12 16:03 | XMS_ITS | Encounter Summary ---
Author Organization [employer] ([place], [place], [place], [place], [place]) Address [address] [place] [address] Care Team Providers Care Environmental Safety Specialist Name Role Phone Dillan Mejias MD Primary Care Provider [phone] Cory Finley MD Primary Care Provider [phone] Encounter Details Date Type Department Care Team (Late st Contact Info) Description 01/13/2019 Transcribed Document [facility] [facility] [place] [address] ProviderCitlali MD [address] [place] [id number] Social History Tobacco Use Types Packs/Day Years Used Date Smoking Tobacco: Never Assessed Sex and Gender Information Value Date Recorded Sex Assigned at Not on file Legal Sex Male 1:29 PM CDT Gender Identity Not on file Sexual Orientation Not on file documented as of this encounter Miscellaneous Notes * Cerner Conversion Note - Citlali ProviderMD - 01/13/2019 10:22 AM CDT Patient: VALDEZ MCGOWAN EAR Age: 83 years Sex: Male : 1935 Associated Diagnoses: Constipation; Abdominal pain Author: BIJAN BLANCO ARNP Basic Information Time seen: Date & time 01/13/2019 10:10:00. History source: Patient. Arrival mode: Private vehicle. History limitation: None. Additional information: Chief Complaint from Nursing Triage Note : Chief Complaint 01/13/2019 10:01 EDT Chief Complaint pt here c/o constipation states that he was here Saturday for the same states LBM this am but very little . History of Present Illness The patient presents with constipation. The onset was 11 days ago. The course/duration of symptoms is constant. Last bowel movement 2 hour(s) ago. Character of constipation hard, small stools. The degree at present is moderate. The exacerbating factor is none. There are relieving factors including over the counter laxative, enema and movement. Risk factors consist of not diabetes mellitus, not recent surgery, no prior bowel obstruction, not narcotic use and not taking iron supplement. Prior episodes: occasional. Therapy today: Patient takes MiraLAX daily. Associated symptoms: abdominal pain, denies rectal pain, denies blood in stool, denies nausea, denies vomiting, denies fever, denies chills, denies dysuria and denies back pain. Additional history: Patient states he was seen in the ER on Saturday, 4 days ago for similar symptoms. Patient states he has not had a good bowel movement in 11 days. Patient states his last bowel movement was this morning prior to arrival to the ER. Stool small and hard. Patient is now experiencing lower abdominal pain. Previous surgical history includes inguinal hernia repair on the left, 5 years ago. Patient has no history of a bowel obstruction, patient denies dark tarry stools or rectal bleeding. Patient denies chest pain, shortness of breath, flank pain, dysuria, hematuria. No recent fever or illness. Patient denies pain medication use. Patient is concerned because he normally has a bowel movement daily. Patient states the last time he was like this he had to receive a milk and molasses enema to have a significant bowel movement. Review of Systems Constitutional symptoms: Negative except as documented in HPI. Skin symptoms: Negative except as documented in HPI. Eye symptoms: Negative except as documented in HPI. ENMT symptoms: Negative except as documented in HPI. Respiratory symptoms: Negative except as documented in HPI. Cardiovascular symptoms: Negative except as documented in HPI. Gastrointestinal symptoms: Abdominal pain, mild, right lower quadrant, left lower quadrant, pain, constipation, no nausea, no vomiting, no diarrhea. Genitourinary symptoms: Negative except as documented in HPI. Musculoskeletal symptoms: Negative except as documented in HPI. Neurologic symptoms: Negative except as documented in HPI. Psychiatric symptoms: Negative except as documented in HPI. Endocrine symptoms: Negative except as documented in HPI. Health Status Allergies: Allergic Reactions (Selected) Severity [...] Refill(s) nitroglycerin 0.4 mg sublingual spray: 1 [place], SubLINgual, Q5Min, PRN: for chest pain, 5 Gram, 0 Refill(s), per nurse's notes. Immunizations: Per nurse's notes. Past Medical/ Family/ Social History Medical history Reviewed as documented in chart. Surgical history: CABG. Coronary artery stenting. Left inguinal hernia repair. Hydrocele repair., Reviewed as documented in chart. Family history: [...] Month Tobacco Last Used quit in 1986 , Reviewed as documented in chart. Problem list: Active Problems (17) Angina Arthritis CABG - Coronary artery bypass graft CAD Coronary artery disease Disorder of prostate Diverticulosis History of obstructive sleep apnea HLD HTN Hyperlipidemia Hypertension Impaired vision Renal calculus Renal disease Skin cancer Stented coronary artery , per nurse's notes. Physical Examination Vital Signs Vital Signs/Vital Measures 01/13/2019 10:01 EDT Temperature Source Oral Temperature Mode Fahrenheit Temperature, Fahrenheit 98 Deg F Clinical Temperature, C 36.7 Deg C Peripheral Pulse Rate 61 bpm Respiratory Rate 18 Breaths/Min Systolic Blood Pressure 193 mmHg HI Diastolic Blood Pressure 91 mmHg HI Oxygen Saturation 98 % Oxygen Therapy Mode Room air . Measurements 01/13/2019 10:01 EDT Height Source Stated Height Entry Format Hampton Height/Length, HUNGARIAN (ft) 5 ft Height/Length HUNGARIAN 6 Inch CLINICALHEIGHT 167.64 cm Pettus Body Weight 62.88 kg Weight Source, ED Critical estimated dosing weight Weight Entry Format Hampton Weight Icelandic lb 155 lb CLINICALWEIGHT 70.45 kg Body Surface Area (BSA) 1.8 m2 Body Mass Index 25.1 kg/m2 HI . Oxygen Saturation 01/13/2019 10:01 EDT Oxygen Saturation 98 % . General: Alert, no acute distress. Skin: Warm, dry, pink, intact, no rash, normal for ethnicity. Head: Normocephalic. Neck: Supple. Eye: Normal conjunctiva. Ears, nose, mouth and throat: Oral mucosa moist. Cardiovascular: Regular rate and rhythm, No murmur. Respiratory: Lungs are clear to auscultation, respirations are non-labored, breath sounds are equal. Gastrointestinal: Soft, Non distended, Normal bowel sounds, Tenderness: Mild, right lower quadrant, left lower quadrant, Guarding: Negative, Rebound: Negative. Back: Normal range of motion. Musculoskeletal: Normal ROM, normal strength. Neurological: Alert and oriented to person, place, time, and situation, No focal neurological deficit observed, normal speech observed. Lymphatics: No lymphadenopathy. Psychiatric: Cooperative, appropriate mood & affect, normal judgment. Medical Decision Making Differential Diagnosis:: Constipation, abdominal pain. Documents reviewed: Emergency department nurses' notes. Orders Include Previous Orders (Selected) Inpatient Orders Ordered ED Fall Risk Documented: Ordered (Exam Completed) CR Abdomen 1 Vw: Cancelled (Canceled) NM Cardiac Stress: Cancelled (Exam Replaced) CR Portable KUB: Completed BMP Basic Metabolic Panel: ED Adult Fall Risk Assessment: ED Adult Triage: ED Clinical Reconciliation: ED sewer maintenance supervisor: Enema: . Results review: Lab results : Lab Results 01/13/2019 10:38 EDT Sodium Level 141 mmol/L Potassium Level 4.7 mmol/L Chloride Level 108 mmol/L Carbon Dioxide Level 26 mmol/L Anion Gap 12 Glucose Level 125 mg/dL HI Blood Urea Nitrogen 12 mg/dL Creatinine Level 1.00 mg/dL eGFR >60 mL/min/1.73m2 eGFR NonAfrican >60 mL/min/1.73m2 Bun/Creatinine 10.9 Calcium Level 9.1 mg/dL . Radiology results: Radiology Results (Last 48 hours) [id number] -- 01/13/2019 09:58 CR Abdomen 1 Vw (01/13/2019 10:36) Result: SINGLE VIEW ABDOMENHISTORY: Constipation x2 weeks.ABDOMEN: Single view of the abdomen demonstrates a nonspecificnonobstructive bowel gas pattern with a normal amount of stool. Thereare pelvic calcifications that are unchanged and are likely vascular. IMPRESSION: Nonspecific nonobstructive bowel gas pattern.Reviewed, interpreted, and dictated by Dr. Denzel MD.Transcribed by Machelle Conner PA-C. . Reexamination/ Reevaluation Time: 01/13/2019 12:26:00 . Notes: Discussed patient with Dr. Oden, reviewed history of present illness, physical exam, lab and imaging. Agrees patient would benefit from a milk and molasses enema patient states this is the last intervention that did help him when he constipation in the past. Patient's KUB does not show an extensive amount of stool but patient reports no significant bowel movement last 11 days. Patient is currently taking daily MiraLAX and does use mag citrate when necessary as needed. Following enema patient will be discharged from the hospital, instructed to follow closely with his primary care doctor and possible GI referral. We will provide patient with contact information for gastroenterology with continued or worsening constipation episodes. Patient states he had a recent colonoscopy last year which was normal. CT scan abdomen and pelvis performed a few days ago and was negative for bowel obstruction and did not indicate constipation. Patient advised return to the ER with worsening signs or symptoms or as needed. Patient with verbal understanding and agreeable to plan of care.. Impression and Plan Diagnosis Constipation - Discharge, Emergency medicine, Medical Abdominal pain - Discharge, Emergency medicine, Medical Plan Condition: Improved, Stable. Disposition: Discharged Admit/Transfer/Discharge: Discharge (Order): Start: 01/13/2019 12:31 EDT, Discharge to: Home. Patient was given the following educational materials: Constipation, Adult, [id number]. Follow up with: Return to Emergency Department Within As needed Follow-up as instructed Return if condition worsens; DILLAN MEJIAS Within 2 to 3 days; CHIQUI LONG Within As needed Referral information provided for Dr. Long with gastroenterology with worsening or ongoing constipation patient is advised make next available appointment. Counseled: Patient, Regarding diagnosis, Regarding diagnostic results, Regarding treatment plan, Patient indicated understanding of instructions. documented in this encounter Plan of Treatment Not on file documented as of this encounter Visit Diagnoses Not on filedocumented in this encounter Care Teams Environmental Safety Specialist Relationship Specialty Start Date End Date Dillan Mejias MD [address] [place] [address] [place] [id number] PCP - General Adolescent Medicine 07/20/22 01/03/23 Cory Finley MD [address] [facility] [address] [place] [address] PCP - General Family Medicine 01/04/23 documented as of this encounter
--- OUTSIDE RECORDS SUMMARY | 2025-09-12 16:03 | XMS_ITS | Encounter Summary ---
Author Organization [employer] ([place], [place], [place], [place], [place]) Address [address] [place] [address] Care Team Providers Care Tool Designer Name Role Phone Dillan Donnelly MD Primary Care Provider [phone] Cory Finley MD Primary Care Provider [phone] Encounter Details Date Type Department Care Team (Late st Contact Info) Description 05/21/2021 Transcribed Document [facility] [place] [address] ProviderCitlali MD [address] [place] [id number] Social History Tobacco Use Types Packs/Day Years Used Date Smoking Tobacco: Never Assessed Sex and Gender Information Value Date Recorded Sex Assigned at Not on file Legal Sex Male 1:29 PM CDT Gender Identity Not on file Sexual Orientation Not on file documented as of this encounter Miscellaneous Notes * Jess Conversion Note - Citlali ProviderMD - 05/21/2021 2:04 AM CDT Broset Violence Assessment Entered On: 05/21/2021 2:20 EDT Performed On: 05/21/2021 2:20 EDT by Kimberly Castaneda Rn Broset Violence Assessment Broset Violence Checklist of Symptoms : None Broset Violence Symptoms Subtotal : 0 Broset Violence Symptoms Indicator : Low risk (0) Kimberly Castaneda Rn - 05/21/2021 2:20 EDT Electronically signed by Ivette [facility] Conversion Pediatric Cns Cerner at 01/08/2023 3:27 PM CDT documented in this encounter Plan of Treatment Not on file documented as of this encounter Visit Diagnoses Not on filedocumented in this encounter Care Teams Tool Designer Relationship Specialty Start Date End Date Dillan Donnelly MD [address] [place] [address] [place] [address] PCP - General Adolescent Medicine 07/20/22 01/03/23 Cory Finley MD [address] [place] [address] [address] [place] [address] PCP - General Family Medicine 01/04/23 documented as of this encounter
--- OUTSIDE RECORDS SUMMARY | 2025-09-12 16:03 | XMS_ITS | Encounter Summary ---
[facility] Address [address] [place] [address] Care Team Providers Care Steam Pressure Chamber Operator Name Role Phone Danisha Nguyen TR Primary Care Provider [phone] Encounter Details Date Type Department Care Team (Late st Contact Info) Description 09/08/2025 Telephone [facility] [address] [place] [id number] Anita Alvarenga MD [address] [place], [place] [id number] Social History Tobacco Use Types Packs/Day Years [...] or training? Not on file Preferred Language Georgian 08/23/2025 Sex and Gender Information Value Date Recorded Sex Assigned at Not on file Legal Sex Male 1:10 PM EST Gender Identity Not on file Sexual Orientation Not on file documented as of this encounter Miscellaneous Notes * Telephone Encounter - Batsheva Lagos RN - 09/08/2025 1:54 PM EST Madonna from [facility] called wanting to know if labs had been completed. Contacted Arabella @ [phone] who relates Hospice is coming out to set up services. Pt has an appointment with on 09/10/25. documented in this encounter Plan of Treatment Upcoming Encounters Date Type Department Care Team (Late st Contact Info) Description 09/20/2025 1:15 PM EST Office Visit [facility] [address] [place] [address] [place] [id number] Huang Valdez MD [address] [place] [address] [place] [id number] 09/29/2025 2:45 PM EST Office Visit [facility] [address] [place] [address] [place] [phone] Willow Rodgers APRN [address] [place] [address] 09/29/2025 2:45 PM EST Clinical Support No Requirements [facility] [address] [facility] [place] [id number] documented as of this encounter Visit Diagnoses Not on filedocumented in this encounter Care Teams Steam Pressure Chamber Operator Relationship Specialty Start Date End Date Danisha Nguyen APRN [address] [place] [address] PCP - General Family Medicine 02/05/24 documented as of this encounter
--- OUTSIDE RECORDS SUMMARY | 2025-09-12 16:03 | XMS_ITS | Encounter Summary ---
Author Organization [employer] ([place], [place], [place], [place], [place]) Address [address] [place] [address] Care Team Providers Care Manager Of Community Relations Name Role Phone Dillan Donnelly MD Primary Care Provider [phone] Cory Finley MD Primary Care Provider [phone] Encounter Details Date Type Department Care Team (Late st Contact Info) Description 05/21/2021 Transcribed Document [facility] Family Medicine [facility] [place] [address] ProviderCitlali MD [address] [place] [address] Social History Tobacco Use Types Packs/Day Years Used Date Smoking Tobacco: Never Assessed Sex and Gender Information Value Date Recorded Sex Assigned at Not on file Legal Sex Male 1:29 PM CDT Gender Identity Not on file Sexual Orientation Not on file documented as of this encounter Miscellaneous Notes * Cerner Conversion Note - Citlali ProviderMD - 05/21/2021 2:04 AM CDT ED Triage Entered On: 05/21/2021 2:19 EDT Performed On: 05/21/2021 2:17 EDT by Kimberly Castaneda, production team member Triage Across the Room Chief Complaint : pt to ER c/o palpitations. states his heart feels like it is skipping beats . denies chest pain, soa at this time. has hx of triple bypass, 5 cardiac stents, pacemaker. Kimberly Castaneda, Rn - 05/21/2021 2:21 EDT Triage Date/Time : 05/21/2021 2:17 EDT Kimberly Castaneda Rn - 05/21/2021 2:17 EDT DCP GENERIC CODE Tracking Group : [facility] ED Tracking Acuity : 2 - Emergent Kimberly Castaneda Rn - 05/21/2021 2:17 EDT Mode of Arrival : Ambulatory Transported to ED by : Walk in To Room Via : Ambulate Accompanied By : Spouse ED Vital Signs : Document Height & Weight : Document ED Allergies : Document ED Reason for Visit : Document Tetanus Immunization : Less than 5 years Kimberly Castaneda Rn - 05/21/2021 2:17 EDT Infectious Disease History Has the patient ever been tested for COVID-19? : No, Patient stated Does patient have symptoms of COVID-19? : No COVID19 Screening : No Experiencing Infectious Disease Symptoms : No symptoms Physical contact outside [place] in the last 30 days : No Infectious Disease History : Influenza, Measles, Mumps, Other: rehumatic fever Tuberculosis Symptoms : None Kimberly Castaneda Rn - 05/21/2021 2:17 EDT Vital Signs ED Temperature Source : Oral Temperature Mode : Fahrenheit Temperature, Fahrenheit : 98.4 Deg F ED Pain : No Clinical Temperature, C : 36.9 Deg C Oxygen Therapy Mode : Room air Peripheral Pulse Rate : 70 bpm Respiratory Rate : 16 Breaths/Min Blood Pressure Location : Arm, right upper Blood Pressure Source : Non-Invasive BP Device Systolic Blood Pressure : 153 mmHg (HI) Diastolic Blood Pressure : 79 mmHg Oxygen Saturation : 97 % Kimberly Castaneda Rn - 05/21/2021 2:17 EDT Allergy (As Of: 05/21/2021 02:19:37 EDT) Allergies (Active) Crestor Estimated Onset Date: Unspecified ; Reactions: Muscle spasm, Muscle stiffness ; Comments: Comment 1: Info obtained from Dr Pitts' office [place], [place] ; Created By: ZAHRA ORTEZ RPh; Reaction Status: Active ; Category: Drug ; Substance: Crestor ; Type: Allergy ; Updated By: ZAHRA ORTEZ RPh; Source: Nurse ; Reviewed Date: 05/21/2021 2:18 EDT Livalo Estimated Onset Date: Unspecified ; Reactions: Muscle stiffness, Muscle spasm ; Comments: Comment 1: Info obtained from Dr Pitts' office [place], [place] ; Created By: ZAHRA ORTEZ RPh; Reaction Status: Active ; Category: Drug ; Substance: Livalo ; Type: Allergy ; Updated By: ZAHRA ORTEZ RPh; Source: Nurse ; Reviewed Date: 05/21/2021 2:18 EDT penicillins Estimated Onset Date: Unspecified ; Comments: Comment 1: per pt to RN pt states that he hasn't taken it for 50 years, but it caused a high temp & high fever ; Created By: BiancasystemDERIAN; Reaction Status: Active ; Category: Drug ; Substance: penicillins ; Type: Allergy ; Updated By: DERIAN Nova; Reviewed Date: 05/21/2021 2:18 EDT pravastatin Estimated Onset Date: Unspecified ; Reactions: muscle weakness, muscle weakness ; Created By: DERIAN Nova; Reaction Status: Active ; Category: Drug ; Substance: pravastatin ; Type: Allergy ; Updated By: DERIAN Nova; Reviewed Date: 05/21/2021 2:18 EDT simvastatin Estimated Onset Date: Unspecified ; Reactions: elevated lft s, elevated lft s ; Created By: DERIAN Nova; Reaction Status: Active ; Category: Drug ; Substance: simvastatin ; Type: Allergy ; Updated By: DERIAN Nova; Reviewed Date: 05/21/2021 2:18 EDT tetracycline Estimated Onset Date: Unspecified ; Reactions: nausea, nausea ; Created By: DERIAN Nova; Reaction Status: Active ; Category: Drug ; Substance: tetracycline ; Type: Allergy ; Updated By: DERIAN oNva; Reviewed Date: 05/21/2021 2:18 EDT Diagnosis Control ED (As Of: 05/21/2021 02:19:37 EDT) Problems(Active) Arthritis (SNOMED CT :2324216 ) Name of Problem: Arthritis ; Recorder: HARI INFANTE RN; Confirmation: Confirmed ; Classification: Patient Stated ; Code: [id number] ; Contributor System: [employer] ; Last Updated: 03/04/2014 19:31 EDT ; Life Cycle Date: 08/07/2013 ; Life Cycle Status: Active ; Vocabulary: SNOMED CT CABG - Coronary artery bypass graft (SNOMED CT :949077841 ) Name of Problem: CABG - Coronary artery bypass graft ; Recorder: HARI INFANTE RN; Confirmation: Confirmed ; Classification: Patient Stated ; Code: 507790284 ; Contributor System: [employer]Chart ; Last Updated: 03/09/2014 11:29 EDT ; Life Cycle Date: 08/07/2013 ; Life Cycle Status: Active ; Vocabulary: SNOMED CT CAD (SNOMED CT :87454578 ) Name of Problem: CAD ; Recorder: NANCY NUNES RN; Confirmation: Confirmed ; Classification: Medical ; Code: 38846742 ; Contributor System: [employer]Chart ; Last Updated: 06/27/2018 14:14 EDT ; Life Cycle Date: 04/21/2018 ; Life Cycle Status: Active ; Vocabulary: SNOMED CT Coronary artery disease (SNOMED CT :8538155570 ) Name of Problem: Coronary artery disease ; Recorder: HARI INFANTE RN; Confirmation: Confirmed ; Classification: Patient Stated ; Code: 6409322371 ; Contributor System: PowerChart ; Last Updated: 03/04/2014 19:31 EDT ; Life Cycle Date: 08/07/2013 ; Life Cycle Status: Active ; Vocabulary: SNOMED CT Disorder of prostate (SNOMED CT :85316861 ) Name of Problem: Disorder of prostate ; Recorder: HARI INFANTE RN; Confirmation: Confirmed ; Classification: Patient Stated ; Code: 70587620 ; Contributor System: PowerChart ; Last Updated: 03/04/2014 19:31 EDT ; Life Cycle Date: 08/07/2013 ; Life Cycle Status: Active ; Vocabulary: SNOMED CT Diverticulosis (SNOMED CT :1875030886 ) Name of Problem: Diverticulosis ; Recorder: GODWIN BRENNAN RN; Confirmation: Confirmed ; Classification: Medical ; Code: 4274036151 ; Contributor System: [employer]Chart ; Last Updated: 03/08/2016 12:23 EDT ; Life Cycle Date: 03/08/2016 ; Life Cycle Status: Active ; Vocabulary: SNOMED CT h/o Rheumatic fever (SNOMED CT :79864363 ) Name of Problem: h/o Rheumatic fever ; Recorder: Luz Croft RN; Confirmation: Confirmed ; Classification: Medical ; Code: 63004925 ; Contributor System: PowerChart ; Last Updated: 01/27/2019 8:41 EDT ; Life Cycle Date: 01/27/2019 ; Life Cycle Status: Active ; Vocabulary: SNOMED CT History of obstructive sleep apnea (IMO :93230356 ) Name of Problem: History of obstructive sleep apnea ; Recorder: SYSTEM, SYSTEM; Confirmation: Confirmed ; Classification: Medical ; Code: 53051590 ; Last Updated: 04/20/2018 23:59 EDT ; Life Cycle Date: 04/20/2018 ; Life Cycle Status: Active ; Vocabulary: IMO HLD (SNOMED CT :31452256 ) Name of Problem: HLD ; Recorder: NANCY NUNES RN; Confirmation: Confirmed ; Classification: Medical ; Code: 28009561 ; Contributor System: PowerChart ; Last Updated: 05/30/2018 12:56 EDT ; Life Cycle Date: 04/21/2018 ; Life Cycle Status: Active ; Vocabulary: SNOMED CT ; Comments: 04/21/2018 8:36 - NANCY NUNES RN Statin intolerance HTN (SNOMED CT :1751639393 ) Name of Problem: HTN ; Recorder: NANCY NUNES RN; Confirmation: Confirmed ; Classification: Medical ; Code: 1076371577 ; Contributor System: PowerChart ; Last Updated: 05/30/2018 12:58 EDT ; Life Cycle Date: 04/21/2018 ; Life Cycle Status: Active ; Vocabulary: SNOMED CT Hyperlipidemia (SNOMED CT :69642509 ) Name of Problem: Hyperlipidemia ; Recorder: HARI INFANTE RN; Confirmation: Confirmed ; Classification: Patient Stated ; Code: 53650444 ; Contributor System: PowerChart ; Last Updated: 03/04/2014 19:31 EDT ; Life Cycle Date: 08/07/2013 ; Life Cycle Status: Active ; Vocabulary: SNOMED CT Hypertension (SNOMED CT :72738482 ) Name of Problem: Hypertension ; Recorder: HARI INFANTE RN; Confirmation: Confirmed ; Classification: Patient Stated ; Code: 61152722 ; Contributor System: PowerChart ; Last Updated: 03/04/2014 19:31 EDT ; Life Cycle Date: 08/07/2013 ; Life Cycle Status: Active ; Vocabulary: SNOMED CT Impaired vision (SNOMED CT :47757677 ) Name of Problem: Impaired vision ; Recorder: HARI INFANTE RN; Confirmation: Confirmed ; Classification: Patient Stated ; Code: 70294222 ; Contributor System: [employer]Chart ; Last Updated: 03/04/2014 19:31 EDT ; Life Cycle Date: 08/07/2013 ; Life Cycle Status: Active ; Vocabulary: SNOMED CT Renal calculus (SNOMED CT :655728373 ) Name of Problem: Renal calculus ; Recorder: HARI INFANTE RN; Confirmation: Confirmed ; Classification: Patient Stated ; Code: 812116700 ; Contributor System: PowerChart ; Last Updated: 03/04/2014 19:31 EDT ; Life Cycle Date: 08/07/2013 ; Life Cycle Status: Active ; Vocabulary: SNOMED CT Renal disease (SNOMED CT :152504898 ) Name of Problem: Renal disease ; Recorder: HARI INFANTE RN; Confirmation: Confirmed ; Classification: Patient Stated ; Code: 446161491 ; Contributor System: PowerChart ; Last Updated: 03/04/2014 19:31 EDT ; Life Cycle Date: 08/07/2013 ; Life Cycle Status: Active ; Vocabulary: SNOMED CT Skin cancer (SNOMED CT :2928433575 ) Name of Problem: Skin cancer ; Recorder: HARI INFANTE RN; Confirmation: Confirmed ; Classification: Patient Stated ; Code: 3842720787 ; Contributor System: [employer] LabsChart ; Last Updated: 03/04/2014 19:31 EDT ; Life Cycle Date: 08/07/2013 ; Life Cycle Status: Active ; Vocabulary: SNOMED CT Stented coronary artery (SNOMED CT :1854819324 ) Name of Problem: Stented coronary artery ; Recorder: HARI INFANTE RN; Confirmation: Confirmed ; Classification: Patient Stated ; Code: 4767797109 ; Contributor System: PowerChart ; Last Updated: 03/04/2014 19:31 EDT ; Life Cycle Date: 08/07/2013 ; Life Cycle Status: Active ; Vocabulary: SNOMED CT Diagnoses(Active) Palpitations Date: 05/21/2021 ; Diagnosis Type: Reason For Visit ; Confirmation: Complaint of ; Clinical Dx: Palpitations ; Classification: Medical ; Clinical Service: Emergency medicine ; Code: PNED ; Probability: 0 ; Diagnosis Code: [id number] ED Height and Weight Height Source : Stated Height Entry Format : [place] Height, Feet : 5 ft(Converted to: 152 cm, 60 Inch) Height, Inches : 6 Inch(Converted to: 0 ft 6 Inch, 15.24 cm) Clinical Height : 167.64 cm Weight Source, ED : Critical estimated dosing weight Weight Entry Format : [place] Weight, Pounds : 160 lb Clinical Dosing Weight : 72.73 kg Body Surface Area (BSA) : 1.82 m2 Body Mass Index : 25.9 kg/m2 (HI) [place] Body Weight (IBW) : 62.88 kg Kimberly Castaneda Rn - 05/21/2021 2:17 EDT Electronically signed by [facility], [facility] Conversion Municipal Firefighter Cerner at 01/08/2023 3:33 PM CDT documented in this encounter Plan of Treatment Not on file documented as of this encounter Visit Diagnoses Not on filedocumented in this encounter Care Teams Manager Of Community Relations Relationship Specialty Start Date End Date Dillan Donnelly MD [address] [place] [address] [place] [address] PCP - General Adolescent Medicine 07/20/22 01/03/23 Cory Finley MD [address] [facility] [address] [place] [address] PCP - General Family Medicine 01/04/23 documented as of this encounter
--- OUTSIDE RECORDS SUMMARY | 2025-09-12 16:03 | XMS_ITS | Encounter Summary ---
Author Organization [employer] ([place], [place], [place], [place], [place]) Address [address] [place] [address] Care Team Providers Care Peanut Farmer Name Role Phone Dillan Donnelly MD Primary Care Provider [phone] Cory Finley MD Primary Care Provider [phone] Encounter Details Date Type Department Care Team (Late st Contact Info) Description 05/21/2021 Transcribed Document [facility] Family [place] [address] ProviderCitlali MD [address] [place] [address] Social History Tobacco Use Types Packs/Day Years Used Date Smoking Tobacco: Never Assessed Sex and Gender Information Value Date Recorded Sex Assigned at Not on file Legal Sex Male 1:29 PM CDT Gender Identity Not on file Sexual Orientation Not on file documented as of this encounter Miscellaneous Notes * Cerner Conversion Note - Citlali Bhandari MD - 05/21/2021 3:35 AM CDT ED Discharge Entered On: 05/21/2021 3:36 EDT Performed On: 05/21/2021 3:35 EDT by Luz Garner RN-PATIENT CARE BEDSIDE NON-EXEMPT Discharge Process Patient Disposition : Discharge Personal Belongings With Patient : Yes Patient Education Completed : Yes Teaching Evaluation : Verbalizes understanding IV Discontinued : Yes Nursing Documentation Completed : Yes Luz Garner RN-PATIENT CARE BEDSIDE NON-EXEMPT - 05/21/2021 3:35 EDT ED Discharge Discharge To : Home without planned follow-up Mode Of Departure : Ambulatory Accompanied By : Spouse Discharge Instructions Reviewed With, Opportunity For Questions Given : Patient, Spouse Prescriptions Given to Patient : Yes Luz Garner, RN-PATIENT CARE BEDSIDE NON-EXEMPT - 05/21/2021 3:35 EDT Electronically signed by [facility], [facility] Conversion Preprint Analyst Cerner at 01/08/2023 3:20 PM CDT documented in this encounter Plan of Treatment Not on file documented as of this encounter Visit Diagnoses Not on filedocumented in this encounter Care Teams Peanut Farmer Relationship Specialty Start Date End Date Dillan Donnelly MD [address] [place] [facility] [address] [place], [place] [id number] PCP - General Adolescent Medicine 07/20/22 01/03/23 Cory Finley MD [address] [place] [address] [address] [place] [address] PCP - General Family Medicine 01/04/23 documented as of this encounter
--- OUTSIDE RECORDS SUMMARY | 2025-09-12 16:03 | XMS_ITS | Encounter Summary ---
Author Organization [employer] ([place], [place], [place], [place], [place]) Address [address] [place] [address] Care Team Providers Care Life Skills Worker Name Role Phone Dillan Donnelly MD Primary Care Provider [phone] Cory Finley MD Primary Care Provider [phone] Encounter Details Date Type Department Care Team (Late st Contact Info) Description 02/02/2019 Transcribed Document [facility] [place] Family [place] [address] ProviderCitlali MD [address] [place] [address] Social History Tobacco Use Types Packs/Day Years Used Date Smoking Tobacco: Never Assessed Sex and Gender Information Value Date Recorded Sex Assigned at Not on file Legal Sex Male 1:29 PM CDT Gender Identity Not on file Sexual Orientation Not on file documented as of this encounter Miscellaneous Notes * Jess Conversion Note - Citlali ProviderMD - 02/02/2019 2:07 AM CDT Electronically signed by Ivette [facility] Conversion Band Singer Jess at 01/08/2023 3:25 PM CDT documented in this encounter Plan of Treatment Not on file documented as of this encounter Visit Diagnoses Not on filedocumented in this encounter Care Teams Life Skills Worker Relationship Specialty Start Date End Date Dillan Donnelly MD [address] [place] [address] PCP - General Adolescent Medicine 07/20/22 01/03/23 Cory Finley MD [address] [place] [address] PCP - General Family Medicine 01/04/23 documented as of this encounter
--- OUTSIDE RECORDS SUMMARY | 2025-09-12 16:03 | XMS_ITS | Encounter Summary ---
Author Organization [employer] ([place], [place], [place], [place], [place]) Address [address] [place] [address] Care Team Providers Care Mohs Surgeon Name Role Phone Dillan Donnelly MD Primary Care Provider [phone] Cory Finley MD Primary Care Provider [phone] Encounter Details Date Type Department Care Team (Late st Contact Info) Description 01/27/2019 Transcribed Document [facility] [place] Family Medicine [facility] [place] [address] ProviderCitlali MD [address] [place] [address] Social History Tobacco Use Types Packs/Day Years Used Date Smoking Tobacco: Never Assessed Sex and Gender Information Value Date Recorded Sex Assigned at Not on file Legal Sex Male 1:29 PM CDT Gender Identity Not on file Sexual Orientation Not on file documented as of this encounter Miscellaneous Notes * Cerner Conversion Note - Citllai Bhandari MD - 01/27/2019 9:24 AM CDT [facility] Endo PACU Summary Primary Physician: CHIQUI CHUN MD Finalized Date/Time: 01/27/19 10:14:19 Pt. Name: VALDEZ MCGOWAN MALIK /Sex: 1935 Male Med Rec #: [id number] Physician: CHIQUI CHUN MD Financial #: [id number] Pt. Type: O Room/Bed: / Admit/Disch: 05/07/19 08:06:00 - Institution: [facility] Endo PACU Case Times Entry 1 In PACU I 01/27/19 09:40:00 Ready for PACU 01/27/19 10:14:00 Discharge Discharge from PACU 01/27/19 10:14:00 I Last Modified By: Jackie Antonio Rn 01/27/19 10:14:15 [facility] Endo PACU Case Times Audit 01/27/19 10:14:15 Value Stream Manager: [id number] Modifier: [id number] <+> 1 Ready for PACU Discharge <+> 1 Discharge from PACU I Finalized By: Jackie Antonio, Rn Document Signatures Signed By: Jackie Antonio Rn 01/27/19 10:14 Electronically signed by Ivette [facility] Conversion Quality Assurance Consultant Cerner at 01/08/2023 3:15 PM CDT documented in this encounter Plan of Treatment Not on file documented as of this encounter Visit Diagnoses Not on filedocumented in this encounter Care Teams Mohs Surgeon Relationship Specialty Start Date End Date Dillan Donnelly MD [address] [facility] [address] [place] [address] PCP - General Adolescent Medicine 07/20/22 01/03/23 Cory Finley MD [address] [facility] [address] [place] [address] PCP - General Family Medicine 01/04/23 documented as of this encounter
--- OUTSIDE RECORDS SUMMARY | 2025-09-12 16:03 | XMS_ITS | Encounter Summary ---
Author Organization [facility] Address [address] [place] [address] Care Team Providers Care Supervisory Historian Name Role Phone Danisha Nguyen TR Primary Care Provider [phone] Encounter Details Date Type Department Care Team (Latest Contact Info) Description 08/19/2025 Travel Social History Tobacco Use Types Packs/Day [...] 1:15 PM EST Office Visit [facility] [address] [place] [address] [place] [address] Huang Valdez MD [address] [place] [address] [place], [place] [id number] 09/29/2025 2:45 PM EST Office Visit [facility] [address] [place] [address] [place] [address] Willow Rodgers APRN [address] [place] [address] 09/29/2025 2:45 PM EST Clinical Support No Requirements [facility] [address] [place] [address] [place] [address] documented as of this encounter Visit Diagnoses Not on filedocumented in this encounter Care Teams Supervisory Historian Relationship Specialty Start Date End Date Danisha Nguyen APRN [address] [place] [id number] PCP - General Family Medicine 02/05/24 documented as of this encounter
--- OUTSIDE RECORDS SUMMARY | 2025-09-12 16:03 | XMS_ITS | Encounter Summary ---
Author Organization [employer] ([place], [place], [place], [place], [place]) Address [address] [place] [address] Care Team Providers Care Inflated Pad Buffer Name Role Phone Dillan Donnelly MD Primary Care Provider [phone] Cory Finley MD Primary Care Provider [phone] Encounter Details Date Type Department Care Team (Late st Contact Info) Description 01/27/2019 Transcribed Document [facility] Family Medicine [facility] [place] [address] ProviderCitlali MD [address] [place] [id number] Social History Tobacco Use Types Packs/Day Years Used Date Smoking Tobacco: Never Assessed Sex and Gender Information Value Date Recorded Sex Assigned at Not on file Legal Sex Male 1:29 PM CDT Gender Identity Not on file Sexual Orientation Not on file documented as of this encounter Miscellaneous Notes * Cerner Conversion Note - Citalli Bhandari MD - 01/27/2019 9:56 AM CDT Patient Education Materials Follows: High-Fiber Diet Fiber, also called dietary fiber, [...] ??? Always check the fiber content on the?nutrition facts label of any prepackaged food. Look [...] Barley. Bulgur wheat. Millet. Bran muffins. Popcorn. Ho Ho Kus wafer crackers. VegetablesSweet potatoes. Spinach. Kale. Artichokes. [...] 09/09/2006 Document Revised: 02/14/2017 Document Reviewed: 02/22/2015 Engage Interactive Patient Education ? 2017 [employer]. Oncology Colon Polyps Introduction Polyps are tissue growths [...] is more likely to develop in people who:??? Have a family history of colon cancer or colon polyps. ??? Are older than 50 or older than 45 if they are . ??? Have inflammatory bowel disease, such as ulcerative colitis or Crohn disease. ??? Are overweight. ??? Smoke cigarettes. ??? Do not get enough exercise. ??? Drink too much alcohol. ??? Eat a diet that is:? High in fat and red meat. ? Low in fiber. ??? Had childhood cancer that was treated with abdominal radiation. What are the signs or symptoms? Most polyps do not cause symptoms. If you have symptoms, they may include: ??? Blood coming from your rectum when having a bowel movement. ??? Blood in your stool.?The stool may look dark red or black. [...] cancer treatment. Follow these instructions at home: Diet??? Eat plenty of fiber, such as fruits, [...] recommended by your health care provider. General instructions??? Do notsmoke cigarettes. ??? Do notdrink alcohol [...] 06/05/2005 Document Revised: 02/14/2017 Document Reviewed: 07/30/2016 ? 2017 Elsevier Radiology Colonoscopy, Adult, Care After This sheet gives [...] slower pace than normal. ? Eat soft, lgks-eg-nhoefk foods. ? Rest often. ??? Take mvkq-asw-cbxaicc or prescription medicines only as told by your health care provider. ??? It is up to you to get the results of your procedure. Ask your health care provider, or the department performing the procedure, when your results will be ready. Relieving cramping and bloating??? Try walking around when you have cramps or feel bloated. ??? Apply heat to your abdomen as told by your health care provider. Use a heat source that your health care provider recommends, such as a moist heat pack or a heating pad. ? Place a towel between your skin and the heat source. ? Leave the heat on for 20?30 minutes. ? Remove the heat if your [...] ??? You have blood in your stool 2?3 days after the procedure. Get help right [...] 04/23/2005 Document Revised: 06/03/2017 Document Reviewed: 11/20/2016 ElseRypple Interactive Patient Education ? 2017 [employer]. Electronically signed by Ivette, [facility] Conversion Dough Machine Operator Cerner at 01/08/2023 3:06 PM CDT documented in this encounter Plan of Treatment Not on file documented as of this encounter Visit Diagnoses Not on filedocumented in this encounter Care Teams Inflated Pad Buffer Relationship Specialty Start Date End Date Dillan Donnelly MD [address] [place] [address] PCP - General Adolescent Medicine 07/20/22 01/03/23 Cory Finley MD [address] [facility] [address] [place] [address] PCP - General Family Medicine 01/04/23 documented as of this encounter
--- OUTSIDE RECORDS SUMMARY | 2025-09-12 16:03 | XMS_ITS | Encounter Summary ---
Author Organization [employer] ([place], [place], [place], [place], [place]) Address [address] [place] [address] Care Team Providers Care Business Strategy Manager Name Role Phone Dillan Donnelly MD Primary Care Provider [phone] Cory Finley MD Primary Care Provider [phone] Encounter Details Date Type Department Care Team (Late st Contact Info) Description 01/13/2019 Transcribed Document [facility] [place] [facility] [place] [address] ProviderCitlali MD [address] [place] [address] Social History Tobacco Use Types Packs/Day Years Used Date Smoking Tobacco: Never Assessed Sex and Gender Information Value Date Recorded Sex Assigned at Not on file Legal Sex Male 1:29 PM CDT Gender Identity Not on file Sexual Orientation Not on file documented as of this encounter Miscellaneous Notes * Cerner Conversion Note - Citlali ProviderMD - 01/13/2019 1:32 PM CDT ED Event Note Entered On: 01/13/2019 13:33 EDT Performed On: 01/13/2019 13:32 EDT by FILEMON RUBIO RN ED Event Note ED Event Date/Time : 01/13/2019 13:32 EDT ED Event Location : Assigned room ED Description of Event : Pt was given enema per order with good results. Pt given instructions and verb undersdtanding and left amb FILEMON RUBIO RN - 01/13/2019 13:32 EDT documented in this encounter Plan of Treatment Not on file documented as of this encounter Visit Diagnoses Not on filedocumented in this encounter Care Teams Business Strategy Manager Relationship Specialty Start Date End Date Dillan Donnelly MD [address] [place] [address] PCP - General Adolescent Medicine 07/20/22 01/03/23 Cory Finley MD [address] [place] [address] [address] [place] [address] PCP - General Family Medicine 01/04/23 documented as of this encounter
--- OUTSIDE RECORDS SUMMARY | 2025-09-12 16:03 | XMS_ITS | Encounter Summary ---
Author Organization [employer] ([place], [place], [place], [place], [place]) Address [address] [place] [address] Care Team Providers Care Ship Painter Helper Name Role Phone Dillan Donnelly MD Primary Care Provider [phone] Cory Finley MD Primary Care Provider [phone] Encounter Details Date Type Department Care Team (Late st Contact Info) Description 05/21/2021 Transcribed Document [facility] [place] [address] ProviderCitlali MD [address] [place] [address] Social History Tobacco Use Types Packs/Day Years Used Date Smoking Tobacco: Never Assessed Sex and Gender Information Value Date Recorded Sex Assigned at Not on file Legal Sex Male 1:29 PM CDT Gender Identity Not on file Sexual Orientation Not on file documented as of this encounter Miscellaneous Notes * Cerner Conversion Note - Citlali Bhandari MD - 05/21/2021 3:26 AM CDT [facility] [place] [address] VALDEZ MCGOWAN :1935 Visit Time:05/21/2021 Your Visit Summary Your Care Team Primary Provider: RUSTAM MENDOZA Secondary Provider: Your Diagnosis Palpitations Palpitations Peripheral edema Medical Information You may obtain a copy of your Emergency Department [...] do next Follow-Up Appointments Follow Up with LIVAN JAFFE When Within 2 to 3 days Where: [address] [place] [address]- Business (1) Follow Up with ADRIANO MONTELONGO When Within 2 to 3 days Where: [address] [place] [address] [place] [address]- Business (1) Allergies Crestor (Muscle stiffness, Muscle spasm) Livalo (Muscle stiffness, Muscle spasm) penicillins pravastatin (muscle weakness, muscle weakness) simvastatin (elevated lft s, elevated lft s) tetracycline (nausea, nausea) Immunizations This Visit No Immunizations Found Medications What How Much When Instructions Next Dose furosemide (Lasix 20 mg oral tablet) 1 Tablet(s) Oral Every Day Duration: 3 Day(s) Printed Prescription aspirin 81 Milligram(s) Oral Every Day carvedilol (carvedilol 12.5 mg oral tablet) 1 Tablet(s) Oral Two Times A Day clopidogrel (Plavix 75 mg oral tablet) 1 Tablet(s) Oral Every Day linaclotide (Linzess 290 mcg oral capsule) Oral Every Day nitroglycerin (nitroglycerin 0.4 mg sublingual spray) 1 Amenia(s) SubLINgual Every 5 minutes as needed for for chest pain ondansetron (Zofran 4 mg oral tablet) 1 Tablet(s) Oral Every 8 Hours as needed for Nausea polyethylene glycol 3350 (MiraLax) 1 Gram(s) Oral [...] This Visit (last charted value for your 05/21/2021 visit) Hematology 05/21/2021 2:35 AM WBC: 6.1 K/uL -- Normal range between ( 3.6 and 9.5 ) RBC: 3.62 Million/uL -- Normal range between ( 4.20 and 5.70 ) Hct: 31.7 % -- Normal range between ( 40.1 and 51.0 ) Hgb: 9.8 g/dL -- Normal range between ( 13.5 and 17.3 ) Platelet Count: 236 K/uL -- Normal range between ( 163 and 369 ) MCH: 27.1 pg -- Normal range between ( 25.6 and 32.2 ) MCHC: 30.9 Gram/dL -- Normal range between ( 32.2 and 36.5 ) MCV: 87.6 fL -- Normal range between ( 79.0 and 94.8 ) RDW: 14.6 % -- Normal range between ( 11.7 and 14.9 ) MPV: 11.6 fL -- Normal range between ( 9.4 and 12.4 ) General Chemistry 05/21/2021 2:35 AM Creatinine Level: 1.10 mg/dL -- Normal range between ( 0.70 and 1.30 ) Sodium Level: 140 mmol/L -- Normal range between ( 136 and 146 ) Potassium Level: 4.1 mmol/L -- Normal range between ( 3.5 and 5.1 ) Chloride Level: 112 mmol/L -- Normal range between ( 102 and 112 ) Carbon Dioxide Level: 23 mmol/L -- Normal range between ( 21 and 32 ) Anion Gap: 9 -- Normal range between ( 9 and 20 ) Bilirubin Total: 0.3 mg/dL -- Normal range between ( 0.2 and 1.2 ) A/G Ratio: 1.2 -- Normal range between ( 1.1 and 2.5 ) ALT: 42 Units/Liter -- Normal range between ( 16 and 61 ) AST: 32 Units/Liter -- Normal range between ( 5 and 37 ) Globulin: 2.8 Gram/dL -- Normal range between ( 1.5 and 4.5 ) Alk Phos: 100 Units/Liter -- Normal range between ( 27 and 136 ) Bun/Creatinine: 16.4 -- Normal range between ( 8.0 and 20.0 ) Calcium Level: 8.6 mg/dL -- Normal range between ( 8.4 and 10.1 ) eGFR : >60 mL/min/1.73m2 eGFR NonAfrican: >60 mL/min/1.73m2 Glucose Level: 135 mg/dL -- Normal range between ( 74 and 106 ) Magnesium Level: 2.2 mg/dL -- Normal range between ( 1.5 and 2.4 ) Blood Urea Nitrogen: 18 mg/dL -- Normal range between ( 7 and 22 ) Phosphorus: 3.1 mg/dL -- Normal range between ( 2.5 and 4.9 ) Protein Total: 6.2 Gram/dL -- Normal range between ( 6.4 and 8.2 ) Albumin Level: 3.4 Gram/dL -- Normal range between ( 3.4 and 5.0 ) Cardiac Specific Markers 05/21/2021 2:35 AM Troponin I Ultra: <0.015 ng/mL -- Normal range between ( 0.015 and 0.045 ) ProBNP: 999 pg/mL -- Normal range between ( 0 and 450 ) Education Materials Palpitations Palpitations are feelings that your heartbeat is irregular or is faster than normal. It may feel like your heart is fluttering or skipping a beat. Palpitations are usually not a serious problem. They may be caused by many things, including smoking, caffeine, alcohol, stress, and certain medicines or drugs. Most causes of palpitations are not serious. However, some palpitations can be a sign of a serious problem. You may need further tests to rule out serious medical problems. Follow these instructions at home: Pay attention to any changes in your condition. Take these actions to help manage your symptoms: Eating and drinking ??? Avoid foods and drinks that may cause palpitations. These may include: ? Caffeinated coffee, tea, soft drinks, diet pills, and energy drinks. ? Chocolate. ? Alcohol. Lifestyle ??? Take steps to reduce your stress and anxiety. Things that can help you relax include: ? Yoga. ? Mind-body activities, such as deep breathing, meditation, or using words and images to create positive thoughts (guided imagery). ? Physical activity, such as swimming, jogging, or walking. Tell your health care provider if your palpitations increase with activity. If you have chest pain or shortness of breath with activity, do not continue the activity until you are seen by your health care provider. ? Biofeedback. This is a method that helps you learn to use your mind to control things in your body, such as your heartbeat. ??? Do not use drugs, including cocaine or ecstasy. Do not use marijuana. ??? Get plenty of rest and sleep. Keep a regular bed time. General instructions ??? Take hyrb-kfd-soofkwm and prescription medicines only as told by your health care provider. ??? Do not use any products that contain nicotine or tobacco, such as cigarettes and e-cigarettes. If you need help quitting, ask your health care provider. ??? Keep all follow-up visits as told by your health care provider. This is important. These may include visits for further testing if palpitations do not go away or get worse. Contact a health care provider if you: ??? Continue to have a fast or irregular heartbeat after 24 hours. ??? Notice that your palpitations occur more often. Get help right away if you: ??? Have chest pain or shortness of breath. ??? Have a severe headache. ??? Feel dizzy or you faint. Summary ??? Palpitations are feelings that your heartbeat is irregular or is faster than normal. It may feel like your heart is fluttering or skipping a beat. ??? Palpitations may be caused by many things, including smoking, caffeine, alcohol, stress, certain medicines, and drugs. ??? Although most causes of palpitations are not serious, some causes can be a sign of a serious medical problem. ??? Get help right away if you faint or have chest pain, shortness of breath, a severe headache, or dizziness. This information is not intended to replace advice given to you by your health care provider. Make sure you discuss any questions you have with your health care provider. Document Revised: 10/22/2018 Document Reviewed: 10/22/2018 [employer] Patient Education ?? 2020 [employer]. Edema Edema is an abnormal buildup of fluids in the body tissues and under the skin. Swelling of the legs, feet, and ankles is a common symptom that becomes more likely as you get older. Swelling is also common in looser tissues, like around the eyes. When the affected area is squeezed, the fluid may move out of that spot and leave a dent for a few moments. This dent is called pitting edema. There are many possible causes of edema. Eating too much salt (sodium) and being on your feet or sitting for a long time can cause edema in your legs, feet, and ankles. Hot weather may make edema worse. Common causes of edema include: ??? Heart failure. ??? Liver or kidney disease. ??? Weak leg blood vessels. ??? Cancer. ??? An injury. ??? . ??? Medicines. ??? Being obese. ??? Low protein levels in the blood. Edema is usually painless. Your skin may look swollen or shiny. Follow these instructions at home: ??? Keep the affected body part raised (elevated) above the level of your heart when you are sitting or lying down. ??? Do not sit still or stand for long periods of time. ??? Do not wear tight clothing. Do not wear garters on your upper legs. ??? Exercise your legs to get your circulation going. This helps to move the fluid back into your blood vessels, and it may help the swelling go down. ??? Wear elastic bandages or support stockings to reduce swelling as told by your health care provider. ??? Eat a low-salt (low-sodium) diet to reduce fluid as told by your health care provider. ??? Depending on the cause of your swelling, you may need to limit how much fluid you drink (fluid restriction). ??? Take hmgn-wcb-finaopj and prescription medicines only as told by your health care provider. Contact a health care provider if: ??? Your edema does not get better with treatment. ??? You have heart, liver, or kidney disease and have symptoms of edema. ??? You have sudden and unexplained weight gain. Get help right away if: ??? You develop shortness of breath or chest pain. ??? You cannot breathe when you lie down. ??? You develop pain, redness, or warmth in the swollen areas. ??? You have heart, liver, or kidney disease and suddenly get edema. ??? You have a fever and your symptoms suddenly get worse. Summary ??? Edema is an abnormal buildup of fluids in the body tissues and under the skin. ??? Eating too much salt (sodium) and being on your feet or sitting for a long time can cause edema in your legs, feet, and ankles. ??? Keep the affected body part raised (elevated) above the level of your heart when you are sitting or lying down. This information is not intended to replace advice given to you by your health care provider. Make sure you discuss any questions you have with your health care provider. Document Revised: 01/27/2020 Document Reviewed: 10/12/2017 [employer] Patient Education ?? 2020 [employer] Emergency Awareness and Preventative Care STROKE is [...] Assistance with quitting is available by contacting 3-652-WEKXNOW. This is a free resource providing counseling, [...] CPR? There are two easy steps: Call 9-1-1 if you see a teen or adult [...] radiology, or pathology physicians. Patient Name:VALDEZ MCGOWAN I have received this information and was given the opportunity to ask questions. Patient/Upholstery Covers Inspector Name: Patient/Upholstery Covers Inspector Signature: Relationship to Patient: Clinician/Hospital Upholstery Covers Inspector Signature: Please Provide a Telephone Number Where You Can Be Reached: Is it Permissible To Leave a Message? Date: documented in this encounter Plan of Treatment Not on file documented as of this encounter Visit Diagnoses Not on filedocumented in this encounter Care Teams Ship Painter Helper Relationship Specialty Start Date End Date Dillan Donnelly MD [address] [facility] [address] [place] [address] PCP - General Adolescent Medicine 07/20/22 01/03/23 Cory Finley MD [address] [place] [address] [address] [place] [address] PCP - General Family Medicine 01/04/23 documented as of this encounter
--- OUTSIDE RECORDS SUMMARY | 2025-09-12 16:04 | XMS_ITS | Encounter Summary ---
Author Organization [employer] Address [address] [place] [address] Care Team Providers Care Ophthalmic Surgeon Name Role Phone Danisha Nguyen TR Primary Care Provider [phone] Encounter Details Date Type Department Care Team (Late st Contact Info) Description 08/25/2025 Readmission Management [facility] NURSE CALL [facility]ENTER [address] [place] [phone] Augie Matute, RN Social History Tobacco Use Types Packs/Day Years [...] or training? Not on file Preferred Language Singaporean 08/23/2025 Sex and Gender Information Value Date Recorded Sex Assigned at Not on file Legal Sex Male 1:10 PM EST Gender Identity Not on file Sexual Orientation Not on file documented as of this encounter Miscellaneous Notes * Outreach Note - Augie Matute RN - 08/25/2025 7:30 PM EST Prep Survey Flowsheet Row [facility] L[facility] score less than 10 ? Yes Eligibility Readm Mgmt Discharge diagnosis GI bleed-EGD this visit Does the patient have one of the following disease processes/diagnoses(primary or secondary)? Other Does the patient have Home health ordered? No Is there a DME ordered? No Prep survey completed? Yes AUGIE Kwon - Registered Nurse documented in this encounter Plan of Treatment Upcoming Encounters Date Type Department Care Team (Late st Contact Info) Description 09/20/2025 1:15 PM EST Office Visit [facility] PRIMARY [facility] [address] [place] [address] [place] [phone] Huang Valdez MD [address] [place] [address] [place] [address] 09/29/2025 2:45 PM EST Office Visit [facility] CARDIOLOGY [address] [place] [address] [place] [phone] Willow Rodgers APRN [address] [place] [address] 09/29/2025 2:45 PM EST Clinical Support No Requirements [facility] [address] [place] [address] [place] [phone] documented as of this encounter Visit Diagnoses Not on filedocumented in this encounter Care Teams Ophthalmic Surgeon Relationship Specialty Start Date End Date Danisha Nguyen APRN [address] [place] [address] PCP - General Family Medicine 02/05/24 documented as of this encounter
--- OUTSIDE RECORDS SUMMARY | 2025-09-12 16:04 | XMS_ITS | Encounter Summary ---
Author Organization [facility] Address [address] [place] [address] Care Team Providers Care Resident Care Supervisor Name Role Phone PatrickDanisha anne Kimberlyn ARMANDO Primary Care Provider [phone] Encounter Details Date Type Department Care Team (Late st Contact Info) Description 09/02/2025 Telephone [facility] [address] [place] [address] Navigator, Lung Social History Tobacco Use Types Packs/Day Years [...] or training? Not on file Preferred Language Emirati 08/23/2025 Sex and Gender Information Value Date Recorded Sex Assigned at Not on file Legal Sex Male 1:10 PM EST Gender Identity Not on file Sexual Orientation Not on file documented as of this encounter Miscellaneous Notes * Telephone Encounter - Navigator, Lung - 09/02/2025 11:24 AM EST Provider Call Reason for call: Upcoming Outcome of call: Answered Additional Notes: [phone] PCP staff took message for PCP to fu with patient regarding lung finding/fu at appointment on 09/10/2025. Will update PCP info in EPM. [facility] Provider Name: Natalee Sequeira * Telephone Encounter - Navigator, Lung - 09/02/2025 11:23 AM EST Provider Call Reason for call: Upcoming Outcome of call: Wrong Number Additional Notes: [phone] Provider is no longer at this location. [facility] Provider Name: Natalee Sequeira * Telephone Encounter - Navigator, Lung - 09/02/2025 10:29 AM EST Patient Call Reason for call: Upcoming Outcome of call: Returned Call Additional Notes: A call for [facility] to ([facility]) from was missed on 09-02-2025 10:14:50 AM (eastern time)Call was made on 09-02-2025 10:08:34 AM (eastern time) with a call result of MISSED. Patient Valdez Grier 1935, FLORA called and LVM regarding imaging performed and letter. Wanted return call. Natalee Romero documented in this encounter Plan of Treatment Upcoming Encounters Date Type Department Care Team (Late st Contact Info) Description 09/20/2025 1:15 PM EST Office Visit [facility] PRIMARY CARE [address] [place] [address] [place] [address] Huang Valdez MD [address] [place] [address] [place] [address] 09/29/2025 2:45 PM EST Office Visit [facility] CARDIOLOGY [address] [place] [address] [place] [address] Willow Rodgers APRN [address] [place] [address] 09/29/2025 2:45 PM EST Clinical Support No Requirements [facility] [address] [place] [address] [place] [address] documented as of this encounter Visit Diagnoses Not on filedocumented in this encounter Care Teams Resident Care Supervisor Relationship Specialty Start Date End Date Danisha Nguyen APRN [address] [place] [id number] PCP - General Family Medicine 02/05/24 documented as of this encounter
--- NOTE | 2025-09-12 17:37 | PC.NURSE ---
Patient has done fair this shift. He has had one BM this shift. Remains on room air. He is alert to self and place. remains at bedside. Lung sounds clear. No c/o pain, nausea or vomiting this shift.
[2025-09-12] MEDS: TAMSULOSIN 0.4MG CAPSULE 0.4 MG PO (20:46)
[2025-09-13 04:00] VITALS: BP 150/68; PULSE 92; RESP 17; TEMP 36.6; O2SAT 97; BMI 22.8
[2025-09-13 06:01] LABS: Hematocrit 24.6 % (42.0-52.0); Hemoglobin 7.6 g/dL (14.1-18.0); Immature Granulocytes % 0.4 %; Mean Corpuscular HGB Conc 30.9 g/dL (31.8-35.4); Mean Corpuscular Hemoglobin 26.4 pg (27.0-31.2); Mean Corpuscular Volume 85.4 fl (80-94); Nucleated Red Blood Cells % 0.4 %; Platelet Count 117 K/mm3 (142-424); Red Blood Count 2.88 M/mm3 (4.60-6.20); Red Cell Distribution Width-SD 50.2 fL; White Blood Count 5.0 K/mm3 (4.8-10.8)
[2025-09-13 06:10] LABS: Albumin Level 3.0 g/dl (3.5-5.0); Chloride 111 mmol/L (98-107); Potassium 3.9 mmoL/L (3.5-5.1); Sodium 135 mmol/L (136-145)
[2025-09-13 06:13] LABS: Alanine Aminotransferase 13 U/L (12-78); Albumin/Globulin Ratio 1.6 (1.1-1.8); Alkaline Phosphatase 82 U/L (38-126); Anion Gap 5.9 mEq/L (5-15); Aspartate Amino Transferase 23 U/L (17-59); Bilirubin,Total 1.2 mg/dl (0.2-1.3); Blood Urea Nitrogen 12 mg/dl (9-20); Carbon Dioxide 22 mmol/L (22.0-30.0); Creatinine Clearance Estimated 48 mL/min (50-200); Creatinine,Serum 0.80 mg/dl (0.66-1.25); Estimated Glomerular Filt Rate 91 ml/min (>60); GFR (African American) 111 ML/MIN (>60); Globulin 1.9 g/dL (1.3-3.2); Glucose 83 mg/dl (74-100); Total Protein,Serum 4.9 g/dl (6.3-8.2)
[2025-09-13 06:14] LABS: Calcium 8.7 mg/dl (8.4-10.2); Magnesium 2.2 mg/dl (1.6-2.3)
[2025-09-13] MEDS: SUCRALFATE 1GM/10ML SUSP UDC 1 GM NG-TUBE (06:17)
--- NOTE | 2025-09-13 07:19 | EXP.DC.SUM ---
General Admission date:: 09/11/25 Discharge date: 09/13/25 HPI HPI HPI: Mr. Grier is a pleasant 89-year-old male with history of dementia who presented to the ER with concern for black stools and weakness. Initial workup showed concern for anemia with hemoglobin of 6.7. Of note he had labs obtained by his PCP in the past 2 days and they came back abnormal. Patient was informed to come to the ER for evaluation for his recurrent anemia. Given his anemia, ER consulted medicine for admission and further management of possible GI bleed. After arriving to the unit, patient significant other is available to provide additional history as patient is a very poor historian. She states he was actually admitted to [facility] on 1128 after arriving to the ER due to concern for black stools. He was there for approximately a week. EGD was performed that found duodenal erosions with no active bleeding. Had ectasia in the duodenum and stomach. 3 areas were cauterized with argon laser and 2 clips were placed. Received blood transfusion during that admission and was discharged with a hemoglobin of 8.7. His Eliquis had been resumed on 08/24 at 5 mg twice daily. His last dose was yesterday morning. He is not currently on iron supplementation as an outpatient. She has had previous discussions with his production supply equipment tender about risk of bleeding versus risk of stroke and need for anticoagulation. Discussed decreasing dosage and holding dosage as options. She denies that he has had any fever, vomiting, bright red blood per rectum. Hospital Course Hospital Course Hospital Course: 89-year-old male with worsening anemia in the setting of GI bleed. Recently worked up for similar presentation within the past month. Discussed case with ER physician, request admission for transfusion and further evaluation by surgery or GI if patient's condition worsens. I decided to admit for further care. Hemoglobin stable after transfusion. No further signs of bleeding. Able to advance diet. Stable discharge home with home health. 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 Hemoglobin 6.7 on admission. Status post 1 unit packed red blood cells. White count remained normal. Hemoglobin responded to mid sevens and stayed stable at 7.6 on day of discharge. Transfusion goal hemoglobin less than 7. Given significant blood loss over the past few months per chart review, will administer 1 dose of Venofer 200 mg IV during admission. Reviewed records from patient's visit to [facility] the end of July that showed EGD with duodenal erosions, angioectasia, and argon laser cauterization along with placement of 2 clips on large stomach angiectasia that bled with manipulation. Kidney function normal during admission. Surgery was consulted. No further EGD during admission. Conservatively managed. Started on pantoprazole twice daily IV and sucralfate. Will continue pantoprazole 40 mg daily and sucralfate ACHS for 1 week. Plan to follow with surgery in the outpatient setting for reevaluation of possible intervention if patient has continued bleeding. A-fib HTN - Holding anticoagulation due to GI bleed. Had extensive disease With Patient and Significant Other. Elected to Hold Anticoagulation at This Time until Follow-Up with Cardiology. Would Recommend If Patient Does Want to Resume Anticoagulation Continuing Eliquis Only at 2.5 Mg Twice Daily. Risk Assessment As Follows: [id number] Score of 5 with 7 to 10% Risk of Stroke/TIA/Thromboembolic Event Yearly. Has Bled Score of 2 with 4.2% Risk of Rebleed However He Has Bled Twice in the past Month and His Bleeding Issues Did Not Begin until Starting Eliquis Earlier This Summer. In Light of That Fact, I Have Strong Concern His Bleeding Risk Is Higher. Appears rate controlled at this time with heart rate in the 80s. Continue carvedilol 25 mg twice daily Dementia: Resume donepezil 5 mg nightly BPH: Continue tamsulosin 0.4 mg nightly Patient would like to establish with a new PCP. Referred to Dr. Correia. Has follow-up with surgery. Will follow-up with his production supply equipment tender the beginning of September. Total time spent on discharge 36 minutes in counseling, documentation, chart review, and direct care with patient. Exam Data for Last 24 hours Vital signs and Labs for Last 24 Hours: Temp Pulse Resp BP Pulse Ox O2 Del Method 97.9 F 92 H 17 150/68 H 97 Room Air 09/13/25 04:00 09/13/25 04:00 09/13/25 04:00 09/13/25 04:00 09/13/25 04:00 09/13/25 06:41 Laboratory Results - last 24 hr 09/12/25 06:52: WBC 4.8, RBC 2.87 L, Hgb 7.5 L, Hct 24.8 L, MCV 86.4, MCH 26.1 L, MCHC 30.2 L, RDW 15.8, Plt Count 134 L, MPV 12.8 H, Neut % (Auto) 64.2, Lymph % (Auto) 17.9, Woods % (Auto) 15.6 H, Eos % (Auto) 1.3, Baso % (Auto) 0.6, Neut # (Auto) 3.1, Lymph # (Auto) 0.9, Woods # (Auto) 0.7, Eos # (Auto) 0.1, Baso # (Auto) 0.0, Sodium 136, Potassium 4.2, Chloride 111 H, Carbon Dioxide 20 L, Anion Gap 9.2, BUN 18, Creatinine 0.90, Estimated Creat Clear 47, Estimated GFR 80, Est GFR ( Amer) 97, Glucose 84 D, Calcium 8.8, Magnesium 2.3, Total Bilirubin 2.1 H, AST 23 D, ALT 13, Alkaline Phosphatase 80, Total Protein 5.1 L, Albumin 3.2 L D, Globulin 1.9, Albumin/Globulin Ratio 1.7 09/12/25 13:48: Hgb 7.5 L, Hct 24.4 L 09/13/25 05:24: WBC 5.0, RBC 2.88 L, Hgb 7.6 L, Hct 24.6 L, MCV 85.4, MCH 26.4 L, MCHC 30.9 L, RDW 16.1, Plt Count 117 L, MPV 13.1 H, Neut % (Auto) 66.8, Lymph % (Auto) 13.9, Woods % (Auto) 16.7 H, Eos % (Auto) 1.6, Baso % (Auto) 0.6, Neut # (Auto) 3.4, Lymph # (Auto) 0.7, Woods # (Auto) 0.8, Eos # (Auto) 0.1, Baso # (Auto) 0.0, Sodium 135 L, Potassium 3.9, Chloride 111 H, Carbon Dioxide 22, Anion Gap 5.9, BUN 12 D, Creatinine 0.80, Estimated Creat Clear 48, Estimated GFR 91, Est GFR ( Amer) 111, Glucose 83, Calcium 8.7, Magnesium 2.2, Total Bilirubin 1.2, AST 23, ALT 13, Alkaline Phosphatase 82, Total Protein 4.9 L, Albumin 3.0 L, Globulin 1.9, Albumin/Globulin Ratio 1.6 I & O for Last 24 hours: Intake & Output 09/10/25 09/11/25 09/12/25 09/13/25 23:59 23:59 23:59 23:59 Intake Total 2139 / 2139 1030 / 1030 Output Total 0 / 0 0 / 0 Balance 2139 / 2139 1030 / 1030 Weight 64.07 kg 63.639 kg 64.546 kg Constitutional Constitutional: no acute distress, average body habitus, chronically ill appearing and cooperative *Routine HEENT Exam Head: Present normocephalic Eye: Present EOMI and PERRL ENT: Present mucous membranes moist *Routine Neck Exam Neck: Present supple; Absent lymphadenopathy *Routine Respiratory Exam Respiratory: Present CTA bilaterally; Absent rhonchi *Routine Cardiovascular Exam Cardiovascular: Present RRR *Routine Abdominal Exam Abdominal: Present soft and normoactive bowel sounds; Absent tenderness *Routine Rectal Exam Patient deferred: visual exam *Routine Exam Patient deferred: penile exam *Routine Extremities Exam Extremities: Absent cyanosis, clubbing or edema *Routine Skin Exam Skin: Present warm; Absent rash *Routine Neurological Exam Neurological: Present alert, oriented X3 and normal speech; Absent altered mental status Results Data Completed and Pending Labs on day of discharge: Labs from last 24 hours 09/13/25 09/12/25 09/12/25 05:24 13:48 06:52 WBC 5.0 4.8 RBC 2.88 L 2.87 L Hgb 7.6 L 7.5 L 7.5 L Hct 24.6 L 24.4 L 24.8 L MCV 85.4 86.4 MCH 26.4 L 26.1 L MCHC 30.9 L 30.2 L RDW 16.1 15.8 Plt Count 117 L 134 L MPV 13.1 H 12.8 H Neut % (Auto) 66.8 64.2 Lymph % (Auto) 13.9 17.9 Woods % (Auto) 16.7 H 15.6 H Eos % (Auto) 1.6 1.3 Baso % (Auto) 0.6 0.6 Neut # (Auto) 3.4 3.1 Lymph # (Auto) 0.7 0.9 Woods # (Auto) 0.8 0.7 Eos # (Auto) 0.1 0.1 Baso # (Auto) 0.0 0.0 Sodium 135 L 136 Potassium 3.9 4.2 Chloride 111 H 111 H Carbon Dioxide 22 20 L Anion Gap 5.9 9.2 BUN 12 D 18 Creatinine 0.80 0.90 Estimated Creat Clear 48 47 Estimated GFR 91 80 Est GFR ( Amer) 111 97 Glucose 83 84 D Calcium 8.7 8.8 Magnesium 2.2 2.3 Total Bilirubin 1.2 2.1 H AST 23 23 D ALT 13 13 Alkaline Phosphatase 82 80 Total Protein 4.9 L 5.1 L Albumin 3.0 L 3.2 L D Globulin 1.9 1.9 Albumin/Globulin Ratio 1.6 1.7 DS: Diagnosis Discharge Diagnosis (1) GI (gastrointestinal bleed): Status: Acute Code(s): K92.2 - Gastrointestinal hemorrhage, unspecified Qualifiers: GI bleed type/associated pathology: unspecified gastrointestinal hemorrhage type Qualified Code(s): K92.2 - Gastrointestinal hemorrhage, unspecified Problem details: Status post EGD with argon plasma coagulation and clip placement at outside facility approximately 3 weeks ago (2) Anemia: Status: Acute Code(s): D64.9 - Anemia, unspecified Qualifiers: Anemia type: unspecified type Qualified Code(s): D64.9 - Anemia, unspecified Problem details: Acute loss secondary to GI bleed (3) CABG (coronary artery bypass graft) planned: Status: Chronic Code(s): Z78.9 - Other specified health status (4) Hypertension: Status: Chronic Code(s): I10 - Essential (primary) hypertension Qualifiers: Hypertension type: primary hypertension Qualified Code(s): I10 - Essential (primary) hypertension (5) Atrial fibrillation: Status: Chronic Code(s): I48.91 - Unspecified atrial fibrillation (6) Chronic anticoagulation: Status: Chronic Code(s): Z79.01 - roasterman (current) use of anticoagulants (7) Dementia: Status: Chronic Code(s): F03.90 - Unspecified dementia, unspecified severity, without behavioral disturbance, psychotic disturbance, mood disturbance, and anxiety Meds Home Medications and Allergies Home Medications ?Medication ?Instructions ?Recorded ?Confirmed ?Type carvedilol 25 mg tablet 25 mg PO BID 06/25/22 09/12/25 History evolocumab 140 mg/mL subcutaneous 140 mg SQ QOW 06/25/22 09/12/25 History pen injector (Repatha SureClick) tamsulosin 0.4 mg capsule 0.4 mg PO HS 09/06/23 09/12/25 History thiamine HCl (vitamin B1) 250 mg 250 mg PO DAILY #90 tabs 01/26/25 09/12/25 Rx tablet donepezil 10 mg tablet 10 mg PO DAILY 09/12/25 09/12/25 History pantoprazole 40 mg tablet,delayed 40 mg PO DAILY 09/12/25 09/12/25 History release sucralfate 100 mg/mL oral 1 g (10 mL) NG ACHS 7 days #280 mL 09/13/25 Rx suspension New Prescriptions to Start Prescriptions: sucralfate Austin Arauz Allergies Allergy/AdvReac Type Severity Reaction Status Date / Time diclofenac Allergy Palpitation Verified 01/25/25 10:46 s Penicillins Allergy Verified 01/25/25 10:46 [id number] Reductase AdvReac Verified 01/25/25 10:46 Inhibitor Discharge Plan Disposition Patient Disposition: Home, Self-Care Condition: Fair Discharge Order Discharge Orders: Discharge Order (Routine); Ordered 09/13/25 Ordered By: Austin Arauz Follow up Plan Follow up with: Anita Alvarenga MD [Referring, Medical] - 09/29/25 2:45 pm Referral Note: 09/29? Dillan Correia MD [Staff Physician, Family Practice] - 10/07/25 11:00 am Andrew Beckett MD [Staff Physician, General Surgery] - 09/29/25 9:30 am Prescriptions/Medication Reconciliation: New sucralfate 100 mg/mL Suspension 1 g NG ACHS 7 Days Qty: 280 0RF Continued Repatha SureClick 140 mg/mL pen injector 140 mg SQ QOW carvedilol 25 mg tablet 25 mg PO BID tamsulosin 0.4 mg capsule 0.4 mg PO HS thiamine HCl (vitamin B1) 250 mg tablet 250 mg PO DAILY Qty: 90 11RF donepezil 10 mg tablet 10 mg PO DAILY pantoprazole 40 mg tablet,delayed release (DR/EC) 40 mg PO DAILY Discontinued aspirin 81 mg tablet,delayed release (DR/EC) 81 mg PO DAILY Problem Reconciliation Problems Reviewed?: Yes Patient Discharge Instructions ACTIVITY: Continue current activity DIET: continue same diet Patient Instructions: DI for Gastrointestinal Bleeding Print Language: Faroese Providers Primary Care Provider: Danisha Nguyen Admit Provider: Austin Arauz Attending Provider: Austin Arauz
[2025-09-13 07:54] VITALS: BP 131/78; PULSE 97; RESP 18; TEMP 36.6; O2SAT 97
[2025-09-13 08:00] VITALS: O2SAT 97
--- NOTE | 2025-09-13 08:39 | P.PN_ITS ---
Subjective Patient reports: no new complaints Exam Data for Last 24 hours Vital signs and Labs for Last 24 Hours: Temp Pulse Resp BP Pulse Ox O2 Del Method 97.8 F 97 H 18 131/78 97 Room Air 09/13/25 07:54 09/13/25 07:54 09/13/25 07:54 09/13/25 07:54 09/13/25 07:54 09/13/25 07:54 Laboratory Results - last 24 hr 09/12/25 13:48: Hgb 7.5 L, Hct 24.4 L 09/13/25 05:24: WBC 5.0, RBC 2.88 L, Hgb 7.6 L, Hct 24.6 L, MCV 85.4, MCH 26.4 L , MCHC 30.9 L, RDW 16.1, Plt Count 117 L, MPV 13.1 H, Neut % (Auto) 66.8, Lymph % (Auto) 13.9, Mitchell % (Auto) 16.7 H, Eos % (Auto) 1.6, Baso % (Auto) 0.6, Neut # (Auto) 3.4, Lymph # (Auto) 0.7, Mitchell # (Auto) 0.8, Eos # (Auto) 0.1, Baso # (Auto) 0.0, Sodium 135 L, Potassium 3.9, Chloride 111 H, Carbon Dioxide 22, Anion Gap 5.9, BUN 12 D, Creatinine 0.80, Estimated Creat Clear 48, Estimated GFR 91, Est GFR ( Amer) 111, Glucose 83, Calcium 8.7, Magnesium 2.2, Total Bilirubin 1.2, AST 23, ALT 13, Alkaline Phosphatase 82, Total Protein 4.9 L, Albumin 3.0 L, Globulin 1.9, Albumin/Globulin Ratio 1.6 I & O for Last 24 hours: Intake & Output 09/10/25 09/11/25 09/12/25 09/13/25 11:59 11:59 11:59 11:59 Intake Total 2490 / 2490 680 / 680 Output Total 0 / 0 0 / 0 0 / 0 Balance 0 / 0 2490 / 2490 680 / 680 Weight 160 lb 140 lb 4.8 oz 142 lb 4.8 oz Constitutional Constitutional: no acute distress *Routine Respiratory Exam Respiratory: Absent respiratory distress *Routine Cardiovascular Exam Cardiovascular: Absent tachycardia Progress Note: A&P Assessment and plan (1) GI (gastrointestinal bleed): Problem details: Status post EGD with argon plasma coagulation and clip placement at outside facility approximately 3 weeks ago Status: Acute (2) Anemia: Status: Acute (3) Chronic anticoagulation: Status: Chronic (4) Atrial fibrillation: Status: Chronic Assessment and Plan Assessment and Plan for All Diagnoses:: Hemoglobin remains stable this a.m. Continue to hold anticoagulation just to the degree that is medically feasible Continue proton pump inhibition and Carafate Okay from surgical standpoint for discharge home with close outpatient follow-up
[2025-09-13 08:40] VITALS: BP 142/80; PULSE 102
[2025-09-13] MEDS: PANTOPRAZOLE 40MG VIAL 40 MG IV (08:41)
[2025-09-13] MEDS: CARVEDILOL 25MG TABLET 25 MG PO (08:41)
--- NOTE | 2025-09-13 09:41 | SW/DCPLANNER ---
Addendum entered by aMryellen Lechuga 09/13/25 13:44: Faxed patient's information to [facility] and they have accepted patient. Tre Original Note: I spoke w/ patient and his regarding plans once medically stable for discharge. PT evaluated patient and recommended home health services. Patient and are agreeable to home health w/ no agency preference care [facility]. CM will set up home health services. Patient will discharge home today.
--- NOTE | 2025-09-13 09:57 | HMH.PTEV ---
Physical Therapy Evaluation Rehab PT IP Evaluation Start: 09/11/25 16:38 Freq: ONCE Status: Active Protocol: Document 09/13/25 09:14 LINDSEY (Rec: 09/13/25 09:51 LINDSEY [id number]) Subjective/History History History Per H&P: Mr. Grier is a pleasant 89-year-old male with history of dementia who presented to the ER with concern for black stools and weakness. Initial workup showed concern for anemia with hemoglobin of 6.7. Of note he had labs obtained by his PCP in the past 2 days and they came back abnormal. Patient was informed to come to the ER for evaluation for his recurrent anemia. Given his anemia, ER consulted medicine for admission and further management of possible GI bleed. After arriving to the unit, patient significant other is available to provide additional history as patient is a very poor historian. She states he was actually admitted to [facility] on 1128 after arriving to the ER due to concern for black stools. He was there for approximately a week. EGD was performed that found duodenal erosions with no active bleeding. Had ectasia in the duodenum and stomach. 3 areas were cauterized with argon laser and 2 clips were placed. Received blood transfusion during that admission and was discharged with a hemoglobin of 8.7. His Eliquis had been resumed on 08/24 at 5 mg twice daily. His last dose was yesterday morning. He is not currently on iron supplementation as an outpatient. She has had previous discussions with his national guard member about risk of bleeding versus risk of stroke and need for anticoagulation. Discussed decreasing dosage and holding dosage as options. She denies that he has had any fever, vomiting, bright red blood per rectum. Subjective Subjective PLOF: Able to ambulate short distances using a RW. HOME: Lives with his social worker assistant in a home. ASSIST: [employer] able to provide 24/7 assist if needed . [facility] How much help from another person do you currently need... Turning from your A little back to your side while in a flat bed without using bedrails? Moving from lying on A little back to sitting on the side of a flat bed without using bedrails? Moving to and from a None bed to a chair ( including a wheelchair)? Standing up from a None chair using your arms? (e.g., wheelchair, bedside chair) Walking in hospital A little room? Climbing 3-5 steps A little with a railing? Mobility Score 20 Mobility Level [facility] Mobility 6 Walk 10 steps or more Mobility Calculator Rehab PT IP Eval Objective Appearance Patient Behavior Appropriate,Cooperative Patient Orientation Person Difficulty following none instructions Speech Pattern Clear Ambulation Patient Able to Yes Ambulate Ambulation Observation IP General Gait Narrow Based Gait Pattern Observation Ambulation Distance 25 (feet) Ambulation Assistive Rolling Walker Device Ambulation Ability Supervision/Stand by Balance Ability to Arise Able, uses arms to help Sitting Balance Steady, safe Standing Balance Steady, wide stance Dynamic Sitting Good Balance Ability Dynamic Standing Fair Balance Ability Rehab PT IP prob,goals,plan Problems Date of Evaluation: 09/13/25 PT IP Problems Transfers,Gait,Balance,Self care,Safety Rehab Potential Rehab Potential Good Plan PT Intervention Plan Transfers,Gait,Balance,Self care,Safety,Therapeutic Exercise Other Intervention 1-2 times Plan PT Plan Frequency Daily Duration Goals Met Discharge Goals Bed Transfer Ability Independent Sit to Stand Chair Independent Transfer Ability Ambulation Distance 50 (feet) Discharge Plan PT Discharge Plan Pt most appropriate for d/c home with home health and continued 24/ care by social worker assistant. Pt would benefit from skilled PT while at [facility] to address deficits. Eval Complexity Eval Charge Codes 04269 - Moderate Complexity PHYSICIAN CERTIFICATION: I certify the specified therapy services for Valdez Grier are required, authorized, and reviewed every 30 days.
--- NOTE | 2025-09-13 10:59 | CARE MANAGER ---
Addendum entered by Ebony Howell RN 09/13/25 11:00: Patient requests this come from [facility]. Original Note: Patient is unable to get to the toilet facilities due to weakness and will require a bedside commode.
--- NOTE | 2025-09-13 12:05 | HMH.OTEV ---
OT Evaluation Rehab OT IP Evaluation Start: 09/11/25 16:39 Freq: ONCE Status: Discharge Protocol: Document 09/13/25 12:01 [facility] (Rec: 09/13/25 12:04 [facility] [id number]) Rehab OT IP Assessment Subjective History Per H&P: Mr. Grier is a pleasant 89-year-old male with history of dementia who presented to the ER with concern for black stools and weakness. Initial workup showed concern for anemia with hemoglobin of 6.7. Of note he had labs obtained by his PCP in the past 2 days and they came back abnormal. Patient was informed to come to the ER for evaluation for his recurrent anemia. Given his anemia, ER consulted medicine for admission and further management of possible GI bleed. After arriving to the unit, patient significant other is available to provide additional history as patient is a very poor historian. She states he was actually admitted to [facility] on 1128 after arriving to the ER due to concern for black stools. He was there for approximately a week. EGD was performed that found duodenal erosions with no active bleeding. Had ectasia in the duodenum and stomach. 3 areas were cauterized with argon laser and 2 clips were placed. Received blood transfusion during that admission and was discharged with a hemoglobin of 8.7. His Eliquis had been resumed on 08/24 at 5 mg twice daily. His last dose was yesterday morning. He is not currently on iron supplementation as an outpatient. She has had previous discussions with his crime investigator special agent about risk of bleeding versus risk of stroke and need for anticoagulation. Discussed decreasing dosage and holding dosage as options. She denies that he has had any fever, vomiting, bright red blood per rectum. Subjective PLOF: Able to transfer short distances using a RW. Caregiver has been assisting with ADLs such as lower body dressing/bathing. He has been dependent on caregiver to complete all IADLs. He can no longer drive HOME: Lives with his wireless network engineer in a home. ASSIST: [employer] Rate Supervisor able to provide 24/7 assist if needed . [ End ] Objective Patient Orientation Person,Place,Birthday Right Upper Min Limitation <25% Extremity Gross ROM Left Upper Extremity Min Limitation <25% Gross ROM Shoulder ROM Muscle Weakness Limitations Elbow ROM Muscle Weakness Limitations Wrist Limitations of Muscle Weakness Range of Motion Bed Mobility bed mobility-scooting,bed mobility - supine/sit Assist Level Minimal x 1 (25% assist) Transfer Training Sit/Stand Transfer Assist Level Contact Guard/Hand Hold Chair Transfer Contact Guard/Hand Hold Ability Chair Transfer Sit to/from Ambulatory Technique Chair Transfer Rolling Walker Assistive Devices Lower Body Dressing Moderate Assistance Ability Rehab OT IP prob,goals,plan Problems Date of Evaluation: 09/13/25 OT IP Problems Bed Mobility,Transfers,Balance,Self care,Safety Rehab Potential Rehab Potential Good Equipment Needs Assistive Devices Rolling / Wheeled Walker Plan OT intervention Plan Bed Mobility,Transfers,Balance,Self care,Safety, Therapeutic Exercise OT Plan Frequency Daily Duration LOS Discharge Goals Bed Mobility Ability Standby Assistance Sit to Stand Chair Supervision/Stand by Transfer Ability Chair Transfer Supervision/Stand by Ability Chair Transfer Sit to/from Ambulatory Technique Chair Transfer Rolling Walker Assistive Devices Lower Body Dressing Minimal Assistance Ability Upper Body Dressing Standby Assistance Ability Bathing Ability Minimal Assistance Performing Toilet Standby Assistance Hygiene Ability Overall Commode/ Standby Assistance Toilet Transfer Ability Commode/Toilet Sit to/from Ambulatory Transfer Technique Discharge Plan OT Discharge Plan Pt most appropriate for d/c home with home health and continued 15/04 care by wireless network engineer. Pt would benefit from skilled OT while at [facility] to address deficits. [ End ] Eval Complexity Eval Charge Codes 20536 - Moderate Complexity PHYSICIAN CERTIFICATION: I certify the specified therapy services for Valdez Grier are required, authorized, and reviewed every 30 days.
--- NOTE | 2025-09-15 10:01 | SW/DCPLANNER ---
Phoned patient x2. Left messages with name and a call back number. Tre Anand
== END 2025-09-13 10:38 | disposition home or self-care (01) | DRG 813 ==
LOC: ER 11:14 → ICU 11:20 → 2ND 09-12 16:00
PROVIDERS: Surgery; Admitting Provider Internal Medicine Adolescent Medicine; Emergency Provider Student in an Organized Health Care Education/Training Program; PCP Nurse Practitioner Family; Visit Provider Internal Medicine Adolescent Medicine
DX: D68.32 Hemorrhagic disorder due to extrinsic circulating anticoagulants (principal); K92.2 Gastrointestinal hemorrhage, unspecified; D62 Acute posthemorrhagic anemia; Z78.9 Other specified health status; I10 Essential (primary) hypertension; I48.91 Unspecified atrial fibrillation; Z79.01 Long term (current) use of anticoagulants; F03.90 Unspecified dementia, unspecified severity, without behavioral disturbance, psychotic disturbance, mood disturbance, and anxiety; T45.515A Adverse effect of anticoagulants, initial encounter; N40.0 Benign prostatic hyperplasia without lower urinary tract symptoms; Z88.0 Allergy status to penicillin; Z88.8 Allergy status to other drugs, medicaments and biological substances; Z79.82 Long term (current) use of aspirin; Z95.1 Presence of aortocoronary bypass graft; Z95.0 Presence of cardiac pacemaker; I25.10 Atherosclerotic heart disease of native coronary artery without angina pectoris; Z87.891 Personal history of nicotine dependence
CPT/HCPCS: 36415; 36430; 80053; 82272; 83735; 85014; 85018; 85025; 85610; 86803; 86850; 87389; 93005; 97162; 97166; 99285; G0328; J1756; J2470; J7050; J7120; P9016